=== PATIENT | female | born 1955 | race Caucasian/White ===

== ENCOUNTER → 2018-01-14 07:07 | Outpatient (CLI) | payer OTHER, SELFPAY ==
--- NOTE | 2018-01-14 07:10 | BI_ITS ---
MAMMOGRAPHY - BILATERAL SCREENING 3-D LUCILLE SYNTHESIS REASON FOR EXAM: Female, 62 years old. Bilateral Screening 3-D tomosynthesis PERTINENT HISTORY: Aunt with breast cancer.. TECHNIQUE: 2-D mammograms and 3-D Lucille synthesis of the breast (s) were performed. CAD was performed. COMPARISON: 01/11/2017 FINDINGS: The breast composition is heterogeneously dense that can obscure small breast masses. Scattered benign calcifications are seen. No dense spiculated masses or suspicious microcalcifications are identified. No architectural distortion is identified. There is no skin thickening or retraction. There has been no significant change since the prior study. BI/SCREENING MAMM (CAD), BILAT IMPRESSION: No mammographic signs of malignancy. Routine yearly mammograms recommended. ASSESSMENT CATEGORY: BIRADS Category 2: Benign. A letter regarding these results will be sent to the patient by the facility within 30 days. FOLLOW UP RECOMMENDATION: Yearly follow up mammogram recommended. (A) Approximately 10% of breast cancers are not detected by mammography. A normal mammogram should not delay biopsy of a clinically suspicious abnormality. Electronically Signed: Boyd Portillo MD at 8:42 EDT , Service support ,
== END ==
PROVIDERS: Family Provider Internal Medicine; PCP Internal Medicine; Visit Provider Internal Medicine
DX: Z12.31 Encounter for screening mammogram for malignant neoplasm of breast (principal)
CPT/HCPCS: 77063; 77067

== ENCOUNTER → 2018-07-27 14:21 | Outpatient (CLI) | payer SELFPAY ==
--- NOTE | 2018-07-27 14:25 | CT_ITS ---
HISTORY: Hyperlipidemia. CT chest over-read only for calcium scoring. Exam: Limited CT chest without contrast for coronary artery calcium scoring. TECHNIQUE: Helically acquired images were obtained of the chest and processed for coronary artery calcium scoring. IV Contrast dosage and agent: None. Oral contrast: None. COMPARISON: Chest x-ray 07/26/2014 Findings: Coronary artery calcium scores as follows: Left main: 0 Left anterior descendin Left circumflex: 0 Right coronary artery: 0 Total calcium score: 0 Limited visualization of the lung parenchyma. On image #24, right middle lobe 5 x 3 mm circumscribed nodule which is probably benign and appears noncalcified. Normal heart size. No pericardial effusion. Numerous small calcifications within both breasts in keeping with adenosis. CT/Limited Chest CT w/CCTA IMPRESSION: 1. CT calcium score of 0. 2. Right middle lobe 5 mm nodule which is probably benign and too small to further characterize by PET scan. 3. Recommend reevaluation with follow-up CT chest without contrast in 6 months to assure stability. Individualized dose optimization techniques were used for this CT. at [id number] Reported and signed by: John Duggan MD Electronically Signed: John Duggan, at 5:46 EST Tel , Service support ,
[2018-07-27 14:52] VITALS: BP 104/59; PULSE 50; RESP 14; O2SAT 99; BMI 23.7
--- NOTE | 2018-07-27 17:39 | CCTA_ITS ---
Calcium Scoring Date of Study:: 07/27/18 Coronary Calcium Scoring: High-resolution computed tomographic imaging of the chest was performed on 07/27/2018 with particular attention paid to the coronary arteries. Images from the examination were analyzed for the presence and extent of coronary artery calcification using the coronary calcification software. The patient tolerated the procedure well there were no complications. The results of the coronary calcification analysis are provided below. Coronary artery score. Left main 0 Left anterior descending artery 0 Left circumflex artery 0 Right coronary artery 0 Total Agagston score 0 Based on the above findings the patient has minimal to no evidence of atherosc lerotic plaquing.
== END ==
PROVIDERS: Family Provider Internal Medicine; PCP Internal Medicine; Referring Provider Internal Medicine; Visit Provider Internal Medicine
DX: E78.5 Hyperlipidemia, unspecified (principal)
CPT/HCPCS: 75571; 76380

== ENCOUNTER → 2018-07-28 08:29 | Outpatient (CLI) | payer OTHER, SELFPAY ==
[2018-07-27 14:52] VITALS: BMI 23.7
--- NOTE | 2018-07-28 08:48 | BD_ITS ---
STUDY: DUAL ENERGY X-RAY ABSORPTIOMETRY / DXA REASON FOR EXAM: Female, 62 years old. The patient is postmenopausal. No loss of height. TECHNIQUE: Bone Mineral Density (BMD) measurements of lumbar spine and bilateral hips were obtained. COMPARISON: Comparison is made with prior study dated January 31, 2014. FINDINGS: Lumbar Spine (L1-L4): g/cm2 (1.081) / T-score (-0.8) / Z-score (0.7) Findings are suggestive of normal bone density with a low fracture risk. Left Femur Total: g/cm2 (0.925) / T-score (-0.7) / Z-score (0.5) Left Femoral Neck: g/cm2 (0.794) / T-score (-1.8) / Z-score (-0.3) Right Femur Total: g/cm2 (0.924) / T-score (-0.7) / Z-score (0.5) Right Femoral Neck: g/cm2 (0.868) / T-score (-1.2) / Z-score (0.2) The T-Scores on the most recent prior examination were: Lumbar Spine (L1-L4): There has been worsening of bone density since the previous examination. Left Femur Total: which represents a worsening of 2.3%. Right Femur Total: which represents a worsening of 2.0%. BD/Dexa Bone Density Study IMPRESSION: The patient is considered osteopenic as outlined below according to World Cresencio Organization (WHO) criteria with a moderate fracture risk. There has been worsening of bone density since the previous examination. Reference Information: The T-score is the number of standard deviations above or below the standard which is normal for young adults at their peak bone mineral density. The World Health Organization (WHO) interprets the T-scores as follows: Above -1 Normal bone density Between -1 and -2.5 Osteopenia Equal to / or below -2.5 Osteoporosis As a practical clinical guideline, osteopenia may be graded as follows: Mild -1 through -1.5 Moderate -1.6 through -2.0 Severe -2.1 through -2.4 The Z-score is the number of standard deviations above or below age-matched controls. A Z-score of less than -1.5 would be considered abnormal. References: 1. NIH Osteoporosis and Related Bone Diseases http://www.osteo.org 2. International Society for Clinical Densitometry http://www.iscd.org 3. National Osteoporosis Foundation http://www.nof.org Electronically Signed: Raman Cox MD at 15:53 EST , Service support ,
== END ==
PROVIDERS: Family Provider Internal Medicine; PCP Internal Medicine; Referring Provider Internal Medicine; Visit Provider Internal Medicine
DX: N95.1 Menopausal and female climacteric states (principal)
CPT/HCPCS: 77080

== ENCOUNTER → 2018-12-20 07:49 | Outpatient (CLI) | payer MEDICARE, OTHER, SELFPAY ==
[2018-07-27 14:52] VITALS: BMI 23.7
--- NOTE | 2018-12-20 07:52 | CT_ITS ---
STUDY: CT CHEST WITHOUT CONTRAST REASON FOR EXAM: Female, 63 years old. Follow-up nodule RADIATION DOSAGE (If Supplied By Facility): CTDIvol = ( 8.91 ) mGy, DLP = ( 320.74 ) mGycm TECHNIQUE: Transaxial imaging was performed without the administration of intravenous contrast material. Individualized dose optimization techniques were used for this CT. COMPARISON: Previous study of July 27, 2018 FINDINGS: There is a stable 4 mm nodule of the right middle lobe image 68 series 4. No new or additional nodules are evident. There is no demonstrated pleural abnormality. Normal heart and pericardium. Normal mediastinum. Normal hilar regions. Normal unenhanced pulmonary arteries. Normal aorta arch and descending thoracic aorta. There is mild diffuse endplate spondylosis of the thoracic vertebrae. There is no demonstrated abnormality of the visualized upper abdomen. CT/Chest without Contrast IMPRESSION: Stable 4 mm nodule of the right middle lobe. Appropriate follow-up using Fleischner Society criteria is recommended. Mild diffuse endplate spondylosis of the thoracic spine. Electronically Signed: Brandt Barbour MD at 20:16 EDT , Service support ,
== END ==
PROVIDERS: Family Provider Internal Medicine; PCP Internal Medicine; Referring Provider Internal Medicine; Visit Provider Internal Medicine
DX: R91.8 Other nonspecific abnormal finding of lung field (principal)
CPT/HCPCS: 71250

== ENCOUNTER → 2019-01-16 07:10 | Outpatient (CLI) | payer MEDICARE, OTHER, SELFPAY ==
[2018-07-27 14:52] VITALS: BMI 23.7
--- NOTE | 2019-01-16 07:12 | BI_ITS ---
MAMMOGRAPHY - BILATERAL SCREENING REASON FOR EXAM: Female, 63 years old. Routine annual screening examination. PERTINENT HISTORY: Aunts with breast cancer. TECHNIQUE: Digital bilateral breast lucille (3D mammographic acquisition) in the CC and MLO projections. 2-D mediolateral oblique (MLO) and craniocaudad (CC) views of both breasts were obtained. CAD: Full Field Digital Mammography with Computer Added Detection was performed. COMPARISON: Comparison is made with prior study dated January 14, 2018 and January 11, 2017. FINDINGS: Breast Composition: The breasts are heterogeneously dense, which may obscure small masses. There are no dominant masses or suspicious calcifications. Stable scattered macrocalcifications. No other significant abnormalities are identified. There has been no significant change since the prior study. BI/SCREEN MAMM (CAD) W/LUCILLE BILAT IMPRESSION: Stable bilateral screening mammogram. Yearly follow-up mammogram recommended. (A) ASSESSMENT CATEGORY: BIRADS Category 2: Benign. A letter regarding these results will be sent to the patient by the facility within 30 days. Approximately 10% of breast cancers are not detected by mammography. A normal mammogram should not delay biopsy of a clinically suspicious abnormality. [id number] Electronically Signed: Raman Cox, at 9:12 EDT , Service support ,
== END ==
PROVIDERS: Family Provider Internal Medicine; PCP Internal Medicine; Referring Provider Internal Medicine; Visit Provider Internal Medicine
DX: Z12.31 Encounter for screening mammogram for malignant neoplasm of breast (principal); Z80.3 Family history of malignant neoplasm of breast
CPT/HCPCS: 77063; 77067

== ENCOUNTER → 2020-01-22 13:59 | Outpatient (CLI) | payer MEDICARE, OTHER, SELFPAY ==
[2018-07-27 14:52] VITALS: BMI 23.7
--- NOTE | 2020-01-22 14:02 | BI_ITS ---
MAMMOGRAPHY - BILATERAL SCREENING REASON FOR EXAM: Female, 64 years old. Routine annual screening examination. PERTINENT HISTORY: Aunts with breast cancer. TECHNIQUE: Digital bilateral breast lucille (3D mammographic acquisition) in the CC and MLO projections. 2-D mediolateral oblique (MLO) and craniocaudad (CC) views of both breasts were obtained. CAD: Full Field Digital Mammography with Computer Added Detection was performed. COMPARISON: Comparison is made with prior study dated 01/16/2019 and 01/14/2018. FINDINGS: Breast Composition: The breasts are heterogeneously dense, which may obscure small masses. There are no dominant masses or suspicious calcifications. Stable scattered macrocalcifications. No other significant abnormalities are identified. There has been no significant change since the prior study. BI/SCREEN MAMM (CAD) W/LUCILLE BILAT IMPRESSION: Stable bilateral screening mammogram. Yearly follow-up mammogram recommended. (A) ASSESSMENT CATEGORY: BIRADS Category 2: Benign. A letter regarding these results will be sent to the patient by the facility within 30 days. Approximately 10% of breast cancers are not detected by mammography. A normal mammogram should not delay biopsy of a clinically suspicious abnormality. [id number] Electronically Signed: Raman Cox, at 15:05 EDT , Service support ,
--- NOTE | 2020-01-22 14:50 | CT_ITS ---
STUDY: CT CHEST WITHOUT CONTRAST REASON FOR EXAM: Female, 64 years old. LUNG NODULE FOLLOW UP RADIATION DOSAGE (If Supplied By Facility): CTDIvol = ( 8.25 ) mGy, DLP = ( 299.47 ) mGycm TECHNIQUE: Transaxial imaging was performed without the administration of intravenous contrast material. Multiplanar coronal and sagittal images were reformatted. Individualized dose optimization techniques were used for this CT. COMPARISON: Comparison is made with prior study dated 12/20/2018. FINDINGS: Small benign-appearing bilateral axillary lymph nodes. Stable minimal scarring at the lung apices. Stable 4 mm noncalcified nodule in the anterior aspect of right middle lobe as seen on axial image #154. There is no demonstrated pleural abnormality. Normal heart and pericardium. Normal mediastinum. Normal hilar regions. Normal unenhanced pulmonary arteries. There is mild atherosclerotic calcification of the aortic arch . There are multi-level degenerative changes of the thoracic spine. There is no demonstrated abnormality of the visualized upper abdomen. CT/Chest without Contrast IMPRESSION: Stable 4 mm nodule in the anterior aspect of the right middle lobe. No other abnormality is seen. Electronically Signed: Raman Cox, at 8:26 EDT , Service support ,
== END ==
PROVIDERS: PCP Internal Medicine; Referring Provider Internal Medicine; Visit Provider Internal Medicine
DX: Z12.31 Encounter for screening mammogram for malignant neoplasm of breast (principal); R91.8 Other nonspecific abnormal finding of lung field
CPT/HCPCS: 71250; 77063; 77067

== ENCOUNTER 2021-02-25 09:30 | Outpatient (RCR) | payer MEDICARE, OTHER, SELFPAY ==
[2018-07-27 14:52] VITALS: BMI 23.7
--- NOTE | 2021-01-30 14:04 | HP.PTEVAL_ITS ---
Patient's Visit Information SHIRA OROZCO is a 65 year old F referred to Physical Therapy by Dr. Merly Wesley MD with a diagnosis of R SCIATICA. Date of Evaluation: 01/30/21 Physical Therapist: Claudine Hernandez PT, Cert MDT - Visit Plan Frequency: 2-3x /Week Duration: 4-6 Weeks Plan: [facility]QUAT[facility] PT FOR PAIN RELIEF, POSTURE CORRECTION/STRENGTHENING, INSTRUCTION IN APPROPRIATE BODY MECHANICS AND ACTIVITY MODIFICATIONS. DLS STARTING WITH A NEUTRAL SPINE PROGRESSING ROM TOLERATED. YOSEPH LE ROM, STRETCHING AND STRENGTHENING. HEP INSTRUCTION. - Subjective Work/Leisure: RETIRED. LIKES TO PLAY [employer] BALL AND DOES SOME HOME EX'S. Present symptoms: RIGHT LOW BACK PAIN, RIGHT THIGH, RIGHT LEG AND RIGHT FOOT PAIN. FEELS LIKE ELECTRICITY GOING THROUGH MY LEG. ALSO GETS NUMBNESS AND TINGLING ALL THE WAY DOWN THE LEG. Present since: ABOUT 8 WEEKS AGO. Pain Scale: WORST 9/10, LEAST 0/10. Currently: /10. Commenced as a result of: NO APPARENT REASON. Symptoms at onset: RIGHT LE. Worse: STANDING, TRYING TO GET COMFORTABLE IN BED, ROLLING OVER IN BED, GETTING OUT OF BED, INITIATING GAIT IN THE MORNING. WORKING IN THE KITCHEN. Better: FLEXION IN STANDING, SITTING ON A CHAIR, RIGHT LE EVELINA POSITION IN SITTING. Disturbed sleep: YES. Previous history/Previous treatment: STATES SHE HAD ABOUT 10 WEEKS OF PHYSICAL THERAPY AT [facility] AUGUST -OCTOBER 2020 FOR PLANTAR FASCITIS LEFT FOOT. STATES SHE HAD NECK, BACK AND HIP ADJUSTMENTS WHILE AT [facility]. THEY ALSO GAVE HER A LIFT IN LEFT SHOE STARTING IN AUGUST. L FOOT SX'S ARE GONE. STILL WEARING THE HEEL LIFT. TRIP TO [facility] ABOUT 2 WEEKS AGO GETTING BACK THIS PAST WEDNESDAY. PATIENT REPORTS SHE ENDED UP WITH A NECK BRACE, A BACK BRACE AND A HEEL LIFT FROM THE [facility]. NOT CURRENTLY USING NECK OR BACK BRACE ANYMORE. Treatment this episode: STEROID BEFORE [facility] - PATIENT DOES NOT THINK IT HELPED. PATIENT DENIES ANY OTHER TREATMENTS SINCE ONSET OF R SCIATICA ABOUT 8 WKS AGO. SCIATICA STARTED WITHIN ABOUT A MONTH AFTER LAST [facility]. Coughing/sneezing/straining: NEGATIVE. Gait: IF IT HURTS IT CAUSES LIMP ON RIGHT LE AND PATIENT WALKS FAST SO SHE CAN GET OFF HER FEET SOON POSSIBLE. WALKING THROUGH AIRPORT WAS AWFUL. Difficulty initiating urinatin: NO. Accidents: NO. Unexplained weight loss: NO. Imaging: JUST LUMBAR X-RAY AT [facility] WHEN THERE FOR PLANTAR FASCITIS. PMH/Recent major surgery: HYPOTHYROIDISM. HIGH CHOLESTEROL. - Objective Sitting/Standing Posture: FAIR. Lordosis: REDUCED. Lateral shift: NO. Relev ant shift: N/A. Active Correction of posture: NE. Other Observations: INDEP GAIT AND TRANSFERS. Motor deficit: YOSEPH LE'S 5/5 WITH MMT'ING EXCEPT R HIP 4-/5 AND L 4/5. Sensory deficit: YOSEPH LE LIGHT TOUCH SENSATION INTACT AND SYMMETRICAL. ROM deficit: YOSEPH LE'S WFL. Reflexes: 2/3 YOSEPH LE'S. DURAL SIGNS: NEGATIVE YOSEPH. Lumbar mvmt loss: flex - NIL. ext - NIL. R SG - MOD. L SG - MOD. Core strength: FAIR. Palpation: NO ACUTE LUMBAR OR SACRAL TENDERNESS. TREATMENT: NEUROMUSCULAR REEDUCATION - RETRAINING OF MVMT AND POSTURE FOR SITTING, LYING AND STANDING ACTIVITIES. - Balance/Special Test Scores Oswestry Low Back Score: 12 - Goals Goal 1:: DECREASE C/O LOW BACK AND RIGHT LE SX'S. Goal Time Frame: 4-6 Weeks Goal 2:: IMPROVE LIFTING, STANDING, SLEEP, TRAVEL AND HOMEMAKING FUNCTION Goal Time Frame: 4-6 Weeks Goal 3:: INSTRUCT IN PROPHYLAXIS Goal Time Frame: 4-6 Weeks - Anticipated Interventions Patient/Client Instruction: Educate patient on: Condition, Plan of Care, Risk Factors For the Purpose of:: To improve self management Therapeutic Exercise to Include: Strength training, Body mechanics, Postural training, Neuromotor development, In an aquatic setting, Dynamic Lumbar Stabilization For the Purpose of:: To decrease pain, To improve muscle performance and motor function, To increase tolerance to activity/condition/position, To improve ability of physical actions for home/community/work/leisure TENS: Yes IF ES: Yes Cryotherapy (ice pack, ice massage): Yes Thermo therapy (hot pack): Yes Ultrasound (thermal/non thermal): Yes For the Purpose of:: To decrease pain, To improve nutrient delivery to tissue Thank you for the opportunity to evaluate your patient. For Medicare and Medicare HMO plans, please review the plan of care and approve it. It will need to be FAXED BACK to us at [phone] for Medicare purposes. For Medicare only, by signing this I certify the plan of care. Please let me know if there are questions or concerns regarding this plan of care. Physician Signature: Date:
--- NOTE | 2021-02-25 10:46 | HP.PTDCSUM ---
It has been my pleasure to treat SHIRA OROZCO referred by Dr. Merly Wesley MD, with the diagnosis of R SCIATICA for a total of 10 visit(s). Discharge Date: Please see the following information for a summary of their discharge status. Subjective: PATIENT REPORTS SHE WAS PAINFREE ALL DAY YESTERDAY. STATES THAT YESTERDAY SHE COOKED DINNER FOR COMPANY, DID EX'S, CLEANED, GROCERY SHOPPED AND STAYED BUSY. STATES SHE HAD A LITTLE PAIN THIS MORNING DOWN HER RIGHT LEG BUT SHE THINKS SHE GOT OUT OF BED TOO EARLY AND TOO QUICKLY. THE PAIN ONLY LASTED A FEW MINUTES. PATIENT REPORTS FEELING BETTER AFTER THE US TREATMENTS AND QUESTIONING IF SHE CAN HAVE THEM PERIODICALLY NEEDED. Lumbar Spine Pain Intensity (Out of 10): 0 % Improvement: 97 Objective/Function: PATIENT WAS SEEN TODAY FOR RE-ASSESSMENT OF PROGRESS TOWARD THE SET PT GOALS AND THE NEED FOR FURTHER PHYSICAL THERAPY VS READINESS FOR DISCHARGE. PATIENT HAS MADE GOOD PROGRESS TOWARD ALL PT GOALS AND SHE IS INDEP WITH A HEP. I AM HOPEFUL THAT SHE WILL CONTINUE TO IMPROVE WITH WHAT WE HAVE TAUGHT HER AND BE ABLE TO GET BACK TO HER PRIOR LEVEL OF FUNCTION BUT AT THIS POINT SHE IS STILL LIMITING HER ACTIVITES. UPON EXAM TODAY: Motor deficit: YOSEPH LE'S 5/5. ROM deficit: YOSEPH LE'S WFL. DURAL SIGNS: NEGATIVE YOSEPH LE'S. Lumbar mvmt loss: flex - NIL. ext - NIL. R SG - MOD. L SG - MOD. PATIENT DENIES PAIN WITH LUMBAR ROM TESTING ALL PLANES. FURTHER HEP INSTRUCTION GIVEN TODAY FOR THE ADDITION OF GTB LAE'S AND MULTIFIDUS PUSH OUTS. INCREASED MR'S TO BTB. PATIENT TOLERATED ALL INTERVENTIONS WELL TODAY. Goal 1:: DECREASE C/O LOW BACK AND RIGHT LE SX'S. Goal Progress: Goal Met Goal 2:: IMPROVE LIFTING, STANDING, SLEEP, TRAVEL AND HOMEMAKING FUNCTION Goal Progress: Goal Met Goal 3:: INSTRUCT IN PROPHYLAXIS Goal Progress: Goal Met Plan: D/C TO HEP AND FOLLOW UP WITH PCP. PATIENT AGREEABLE. If there are questions or concerns regarding this patient's physical therapy, please feel free to call me at [phone]. Thank you for the referral of this patient. Sincerely, Claudine Hernandez, PT, Cert MDT Balance/Gait/Functional tests - Balance/Special Test Scores Oswestry Low Back Score: 10
== END 2021-02-25 15:50 | disposition home or self-care (01) ==
LOC: PT 09:30
PROVIDERS: PCP Internal Medicine; Referring Provider Internal Medicine; Visit Provider Internal Medicine
DX: M54.31 Sciatica, right side (principal)
CPT/HCPCS: 97035; 97110; 97112; 97113; 97162; 97164; 97530

== ENCOUNTER → 2021-03-12 07:09 | Outpatient (CLI) | payer MEDICARE, OTHER, SELFPAY ==
[2018-07-27 14:52] VITALS: BMI 23.7
--- NOTE | 2021-03-12 07:15 | MRI_ITS ---
HISTORY: Right sciatica. TECHNIQUE: Multiplanar and multisequence MR images of the lumbar spine. IV Contrast dosage and agent: None. # of images incl. paperwork: 120. COMPARISON: None. FINDINGS: VERTEBRAE: Vertebral body heights maintained. Mild bilateral pedicle bone marrow edema at L4-5 extending to the facets. ALIGNMENT: No significant anterior or posterior subluxation. CONUS: Normal morphology and position at L1-2. SOFT TISSUES: No paraspinal fluid collection. INTERVERTEBRAL DISCS: T12-L1, L1-2: No significant posterior disc herniation, central canal stenosis, or foraminal narrowing. Small perineural cysts incidentally noted. L2-3, L3-4:Minimal disc bulges and facet arthropathy without significant central canal stenosis or foraminal narrowing. L4-5: Mild posterior disc bulge osteophyte complex with facet arthropathy resulting in moderate central canal stenosis, mild left, and very mild right foraminal narrowing. L5-S1: Mild posterior disc bulge osteophyte complex with facet arthropathy resulting in minimal narrowing of the thecal sac and bilateral foramina. MRI/Spine Lumbar (Routine) IMPRESSION: Multilevel degenerative disc disease with spinal canal stenosis at L4-5 as described above. Mild bone marrow edema in the posterior elements of L4 and L5, from arthritis or stress reaction. at 1003 Reported and signed by: Charity Blanchard MD Electronically Signed: Charity Blanchard MD at 10:02 EDT Tel , Service support ,
--- NOTE | 2021-03-12 08:22 | BI_ITS ---
MAMMOGRAPHY - BILATERAL SCREENING REASON FOR EXAM: Female, 65 years old. Routine annual screening examination. PERTINENT HISTORY: Aunts with breast cancer. TECHNIQUE: Digital bilateral breast lucille (3D mammographic acquisition) in the CC and MLO projections. 2-D mediolateral oblique (MLO) and craniocaudad (CC) views of both breasts were obtained. CAD: Full Field Digital Mammography with Computer Added Detection was performed. COMPARISON: Comparison is made with prior study dated 01/22/2020 and 01/16/2019. FINDINGS: Breast Composition: The breasts are heterogeneously dense, which may obscure small masses. There are no dominant masses or suspicious calcifications. Stable scattered bilateral macrocalcifications. No other significant abnormalities are identified. There has been no significant change since the prior study. BI/SCRN MAMM (CAD)W/LUCILLE BILAT IMPRESSION: Stable bilateral screening mammogram. Yearly follow-up mammogram recommended. (A) ASSESSMENT CATEGORY: BIRADS Category 2: Benign. A letter regarding these results will be sent to the patient by the facility within 30 days. Approximately 10% of breast cancers are not detected by mammography. A normal mammogram should not delay biopsy of a clinically suspicious abnormality. [id number] Electronically Signed: Raman Cox MD at 9:41 EDT , Service support ,
== END ==
PROVIDERS: PCP Internal Medicine; Referring Provider Internal Medicine; Visit Provider Internal Medicine
DX: Z12.31 Encounter for screening mammogram for malignant neoplasm of breast (principal); M54.31 Sciatica, right side; M51.36 Other intervertebral disc degeneration, lumbar region; M48.061 Spinal stenosis, lumbar region without neurogenic claudication
CPT/HCPCS: 72148; 77063; 77067

== ENCOUNTER 2021-05-16 11:00 | Emergency (ER) | payer MEDICARE, OTHER, SELFPAY ==
[2021-05-16 11:01] VITALS: BP 130/79; PULSE 67; RESP 18; TEMP 36.6; O2SAT 100; BMI 24.1
--- NOTE | 2021-05-16 11:26 | RAD_ITS ---
No fracture or dislocation in the left ankle. Mild soft tissue swelling. STUDY: X-RAY - LEFT ANKLE REASON FOR EXAM: Female, 65 years old. Injury TECHNIQUE: 3 view(s) of the ankle. COMPARISON: None. FINDINGS: There is no evidence of fracture or dislocation. There are no significant degenerative changes. There are no radiodense foreign bodies. There is mild soft tissue swelling. RAD/Ankle min 3 Views IMPRESSION: No fracture or dislocation. Electronically Signed: Kevon Jo MD at 12:04 EST Tel , Service support ,
--- NOTE | 2021-05-16 12:48 | ED.VIS.LOWEX ---
HPI History of Present Illness Chief Complaint: Lower Extremity Injury Informant: patient Narrative Narrative: 65-year-old female arrives to the emergency department with left ankle injury. Patient states that she was playing pickle ball when she sustained a inversion injury to the left ankle. She denies any other injuries. [facility] Medical History Hypothyroidism Home Medications levothyroxine 88 mcg tablet 88 mcg PO DAILY 30 Days #30 tab 03/28/21 [History Last Taken Unknown] [id number]-Ca carb-vit K 18 mg iron-400 mcg-500 mg tablet 1 tab PO DAILY 03/28/21 [History Last Taken Unknown] rosuvastatin 5 mg tablet 5 mg PO DAILY 28 Days #28 tab 03/28/21 [History Last Taken Unknown] Allergy/AdvReac Type Severity Reaction Status Date / Time No Known Allergies Allergy Verified 05/16/21 11:03 Family History Father CVA (cerebral vascular accident), Onset Age: 82 Surgical History H/O tubal ligation History of foot surgery Social History Smoking Status: Never smoker alcohol intake: current Alcohol type: wine ROS ROS ED Constitutional Constitutional ED: Denies chills, fever(s) or weight loss Eyes Eyes: Denies change in vision or diplopia ENT ENT ED: Denies ear pain, rhinorrhea or sore throat Cardiovascular Cardiovascular: Denies chest pain, orthopnea, palpitations or racing heartbeat Respiratory/Chest Respiratory/Chest: Denies cough, dyspnea or orthopnea Gastrointestinal Gastrointestinal: Denies abdominal pain, diarrhea, nausea or vomiting Genitourinary Genitourinary ED: Denies dysuria, hematuria or urinary frequency Musculoskeletal Musculoskeletal: Reports other Details: See history of present illness ; Denies arthralgias or myalgias Integumentary Denies abscess or rash Neurologic Neurologic: Denies headache(s) or weakness Psychiatric Psychiatric: Denies anxiety, depression, suicidal ideation or suicidal thoughts Endocrine Endocrinology: Denies polydipsia, polyphagia or polyuria Allergic/Immunologic Allergic/Immunologic ED: Denies mouth swelling, tongue swelling or urticaria EXAM Physical Exam Const Vital Signs: 05/16/21 11:01 Temperature 97.9 F Temperature Source Temporal Pulse Rate 67 Respiratory Rate 18 Blood Pressure 130/79 H Blood Pressure Mean 96 Pulse Ox 100 Oxygen Delivery Method Room Air Positive well nourished and well developed General Appearance ED: well developed HEENT Reports normocephalic, head/scalp atraumatic and moist mucous membranes normocephalic and atraumatic Eyes PERRL and EOMs intact bilaterally Neck full ROM, no lymphadenopathy, supple and no JVD Resp normal respiratory effort and clear to auscultation bilaterally Cardio regular rate, regular rhythm and no murmurs GI normal to inspection, nondistended, normoactive bowel sounds and non-tender Palpation: soft Back/Spine no CVA tenderness and normal ROM Extremity Extremity Narrative: Left ankle demonstrates swelling and tenderness over the lateral malleolus. There is no fifth metatarsal pain or fibular head pain. No medial or posterior malleoli or pain. Achilles tendon appears intact. General Extremety ED: Yes edema General Extremity: edema Neuro oriented x3 and CN's II-XII intact bilaterally Sensorium / Orientation: alert Motor Exam: strength 5/5 throughout Psych mental status grossly normal Mood & Affect: Negative for depressed or tearful Skin no rashes or lesions noted and no wounds MDM MDM MDM Narrative Medical decision making narrative: My interpretation of the ankle films is no acute fracture. Patient will be treated conservatively and will use an air cast Radiography Diagnostic Testing: Clinical Impression(s) from Imaging Studies Ankle X-Ray 05/16/21 11:26 IMPRESSION: No fracture or dislocation. Electronically Signed: Kevon Jo MD at 12:04 EST Tel , Service support , Discharge Plan Triage Chief Complaint: Lower Extremity Injury ED Provider: Teo Castellanos Dx/Rx/DC Orders Clinical Impression: Left ankle sprain Instructions: ED Ankle Sprain (Adult) Prescriptions: No Action levothyroxine 88 mcg tablet 88 mcg PO DAILY 30 Days Qty: 30 RF: 0 rosuvastatin 5 mg tablet 5 mg PO DAILY 28 Days Qty: 28 RF: 0 Women's Daily Formula 18 mg iron-400 mcg-500 mg tablet 1 tab PO DAILY RF: 0 Primary Care Provider: Merly Wesley Referrals: Merly Wesley MD [Primary Care Provider] - As Needed Disposition Disposition: Home, Self Care
[2021-05-16 13:06] VITALS: BP 115/70; PULSE 73; RESP 18; O2SAT 98
== END 2021-05-16 13:07 | disposition home or self-care (01) ==
PROVIDERS: Emergency Provider Emergency Medicine; PCP Internal Medicine
DX: S93.402A Sprain of unspecified ligament of left ankle, initial encounter (principal); X50.1XXA Overexertion from prolonged static or awkward postures, initial encounter; Y93.89 Activity, other specified; Y92.9 Unspecified place or not applicable; Y99.8 Other external cause status; E03.9 Hypothyroidism, unspecified; Z79.899 Other long term (current) drug therapy
CPT/HCPCS: 73610; 99283

== ENCOUNTER 2021-09-15 13:53 | Outpatient (CLI) | payer MEDICARE, OTHER, SELFPAY ==
--- NOTE | 2021-09-15 13:55 | CT_ITS ---
STUDY: CT Chest W/O Contrast Injection 09/15/2021 5:43 PM REASON FOR EXAM: Female, 65 years old. LUNG NODULE Individualized dose optimization techniques were used for this CT. TECHNIQUE: Transaxial imaging was performed withoutIV contrast material. COMPARISON: 8.3.20 FINDINGS: There is no pneumothorax. There is no demonstrated pleural abnormality. 3.1 mm nodule in the right middle lobe. SE 4 IM: 75. ACR Lung CT Screening Reporting T Data System (Lung-RADS) score: 2 - Benign Appearance or Behavior. Recommend continued annual screening with low-dose CT (LDCT) in 12 months. Normal heart and pericardium with no evidence for calcifications of the coronary arteries. Normal mediastinum. Normal hilar regions. Normal pulmonary arteries. There is atherosclerotic calcification of the aortic arch with tortuosity and elongation of the aortic arch and descending thoracic aorta. There are multi-level degenerative changes of the thoracic spine. There are no acute findings of the upper abdomen. CT/Chest without Contrast IMPRESSION: 3.1 mm nodule in the right middle lobe. SE 4 IM: 75. This is decreased in size. ACR Lung CT Screening Reporting T Data System (Lung-RADS) score: 2 - Benign Appearance or Behavior. Recommend continued annual screening with low-dose CT (LDCT) in 12 months. Electronically Signed: Eron Osorio MD at 17:46 EDT ,
== END 2021-09-15 23:59 | disposition home or self-care (01) ==
LOC: CT 13:54
PROVIDERS: PCP Internal Medicine; Referring Provider Internal Medicine; Visit Provider Internal Medicine
DX: R91.8 Other nonspecific abnormal finding of lung field (principal)
CPT/HCPCS: 71250

== ENCOUNTER → 2022-03-17 | Outpatient (CLI) | payer MEDICARE, OTHER, SELFPAY ==
--- NOTE | 2022-03-17 13:46 | BI_ITS ---
MAMMOGRAPHY - BILATERAL SCREENING REASON FOR EXAM: Female, 66 years old. Routine annual screening examination. PERTINENT HISTORY: Aunts with breast cancer. TECHNIQUE: Digital bilateral breast lucille (3D mammographic acquisition) in the CC and MLO projections. 2-D mediolateral oblique (MLO) and craniocaudad (CC) views of both breasts were obtained. CAD: Full Field Digital Mammography with Computer Added Detection was performed. COMPARISON: Comparison is made with prior study dated 03/12/2021 and 01/22/2020. FINDINGS: Breast Composition: The breasts are heterogeneously dense, which may obscure small masses. There are no dominant masses or suspicious calcifications. Stable scattered bilateral macrocalcifications. No other significant abnormalities are identified. There has been no significant change since the prior study. BI/SCRN MAMM (CAD)W/LUCILLE BILAT IMPRESSION: Stable bilateral screening mammogram. Yearly follow-up mammogram recommended. (A) ASSESSMENT CATEGORY: BIRADS Category 2: Benign. A letter regarding these results will be sent to the patient by the facility within 30 days. Approximately 10% of breast cancers are not detected by mammography. A normal mammogram should not delay biopsy of a clinically suspicious abnormality. [id number] Electronically Signed: Raman Cox MD at 14:33 EDT ,
--- NOTE | 2022-03-17 13:53 | BD_ITS ---
STUDY: DUAL ENERGY X-RAY ABSORPTIOMETRY / DXA REASON FOR EXAM: Female, 66 years old. [id number]. The patient is postmenopausal. TECHNIQUE: Bone Mineral Density (BMD) measurements of lumbar spine and bilateral hips were obtained. COMPARISON: Comparison is made with prior study 07/28/2018. FINDINGS: Lumbar Spine (L1-L4): g/cm2 (0.831) / T-score (-1.7) / Z-score (0.3) Findings are suggestive of osteopenia with a moderate fracture risk. Left Femur Total: g/cm2 (0.872) / T-score (-0.6) / Z-score (0.8) Left Femoral Neck: g/cm2 (0.706) / T-score (-1.3) / Z-score (0.4) Right Femur Total: g/cm2 (0.879) / T-score (-0.5) / Z-score (0.9) Right Femoral Neck: g/cm2 (0.749) / T-score (-0.9) / Z-score (0.8) The T-Scores on the most recent prior examination were: Lumbar Spine (L1-L4): There has been worsening of bone density since the previous examination. Left Femur Total: which represents an improvement of 2.1%. Right Femur Total: which represents an improvement of 2.3%. BD/Dexa Bone Density Study IMPRESSION: The patient is considered osteopenic as outlined below according to World Cresencio Organization (WHO) criteria with a moderate fracture risk. There has been improvement of bone density since the previous examination. Reference Information: The T-score is the number of standard deviations above or below the standard which is normal for young adults at their peak bone mineral density. The World Health Organization (WHO) interprets the T-scores as follows: Above -1 Normal bone density Between -1 and -2.5 Osteopenia Equal to / or below -2.5 Osteoporosis As a practical clinical guideline, osteopenia may be graded as follows: Mild -1 through -1.5 Moderate -1.6 through -2.0 Severe -2.1 through -2.4 The Z-score is the number of standard deviations above or below age-matched controls. A Z-score of less than -1.5 would be considered abnormal. References: 1. NIH Osteoporosis and Related Bone Diseases www osteo.org 2. International Society for Clinical Densitometry www iscd.org 3. National Osteoporosis Foundation www nof.org Electronically Signed: Raman Cox MD at 13:37 EDT ,
== END | disposition home or self-care (01) ==
LOC: OPBI 13:43
PROVIDERS: PCP Internal Medicine; Visit Provider Internal Medicine
DX: Z12.31 Encounter for screening mammogram for malignant neoplasm of breast (principal); Z80.3 Family history of malignant neoplasm of breast; Z78.0 Asymptomatic menopausal state
CPT/HCPCS: 77063; 77067; 77080

== ENCOUNTER → 2022-10-07 | Outpatient (CLI) | payer MEDICARE, OTHER, SELFPAY ==
--- NOTE | 2022-10-07 12:01 | EKG12_ITS ---
Test Reason : PRE-OP Blood Pressure : / mmHG Vent. Rate : 062 BPM Atrial Rate : 062 BPM P-R Int : 176 ms QRS Dur : 112 ms QT Int : 408 ms P-R-T Axes : 057 -53 040 degrees QTc Int : 414 ms Normal sinus rhythm Left anterior fascicular block Abnormal ECG Confirmed by CARTER WELLINGTON, EMERY ([id number]), technical editor MICHEAL BOWMAN ([id number]) on 10/08/2022 7:44:12 AM Referred By: Kevon Avery Confirmed By:EMERY MACHADO MD
[2022-10-07 12:53] LABS: Absolute Lymphocyte Count 2.63 X10^3/uL (0.83-4.51); Absolute Neutrophil Count 4.3 X10^3/uL (2.0-7.7); Basophil# 0.06 X10^3/uL; Basophil% 0.8 % (0-1); Eosinophil# 0.23 X10^3/uL; Hematocrit 42.3 % (37-47); Lymphocyte # 2.63 X10^3/ul (0.83-4.51); Lymphocyte % 34.3 % (19-41); Mean Corp Hgb Conc 33.1 g/dL (32-36); Mean Corpuscular Volume 93.6 fL (81-99); Mean Platelet Vol. 8.7 fl (6.2-12.0); Monocyte# 0.46 X10^3/uL; NRBC Flagged by Analyzer 0 % (0-5); Neutrophil # 4.25 X10^3/uL (2.7-7.7); Neutrophil % 55.4 % (47-70); Platelet Count 268 K/mm3 (150-450); RBC Distribution Width SD 45.1 fl (35.1-43.9); Red Blood Count 4.52 M/mm3 (4.2-5.4); White Blood Count 7.7 K/mm3 (4.4-11.0)
[2022-10-07 13:23] LABS: Anion Gap 2 (5-15); BUN 26 mg/dL (7-18); BUN/Creat Ratio 24.5 RATIO (10-20); Chloride 106 mmol/L (98-107); Creatinine, Serum 1.06 mg/dL (0.55-1.02); EST Glomerular Filtration Rate 55 mL/min (>60); Est Glom Filt Rate - Afr Amer 66 mL/min (>60); Glucose 83 mg/dL (74-106); Potassium 4.4 mmol/L (3.5-5.1); Sodium Level 137 mmol/L (136-145)
== END | disposition home or self-care (01) ==
PROVIDERS: PCP Internal Medicine; Referring Provider Specialist; Visit Provider Physician Assistant Surgical
DX: Z01.818 Encounter for other preprocedural examination (principal)
CPT/HCPCS: 36415; 80048; 85025; 93005

== ENCOUNTER → 2023-01-05 | Outpatient (CLI) | payer MEDICARE, OTHER, SELFPAY ==
--- NOTE | 2023-01-05 15:13 | US_ITS ---
INDICATION: Hematuria EXAMINATION: Ultrasound US Kidney(s) complete (eg, kidneys and bladder) TECHNIQUE: Martinez scale and color doppler images were obtained of the kidneys. Imaging is degraded by bowel gas, particularly for the left kidney. COMPARISON: Right upper quadrant ultrasound February 19, 2017; bilateral renal ultrasound June 23, 2016. FINDINGS: RIGHT KIDNEY: 10.57 x 3.40 x 4.39 cm. Cortical thickness is 1.24 cm.. There is no hydronephrosis. No shadowing calculus, focal lesion or perinephric collection is demonstrated. LEFT KIDNEY: 9.71 x 4.79 x 4.63 cm. Cortical thickness is 1.41 cm.. There is no hydronephrosis. No shadowing calculus, focal lesion or perinephric collection is demonstrated. URINARY BLADDER: No acute abnormality. At the time of scanning, the bladder was 7.68 x 7.80 x 9.37 cm, corresponding to a volume of 294 mL. Anterior bladder wall thickness was 5.9 mm US/Kidney and Bladder IMPRESSION: Negative renal ultrasound. Electronically Signed: Boyd Segundo MD at 16:42 EDT Reading Location ID and State: [id number] / Unknown , Service support ,
== END | disposition home or self-care (01) ==
LOC: US 15:12
PROVIDERS: PCP Internal Medicine; Referring Provider Internal Medicine; Visit Provider Internal Medicine
DX: R31.9 Hematuria, unspecified (principal)
CPT/HCPCS: 76770

== ENCOUNTER → 2023-01-07 | Outpatient (CLI) | payer MEDICARE, OTHER, SELFPAY ==
--- NOTE | 2023-01-07 07:56 | CT_ITS ---
INDICATION: Lung nodule EXAMINATION: CT CHEST WITHOUT CONTRAST - CT Chest W/O Contrast Injection TECHNIQUE: Helically acquired images were obtained of the chest. A radiation dose optimization technique was used for this scan. IV Contrast dosage and agent: None. RADIATION DOSAGE (If Supplied By Facility): CTDIvol = ( 7.48 ) mGy, DLP = ( 280.49 ) mGycm COMPARISON: September 15, 2021 FINDINGS: LUNGS, PLEURA AND LARGE AIRWAYS: There is a stable 3 mm nodule in the right middle lobe axial image 73. There is stable reticular nodular scarring in the lung apices. No pleural effusion or thickening. No pneumothorax. THYROID: No thyroid lesions. HEART AND PERICARDIUM: Heart size is normal. No pericardial effusion. CORONARY ARTERIES: Coronary artery calcification VESSELS: Thoracic aorta is not dilated. MEDIASTINUM AND LINDA: No mediastinal or hilar adenopathy. Esophagus is unremarkable. No hiatal hernia. UPPER ABDOMEN: No acute pathology. BONES: No suspicious lytic or blastic abnormality. Bilateral breast calculations are identified. CT/Chest without Contrast IMPRESSION: Stable right middle lobe lung nodule. Continued follow-up recommended. Bilateral breast calcifications. Mammographic follow-up can be obtained for further evaluation. Electronically Signed: Teo Modi, at 9:05 EDT Reading Location ID and State: [facility] / [place] Tel , Service support ,
== END | disposition home or self-care (01) ==
LOC: CT 07:54
PROVIDERS: PCP Internal Medicine; Referring Provider Internal Medicine; Visit Provider Internal Medicine
DX: R91.1 Solitary pulmonary nodule (principal)
CPT/HCPCS: 71250

== ENCOUNTER → 2023-02-12 | Outpatient (CLI) | payer MEDICARE, OTHER, SELFPAY ==
--- NOTE | 2023-02-12 12:21 | CT_ITS ---
INDICATION: Limited chest overread onlyCALCIUM SCORING EXAMINATION: CT CHEST WITHOUT CONTRAST - CT Chest W/O Contrast Injection TECHNIQUE: Helically acquired images were obtained of the chest. A radiation dose optimization technique was used for this scan. IV Contrast dosage and agent: None. COMPARISON: 01/07/2023 FINDINGS: LUNGS, PLEURA AND LARGE AIRWAYS: There is no change in the form of minor noncalcified nodule in the right middle lobe lung zone image 39 consistent with a noncalcified granuloma or scar. No new noncalcified nodule or mass. No pleural effusion or thickening. No pneumothorax. THYROID: No thyroid lesions. HEART AND PERICARDIUM: Heart size is normal. No pericardial effusion. CORONARY ARTERIES: Coronary artery calcification is not seen. VESSELS: Thoracic aorta is not dilated. MEDIASTINUM AND LINDA: No mediastinal or hilar adenopathy. Esophagus is unremarkable. No hiatal hernia. UPPER ABDOMEN: No acute pathology. BONES: No suspicious lytic or blastic abnormality. CT/Limited Chest CT Cardiac Only IMPRESSION: No active disease on this limited CT the chest done for coronary artery calcium scoring. The patient has had a recent complete CT of the chest. Electronically Signed: Med Stanford MD at 9:53 EDT ,
--- NOTE | 2023-02-23 12:20 | CA.SCORE ---
Calcium Scoring Date of Study:: 02/12/23 Indications Indications: Hypercholesterolemia Coronary Calcium Scoring: High-resolution Computed Tomographic imaging of the chest was performed on [02/12/2023], with particular attention paid to the coronary arteries. Images from the examination were analyzed for the presence and extent of coronary artery calcification , using coronary calcium quantification software. The patient tolerated the procedure well and there were no complications. The results of the coronary calcification analysis are provided below. Findings Coronary Artery Left Main (LM): 0 Left Anterior Descending (LAD): 0 Left Circumflex (LCX): 0 Right Coronary Artery (RCA): 0 Total Agatston Score: 0 Percentile Rankin percentile Calcium Scoring Interpretation: Different methods to categorize the overall amount of coronary plaque. Overall amount CAC SIS Visual of coronary plaque P1 Mild -100 <2 1-2 vessels with mild amount of plaque P2 Moderate 101-300 3-4 1-2 vessels with moderate amount, 3 vessels with mild amount of plaque P3 Severe 301-999 5-7 3 vessels with moderate amount, 1 vessel with severe amount of plaque P4 Extensive >1000 >8 2-3 vessels with severe amount of plaque Conclusion: No significant atherosclerotic plaquing noted.
== END | disposition home or self-care (01) ==
PROVIDERS: PCP Internal Medicine; Referring Provider Internal Medicine; Visit Provider Internal Medicine
DX: E78.00 Pure hypercholesterolemia, unspecified (principal)
CPT/HCPCS: 75571; 76380

== ENCOUNTER → 2023-03-22 | Outpatient (CLI) | payer MEDICARE, OTHER, SELFPAY ==
--- NOTE | 2023-03-22 07:53 | BI_ITS ---
MAMMOGRAPHY - BILATERAL SCREENING REASON FOR EXAM: Female, 67 years old. Routine annual screening examination. PERTINENT HISTORY: Aunts with breast cancer. TECHNIQUE: Digital bilateral breast lucille (3D mammographic acquisition) in the CC and MLO projections. 2-D mediolateral oblique (MLO) and craniocaudad (CC) views of both breasts were obtained. CAD: Full Field Digital Mammography with Computer Added Detection was performed. COMPARISON: Comparison is made with prior examination of March 17, 2022 and March 12, 2021. FINDINGS: Breast Composition: The breasts are heterogeneously dense, which may obscure small masses. There are no dominant masses or suspicious calcifications. Stable bilateral macrocalcifications. No other significant abnormalities are identified. There has been no significant change since the prior study. BI/SCRN MAMM (CAD)W/LUCILLE BILAT IMPRESSION: Stable bilateral screening mammogram. Yearly follow-up mammogram recommended. (A) ASSESSMENT CATEGORY: BIRADS Category 2: Benign. A letter regarding these results will be sent to the patient by the facility within 30 days. Approximately 10% of breast cancers are not detected by mammography. A normal mammogram should not delay biopsy of a clinically suspicious abnormality. [id number] Electronically Signed: Raman Cox MD at 8:40 EDT ,
== END | disposition home or self-care (01) ==
LOC: OPBI 07:52
PROVIDERS: PCP Internal Medicine; Referring Provider Internal Medicine; Visit Provider Internal Medicine
DX: Z12.31 Encounter for screening mammogram for malignant neoplasm of breast (principal)
CPT/HCPCS: 77063; 77067

== ENCOUNTER → 2024-03-27 | Outpatient (CLI) | payer MEDICARE, OTHER, SELFPAY ==
--- NOTE | 2024-03-27 10:02 | BI_ITS ---
MAMMOGRAPHY - BILATERAL SCREENING REASON FOR EXAM: Female, 68 years old. Routine annual screening examination. PERTINENT HISTORY: Aunts with breast cancer. TECHNIQUE: Digital bilateral breast lucille (3D mammographic acquisition) in the CC and MLO projections. 2-D mediolateral oblique (MLO) and craniocaudad (CC) views of both breasts were obtained. CAD: Full Field Digital Mammography with Computer Added Detection was performed. COMPARISON: Comparison is made with prior study March 22, 2023 and March 17, 2022. FINDINGS: Breast Composition: The breasts are heterogeneously dense, which may obscure small masses. There are no dominant masses or suspicious calcifications. Stable scattered bilateral macrocalcifications. No other significant abnormalities are identified. There has been no significant change since the prior study. BI/SCRN MAMM (CAD)W/LUCILLE BILAT IMPRESSION: Stable bilateral screening mammogram. Yearly follow-up mammogram recommended. (A) ASSESSMENT CATEGORY: BIRADS Category 2: Benign. A letter regarding these results will be sent to the patient by the facility within 30 days. Approximately 10% of breast cancers are not detected by mammography. A normal mammogram should not delay biopsy of a clinically suspicious abnormality. [id number] Electronically Signed: Raman Cox MD at 11:06 EDT ,
== END | disposition home or self-care (01) ==
LOC: OPBI 10:02
PROVIDERS: PCP Internal Medicine; Referring Provider Internal Medicine; Visit Provider Internal Medicine
DX: Z12.31 Encounter for screening mammogram for malignant neoplasm of breast (principal)
CPT/HCPCS: 77063; 77067

== ENCOUNTER 2025-02-25 00:57 | Emergency (ER) | payer MEDICARE, OTHER, SELFPAY ==
[2025-02-25] VITALS (7 sets, daily range): BP systolic 103–124; BP diastolic 66–84; PULSE 56–74; RESP 16–23; TEMP 36.6–36.8; O2SAT 96–99; BMI 24.5
--- NOTE | 2025-02-25 01:00 | EKG12_ITS ---
Test Reason : CP Blood Pressure : */* mmHG Vent. Rate : 53 BPM Atrial Rate : 53 BPM P-R Int : 236 ms QRS Dur : 122 ms QT Int : 456 ms P-R-T Axes : 52 -50 58 degrees QTcB Int : 427 ms Sinus bradycardia with 1st degree A-V block Right bundle branch block Left anterior fascicular block Bifascicular block Abnormal ECG Confirmed by Loki Farley ([id number]), editorial clerk MICHEAL BOWMAN ([id number]) on 02/26/2025 9:48:11 AM Referred By: RUSS Confirmed By: Loki Farley
--- OUTSIDE RECORDS SUMMARY | 2025-02-25 01:16 | XMS RPT_ITS | CCD ---
Author Organization [facility] Care Team Providers Care External Relations Director Name Role Phone Jasper Chong Unavailable EULALIA Fuentes Unavailable Unavailable Unavailable Unavailable Jasper Chong Unavailable EULALIA Fuentes Unavailable Unavailable Unavailable Unavailable Manchak, Jazmin Unavailable Unavailable Genoveva Laxmi Unavailable Unavailable Alfredo EULALIA Unavailable Unavailable Andrés, Joana Unavailable Unavailable Slarb, Maria Elena Unavailable Unavailable Manjajak, Jazmin Unavailable Unavailable Genet Martínez Unavailable Unavailable MARTIN BROOKS Attending Unavailable MARTIN BROOKS Primary Care Unavailable MARITN BROOKS Admitting Unavailable MARTIN BROOKS Attending Unavailable MARTIN BROOKS Primary Care Unavailable MARTIN BROOKS Admitting Unavailable Jasper Chong MD Unavailable Manchak NURYS, Jazmin Unavailable Unavailable Alfredo ANTIQUE AUTOMOBILES REPAIRER, EULALIA Unavailable Unavailable Unavailable Unavailable Bacilio Cotto Unavailable Tristenanais NUNO, Chiquis Unavailable Unavailable Jasper Chong MD Unavailable Bacilio Cotto Unavailable Alfredo ANTIQUE AUTOMOBILES REPAIRER, EULALIA Unavailable Unavailable Tristen FIRE PREVENTION RESEARCH ENGINEER, Chiquis Unavailable Unavailable Manchak FIRE PREVENTION RESEARCH ENGINEER, Jazmin Unavailable Unavailable Unavailable Unavailable Jasper Chong MD Unavailable Slarb ANTIQUE AUTOMOBILES REPAIRER, Maria Elena Unavailable Unavailable Hannah Edmond CNP Unavailable JorgeAntonella Unavailable Andrés ANTIQUE AUTOMOBILES REPAIRER, Joana Unavailable Unavailable Dr. Jasper Chong Primary Care Provider Dr. Ned Guardado Attending Provider DOMINIQUE Nino Referring Provider [phone] Castillo WELLINGTON, Jasper Miller Attending Unavailable Castillo WELLINGTON, Jasper Miller Consulting Unavailable Amena , Dr. Grubbs Unavailable Jef DAVENPORT, Tnoya Unavailable Unavailable [place] ANTIQUE AUTOMOBILES REPAIRER, Norris Unavailable Unavailable Jasper Chong Referring Unavailable Jasper Chong Attending Unavailable Jasper Chong Primary Care Unavailable CASTILLO WELLINGTON, DR HUTCHINSON Primary Care Physician CASTILLO WELLINGTON, DR HUTCHINSON Primary Care Unavailable JORGE WELLINGTON, DR ANTONELLA Palacios Attending Unavailab kemal CHONG MD, DR HUTCHINSON Primary Care Unavailable JORGE WELLINGTON, DR ANTONELLA Palacios Attending Unavailab kemal PATEL MD, DR ANTONELLA Palacios Attending Maryab kemal CHONG MD, DR HUTCHINSON Primary Care Unavailable Allergies Allergy Classification Reported Allergen(s) Allergy Type Date of Onset Reaction(s) Facility NEGATED: Highlighted row has been ruled out! (1 source) Allergy to substance (finding) [facility]; [facility] Work Phone: NEGATED: Highlighted row has been ruled out! (1 source) Allergy to drug (finding) [facility]; [facility] Work Phone: NEGATED: Highlighted row has been ruled out! (1 source) Allergy to substance (finding) 3 [facility]; [facility] Work Phone: NEGATED: Highlighted row has been ruled out! (1 source) Allergy to drug (finding) [facility]; [facility] Work Phone: NEGATED: Highlighted row has been ruled out! (1 source) Allergy to substance (finding) 3 [facility]; [facility] Work Phone: NEGATED: Highlighted row has been ruled out! (1 source) Allergy to drug (finding) [facility]; [facility] Work Phone: NEGATED: Highlighted row has been ruled out! (1 source) Allergy to substance (finding) 3 [facility]; [facility] Work Phone: NEGATED: Highlighted row has been ruled out! (1 source) Allergy to drug (finding) [facility]; [facility] Work Phone: NEGATED: Highlighted row has been ruled out! (1 source) Allergy to substance (finding) 3 [facility]; [facility] Work Phone: NEGATED: Highlighted row has been ruled out! (1 source) Allergy to drug (finding) [facility]; [facility] Work Phone: NEGATED: Highlighted row has been ruled out! (1 source) Allergy to substance (finding) [facility]; [facility] Work Phone: NEGATED: Highlighted row has been ruled out! (1 source) Allergy to drug (finding) [facility]; [facility] Work Phone: NEGATED: Highlighted row has been ruled out! (1 source) Allergy to substance (finding) 3 [facility]; [facility] Work Phone: NEGATED: Highlighted row has been ruled out! (1 source) Allergy to drug (finding) [facility]; [facility] Work Phone: NEGATED: Highlighted row has been ruled out! (1 source) Allergy to substance (finding) 3 [facility]; [facility] Work Phone: NEGATED: Highlighted row has been ruled out! (1 source) Allergy to drug (finding) [facility]; [facility] Work Phone: NEGATED: Highlighted row has been ruled out! (1 source) Allergy to substance (finding) 3 [facility]; [facility] Work Phone: NEGATED: Highlighted row has been ruled out! (1 source) Allergy to drug (finding) [facility]; [facility] Work Phone: NEGATED: Highlighted row has been ruled out! (1 source) Allergy to substance (finding) 3 [facility]; [facility] Work Phone: NEGATED: Highlighted row has been ruled out! (1 source) Allergy to drug (finding) [facility]; [facility] Work Phone: NEGATED: Highlighted row has been ruled out! (1 source) Allergy to substance (finding) [facility]; [facility] Work Phone: NEGATED: Highlighted row has been ruled out! (1 source) Allergy to drug (finding) [facility]; [facility] Work Phone: NEGATED: Highlighted row has been ruled out! (1 source) Allergy to substance (finding) [facility]; [facility] Work Phone: NEGATED: Highlighted row has been ruled out! (1 source) Allergy to drug (finding) [facility]; [facility] Work Phone: NEGATED: Highlighted row has been ruled out! (1 source) Allergy to substance (finding) [facility]; [facility] Work Phone: NEGATED: Highlighted row has been ruled out! (1 source) Allergy to drug (finding) [facility]; [facility] Work Phone: NEGATED: Highlighted row has been ruled out! (1 source) Allergy to substance (finding) 3 [facility]; [facility] Work Phone: NEGATED: Highlighted row has been ruled out! (1 source) Allergy to drug (finding) [facility]; [facility] Work Phone: NEGATED: Highlighted row has been ruled out! (1 source) Allergy to substance (finding) 3 [facility]; [facility] Work Phone: NEGATED: Highlighted row has been ruled out! (1 source) Allergy to drug (finding) [facility]; [facility] Work Phone: NEGATED: Highlighted row has been ruled out! (1 source) Allergy to substance (finding) 3 [facility]; [facility] Work Phone: NEGATED: Highlighted row has been ruled out! (1 source) Allergy to drug (finding) [facility]; [facility] Work Phone: NEGATED: Highlighted row has been ruled out! (1 source) Allergy to substance (finding) [facility]; [facility] Work Phone: NEGATED: Highlighted row has been ruled out! (1 source) Allergy to drug (finding) [facility]; [facility] Work Phone: NEGATED: Highlighted row has been ruled out! (1 source) Allergy to substance (finding) 3 [facility]; [facility] Work Phone: NEGATED: Highlighted row has been ruled out! (1 source) Allergy to drug (finding) [facility]; [facility] Work Phone: NEGATED: Highlighted row has been ruled out! (1 source) Allergy to substance (finding) 3 [facility]; [facility] Work Phone: NEGATED: Highlighted row has been ruled out! (1 source) Allergy to drug (finding) [facility]; [facility] Work Phone: NEGATED: Highlighted row has been ruled out! (1 source) Allergy to substance (finding) 3 [facility]; [facility] Work Phone: NEGATED: Highlighted row has been ruled out! (1 source) Allergy to drug (finding) [facility]; [facility] Work Phone: NEGATED: Highlighted row has been ruled out! (1 source) Allergy to substance (finding) 3 [facility]; [facility] Work Phone: NEGATED: Highlighted row has been ruled out! (1 source) Allergy to drug (finding) [facility]; [facility] Work Phone: NEGATED: Highlighted row has been ruled out! (1 source) Allergy to substance (finding) 3 [facility]; [facility] Work Phone: NEGATED: Highlighted row has been ruled out! (1 source) Allergy to drug (finding) [facility]; [facility] Work Phone: NEGATED: Highlighted row has been ruled out! (1 source) Allergy to substance (finding) [facility]; [facility] Work Phone: NEGATED: Highlighted row has been ruled out! (1 source) Allergy to drug (finding) [facility]; [facility] Work Phone: NEGATED: Highlighted row has been ruled out! (1 source) Allergy to substance (finding) [facility]; [facility] Work Phone: NEGATED: Highlighted row has been ruled out! (1 source) Allergy to drug (finding) [facility]; [facility] Work Phone: NEGATED: Highlighted row has been ruled out! (1 source) Allergy to substance (finding) [facility]; [facility] Work Phone: NEGATED: Highlighted row has been ruled out! (1 source) Allergy to drug (finding) [facility]; [facility] Work Phone: NEGATED: Highlighted row has been ruled out! (1 source) Allergy to substance (finding) [facility]; [facility] Work Phone: NEGATED: Highlighted row has been ruled out! (1 source) Allergy to drug (finding) [facility]; [facility] Work Phone: NEGATED: Highlighted row has been ruled out! (1 source) Allergy to substance (finding) [facility]; [facility] Work Phone: NEGATED: Highlighted row has been ruled out! (1 source) Allergy to drug (finding) [facility]; [facility] Work Phone: NEGATED: Highlighted row has been ruled out! (1 source) Allergy to substance (finding) 3 [facility]; [facility] Work Phone: NEGATED: Highlighted row has been ruled out! (1 source) Allergy to drug (finding) [facility]; [facility] Work Phone: Medications Current Medications Medication Drug Class(es) Dates Sig (Normalized) Sig (Original) ezetimibe 10 mg oral tablet (2 sources) Dietary Cholesterol Absorption Inhibitor Start: 05-08-2024 ezetimibe 10 mg oral tablet Dose : 10 mg = 1 tab(s), Oral, Daily, 0 Refill(s) Start Date: 05/08/24 Status: Ordered levothyroxine sodium 0.088 mg oral tablet (20 sources) l-Thyroxine Start: 05-08-2024 levothyroxine 88 mcg (0.088 mg) oral tablet Dose : 88 mcg = 1 tab(s), Oral, qDayAC, 0 Refill(s) Start Date: 05/08/24 Status: Ordered Start: 06-29-2022 Start: 07-30-2021 Start: 12-30-2020 Start: 08-26-2020 Levo-T 88 MCG Oral Tablet 1 (one) Tablet qd except Wednesday take 1.5 tabs for 0 days Quantity: 108 {Tablet} Refills: 3 Ordered: 26-Aug-2020 Castillo WELLINGTON, Jasper Hurst MD Start : 26-Aug-2020 Active Start: 07-02-2020 take 1 tablet by artur th once daily, then take 1.5 tablets by mouth Levo-T 88 MCG Oral Tablet 1 (one) Tablet qd except Wednesday take 1.5 tabs for 0 days Quantity: 36 {Tablet} Refills: 6 Ordered: 02-Jul-2020 Castillo WELLINGTON, Jasper Hurst MD Start : 02-Jul-2020 Active Start: 01-02-2020 take 1 tablet by artur th once daily, then take 1.5 tablets by mouth Levo-T 88 MCG Oral Tablet 1 (one) Tablet qd except Wednesday take 1.5 tabs for 0 days Quantity: 36 {Tablet} Refills: 6 Ordered: 02-Jan-2020 Jasper Chong MD, MD, Dana M Start : 02-Jan-2020 Active Start: 07-10-2019 take 1 tablet by artur th once daily, then take 1.5 tablets by mouth Levo-T 88 MCG Oral Tablet 1 (one) Tablet qd except Wednesday take 1.5 tabs for 0 days Quantity: 36 {Tablet} Refills: 6 Ordered: 10-Jul-2019 Jasper Chong MD, MD, Dana M Start : 10-Jul-2019 Active Start: 02-21-2019 take 1 tablet by artur th once daily, then take 1.5 tablets by mouth Levo-T 88 MCG Oral Tablet 1 (one) Tablet qd except Wednesday take 1.5 tabs for 0 days Quantity: 36 {Tablet} Refills: 6 Ordered: 21-Feb-2019 Castillo WELLINGTON, Jasper Hurst MD Start : 21-Feb-2019 Active Start: 07-14-2018 take 1 tablet by artur th once daily, then take 1.5 tablets by mouth Levo-T 88 MCG Oral Tablet 1 (one) Tablet qd except Wednesday take 1.5 tabs for 0 days Quantity: 36 {Tablet} Refills: 6 Ordered: 14-Jul-2018 Castillo WELLINGTON, Jasper Hurst MD Start : 14-Jul-2018 Active Start: 06-27-2018 take 1 tablet by artur th once daily, then take 1.5 tablets by mouth Levo-T 88 MCG Oral Tablet 1 (one) Tablet qd except Wednesday take 1.5 tabs for 30 days Quantity: 36 {Tablet} Refills: 6 Ordered: 27-Jun-2018 Castillo WELLINGTON, Jasper Hurst MD Start : 27-Jun-2018 Active Start: 04-29-2018 End: 03-28-2021 Levothyroxine Active 88 MCG PO DAILY March 28, 2021 11:23am Take 1/2 on Sundays Start: 12-09-2017 End: 03-28-2021 Levothyroxine Discontinued P O 36 April 29, 2018 1:00am March 28, 2021 11:24am Multivitamin preparation (2 sources) Start: 05-08-2024 take 1 tablet by mouth once daily Multivitamin Dose = 1 tab(s), Oral, Daily, 0 Refill(s) Start Date: 05/08/24 Status: Ordered Ng-St-Bgua-Fa-Ca Carb-Vit K (Women's Daily Formula) 18 mg iron-400 mcg-500 mg tablet (5 sources) Start: 03-28-2021 take 1 tablet by mouth once daily Pu-Nz-Dpln-Fa-Ca Carb-Vit K (Women's Daily Formula) 18 mg iron-400 mcg-500 mg tablet Active 1 TABLET PO DAILY March 27, 2021 11:00pm Start: 03-28-2021 take 1 tablet by artur th once daily Rs-Qc-Ifzc-Fa-Ca Carb-Vit K (Women's Daily Formula) 18 mg iron-400 mcg-500 mg tablet Active 1 TABLET PO DAILY March 28, 2021 12:00am Probiotic (2 sources) Start: 05-08-2024 Probiotic 0 Re fill(s) Start Date: 05/08/24 Status: Ordered Vitamin D3 (2 sources) Start: 05-08-2024 Vitamin D3 Dos e : 25 mcg = 1 tab(s), Oral, Daily, # 30 tab(s), 0 Refill(s) Start Date: 05/08/24 Status: Ordered Completed/Discontinued Medications Medication Drug Class(es) Dates Sig (Normalized) Sig (Original) acyclovir 800 mg oral tablet (20 sources) Herpesvirus Nucleoside Analog DNA Polymerase Inhibitor, Herpes Simplex Virus Nucleoside Analog DNA Polymerase Inhibitor, Herpes Zoster Virus Nucleoside Analog DNA Polymerase Inhibitor Start: 07-10-2019 Start: 01-24-2018 take 1 tablet by artur th twice daily as needed Acyclovir 800 MG Oral Tablet 1 (one) Tablet bid prn as directed flare up cold sore for 0 days Quantity: 10 {Tablet} Refills: 4 Ordered: 24-Jan-2018 Castillo WELLINGTON, Jasper Chong MD, Jasper Miller Start : 24-Jan-2018 Active amoxicillin 875 mg / clavulanate 125 mg oral tablet (20 sources) Penicillin-class Antibacterial Start: 12-07-2022 End: 12-17-2022 take 1 tablet by mouth every twelve hours Start: 04-29-2018 End: 05-09-2018 take 1 tablet by mouth every twelve hours Amoxicillin-Pot Clavulanate (Augmentin) 875-125 mg tablet Discontinued 1 TABLET PO Q12H 09 04April 29, 2018 1:00am May 09, 2018 1:11am Start: 03-19-2014 End: 07-09-2014 Start: 03-19-2014 End: 07-09-2014 take 1 tablet by mouth twice daily AUGMENTIN, 875-125MG (Oral Tablet) 1 Tablet bid for 0 days Quantity: 20 {Tablet} Refills: 0 Ordered: 09-Jul-2014 EULALIA Fuentes LPN Start : 19-Mar-2014 End : 09-Jul-2014 Inactive calcium ascorbate 500 mg oral tablet (5 sources) Start: 04-29-2018 End: 03-28-2021 take 1 tablet by mouth once daily ascorbate calcium 500 mg tablet Discontinued 500 MG PO DAILY April 29, 2018 1:00am March 28, 2021 11:24am cholecalciferol 0.025 mg oral capsule (20 sources) Vitamin D Start: 04-29-2018 End: 03-28-2021 take 1000 [IU] by mouth once daily Cholecalciferol (Vitamin D3) Discontinued 1000 UNIT PO DAILY April 29, 2018 1:00am March 28, 2021 11:23am Start: 06-18-2017 Start: 06-18-2017 take 1 tablet by mouth once da jing Vitamin D3 Super Strength 2000 UNIT Oral Tablet 1 (one) Tablet Tablet daily for 0 days Quantity: 30 {Tablet} Refills: 3 Ordered: 18-Jun-2017 Jasper Chong MD, MD, Dana M Start : 18-Jun-2017 Active ciprofloxacin 500 mg oral ta blet (20 sources) Quinolone Antimicrobial Start: 03-31-2010 End: 10-30-2010 Start: 03-31-2010 End: 10-30-2010 CIPRO, 500MG (Oral Tablet) 1 Tablet / once for traveler's diarrhea or bid for 3 days UTI for 0 days Quantity: 6 {Tablet} Refills: 0 Ordered: 30-Oct-2010 EULALIA Fuentes LPN Start : 31-Mar-2010 End : 30-Oct-2010 Inactive clotrimazole 10 mg oral loze nge (20 sources) Azole Antifungal Start: 02-21-2020 End: 07-02-2020 ubidecarenone 60 mg oral cap magdaleno (20 sources) Start: 06-18-2017 Start: 06-18-2017 take 1 capsule by [facility] once daily Co Q 10 60 MG Oral Capsule 1 (one) Capsule Capsule qd for 0 days Quantity: 30 {Capsule} Refills: 0 Ordered: 18-Jun-2017 Jasper Chong MD, MD, Dana M Start : 18-Jun-2017 Active desoximetasone 2.5 mg/ml top ical cream (20 sources) Corticosteroid Start: 01-22-2010 End: 03-31-2010 Start: 01-22-2010 End: 03-31-2010 TOPICORT, 0.25% (External Cr eam) 1 Cream bid for 0 days Quantity: 1 {Cream} Refills: 0 Ordered: 31-Mar-2010 EULALIA Fuentes LPN Start : 22-Jan-2010 End : 31-Mar-2010 Inactive docosahexaenoic acid 120 mg / eicosapentaenoic acid 180 mg oral capsule (16 sources) take 2 capsules by mouth in the morning Fish Oil 1000 MG Oral Capsule 2 in am (1000 MG) Active Fish Oils (20 sources) gabapentin 300 mg oral capsule (20 sources) Anti-epileptic Agent Start: 01-27-2021 End: 09-04-2021 Comment on above: thirty ehglsnrj-vjbg-wopfdl-hyalur ac (20 sources) Glucosamine Chondroit-Collagen (7 sources) Glucosamine Chondroit-Collagen Oral Capsule (9 sources) Glucosamine Chondroit-Collagen Oral Capsule in am Active hydroCHLOROthiazide 12.5 mg oral tablet (20 sources) Thiazide Diuretic Start: 01-29-2009 ibuprofen 200 mg oral capsul e (20 sources) Nonsteroidal Anti-inflammatory Drug Start: 05-22-2022 levoFLOXacin 500 mg oral tablet (20 sources) Quinolone Antimicrobial Start: 12-30-2020 End: 01-27-2021 Start: 07-10-2019 End: 01-02-2020 take 1 tablet by mouth once daily Levaquin 500 MG Oral Tablet 1 (one) Tablet daily for 0 days Quantity: 7 {Tablet} Refills: 0 Ordered: 02-Jan-2020 EULALIA Fuentes LPN Start : 10-Jul-2019 End : 02-Jan-2020 Inactive Start: 10-11-2017 End: 06-20-2018 take 1 tablet by mouth once daily Levaquin 500 MG Oral Tablet 1 (one) Tablet daily for 0 days Quantity: 7 {Tablet} Refills: 0 Ordered: 20-Jun-2018 EULALIA Fuentes Start : 11-Oct-2017 End : 20-Jun-2018 Inactive Comment on above: use for travel medroxyPROGESTERone acetate 10 mg oral tablet (20 sources) Progestin Start: 05-31-2006 End: 12-17-2006 methylPREDNISolone 4 mg oral tablet (20 sources) Corticosteroid Start: 12-30-2020 End: 01-27-2021 Start: 12-30-2020 End: 01-27-2021 take 9 tablets by mouth once Medrol 4 MG Oral Tablet T herapy Pack use as directed per instructions in pack for 0 days Quantity: 1 {Package} Refills: 0 Ordered: 27-Jan-2021 EULALIA Fuentes LPN Start : 30-Dec-2020 End : 27-Jan-2021 Inactive Start: 12-30-2020 Medrol 4 MG Or al Tablet Therapy Pack use as directed per instructions in pack for 0 days Quantity: 1 {Package} Refills: 0 Ordered: 30-Dec-2020 Jasper Chong MD, MD, Dana M Start : 30-Dec-2020 Active metoprolol tartrate 50 mg or al tablet (11 sources) beta-Adrenergic Noy Start: 12-17-2022 ofloxacin 3 mg/ml ophthalmic solution (13 sources) Quinolone Antimicrobial Start: 12-07-2022 End: 12-13-2022 oseltamivir 75 mg oral capsu le (20 sources) Neuraminidase Inhibitor Start: 07-23-2017 End: 09-03-2017 predniSONE 10 mg oral tablet (20 sources) Start: 01-22-2010 End: 02-01-2010 Start: 01-22-2010 End: 02-01-2010 take 3 tablets by mouth once daily PREDNISONE, 10MG (Oral Tablet) 3 (three) Tablet daily for 10 days Quantity: 30 {Tablet} Refills: 0 Ordered: 04-Feb-2010 Catarina Treviño CNP Start : 22-Jan-2010 End : 01-Feb-2010 Inactive rosuvastatin calcium 5 mg or al tablet (20 sources) HMG-CoA Reductase Inhibitor Start: 02-19-2023 Start: 12-30-2020 take 5 mg by mouth once daily Rosuvastatin Active 5 MG PO DAILY March 28, 2021 11:23am Start: 10-30-2020 take 1 tablet by artur th once daily Rosuvastatin Calcium 5 MG Oral Tablet 1 (one) Tablet daily for 0 days Quantity: 90 {Tablet} Refills: 3 Ordered: 30-Oct-2020 Jasper Chong MD, MD, Dana M Start : 30-Oct-2020 Active Start: 07-02-2020 take 1 tablet by artur th once daily Crestor 5 MG Oral Tablet 1 (one) Tablet daily for 0 days Quantity: 30 {Tablet} Refills: 6 Ordered: 02-Jul-2020 Jasper Chong MD, MD, Dana M Start : 02-Jul-2020 Active Start: 01-02-2020 take 1 tablet by artur th once daily Crestor 5 MG Oral Tablet 1 (one) Tablet daily for 0 days Quantity: 30 {Tablet} Refills: 6 Ordered: 02-Jan-2020 Jasper Chong MD, MD, Dana M Start : 02-Jan-2020 Active Start: 07-10-2019 take 1 tablet by artur th once daily Crestor 5 MG Oral Tablet 1 (one) Tablet daily for 0 days Quantity: 30 {Tablet} Refills: 6 Ordered: 10-Jul-2019 Jasper Chong MD, MD, Dana M Start : 10-Jul-2019 Active Start: 02-21-2019 take 1 tablet by artur th once daily Crestor 5 MG Oral Tablet 1 (one) Tablet daily for 0 days Quantity: 30 {Tablet} Refills: 6 Ordered: 21-Feb-2019 Jasper Chong MD, MD, Dana M Start : 21-Feb-2019 Active Start: 07-14-2018 take 1 tablet by artur th every week Crestor 5 MG Oral Tablet 1 (one) Tablet 3x weekly for 0 days Quantity: 30 {Tablet} Refills: 6 Ordered: 14-Jul-2018 Jasper Chong MD, MD, Dana M Start : 14-Jul-2018 Active Start: 04-29-2018 End: 03-28-2021 Rosuvastatin Discontinued PO 06 17April 29, 2018 1:00am March 28, 2021 11:24am Start: 04-11-2018 take 1 tablet by artur th every week Crestor 5 MG Oral Tablet 1 (one) Tablet 3x weekly for 0 days Quantity: 30 {Tablet} Refills: 4 Ordered: 11-Apr-2018 Jasper Chong MD, MD, Dana M Start : 11-Apr-2018 Active Start: 12-02-2015 End: 12-02-2015 Start: 12-02-2015 End: 12-02-2015 take 1 tablet by mouth every week CRESTOR, 5MG (Oral Tablet) uad Tablet 3x weekly for 0 days Quantity: 90 {Tablet} Refills: 3 Ordered: 02-Dec-2015 EULALIA Fuentes LPN Start : 02-Dec-2015 End : 02-Dec-2015 Inactive 72 hr scopolamine 0.0139 mg/ hr transdermal system (20 sources) Anticholinergic Start: 03-31-2010 End: 10-30-2010 Start: 03-31-2010 End: 10-30-2010 TRANSDERM-SCOP, 1.5MG (Trans dermal Patch 72 Hour) 1 Patch 72HR apply 24 hours before and change in 72 hours for 0 days Quantity: 2 {Patch_72HR} Refills: 0 Ordered: 30-Oct-2010 EULALIA Fuentes LPN Start : 31-Mar-2010 End : 30-Oct-2010 Inactive triamcinolone acetonide 0.05 5 mg/actuat metered dose nasal spray (20 sources) Corticosteroid Start: 10-30-2014 End: 04-30-2015 Start: 10-30-2014 End: 04-30-2015 NASACORT ALLERGY 24HR, 55MCG /ACT (Nasal Aerosol) 2 (two) Puff Puff daily for 0 days Quantity: 1 {Bottle} Refills: 0 Ordered: 30-Apr-2015 Maria Elena Suarez LPN Start : 30-Oct-2014 End : 30-Apr-2015 Discontinued Start: 10-30-2014 End: 04-30-2015 NASACORT ALLERGY 24HR, 55MCG /ACT (Nasal Aerosol) 2 (two) Puff Puff daily for 0 days Quantity: 1 {Bottle} Refills: 0 Ordered: 30-Apr-2015 Maria Elena Suarez LPN Start : 30-Oct-2014 End : 30-Apr-2015 Discontinued valACYclovir 1000 mg oral ta blet (20 sources) Herpesvirus Nucleoside Analog DNA Polymerase Inhibitor, Herpes Simplex Virus Nucleoside Analog DNA Polymerase Inhibitor, Herpes Zoster Virus Nucleoside Analog DNA Polymerase Inhibitor Start: 07-29-2015 End: 12-02-2015 Problems Active Problems Problem Classification Problem Date Documented Date Episodic/Chronic Administrative/socia l admission (20 sources) Medical examinations/reports status; Translations: [Well woman exam with routine gynecological exam] 06-18-2017 Episodic Comment on above: [facility] 06[facility]06 pap good . mammo colonscopy -. now that 58 had shingles vaccine BD . dental adn eye exam yearly. Hep c screen do next labs [facility] pap goo d . mammo colonoscopy -. now that 58 had shingles vaccine BD . dental and eye exam yearly. Hep c screen do next labs [facility] pap goo d 07-10 last one. mammo colonoscopy -. now that 58 had shingles vaccine BD . dental and eye exam yearly. Hep c screen do next labs [facility] - pap good 07-10 last one. mammo 01-07 colonoscopy -. now that 58 had shingles vaccine BD . dental and eye exam yearly. Hep c screen good - Allergic reactions (20 sources) Contact dermatitis due to plants, except food; Translations: [Disorders of skin induced by physical agents] Resolved: 03-31-2010 06-02-2012 Episodic Disorders of lipid metabolism (20 sources) Hypercholesterolemia; Translations: [Hypercholesterolemia] 06-09-2018 Chronic Comment on above: reveiwed with patien t recent tests reveiwed with patien t recent tests at goal still do not know if has atherosclerosis. will do CCTA if does even mild ...increase statin and add asa reveiwed with patien t recent tests at goal still do not know if has atherosclerosis. will do CCTA if does even mild ...increase statin and add asaCCTA 0 1-19 reveiwed with patien t recent tests LDL going up some. will just try to take crestor everydayCCTA 0 1-19 cholesterol is good. will add back coenzyme q10. TMAO elevated so assure less red meat taking yogurt daily.CCTA 0 1-19 tmao coming down radha t to nonfat yogurt. eating vegetables and watching red meat.CCTA 0 1-19 Fluid and electrolyte disorders (20 sources) Hypernatremia; Translations: [Hyperosmolality and hypernatremia] Resolved: 05-23-2020 07-14-2018 Episodic Genitourinary symptoms and ill-defined conditions (20 sources) Blood in urine; Translations: [Hematuria] 06-09-2018 Episodic Comment on above: worked up in past. 2 010 cytscopy. abe. [facility] 06-05 good Immunizations and screening for infectious disease (20 sources) Need for prophylactic vaccination and inoculation against influenza; Translations: [Encounter for immunization] Resolved: 07-02-2020 11-30-2018 Episodic Inflammation; infection of eye (except that caused by tuberculosis or sexually transmitteddisease) (20 sources) Acute conjunctivitis; Translations: [Conjunctivitis, acute] 12-07-2022 Episodic Joint disorders and dislocations; trauma-related (20 sources) Tear of lateral meniscus of knee; Translations: [Tear of meniscus, lateral] 06-05-2022 Episodic Malaise and fatigue (20 sources) Fatigue; Translations: [Fatigue] Resolved: 06-16-2019 06-09-2018 Episodic Comment on above: increase water intak e Menopausal disorders (20 sources) Menopausal syndrome; Translations: [Menopausal state] Resolved: 01-13-2019 07-14-2018 Chronic Menstrual disorders (20 sources) Irregular periods; Translations: [Irregular menstrual cycle] Resolved: 07-17-2013 05-14-2015 Chronic Mycoses (20 sources) Candidiasis of mouth; Translations: [Thrush] Resolved: 07-02-2020 02-21-2020 Episodic Nonmalignant breast conditions (20 sources) Mastodynia; Translations: [Breast lump] Resolved: 03-15-2023 05-14-2015 Episodic Comment on above: gone Nonspecific chest pain (20 sources) Tight chest; Translations: [Chest pressure] Resolved: 06-18-2017 06-18-2017 Episodic Comment on above: ?anxiety. stress. at ypical but new today will do sttress test talk about if neagtive will start back exercise for stress release and if worsen tasia and see how do Nutritional deficiencies (20 sources) Vitamin D deficiency; Translations: [Vitamin D deficiency] 06-18-2017 Chronic Comment on above: good ercently Other circulatory disease (20 sources) Low blood pressure; Translations: [Hypotension, unspecified] Resolved: 01-29-2009 05-10-2015 Episodic Other circulatory disease (20 sources) Hypotension, unspecified Episodic Other connective tissue disease (20 sources) Swelling of limb; Translations: [Swelling of limb] Resolved: 07-24-2009 06-02-2012 Episodic Comment on above: got last time on sofia ne, will give water pill and use eldon hose Other connective tissue disease (20 sources) Synovial cyst of right popliteal space; Translations: [Watts cyst, right] 08-18-2022 Episodic Other disorders of stomach and duodenum (20 sources) Indigestion; Translations: [Indigestion] Resolved: 01-13-2019 06-18-2017 Episodic Comment on above: wioll pay attetntion to foods eat before ? GB willwatch for pain. not eating gastric irritants. watch milk. Other ear and sense organ disorders (20 sources) Bilateral hearing loss; Translations: [Hearing loss, bilateral] 07-14-2018 Chronic Comment on above: mild high frequency. tested 2017 recheck in another [id number]. noise protection Other ear and sense organ disorders (20 sources) Excessive cerumen in ear canal ; Translations: [Ceruminosis, right] 01-09-2022 Episodic Other ear and sense organ disorders (20 sources) Otalgia, right ear; Translations: [Earache, right] Resolved: 03-15-2023 01-09-2022 Episodic Other endocrine disorders (20 sources) Hypoglycemia; Translations: [Hypoglycemia] Resolved: 07-02-2020 06-18-2017 Chronic Comment on above: doing better with sm all frequent meals and more protein less sugar. Other injuries and conditions due to external causes (20 sources) Motion sickness; Translations: [Motion sickness] Resolved: 01-02-2013 01-02-2013 Episodic Other liver diseases (20 sources) Elevated liver enzymes level; Translations: [Elevated liver enzymes] Resolved: 03-15-2023 12-17-2022 Episodic Other lower respiratory disease (20 sources) Cough; Translations: [Cough] Resolved: 07-02-2020 07-17-2013 Episodic Comment on above: think sinus cold eulalia lcheck for covid has swab otc meds self isolate fromhusband and quaratine for others. Other lower respiratory disease (20 sources) Multiple nodules of lung; Translations: [Lung nodule, multiple] 07-29-2018 Episodic Comment on above: 7- done and due no w 7-20 Other lower respiratory disease (20 sources) Nodule of lung; Translations: [Lung nodule] Resolved: 03-15-2023 12-17-2022 Episodic Other non-traumatic joint disorders (20 sources) Hip pain; Translations: [Hip pain] Resolved: 07-17-2013 07-17-2013 Episodic Other non-traumatic joint disorders (20 sources) Ankle pain; Translations: [Ankle pain, right] Resolved: 01-23-2020 01-13-2019 Episodic Comment on above: along peroneus tendo ns ? foot wear will wear good tennis shoe in house. and if not better back to [place] Other non-traumatic joint disorders (20 sources) Swollen ankle region; Translations: [Left ankle swelling] Resolved: 09-04-2021 06-23-2021 Episodic Other non-traumatic joint disorders (20 sources) Anterior knee pain; Translations: [Knee pain, right anterior] 05-22-2022 Episodic Other screening for suspected conditions (not mental disorders or infectious disease) (20 sources) Viral screening status; Translations: [Nonspecific abnormal results of function study of thyroid] Onset: 04-16-2024 Resolved: 07-02-2020 06-09-2018 Episodic Comment on above: Abnormal TSH Other skin disorders (20 sources) Inflamed seborrheic keratosis; Translations: [Inflamed seborrheic keratosis] Resolved: 09-04-2021 07-02-2020 Episodic Comment on above: on chest 5 mm Other upper respiratory disease (20 sources) Allergic rhinitis; Translations: [Allergic rhinitis] 06-18-2017 Chronic Other upper respiratory disease (20 sources) Pain in throat Episodic Other upper respiratory infections (20 sources) Acute sinusitis; Translations: [Sore throat symptom] Resolved: 07-09-2014 05-07-2015 Episodic Otitis media and related conditions (20 sources) Dysfunction of eustachian tube; Translations: [Eustachian tube dysfunction] 01-09-2022 Episodic Residual codes; unclassified (20 sources) Insomnia; Translations: [Insomnia] 06-18-2017 Episodic Comment on above: use otc benadryl. no t alot caffiene. handout given sleep hygiene get. getup once and able to get back to bed. use otc sleep aide use otc benadryl. no t alot caffiene. handout given sleep hygiene get. getup once and able to get back to bed. use otc sleep aide not to eat few hours before bed Residual codes; unclassified (20 sources) Postmenopausal state; Translations: [Postmenopausal (Renamed from Postmenopausal status)] Resolved: 06-18-2017 06-18-2017 Episodic Residual codes; unclassified (20 sources) Body mass index (BMI) 23.0-23.9, adult; Translations: [Body mass index 20-24 - normal] Resolved: 01-02-2020 06-18-2017 Episodic Residual codes; unclassified (20 sources) Influenza-like symptoms; Translations: [Flu-like symptoms] Resolved: 06-16-2019 07-23-2017 Episodic Residual codes; unclassified (20 sources) Needs influenza immunization; Translations: [Need for prophylactic vaccination and inoculation against influenza (Renamed from Need for immunization against influenza)] Resolved: 06-18-2017 06-18-2017 Episodic Residual codes; unclassified (20 sources) Body Mass Index between 19-24, adult; Translations: [Finding of body mass index] Resolved: 06-18-2017 06-18-2017 Episodic Residual codes; unclassified (20 sources) Requires varicella vaccination; Translations: [Need for zoster vaccination] Resolved: 06-16-2019 01-13-2019 Episodic Residual codes; unclassified (20 sources) Current non-smoker ; Translations: [Current nonsmoker (Renamed from Current non-smoker)] 07-02-2020 Episodic Residual codes; unclassified (20 sources) Influenza vaccination declined; Translations: [Influenza vaccination declined (Renamed from Refused influenza vaccine)] Resolved: 07-02-2020 07-02-2020 Episodic Residual codes; unclassified (20 sources) Memory impairment; Translations: [Memory change] 09-04-2021 Episodic Residual codes; unclassified (20 sources) Non-smoker; Translations: [Current nonsmoker (Renamed from Current non-smoker)] 12-07-2022 Episodic Spondylosis; intervertebral disc disorders; other back problems (20 sources) Low back pain; Translations: [Low back pain] Resolved: 09-04-2021 06-02-2012 Episodic Comment on above: lower back---exercis es Sprains and strains (20 sources) Strain of tendon of medial thigh muscle; Translations: [Groin strain] Resolved: 07-17-2013 07-17-2013 Episodic Syncope (20 sources) Syncope; Translations: [SYNCOPE (Renamed from Episode of syncope)] Resolved: 12-02-2015 12-02-2015 Episodic Comment on above: syncope work up in p rogressoccured at basketball game while sitting in bleachers felt intense abdominal pain then passed out, was told her pulse was low This occured after eating dinner and pizza Thyroid disorders (20 sources) Hypothyroidism; Translations: [Hypothyroidism] 06-18-2017 Chronic Comment on above: tsh good and feels g ood Unclassified (20 sources) Unclassified (20 sources) Irregular Menstraul Cycle (626.4) Unclassified (20 sources) Well Woman Exam (V72.31) (Pap,Mammo,Routine Female) Unclassified (20 sources) Influenza vaccination declined; Translations: [Influenza vaccination declined (Renamed from Refused influenza vaccine)] Resolved: 07-02-2020 06-18-2017 Unclassified (20 sources) Encounter for screening mammogram for breast cancer (Renamed from Encounter for screening mammogram for malignant neoplasm of breast) Unclassified (20 sources) BMI 23.0-23.9, adult; Translations: [Body mass index 20-24 - normal] Resolved: 01-02-2020 01-13-2019 Unclassified (20 sources) Current non-smoker ; Translations: [Current nonsmoker (Renamed from Current non-smoker)] 06-18-2017 Unclassified (20 sources) Breast cancer screening (V76.10) Unclassified (20 sources) Well woman exam with routine gynecological exam Unclassified (20 sources) BMI between 19-24,adult; Translations: [Finding of body mass index] Resolved: 06-18-2017 06-18-2017 Unclassified (20 sources) Oral herpes simplex infection Unclassified (20 sources) Postmenopausal (Renamed from Postmenopausal status) Unclassified (20 sources) Chest pressure Unclassified (20 sources) PHYSICAL EXAM, ROUTINE (V70.0) Unclassified (20 sources) Hearing loss, bilateral Unclassified (20 sources) Lung nodule, multiple Unclassified (20 sources) Ankle pain, right Unclassified (20 sources) BMI 24.0-24.9, adult; Translations: [Body mass index 20-24 - normal] 01-02-2020 Unclassified (20 sources) Encounter for screening for cervical cancer (Renamed from Encounter for screening for malignant neoplasm of cervix) Viral infection (20 sources) Herpesviral gingivostomatitis and pharyngotonsillitis; Translations: [Oral herpes simplex infection] Resolved: 06-16-2019 06-18-2017 Episodic Past or Other Problems Problem Classification Problem Date Documented Date Episodic/Chronic Influenza (16 sources) Influenza Residual codes; unclassified (2 sources) Vaccination required; Translations: [Need for zoster vaccination] Resolved: 06-16-2019 01-13-2019 Episodic Unclassified (20 sources) Unspecified Diagnosis Resolved: 07-14-2018 01-24-2018 Unclassified (20 sources) Contact dermatitis and other eczema due to plants (except food) (692.6) Unclassified (20 sources) Pre-operative examination, unspecified (V72.84) Unclassified (20 sources) Patient encounter status; Translations: [Physical exam, routine] Resolved: 07-02-2020 06-18-2017 Comment on above: mammo in few weeks. bd 8-14. pap 7-13 negative never abnormal pap will do next year. colonscopy 1-13needs tetanus shingles vaccine. she will do tdap a day then end of week get shingles because will not be around immunocomprised father. Unclassified (20 sources) Preprocedural examination done; Translations: [Pre-operative examination] Resolved: 01-02-2013 03-26-2015 Unclassified (20 sources) Screening for human papillomavirus (HPV) (V73.81) Unclassified (20 sources) Flu-like symptoms Unclassified (20 sources) Groin strain (843.9) Unclassified (20 sources) Encounter for hepatitis C virus screening test for high risk patient Unclassified (20 sources) Sinusitis,acute (461.9) Unclassified (20 sources) Menopausal state Unclassified (20 sources) Need for zoster vaccination Unclassified (20 sources) Need for shingles vaccine Unclassified (20 sources) Thrush Unclassified (20 sources) Exposure to SARS virus Unclassified (6 sources) Sciatica of right side Unclassified (1 source) Immunity status testing Unclassified (1 source) Left ankle swelling Viral infection (4 sources) Disease caused by 2019nCoV Results Test Name Value Interpretation Reference Range Facility .Auto Diffon 05-08-2024 Basophil, Absolute 0.1 10 3/mcL Normal 0.0-0.2 [facility] Comment on above: Performed By: #### A SHILA, GFR, ADIFF, ABOGEL, BMP, ALB, CBC, ABSGEL #### [address] [address] Basophils/100 WBC (Bld) 0.9 % Normal 0.0-2.5 [facility] Comment on above: Performed By: #### A SHILA, GFR, ADIFF, ABOGEL, BMP, ALB, CBC, ABSGEL #### [address] [address] Eosinophil, Absolute 0.2 10 3/mcL Normal 0.0-0.7 [facility] Comment on above: Performed By: #### A SHILA, GFR, ADIFF, ABOGEL, BMP, ALB, CBC, ABSGEL #### [address] [address] Eosinophils/100 WBC (Bld) 2.8 % Normal 0.0-7.0 [facility] Comment on above: Performed By: #### A SHILA, GFR, ADIFF, ABOGEL, BMP, ALB, CBC, ABSGEL #### [address] [address] Lymphocyte, Absolute 2.2 10 3/mcL Normal 0.9-4.3 [facility] Comment on above: Performed By: #### A SHILA, GFR, ADIFF, ABOGEL, BMP, ALB, CBC, ABSGEL #### [address] [address] Lymphocytes/100 WBC (Bld) 35.3 % Normal 20.0-40.0 [facility] Comment on above: Performed By: #### A SHILA, GFR, ADIFF, ABOGEL, BMP, ALB, CBC, ABSGEL #### [address] [address] Monocyte, Absolute 0.4 10 3/mcL Normal 0.1-1.4 [facility] Comment on above: Performed By: #### A SHILA, GFR, ADIFF, ABOGEL, BMP, ALB, CBC, ABSGEL #### [address] [address] Monocytes/100 WBC (Bld) 5.8 % Normal 2.0-13.0 [facility] Comment on above: Performed By: #### A SHILA, GFR, ADIFF, ABOGEL, BMP, ALB, CBC, ABSGEL #### [address] [place], [place] [address] Neutrophils/100 WBC (Bld) 55.2 % Normal 50.0-75.0 [facility] Comment on above: Performed By: #### A SHILA, GFR, ADIFF, ABOGEL, BMP, ALB, CBC, ABSGEL #### [address] [address] .GFRon 05-08-2024 GFR 78 ml/min/1.73sqm Normal [facility] Comment on above: Result Comment: GFR Population mean for , Non- Americans Ages 20-29 = 116 mL/min/1.73 sq.m. Ages 30-39 = 107 mL/min/1.73 sq.m. Ages 40-49 = 99 mL/min/1.73 sq.m. Ages 50-59 = 93 mL/min/1.73 sq.m. Ages 60-69 = 85 mL/min/1.73 sq.m. Ages 70+ = 75 mL/min/1.73 sq.m. Chronic Kidney Disease: Less than 60 mL/min/1.73 square meters End Stage Renal Disease: Less than 15 mL/min/1.73 square meters Performed By: #### A SHILA, GFR, ADIFF, ABOGEL, BMP, ALB, CBC, ABSGEL #### [address] [place], [place] [address] GFR Non- 64 ml/min/1.73sqm Normal [facility] Comment on above: Result Comment: GFR Population mean for , Non- Americans Ages 20-29 = 116 mL/min/1.73 sq.m. Ages 30-39 = 107 mL/min/1.73 sq.m. Ages 40-49 = 99 mL/min/1.73 sq.m. Ages 50-59 = 93 mL/min/1.73 sq.m. Ages 60-69 = 85 mL/min/1.73 sq.m. Ages 70+ = 75 mL/min/1.73 sq.m. Chronic Kidney Disease: Less than 60 mL/min/1.73 square meters End Stage Renal Disease: Less than 15 mL/min/1.73 square meters Performed By: #### A SHILA, GFR, ADIFF, ABOGEL, BMP, ALB, CBC, ABSGEL #### [address] [address] .NEUABSon 05-08-2024 Neutrophil, Absolute 3.4 10 3/mcL Normal 2.3-8.1 [facility] Comment on above: Performed By: #### A SHILA, GFR, ADIFF, ABOGEL, BMP, ALB, CBC, ABSGEL #### [address] [address] ABO/Rh (Gel)on 05-08-2024 ABO/Rh Interp Positive Invalid Interpretation Code [facility] Comment on above: Order Comment: SURG MK 06/06 -AC Performed By: #### A SHILA, GFR, ADIFF, ABOGEL, BMP, ALB, CBC, ABSGEL #### [address] [address] ABS (Gel)on 05-08-2024 ABSC Interp (Gel) Negative Normal [facility] Comment on above: Order Comment: SURG MK 06/06 -AC Performed By: #### A SHILA, GFR, ADIFF, ABOGEL, BMP, ALB, CBC, ABSGEL #### [address] [address] ALBon 05-08-2024 Albumin Level 3.6 G/dL Normal 3.4-4.8 [facility] Comment on above: Performed By: #### A SHILA, GFR, ADIFF, ABOGEL, BMP, ALB, CBC, ABSGEL #### [address] [address] BMPon 05-08-2024 BUN/Creatinine Ratio 28 ratio High 7-27 [facility] Comment on above: Performed By: #### A SHILA, GFR, ADIFF, ABOGEL, BMP, ALB, CBC, ABSGEL #### [address] [address] Calcium [Mass/Vol] 9.3 mg/dL Normal 8.4-10.2 [facility] Comment on above: Performed By: #### A SHILA, GFR, ADIFF, ABOGEL, BMP, ALB, CBC, ABSGEL #### [place] [address] Chloride [Moles/Vol] 106 mmol/L Normal 98-107 [facility] Comment on above: Performed By: #### A SHILA, GFR, ADIFF, ABOGEL, BMP, ALB, CBC, ABSGEL #### [place] [address] CO2 [Moles/Vol] 28 mmol/L Normal 23-31 [facility] Comment on above: Performed By: #### A SHILA, GFR, ADIFF, ABOGEL, BMP, ALB, CBC, ABSGEL #### [place] [address] Creatinine [Mass/Vol] 0.87 mg/dL Normal 0.55-1.02 [facility] Comment on above: Result Comment: Test ing performed on Siemens Dimension EXL analyzer using a modified kinetic Davon technique. Performed By: #### A SHILA, GFR, ADIFF, ABOGEL, BMP, ALB, CBC, ABSGEL #### [address] [address] Electrolyte Balance 9.0 mEq/L Normal 4.0-15.0 [facility] Comment on above: Performed By: #### A SHILA, GFR, ADIFF, ABOGEL, BMP, ALB, CBC, ABSGEL #### [place] [address] Glucose [Mass/Vol] 90 mg/dL Normal 83-110 [facility] Comment on above: Performed By: #### A SHILA, GFR, ADIFF, ABOGEL, BMP, ALB, CBC, ABSGEL #### [place] [address] Potassium [Moles/Vol] 4.1 mmol/L Normal 3.5-5.1 [facility] Comment on above: Performed By: #### A SHILA, GFR, ADIFF, ABOGEL, BMP, ALB, CBC, ABSGEL #### [address] [address] Sodium [Moles/Vol] 143 mmol/L Normal 136-145 [facility] Comment on above: Performed By: #### A SHILA, GFR, ADIFF, ABOGEL, BMP, ALB, CBC, ABSGEL #### [address] [address] Urea nitrogen [Mass/Vol] 24 mg/dL High - [facility] Comment on above: Performed By: #### A SHILA, GFR, ADIFF, ABOGEL, BMP, ALB, CBC, ABSGEL #### [address] [address] CBCon 05-08-2024 Erythrocyte distribution width (RBC) [Ratio] 13.1 % Normal 11.5-15.5 [facility] Comment on above: Order Comment: Pre-A dmission Testing Performed By: #### A SHILA, GFR, ADIFF, ABOGEL, BMP, ALB, CBC, ABSGEL #### [address] [address] Hematocrit (Bld) [Volume fraction] 38.3 % Normal 34.0-46.0 [facility] Comment on above: Order Comment: Pre-A dmission Testing Performed By: #### A SHILA, GFR, ADIFF, ABOGEL, BMP, ALB, CBC, ABSGEL #### [address] [address] Hgb 12.8 G/dL Normal 12.0-16.0 [facility] Comment on above: Order Comment: Pre-A dmission Testing Performed By: #### A SHILA, GFR, ADIFF, ABOGEL, BMP, ALB, CBC, ABSGEL #### [address] [address] MCH (RBC) [Entitic mass] 31.3 pg Normal 27.0-33.0 [facility] Comment on above: Order Comment: Pre-A dmission Testing Performed By: #### A SHILA, GFR, ADIFF, ABOGEL, BMP, ALB, CBC, ABSGEL #### [address] [address] MCHC 33.5 G/dL Normal 32.0-36.0 [facility] Comment on above: Order Comment: Pre-A dmission Testing Performed By: #### A SHILA, GFR, ADIFF, ABOGEL, BMP, ALB, CBC, ABSGEL #### [address] [address] MCV (RBC) [Entitic vol] 93.5 fL Normal 80.0-99.0 [facility] Comment on above: Order Comment: Pre-A dmission Testing Performed By: #### A SHILA, GFR, ADIFF, ABOGEL, BMP, ALB, CBC, ABSGEL #### [address] [address] Platelet 297 10 3/mcL Normal 150-450 [facility] Comment on above: Order Comment: Pre-A dmission Testing Performed By: #### A SHILA, GFR, ADIFF, ABOGEL, BMP, ALB, CBC, ABSGEL #### [address] [address] Platelet mean volume (Bld) [Entitic vol] 7.0 fL Normal 6.6-10.5 [facility] Comment on above: Order Comment: Pre-A dmission Testing Performed By: #### A SHILA, GFR, ADIFF, ABOGEL, BMP, ALB, CBC, ABSGEL #### [address] [address] RBC 4.10 10 6/mcL Normal 4.10-5.30 [facility] Comment on above: Order Comment: Pre-A dmission Testing Performed By: #### A SHILA, GFR, ADIFF, ABOGEL, BMP, ALB, CBC, ABSGEL #### [address] [address] WBC 6.1 10 3/mcL Normal 4.5-10.8 [facility] Comment on above: Order Comment: Pre-A dmission Testing Performed By: #### A SHILA, GFR, ADIFF, ABOGEL, BMP, ALB, CBC, ABSGEL #### [facility] [address] [place], [place] [address] CT KNEE W/O CONTRAST RIGHTon 05-08-2024 CT KNEE W/O CONTRAST RIGHT ORIGINAL EXAMINATION: CT OF THE RIGHT KNEE WITHOUT CONTRAST 05/08/2024 3:16 pm TECHNIQUE: CT of the right knee was performed without the administration of intravenous contrast. Multiplanar reformatted images are provided for review. Automated exposure control, iterative reconstruction, and/or weight based adjustment of the mA/kV was utilized to reduce the radiation dose to as low as reasonably achievable. MA KO protocol was performed with axial images through the right hip and right ankle. COMPARISON: None. HISTORY ORDERING SYSTEM PROVIDED HISTORY: Reason for Exam: Unilateral primary osteoarthritis, right knee FINDINGS: There is no acute fracture or dislocation. There is no suspicious lytic or blastic osseous lesion. There is no aggressive periosteal reaction. Limited evaluation of the partially visualized pelvis due to lack of contrast. Stool and air in the region of the rectal vault. Severe femoroacetabular joint degenerative changes most pronounced in the anterior joint space with subchondral cysts in the acetabulum. Multifocal pelvic enthesopathy. Pubic symphysis is aligned. Small knee joint effusion. Small popliteal Watts's cyst. Tricompartmental osteoarthritis severe in the medial compartment with [id number], subchondral sclerosis and marginal osteophytes. Irregular depression of the subchondral surface involving the posteromedial femoral condyle measuring 9 mm suspicious for subchondral fracturing. Quadriceps enthesopathy. There is no evidence of solid or cystic soft tissue mass. IMPRESSION: Tricompartmental osteoarthritis severe in the medial compartment in patient presenting for preop planning. There is irregular depression of the subchondral surface involving the posteromedial femoral condyle measuring 9 mm suspicious for subchondral fracturing. Small knee joint effusion. Small popliteal Watts's cyst. Additional incidental findings above. Interpreted by: Carina Smith Preliminary Report By: Carina Smith Electronically signed By Carina Smith Dictated Date: 05/08/2024 4:15:37 PM Prelim Date: 05/08/2024 4:34:02 PM Sign Date: 05/08/2024 4:34:02 PM Ordering Provider: ANTONELLA Jamison [facility] LABORATORYOrdered By: Josefina Lobo on 05-08-2024 ABO and Rh group Nom (Bld) Blood group A Rh(D) positive Invalid Interpretation Code AO BB Auto SS Blood group antibody screen Ql Negative ABSC (05/08/24 1:51 PM) Normal AO BB Auto SS LABORATORYOrdered By: SYSTEM SYSTEM on 05-08-2024 Albumin BCP dye [Mass/Vol] 3.6 G/dL Normal 3.4 - 4.8 G/dL AO ADM SS Basophils (Bld) [#/Vol] 0.1 103/mcL Normal 0.0 - 0.2 10^3/mcL AO Workflow SS Basophils/100 WBC (Bld) 0.9 % Normal 0.0 - 2.5 % AO Workflow SS Calcium [Mass/Vol] 9.3 mg/dL Normal 8.4 - 10. 2 mg/dL AO ADM SS Chloride [Moles/Vol] 106 mmol/L Normal 98 - 107 mmol/L AO ADM SS CO2 [Moles/Vol] 28 mmol/L Normal 23 - 31 mmol/L AO ADM SS Creatinine [Mass/Vol] 0.87 mg/dL Normal 0.55 - 1.02 mg/dL AO ADM SS Comment on above: Interpretive Data: T esting performed on Siemens Dimension EXL analyzer using a modified kinetic Davon technique. Electrolyte Balance 9.0 mEq/L Normal 4.0 - 15 .0 mEq/L AO ADM SS Eosinophil, Absolute 0.2 103/mcL Normal 0.0 - 0.7 10^3/mcL AO Workflow SS Eosinophils/100 WBC (Bld) 2.8 % Normal 0.0 - 7.0 % AO Workflow SS Erythrocyte distribution width (RBC) [Ratio] 13.1 % Normal 11.5 - 15.5 % AO Workflow SS GFR/1.73 sq M.predicted among blacks MDRD (S/P/Bld) [Vol rate/Area] 78 ml/min/1.73sqm Invalid Interpretation Code AO Chemistry S Comment on above: Interpretive Data: GFR Population mean for , Non- Americans Ages 20-29 = 116 mL/min/1.73 sq.m. Ages 30-39 = 107 mL/min/1.73 sq.m. Ages 40-49 = 99 mL/min/1.73 sq.m. Ages 50-59 = 93 mL/min/1.73 sq.m. Ages 60-69 = 85 mL/min/1.73 sq.m. Ages 70+ = 75 mL/min/1.73 sq.m. Chronic Kidney Disease: Less than 60 mL/min/1.73 square meters End Stage Renal Disease: Less than 15 mL/min/1.73 square meters GFR/1.73 sq M.predicted among non-blacks MDRD (S/P/Bld) [Vol rate/Area] 64 ml/min/1.73sqm Invalid Interpretation Code AO Chemistry S Comment on above: Interpretive Data: GFR Population mean for , Non- Americans Ages 20-29 = 116 mL/min/1.73 sq.m. Ages 30-39 = 107 mL/min/1.73 sq.m. Ages 40-49 = 99 mL/min/1.73 sq.m. Ages 50-59 = 93 mL/min/1.73 sq.m. Ages 60-69 = 85 mL/min/1.73 sq.m. Ages 70+ = 75 mL/min/1.73 sq.m. Chronic Kidney Disease: Less than 60 mL/min/1.73 square meters End Stage Renal Disease: Less than 15 mL/min/1.73 square meters Glucose [Mass/Vol] 90 mg/dL Normal 83 - 110 mg/dL AO ADM SS Hematocrit (Bld) [Volume fraction] 38.3 % Normal 34.0 - 46.0 % AO Workflow SS Hemoglobin (Bld) [Mass/Vol] 12.8 G/dL Normal 12.0 - 16.0 G/dL AO Workflow SS Lymphocytes (Bld) [#/Vol] 2.2 103/mcL Normal 0.9 - 4.3 10^3/mcL AO Workflow SS Lymphocytes/100 WBC (Bld) 35.3 % Normal 20.0 - 40.0 % AO Workflow SS MCH (RBC) [Entitic mass] 31.3 pg Normal 27.0 - 33.0 pg AO Workflow SS MCHC 33.5 G/dL Normal 32.0 - 36.0 G/dL AO Workflow SS MCV (RBC) [Entitic vol] 93.5 fL Normal 80.0 - 99.0 fL AO Workflow SS Monocytes (Bld) [#/Vol] 0.4 103/mcL Normal 0.1 - 1.4 10^3/mcL AO Workflow SS Monocytes/100 WBC (Bld) 5.8 % Normal 2.0 - 13.0 % AO Workflow SS Neutrophils (Bld) [#/Vol] 3.4 103/mcL Normal 2.3 - 8.1 10^3/mcL AO Workflow SS Neutrophils/100 WBC (Bld) 55.2 % Normal 50.0 - 75.0 % AO Workflow SS Platelet mean volume (Bld) [Entitic vol] 7.0 fL Normal 6.6 - 10.5 fL AO Workflow SS Platelets (Bld) [#/Vol] 297 103/mcL Normal 150 - 450 10^3/mcL AO Workflow SS Potassium [Moles/Vol] 4.1 mmol/L Normal 3.5 - 5.1 mmol/L AO ADM SS RBC (Bld) [#/Vol] 4.10 106/mcL Normal 4.10 - 5.30 10^6/mcL AO Workflow SS Sodium [Moles/Vol] 143 mmol/L Normal 136 - 145 mmol/L AO ADM SS Urea nitrogen [Mass/Vol] 24 mg/dL High 7 - 18 mg/dL AO ADM SS Urea nitrogen/Creatinine [Mass ratio] 28 ratio High 7 - 27 ratio AO ADM SS WBC (Bld) [#/Vol] 6.1 103/mcL Normal 4.5 - 10.8 10^3/mcL AO Workflow SS LABORATORYOrdered By: Loki Sahni on 05-08-2024 MRSA (PCR) Not Detected 1 (05/08/24 1:51 PM) Normal Not Detected Auto Viro/Sero SS Comment on above: Result Comment: Note s [id number] MRSA PCR Int MRSA DNA not detecte d by Real-Time Polymerase Chain Reaction (PCR). A negative result may be due to intermittent colonization. Colonization may vary depending on patient treatment, patient status, or exposure to high-risk environments.As with all PCR based in vitro diagnostic tests, extremely low levels of target below the limit of detection of the assay may be detected, but results may not be reproducible. Invalid Interpretation Code Auto Viro/Sero SS MRSAPCRon 05-08-2024 MRSA (PCR) Not detected Normal Not Detected [facility] Comment on above: Result Comment: [place] [id number] Performed By: #### M RSAPCR #### [facility] [address] [place] [id number] MRSA PCR Int Normal [facility] Comment on above: Result Comment: MRSA DNA not detected by Real-Time Polymerase Chain Reaction (PCR). A negative result may be due to intermittent colonization. Colonization may vary depending on patient treatment, patient status, or exposure to high-risk environments. As with all PCR based in vitro diagnostic tests, extremely low levels of target below the limit of detection of the assay may be detected, but results may not be reproducible. See Below Performed By: #### M RSAPCR #### [facility] [address] [place] [id number] SCRN MAMM (CAD)W/MALVIN BILATo n 03-27-2024 SCRN MAMM (CAD)W/MALVIN BILAT [facility] Imaging Services [address] [place] [id number] SCRN MAMM (CAD)W/MALVIN BILAT MR#: [id number] Acct: [id number] Name: SHIRA OROZCO Rep #: [id number] : 1955 F 68 From: Raman peck MD PCP: Dr. Jasper Chong MD Status: REG [facility] Study: SCRN MAMM (CAD)W/MALVIN BILAT Date of Exam: 01/11 Exam# [id number] Ordering Dr: Jasper Chong MD [id number] MAMMOGRAPHY - BILATERAL SCREENING REASON FOR EXAM: Female, 68 years old. Routine annual screening examination. PERTINENT HISTORY: Aunts with breast cancer. TECHNIQUE: Digital bilateral breast malvin (3D mammographic acquisition) in the CC and MLO projections. 2-D mediolateral oblique (MLO) and craniocaudad (CC) views of both breasts were obtained. CAD: Full Field Digital Mammography with Computer Added Detection was performed. COMPARISON: Comparison is made with prior study March 22, 2023 and March 17, 2022. FINDINGS: Breast Composition: The breasts are heterogeneously dense, which may obscure small masses. There are no dominant masses or suspicious calcifications. Stable scattered bilateral macrocalcifications. No other significant abnormalities are identified. There has been no significant change since the prior study. BI/SCRN MAMM (CAD)W/MALVIN BILAT IMPRESSION: Stable bilateral screening mammogram. Yearly follow-up mammogram recommended. (A) ASSESSMENT CATEGORY: BIRADS Category 2: Benign. A letter regarding these results will be sent to the patient by the facility within 30 days. Approximately 10% of breast cancers are not detected by mammography. A normal mammogram should not delay biopsy of a clinically suspicious abnormality. [id number] Electronically Signed: Raman Peraza MD at 11:06 EDT , CC: Dr. Jasper Chong MD [employer]: Signed Normal [facility] HEPATIC FUNCTION PANEL ([phone] [id number])Ordered By: Film Waxer on 03-08-2023 Albumin [Mass/Vol] 4.5 g/dL Normal 3.9-4.9 [facility]; [facility] Work Phone: ALP [Catalytic activity/Vol] 77 U/L Normal 44-121 [facility]; [facility] Work Phone: ALT [Catalytic activity/Vol] 18 U/L Normal 0-32 [facility]; [facility] Work Phone: AST [Catalytic activity/Vol] 24 U/L Normal 0-40 [facility]; [facility] Work Phone: Bilirubin [Mass/Vol] 0.4 mg/dL Normal 0.0-1.2 [facility]; [facility] Work Phone: Bilirubin.direct [Mass/Vol] 0.12 mg/dL Normal 0.00-0.40 [facility]; [facility] Work Phone: Protein [Mass/Vol] 6.5 g/dL Normal 6.0-8.5 [facility]; [facility] Work Phone: LIPID PANEL ([id number])Ordered B y: Film Waxer on 03-08-2023 Cholesterol [Mass/Vol] 200 mg/dL Abnormal 100-199 [facility]; [facility] Work Phone: Cholesterol in HDL [Mass/Vol] 77 mg/dL Normal [facility]; [facility] Work Phone: Triglyceride [Mass/Vol] 50 mg/dL Normal 0-149 [facility]; [facility] Work Phone: LIPID PANEL ([phone]) 9 mg/dL Normal 5-40 [facility]; [facility] Work Phone: LIPID PANEL ([phone]) 114 mg/dL Abnormal 0-99 [facility]; [facility] Work Phone: LIPID PANEL ([phone]) 1.5 {ratio} Normal 0.0-3.2 [facility]; [facility] Work Phone: Absolute lymphocyte countOrd ered By: Jose Guadalupe Rudd on 10-07-2022 Lymphocytes Auto (Unsp spec) [#/Vol] 2.63 10*3/uL 0.83-4.51 [facility] Basophil percentageOrdered B y: Jose Guadalupe Rudd on 10-07-2022 Basophils/100 WBC (Bld) 0.8 % 0-1 [facility] Chloride [Moles/Vol] 106 mmol/L 98-107 [facility] Eosinophils/100 WBC (Bld) 3.0 % 0-5 [facility] Glucose [Mass/Vol] 83 mg/dL 74-106 [facility] Neutrophils (Bld) [#/Vol] 4.3 10*3/uL 2.0-7.7 [facility] Neutrophils/100 WBC (Bld) 55.4 % 47-70 [facility] Potassium [Moles/Vol] 4.4 mmol/L 3.5-5.1 [facility] Sodium [Moles/Vol] 137 mmol/L 136-145 [facility] WBC (Bld) [#/Vol] 7.7 10*3/uL 4.4-11.0 [facility] Blood erythrocytes count (nu mber/volume)Ordered By: Jose Guadalupe Rudd on 10-07-2022 RBC (Bld) [#/Vol] 4.52 10*6/uL 4.2-5.4 [facility] Blood hemoglobin measurement (mass/volume)Ordered By: Jose Guadalupe Rudd on 10-07-2022 Hemoglobin (Bld) [Mass/Vol] 14.0 g/dL 12.0-15.0 [facility] Blood lymphocytes/100 leukoc ytesOrdered By: Jose Guadalupe Rudd on 10-07-2022 Lymphocytes/100 WBC (Bld) 34.3 % 19-41 [facility] Blood monocytes/100 leukocyt esOrdered By: Jose Guadalupe Rudd on 10-07-2022 Monocytes/100 WBC (Bld) 6.0 % 0-10 [facility] Blood platelet mean volumeOr dered By: Jose Guadalupe Rudd on 10-07-2022 Platelet mean volume (Bld) [Entitic vol] 8.7 fL 6.2-12.0 [facility] Determination of erythrocyte mean corpuscular volume (MCV)Ordered By: Jose Guadalupe Rudd on 10-07-2022 MCV (RBC) [Entitic vol] 93.6 fL 81-99 [facility] Hematocrit Auto (Bld) [Volum e fraction]Ordered By: Jose Guadalupe Rudd on 10-07-2022 Hematocrit (Bld) [Volume fraction] 42.3 % 37-47 [facility] Laboratory - Chemistry and C hemistry - challengeOrdered By: Jose Guadalupe Rudd on 10-07-2022 CO2 [Moles/Vol] 29.0 mmol/L 21.0-32.0 [facility] Urea nitrogen/Creatinine [Mass ratio] 24.5 mg/mg 10-20 [facility] Laboratory - Hematology and Cell countsOrdered By: Jose Guadalupe Rudd on 10-07-2022 Erythrocyte distribution width (RBC) [Entitic vol] 45.1 fL 35.1-43.9 [facility] Erythrocyte distribution width (RBC) [Ratio] 13.0 % 11.6-14.6 [facility] Immature granulocytes/100 WBC (Bld) 0.500 % 0.0-0.9 [facility] Comment on above: IG% - Immature Granu locytes (promyelocytes, myelocytes and metamyelocytes) > 1% indicates that a LEFT SHIFT is Present. MCH (RBC) [Entitic mass] 31.0 pg 27.0-32.0 [facility] Nucleated RBC/100 WBC (Bld) [Ratio] 0 % 0-5 [facility] MCHC Auto (RBC) [Mass/Vol]Or dered By: Jose Guadalupe Rudd on 10-07-2022 MCHC (RBC) [Mass/Vol] 33.1 g/dL 32-36 [facility] No Panel InformationOrdered By: Jose Guadalupe Rudd on 10-07-2022 Estimated GFR (MDRD) Amer 66 mL/min >60 [facility] Comment on above: GFR Calc Estimated GFR (MDRD) Non-Af Amer 55 mL/min >60 [facility] Comment on above: Non- GFR Calc Platelets bldOrdered By: Jose Guadalupe Rudd on 10-07-2022 Platelets (Bld) [#/Vol] 268 10*3/uL 150-450 [facility] Serum or plasma calcium brea urement (mass/volume)Ordered By: Jose Guadalupe Rudd on 10-07-2022 Calcium [Mass/Vol] 9.0 mg/dL 8.5-10.1 [facility] Serum or plasma creatinine m easurement (mass/volume)Ordered By: Jose Guadalupe Rudd on 10-07-2022 Creatinine [Mass/Vol] 1.06 mg/dL 0.55-1.02 [facility] Comment on above: The validity of the calculated GFR & GFRAA in patients over 70 years has not been determined. Clinical correlation is essential. Serum or plasma urea nitroge n measurement (mass/volume)Ordered By: Jose Guadalupe Rudd on 10-07-2022 Urea nitrogen [Mass/Vol] 26 mg/dL 7-18 [facility] Thin prep Papanicolaou smear with manual screeningOrdered By: Jose Guadalupe Rudd on 10-07-2022 Thin prep Papanicolaou smear with manual screening 2 5-15 [facility] Methymalonic Acid, Serum ([phone])Ordered By: Film Waxer on 09-04-2021 Methylmalonate [Moles/Vol] 193 nmol/L Normal 0-378 [facility]; [facility] Work Phone: VITAMIN B12 AND FOLATES ([phone])Ordered By: Film Waxer on 09-04-2021 Cobalamin (Vitamin B12) [Mass/Vol] 1020 pg/mL Normal 232-1245 [facility]; [facility] Work Phone: Folate [Mass/Vol] ng/mL Normal [facility]; [facility] Work Phone: CBC WITH MANUAL DIFF ([id number]) Ordered By: Film Waxer on 06-23-2021 Basophils (Bld) [#/Vol] 0.1 10*3/uL Normal 0.0-0.2 [facility]; [facility] Work Phone: Basophils/100 WBC (Bld) 1 % Normal [facility]; [facility] Work Phone: Eosinophils (Bld) [#/Vol] 0.1 10*3/uL Normal 0.0-0.4 [facility]; [facility] Work Phone: Eosinophils/100 WBC (Bld) 3 % Normal [facility]; [facility] Work Phone: Erythrocyte distribution width (RBC) [Ratio] 12.3 % Normal 11.7-15.4 [facility]; [facility] Work Phone: Hematocrit (Bld) [Volume fraction] 41.8 % Normal 34.0-46.6 [facility]; [facility] Work Phone: Hemoglobin (Bld) [Mass/Vol] 14.2 g/dL Normal 11.1-15.9 [facility]; [facility] Work Phone: Immature granulocytes (Bld) [#/Vol] 0.0 10*3/uL Normal 0.0-0.1 [facility]; [facility] Work Phone: Immature granulocytes/100 WBC (Bld) 0 % Normal [facility]; [facility] Work Phone: Lymphocytes (Bld) [#/Vol] 2.0 10*3/uL Normal 0.7-3.1 [facility]; [facility] Work Phone: Lymphocytes/100 WBC (Bld) 40 % Normal [facility]; [facility] Work Phone: MCH (RBC) [Entitic mass] 31.2 pg Normal 26.6-33.0 [facility]; [facility] Work Phone: MCHC (RBC) [Mass/Vol] 34.0 g/dL Normal 31.5-35.7 [facility]; [facility] Work Phone: MCV (RBC) [Entitic vol] 92 fL Normal 79-97 [facility]; [facility] Work Phone: Monocytes (Bld) [#/Vol] 0.4 10*3/uL Normal 0.1-0.9 [facility]; [facility] Work Phone: Monocytes/100 WBC (Bld) 7 % Normal [facility]; [facility] Work Phone: Neutrophils (Bld) [#/Vol] 2.5 10*3/uL Normal 1.4-7.0 [facility]; [facility] Work Phone: Neutrophils/100 WBC (Bld) 49 % Normal [facility]; [facility] Work Phone: Platelets (Bld) [#/Vol] 270 10*3/uL Normal 150-450 [facility]; [facility] Work Phone: RBC (Bld) [#/Vol] 4.55 10*6/uL Normal 3.77-5.28 [facility]pr [facility]; [facility] Work Phone: WBC (Bld) [#/Vol] 5.1 10*3/uL Normal 3.4-10.8 Compre [facility]; [facility] Work Phone: Metabolic Panel, [facility] [place] ([id number])Ordered By: Film Waxer on 06-23-2021 Albumin [Mass/Vol] 4.5 g/dL Normal 3.8-4.8 [facility]; [facility] Work Phone: Albumin/Globulin [Mass ratio] 2.0 {ratio} Normal 1.2-2.2 [facility]; [facility] Work Phone: ALP [Catalytic activity/Vol] 77 U/L Normal 44-121 [facility]; [facility] Work Phone: ALT [Catalytic activity/Vol] 17 U/L Normal 0-32 [facility]; [facility] Work Phone: AST [Catalytic activity/Vol] 22 U/L Normal 0-40 [facility]; [facility] Work Phone: Bilirubin [Mass/Vol] 0.6 mg/dL Normal 0.0-1.2 [facility]; [facility] Work Phone: Calcium [Mass/Vol] 9.4 mg/dL Normal 8.7-10.3 [facility]; [facility] Work Phone: Chloride [Moles/Vol] 105 mmol/L Normal 96-106 [facility]; [facility] Work Phone: CO2 [Moles/Vol] 25 mmol/L Normal 20-29 [facility]; [facility] Work Phone: Creatinine [Mass/Vol] 0.99 mg/dL Normal 0.57-1.00 [facility]; [facility] Work Phone: GFR/1.73 sq M.predicted among blacks CKD-EPI (S/P/Bld) [Vol rate/Area] 68 mL/min/1.73 Normal [facility]; [facility] Work Phone: GFR/1.73 sq M.predicted among non-blacks CKD-EPI (S/P/Bld) [Vol rate/Area] 59 mL/min/1.73 Abnormal [facility]; [facility] Work Phone: Globulin (S) [Mass/Vol] 2.2 g/dL Normal 1.5-4.5 [facility]; [facility] Work Phone: Glucose [Mass/Vol] 85 mg/dL Normal 65-99 [facility]; [facility] Work Phone: Potassium [Moles/Vol] 3.9 mmol/L Normal 3.5-5.2 [facility]; [facility] Work Phone: Protein [Mass/Vol] 6.7 g/dL Normal 6.0-8.5 [facility]; [facility] Work Phone: Sodium [Moles/Vol] 143 mmol/L Normal 134-144 [facility]; [facility] Work Phone: Urea nitrogen [Mass/Vol] 16 mg/dL Normal 8-27 [facility]; [facility] Work Phone: Urea nitrogen/Creatinine [Mass ratio] 16 mg/mg Normal 12-28 [facility]; [facility] Work Phone: NMR Profile ([id number])Ordered B y: Film Waxer on 06-23-2021 Lipoprotein.alpha [Moles/Vol] 43.5 umol/L Normal [facility]; [facility] Work Phone: Lipoprotein.beta.mccormick bparticle [Entitic length] 21.2 nm Normal [facility]; [facility] Work Phone: Lipoprotein.beta.mccormick bparticle [Moles/Vol] 984 nmol/L Normal [facility]; [facility] Work Phone: Lipoprotein.beta.mccormick bparticle.small [Moles/Vol] 163 nmol/L Normal [facility]; [facility] Work Phone: NMR Profile ([id number]) 108 mg/dL Abnormal 0-99 [facility]; [facility] Work Phone: NMR Profile ([id number]) 91 mg/dL Normal [facility]; [facility] Work Phone: NMR Profile ([id number]) 54 mg/dL Normal 0-149 [facility] ehensive Internal Medicine; [facility] Work Phone: NMR Profile ([id number]) 209 mg/dL Abnormal 100-199 [facility] Work Phone: SARS-CoV-2 Semi-Quantitative Total Antibody, Pj ([id number])Ordered By: Film Waxer on 06-23-2021 SARS-CoV-2 Semi-Quantitative Total Antibody, Pj ([id number]) >2500.0 Normal [facility]; [facility] Work Phone: SARS-CoV-2 Semi-Quantitative Total Antibody, Pj ([id number]) Positive Normal [facility]; [facility] Work Phone: URINALYSIS ([id number])Ordered By : Film Waxer on 06-23-2021 Appearance (U) Clear Normal [facility]; [facility] Work Phone: Bilirubin Ql (U) Negative Normal Comprehe nsive [facility]; [facility] Work Phone: Color (U) Yellow Normal [facility]; [facility] Work Phone: Glucose Ql (U) Negative Normal [facility]prehens [facility]; [facility] Work Phone: Hemoglobin Ql (U) 2+ Abnormal Com[facility]; [facility] Work Phone: Ketones Ql (U) Negative Normal [facility]; [facility] Work Phone: Leukocyte esterase Test strip Ql (U) Trace Abnormal [facility]; [facility] Work Phone: Microscopic observation LM Nom (Urine sed) See below: Normal [facility]; [facility] Work Phone: Nitrite Ql (U) Negative Normal Comprehens [facility]; [facility] [facility] Work Phone: pH (U) 6.5 [pH] Normal 5.0-7.5 [facility]; [facility] Work Phone: Protein Ql (U) Negative Normal Comprehens [facility]; [facility] Work Phone: Specific gravity (U) [Rel density] 1.008 1 Normal 1.005-1.03 0 [facility]; [facility] Work Phone: Urobilinogen (U) [Mass/Vol] 0.2 mg/dL Normal 0.2-1.0 [facility]; [facility] Work Phone: Homocysteine, Plasma (42591) Ordered By: Film Waxer on 12-30-2020 Homocysteine [Moles/Vol] 8.3 umol/L Normal 0.0-17.2 [facility]; [facility] Work Phone: Comment on above: PATIENT NOT FASTINGP ERFORMED BY: CB [facility] Xuvtae[address] SiTimeDublin [place] [id number] HEPATIC FUNCTION PANEL (8007 6)Ordered By: Film Waxer on 12-19-2020 Albumin [Mass/Vol] 4.5 g/dL Normal 3.8-4.8 [facility]; [facility] Work Phone: Comment on above: Eulalia needs to dr geri davis; PATIENT WAS FASTINGPERFORMED BY: CB [facility] Ihgevl2127 [address]le RoadDublin [place] [id number]; fu 7-12 db ALP [Catalytic activity/Vol] 86 U/L Normal 48-121 [facility]; [facility] Work Phone: Comment on above: Eulalia needs to dr geri davis; PATIENT WAS FASTINGPERFORMED BY: CB [facility] Pkrasb3250 [address]le RoadDublin [place] [id number]; fu 7-12 db ALT [Catalytic activity/Vol] 19 U/L Normal 0-32 [facility]; [facility] Work Phone: Comment on above: Eulalia needs to dr geri davis; PATIENT WAS FASTINGPERFORMED BY: CB [facility] Hggapt5654 [address]le RoadDuin [place] [id number]; fu 7-12 db AST [Catalytic activity/Vol] 19 U/L Normal 0-40 [facility]; [facility] Work Phone: Comment on above: Eulalia needs to dr geri davis; PATIENT WAS FASTINGPERFORMED BY: CB [facility] Itkfxb4495 [address] RoadDublin [place] [id number]; fu 7-12 db Bilirubin [Mass/Vol] 0.6 mg/dL Normal 0.0-1.2 [facility]; [facility] Work Phone: Comment on above: Eulalia needs to dr geri davis; PATIENT WAS FASTINGPERFORMED BY: CB [facility] Juseul9585 [address]le RoadDublin [place] [id number]; fu 7-12 db Bilirubin.direct [Mass/Vol] 0.17 mg/dL Normal 0.00-0.40 [facility]; [facility] Work Phone: Comment on above: Eulalia needs to dr geri davis; PATIENT WAS FASTINGPERFORMED BY: CB [facility] Mzmtqg0866 [address] RoadDublin [place] [id number]; fu 7-12 db Protein [Mass/Vol] 6.8 g/dL Normal 6.0-8.5 [facility]; [facility] Work Phone: Comment on above: Eulalia needs to dr geri davis; PATIENT WAS FASTINGPERFORMED BY: CB [facility] Ldjdeo5014 [address]le RoadDublin [place] [id number]; fu 7-12 db LIPID PANEL (41627)Ordered B y: Film Waxer on 12-19-2020 Cholesterol [Mass/Vol] 193 mg/dL Normal 100-199 [facility]; [facility] Work Phone: Comment on above: PATIENT WAS FASTINGP ERFORMED BY: CB [facility] Koxnqd1794 [address] RoadDublin [place] [id number] Cholesterol in HDL [Mass/Vol] 78 mg/dL Normal [facility]; [facility] Work Phone: Comment on above: PATIENT WAS FASTINGP ERFORMED BY: CB [facility] Hyxorz3344 [address] RoadDublin [place] [id number] Triglyceride [Mass/Vol] 72 mg/dL Normal 0-149 [facility]; [facility] Work Phone: Comment on above: PATIENT WAS FASTINGP ERFORMED BY: AMI DiannaJerry PopeHpxvse3613 [facility] [id number] LIPID PANEL (58706) 13 mg/dL Normal 5-40 [facility]; [facility] Work Phone: Comment on above: PATIENT WAS FASTINGP ERFORMED BY: AMI DiannaJerry PopeRutqwt6334 [facility] [id number] LIPID PANEL (97024) 102 mg/dL Abnormal 0-99 [facility]; [facility] Work Phone: Comment on above: PATIENT WAS FASTINGP ERFORMED BY: AMI DiannaJerry PopeRyyxxw8940 [facility] [id number] LIPID PANEL (62916) 1.3 {ratio} Normal 0.0-3.2 [facility]; [facility] Work Phone: Comment on above: LDL/HDL Ratio Men Wo men 1/2 Avg.Risk 1.0 1.5 Avg.Risk 3.6 3.2 2X Avg.Risk 6.2 5.0 3X Avg.Risk 8.0 6.1 PATIENT WAS FASTINGP ERFORMED BY: AMI Popelin6370 [facility] [id number] CBC WITH MANUAL DIFF (04556) Ordered By: Film Waxer on 06-17-2020 Basophils (Bld) [#/Vol] 0.0 {x10E3/uL} Normal 0.0-0.2 [facility]; [facility] Work Phone: Comment on above: PATIENT WAS FASTINGP ERFORMED BY: AMI Popelin6370 [facility] [id number] Information: NURSE DRAW Basophils (Bld) [#/Vol] 0.0 10*3/uL Normal 0.0-0.2 [facility]; [facility] Work Phone: Comment on above: PATIENT WAS FASTINGP ERFORMED BY: AMI Popelin6370 [facility] [id number] Information: NURSE DRAW Basophils/100 WBC (Bld) 1 % Normal [facility]; [facility] Work Phone: Comment on above: PATIENT WAS FASTINGP ERFORMED BY: [facility]St[facility] Wcabmq[address] [id number] Information: NURSE DRAW Eosinophils (Bld) [#/Vol] 0.1 {x10E3/uL} Normal 0.0-0.4 [facility]; [facility] Work Phone: Comment on above: PATIENT WAS FASTINGP ERFORMED BY: [address] [id number] Information: NURSE DRAW Eosinophils (Bld) [#/Vol] 0.1 10*3/uL Normal 0.0-0.4 [facility]; [facility] Work Phone: Comment on above: PATIENT WAS FASTINGP ERFORMED BY: [address] [id number] Information: NURSE DRAW Eosinophils/100 WBC (Bld) 3 % Normal [facility]; [facility] Work Phone: Comment on above: PATIENT WAS FASTINGP ERFORMED BY: [address] [id number] Information: NURSE DRAW Erythrocyte distribution width (RBC) [Ratio] 12.4 % Normal 11.7-15.4 [facility]; [facility] Work Phone: Comment on above: PATIENT WAS FASTINGP ERFORMED BY: [address] [id number] Information: NURSE DRAW Hematocrit (Bld) [Volume fraction] 37.6 % Normal 34.0-46.6 [facility]; [facility] Work Phone: Comment on above: PATIENT WAS FASTINGP ERFORMED BY: [address] [id number] Information: NURSE DRAW Hemoglobin (Bld) [Mass/Vol] 12.3 g/dL Normal 11.1-15.9 [facility]; [facility] Work Phone: Comment on above: PATIENT WAS FASTINGP ERFORMED BY: AMI Min Pope[address] [id number] Information: NURSE DRAW Immature granulocytes (Bld) [#/Vol] 0.0 {x10E3/uL} Normal 0.0-0.1 [facility]; [facility] Work Phone: Comment on above: PATIENT WAS FASTINGP ERFORMED BY: AMI Dianna[address] [id number] Information: NURSE DRAW Immature granulocytes (Bld) [#/Vol] 0.0 10*3/uL Normal 0.0-0.1 [facility]; [facility] Work Phone: Comment on above: PATIENT WAS FASTINGP ERFORMED BY: AMI [address] [id number] Information: NURSE DRAW Immature granulocytes/100 WBC (Bld) 0 % Normal [facility]; [facility] Work Phone: Comment on above: PATIENT WAS FASTINGP ERFORMED BY: AMI Fareed[address] [id number] Information: NURSE DRAW Lymphocytes (Bld) [#/Vol] 1.5 {x10E3/uL} Normal 0.7-3.1 [facility]; [facility] Work Phone: Comment on above: PATIENT WAS FASTINGP ERFORMED BY: AMI Dianna[address] [id number] Information: NURSE DRAW Lymphocytes (Bld) [#/Vol] 1.5 10*3/uL Normal 0.7-3.1 [facility]; [facility] Work Phone: Comment on above: PATIENT WAS FASTINGP ERFORMED BY: AMI [address] [id number] Information: NURSE DRAW Lymphocytes/100 WBC (Bld) 34 % Normal [facility]; [facility] Work Phone: Comment on above: PATIENT WAS FASTINGP ERFORMED BY: AMI [address] [id number] Information: NURSE DRAW MCH (RBC) [Entitic mass] 30.2 pg Normal 26.6-33.0 [facility]; [facility] Work Phone: Comment on above: PATIENT WAS FASTINGP ERFORMED BY: [address] [id number] Information: NURSE DRAW MCHC (RBC) [Mass/Vol] 32.7 g/dL Normal 31.5-35.7 [facility]; [facility] Work Phone: Comment on above: PATIENT WAS FASTINGP ERFORMED BY: AMI [address] [id number] Information: NURSE DRAW MCV (RBC) [Entitic vol] 92 fL Normal 79-97 [facility]; [facility] Work Phone: Comment on above: PATIENT WAS FASTINGP ERFORMED BY: AMI [address] [id number] Information: NURSE DRAW Monocytes (Bld) [#/Vol] 0.3 {x10E3/uL} Normal 0.1-0.9 [facility]; [facility] Work Phone: Comment on above: PATIENT WAS FASTINGP ERFORMED BY: AMI [address] [id number] Information: NURSE DRAW Monocytes (Bld) [#/Vol] 0.3 10*3/uL Normal 0.1-0.9 [facility]; [facility] Work Phone: Comment on above: PATIENT WAS FASTINGP ERFORMED BY: AMI Dianna[address] [id number] Information: NURSE DRAW Monocytes/100 WBC (Bld) 7 % Normal [facility]; [facility] Work Phone: Comment on above: PATIENT WAS FASTINGP ERFORMED BY: AMI Campos[address] [facility] [id number] Information: NURSE DRAW Neutrophils (Bld) [#/Vol] 2.5 {x10E3/uL} Normal 1.4-7.0 [facility]; [facility] Work Phone: Comment on above: PATIENT WAS FASTINGP ERFORMED BY: AMI Min Popelin[address] [facility] [id number] Information: NURSE DRAW Neutrophils (Bld) [#/Vol] 2.5 10*3/uL Normal 1.4-7.0 [facility]; [facility] Work Phone: Comment on above: PATIENT WAS FASTINGP ERFORMED BY: AMI Min Campos6370 [facility] [id number] Information: NURSE DRAW Neutrophils/100 WBC (Bld) 55 % Normal [facility]; [facility] Work Phone: Comment on above: PATIENT WAS FASTINGP ERFORMED BY: AMI Min Popelin6370 [facility] [id number] Information: NURSE DRAW Platelets (Bld) [#/Vol] 277 {x10E3/uL} Normal 150-450 [facility]; [facility] Work Phone: Comment on above: PATIENT WAS FASTINGP ERFORMED BY: AMI Min Popelin6370 [facility] [id number] Information: NURSE DRAW Platelets (Bld) [#/Vol] 277 10*3/uL Normal 150-450 [facility]; [facility] Work Phone: Comment on above: PATIENT WAS FASTINGP ERFORMED BY: AMI LabLulu Ibqsul[address] [facility] [id number] Information: NURSE DRAW RBC (Bld) [#/Vol] 4.07 {x10E6/uL} Normal 3.77-5.28 [facility]; [facility] Work Phone: Comment on above: PATIENT WAS FASTINGP ERFORMED BY: AMI LabCo Owbnsg9392 [facility] [id number] Information: NURSE DRAW RBC (Bld) [#/Vol] 4.07 10*6/uL Normal 3.77-5.28 [facility]; [facility] Work Phone: Comment on above: PATIENT WAS FASTINGP ERFORMED BY: AMI Guerrier Ryrivv8696 [facility] [id number] Information: NURSE DRAW WBC (Bld) [#/Vol] 4.5 {x10E3/uL} Normal 3.4-10.8 [facility] Internal [facility]; [facility] Work Phone: Comment on above: PATIENT WAS FASTINGP ERFORMED BY: AMI Fareed Hsvxbp3086 [facility] [id number] Information: NURSE DRAW WBC (Bld) [#/Vol] 4.5 10*3/uL Normal 3.4-10.8 [facility]; [facility] Work Phone: Comment on above: PATIENT WAS FASTINGP ERFORMED BY: [facility]naSt. [facility] Eoijto2225 [facility] [id number] Information: NURSE DRAW Metabolic Panel, Clarita kilgore ([id number])Ordered By: Film Waxer on 06-17-2020 Albumin [Mass/Vol] 4.0 g/dL Normal 3.8-4.8 [facility]; [facility] Work Phone: Comment on above: PATIENT WAS FASTINGP ERFORMED BY: AMI Fareed Bgezbb7961 [facility] [id number] Albumin/Globulin [Mass ratio] 1.9 {ratio} Normal 1.2-2.2 [facility] Internal Medicine; [facility] Work Phone: Comment on above: PATIENT WAS FASTINGP ERFORMED BY: AMI Guerrier Cxivog5267 [facility] [id number] ALP [Catalytic activity/Vol] 82 [iU]/L Normal 39-117 [facility]; [facility] Work Phone: Comment on above: PATIENT WAS FASTINGP ERFORMED BY: AMI LabCoadalberto Buqdzm5529 [address] RoadDublin [place] [id number] ALP [Catalytic activity/Vol] 82 U/L Normal 39-117 [facility]; [facility] Work Phone: Comment on above: PATIENT WAS FASTINGP ERFORMED BY: AMI LabJerry PopeLfycwc4446 [address]le RoadDublin [place] [id number] ALT [Catalytic activity/Vol] 20 [iU]/L Normal 0-32 [facility]; [facility] Work Phone: Comment on above: PATIENT WAS FASTINGP ERFORMED BY: AMI [facility] Vxrbfh5091 [address] RoadDublin [place] [id number] ALT [Catalytic activity/Vol] 20 U/L Normal 0-32 [facility]; [facility] Work Phone: Comment on above: PATIENT WAS FASTINGP ERFORMED BY: AMI Popelin6370 [address] RoadDublin [place] [id number] AST [Catalytic activity/Vol] 25 [iU]/L Normal 0-40 [facility]; [facility] Work Phone: Comment on above: PATIENT WAS FASTINGP ERFORMED BY: AMI LabJerry PopeNrpznb6128 [address] RoadDublin [place] [id number] AST [Catalytic activity/Vol] 25 U/L Normal 0-40 [facility]; [facility] Work Phone: Comment on above: PATIENT WAS FASTINGP ERFORMED BY: AMI LabJerry PopeRjbjfl9782 [address] RoadDublin [place] [id number] Bilirubin [Mass/Vol] 0.6 mg/dL Normal 0.0-1.2 [facility]; [facility] Work Phone: Comment on above: PATIENT WAS FASTINGP ERFORMED BY: AMI LabCoadalberto PopeNnpnsp4975 [address] RoadDublin [place] [id number] Calcium [Mass/Vol] 9.2 mg/dL Normal 8.7-10.3 [facility]; [facility] Work Phone: Comment on above: PATIENT WAS FASTINGP ERFORMED BY: AMI LabJerry PopeRmgetk6797 [address] RoadDublin [place] [id number] Chloride [Moles/Vol] 105 mmol/L Normal 96-106 [facility]; [facility] Work Phone: Comment on above: PATIENT WAS FASTINGP ERFORMED BY: CB [facility] Iitljb9625 [address] RoadDublin [place] [id number] CO2 [Moles/Vol] 23 mmol/L Normal 20-29 [facility] Internal Medicine; [facility] Work Phone: Comment on above: PATIENT WAS FASTINGP ERFORMED BY: CB [facility] Subylh9126 [address] RoadDublin [place] [id number] Creatinine [Mass/Vol] 0.97 mg/dL Normal 0.57-1.00 [facility]; [facility] Work Phone: Comment on above: PATIENT WAS FASTINGP ERFORMED BY: [facility] Cywlnc8131 [address] RoadDublin [place] [id number] GFR/1.73 sq M predicted among blacks CKD-EPI (S/P/Bld) [Vol rate/Area] 70 mL/min/1.73 Normal [facility]; [facility] Work Phone: Comment on above: PATIENT WAS FASTINGP ERFORMED BY: CB [facility] Shygtw7046 [address] RoadDublin [place] [id number] GFR/1.73 sq M predicted among non-blacks CKD-EPI (S/P/Bld) [Vol rate/Area] 61 mL/min/1.73 Normal [facility]; [facility] Work Phone: Comment on above: PATIENT WAS FASTINGP ERFORMED BY: CB [facility] Yarhaz5576 [address] RoadDublin [place] [id number] Globulin (S) [Mass/Vol] 2.1 g/dL Normal 1.5-4.5 [facility]; [facility] Work Phone: Comment on above: PATIENT WAS FASTINGP ERFORMED BY: CB [facility] Pzxaav1909 [address] RoadDublin [place] [id number] Glucose [Mass/Vol] 85 mg/dL Normal 65-99 [facility]; [facility] Work Phone: Comment on above: PATIENT WAS FASTINGP ERFORMED BY: AMI [facility] Zpmmsg0882 [address] RoadDublin [place] [id number] Potassium [Moles/Vol] 3.9 mmol/L Normal 3.5-5.2 [facility]; [facility] Work Phone: Comment on above: PATIENT WAS FASTINGP ERFORMED BY: CB [facility] Sggrye3406 [address] RoadDublin [place] [id number] Protein [Mass/Vol] 6.1 g/dL Normal 6.0-8.5 [facility]; [facility] Work Phone: Comment on above: PATIENT WAS FASTINGP ERFORMED BY: AMI [facility] Xfgaoq2252 [address] RoadDublin [place] [id number] Sodium [Moles/Vol] 141 mmol/L Normal 134-144 [facility]; [facility] Work Phone: Comment on above: PATIENT WAS FASTINGP ERFORMED BY: AMI [facility] Zikpyl6166 [address] RoadDublin [place] [id number] Urea nitrogen [Mass/Vol] 16 mg/dL Normal 8-27 [facility]; [facility] Work Phone: Comment on above: PATIENT WAS FASTINGP ERFORMED BY: AMI [facility] Axpyhf6169 [address] RoadDublin [place] [id number] Urea nitrogen/Creatinine [Mass ratio] 16 mg/mg Normal - [facility]; [facility] Work Phone: Comment on above: PATIENT WAS FASTINGP ERFORMED BY: CB [facility] Dvekrx0316 [address] RoadDublin [place] [id number] URINALYSIS ([id number])Ordered By : Film Waxer on 06-17-2020 Appearance (U) Clear Normal Comprehens [facility]; [facility] Work Phone: Comment on above: PATIENT WAS FASTINGP ERFORMED BY: CB [facility] Ayggof5509 [address] RoadDublin [place] [id number]; hx hematuria and no current sx. Bilirubin Ql (U) Negative Normal Comprehe nsive Internal Medicine; [facility] Work Phone: Comment on above: PATIENT WAS FASTINGP ERFORMED BY: CB [facility] Wlhutl0819 [address] RoadDublin [place] [id number]; hx hematuria and no current sx. Bilirubin Ql (U) Negative Normal Comprehe nsive Internal Medicine; [facility] Work Phone: Comment on above: PATIENT WAS FASTINGP ERFORMED BY: CB [facility] Mokkms8436 [address] RoadDublin [place] [id number]; hx hematuria and no current sx. Color (U) Yellow Normal [facility]; [facility] Work Phone: Comment on above: PATIENT WAS FASTINGP ERFORMED BY: CB [facility] Zrxcar6792 [address] RoadDublin [place] [id number]; hx hematuria and no current sx. Glucose Ql (U) Negative Normal Comprehens [facility]; [facility] Work Phone: Comment on above: PATIENT WAS FASTINGP ERFORMED BY: CB [facility] Pftxwl3769 [address] RoadDublin [place] [id number]; hx hematuria and no current sx. Glucose Ql (U) Negative Normal Comprehens [facility]; [facility] Work Phone: Comment on above: PATIENT WAS FASTINGP ERFORMED BY: CB [facility] Gheuvm9911 [address] RoadDublin [place] [id number]; hx hematuria and no current sx. Hemoglobin Ql (U) 1+ Abnormal Compreh ensive Internal Medicine; [facility] Work Phone: Comment on above: PATIENT WAS FASTINGP ERFORMED BY: CB [facility] Tgemgw8979 [address] RoadDublin [place] [id number]; hx hematuria and no current sx. Ketones Ql (U) Negative Normal Comprehens [facility]; [facility] Work Phone: Comment on above: PATIENT WAS FASTINGP ERFORMED BY: CB [facility] Ehidua9096 [address] RoadDublin [place] [id number]; hx hematuria and no current sx. Ketones Ql (U) Negative Normal Comprehens k[facility]; [facility] Work Phone: Comment on above: PATIENT WAS FASTINGP ERFORMED BY: AMI Campos6370 [address] Roadblin [place] [id number]; hx hematuria and no current sx. Leukocyte esterase Test strip Ql (U) Trace Abnormal [facility]; [facility] Work Phone: Comment on above: PATIENT WAS FASTINGP ERFORMED BY: AMI LabLulu Xmwcpp5751 [address] Roadblin [place] [id number]; hx hematuria and no current sx. Microscopic observation LM Nom (Urine sed) See below: Normal [facility]; [facility] Work Phone: Comment on above: Microscopic was irais cated and was performed. PATIENT WAS FASTINGP ERFORMED BY: AMI Guerrier Idxjoq8777 [address] RoadOnley [place] [id number]; hx hematuria and no current sx. Nitrite Ql (U) Negative Normal Comprehens kaleb [facility]; [facility] Work Phone: Comment on above: PATIENT WAS FASTINGP ERFORMED BY: AMI Copeland Zrqdbv8[address] [facility] [place] [id number]; hx hematuria and no current sx. Nitrite Ql (U) Negative Normal Comprehens kaleb [facility]; [facility] Work Phone: Comment on above: PATIENT WAS FASTINGP ERFORMED BY: AMI Guerrier Tvxmug[address] [facility] [id number]; hx hematuria and no current sx. pH (U) 6.5 [pH] Normal 5.0-7.5 [facility]; [facility] Work Phone: Comment on above: PATIENT WAS FASTINGP ERFORMED BY: AMI LabLulu Eanqsp35[address] [facility] [place] [id number]; hx hematuria and no current sx. Protein Ql (U) Negative Normal Comprehens kaleb [facility]; [facility] Work Phone: Comment on above: PATIENT WAS FASTINGP ERFORMED BY: [facility] Uvhzsp0198 [address] Roadblin [place] [id number]; hx hematuria and no current sx. Protein Ql (U) Negative Normal Comprehens [facility] Internal Medicine; [facility] Work Phone: Comment on above: PATIENT WAS FASTINGP ERFORMED BY: [facility] Fzscqr4686 [facility] [id number]; hx hematuria and no current sx. Specific gravity (U) [Rel density] 1.011 1 Normal 1.005-1.03 0 [facility]; [facility] Work Phone: Comment on above: PATIENT WAS FASTINGP ERFORMED BY: [facility] Utkapi[address] [facility] [place] [id number]; hx hematuria and no current sx. Urobilinogen (U) [Mass/Vol] 0.2 mg/dL Normal 0.2-1.0 [facility]; [facility] Work Phone: Comment on above: PATIENT WAS FASTINGP ERFORMED BY: [facility] Wwghkt8300 [address] RoadDublin [place] [id number]; hx hematuria and no current sx. Urobilinogen Test strip (U) [Mass/Vol] 0.2 mg/dL Normal 0.2-1.0 [facility]; [facility] Work Phone: Comment on above: PATIENT WAS FASTINGP ERFORMED BY: [facility] [facility] [place] [id number]; hx hematuria and no current sx. 2019 Novel Coronavirus (COVI D-19), MARIANA ([id number])Ordered By: Film Waxer on 04-25-2020 2019 Novel Coronavirus (COVID-19), MARIANA ([id number]) Detected Abnormal [facility] Work Phone: Comment on above: Client Requested Fla gThis nucleic acid amplification test was developed and its performancecharacteristics determined by [employer]. Nucleic acidamplification tests include PCR and TMA. This test has not been FDAcleared or approved. This test has been authorized by FDA under anEmergency Use Authorization (EUA). This test is only authorized forthe duration of time the declaration that circumstances existjustifying the authorization of the emergency use of in vitrodiagnostic tests for detection of SARS-CoV-2 virus and/or diagnosisof COVID-19 infection under section 564(b)(1) of the Act, 21 U.S.C.360bbb-3(b) (1), unless the authorization is terminated or revokedsooner.When diagnostic testing is negative, the possibility of a falsenegative result should be considered in the context of a patient'srecent exposures and the presence of clinical signs and symptomsconsistent with COVID-19. An individual without symptoms of COVID-19and who is not shedding SARS-CoV-2 virus would expect to have anegative (not detected) result in this assay. PATIENT NOT FASTINGP ERFORMED BY: PEGGY [employer] [id number] TW Gabe [facility] [place] [id number] 2018 Novel Coronavirus (COVID-19), MARIANA ([id number]) Detected Abnormal [facility]; [facility] Work Phone: Comment on above: Client Requested Fla gThis nucleic acid amplification test was developed and its performancecharacteristics determined by [employer]. Nucleic acidamplification tests include PCR and TMA. This test has not been FDAcleared or approved. This test has been authorized by FDA under anEmergency Use Authorization (EUA). This test is only authorized forthe duration of time the declaration that circumstances existjustifying the authorization of the emergency use of in vitrodiagnostic tests for detection of SARS-CoV-2 virus and/or diagnosisof COVID-19 infection under section 564(b)(1) of the Act, 21 U.S.C.360bbb-3(b) (1), unless the authorization is terminated or revokedsooner.When diagnostic testing is negative, the possibility of a falsenegative result should be considered in the context of a patient'srecent exposures and the presence of clinical signs and symptomsconsistent with COVID-19. An individual without symptoms of COVID-19and who is not shedding SARS-CoV-2 virus would expect to have anegative (not detected) result in this assay. PATIENT NOT FASTINGP ERFORMED BY: TG [facility] [id number] DriveRTP [place] [id number] LIPID PANEL ([id number])Ordered B y: Film Waxer on 12-27-2019 Cholesterol [Mass/Vol] 187 mg/dL Normal 100-199 [facility] Work Phone: Comment on above: PATIENT WAS FASTINGP ERFORMED BY: AMI [facility] Nhnoww[address] SiTimeDublin [place] [id number] Cholesterol in HDL [Mass/Vol] 78 mg/dL Normal [facility] Work Phone: Comment on above: PATIENT WAS FASTINGP ERFORMED BY: CB [facility] Aasmhk[address] Adesto Technologiesblin [place] [id number] Cholesterol in LDL [Mass/Vol] 97 mg/dL Normal 0-99 [facility] Work Phone: Comment on above: PATIENT WAS FASTINGP ERFORMED BY: CB [facility] Nhkngb[address] Adesto Technologiesblin [place] [id number] Cholesterol in LDL/Cholesterol in HDL [Mass ratio] 1.2 {ratio} Normal 0.0-3.2 [facility] Work Phone: Comment on above: LDL/HDL Ratio Men Wo men 1/2 Avg.Risk 1.0 1.5 Avg.Risk 3.6 3.2 2X Avg.Risk 6.2 5.0 3X Avg.Risk 8.0 6.1 PATIENT WAS FASTINGP ERFORMED BY: AMI [facility] Kdvyuc[address] Adesto Technologiesin [place] [id number] Cholesterol in VLDL [Mass/Vol] 12 mg/dL Normal 5-40 [facility] Work Phone: Comment on above: PATIENT WAS FASTINGP ERFORMED BY: CB [facility] Lzwaah[address] SiTimeDublin [place] [id number] Triglyceride [Mass/Vol] 60 mg/dL Normal 0-149 [facility] Work Phone: Comment on above: PATIENT WAS FASTINGP ERFORMED BY: CB [facility] Goniaz[address] SiTimeDublin [place] [id number] METABOLIC PANEL, COMPREHENSI VE ([id number])Ordered By: Film Waxer on 12-27-2019 Albumin [Mass/Vol] 4.2 g/dL Normal 3.8-4.8 [facility] Work Phone: Comment on above: PATIENT WAS FASTINGP ERFORMED BY: CB [facility] Olrsbn4533 [address]le RoadDublin [place] [id number] Albumin/Globulin [Mass ratio] 2.0 {ratio} Normal 1.2-2.2 [facility] Work Phone: Comment on above: PATIENT WAS FASTINGP ERFORMED BY: CB [facility] Ugmcda6153 [address]le RoadDublin [place] [id number] ALP [Catalytic activity/Vol] 71 [iU]/L Normal 39-117 [facility] Work Phone: Comment on above: PATIENT WAS FASTINGP ERFORMED BY: CB [facility] Phdphp0229 [address] RoadDublin [place] [id number] ALP [Catalytic activity/Vol] 71 U/L Normal 39-117 [facility]; [facility] Work Phone: Comment on above: PATIENT WAS FASTINGP ERFORMED BY: CB [facility] Nbbfza9656 [address]le RoadDublin [place] [id number] ALT [Catalytic activity/Vol] 23 [iU]/L Normal 0-32 [facility] Work Phone: Comment on above: PATIENT WAS FASTINGP ERFORMED BY: CB [facility] Npfsoh1679 [address] RoadDublin [place] [id number] ALT [Catalytic activity/Vol] 23 U/L Normal 0-32 [facility]; [facility] Work Phone: Comment on above: PATIENT WAS FASTINGP ERFORMED BY: CB [facility] Grnuwj0841 [address] RoadDublin [place] [id number] AST [Catalytic activity/Vol] 24 [iU]/L Normal 0-40 [facility] Work Phone: Comment on above: PATIENT WAS FASTINGP ERFORMED BY: CB [facility] Fbffot6423 [address] RoadDublin [place] [id number] AST [Catalytic activity/Vol] 24 U/L Normal 0-40 [facility]; [facility] Work Phone: Comment on above: PATIENT WAS FASTINGP ERFORMED BY: CB [facility] Idbuxj5472 [address] RoadDublin [place] [id number] Bilirubin [Mass/Vol] 0.5 mg/dL Normal 0.0-1.2 [facility] Internal Medicine Work Phone: Comment on above: PATIENT WAS FASTINGP ERFORMED BY: CB [facility] Zootci3910 [address] RoadDublin [place] [id number] Calcium [Mass/Vol] 9.3 mg/dL Normal 8.7-10.3 [facility] Work Phone: Comment on above: PATIENT WAS FASTINGP ERFORMED BY: [facility] Mbgsgk3708 [address] RoadDublin [place] [id number] Chloride [Moles/Vol] 103 mmol/L Normal 96-106 [facility] Internal Medicine Work Phone: Comment on above: PATIENT WAS FASTINGP ERFORMED BY: [facility] Adswuc2242 [address] RoadDublin [place] [id number] CO2 [Moles/Vol] 25 mmol/L Normal 20-29 [facility] Work Phone: Comment on above: PATIENT WAS FASTINGP ERFORMED BY: [facility] Jjnsnq0448 [address] RoadDublin [place] [id number] Creatinine [Mass/Vol] 0.96 mg/dL Normal 0.57-1.00 [facility] Internal [facility] Work Phone: Comment on above: PATIENT WAS FASTINGP ERFORMED BY: [facility] Lojkjh6715 [address] RoadDublin [place] [id number] GFR/1.73 sq M predicted among blacks CKD-EPI (S/P/Bld) [Vol rate/Area] 71 mL/min/1.73 Normal [facility] Work Phone: Comment on above: PATIENT WAS FASTINGP ERFORMED BY: CB [facility] Ncnuic4077 [address] RoadDublin [place] [id number] GFR/1.73 sq M predicted among non-blacks CKD-EPI (S/P/Bld) [Vol rate/Area] 62 mL/min/1.73 Normal [facility] Work Phone: Comment on above: PATIENT WAS FASTINGP ERFORMED BY: CB [facility] Qvbjsq2337 [address] RoadDublin [place] [id number] Globulin (S) [Mass/Vol] 2.1 g/dL Normal 1.5-4.5 [facility] Work Phone: Comment on above: PATIENT WAS FASTINGP ERFORMED BY: CB [facility] Oxsoro8740 [address] RoadDublin [place] [id number] Glucose [Mass/Vol] 93 mg/dL Normal 65-99 [facility] Work Phone: Comment on above: PATIENT WAS FASTINGP ERFORMED BY: [facility] Mgwdzy5108 [address] RoadDublin [place] [id number] Potassium [Moles/Vol] 4.1 mmol/L Normal 3.5-5.2 [facility] Work Phone: Comment on above: PATIENT WAS FASTINGP ERFORMED BY: [facility] Ktngpn3749 [address] RoadDublin [place] [id number] Protein [Mass/Vol] 6.3 g/dL Normal 6.0-8.5 [facility] Work Phone: Comment on above: PATIENT WAS FASTINGP ERFORMED BY: [facility] Apssjt1876 [address] RoadDublin [place] [id number] Sodium [Moles/Vol] 143 mmol/L Normal 134-144 [facility] Work Phone: Comment on above: PATIENT WAS FASTINGP ERFORMED BY: [facility] Akpcxn8418 [address]le RoadDublin [place] [id number] Urea nitrogen [Mass/Vol] 17 mg/dL Normal 8-27 [facility] Work Phone: Comment on above: PATIENT WAS FASTINGP ERFORMED BY: CB [facility] Ecylwa0210 [address] RoadDublin [place] [id number] Urea nitrogen/Creatinine [Mass ratio] 18 mg/mg Normal 12-28 [facility] Work Phone: Comment on above: PATIENT WAS FASTINGP ERFORMED BY: [employer] Yrzabf1310 [facility] [id number] TSH ([id number])Ordered By: Sahil m Pump Assembler on 12-27-2019 TSH Qn 2.040 {uIU/mL} Normal 0.450-4.50 0 [facility] Work Phone: Comment on above: PATIENT WAS FASTINGP ERFORMED BY: [facility] Mnvsnv1096 [facility] [id number] Thin Prep Pap ([id number])Ordered By: Film Waxer on 07-10-2019 Microscopic observation Other stain Nom (Unsp spec) . Normal [facility] Work Phone: Comment on above: Source.............C ervix;EndocervixNo. of containers..01 ThinPrep VialPERFORMED BY: Minka[address] [place] [address] [id number] Information: [id number] Pathology report final diagnosis Narrative SPRCS Normal [facility] Work Phone: Comment on above: NEGATIVE FOR INTRAEP ITHELIAL LESION OR MALIGNANCY.CELLULAR CHANGES ASSOCIATED WITH ATROPHY ARE PRESENT.Satisfactory for evaluation. Endocervical and/or squamous metaplasticcells (endocervical component) are present.Z12.4Ematt Aponte Senior Adults Director (ASCP) Source.............C ervix;EndocervixNo. of containers..01 ThinPrep VialPERFORMED BY: [id number] [id number] Information: [id number] Thin Prep Pap ([id number]) PAPSMR Normal [facility] Work Phone: Comment on above: The Pap smear is a s creening test designed to aid in the detection ofpremalignant and malignant conditions of the uterine cervix. It is not adiagnostic procedure and should not be used as the sole means of detectingcervical cancer. Both false-positive and false-negative reports do occur. .This liquid based ThinPrep(R) pap test was screened with theuse of an image guided system.The HPV DNA reflex criteria were not met with this specimen resulttherefore, no HPV testing was performed. . Source.............C ervix;EndocervixNo. of containers..01 ThinPrep VialPERFORMED BY: [address] [id number] Information: [id number] CBC WITH MANUAL DIFF ([id number]) Ordered By: Film Waxer on 06-27-2019 Basophils (Bld) [#/Vol] 0.0 {x10E3/uL} Normal 0.0-0.2 [facility] Work Phone: Comment on above: PATIENT WAS FASTINGP ERFORMED BY: [address] [id number] Information: NURSE DRAW Basophils (Bld) [#/Vol] 0.0 10*3/uL Normal 0.0-0.2 [facility]; [facility] Work Phone: Comment on above: PATIENT WAS FASTINGP ERFORMED BY: [address] [id number] Information: NURSE DRAW Basophils/100 WBC (Bld) 1 % Normal [facility] Work Phone: Comment on above: PATIENT WAS FASTINGP ERFORMED BY: [address] [id number] Information: NURSE DRAW Eosinophils (Bld) [#/Vol] 0.1 {x10E3/uL} Normal 0.0-0.4 [facility] Work Phone: Comment on above: PATIENT WAS FASTINGP ERFORMED BY: [address] [id number] Information: NURSE DRAW Eosinophils (Bld) [#/Vol] 0.1 10*3/uL Normal 0.0-0.4 [facility]; [facility] Work Phone: Comment on above: PATIENT WAS FASTINGP ERFORMED BY: AMI [place] [id number] [facility] [id number] Information: NURSE DRAW Eosinophils/100 WBC (Bld) 3 % Normal [facility] Work Phone: Comment on above: PATIENT WAS FASTINGP ERFORMED BY: [address] [id number] Information: NURSE DRAW Erythrocyte distribution width (RBC) [Ratio] 13.6 % Normal 11.7-15.4 [facility] Work Phone: Comment on above: Please note refere nce interval change PATIENT WAS FASTINGP ERFORMED BY: AMI [address] [id number] Information: NURSE DRAW Hematocrit (Bld) [Volume fraction] 41.3 % Normal 34.0-46.6 [facility] Work Phone: Comment on above: PATIENT WAS FASTINGP ERFORMED BY: [address] [id number] Information: NURSE DRAW Hemoglobin (Bld) [Mass/Vol] 13.8 g/dL Normal 11.1-15.9 [facility] Work Phone: Comment on above: PATIENT WAS FASTINGP ERFORMED BY: [address] [id number] Information: NURSE DRAW Immature granulocytes (Bld) [#/Vol] 0.0 {x10E3/uL} Normal 0.0-0.1 [facility] Work Phone: Comment on above: PATIENT WAS FASTINGP ERFORMED BY: [address] [id number] Information: NURSE DRAW Immature granulocytes (Bld) [#/Vol] 0.0 10*3/uL Normal 0.0-0.1 [facility]; [facility] Work Phone: Comment on above: PATIENT WAS FASTINGP ERFORMED BY: [place] [id number] [facility] [id number] Information: NURSE DRAW Immature granulocytes/100 WBC (Bld) 0 % Normal [facility] Work Phone: Comment on above: PATIENT WAS FASTINGP ERFORMED BY: [address] [id number] Information: NURSE DRAW Lymphocytes (Bld) [#/Vol] 1.8 {x10E3/uL} Normal 0.7-3.1 [facility] Work Phone: Comment on above: PATIENT WAS FASTINGP ERFORMED BY: [address] [id number] Information: NURSE DRAW Lymphocytes (Bld) [#/Vol] 1.8 10*3/uL Normal 0.7-3.1 [facility]; [facility] Work Phone: Comment on above: PATIENT WAS FASTINGP ERFORMED BY: [address] [id number] Information: NURSE DRAW Lymphocytes/100 WBC (Bld) 38 % Normal [facility] Work Phone: Comment on above: PATIENT WAS FASTINGP ERFORMED BY: [address] [id number] Information: NURSE DRAW MCH (RBC) [Entitic mass] 30.6 pg Normal 26.6-33.0 [facility] Work Phone: Comment on above: PATIENT WAS FASTINGP ERFORMED BY: [address] [id number] Information: NURSE DRAW MCHC (RBC) [Mass/Vol] 33.4 g/dL Normal 31.5-35.7 [facility] Work Phone: Comment on above: PATIENT WAS FASTINGP ERFORMED BY: [address] [id number] Information: NURSE DRAW MCV (RBC) [Entitic vol] 92 fL Normal 79-97 [facility] Work Phone: Comment on above: PATIENT WAS FASTINGP ERFORMED BY: AMI [facility] Kprvee0562 [facility] [id number] Information: NURSE DRAW Monocytes (Bld) [#/Vol] 0.4 {x10E3/uL} Normal 0.1-0.9 [facility] Work Phone: Comment on above: PATIENT WAS FASTINGP ERFORMED BY: AMI [facility] Tzipjw[address] [id number] Information: NURSE DRAW Monocytes (Bld) [#/Vol] 0.4 10*3/uL Normal 0.1-0.9 [facility]; [facility] Work Phone: Comment on above: PATIENT WAS FASTINGP ERFORMED BY: AMI [facility] HospitalJerry PopeWgqtib[address] [id number] Information: NURSE DRAW Monocytes/100 WBC (Bld) 9 % Normal [facility] Work Phone: Comment on above: PATIENT WAS FASTINGP ERFORMED BY: AMI Guerrier Njscto7692 [facility] [id number] Information: NURSE DRAW Neutrophils (Bld) [#/Vol] 2.4 {x10E3/uL} Normal 1.4-7.0 [facility] Work Phone: Comment on above: PATIENT WAS FASTINGP ERFORMED BY: AMI Guerrier Zxwzbr6299 [facility] [id number] Information: NURSE DRAW Neutrophils (Bld) [#/Vol] 2.4 10*3/uL Normal 1.4-7.0 [facility]; [facility] Work Phone: Comment on above: PATIENT WAS FASTINGP ERFORMED BY: AMI LabSt[facility] Ewozcl2158 [facility] [id number] Information: NURSE DRAW Neutrophils/100 WBC (Bld) 49 % Normal [facility] Work Phone: Comment on above: PATIENT WAS FASTINGP ERFORMED BY: AMI LabJerry PopeMzdyuk3408 [facility] [id number] Information: NURSE DRAW Platelets (Bld) [#/Vol] 263 {x10E3/uL} Normal 150-450 [facility] Work Phone: Comment on above: PATIENT WAS FASTINGP ERFORMED BY: AMI DiannaJerry PopeFzuzqu3344 [facility] [id number] Information: NURSE DRAW Platelets (Bld) [#/Vol] 263 10*3/uL Normal 150-450 [facility]; [facility] Work Phone: Comment on above: PATIENT WAS FASTINGP ERFORMED BY: AMI DiannaJerry PopeRirfgt5964 [facility] [id number] Information: NURSE DRAW RBC (Bld) [#/Vol] 4.51 {x10E6/uL} Normal 3.77-5.28 [facility] Internal Medicine Work Phone: Comment on above: PATIENT WAS FASTINGP ERFORMED BY: AMI Popelin6370 [facility] [id number] Information: NURSE DRAW RBC (Bld) [#/Vol] 4.51 10*6/uL Normal 3.77-5.28 [facility] Internal [facility]; [facility] Work Phone: Comment on above: PATIENT WAS FASTINGP ERFORMED BY: AMI Popelin6370 [facility] [id number] Information: NURSE DRAW WBC (Bld) [#/Vol] 4.8 {x10E3/uL} Normal 3.4-10.8 [facility] Internal Medicine Work Phone: Comment on above: PATIENT WAS FASTINGP ERFORMED BY: AMI DiannaJerry PopeLalxjx9693 [facility] [id number] Information: NURSE DRAW WBC (Bld) [#/Vol] 4.8 10*3/uL Normal 3.4-10.8 [facility]; [facility] Work Phone: Comment on above: PATIENT WAS FASTINGP ERFORMED BY: AMI Popelin6370 [facility] [id number] Information: NURSE DRAW Metabolic Panel, Clarita kilgore ([id number])Ordered By: Film Waxer on 06-27-2019 Albumin [Mass/Vol] 4.5 g/dL Normal 3.6-4.8 [facility] Internal Medicine Work Phone: Comment on above: Effective July 10, 2019 Albumin reference interval will be changing to: Age Male Female 0 - 7 days 3.6 - 4.9 3.6 - 4.9 8 - 30 days 3.4 - 4.7 3.4 - 4.7 1 - 6 month 3.7 - 4.8 3.7 - 4.8 7 months - 2 years 3.9 - 5.0 3.9 - 5.0 3 - 5 years 4.0 - 5.0 4.0 - 5.0 6 - 12 years 4.1 - 5.0 4.0 - 5.0 13 - 30 years 4.1 - 5.2 3.9 - 5.0 31 - 50 years 4.0 - 5.0 3.8 - 4.8 51 - 60 years 3.8 - 4.9 3.8 - 4.9 61 - 70 years 3.8 - 4.8 3.8 - 4.8 71 - 80 years 3.7 - 4.7 3.7 - 4.7 81 - 89 years 3.6 - 4.6 3.6 - 4.6 >89 years 3.5 - 4.6 3.5 - 4.6 PATIENT WAS FASTINGP ERFORMED BY: AMI SocialinusJerry Jnqhfy7316 [facility] [id number] Albumin/Globulin [Mass ratio] 2.3 {ratio} Abnormal 1.2-2.2 [facility] Work Phone: Comment on above: PATIENT WAS FASTINGP ERFORMED BY: AMI SocialinusJerry PopeZzrate9195 [facility] [id number] ALP [Catalytic activity/Vol] 67 [iU]/L Normal 39-117 [facility] Work Phone: Comment on above: PATIENT WAS FASTINGP ERFORMED BY: AMI SocialinusJerry Hwkusn5522 [facility] [id number] ALP [Catalytic activity/Vol] 67 U/L Normal 39-117 [facility]; [facility] Work Phone: Comment on above: PATIENT WAS FASTINGP ERFORMED BY: [facility] Gviyjv7191 [address] RoadDublin [place] [id number] ALT [Catalytic activity/Vol] 23 [iU]/L Normal 0-32 [facility] Work Phone: Comment on above: PATIENT WAS FASTINGP ERFORMED BY: [facility] Ypcxvc9912 [address] RoadDublin [place] [id number] ALT [Catalytic activity/Vol] 23 U/L Normal 0-32 [facility]; [facility] Work Phone: Comment on above: PATIENT WAS FASTINGP ERFORMED BY: LabSaint Luke'S HospitalCybqnb9527 Del [address] RoadDublin [place] [id number] AST [Catalytic activity/Vol] 23 [iU]/L Normal 0-40 [facility] Work Phone: Comment on above: PATIENT WAS FASTINGP ERFORMED BY: Lab[facility] Zgtsvs0906 [address] RoadDublin [place] [id number] AST [Catalytic activity/Vol] 23 U/L Normal 0-40 [facility]; [facility] Work Phone: Comment on above: PATIENT WAS FASTINGP ERFORMED BY: LabSaint Luke'S HospitalRsujjg9641 [address] RoadDublin [place] [id number] Bilirubin [Mass/Vol] 0.6 mg/dL Normal 0.0-1.2 [facility] Work Phone: Comment on above: PATIENT WAS FASTINGP ERFORMED BY: [facility] Pxwwar4167 [address] RoadDublin [place] [id number] Calcium [Mass/Vol] 9.5 mg/dL Normal 8.7-10.3 [facility] Internal Medicine Work Phone: Comment on above: PATIENT WAS FASTINGP ERFORMED BY: [facility] Tzzhoa2130 [address] RoadDublin [place] [id number] Chloride [Moles/Vol] 106 mmol/L Normal 96-106 [facility] Work Phone: Comment on above: PATIENT WAS FASTINGP ERFORMED BY: CB [facility] Htvhim7709 [address] RoadDublin [place] [id number] CO2 [Moles/Vol] 25 mmol/L Normal 20-29 [facility] Internal Medicine Work Phone: Comment on above: PATIENT WAS FASTINGP ERFORMED BY: CB [facility] Okpfnl6699 [address] RoadDublin [place] [id number] Creatinine [Mass/Vol] 1.04 mg/dL Abnormal 0.57-1.00 [facility] Internal Medicine Work Phone: Comment on above: PATIENT WAS FASTINGP ERFORMED BY: CB [facility] Mdvwmg9513 [address] RoadDublin [place] [id number] GFR/1.73 sq M predicted among blacks CKD-EPI (S/P/Bld) [Vol rate/Area] 65 mL/min/1.73 Normal [facility] Work Phone: Comment on above: PATIENT WAS FASTINGP ERFORMED BY: CB [facility] Tmcdec9687 [address] RoadDublin [place] [id number] GFR/1.73 sq M predicted among non-blacks CKD-EPI (S/P/Bld) [Vol rate/Area] 57 mL/min/1.73 Abnormal [facility] Work Phone: Comment on above: PATIENT WAS FASTINGP ERFORMED BY: CB [facility] Viwzqs5815 [address] RoadDublin [place] [id number] Globulin (S) [Mass/Vol] 2.0 g/dL Normal 1.5-4.5 [facility] Internal Medicine Work Phone: Comment on above: PATIENT WAS FASTINGP ERFORMED BY: CB [facility] Chdkxw9343 [address] RoadDublin [place] [id number] Glucose [Mass/Vol] 79 mg/dL Normal 65-99 [facility] Internal Medicine Work Phone: Comment on above: PATIENT WAS FASTINGP ERFORMED BY: CB [facility] Fvtvai6441 [address] RoadDublin [place] [id number] Potassium [Moles/Vol] 4.1 mmol/L Normal 3.5-5.2 [facility] Work Phone: Comment on above: PATIENT WAS FASTINGP ERFORMED BY: AMI [facility] Lwjlij7017 [address] RoadDublin [place] [id number] Protein [Mass/Vol] 6.5 g/dL Normal 6.0-8.5 [facility] Internal Medicine Work Phone: Comment on above: PATIENT WAS FASTINGP ERFORMED BY: CB [facility] Yjxhdq5730 Del [address] RoadDublin [place] [id number] Sodium [Moles/Vol] 145 mmol/L Abnormal 134-144 [facility] Internal [facility] Work Phone: Comment on above: PATIENT WAS FASTINGP ERFORMED BY: AMI [facility] Awvsfj4825 [address] Valle RoadDublin [place] [id number] Urea nitrogen [Mass/Vol] 25 mg/dL Normal 8-27 [facility] Work Phone: Comment on above: PATIENT WAS FASTINGP ERFORMED BY: AMI [facility] Cnhdwf5754 [address] Valle RoadDublin [place] [id number] Urea nitrogen/Creatinine [Mass ratio] 24 mg/mg Normal 12-28 [facility] Work Phone: Comment on above: PATIENT WAS FASTINGP ERFORMED BY: AMI [facility] Tjuykq8736 [address] Valle RoadDublin [place] [id number] URINALYSIS ([id number])Ordered By : Film Waxer on 06-27-2019 Appearance (U) Clear Normal Comprehens k[facility] Internal Medicine Work Phone: Comment on above: PATIENT WAS FASTINGP ERFORMED BY: [facility] Pglhfy8416 [address] Valle RoadDublin [place] [id number] Bilirubin Ql (U) Negative Normal Comprehe nsive Internal Medicine Work Phone: Comment on above: PATIENT WAS FASTINGP ERFORMED BY: AMI [facility] Uecotl5075 [address]le RoadDublin [place] [id number] Bilirubin Ql (U) Negative Normal Comprehe nsive Internal Medicine; [facility] Work Phone: Comment on above: PATIENT WAS FASTINGP ERFORMED BY: AMI Popelin6370 [address] RoadDublin [place] [id number] Color (U) Yellow Normal [facility] Work Phone: Comment on above: PATIENT WAS FASTINGP ERFORMED BY: AMI Campos6370 [address] RoadDublin [place] [id number] Glucose Ql (U) Negative Normal Comprehens [facility] Work Phone: Comment on above: PATIENT WAS FASTINGP ERFORMED BY: AMI Popelin6370 [address] RoadDublin [place] [id number] Glucose Ql (U) Negative Normal Comprehens [facility]; [facility] Work Phone: Comment on above: PATIENT WAS FASTINGP ERFORMED BY: AMI Campos6370 [address] RoadDublin [place] [id number] Hemoglobin Ql (U) 2+ Abnormal Compreh ensive Internal Medicine Work Phone: Comment on above: PATIENT WAS FASTINGP ERFORMED BY: AMI Campos6370 [address] RoadDublin [place] [id number] Ketones Ql (U) Negative Normal Comprehens [facility] Work Phone: Comment on above: PATIENT WAS FASTINGP ERFORMED BY: AMI Campos6370 [address] RoadDublin [place] [id number] Ketones Ql (U) Negative Normal Comprehens [facility]; [facility] Work Phone: Comment on above: PATIENT WAS FASTINGP ERFORMED BY: AMI Popelin6370 [address] RoadDublin [place] [id number] Leukocyte esterase Test strip Ql (U) Negative Normal [facility] Work Phone: Comment on above: PATIENT WAS FASTINGP ERFORMED BY: AMI Popelin6370 [address] RoadDublin [place] [id number] Leukocyte esterase Test strip Ql (U) Negative Normal [facility]; [facility] Work Phone: Comment on above: PATIENT WAS FASTINGP ERFORMED BY: CB [facility] Eakhsn2365 [address] Valle RoadDublin [place] [id number] Microscopic observation LM Nom (Urine sed) See below: Normal [facility] Work Phone: Comment on above: Microscopic was irais cated and was performed. PATIENT WAS FASTINGP ERFORMED BY: AMI [facility] Uzrqtd9591 [address] RoadDublin [place] [id number] Nitrite Ql (U) Negative Normal Comprehens [facility] Work Phone: Comment on above: PATIENT WAS FASTINGP ERFORMED BY: AMI [facility] Cikfdc1455 [address] RoadDublin [place] [id number] Nitrite Ql (U) Negative Normal Comprehens [facility]; [facility] Work Phone: Comment on above: PATIENT WAS FASTINGP ERFORMED BY: [facility] Lzbrqe5500 [address] RoadDublin [place] [id number] pH (U) 6.0 [pH] Normal 5.0-7.5 [facility] Work Phone: Comment on above: PATIENT WAS FASTINGP ERFORMED BY: [facility] Rxjlwn3067 [address] RoadDublin [place] [id number] Protein Ql (U) Negative Normal Comprehens k[facility] Medicine Work Phone: Comment on above: PATIENT WAS FASTINGP ERFORMED BY: [facility] Jitaox9779 [address] RoadDublin [place] [id number] Protein Ql (U) Negative Normal Comprehens k[facility]; [facility] Work Phone: Comment on above: PATIENT WAS FASTINGP ERFORMED BY: [facility] Zfpxll7564 [address] RoadDublin [place] [id number] Specific gravity (U) [Rel density] 1.019 1 Normal 1.005-1.03 0 [facility] Work Phone: Comment on above: PATIENT WAS FASTINGP ERFORMED BY: [facility] Rumrws0261 [address] RoadDublin [place] [id number] Urobilinogen (U) [Mass/Vol] 0.2 mg/dL Normal 0.2-1.0 [facility]; [facility] Work Phone: Comment on above: PATIENT WAS FASTINGP ERFORMED BY: AMI [facility] Ckkuzi7479 [address] RoadDublin [place] [id number] Urobilinogen Test strip (U) [Mass/Vol] 0.2 mg/dL Normal 0.2-1.0 [facility] Work Phone: Comment on above: PATIENT WAS FASTINGP ERFORMED BY: CB [facility] Nxjwbc6096 [address] RoadDublin [place] [id number] LIPID PANEL ([id number])Ordered B y: Film Waxer on 01-04-2019 Cholesterol [Mass/Vol] 218 mg/dL Abnormal 100-199 [facility] Work Phone: Comment on above: PATIENT WAS FASTINGP ERFORMED BY: CB [facility] Tgwhqi2137 [address] RoadDublin [place] [id number]; fu 01-13-19 db Cholesterol in HDL [Mass/Vol] 79 mg/dL Normal [facility] Work Phone: Comment on above: PATIENT WAS FASTINGP ERFORMED BY: CB [facility] Lhytoh0935 [address] RoadDublin [place] [id number]; fu 01-13-19 db Cholesterol in LDL [Mass/Vol] 126 mg/dL Abnormal 0-99 [facility] Work Phone: Comment on above: PATIENT WAS FASTINGP ERFORMED BY: CB [facility] Jffdaj7133 [address] RoadDublin [place] [id number]; fu 01-13-19 db Cholesterol in LDL/Cholesterol in HDL [Mass ratio] 1.6 {ratio} Normal 0.0-3.2 [facility] Work Phone: Comment on above: LDL/HDL Ratio Men Wo men 1/2 Avg.Risk 1.0 1.5 Avg.Risk 3.6 3.2 2X Avg.Risk 6.2 5.0 3X Avg.Risk 8.0 6.1 PATIENT WAS FASTINGP ERFORMED BY: CB [facility] Zdtvwc0613 [address] RoadDublin [place] [id number]; fu 01-13-19 db Cholesterol in VLDL [Mass/Vol] 13 mg/dL Normal 5-40 [facility] Work Phone: Comment on above: PATIENT WAS FASTINGP ERFORMED BY: CB [facility] Wnqoph8605 [address] RoadDublin [place] [id number]; fu 01-13-19 db Triglyceride [Mass/Vol] 65 mg/dL Normal 0-149 [facility] Work Phone: Comment on above: PATIENT WAS FASTINGP ERFORMED BY: CB [facility] Axwcrh5145 [address] RoadDublin [place] [id number]; fu 01-13-19 db METABOLIC PANEL, COMPREHENSI VE ([id number])Ordered By: Film Waxer on 01-04-2019 Albumin [Mass/Vol] 4.4 g/dL Normal 3.6-4.8 [facility] Work Phone: Comment on above: PATIENT WAS FASTINGP ERFORMED BY: AMI [facility] Gpkjrz3037 [address] RoadDublin [place] [id number] Albumin/Globulin [Mass ratio] 2.2 {ratio} Normal 1.2-2.2 [facility] Work Phone: Comment on above: PATIENT WAS FASTINGP ERFORMED BY: AMI [facility] Objgqw2299 [address] RoadDublin [place] [id number] ALP [Catalytic activity/Vol] 67 [iU]/L Normal 39-117 [facility] Work Phone: Comment on above: PATIENT WAS FASTINGP ERFORMED BY: AMI [facility] Tumhts2131 [address] RoadD[place] [id number] ALP [Catalytic activity/Vol] 67 U/L Normal 39-117 [facility]; [facility] Work Phone: Comment on above: PATIENT WAS FASTINGP ERFORMED BY: CB [facility] Khjvjf9741 [address] RoadDublin [place] [id number] ALT [Catalytic activity/Vol] 23 [iU]/L Normal 0-32 [facility] Work Phone: Comment on above: PATIENT WAS FASTINGP ERFORMED BY: CB [facility] Nbnlsq0339 [address] RoadDublin [place] [id number] ALT [Catalytic activity/Vol] 23 U/L Normal 0-32 [facility]; [facility] Work Phone: Comment on above: PATIENT WAS FASTINGP ERFORMED BY: CB [facility] Aqvziy6922 [address] RoadDublin [place] [id number] AST [Catalytic activity/Vol] 24 [iU]/L Normal 0-40 [facility] Work Phone: Comment on above: PATIENT WAS FASTINGP ERFORMED BY: CB [facility] Wwhhkc5529 [address] RoadD[place] [id number] AST [Catalytic activity/Vol] 24 U/L Normal 0-40 [facility]; [facility] Work Phone: Comment on above: PATIENT WAS FASTINGP ERFORMED BY: CB [facility] Myqlty2396 [address] RoadD[place] [id number] Bilirubin [Mass/Vol] 0.5 mg/dL Normal 0.0-1.2 [facility] Internal Medicine Work Phone: Comment on above: PATIENT WAS FASTINGP ERFORMED BY: [facility] Wrhffa7451 [address] RoadDublin [place] [id number] Calcium [Mass/Vol] 9.4 mg/dL Normal 8.7-10.3 [facility] Internal Medicine Work Phone: Comment on above: PATIENT WAS FASTINGP ERFORMED BY: [facility] Sjroxt7483 [address] RoadDublin [place] [id number] Chloride [Moles/Vol] 104 mmol/L Normal 96-106 [facility] Internal Medicine Work Phone: Comment on above: PATIENT WAS FASTINGP ERFORMED BY: CB [facility] Doprwh1932 [address] RoadD[place] [id number] CO2 [Moles/Vol] 25 mmol/L Normal 20-29 [facility] Internal Medicine Work Phone: Comment on above: PATIENT WAS FASTINGP ERFORMED BY: CB [facility] Eyhkdi9582 [address] RoadD[place] [id number] Creatinine [Mass/Vol] 0.94 mg/dL Normal 0.57-1.00 [facility] Internal Medicine Work Phone: Comment on above: PATIENT WAS FASTINGP ERFORMED BY: CB [facility] Yuiwnf5183 [address] RoadD[place] [id number] GFR/1.73 sq M predicted among blacks CKD-EPI (S/P/Bld) [Vol rate/Area] 74 mL/min/1.73 Normal [facility] Work Phone: Comment on above: PATIENT WAS FASTINGP ERFORMED BY: CB [facility] Tluzay4141 [address] RoadD[place] [id number] GFR/1.73 sq M predicted among non-blacks CKD-EPI (S/P/Bld) [Vol rate/Area] 64 mL/min/1.73 Normal [facility] Work Phone: Comment on above: PATIENT WAS FASTINGP ERFORMED BY: [facility] Wmtyse3563 [address] RoadD[place] [id number] Globulin (S) [Mass/Vol] 2.0 g/dL Normal 1.5-4.5 [facility] Work Phone: Comment on above: PATIENT WAS FASTINGP ERFORMED BY: [facility] Zlaznm9170 [address] RoadDublin [place] [id number] Glucose [Mass/Vol] 84 mg/dL Normal 65-99 [facility] Internal Medicine Work Phone: Comment on above: PATIENT WAS FASTINGP ERFORMED BY: [facility] Ngshtn3021 [address] RoadDublin [place] [id number] Potassium [Moles/Vol] 4.2 mmol/L Normal 3.5-5.2 [facility] Work Phone: Comment on above: PATIENT WAS FASTINGP ERFORMED BY: CB [facility] Bwtywn2028 [address] RoadD[place] [id number] Protein [Mass/Vol] 6.4 g/dL Normal 6.0-8.5 [facility] Internal Medicine Work Phone: Comment on above: PATIENT WAS FASTINGP ERFORMED BY: CB [facility] Vlovnc2002 [address] RoadD[place] [id number] Sodium [Moles/Vol] 144 mmol/L Normal 134-144 [facility] Work Phone: Comment on above: PATIENT WAS FASTINGP ERFORMED BY: AMI [employer] Qvkrvy4629 [facility] [id number] Urea nitrogen [Mass/Vol] 19 mg/dL Normal 8-27 [facility] Work Phone: Comment on above: PATIENT WAS FASTINGP ERFORMED BY: Row[employer] SystemsLourdes Specialty HospitalFlsqxm6532 [facility] [id number] Urea nitrogen/Creatinine [Mass ratio] 20 mg/mg Normal 12-28 [facility] Work Phone: Comment on above: PATIENT WAS FASTINGP ERFORMED BY: AMI [employer] Nretmj1279 [facility] [id number] HEPATITIS C ANTIBODY ([id number]) Ordered By: Film Waxer on 08-22-2018 HCV Ab Signal/Cutoff IA [Rel units/Vol] {ratio} Normal 0.0-0.9 [facility] Internal Medicine; [facility] Internal Medicine Work Phone: Comment on above: Negative: < 0.8 Inde terminate: 0.8 - 0.9 Positive: > 0.9 . The CDC recommends that a positive HCV antibody result be followed up with a HCV Nucleic Acid Amplification test (012497). in 6 weeks; PATIENT NOT FASTINGPERFORMED BY: [employer] Gsxxfc8919 [facility] [id number] HCV Ab Signal/Cutoff IA RelACnc {ratio} Normal 0.0-0.9 [facility] Internal Medicine Work Phone: Comment on above: Negative: < 0.8 Inde terminate: 0.8 - 0.9 Positive: > 0.9 . The CDC recommends that a positive HCV antibody result be followed up with a HCV Nucleic Acid Amplification test (662431). in 6 weeks; PATIENT NOT FASTINGPERFORMED BY: AMI Rowbot SystemsLourdes Specialty HospitalMfttlc5767 [facility] [id number] Metabolic Panel, Basic (5864 8)Ordered By: Film Waxer on 08-22-2018 Calcium mass conc 9.5 mg/dL Normal 8.7-10.3 Compreh ensive Internal Medicine Work Phone: Comment on above: in 6 weeks; PATIENT NOT FASTINGPERFORMED BY: CB [facility] Vdunvj9468 [address] RoadDublin [place] [id number] Chloride molar conc 105 mmol/L Normal 96-106 [facility] Work Phone: Comment on above: in 6 weeks; PATIENT NOT FASTINGPERFORMED BY: CB [facility] Fvcfzu9099 [address] RoadDublin [place] [id number] CO2 molar conc 26 mmol/L Normal 20-29 Comprehens kaleb Internal Medicine Work Phone: Comment on above: in 6 weeks; PATIENT NOT FASTINGPERFORMED BY: CB [facility] Tifnjr4888 [address] RoadDublin [place] [id number] Creatinine mass conc 0.96 mg/dL Normal 0.57-1.00 [facility] Work Phone: Comment on above: in 6 weeks; PATIENT NOT FASTINGPERFORMED BY: CB [facility] Udrght8442 [address] RoadDublin [place] [id number] GFR/1.73 sq M predicted among blacks CKD-EPI vol rate/area (S/P/Bld) 72 mL/min/1.73 Normal Comprehensiv e Internal Medicine Work Phone: Comment on above: in 6 weeks; PATIENT NOT FASTINGPERFORMED BY: CB [facility] Khcayl1902 [address] RoadDublin [place] [id number] GFR/1.73 sq M predicted among non-blacks CKD-EPI vol rate/area (S/P/Bld) 63 mL/min/1.73 Normal [facility] Work Phone: Comment on above: in 6 weeks; PATIENT NOT FASTINGPERFORMED BY: CB [facility] Jpwjqx8377 [address] RoadDublin [place] [id number] Glucose mass conc 77 mg/dL Normal 65-99 Compreh ensive Internal Medicine Work Phone: Comment on above: in 6 weeks; PATIENT NOT FASTINGPERFORMED BY: CB [facility] Ryibol3623 [address] RoadDublin [place] [id number] Potassium molar conc 4.1 mmol/L Normal 3.5-5.2 [facility] Work Phone: Comment on above: in 6 weeks; PATIENT NOT FASTINGPERFORMED BY: AMI [facility] Bpibli8998 [address] SiTimeUNC Health Johnston [facility] [id number] Sodium molar conc 144 mmol/L Normal 134-144 Compreh ensive Internal Medicine Work Phone: Comment on above: in 6 weeks; PATIENT NOT FASTINGPERFORMED BY: [facility] Snikog6703 [address] SiTimeUNC Health Johnston [facility] [id number] Urea nitrogen mass conc 17 mg/dL Normal 8- [facility] Work Phone: Comment on above: in 6 weeks; PATIENT NOT FASTINGPERFORMED BY: AMI [facility] Iehskw3605 [address] SiTimeUNC Health Johnston [facility] [id number] Urea nitrogen/Creatinine mass ratio 18 mg/mg Normal 12- [facility] Work Phone: Comment on above: in 6 weeks; PATIENT NOT FASTINGPERFORMED BY: [facility] Jamyjk8962 [facility] [id number] CBC WITH MANUAL DIFF ([id number]) Ordered By: Film Waxer on 06-16-2018 Basophils #/vol (Bld) 0.0 {x10E3/uL} Normal 0.0-0.2 [facility] Work Phone: Comment on above: PERFORMED BY: [employer] [address] [id number] BY: Pressy Ehpqsd1303 [address] SiTimeUNC Health [facility] [id number] Basophils (Bld) [#/Vol] 0.0 10*3/uL Normal 0.0-0.2 [facility]; [facility] Work Phone: Comment on above: PERFORMED BY: [facility] [address] [id number] BY: Pressy Erskot1763 [facility] [id number] Basophils Auto #/vol (Bld) 0.0 {x10E3/uL} Normal 0.0-0.2 [facility] Work Phone: Basophils/100 WBC (Bld) 1 % Normal [facility] Work Phone: Comment on above: PERFORMED BY: [facility] [address] [id number] BY: [employer]6370 [address] RoadDuin [place] [id number] Basophils/100 WBC Auto (Bld) 1 % Normal [facility] Work Phone: Eosinophils #/vol (Bld) 0.2 {x10E3/uL} Normal 0.0-0.4 [facility] Work Phone: Comment on above: PERFORMED BY: [facility] [address] [id number] BY: [employer]6[address] SiTimeUNC Health Johnston [facility] [id number] Eosinophils (Bld) [#/Vol] 0.2 10*3/uL Normal 0.0-0.4 [facility]; [facility] Work Phone: Comment on above: PERFORMED BY: [facility] [address] [id number] BY: [employer]70 [address] ValleThe Logo CompanyUNC Health [facility] [id number] Eosinophils Auto #/vol (Bld) 0.2 {x10E3/uL} Normal 0.0-0.4 [facility] Work Phone: Eosinophils/100 WBC (Bld) 3 % Normal [facility] Work Phone: Comment on above: PERFORMED BY: [facility] [address] [id number] BY: [employer]70 [address] SiTimeAtrium Health Steele [place] [id number] Eosinophils/100 WBC Auto (Bld) 3 % Normal [facility] Work Phone: Erythrocyte distribution width Auto Ratio (RBC) 13.5 % Normal 12.3-15.4 [facility] Work Phone: Erythrocyte distribution width Ratio (RBC) 13.5 % Normal 12.3-15.4 [facility] Work Phone: Comment on above: PERFORMED BY: [facility] [address] [id number] BY: AMI [employer]6370 [facility] [id number] Hematocrit Auto Volume Fraction (Bld) 40.7 % Normal 34.0-46.6 [facility] Work Phone: Hematocrit Volume Fraction (Bld) 40.7 % Normal 34.0-46.6 [facility] Work Phone: Comment on above: PERFORMED BY: [facility] [address] [id number] BY: [employer] Hfahpy4175 [facility] [id number] Hemoglobin mass conc (Bld) 13.3 g/dL Normal 11.1-15.9 [facility] Work Phone: Comment on above: PERFORMED BY: [facility] [address] [id number] BY: AMI [employer] Alert6370 [facility] [id number] Immature granulocytes #/vol (Bld) 0.0 {x10E3/uL} Normal 0.0-0.1 [facility] Work Phone: Comment on above: PERFORMED BY: [facility] [address] [id number] BY: [employer]6370 [facility] [id number] Immature granulocytes (Bld) [#/Vol] 0.0 10*3/uL Normal 0.0-0.1 [facility]; [facility] Work Phone: Comment on above: PERFORMED BY: [facility] [address] [id number] BY: Local Labslin6370 [facility] [id number] Immature granulocytes/100 WBC (Bld) 0 % Normal [facility] Work Phone: Comment on above: PERFORMED BY: [facility] [address] [id number] BY: AMI Rowbot Systemsadalberto PopeFkaziq0393 [facility] [id number] Lymphocytes #/vol (Bld) 2.0 {x10E3/uL} Normal 0.7-3.1 [facility] Work Phone: Comment on above: PERFORMED BY: [facility] [address] [id number] BY: AMI [employer] Nkxzhv0501 [facility] [id number] Lymphocytes (Bld) [#/Vol] 2.0 10*3/uL Normal 0.7-3.1 [facility]; [facility] Work Phone: Comment on above: PERFORMED BY: [facility] [address] [id number] BY: AMI Row[employer] Systemsadalberto PopeYwpfiu1158 [facility] [id number] Lymphocytes Auto #/vol (Bld) 2.0 {x10E3/uL} Normal 0.7-3.1 [facility] Work Phone: Lymphocytes/100 WBC (Bld) 42 % Normal [facility] Work Phone: Comment on above: PERFORMED BY: [facility] [address] [id number] BY: AMI [employer] Ugxtzc6893 [facility] [id number] Lymphocytes/100 WBC Auto (Bld) 42 % Normal [facility] Work Phone: MCH Auto Entitic mass (RBC) 30.0 pg Normal 26.6-33.0 [facility] Work Phone: MCH Entitic mass (RBC) 30.0 pg Normal 26.6-33.0 [facility] Work Phone: Comment on above: PERFORMED BY: [facility] [address] [id number] BY: [employer]6370 [facility] [id number] MCHC Auto mass conc (RBC) 32.7 g/dL Normal 31.5-35.7 [facility] Work Phone: MCHC mass conc (RBC) 32.7 g/dL Normal 31.5-35.7 [facility] Work Phone: Comment on above: PERFORMED BY: [facility] [address] [id number] BY: [employer] Ggypau2517 [facility] [id number] MCV Auto Entitic volume (RBC) 92 fL Normal 79-97 [facility] Work Phone: MCV Entitic volume (RBC) 92 fL Normal 79-97 [facility] Work Phone: Comment on above: PERFORMED BY: [facility] [address] [id number] BY: [employer] Crhfkx2174 [facility] [id number] Monocytes #/vol (Bld) 0.4 {x10E3/uL} Normal 0.1-0.9 [facility] Work Phone: Comment on above: PERFORMED BY: [facility] [address] [id number] BY: [employer] Alert6370 [facility] [id number] Monocytes (Bld) [#/Vol] 0.4 10*3/uL Normal 0.1-0.9 [facility]; [facility] Work Phone: Comment on above: PERFORMED BY: [facility] [address] [id number] BY: [employer] Dzydjw3581 [facility] [id number] Monocytes Auto #/vol (Bld) 0.4 {x10E3/uL} Normal 0.1-0.9 [facility] Work Phone: Monocytes/100 WBC (Bld) 8 % Normal [facility] Work Phone: Comment on above: PERFORMED BY: [facility] [address] [id number] BY: AMI Rowbot Systemsrp Wpubcl6975 [address] [facility] [id number] Monocytes/100 WBC Auto (Bld) 8 % Normal [facility] Work Phone: Neutrophils #/vol (Bld) 2.3 {x10E3/uL} Normal 1.4-7.0 [facility] Work Phone: Comment on above: PERFORMED BY: [facility] [address] [id number] BY: AMI [employer] Fdtzoj2059 [facility]leMer[facility] [id number] Neutrophils (Bld) [#/Vol] 2.3 10*3/uL Normal 1.4-7.0 [facility]; [facility] Work Phone: Comment on above: PERFORMED BY: [facility] [address] [id number] BY: AMI Row[employer] Systemsadalberto CamposBwxmum0448 [facility] [id number] Neutrophils Auto #/vol (Bld) 2.3 {x10E3/uL} Normal 1.4-7.0 [facility] Work Phone: Neutrophils/100 WBC (Bld) 46 % Normal [facility] Work Phone: Comment on above: PERFORMED BY: [facility] [address] [id number] BY: [employer] Ntinpt1842 [facility] [id number] Neutrophils/100 WBC Auto (Bld) 46 % Normal [facility] Work Phone: Platelets #/vol (Bld) 252 {x10E3/uL} Normal 150-379 [facility] Work Phone: Comment on above: PERFORMED BY: [facility] [address] [id number] BY: AMI [facility] Xhfrly5617 [address] RoadDublin [place] [id number] Platelets (Bld) [#/Vol] 252 10*3/uL Normal 150-379 [facility]; [facility] Work Phone: Comment on above: PERFORMED BY: [facility] [address] [id number] BY: AMI [facility] Cuhvlc8983 [address]le RoadDublin [place] [id number] Platelets Auto #/vol (Bld) 252 {x10E3/uL} Normal 150-379 [facility] Work Phone: RBC #/vol (Bld) 4.44 {x10E6/uL} Normal 3.77-5.28 [facility] Work Phone: Comment on above: PERFORMED BY: [facility] [address] [id number] BY: AMI [facility] Mlquht6587 [address] [facility] [id number] RBC (Bld) [#/Vol] 4.44 10*6/uL Normal 3.77-5.28 Compr ehensive Internal Medicine; [facility] Work Phone: Comment on above: PERFORMED BY: [facility] [address] [id number] BY: AMI [facility] Bdtydr2940 [address]le RoadAtrium Health [facility] [place] [id number] RBC Auto #/vol (Bld) 4.44 {x10E6/uL} Normal 3.77-5.28 [facility] Work Phone: WBC #/vol (Bld) 4.8 {x10E3/uL} Normal 3.4-10.8 Compr ensive Internal Medicine Work Phone: Comment on above: PERFORMED BY: [facility] [address] [id number] BY: [facility]I [facility] Vtcrbs3767 [address]le RoadDublin [place] [id number] WBC (Bld) [#/Vol] 4.8 10*3/uL Normal 3.4-10.8 [facility]; [facility] Work Phone: Comment on above: PERFORMED BY: [facility] [address] [id number] BY: [employer]70 [address] [facility] [id number] WBC Auto #/vol (Bld) 4.8 {x10E3/uL} Normal 3.4-10.8 [facility] Work Phone: LIPOPROTEIN, BLD, BY NMR (12 382)Ordered By: Film Waxer on 06-16-2018 Cholesterol in HDL mass conc 68 mg/dL Normal [facility] Work Phone: Comment on above: PERFORMED BY: [facility] [address] [id number] BY: [employer]70 [facility] [id number] Cholesterol in LDL mass conc 103 mg/dL Abnormal 0-99 [facility] Work Phone: Comment on above: . Optimal < 100 Abov e optimal 100 - 129 Borderline 130 - 159 High 160 - 189 Very high > 189 .LDL-C is inaccurate if patient is non-fasting. PERFORMED BY: [facility] [address] [id number] BY: [employer]6370 [facility] [id number] Cholesterol mass conc 181 mg/dL Normal 100-199 [facility] Work Phone: Comment on above: PERFORMED BY: [facility] [address] [id number] BY: [employer]70 [address] ValleThe Logo CompanyUNC Health Johnston [facility] [id number] Lipoprotein.alpha molar conc 42.5 umol/L Normal [facility] Work Phone: Comment on above: PERFORMED BY: [facility] [address] [id number] BY: [employer]70 [facility] [id number] Lipoprotein.beta.mccormick bparticle Entitic length 21.4 nm Normal [facility] Work Phone: Comment on above: INTERPRETATIVE INFORMATION PARTICLE CONCENTRATION AND SIZE <--Lower CVD Risk Higher CVD Risk--> LDL AND HDL PARTICLES Percentile in Reference Population HDL-P (total) High 75th 50th 25th Low >34.9 34.9 30.5 26.7 <26.7 . Small LDL-P Low 25th 50th 75th High <117 117 527 839 >839 . LDL Size <-Large (Pattern A)-> <-Small (Pattern B)-> 23.0 20.6 20.5 19.0 Small LDL-P and LDL Size are associated with CVD risk, but not afterLDL-P is taken into account. .These assays were developed and their performance characteristicsdetermined by [employer]. These assays have not been cleared by [employer] Food and Drug Administration. The clinical utility of theselaboratory values have not been fully established. PERFORMED BY: Waynaut[address] [id number] BY: [employer]70 [facility] [id number] Lipoprotein.beta.mccormick bparticle molar conc 1156 nmol/L Abnormal [facility] Work Phone: Comment on above: Low < 1000 Moderate 1000 - 1299 Borderline-High 1300 - 1599 High 1600 - 2000 Very High > 2000 PERFORMED BY: [facility] [address] [id number] BY: [employer] [address] Roadblin [place] [id number] Lipoprotein.beta.mccormick bparticle.small molar conc 338 nmol/L Normal [facility] Work Phone: Comment on above: PERFORMED BY: [facility] [address] [id number] BY: AMI [facility] Xaxugi6617 [address] [facility] [place] [id number] Triglyceride mass conc 52 mg/dL Normal 0-149 [facility] Work Phone: Comment on above: PERFORMED BY: [facility] [address] [id number] BY: AMI Rowbot Systemsadalberto PopeWpbgem3000 [facility] [id number] Metabolic Panel, Comprehensi ve ([id number])Ordered By: Film Waxer on 06-16-2018 Albumin mass conc 4.1 g/dL Normal 3.6-4.8 Compreh ensive Internal Medicine Work Phone: Comment on above: PERFORMED BY: [facility] [address] [id number] BY: AMI Row[employer] Systemsadalberto PopeExexhv1389 [facility] [id number] Albumin/Globulin mass ratio 2.1 {ratio} Normal 1.2-2.2 [facility] Work Phone: Comment on above: PERFORMED BY: [facility] [address] [id number] BY: AMI LabInfluxDB Xeecjh1738 [address] [facility] [id number] ALP [Catalytic activity/Vol] 64 U/L Normal 39-117 [facility]; [facility] Work Phone: Comment on above: PERFORMED BY: [facility] [address] [id number] BY: AMI [facility] Vnxogh7222 [address] [facility] [id number] ALP enzyme act/vol 64 [iU]/L Normal 39-117 Compre hensive Internal Medicine Work Phone: Comment on above: PERFORMED BY: [facility] [address] [id number] BY: AMI [facility] Buipsp2776 [address]le RoadDublin [place] [id number] ALT [Catalytic activity/Vol] 24 U/L Normal 0-32 [facility] Internal Medicine; [facility] Internal Medicine Work Phone: Comment on above: PERFORMED BY: [facility] [address] [id number] BY: AMI [facility] Jgohvl4072 [address]le RoadDublin [place] [id number] ALT enzyme act/vol 24 [iU]/L Normal 0-32 [facility] Internal Medicine Work Phone: Comment on above: PERFORMED BY: [facility] [address] [id number] BY: AMI [facility] Mlkgzu6407 [address]le RoadDublin [place] [id number] AST [Catalytic activity/Vol] 25 U/L Normal 0-40 [facility] Internal Medicine; [facility] Internal Medicine Work Phone: Comment on above: PERFORMED BY: [facility] [address] [id number] BY: AMI [facility] Ttdwjn2214 [address]le RoadDublin [place] [id number] AST enzyme act/vol 25 [iU]/L Normal 0-40 [facility] Internal Medicine Work Phone: Comment on above: PERFORMED BY: [facility] [address] [id number] BY: [facility]I [facility] Lwfqkb1877 [address]le RoadDublin [place] [id number] Bilirubin mass conc 0.5 mg/dL Normal 0.0-1.2 [facility] Internal Medicine Work Phone: Comment on above: PERFORMED BY: [facility] [address] [id number] BY: AMI [facility] Mhwjfl9482 [address]le RoadDublin [place] [id number] Calcium mass conc 9.3 mg/dL Normal 8.7-10.3 Compreh ensive Internal Medicine Work Phone: Comment on above: PERFORMED BY: [facility] [address] [id number] BY: AMI [facility] Fiipti2542 [address] RoadDublin [place] [id number] Chloride molar conc 107 mmol/L Abnormal 96-106 Compr ehensive Internal Medicine Work Phone: Comment on above: PERFORMED BY: [facility] [address] [id number] BY: AMI [facility] Oqinjv5536 [address]le RoadDublin [place] [id number] CO2 molar conc 22 mmol/L Normal 20-29 Comprehens kaleb Internal Medicine Work Phone: Comment on above: PERFORMED BY: [facility] [address] [id number] BY: AMI LabInfluxDBrp Poxlfn4163 [address] RoadDublin [place] [id number] Creatinine mass conc 0.82 mg/dL Normal 0.57-1.00 [facility] Work Phone: Comment on above: PERFORMED BY: [facility] [address] [id number] BY: AMI LabInfluxDBrp Ifigeu1266 [address]le RoadDublin [place] [id number] GFR/1.73 sq M predicted among blacks CKD-EPI vol rate/area (S/P/Bld) 87 mL/min/1.73 Normal Comprehensiv e Internal Medicine Work Phone: Comment on above: PERFORMED BY: [facility] [address] [id number] BY: AMI [employer] Yrqdaw4894 [address] RoadAtrium Health [place] [id number] GFR/1.73 sq M predicted among non-blacks CKD-EPI vol rate/area (S/P/Bld) 76 mL/min/1.73 Normal [facility] Work Phone: Comment on above: PERFORMED BY: [facility] [address] [id number] BY: AMI [facility] Ajcduv6298 [address] RoadAtrium Health [place] [id number] Globulin Calculated mass conc (S) 2.0 g/dL Normal 1.5-4.5 [facility] Work Phone: Globulin mass conc (S) 2.0 g/dL Normal 1.5-4.5 [facility] Work Phone: Comment on above: PERFORMED BY: [facility] [address] [id number] BY: AMI [facility] Ihcaey[address] [facility]in [place] [id number] Glucose mass conc 87 mg/dL Normal 65-99 Compreh ensive Internal Medicine Work Phone: Comment on above: PERFORMED BY: [facility] [address] [id number] BY: [facility] Yxdocv6479 [address] [facility] [id number] Potassium molar conc 4.0 mmol/L Normal 3.5-5.2 [facility] Work Phone: Comment on above: PERFORMED BY: [facility] [address] [id number] BY: [facility] Ddbyyb3635 [facility] [id number] Protein mass conc 6.1 g/dL Normal 6.0-8.5 Compreh ensive Internal Medicine Work Phone: Comment on above: PERFORMED BY: [facility] [address] [id number] BY: AMI [facility] Xyhdbl[address] [facility]in [place] [id number] Sodium molar conc 147 mmol/L Abnormal 134-144 Compreh ensive Internal Medicine Work Phone: Comment on above: PERFORMED BY: [facility] [address] [id number] BY: AMI [facility] Yataiv8851 [facility] [id number] Urea nitrogen mass conc 21 mg/dL Normal 8-27 [facility] Work Phone: Comment on above: PERFORMED BY: [facility] [address] [id number] BY: Rowbot Systemsrp Gpedoc3828 [address] [facility] [id number] Urea nitrogen/Creatinine mass ratio 26 mg/mg Normal 12- [facility] Work Phone: Comment on above: PERFORMED BY: [facility] [address] [id number] BY: AMI Rowbot Systemsrp Mkulcn3624 [facility] [id number] Microscopic ExaminationOrder ed By: Film Waxer on 06-16-2018 Bacteria LM.HPF #/area (Urine sed) Few Normal [facility] Work Phone: Comment on above: PERFORMED BY: [facility] [address] [id number] BY: [employer] Hckxre8299 [facility] [id number] Epithelial cells LM.HPF #/area (Urine sed) 0-10 Normal 0 - 10 [facility] Work Phone: Comment on above: PERFORMED BY: [facility] [address] [id number] BY: AMI Rowbot Systemsrp Wbamqc1614 [address] [facility] [id number] Mucus LM Ql (Urine sed) Present Normal [facility] Work Phone: Mucus Ql (Urine sed) Present Normal [facility] Work Phone: Comment on above: PERFORMED BY: [facility] [address] [id number] BY: [employer] Uadllz5502 [facility] [id number] RBC LM.HPF #/area (Urine sed) 11-30 Abnormal 0 - 2 [facility] Work Phone: Comment on above: PERFORMED BY: [facility] [address] [id number] BY: AMI [facility] Thgohk3102 [address] RoadDublin [place] [id number] WBC LM.HPF #/area (Urine sed) 0-5 Normal 0 - 5 [facility] Work Phone: Comment on above: PERFORMED BY: [facility] [address] [id number] BY: AMI [facility] Floexg2468 [address] RoadDublin [place] [id number] URINALYSIS ([id number])Ordered By : Film Waxer on 06-16-2018 Appearance Nom (U) Clear Normal Compre hensive Internal Medicine Work Phone: Comment on above: PERFORMED BY: [facility] [address] [id number] BY: AMI [facility] Ejjmga4988 [address] RoadDublin [place] [id number]; fu 07-14 has hx. of hematuria Bilirubin Ql (U) Negative Normal Comprehe nsive Internal Medicine Work Phone: Comment on above: PERFORMED BY: [facility] [address] [id number] BY: AMI [facility] Cviiob5127 [address] RoadDublin [place] [id number]; fu 07-14 has hx. of hematuria Bilirubin Ql (U) Negative Normal Comprehe nsive Internal Medicine; [facility] Work Phone: Comment on above: PERFORMED BY: [facility] [address] [id number] BY: AMI [facility] Pdmool5994 [address] RoadDublin [place] [id number]; fu 124 has hx. of hematuria Color Nom (U) Yellow Normal Comprehensi ve Internal Medicine Work Phone: Comment on above: PERFORMED BY: [facility] [address] [id number] BY: AMI [facility] Sbijpi6515 [address] RoadDublin [place] [id number]; fu 1-24 has hx. of hematuria Glucose Ql (U) Negative Normal Comprehens kaleb Internal Medicine Work Phone: Comment on above: PERFORMED BY: [facility] [address] [id number] BY: AMI [facility] Ukxykl3364 [address] RoadDublin [place] [id number]; fu 124 has hx. of hematuria Glucose Ql (U) Negative Normal Comprehens kaleb Internal Medicine; [facility] Work Phone: Comment on above: PERFORMED BY: [facility] [address] [id number] BY: [facility] Denapc6098 [address] RoadDublin [place] [id number]; fu 07-14 has hx. of hematuria Hemoglobin Ql (U) 2+ Abnormal Compreh ensive Internal Medicine Work Phone: Comment on above: PERFORMED BY: [facility] [address] [id number] BY: [facility]I [facility] Qjnttu9925 [address] RoadDublin [place] [id number]; fu 07-14 has hx. of hematuria Hemoglobin Test strip Ql (U) 2+ Abnormal [facility] Work Phone: Ketones Ql (U) Negative Normal Comprehens kaleb Internal Medicine Work Phone: Comment on above: PERFORMED BY: [facility] [address] [id number] BY: [facility]I [facility] Aadrce0970 [address] RoadDublin [place] [id number]; fu 1 has hx. of hematuria Ketones Ql (U) Negative Normal Comprehens kaleb Internal Medicine; [facility] Work Phone: Comment on above: PERFORMED BY: [facility] [address] [id number] BY: [facility]I [facility] Ysxvux4563 [address] RoadDublin [place] [id number]; fu 124 has hx. of hematuria Leukocyte esterase Test strip Ql (U) Negative Normal [facility] Work Phone: Comment on above: PERFORMED BY: [facility] [address] [id number] BY: LabInfluxDBrp Hyavww5062 [address] RoadAtrium Health [place] [id number]; fu -24 has hx. of hematuria Leukocyte esterase Test strip Ql (U) Negative Normal [facility]; [facility] Work Phone: Comment on above: PERFORMED BY: [facility] [address] [id number] BY: AMI LabNovalux Zhxbqh2560 [address] RoadAtrium Health [facility] [place] [id number]; fu 07-14 has hx. of hematuria Microscopic observation LM Nom (Urine sed) See below: Normal [facility] Work Phone: Comment on above: Microscopic was irais cated and was performed. PERFORMED BY: [facility] [address] [id number] BY: AMI [employer] Alert6370 [address] RoadAtrium Health [facility] [place] [id number]; fu 07-14 has hx. of hematuria Nitrite Ql (U) Negative Normal Comprehens kaleb Internal Medicine Work Phone: Comment on above: PERFORMED BY: [facility] [address] [id number] BY: AMI LabInfluxDBrp Vowbrs7812 [address] RoadAtrium Health [place] [id number]; fu 07-14 has hx. of hematuria Nitrite Ql (U) Negative Normal Comprehens kaleb Internal Medicine; [facility] Work Phone: Comment on above: PERFORMED BY: [facility] [address] [id number] BY: [employer] Idfmeb[address] [facility] [place] [id number]; fu 1-24 has hx. of hematuria Nitrite Test strip Ql (U) Negative Normal [facility] Work Phone: pH (U) 6.5 [pH] Normal 5.0-7.5 [facility] Work Phone: Comment on above: PERFORMED BY: [facility] [address] [id number] BY: AMI [employer] Alert6370 [address] RoadDublin [place] [id number]; fu 07-14 has hx. of hematuria pH Test strip (U) 6.5 [pH] Normal 5.0-7.5 Compreh ensive Internal Medicine Work Phone: Protein Ql (U) Negative Normal Comprehens kaleb Internal Medicine Work Phone: Comment on above: PERFORMED BY: [facility] [address] [id number] BY: [employer]70 [address] RoadDublin [place] [id number]; fu 07-14 has hx. of hematuria Protein Ql (U) Negative Normal Comprehens kaleb Internal Medicine; [facility] Work Phone: Comment on above: PERFORMED BY: [facility] [address] [id number] BY: AMI [employer] Eflxlr9594 [address] SiTimeAtrium Health [place] [id number]; fu 07-14 has hx. of hematuria Protein Test strip Ql (U) Negative Normal [facility] Work Phone: Specific gravity Relative Density (U) 1.018 1 Normal 1.005-1.03 0 [facility] Work Phone: Comment on above: PERFORMED BY: [facility] [address] [id number] BY: AMI [employer] Sfrvok6588 [address] RoadAtrium Health [place] [id number]; fu 07-14 has hx. of hematuria Urobilinogen (U) [Mass/Vol] 0.2 mg/dL Normal 0.2-1.0 [facility]; [facility] Work Phone: Comment on above: PERFORMED BY: [facility] [address] [id number] BY: [employer]70 [facility] [id number]; fu 07-14 has hx. of hematuria Urobilinogen Test strip mass conc (U) 0.2 mg/dL Normal 0.2-1.0 Comprehensiv e Internal Medicine Work Phone: Comment on above: PERFORMED BY: [facility] [address] [id number] BY: AMI [facility] Holsdo0506 [facility] [id number]; fu 07-14 has hx. of hematuria CBC with auto diff ([id number])Or dered By: Film Waxer on 06-04-2017 Basophils #/vol (Bld) 0.0 {x10E3/uL} Normal 0.0-0.2 [facility] Work Phone: Comment on above: PATIENT NOT FASTINGP ERFORMED BY: AMI [facility]Co Qdptxr8783 [facility] [id number] Information: NURSE DRAW Basophils (Bld) [#/Vol] 0.0 10*3/uL Normal 0.0-0.2 [facility]; [facility] Work Phone: Comment on above: PATIENT NOT FASTINGP ERFORMED BY: [facility]I [facility] Fqmuis7795 [facility] [id number] Information: NURSE DRAW Basophils Auto #/vol (Bld) 0.0 {x10E3/uL} Normal 0.0-0.2 [facility] Work Phone: Basophils/100 WBC (Bld) 1 % Normal [facility] Work Phone: Comment on above: PATIENT NOT FASTINGP ERFORMED BY: AMI LabCoLourdes Specialty HospitalUylxdp3913 [facility] [id number] Information: NURSE DRAW Basophils/100 WBC Auto (Bld) 1 % Normal [facility] Work Phone: Eosinophils #/vol (Bld) 0.1 {x10E3/uL} Normal 0.0-0.4 [facility] Work Phone: Comment on above: PATIENT NOT FASTINGP ERFORMED BY: [place] 1412170 [facility] [id number] Information: NURSE DRAW Eosinophils (Bld) [#/Vol] 0.1 10*3/uL Normal 0.0-0.4 [facility]; [facility] Work Phone: Comment on above: PATIENT NOT FASTINGP ERFORMED BY: [place] 1412170 [facility] [id number] Information: NURSE DRAW Eosinophils Auto #/vol (Bld) 0.1 {x10E3/uL} Normal 0.0-0.4 [facility] Work Phone: Eosinophils/100 WBC (Bld) 3 % Normal [facility] Work Phone: Comment on above: PATIENT NOT FASTINGP ERFORMED BY: AMI [place] 3660370 [facility] [id number] Information: NURSE DRAW Eosinophils/100 WBC Auto (Bld) 3 % Normal [facility] Work Phone: Erythrocyte distribution width Auto Ratio (RBC) 13.7 % Normal 12.3-15.4 [facility] Work Phone: Erythrocyte distribution width Ratio (RBC) 13.7 % Normal 12.3-15.4 [facility] Work Phone: Comment on above: PATIENT NOT FASTINGP ERFORMED BY: [place] 1412170 [facility] [id number] Information: NURSE DRAW Hematocrit Auto Volume Fraction (Bld) 39.6 % Normal 34.0-46.6 [facility] Work Phone: Hematocrit Volume Fraction (Bld) 39.6 % Normal 34.0-46.6 [facility] Work Phone: Comment on above: PATIENT NOT FASTINGP ERFORMED BY: [address] [id number] Information: NURSE DRAW Hemoglobin mass conc (Bld) 13.5 g/dL Normal 11.1-15.9 [facility] Work Phone: Comment on above: PATIENT NOT FASTINGP ERFORMED BY: AMI GuerrierJesus [place] 1892170 [facility] [id number] Information: NURSE DRAW Immature granulocytes #/vol (Bld) 0.0 {x10E3/uL} Normal 0.0-0.1 [facility] Work Phone: Comment on above: PATIENT NOT FASTINGP ERFORMED BY: [address] [id number] Information: NURSE DRAW Immature granulocytes (Bld) [#/Vol] 0.0 10*3/uL Normal 0.0-0.1 [facility]; [facility] Work Phone: Comment on above: PATIENT NOT FASTINGP ERFORMED BY: AMI Guerrier[address] [id number] Information: NURSE DRAW Immature granulocytes/100 WBC (Bld) 0 % Normal [facility] Work Phone: Comment on above: PATIENT NOT FASTINGP ERFORMED BY: [address] [id number] Information: NURSE DRAW Lymphocytes #/vol (Bld) 1.8 {x10E3/uL} Normal 0.7-3.1 [facility] Work Phone: Comment on above: PATIENT NOT FASTINGP ERFORMED BY: [address] [id number] Information: NURSE DRAW Lymphocytes (Bld) [#/Vol] 1.8 10*3/uL Normal 0.7-3.1 [facility]; [facility] Work Phone: Comment on above: PATIENT NOT FASTINGP ERFORMED BY: [address] [id number] Information: NURSE DRAW Lymphocytes Auto #/vol (Bld) 1.8 {x10E3/uL} Normal 0.7-3.1 [facility] Work Phone: Lymphocytes/100 WBC (Bld) 38 % Normal [facility] Work Phone: Comment on above: PATIENT NOT FASTINGP ERFORMED BY: AMI [place] [id number] [facility] [id number] Information: NURSE DRAW Lymphocytes/100 WBC Auto (Bld) 38 % Normal [facility] Work Phone: MCH Auto Entitic mass (RBC) 30.3 pg Normal 26.6-33.0 [facility] Work Phone: MCH Entitic mass (RBC) 30.3 pg Normal 26.6-33.0 [facility] Work Phone: Comment on above: PATIENT NOT FASTINGP ERFORMED BY: AMI [address] [id number] Information: NURSE DRAW MCHC Auto mass conc (RBC) 34.1 g/dL Normal 31.5-35.7 [facility] Work Phone: MCHC mass conc (RBC) 34.1 g/dL Normal 31.5-35.7 [facility] Work Phone: Comment on above: PATIENT NOT FASTINGP ERFORMED BY: [place] [id number] [facility] [id number] Information: NURSE DRAW MCV Auto Entitic volume (RBC) 89 fL Normal 79-97 [facility] Work Phone: MCV Entitic volume (RBC) 89 fL Normal 79-97 [facility] Work Phone: Comment on above: PATIENT NOT FASTINGP ERFORMED BY: AMI [place] [id number] [facility] [id number] Information: NURSE DRAW Monocytes #/vol (Bld) 0.4 {x10E3/uL} Normal 0.1-0.9 [facility] Work Phone: Comment on above: PATIENT NOT FASTINGP ERFORMED BY: [address] [id number] Information: NURSE DRAW Monocytes (Bld) [#/Vol] 0.4 10*3/uL Normal 0.1-0.9 [facility]; [facility] Work Phone: Comment on above: PATIENT NOT FASTINGP ERFORMED BY: AMI Min Popelin6370 [facility] [id number] Information: NURSE DRAW Monocytes Auto #/vol (Bld) 0.4 {x10E3/uL} Normal 0.1-0.9 [facility] Work Phone: Monocytes/100 WBC (Bld) 7 % Normal [facility] Work Phone: Comment on above: PATIENT NOT FASTINGP ERFORMED BY: [facility] Ihocsb0587 [facility] [id number] Information: NURSE DRAW Monocytes/100 WBC Auto (Bld) 7 % Normal [facility] Work Phone: Neutrophils #/vol (Bld) 2.4 {x10E3/uL} Normal 1.4-7.0 [facility] Work Phone: Comment on above: PATIENT NOT FASTINGP ERFORMED BY: AMI DiannaLulu Shsahp5963 [facility] [id number] Information: NURSE DRAW Neutrophils (Bld) [#/Vol] 2.4 10*3/uL Normal 1.4-7.0 [facility]; [facility] Work Phone: Comment on above: PATIENT NOT FASTINGP ERFORMED BY: AMI DiannaJohn Ville [id number] [facility] [id number] Information: NURSE DRAW Neutrophils Auto #/vol (Bld) 2.4 {x10E3/uL} Normal 1.4-7.0 [facility] Work Phone: Neutrophils/100 WBC (Bld) 51 % Normal [facility] Work Phone: Comment on above: PATIENT NOT FASTINGP ERFORMED BY: AMI DiannaJohn Ville [id number] [facility] [id number] Information: NURSE DRAW Neutrophils/100 WBC Auto (Bld) 51 % Normal [facility] Work Phone: Platelets #/vol (Bld) 259 {x10E3/uL} Normal 150-379 [facility] Work Phone: Comment on above: PATIENT NOT FASTINGP ERFORMED BY: AMI Escobar [facility] [id number] Information: NURSE DRAW Platelets (Bld) [#/Vol] 259 10*3/uL Normal 150-379 [facility]; [facility] Work Phone: Comment on above: PATIENT NOT FASTINGP ERFORMED BY: AMI Min Escobar [facility] [id number] Information: NURSE DRAW Platelets Auto #/vol (Bld) 259 {x10E3/uL} Normal 150-379 [facility] Internal Medicine Work Phone: RBC #/vol (Bld) 4.46 {x10E6/uL} Normal 3.77-5.28 [facility] Internal Medicine Work Phone: Comment on above: PATIENT NOT FASTINGP ERFORMED BY: AMI Min Popelin6370 [facility] [id number] Information: NURSE DRAW RBC (Bld) [#/Vol] 4.46 10*6/uL Normal 3.77-5.28 [facility] Internal Medicine; [facility] Internal Medicine Work Phone: Comment on above: PATIENT NOT FASTINGP ERFORMED BY: AMI Popelin6370 [facility] [id number] Information: NURSE DRAW RBC Auto #/vol (Bld) 4.46 {x10E6/uL} Normal 3.77-5.28 [facility] Internal Medicine Work Phone: WBC #/vol (Bld) 4.8 {x10E3/uL} Normal 3.4-10.8 [facility] Internal Medicine Work Phone: Comment on above: PATIENT NOT FASTINGP ERFORMED BY: AMI [address] [id number] Information: NURSE DRAW WBC (Bld) [#/Vol] 4.8 10*3/uL Normal 3.4-10.8 [facility]; [facility] Work Phone: Comment on above: PATIENT NOT FASTINGP ERFORMED BY: AMI Campos[address] [facility] [place] [id number] Information: NURSE DRAW WBC Auto #/vol (Bld) 4.8 {x10E3/uL} Normal 3.4-10.8 [facility] Work Phone: METABOLIC PANEL, COMPREHENSI VE ([id number])Ordered By: Film Waxer on 06-04-2017 Albumin mass conc 4.1 g/dL Normal 3.6-4.8 Compreh [facility] Internal Medicine Work Phone: Comment on above: PATIENT NOT FASTINGP ERFORMED BY: AMI Capmos6370 [address] [facility] [id number] Albumin/Globulin mass ratio 2.0 {ratio} Normal 1.2-2.2 [facility] Work Phone: Comment on above: PATIENT NOT FASTINGP ERFORMED BY: AMI Popelin6370 [address] [facility] [id number] ALP [Catalytic activity/Vol] 69 U/L Normal 39-117 [facility]; [facility] Work Phone: Comment on above: PATIENT NOT FASTINGP ERFORMED BY: AMI Popelin6370 [address] [facility] [id number] ALP enzyme act/vol 69 [iU]/L Normal 39-117 [facility] Internal Medicine Work Phone: Comment on above: PATIENT NOT FASTINGP ERFORMED BY: AMI [facility] Vvjfxz1216 [address] [facility] [id number] ALT [Catalytic activity/Vol] 23 U/L Normal 0-32 [facility]; [facility] Work Phone: Comment on above: PATIENT NOT FASTINGP ERFORMED BY: AMI LabCoadalberto PopeHzdlkf9588 [address] [facility] [id number] ALT enzyme act/vol 23 [iU]/L Normal 0-32 [facility] Internal Medicine Work Phone: Comment on above: PATIENT NOT FASTINGP ERFORMED BY: AMI [facility] Wtzbvn3595 [address]Dublin [place] [id number] AST [Catalytic activity/Vol] 26 U/L Normal 0-40 [facility]; [facility] Work Phone: Comment on above: PATIENT NOT FASTINGP ERFORMED BY: CB [facility] Dynyrm6681 [address] RoadDublin [place] [id number] AST enzyme act/vol 26 [iU]/L Normal 0-40 Compre [facility] Internal Medicine Work Phone: Comment on above: PATIENT NOT FASTINGP ERFORMED BY: CB [facility] Eftudt2266 [address] RoadDublin [place] [id number] Bilirubin mass conc 0.4 mg/dL Normal 0.0-1.2 Compr ensive Internal Medicine Work Phone: Comment on above: PATIENT NOT FASTINGP ERFORMED BY: AMI [facility] Livsod4385 [address] RoadDublin [place] [id number] Calcium mass conc 9.5 mg/dL Normal 8.7-10.3 Compreh [facility] Work Phone: Comment on above: PATIENT NOT FASTINGP ERFORMED BY: AMI [facility] Mxdowv7635 [address] RoadDublin [place] [id number] Chloride molar conc 103 mmol/L Normal 96-106 Compr [facility] Internal Medicine Work Phone: Comment on above: PATIENT NOT FASTINGP ERFORMED BY: AMI [facility] Sqgvoi8105 [address] RoadDublin [place] [id number] CO2 molar conc 25 mmol/L Normal 18-29 Comprehens kaleb Internal Medicine Work Phone: Comment on above: PATIENT NOT FASTINGP ERFORMED BY: CB [facility] Fcaybg2988 [address] RoadDublin [place] [id number] Creatinine mass conc 0.95 mg/dL Normal 0.57-1.00 [facility] Internal Medicine Work Phone: Comment on above: PATIENT NOT FASTINGP ERFORMED BY: AMI [facility] Wvgcav9395 [address] RoadDublin [place] [id number] GFR/1.73 sq M predicted among blacks CKD-EPI vol rate/area (S/P/Bld) 74 mL/min/1.73 Normal Comprehensiv e Internal Medicine Work Phone: Comment on above: PATIENT NOT FASTINGP ERFORMED BY: AMI Popelin[address] [facility] [place] [id number] GFR/1.73 sq M predicted among non-blacks CKD-EPI vol rate/area (S/P/Bld) 64 mL/min/1.73 Normal [facility] Work Phone: Comment on above: PATIENT NOT FASTINGP ERFORMED BY: AMI [facility] Tqsedd9663 [address] [facility] [id number] Globulin Calculated mass conc (S) 2.1 g/dL Normal 1.5-4.5 [facility] Work Phone: Globulin mass conc (S) 2.1 g/dL Normal 1.5-4.5 [facility] Work Phone: Comment on above: PATIENT NOT FASTINGP ERFORMED BY: LabLulu Pphucm0635 [facility] [id number] Glucose mass conc 83 mg/dL Normal 65-99 Compreh ensive Internal Medicine Work Phone: Comment on above: PATIENT NOT FASTINGP ERFORMED BY: AMI Fareed Wrgalm6034 [facility] [id number] Potassium molar conc 4.0 mmol/L Normal 3.5-5.2 [facility] Work Phone: Comment on above: PATIENT NOT FASTINGP ERFORMED BY: [facility] Emaarh1780 [facility] [id number] Protein mass conc 6.2 g/dL Normal 6.0-8.5 Compreh ensive Internal Medicine Work Phone: Comment on above: PATIENT NOT FASTINGP ERFORMED BY: AMI [facility] Vjxlhk5649 [address] [facility] [id number] Sodium molar conc 143 mmol/L Normal 134-144 Compreh ensive Internal Medicine Work Phone: Comment on above: PATIENT NOT FASTINGP ERFORMED BY: AMI [facility] Updxsq6874 [address]Dublin [place] [id number] Urea nitrogen mass conc 21 mg/dL Normal 8- [facility] Work Phone: Comment on above: PATIENT NOT FASTINGP ERFORMED BY: CB [facility] Budtme5015 [address]Dublin [place] [id number] Urea nitrogen/Creatinine mass ratio 22 mg/mg Normal 12- [facility] Work Phone: Comment on above: PATIENT NOT FASTINGP ERFORMED BY: CB [facility] Irpzyg6413 [address] RoadDublin [place] [id number] Microscopic ExaminationOrder ed By: Film Waxer on 06-04-2017 Bacteria LM.HPF #/area (Urine sed) Few Normal [facility] Work Phone: Comment on above: PATIENT NOT FASTINGP ERFORMED BY: [facility] Xxhjnj5741 [address] RoadDublin [place] [id number] Casts LM Nom (Urine sed) Hyaline casts Normal [facility] Work Phone: Comment on above: PATIENT NOT FASTINGP ERFORMED BY: [facility] Rypsri0228 [address] RoadDublin [place] [id number] Casts LM Ql (Urine sed) Present Abnormal [facility] Work Phone: Comment on above: PATIENT NOT FASTINGP ERFORMED BY: [facility] Illvtu7474 [address] RoadDublin [place] [id number] Epithelial cells LM.HPF #/area (Urine sed) 0-10 Normal 0 - 10 [facility] Work Phone: Comment on above: PATIENT NOT FASTINGP ERFORMED BY: CB [facility] Cvtkug6507 [address]Dublin [place] [id number] Mucus LM Ql (Urine sed) Present Normal [facility] Work Phone: Mucus Ql (Urine sed) Present Normal [facility] Work Phone: Comment on above: PATIENT NOT FASTINGP ERFORMED BY: CB [facility] Ssejpg5741 [address]Dublin [place] [id number] RBC LM.HPF #/area (Urine sed) 3-10 Abnormal 0 - 2 [facility] Work Phone: Comment on above: PATIENT NOT FASTINGP ERFORMED BY: AMI [facility] Rnyxqn5107 [address] RoadDublin [place] [id number] WBC LM.HPF #/area (Urine sed) 0-5 Normal 0 - 5 [facility] Work Phone: Comment on above: PATIENT NOT FASTINGP ERFORMED BY: AMI [facility] Fwfhbq4841 [address]Dublin [place] [id number] URINALYSIS, W/ MICRO ([id number]) Ordered By: Film Waxer on 06-04-2017 Appearance Nom (U) Clear Normal Compre hensive Internal Medicine Work Phone: Comment on above: PATIENT NOT FASTINGP ERFORMED BY: AMI [facility] Afxdwf5221 [address]Dublin [place] [id number] Bilirubin Ql (U) Negative Normal Comprehe nsive Internal Medicine Work Phone: Comment on above: PATIENT NOT FASTINGP ERFORMED BY: AMI [facility] Nycbty0316 [address]Dublin [place] [id number] Bilirubin Ql (U) Negative Normal Comprehe nsive Internal Medicine; [facility] Work Phone: Comment on above: PATIENT NOT FASTINGP ERFORMED BY: AMI [facility] Baxydt4889 [address]Dublin [place] [id number] Color Nom (U) Yellow Normal Comprehensi ve Internal Medicine Work Phone: Comment on above: PATIENT NOT FASTINGP ERFORMED BY: AMI [facility] Yffcpv0110 [address]Dublin [place] [id number] Glucose Ql (U) Negative Normal Comprehens kaleb Internal Medicine Work Phone: Comment on above: PATIENT NOT FASTINGP ERFORMED BY: AMI [facility] Zysthd9199 [address]Dublin [place] [id number] Glucose Ql (U) Negative Normal Comprehens kaleb [facility]; [facility] Work Phone: Comment on above: PATIENT NOT FASTINGP ERFORMED BY: AMI [facility] Woinnx2494 [address]Dublin [place] [id number] Hemoglobin Ql (U) 2+ Abnormal Compreh ensive Internal Medicine Work Phone: Comment on above: PATIENT NOT FASTINGP ERFORMED BY: AMI [facility] Hppqhs8498 [address]Dublin [place] [id number] Hemoglobin Test strip Ql (U) 2+ Abnormal [facility] Work Phone: Ketones Ql (U) Negative Normal Comprehens kaleb Internal Medicine Work Phone: Comment on above: PATIENT NOT FASTINGP ERFORMED BY: AMI [facility] Eouqyq9601 [address]Dublin [place] [id number] Ketones Ql (U) Negative Normal Comprehens kaleb [facility]; [facility] Work Phone: Comment on above: PATIENT NOT FASTINGP ERFORMED BY: AMI [facility] Rhlkjl2402 [address]Dublin [place] [id number] Leukocyte esterase Test strip Ql (U) Trace Abnormal [facility] Work Phone: Comment on above: PATIENT NOT FASTINGP ERFORMED BY: AMI [facility] Beqotx5972 [address]Dublin [place] [id number] Microscopic observation LM Nom (Urine sed) See below: Normal [facility] Work Phone: Comment on above: Microscopic was irais cated and was performed. PATIENT NOT FASTINGP ERFORMED BY: AMI [facility] Kqeati0685 [address] RoadDublin [place] [id number] Nitrite Ql (U) Negative Normal Comprehens kaleb [facility] Medicine Work Phone: Comment on above: PATIENT NOT FASTINGP ERFORMED BY: AMI [facility] Isglyh4647 [address]Dublin [place] [id number] Nitrite Ql (U) Negative Normal Comprehens kaleb [facility]; [facility] Work Phone: Comment on above: PATIENT NOT FASTINGP ERFORMED BY: AMI [facility] Yzbjys3516 [address]Dublin [place] [id number] Nitrite Test strip Ql (U) Negative Normal [facility] Work Phone: pH (U) 7.5 [pH] Normal 5.0-7.5 [facility] Work Phone: Comment on above: PATIENT NOT FASTINGP ERFORMED BY: AMI LabJerry Campos6370 [address]Dublin [place] [id number] pH Test strip (U) 7.5 [pH] Normal 5.0-7.5 Compreh ensive Internal Medicine Work Phone: Protein Ql (U) Negative Normal Comprehens kaleb Internal Medicine Work Phone: Comment on above: PATIENT NOT FASTINGP ERFORMED BY: AMI [facility] Gktmbx2386 [address]Dublin [place] [id number] Protein Ql (U) Negative Normal Comprehens kaleb [facility]; [facility] Work Phone: Comment on above: PATIENT NOT FASTINGP ERFORMED BY: AMI LabJerry PopeHfkfhs4437 [address] RoadDublin [place] [id number] Protein Test strip Ql (U) Negative Normal [facility] Work Phone: Specific gravity Relative Density (U) 1.018 1 Normal 1.005-1.03 0 [facility] Work Phone: Comment on above: PATIENT NOT FASTINGP ERFORMED BY: AMI [facility] Kaoplf3893 [address]Dublin [place] [id number] Urobilinogen (U) [Mass/Vol] 0.2 mg/dL Normal 0.2-1.0 [facility]; [facility] Work Phone: Comment on above: PATIENT NOT FASTINGP ERFORMED BY: CB [facility] Tgrrun7334 [address]Dublin [place] [id number] Urobilinogen Test strip mass conc (U) 0.2 mg/dL Normal 0.2-1.0 Comprehensiv e Internal Medicine Work Phone: Comment on above: PATIENT NOT FASTINGP ERFORMED BY: AMI [facility] Faafve3152 [address]Dublin [place] [id number] AMYLASE ([id number])Ordered By: Marcelle fabianm Pump Assembler on 02-17-2017 Amylase enzyme act/vol 118 U/L Normal 31-124 [facility] Work Phone: Comment on above: PATIENT NOT FASTINGP ERFORMED BY: AMI LabCoadalberto CamposMfncvl7646 [facility] [id number] CBC WITH MANUAL DIFF ([id number]) Ordered By: Film Waxer on 02-17-2017 Basophils #/vol (Bld) 0.0 {x10E3/uL} Normal 0.0-0.2 [facility] Work Phone: Comment on above: PATIENT NOT FASTINGP ERFORMED BY: CB [facility] Pgnsrm4338 [facility] [id number] Basophils (Bld) [#/Vol] 0.0 10*3/uL Normal 0.0-0.2 [facility]; [facility] Work Phone: Comment on above: PATIENT NOT FASTINGP ERFORMED BY: AMI Popelin6370 [facility] [id number] Basophils Auto #/vol (Bld) 0.0 {x10E3/uL} Normal 0.0-0.2 [facility] Work Phone: Basophils/100 WBC (Bld) 1 % Normal [facility] Work Phone: Comment on above: PATIENT NOT FASTINGP ERFORMED BY: AMI Popelin6370 [facility] [id number] Basophils/100 WBC Auto (Bld) 1 % Normal [facility] Work Phone: Eosinophils #/vol (Bld) 0.1 {x10E3/uL} Normal 0.0-0.4 [facility] Work Phone: Comment on above: PATIENT NOT FASTINGP ERFORMED BY: AMI [facility] Cnhbfa2294 [facility] [id number] Eosinophils (Bld) [#/Vol] 0.1 10*3/uL Normal 0.0-0.4 [facility]; [facility] Work Phone: Comment on above: PATIENT NOT FASTINGP ERFORMED BY: CB [facility] Vfiiwc6558 [facility] [id number] Eosinophils Auto #/vol (Bld) 0.1 {x10E3/uL} Normal 0.0-0.4 [facility] Work Phone: Eosinophils/100 WBC (Bld) 2 % Normal [facility] Work Phone: Comment on above: PATIENT NOT FASTINGP ERFORMED BY: CB [facility] Ghqokn9887 [address] RoadAtrium [facility] [place] [id number] Eosinophils/100 WBC Auto (Bld) 2 % Normal [facility] Work Phone: Erythrocyte distribution width Auto Ratio (RBC) 13.8 % Normal 12.3-15.4 [facility] Work Phone: Erythrocyte distribution width Ratio (RBC) 13.8 % Normal 12.3-15.4 [facility] Work Phone: Comment on above: PATIENT NOT FASTINGP ERFORMED BY: CB [facility] Njrocv9207 [address] SiTimeUNC Health Johnston [facility] [id number] Hematocrit Auto Volume Fraction (Bld) 39.6 % Normal 34.0-46.6 [facility] Work Phone: Hematocrit Volume Fraction (Bld) 39.6 % Normal 34.0-46.6 [facility] Work Phone: Comment on above: PATIENT NOT FASTINGP ERFORMED BY: CB [facility] Lywuwf7795 [address] Adesto TechnologiesNovant Health [facility] [id number] Hemoglobin mass conc (Bld) 13.4 g/dL Normal 11.1-15.9 [facility] Work Phone: Comment on above: PATIENT NOT FASTINGP ERFORMED BY: CB [facility] Zitjaa5072 [address] SiTimeAtrium Health [place] [id number] Immature granulocytes #/vol (Bld) 0.0 {x10E3/uL} Normal 0.0-0.1 [facility] Work Phone: Comment on above: PATIENT NOT FASTINGP ERFORMED BY: CB [facility] Ncqjgo6[address] [facility]in [place] [id number] Immature granulocytes (Bld) [#/Vol] 0.0 10*3/uL Normal 0.0-0.1 [facility]; [facility] Work Phone: Comment on above: PATIENT NOT FASTINGP ERFORMED BY: AMI Min Mandujano70 [facility] [id number] Immature granulocytes/100 WBC (Bld) 0 % Normal [facility] Work Phone: Comment on above: PATIENT NOT FASTINGP ERFORMED BY: AMI Min Bcqyup5768 [address] [facility] [id number] Lymphocytes #/vol (Bld) 1.9 {x10E3/uL} Normal 0.7-3.1 [facility] Work Phone: Comment on above: PATIENT NOT FASTINGP ERFORMED BY: AMI Fareedadalberto PopeFcfgwz9795 [facility] [id number] Lymphocytes (Bld) [#/Vol] 1.9 10*3/uL Normal 0.7-3.1 [facility]; [facility] Work Phone: Comment on above: PATIENT NOT FASTINGP ERFORMED BY: AMI Fareedadalberto PopeWneftg5445 [facility] [id number] Lymphocytes Auto #/vol (Bld) 1.9 {x10E3/uL} Normal 0.7-3.1 [facility] Work Phone: Lymphocytes/100 WBC (Bld) 37 % Normal [facility] Work Phone: Comment on above: PATIENT NOT FASTINGP ERFORMED BY: AMI Fareed Ugfxxn5109 [facility] [id number] Lymphocytes/100 WBC Auto (Bld) 37 % Normal [facility] Work Phone: MCH Auto Entitic mass (RBC) 30.2 pg Normal 26.6-33.0 [facility] Work Phone: MCH Entitic mass (RBC) 30.2 pg Normal 26.6-33.0 [facility] Work Phone: Comment on above: PATIENT NOT FASTINGP ERFORMED BY: AMI LabLulu Waeiin7819 [facility] [id number] MCHC Auto mass conc (RBC) 33.8 g/dL Normal 31.5-35.7 [facility] Work Phone: MCHC mass conc (RBC) 33.8 g/dL Normal 31.5-35.7 [facility] Work Phone: Comment on above: PATIENT NOT FASTINGP ERFORMED BY: LabJohn Ville [id number] [facility] [id number] MCV Auto Entitic volume (RBC) 89 fL Normal 79-97 [facility] Work Phone: MCV Entitic volume (RBC) 89 fL Normal 79-97 [facility] Work Phone: Comment on above: PATIENT NOT FASTINGP ERFORMED BY: LabCoJesus Ville 1892170 [facility] [id number] Monocytes #/vol (Bld) 0.4 {x10E3/uL} Normal 0.1-0.9 [facility] Work Phone: Comment on above: PATIENT NOT FASTINGP ERFORMED BY: LabJohn Ville 1691870 [facility] [id number] Monocytes (Bld) [#/Vol] 0.4 10*3/uL Normal 0.1-0.9 [facility]; [facility] Work Phone: Comment on above: PATIENT NOT FASTINGP ERFORMED BY: Lab[address] [id number] Monocytes Auto #/vol (Bld) 0.4 {x10E3/uL} Normal 0.1-0.9 [facility] Work Phone: Monocytes/100 WBC (Bld) 7 % Normal [facility] Work Phone: Comment on above: PATIENT NOT FASTINGP ERFORMED BY: LabCoLourdes Specialty HospitalAefxsh9731 [facility] [id number] Monocytes/100 WBC Auto (Bld) 7 % Normal [facility] Work Phone: Neutrophils #/vol (Bld) 2.8 {x10E3/uL} Normal 1.4-7.0 [facility] Work Phone: Comment on above: PATIENT NOT FASTINGP ERFORMED BY: AMI LabCoadalberto CamposJllonq2297 [address] [facility] [place] [id number] Neutrophils (Bld) [#/Vol] 2.8 10*3/uL Normal 1.4-7.0 [facility]; [facility] Work Phone: Comment on above: PATIENT NOT FASTINGP ERFORMED BY: CB [facility] Easgzr9854 [address] RoadDuin [place] [id number] Neutrophils Auto #/vol (Bld) 2.8 {x10E3/uL} Normal 1.4-7.0 [facility] Work Phone: Neutrophils/100 WBC (Bld) 53 % Normal [facility] Work Phone: Comment on above: PATIENT NOT FASTINGP ERFORMED BY: AMI LabCoadalberto PopeCfmwxr4433 [address] [facility] [id number] Neutrophils/100 WBC Auto (Bld) 53 % Normal [facility] Work Phone: Platelets #/vol (Bld) 289 {x10E3/uL} Normal 150-379 [facility] Work Phone: Comment on above: PATIENT NOT FASTINGP ERFORMED BY: AMI Campos6370 [address] [facility] [id number] Platelets (Bld) [#/Vol] 289 10*3/uL Normal 150-379 [facility]; [facility] Work Phone: Comment on above: PATIENT NOT FASTINGP ERFORMED BY: CB [facility] Iwgulg1558 [address] RoadDublin [place] [id number] Platelets Auto #/vol (Bld) 289 {x10E3/uL} Normal 150-379 [facility] Work Phone: RBC #/vol (Bld) 4.43 {x10E6/uL} Normal 3.77-5.28 Comp rehensive Internal Medicine Work Phone: Comment on above: PATIENT NOT FASTINGP ERFORMED BY: CB [facility] Neggup2327 [address] RoadAtrium Health [facility] [place] [id number] RBC (Bld) [#/Vol] 4.43 10*6/uL Normal 3.77-5.28 [facility]; [facility] Work Phone: Comment on above: PATIENT NOT FASTINGP ERFORMED BY: AMI [facility] Jhsahi2582 [facility] [id number] RBC Auto #/vol (Bld) 4.43 {x10E6/uL} Normal 3.77-5.28 [facility] Work Phone: WBC #/vol (Bld) 5.2 {x10E3/uL} Normal 3.4-10.8 [facility] Internal Medicine Work Phone: Comment on above: PATIENT NOT FASTINGP ERFORMED BY: AMI LabCoadalberto PopePobspc1893 [facility] [id number] WBC (Bld) [#/Vol] 5.2 10*3/uL Normal 3.4-10.8 [facility]; [facility] Work Phone: Comment on above: PATIENT NOT FASTINGP ERFORMED BY: AMI LabLuluadalberto Wpbhty8741 [facility] [id number] WBC Auto #/vol (Bld) 5.2 {x10E3/uL} Normal 3.4-10.8 [facility] Work Phone: Metabolic Panel, Comprehensi ve ([id number])Ordered By: Film Waxer on 02-17-2017 Albumin mass conc 4.6 g/dL Normal 3.6-4.8 Compreh [facility] Internal Medicine Work Phone: Comment on above: PATIENT NOT FASTINGP ERFORMED BY: AMI [facility] Bxjnyy0923 [facility] [id number] Albumin/Globulin mass ratio 2.4 {ratio} Abnormal 1.2-2.2 [facility] Work Phone: Comment on above: PATIENT NOT FASTINGP ERFORMED BY: AMI [facility] Gwyofr8709 [facility] [id number] ALP [Catalytic activity/Vol] 71 U/L Normal 39-117 [facility]; [facility] Work Phone: Comment on above: PATIENT NOT FASTINGP ERFORMED BY: CB [facility] Kslcto6515 [address]le RoadDublin [place] [id number] ALP enzyme act/vol 71 [iU]/L Normal 39-117 [facility] Internal Medicine Work Phone: Comment on above: PATIENT NOT FASTINGP ERFORMED BY: CB [facility] Qhsfgj3040 [address] Valle RoadDublin [place] [id number] ALT [Catalytic activity/Vol] 22 U/L Normal 0-32 [facility]; [facility] Internal Medicine Work Phone: Comment on above: PATIENT NOT FASTINGP ERFORMED BY: CB [facility] Sbwwhv3670 [address] RoadDublin [place] [id number] ALT enzyme act/vol 22 [iU]/L Normal 0-32 [facility] Internal Medicine Work Phone: Comment on above: PATIENT NOT FASTINGP ERFORMED BY: CB [facility] Byqbmt3852 [address]le RoadDublin [place] [id number] AST [Catalytic activity/Vol] 24 U/L Normal 0-40 [facility] Internal Medicine; [facility] Internal Medicine Work Phone: Comment on above: PATIENT NOT FASTINGP ERFORMED BY: CB [facility] Xcynfj2413 [address] RoadDublin [place] [id number] AST enzyme act/vol 24 [iU]/L Normal 0-40 [facility] Internal Medicine Work Phone: Comment on above: PATIENT NOT FASTINGP ERFORMED BY: CB [facility] Thjles4223 [address] RoadDublin [place] [id number] Bilirubin mass conc 0.5 mg/dL Normal 0.0-1.2 [facility] Internal Medicine Work Phone: Comment on above: PATIENT NOT FASTINGP ERFORMED BY: CB [facility] Wugyqy8697 [address] RoadDublin [place] [id number] Calcium mass conc 9.8 mg/dL Normal 8.7-10.3 [facility] Internal Medicine Work Phone: Comment on above: PATIENT NOT FASTINGP ERFORMED BY: CB [facility] Eegcxk7013 [address] RoadDublin [place] [id number] Chloride molar conc 103 mmol/L Normal 96-106 [facility] Work Phone: Comment on above: PATIENT NOT FASTINGP ERFORMED BY: CB [facility] Ajyxsy2400 [address] RoadDublin [place] [id number] CO2 molar conc 25 mmol/L Normal 18-29 Comprehens kaleb Internal Medicine Work Phone: Comment on above: PATIENT NOT FASTINGP ERFORMED BY: CB [facility] Htjvag1394 [address] RoadDublin [place] [id number] Creatinine mass conc 0.90 mg/dL Normal 0.57-1.00 [facility] Work Phone: Comment on above: PATIENT NOT FASTINGP ERFORMED BY: CB [facility] Boyool0655 [address] RoadDublin [place] [id number] GFR/1.73 sq M predicted among blacks CKD-EPI vol rate/area (S/P/Bld) 79 mL/min/1.73 Normal Comprehensiv e Internal Medicine Work Phone: Comment on above: PATIENT NOT FASTINGP ERFORMED BY: CB [facility] Boyrtv3261 [address] RoadDublin [place] [id number] GFR/1.73 sq M predicted among non-blacks CKD-EPI vol rate/area (S/P/Bld) 68 mL/min/1.73 Normal [facility] Work Phone: Comment on above: PATIENT NOT FASTINGP ERFORMED BY: CB [facility] Gxapwn5274 [address] RoadDublin [place] [id number] Globulin Calculated mass conc (S) 1.9 g/dL Normal 1.5-4.5 [facility] Work Phone: Globulin mass conc (S) 1.9 g/dL Normal 1.5-4.5 [facility] Work Phone: Comment on above: PATIENT NOT FASTINGP ERFORMED BY: CB [facility] Kxarrb9076 [address] RoadDublin [place] [id number] Glucose mass conc 85 mg/dL Normal 65-99 Compreh ensive Internal Medicine Work Phone: Comment on above: PATIENT NOT FASTINGP ERFORMED BY: AMI Campos[address] [facility] [place] [id number] Potassium molar conc 4.3 mmol/L Normal 3.5-5.2 [facility] Work Phone: Comment on above: PATIENT NOT FASTINGP ERFORMED BY: AMI BustamanteCoadalberto CamposRgseap[address] [facility] [id number] Protein mass conc 6.5 g/dL Normal 6.0-8.5 Compreh ensive Internal Medicine Work Phone: Comment on above: PATIENT NOT FASTINGP ERFORMED BY: AMI BustamanteCoadalberto CamposZqgteq7[address] [facility] [id number] Sodium molar conc 145 mmol/L Abnormal 134-144 Compreh ensive Internal Medicine Work Phone: Comment on above: PATIENT NOT FASTINGP ERFORMED BY: AMI BustamanteCorp Wxvguc[address] [facility] [id number] Urea nitrogen mass conc 20 mg/dL Normal 8-27 [facility] Work Phone: Comment on above: PATIENT NOT FASTINGP ERFORMED BY: AMI Campos6370 [facility] [id number] Urea nitrogen/Creatinine mass ratio 22 mg/mg Normal 12-28 [facility] Work Phone: Comment on above: PATIENT NOT FASTINGP ERFORMED BY: AMI [facility] Vizylz0138 [facility] [id number] CALCIFIDIOL (28299) VIT D 25 Ordered By: Film Waxer on 12-07-2016 25-Hydroxyvitamin D2+25-Hydroxyvitami n D3 mass conc 51.6 ng/mL Normal 30.0-100.0 [facility] Work Phone: Comment on above: Vitamin D deficiency has been defined by the Loving ofMedicine and an Endocrine Society practice guideline as alevel of serum 25-OH vitamin D less than 20 ng/mL (1,2).The Endocrine Society went on to further define vitamin Dinsufficiency as a level between 21 and 29 ng/mL (2).1. IOM (Loving of Medicine). 2010. Dietary reference intakes for calcium and D. [place]: The National Academies Press.2. Norma MF, Harper ONTIVEROS, Sunshine WHEELER, et al. Evaluation, treatment, and prevention of vitamin D deficiency: an Endocrine Society clinical practice guideline. JCEM. 2010; 96(7):1911-30. PATIENT WAS FASTINGP ERFORMED BY: [employer] [facility] [id number] BY: [employer] Arts70 NTRglobalUNC Health Johnston [facility] [id number] LIPOPROTEIN, BLD, BY NMR (65 714)Ordered By: Film Waxer on 12-07-2016 Cholesterol in HDL mass conc 86 mg/dL Normal [facility] Work Phone: Comment on above: PATIENT WAS FASTINGP ERFORMED BY: fos4Xton1447 [facility] [id number] BY: [employer]70 NTRglobalUNC Health [facility] [id number] Cholesterol in LDL mass conc 86 mg/dL Normal 0-99 [facility] Work Phone: Comment on above: . Optimal < 100 Abov e optimal 100 - 129 Borderline 130 - 159 High 160 - 189 Very high > 189 .LDL-C is inaccurate if patient is non-fasting. PATIENT WAS FASTINGP ERFORMED BY: [employer] [facility] [id number] BY: [employer]70 [place] [id number] Cholesterol mass conc 187 mg/dL Normal 100-199 [facility] Work Phone: Comment on above: PATIENT WAS FASTINGP ERFORMED BY: fos4Xton1447 [facility] [id number] BY: Local Labslin[address] SiTimeAtrium Health [place] [id number] Lipoprotein.alpha molar conc 41.3 umol/L Normal [facility] Work Phone: Comment on above: PATIENT WAS FASTINGP ERFORMED BY: fos4X[address] [id number] BY: QRuso70 [facility] [id number] Lipoprotein.beta.mccormick bparticle Entitic length 21.2 nm Normal [facility] Work Phone: Comment on above: INTERPRETATIVE INFORMATION PARTICLE CONCENTRATION AND SIZE <--Lower CVD Risk Higher CVD Risk--> LDL AND HDL PARTICLES Percentile in Reference Population HDL-P (total) High 75th 50th 25th Low >34.9 34.9 30.5 26.7 <26.7 . Small LDL-P Low 25th 50th 75th High <117 117 527 839 >839 . LDL Size <-Large (Pattern A)-> <-Small (Pattern B)-> 23.0 20.6 20.5 19.0 Small LDL-P and LDL Size are associated with CVD risk, but not afterLDL-P is taken into account. .These assays were developed and their performance characteristicsdetermined by [employer]. These assays have not been cleared by [employer] Food and Drug Administration. The clinical utility of theselaboratory values have not been fully established. PATIENT WAS FASTINGP ERFORMED BY: fos4X[address] [id number] BY: [employer] Alert6370 [facility] [id number] Lipoprotein.beta.mccormick bparticle molar conc 784 nmol/L Normal [facility] Work Phone: Comment on above: Low < 1000 Moderate 1000 - 1299 Borderline-High 1300 - 1599 High 1600 - 2000 Very High > 2000 PATIENT WAS FASTINGP ERFORMED BY: [employer] [id number] BY: Rowbot SystemsLourdes Specialty HospitalWpxlhr4968 [facility] [id number] Lipoprotein.beta.mccormick bparticle.small molar conc 202 nmol/L Normal [facility] Work Phone: Comment on above: PATIENT WAS FASTINGP ERFORMED BY: [employer] [id number] BY: Rowbot SystemsJesus [place] 1892170 [facility] [id number] Triglyceride mass conc 76 mg/dL Normal 0-149 [facility] Work Phone: Comment on above: PATIENT WAS FASTINGP ERFORMED BY: [employer] [id number] BY: Rowbot SystemsJesus V[place] 1892170 [facility] [id number] TSH ([id number])Ordered By: The Poshpacker Pump Assembler on 12-07-2016 Thyrotropin Qn 1.700 {uIU/mL} Normal 0.450-4.50 0 [facility] Work Phone: Comment on above: PATIENT WAS FASTINGP ERFORMED BY: [employer] [id number] BY: Rowbot SystemsJesus [place] 1892170 [facility] [id number]; has appt on 12/17, can review at that time IGP, Aptima HPV, rfx 16/18,4 5Ordered By: Film Waxer on 06-18-2016 HPV 16+18+31+33+35+39+4 5+51+52+56+58+59+66 +68 DNA Probe+sig amp Ql (Cvx) Negative Normal [facility] Work Phone: Comment on above: This test detects fo urteen high-risk HPV types (16/18/31/33/35/39/45/51/52/56/58/59/66/68) without differentiation. Source.............C ervix;EndocervixNo. of containers..01 CYTYC Thin Prep VialPATIENT NOT FASTINGPERFORMED BY: =G [facility] Jgbdqcbsfh765 [address] [place] [id number] BY: WB LabCoDataCore SoftwareNxdetgeacy209 [address] PlazaDizko [place] [id number] Microscopic observation Other stain Nom (Unsp spec) . Normal [facility] Work Phone: Comment on above: Source.............C ervix;EndocervixNo. of containers..01 CYTYC Thin Prep VialPATIENT NOT FASTINGPERFORMED BY: =G [facility] Dvwvvhgemj524 [address] PlajesusDiz[address] [place] [id number] BY: LabTrading Block120 NimblezaDizko [place] [id number] Pathology report final diagnosis Narrative SPRCS Normal [facility] Work Phone: Comment on above: NEGATIVE FOR INTRAEP ITHELIAL LESION AND MALIGNANCY.CELLULAR CHANGES ASSOCIATED WITH ATROPHY ARE PRESENT.Satisfactory for evaluation. Endocervical and/or squamous metaplasticcells (endocervical component) are present.Z01.419Xiaokhadijah Christine, Senior Adults Director ([facility]) Source.............C ervix;EndocervixNo. of containers..01 CYTYC Thin Prep VialPATIENT NOT FASTINGPERFORMED BY: =G [facility] Bxxirbouka257 [address] PlazaCharl[place] [id number] BY: LabTrading Block120 [address] PlazaCharl[place] [id number] IGP, Aptima HPV, rfx 16/18,45 PAPSMR Normal [facility] Work Phone: Comment on above: The Pap smear is a s creening test designed to aid in the detection ofpremalignant and malignant conditions of the uterine cervix. It is not adiagnostic procedure and should not be used as the sole means of detectingcervical cancer. Both false-positive and false-negative reports do occur. .This liquid based ThinPrep(R) pap test was screened with theuse of an image guided system. Source.............C ervix;EndocervixNo. of containers..01 CYTYC Thin Prep VialPATIENT NOT FASTINGPERFORMED BY: =G [facility] Pvrbvpptcf754 [facility] HospitaljesusDizko [facility]airlesj[facility] [place] [id number] BY: WB [facility] Qieeofjqvw021 [address] PlazaDizko [facility]airlesjfk [facility] [place] [id number] Thin Prep Pap (74720)Ordered By: Film Waxer on 06-18-2016 Thin Prep Pap (18439) 30-65 Normal [facility] Work Phone: Comment on above: Source.............C ervix;EndocervixNo. of containers..01 CYTYC Thin Prep VialPATIENT NOT FASTINGPERFORMED BY: =G [facility] Qwvtvxfiey591 [facility] HospitaljesusDizko [facility]airlesjfk [facility] W [id number] BY: WB [facility] Bqxfnocmay028 [facility] [place] [id number] Information: [id number] CALCIFIDIOL (72685) VIT D 25 Ordered By: Film Waxer on 11-26-2015 25-Hydroxyvitamin D2+25-Hydroxyvitami n D3 mass conc 47.9 ng/mL Normal 30.0-100.0 [facility] Work Phone: Comment on above: Vitamin D deficiency has been defined by the Loving ofMedicine and an Endocrine Society practice guideline as alevel of serum 25-OH vitamin D less than 20 ng/mL (1,2).The Endocrine Society went on to further define vitamin Dinsufficiency as a level between 21 and 29 ng/mL (2).1. IOM (Loving of Medicine). 2010. Dietary reference intakes for calcium and D. [place]: The National Academies Press.2. Norma BLANKENSHIP, Harper ONTIVEROS, Sunshine WHEELER, et al. Evaluation, treatment, and prevention of vitamin D deficiency: an Endocrine Society clinical practice guideline. JCEM. 2010; 96(7):1911-30. PATIENT WAS FASTINGP ERFORMED BY: [facility]6370 [facility] [id number] CBC WITH MANUAL DIFF (90462) Ordered By: Film Waxer on 11-26-2015 Basophils #/vol (Bld) 0.0 {x10E3/uL} Normal 0.0-0.2 [facility] Work Phone: Comment on above: PATIENT WAS FASTINGP ERFORMED BY: [address] [id number] Information: [id number] Basophils (Bld) [#/Vol] 0.0 10*3/uL Normal 0.0-0.2 [facility]; [facility] Work Phone: Comment on above: PATIENT WAS FASTINGP ERFORMED BY: [place] 1412170 [facility] [id number] Information: [id number] Basophils Auto #/vol (Bld) 0.0 {x10E3/uL} Normal 0.0-0.2 [facility] Work Phone: Basophils/100 WBC (Bld) 1 % Normal [facility] Work Phone: Comment on above: PATIENT WAS FASTINGP ERFORMED BY: [facility]6370 [facility] [id number] Information: [id number] Basophils/100 WBC Auto (Bld) 1 % Normal [facility] Work Phone: Eosinophils #/vol (Bld) 0.1 {x10E3/uL} Normal 0.0-0.4 [facility] Work Phone: Comment on above: PATIENT WAS FASTINGP ERFORMED BY: [address] [id number] Information: [id number] Eosinophils (Bld) [#/Vol] 0.1 10*3/uL Normal 0.0-0.4 [facility]; [facility] Work Phone: Comment on above: PATIENT WAS FASTINGP ERFORMED BY: [facility]6370 [facility] [id number] Information: [id number] Eosinophils Auto #/vol (Bld) 0.1 {x10E3/uL} Normal 0.0-0.4 [facility] Work Phone: Eosinophils/100 WBC (Bld) 3 % Normal [facility] Work Phone: Comment on above: PATIENT WAS FASTINGP ERFORMED BY: [place] 1412170 [facility] [id number] Information: [id number] Eosinophils/100 WBC Auto (Bld) 3 % Normal [facility] Work Phone: Erythrocyte distribution width Auto Ratio (RBC) 13.4 % Normal 12.3-15.4 [facility] Work Phone: Erythrocyte distribution width Ratio (RBC) 13.4 % Normal 12.3-15.4 [facility] Work Phone: Comment on above: PATIENT WAS FASTINGP ERFORMED BY: [address] [id number] Information: [id number] Hematocrit Auto Volume Fraction (Bld) 39.8 % Normal 34.0-46.6 [facility] Work Phone: Hematocrit Volume Fraction (Bld) 39.8 % Normal 34.0-46.6 [facility] Work Phone: Comment on above: PATIENT WAS FASTINGP ERFORMED BY: [place] 1412170 [facility] [id number] Information: [id number] Hemoglobin mass conc (Bld) 12.9 g/dL Normal 11.1-15.9 [facility] Work Phone: Comment on above: PATIENT WAS FASTINGP ERFORMED BY: [place] 1412170 [facility] [id number] Information: [id number] Immature granulocytes #/vol (Bld) 0.0 {x10E3/uL} Normal 0.0-0.1 [facility] Work Phone: Comment on above: PATIENT WAS FASTINGP ERFORMED BY: AMI [facility]naSt[facility] Tbaaea0318 [facility] [id number] Information: [id number] Immature granulocytes (Bld) [#/Vol] 0.0 10*3/uL Normal 0.0-0.1 [facility]; [facility] Work Phone: Comment on above: PATIENT WAS FASTINGP ERFORMED BY: AMI [address] [id number] Information: [id number] Immature granulocytes/100 WBC (Bld) 0 % Normal [facility] Work Phone: Comment on above: PATIENT WAS FASTINGP ERFORMED BY: AMI [address] [id number] Information: [id number] Lymphocytes #/vol (Bld) 2.4 {x10E3/uL} Normal 0.7-3.1 [facility] Work Phone: Comment on above: PATIENT WAS FASTINGP ERFORMED BY: AMI [facility]ust[facility]Asc[facility]6370 [facility] [id number] Information: [id number] Lymphocytes (Bld) [#/Vol] 2.4 10*3/uL Normal 0.7-3.1 [facility]; [facility] Work Phone: Comment on above: PATIENT WAS FASTINGP ERFORMED BY: [place] 1412170 [facility] [id number] Information: [id number] Lymphocytes Auto #/vol (Bld) 2.4 {x10E3/uL} Normal 0.7-3.1 [facility] Work Phone: Lymphocytes/100 WBC (Bld) 45 % Normal [facility] Work Phone: Comment on above: PATIENT WAS FASTINGP ERFORMED BY: [place] 1412170 [facility] [id number] Information: [id number] Lymphocytes/100 WBC Auto (Bld) 45 % Normal [facility] Work Phone: MCH Auto Entitic mass (RBC) 29.9 pg Normal 26.6-33.0 [facility] Work Phone: MCH Entitic mass (RBC) 29.9 pg Normal 26.6-33.0 [facility] Work Phone: Comment on above: PATIENT WAS FASTINGP ERFORMED BY: [address] [id number] Information: [id number] MCHC Auto mass conc (RBC) 32.4 g/dL Normal 31.5-35.7 [facility] Work Phone: MCHC mass conc (RBC) 32.4 g/dL Normal 31.5-35.7 [facility] Work Phone: Comment on above: PATIENT WAS FASTINGP ERFORMED BY: [address] [id number] Information: [id number] MCV Auto Entitic volume (RBC) 92 fL Normal 79-97 [facility] Work Phone: MCV Entitic volume (RBC) 92 fL Normal 79-97 [facility] Work Phone: Comment on above: PATIENT WAS FASTINGP ERFORMED BY: [place] 1412170 [facility] [id number] Information: [id number] Monocytes #/vol (Bld) 0.3 {x10E3/uL} Normal 0.1-0.9 [facility] Work Phone: Comment on above: PATIENT WAS FASTINGP ERFORMED BY: [place] 1412170 [facility] [id number] Information: [id number] Monocytes (Bld) [#/Vol] 0.3 10*3/uL Normal 0.1-0.9 [facility]; [facility] Work Phone: Comment on above: PATIENT WAS FASTINGP ERFORMED BY: AMI [place] 3660370 [facility] [id number] Information: [id number] Monocytes Auto #/vol (Bld) 0.3 {x10E3/uL} Normal 0.1-0.9 [facility] Work Phone: Monocytes/100 WBC (Bld) 6 % Normal [facility] Work Phone: Comment on above: PATIENT WAS FASTINGP ERFORMED BY: AMI [facility] Aoefkk5073 [facility] [id number] Information: [id number] Monocytes/100 WBC Auto (Bld) 6 % Normal [facility] Work Phone: Neutrophils #/vol (Bld) 2.4 {x10E3/uL} Normal 1.4-7.0 [facility] Work Phone: Comment on above: PATIENT WAS FASTINGP ERFORMED BY: AMI [place] 3660370 [facility] [id number] Information: [id number] Neutrophils (Bld) [#/Vol] 2.4 10*3/uL Normal 1.4-7.0 [facility]; [facility] Work Phone: Comment on above: PATIENT WAS FASTINGP ERFORMED BY: AMI [facility]6370 [facility] [id number] Information: [id number] Neutrophils Auto #/vol (Bld) 2.4 {x10E3/uL} Normal 1.4-7.0 [facility] Work Phone: Neutrophils/100 WBC (Bld) 45 % Normal [facility] Work Phone: Comment on above: PATIENT WAS FASTINGP ERFORMED BY: AMI [place] 3660370 [facility] [id number] Information: [id number] Neutrophils/100 WBC Auto (Bld) 45 % Normal [facility] Work Phone: Platelets #/vol (Bld) 277 {x10E3/uL} Normal 150-379 [facility] Work Phone: Comment on above: PATIENT WAS FASTINGP ERFORMED BY: [place] 1412170 [facility] [id number] Information: [id number] Platelets (Bld) [#/Vol] 277 10*3/uL Normal 150-379 [facility]; [facility] Work Phone: Comment on above: PATIENT WAS FASTINGP ERFORMED BY: AMI [address] [id number] Information: [id number] Platelets Auto #/vol (Bld) 277 {x10E3/uL} Normal 150-379 [facility] Work Phone: RBC #/vol (Bld) 4.32 {x10E6/uL} Normal 3.77-5.28 [facility] Internal Medicine Work Phone: Comment on above: PATIENT WAS FASTINGP ERFORMED BY: [place] 1412170 [facility] [id number] Information: [id number] RBC (Bld) [#/Vol] 4.32 10*6/uL Normal 3.77-5.28 [facility]; [facility] Work Phone: Comment on above: PATIENT WAS FASTINGP ERFORMED BY: [facility]6370 [facility] [id number] Information: [id number] RBC Auto #/vol (Bld) 4.32 {x10E6/uL} Normal 3.77-5.28 [facility] Work Phone: WBC #/vol (Bld) 5.2 {x10E3/uL} Normal 3.4-10.8 Compr ensive Internal Medicine Work Phone: Comment on above: PATIENT WAS FASTINGP ERFORMED BY: AMI Campos6370 [facility] [id number] Information: [id number] WBC (Bld) [#/Vol] 5.2 10*3/uL Normal 3.4-10.8 [facility]; [facility] Work Phone: Comment on above: PATIENT WAS FASTINGP ERFORMED BY: AMI [facility]anteSt. [facility] Rvgktg1440 [facility] [id number] Information: [id number] WBC Auto #/vol (Bld) 5.2 {x10E3/uL} Normal 3.4-10.8 [facility] Work Phone: Lipid Panel ([id number])Ordered B y: Film Waxer on 11-26-2015 Cholesterol in HDL mass conc 79 mg/dL Normal [facility] Work Phone: Comment on above: According to ATP-III Guidelines, HDL-C >59 mg/dL is considered anegative risk factor for CHD. PATIENT WAS FASTINGP ERFORMED BY: [facility] Yljqri9721 [facility] [id number] Cholesterol in LDL mass conc 88 mg/dL Normal 0-99 [facility] Work Phone: Comment on above: PATIENT WAS FASTINGP ERFORMED BY: [facility]6370 [facility] [id number] Cholesterol in LDL/Cholesterol in HDL mass ratio 1.1 {ratio_units} Normal 0.0-3.2 [facility] Work Phone: Comment on above: LDL/HDL Ratio Men Wo men 1/2 Avg.Risk 1.0 1.5 Avg.Risk 3.6 3.2 2X Avg.Risk 6.2 5.0 3X Avg.Risk 8.0 6.1 PATIENT WAS FASTINGP ERFORMED BY: [facility]6370 [facility] [id number] Cholesterol in VLDL mass conc 9 mg/dL Normal 5-40 [facility] Work Phone: Comment on above: PATIENT WAS FASTINGP ERFORMED BY: AMI [facility] Crycjs12[address] RoadDublin [place] [id number] Cholesterol mass conc 176 mg/dL Normal 100-199 [facility] Work Phone: Comment on above: PATIENT WAS FASTINGP ERFORMED BY: AMI [facility] Eqjhzy1165 [address] RoadDublin [place] [id number] Triglyceride mass conc 44 mg/dL Normal 0-149 [facility] Work Phone: Comment on above: PATIENT WAS FASTINGP ERFORMED BY: [facility] Kzwhca1152 [address] Roadblin [place] [id number] Metabolic Panel, Comprehensi ve ([id number])Ordered By: Film Waxer on 11-26-2015 Albumin mass conc 4.2 g/dL Normal 3.6-4.8 Compreh ensive Internal Medicine Work Phone: Comment on above: PATIENT WAS FASTINGP ERFORMED BY: [facility] Uynqam[address]blin [place] [id number]; apt. 6-13 Albumin/Globulin mass ratio 2.5 {ratio} Normal 1.1-2.5 [facility] Work Phone: Comment on above: PATIENT WAS FASTINGP ERFORMED BY: [facility] Rpyouu3464 [address] Roadblin [place] [id number]; apt. 6-13 ALP [Catalytic activity/Vol] 70 U/L Normal 39-117 [facility]; [facility] Work Phone: Comment on above: PATIENT WAS FASTINGP ERFORMED BY: [facility] Vhpyvd2856 [address] RoadDublin [place] [id number]; apt. 6-13 ALP enzyme act/vol 70 [iU]/L Normal 39-117 [facility]pre [facility] Work Phone: Comment on above: PATIENT WAS FASTINGP ERFORMED BY: [facility] Krzbpv9485 [address] RoadDublin [place] [id number]; apt. 6-13 ALT [Catalytic activity/Vol] 24 U/L Normal 0-32 [facility]; [facility] Work Phone: Comment on above: PATIENT WAS FASTINGP ERFORMED BY: CB [facility] Rhgnlv8369 [address] RoadDublin [place] [id number]; apt. 6-13 ALT enzyme act/vol 24 [iU]/L Normal 0-32 [facility] Internal [facility] Work Phone: Comment on above: PATIENT WAS FASTINGP ERFORMED BY: CB [facility] Chqpyn2823 [address] RoadDublin [place] [id number]; apt. 6-13 AST [Catalytic activity/Vol] 24 U/L Normal 0-40 [facility]; [facility] Work Phone: Comment on above: PATIENT WAS FASTINGP ERFORMED BY: CB [facility] Gfiehh5538 [address] RoadDublin [place] [id number]; apt. 6-13 AST enzyme act/vol 24 [iU]/L Normal 0-40 [facility] Internal [facility] Work Phone: Comment on above: PATIENT WAS FASTINGP ERFORMED BY: CB [facility] Txdlqv5306 [address] RoadDublin [place] [id number]; apt. 6-13 Bilirubin mass conc 0.4 mg/dL Normal 0.0-1.2 [facility] Internal Medicine Work Phone: Comment on above: PATIENT WAS FASTINGP ERFORMED BY: CB [facility] Ctldbu6120 [address]Dublin [place] [id number]; apt. 6-13 Calcium mass conc 9.1 mg/dL Normal 8.7-10.3 Compreh [facility] Work Phone: Comment on above: PATIENT WAS FASTINGP ERFORMED BY: CB [facility] Vrupko0956 [address] RoadDublin [place] [id number]; apt. 6-13 Chloride molar conc 105 mmol/L Normal 97-108 [facility] Internal Medicine Work Phone: Comment on above: PATIENT WAS FASTINGP ERFORMED BY: CB [facility] Wdvmtm0753 [address] RoadDublin [place] [id number]; apt. 6-13 CO2 molar conc 23 mmol/L Normal 18-29 Comprehens kaleb Internal Medicine Work Phone: Comment on above: PATIENT WAS FASTINGP ERFORMED BY: CB [facility] Qmsavt0985 [address] RoadDublin [place] [id number]; apt. 6-13 Creatinine mass conc 0.77 mg/dL Normal 0.57-1.00 [facility] Work Phone: Comment on above: PATIENT WAS FASTINGP ERFORMED BY: CB [facility] Gossia9107 [address] RoadDublin [place] [id number]; apt. 6-13 GFR/1.73 sq M predicted among blacks CKD-EPI vol rate/area (S/P/Bld) 96 mL/min/1.73 Normal Comprehensiv e Internal Medicine Work Phone: Comment on above: PATIENT WAS FASTINGP ERFORMED BY: CB [facility] Lmccss2497 [address] RoadDublin [place] [id number]; apt. 6-13 GFR/1.73 sq M predicted among non-blacks CKD-EPI vol rate/area (S/P/Bld) 83 mL/min/1.73 Normal [facility] Work Phone: Comment on above: PATIENT WAS FASTINGP ERFORMED BY: CB [facility] Honfar3546 [address]blin [place] [id number]; apt. 6-13 Globulin Calculated mass conc (S) 1.7 g/dL Normal 1.5-4.5 [facility] Work Phone: Globulin mass conc (S) 1.7 g/dL Normal 1.5-4.5 [facility] Work Phone: Comment on above: PATIENT WAS FASTINGP ERFORMED BY: CB [facility] Qisxvr5584 [address] RoadDublin [place] [id number]; apt. 6-13 Glucose mass conc 84 mg/dL Normal 65-99 Compreh ensive Internal Medicine Work Phone: Comment on above: PATIENT WAS FASTINGP ERFORMED BY: CB [facility] Eumocr0999 [address] RoadDublin [place] [id number]; apt. 6-13 Potassium molar conc 4.4 mmol/L Normal 3.5-5.2 [facility] Work Phone: Comment on above: PATIENT WAS FASTINGP ERFORMED BY: [facility] Mmfzcc1560 [address]blin [place] [id number]; apt. 6-13 Protein mass conc 5.9 g/dL Abnormal 6.0-8.5 Compreh ensive Internal Medicine Work Phone: Comment on above: PATIENT WAS FASTINGP ERFORMED BY: CB [facility] Ayvzpl[address] [facility] [facility] [place] [id number]; apt. 6-13 Sodium molar conc 144 mmol/L Normal 134-144 Compreh ensive Internal Medicine Work Phone: Comment on above: PATIENT WAS FASTINGP ERFORMED BY: [facility] Pxamjf0738 [address] RoadOnley [place] [id number]; apt. 6-13 Urea nitrogen mass conc 17 mg/dL Normal 8-27 [facility] Work Phone: Comment on above: PATIENT WAS FASTINGP ERFORMED BY: [facility] Harorb[address] [facility]in [place] [id number]; apt. 6-13 Urea nitrogen/Creatinine mass ratio 22 mg/mg Normal 11-26 [facility] Work Phone: Comment on above: PATIENT WAS FASTINGP ERFORMED BY: [facility] Tbeyxs[address] [facility] [place] [id number]; apt. 6-13 T3, FREE (TRIDOTHYRONINE) (1 6623)Ordered By: Film Waxer on 11-26-2015 T3 free mass conc 2.6 pg/mL Normal 2.0-4.4 Compreh ensive Internal Medicine Work Phone: Comment on above: PATIENT WAS FASTINGP ERFORMED BY: [facility] Gcnlis[address] [facility] [place] [id number] T4, FREE (THYROXINE) ([id number]) Ordered By: Film Waxer on 11-26-2015 T4 free mass conc 1.30 ng/dL Normal 0.82-1.77 Compreh ensive [facility] Medicine Work Phone: Comment on above: PATIENT WAS FASTINGP ERFORMED BY: AMI [facility] Ecgyox7272 [facility] [id number] TSH (84012)Ordered By: Sahil m Pump Assembler on 11-26-2015 Thyrotropin Qn 2.730 {uIU/mL} Normal 0.450-4.50 0 [facility] Work Phone: Comment on above: PATIENT WAS FASTINGP ERFORMED BY: AMI [facility] Jbqthw7657 [facility] [id number] Lipid Panel ([id number])Ordered B y: Film Waxer on 06-11-2015 Cholesterol in HDL mass conc 75 mg/dL Normal [facility] Work Phone: Comment on above: According to ATP-III Guidelines, HDL-C >59 mg/dL is considered anegative risk factor for CHD. PATIENT WAS FASTINGP ERFORMED BY: AMI DiannaCo Dppfyi3252 [facility] [id number] Information: [id number] Cholesterol in LDL mass conc 92 mg/dL Normal 0-99 [facility] Work Phone: Comment on above: PATIENT WAS FASTINGP ERFORMED BY: AMI [facility] Sfqiae5807 [facility] [id number] Information: [id number] Cholesterol in LDL/Cholesterol in HDL mass ratio 1.2 {ratio_units} Normal 0.0-3.2 [facility] Work Phone: Comment on above: LDL/HDL Ratio Men Wo men 1/2 Avg.Risk 1.0 1.5 Avg.Risk 3.6 3.2 2X Avg.Risk 6.2 5.0 3X Avg.Risk 8.0 6.1 PATIENT WAS FASTINGP ERFORMED BY: [facility] Pwtzbz3320 [facility] [id number] Information: [id number] Cholesterol in VLDL mass conc 9 mg/dL Normal 5-40 [facility] Work Phone: Comment on above: PATIENT WAS FASTINGP ERFORMED BY: [facility] Dwlwrv2450 [facility] [id number] Information: [id number] Cholesterol mass conc 176 mg/dL Normal 100-199 [facility] Work Phone: Comment on above: PATIENT WAS FASTINGP ERFORMED BY: AMI [facility] Qfgrnx9183 [facility] [id number] Information: [id number] Triglyceride mass conc 44 mg/dL Normal 0-149 [facility] Work Phone: Comment on above: PATIENT WAS FASTINGP ERFORMED BY: LabCoLourdes Specialty HospitalIuiwsp4244 [facility] [id number] Information: [id number] TSH (THYROID STIMULATING HOR CALEB) (97090)Ordered By: Film Waxer on 06-11-2015 Thyrotropin Qn 2.100 {uIU/mL} Normal 0.450-4.50 0 [facility] Work Phone: Comment on above: PATIENT WAS FASTINGP ERFORMED BY: [facility]6370 [facility] [id number] Blood Glucose , Office (8296 2)Ordered By: Maria Elena Suarez on 04-30-2015 Glucose Glucometer molar conc (BldC) 113 1 Normal [facility] Work Phone: CALCIFEDIOL (11789)Ordered B y: Film Waxer on 04-19-2015 25-Hydroxyvitamin D2+25-Hydroxyvitami n D3 mass conc 44.7 ng/mL Normal 30.0-100.0 [facility] Work Phone: Comment on above: Vitamin D deficiency has been defined by the Loving ofMedicine and an Endocrine Society practice guideline as alevel of serum 25-OH vitamin D less than 20 ng/mL (1,2).The Endocrine Society went on to further define vitamin Dinsufficiency as a level between 21 and 29 ng/mL (2).1. IOM (Loving of Medicine). 2010. Dietary reference intakes for calcium and D. [place]: The National Academies Press.2. Norma MF, Harper [place], Sunshine WHEELER, et al. Evaluation, treatment, and prevention of vitamin D deficiency: an Endocrine Society clinical practice guideline. JCEM. 2011 Dec; 96(7):1911-30. For Nov; PATIENT WAS FASTINGPERFORMED BY: LabAsc[facility] St. [facility]6370 [facility] [id number] CBC, PLATELETS & AUT DIFF (3 2746)Ordered By: Film Waxer on 04-19-2015 Basophils #/vol (Bld) 0.0 {x10E3/uL} Normal 0.0-0.2 [facility] Work Phone: Comment on above: Nov; PATIENT WAS FAS TINGPERFORMED BY: [facility]6370 [facility] [id number] Information: [id number] Basophils (Bld) [#/Vol] 0.0 10*3/uL Normal 0.0-0.2 [facility]; [facility] Work Phone: Comment on above: Nov; PATIENT WAS FAS TINGPERFORMED BY: [facility]6370 [facility] [id number] Information: [id number] Basophils Auto #/vol (Bld) 0.0 {x10E3/uL} Normal 0.0-0.2 [facility] Work Phone: Basophils/100 WBC (Bld) 1 % Normal [facility] Work Phone: Comment on above: Nov; PATIENT WAS FAS TINGPERFORMED BY: [facility]6370 [facility] [id number] Information: 537603,[id number] Basophils/100 WBC Auto (Bld) 1 % Normal [facility] Work Phone: Eosinophils #/vol (Bld) 0.2 {x10E3/uL} Normal 0.0-0.4 [facility] Work Phone: Comment on above: Nov; PATIENT WAS FAS TINGPERFORMED BY: [facility]6370 [facility] [id number] Information: [id number] Eosinophils (Bld) [#/Vol] 0.2 10*3/uL Normal 0.0-0.4 [facility]; [facility] Work Phone: Comment on above: Nov; PATIENT WAS FAS TINGPERFORMED BY: AMI SocialinusSt. [facility] Dfsmsv9479 [facility] [id number] Information: [id number] Eosinophils Auto #/vol (Bld) 0.2 {x10E3/uL} Normal 0.0-0.4 [facility] Work Phone: Eosinophils/100 WBC (Bld) 3 % Normal [facility] Work Phone: Comment on above: Nov; PATIENT WAS FAS TINGPERFORMED BY: AMI SocialinusJerry PopeVympla4685 [facility] [id number] Information: [id number] Eosinophils/100 WBC Auto (Bld) 3 % Normal [facility] Work Phone: Erythrocyte distribution width Auto Ratio (RBC) 13.8 % Normal 12.3-15.4 [facility] Work Phone: Erythrocyte distribution width Ratio (RBC) 13.8 % Normal 12.3-15.4 [facility] Work Phone: Comment on above: Apr; PATIENT WAS FAS TINGPERFORMED BY: AMI Rowbot SystemsLourdes Specialty HospitalAbxspn1249 [facility] [id number] Information: 517196,[id number] Hematocrit Auto Volume Fraction (Bld) 41.3 % Normal 34.0-46.6 [facility] Work Phone: Hematocrit Volume Fraction (Bld) 41.3 % Normal 34.0-46.6 [facility] Work Phone: Comment on above: Apr; PATIENT WAS FAS TINGPERFORMED BY: AMI SocialinusAscension St. [facility] Hospital6370 [facility] [id number] Information: [id number] Hemoglobin mass conc (Bld) 13.4 g/dL Normal 11.1-15.9 [facility] Work Phone: Comment on above: Nov; PATIENT WAS FAS TINGPERFORMED BY: AMI [facility] Dzsknq[address] [facility] [id number] Information: [id number] Immature granulocytes #/vol (Bld) 0.0 {x10E3/uL} Normal 0.0-0.1 [facility] Work Phone: Comment on above: Nov; PATIENT WAS FAS TINGPERFORMED BY: [facility] Lpypbq3721 [facility] [id number] Information: [id number] Immature granulocytes (Bld) [#/Vol] 0.0 10*3/uL Normal 0.0-0.1 [facility]; [facility] Work Phone: Comment on above: Nov; PATIENT WAS FAS TINGPERFORMED BY: AMI [facility] Odkria6607 [facility] [id number] Information: [id number] Immature granulocytes/100 WBC (Bld) 0 % Normal [facility] Work Phone: Comment on above: Nov; PATIENT WAS FAS TINGPERFORMED BY: [facility] Hgzyzk9068 [facility] [id number] Information: [id number] Lymphocytes #/vol (Bld) 2.4 {x10E3/uL} Normal 0.7-3.1 [facility] Work Phone: Comment on above: Nov; PATIENT WAS FAS TINGPERFORMED BY: [facility] Vllywx0412 [facility] [id number] Information: [id number] Lymphocytes (Bld) [#/Vol] 2.4 10*3/uL Normal 0.7-3.1 [facility]; [facility] Work Phone: Comment on above: Nov; PATIENT WAS FAS TINGPERFORMED BY: AMI [facility] Azdwnd0128 [facility] [id number] Information: [id number],[id number] Lymphocytes Auto #/vol (Bld) 2.4 {x10E3/uL} Normal 0.7-3.1 [facility] Work Phone: Lymphocytes/100 WBC (Bld) 44 % Normal [facility] Work Phone: Comment on above: Nov; PATIENT WAS FAS TINGPERFORMED BY: Rowbot SystemsLourdes Specialty HospitalQyvinv0261 [facility] [id number] Information: [id number] Lymphocytes/100 WBC Auto (Bld) 44 % Normal [facility] Work Phone: MCH Auto Entitic mass (RBC) 29.8 pg Normal 26.6-33.0 [facility] Work Phone: MCH Entitic mass (RBC) 29.8 pg Normal 26.6-33.0 [facility] Work Phone: Comment on above: Nov; PATIENT WAS FAS TINGPERFORMED BY: [employer] Fvpuem0019 [facility] [id number] Information: 519301,[id number] MCHC Auto mass conc (RBC) 32.4 g/dL Normal 31.5-35.7 [facility] Work Phone: MCHC mass conc (RBC) 32.4 g/dL Normal 31.5-35.7 [facility] Work Phone: Comment on above: Nov; PATIENT WAS FAS TINGPERFORMED BY: Rowbot SystemsLourdes Specialty HospitalBavbja6456 [facility] [id number] Information: [id number] MCV Auto Entitic volume (RBC) 92 fL Normal 79-97 [facility] Work Phone: MCV Entitic volume (RBC) 92 fL Normal 79-97 [facility] Work Phone: Comment on above: Nov; PATIENT WAS FAS TINGPERFORMED BY: [facility] SpringfieldInfluxDBJesus [place]ille 1892170 [facility] [id number] Information: [id number] Monocytes #/vol (Bld) 0.3 {x10E3/uL} Normal 0.1-0.9 [facility] Work Phone: Comment on above: Nov; PATIENT WAS FAS TINGPERFORMED BY: AMI [facility] Mufpnn1218 [facility] [id number] Information: [id number] Monocytes (Bld) [#/Vol] 0.3 10*3/uL Normal 0.1-0.9 [facility]; [facility] Work Phone: Comment on above: Nov; PATIENT WAS FAS TINGPERFORMED BY: AMI [facility]6370 [facility] [id number] Information: [id number] Monocytes Auto #/vol (Bld) 0.3 {x10E3/uL} Normal 0.1-0.9 [facility] Work Phone: Monocytes/100 WBC (Bld) 6 % Normal [facility] Work Phone: Comment on above: Nov; PATIENT WAS FAS TINGPERFORMED BY: AMI [place] 3660370 [facility] [id number] Information: [id number],[id number] Monocytes/100 WBC Auto (Bld) 6 % Normal [facility] Work Phone: Neutrophils #/vol (Bld) 2.6 {x10E3/uL} Normal 1.4-7.0 [facility] Work Phone: Comment on above: Nov; PATIENT WAS FAS TINGPERFORMED BY: AMI [place] 3660370 [facility] [id number] Information: [id number] Neutrophils (Bld) [#/Vol] 2.6 10*3/uL Normal 1.4-7.0 [facility]; [facility] Work Phone: Comment on above: Nov; PATIENT WAS FAS TINGPERFORMED BY: AMI [facility]6370 [facility] [id number] Information: [id number] Neutrophils Auto #/vol (Bld) 2.6 {x10E3/uL} Normal 1.4-7.0 [facility] Work Phone: Neutrophils/100 WBC (Bld) 46 % Normal [facility] Work Phone: Comment on above: Nov; PATIENT WAS FAS TINGPERFORMED BY: AMI [facility] Ppywmw1894 [address] RoadAtrium Health [place] [id number] Information: [id number] Neutrophils/100 WBC Auto (Bld) 46 % Normal [facility] Work Phone: Platelets #/vol (Bld) 268 {x10E3/uL} Normal 150-379 [facility] Work Phone: Comment on above: Apr; PATIENT WAS FAS TINGPERFORMED BY: AMI LabCoadalberto PopeVeitrp35[address] [facility] [id number] Information: [id number] Platelets (Bld) [#/Vol] 268 10*3/uL Normal 150-379 [facility]; [facility] Work Phone: Comment on above: Nov; PATIENT WAS FAS TINGPERFORMED BY: AMI LabCoadalberto PopeRlcmzr[address] [facility] [id number] Information: [id number] Platelets Auto #/vol (Bld) 268 {x10E3/uL} Normal 150-379 [facility] Work Phone: RBC #/vol (Bld) 4.50 {x10E6/uL} Normal 3.77-5.28 [facility] Internal Medicine Work Phone: Comment on above: Nov; PATIENT WAS FAS TINGPERFORMED BY: AMI [facility] Zzitys[address] [facility] [id number] Information: [id number] RBC (Bld) [#/Vol] 4.50 10*6/uL Normal 3.77-5.28 [facility]; [facility] Work Phone: Comment on above: Nov; PATIENT WAS FAS TINGPERFORMED BY: AMI [facility] Jpqzff[address] [facility] [id number] Information: [id number] RBC Auto #/vol (Bld) 4.50 {x10E6/uL} Normal 3.77-5.28 [facility] Work Phone: WBC #/vol (Bld) 5.5 {x10E3/uL} Normal 3.4-10.8 Compr [facility] Internal Medicine Work Phone: Comment on above: Nov; PATIENT WAS FAS TINGPERFORMED BY: CB [facility] Ixgjvo6885 [facility] [id number] Information: [id number] WBC (Bld) [#/Vol] 5.5 10*3/uL Normal 3.4-10.8 Compre [facility] Internal Medicine; [facility] Work Phone: Comment on above: Nov; PATIENT WAS FAS TINGPERFORMED BY: [facility] Nuobwf5697 [facility] [id number] Information: [id number] WBC Auto #/vol (Bld) 5.5 {x10E3/uL} Normal 3.4-10.8 [facility] Work Phone: LIPID PANEL ([id number])Ordered B y: Film Waxer on 04-19-2015 Cholesterol in HDL mass conc 81 mg/dL Normal [facility] Work Phone: Comment on above: According to ATP-III Guidelines, HDL-C >59 mg/dL is considered anegative risk factor for CHD. Nov; PATIENT WAS FAS TINGPERFORMED BY: CB [facility] Jtxbkp5300 [facility] [id number] Cholesterol in LDL mass conc 152 mg/dL Abnormal 0-99 [facility] Work Phone: Comment on above: Please note refere nce interval change Nov; PATIENT WAS FAS TINGPERFORMED BY: CB [facility] Kkegrr7082 [facility] [id number] Cholesterol in LDL/Cholesterol in HDL mass ratio 1.9 {ratio_units} Normal 0.0-3.2 [facility] Work Phone: Comment on above: LDL/HDL Ratio Men Wo men 1/2 Avg.Risk 1.0 1.5 Avg.Risk 3.6 3.2 2X Avg.Risk 6.2 5.0 3X Avg.Risk 8.0 6.1 Nov; PATIENT WAS FAS TINGPERFORMED BY: CB [facility] Pdtimh2227 [address] RoadDublin [place] [id number] Cholesterol in VLDL mass conc 14 mg/dL Normal 5-40 [facility] Work Phone: Comment on above: Nov; PATIENT WAS FAS TINGPERFORMED BY: CB [facility] Vblykp5602 [address] RoadDublin [place] [id number] Cholesterol mass conc 247 mg/dL Abnormal 100-199 [facility] Work Phone: Comment on above: Please note refere nce interval change Nov; PATIENT WAS FAS TINGPERFORMED BY: CB [facility] Rjvlbm3450 [address] RoadDublin [place] [id number] Triglyceride mass conc 69 mg/dL Normal 0-149 [facility] Work Phone: Comment on above: Please note refere nce interval change Nov; PATIENT WAS FAS TINGPERFORMED BY: CB [facility] Uhzcay3805 [address] RoadDublin [place] [id number] TSH (THYROID STIMULATING HOR CALEB) (46349)Ordered By: Film Waxer on 04-19-2015 Thyrotropin Qn 4.830 {uIU/mL} Abnormal 0.450-4.50 0 [facility] Work Phone: Comment on above: in Apr; PATIENT WAS FASTINGPERFORMED BY: CB [facility] Ediamx7071 [address] RoadDublin [place] [id number] Blood Glucose , Office (8296 2)Ordered By: Maria Elena Suarez on 10-30-2014 Glucose Glucometer molar conc (BldC) 107 1 Normal [facility] Work Phone: Comment on above: 107 LIPID PANEL ([id number])Ordered B y: Film Waxer on 10-23-2014 Cholesterol in HDL mass conc 81 mg/dL Normal [facility] Work Phone: Comment on above: According to ATP-III Guidelines, HDL-C >59 mg/dL is considered anegative risk factor for CHD. PATIENT WAS FASTINGP ERFORMED BY: AMI aCmpos6370 [facility] [id number] Cholesterol in LDL mass conc 132 mg/dL Abnormal 0-99 [facility] Work Phone: Comment on above: PATIENT WAS FASTINGP ERFORMED BY: AMI Campos6370 [facility] [id number] Cholesterol in LDL/Cholesterol in HDL mass ratio 1.6 {ratio_units} Normal 0.0-3.2 [facility] Work Phone: Comment on above: LDL/HDL Ratio Men Wo men 1/2 Avg.Risk 1.0 1.5 Avg.Risk 3.6 3.2 2X Avg.Risk 6.2 5.0 3X Avg.Risk 8.0 6.1 PATIENT WAS FASTINGP ERFORMED BY: AMI Popelin6370 [facility] [id number] Cholesterol in VLDL mass conc 9 mg/dL Normal 5-40 [facility] Work Phone: Comment on above: PATIENT WAS FASTINGP ERFORMED BY: AMI Popelin6370 [facility] [id number] Cholesterol mass conc 222 mg/dL Abnormal 100-199 [facility] Work Phone: Comment on above: PATIENT WAS FASTINGP ERFORMED BY: AMI Campos6370 [facility] [id number] Triglyceride mass conc 44 mg/dL Normal 0-149 [facility] Work Phone: Comment on above: PATIENT WAS FASTINGP ERFORMED BY: AMI Popelin6370 [facility] [id number] METABOLIC PANEL, COMPREHENSI VE (03801)Ordered By: Film Waxer on 10-23-2014 Albumin mass conc 4.2 g/dL Normal 3.6-4.8 Compreh ensive Internal Medicine Work Phone: Comment on above: PATIENT WAS FASTINGP ERFORMED BY: [facility] Xbaogy[address] [facility] [place] [id number] Information: [id number] Albumin/Globulin mass ratio 2.3 {ratio} Normal 1.1-2.5 [facility] Work Phone: Comment on above: PATIENT WAS FASTINGP ERFORMED BY: [facility] Xuymwq3024 [facility] [id number] Information: [id number],[id number] ALP [Catalytic activity/Vol] 63 U/L Normal 39-117 [facility]; [facility] Work Phone: Comment on above: PATIENT WAS FASTINGP ERFORMED BY: [facility] Armphf4972 [facility] [id number] Information: [id number] ALP enzyme act/vol 63 [iU]/L Normal 39-117 [facility] Internal [facility] Work Phone: Comment on above: PATIENT WAS FASTINGP ERFORMED BY: [facility] Kjqlwv9425 [facility] [id number] Information: [id number],[id number] ALT [Catalytic activity/Vol] 20 U/L Normal 0-32 [facility]; [facility] Internal Medicine Work Phone: Comment on above: PATIENT WAS FASTINGP ERFORMED BY: [facility] Buyugg5712 [facility] [id number] Information: [id number],[id number] ALT enzyme act/vol 20 [iU]/L Normal 0-32 [facility] Internal Medicine Work Phone: Comment on above: PATIENT WAS FASTINGP ERFORMED BY: [facility] Solwlo6458 [facility] [place] [id number] Information: [id number],[id number] AST [Catalytic activity/Vol] 23 U/L Normal 0-40 [facility]; [facility] Internal Medicine Work Phone: Comment on above: PATIENT WAS FASTINGP ERFORMED BY: [facility] Gkacev1000 [facility] [id number] Information: [id number],[id number] AST enzyme act/vol 23 [iU]/L Normal 0-40 Compre [facility] Internal Medicine Work Phone: Comment on above: PATIENT WAS FASTINGP ERFORMED BY: [facility]6370 [facility] [id number] Information: 085655,P57543 Bilirubin mass conc 0.4 mg/dL Normal 0.0-1.2 Compr [facility] Internal Medicine Work Phone: Comment on above: PATIENT WAS FASTINGP ERFORMED BY: LabJohn Ville 1691870 [facility] [id number] Information: [id number],[id number] Calcium mass conc 9.1 mg/dL Normal 8.7-10.3 Compreh [facility] Internal Medicine Work Phone: Comment on above: PATIENT WAS FASTINGP ERFORMED BY: [place] 1412170 [facility] [id number] Information: 203278,[id number] Chloride molar conc 105 mmol/L Normal 97-108 Compr [facility] Internal Medicine Work Phone: Comment on above: PATIENT WAS FASTINGP ERFORMED BY: [facility]Asc[facility]6370 [facility] [id number] Information: 536252,T55995 CO2 molar conc 23 mmol/L Normal 18-29 [facility] Internal Medicine Work Phone: Comment on above: PATIENT WAS FASTINGP ERFORMED BY: [facility]6370 [facility] [id number] Information: 907788,[id number] Creatinine mass conc 0.94 mg/dL Normal 0.57-1.00 [facility] Internal Medicine Work Phone: Comment on above: PATIENT WAS FASTINGP ERFORMED BY: [facility]Asc[facility]6370 [facility] [id number] Information: 157309,X35533 GFR/1.73 sq M predicted among blacks CKD-EPI vol rate/area (S/P/Bld) 76 mL/min/1.73 Normal Comprehensiv e Internal Medicine Work Phone: Comment on above: PATIENT WAS FASTINGP ERFORMED BY: AMI Campos6370 [facility] [id number] Information: 013645,Y05410 GFR/1.73 sq M predicted among non-blacks CKD-EPI vol rate/area (S/P/Bld) 66 mL/min/1.73 Normal [facility] Work Phone: Comment on above: PATIENT WAS FASTINGP ERFORMED BY: AMI [facility] Gewvmk2975 [facility] [id number] Information: 248007,R56443 Globulin Calculated mass conc (S) 1.8 g/dL Normal 1.5-4.5 [facility] Work Phone: Globulin mass conc (S) 1.8 g/dL Normal 1.5-4.5 [facility] Work Phone: Comment on above: PATIENT WAS FASTINGP ERFORMED BY: [facility] Muwjpc3153 [facility] [id number] Information: 007387,R12051 Glucose mass conc 90 mg/dL Normal 65-99 Compreh ensive Internal Medicine Work Phone: Comment on above: PATIENT WAS FASTINGP ERFORMED BY: [facility]I [facility]anteSt[facility] Cmfpgt4108 [facility] [id number] Information: 020872,[id number] Potassium molar conc 4.1 mmol/L Normal 3.5-5.2 [facility] Work Phone: Comment on above: PATIENT WAS FASTINGP ERFORMED BY: AMI [facility] Imhgvl7059 [facility] [id number] Information: 948800,J19594 Protein mass conc 6.0 g/dL Normal 6.0-8.5 Compreh ensive Internal Medicine Work Phone: Comment on above: PATIENT WAS FASTINGP ERFORMED BY: AMI LabCoLourdes Specialty HospitalDxnzhy4446 [facility] [id number] Information: 116845,[id number] Sodium molar conc 143 mmol/L Normal 134-144 Compreh ensive Internal Medicine Work Phone: Comment on above: PATIENT WAS FASTINGP ERFORMED BY: AMI [facility] Pbndra9821 [facility] [id number] Information: [id number] Urea nitrogen mass conc 24 mg/dL Normal 8-27 [facility] Work Phone: Comment on above: PATIENT WAS FASTINGP ERFORMED BY: AMI LabCoLourdes Specialty HospitalHejgys7401 [facility] [id number] Information: 152290,[id number] Urea nitrogen/Creatinine mass ratio 26 mg/mg Normal 11-26 [facility] Work Phone: Comment on above: PATIENT WAS FASTINGP ERFORMED BY: AMI LabSt[facility] Apfxhn0053 [facility] [id number] Information: [id number],[id number] TSH (26069)Ordered By: Sahil m Pump Assembler on 10-23-2014 Thyrotropin Qn 3.160 {uIU/mL} Normal 0.450-4.50 0 [facility] Work Phone: Comment on above: PATIENT WAS FASTINGP ERFORMED BY: AMI LabCoLourdes Specialty HospitalCrkxci5393 [facility] [id number] Blood Glucose , Office (8296 2)Ordered By: Genet Martínez on 07-26-2014 Glucose Glucometer molar conc (BldC) 204 1 Normal [facility] Work Phone: Glucose Tolerance (6 Sp Bloo d)Ordered By: Film Waxer on 07-26-2014 Glucose 1H p 75 g glucose PO mass conc 154 mg/dL Normal 65-199 [facility] Work Phone: Comment on above: Test(s) Glucose, 3 h our called to dilcia miller on 07/27/2014 at 12:53 ESTPATIENT WAS FASTINGPERFORMED BY: AMI [facility]St[facility] Fjkkfe0402 [facility] [id number] Information: 75G GLUCOLA GIVEN Glucose 2 hours p 75 g glucose PO mass conc 66 mg/dL Normal 65-139 [facility] Work Phone: Comment on above: Test(s) Glucose, 3 h our called to dilcia on 07/27/2014 at 12:53 ESTPATIENT WAS FASTINGPERFORMED BY: AMI Campos6370 [facility] [id number] Information: 75G GLUCOLA GIVEN Glucose 3 hours p 75 g glucose PO mass conc 32 mg/dL Abnormal 65-109 [facility] Work Phone: Comment on above: Verified by repeat analysis Test(s) Glucose, 3 h our called to dilcia on 07/27/2014 at 12:53 ESTPATIENT WAS FASTINGPERFORMED BY: AMI Campos6370 [facility] [id number] Information: 75G GLUCOLA GIVEN Glucose 4 hours p 75 g glucose PO mass conc 56 mg/dL Abnormal 65-109 [facility] Work Phone: Comment on above: Test(s) Glucose, 3 h our called to dilcia on 07/27/2014 at 12:53 ESTPATIENT WAS FASTINGPERFORMED BY: AMI Campos6370 [facility] [id number] Information: 75G GLUCOLA GIVEN Glucose 5 hours p 75 g glucose PO mass conc 67 mg/dL Normal 65-109 [facility] Work Phone: Comment on above: Test(s) Glucose, 3 h our called to dilcia on 07/27/2014 at 12:53 ESTPATIENT WAS FASTINGPERFORMED BY: AMI Campos6370 [facility] [id number] Information: 75G GLUCOLA GIVEN Glucose fasting mass conc 78 mg/dL Normal 65-99 [facility] Work Phone: Comment on above: Test(s) Glucose, 3 h our called to dilcia on 07/27/2014 at 12:53 ESTPATIENT WAS FASTINGPERFORMED BY: AMI Campos6370 [facility] [id number] Information: 75G GLUCOLA GIVEN CALCIFEDIOL (02830)Ordered B y: Film Waxer on 07-23-2014 25-Hydroxyvitamin D2+25-Hydroxyvitami n D3 mass conc 27.1 ng/mL Abnormal 30.0-100.0 [facility] Work Phone: Comment on above: Vitamin D deficiency has been defined by the [facility] Cent[facility] and an Endocrine Society practice guideline as alevel of serum 25-OH vitamin D less than 20 ng/mL (1,2).The Endocrine Society went on to further define vitamin Dinsufficiency as a level between 21 and 29 ng/mL (2).1. IOM (Loving of Medicine). 2010. Dietary reference intakes for calcium and D. [place]: The National Academies Press.2. Norma MF, Harper ONTIVEROS, Sunshine WHEELER, et al. Evaluation, treatment, and prevention of vitamin D deficiency: an Endocrine Society clinical practice guideline. JCEM. 2010; 96(7):1911-30. PATIENT NOT FASTINGP ERFORMED BY: [employer]6370 [facility]globalUNC [facility] [id number] CBC, Platelets & Auto Diff ( 92343)Ordered By: Film Waxer on 07-23-2014 Basophils #/vol (Bld) 0.0 {x10E3/uL} Normal 0.0-0.2 [facility] Work Phone: Comment on above: PATIENT NOT FASTINGP ERFORMED BY: [employer] [facility] [id number] Information: 894141,[id number] Basophils (Bld) [#/Vol] 0.0 10*3/uL Normal 0.0-0.2 [facility]; [facility] Work Phone: Comment on above: PATIENT NOT FASTINGP ERFORMED BY: [employer]70 TaggsNovant Health [facility] [id number] Information: 983030,[id number] Basophils Auto #/vol (Bld) 0.0 {x10E3/uL} Normal 0.0-0.2 [facility] Work Phone: Basophils/100 WBC (Bld) 1 % Normal [facility] Work Phone: Comment on above: PATIENT NOT FASTINGP ERFORMED BY: AMI Min Popelin6370 [facility] [id number] Information: 275323,[id number] Basophils/100 WBC Auto (Bld) 1 % Normal [facility] Work Phone: Eosinophils #/vol (Bld) 0.1 {x10E3/uL} Normal 0.0-0.4 [facility] Work Phone: Comment on above: PATIENT NOT FASTINGP ERFORMED BY: AMI [address] [id number] Information: 567188,[id number] Eosinophils (Bld) [#/Vol] 0.1 10*3/uL Normal 0.0-0.4 [facility]; [facility] Work Phone: Comment on above: PATIENT NOT FASTINGP ERFORMED BY: AMI iDannaSt. Joseph Medical Center Hnilyf2667 [facility] [id number] Information: 588977,N21750 Eosinophils Auto #/vol (Bld) 0.1 {x10E3/uL} Normal 0.0-0.4 [facility] Work Phone: Eosinophils/100 WBC (Bld) 2 % Normal [facility] Work Phone: Comment on above: PATIENT NOT FASTINGP ERFORMED BY: AMI [address] [id number] Information: 489271,L65126 Eosinophils/100 WBC Auto (Bld) 2 % Normal [facility] Work Phone: Erythrocyte distribution width Auto Ratio (RBC) 13.8 % Normal 12.3-15.4 [facility] Work Phone: Erythrocyte distribution width Ratio (RBC) 13.8 % Normal 12.3-15.4 [facility] Work Phone: Comment on above: PATIENT NOT FASTINGP ERFORMED BY: [address] [id number] Information: 215583,[id number] Hematocrit Auto Volume Fraction (Bld) 39.0 % Normal 34.0-46.6 [facility] Work Phone: Hematocrit Volume Fraction (Bld) 39.0 % Normal 34.0-46.6 [facility] Work Phone: Comment on above: PATIENT NOT FASTINGP ERFORMED BY: AMI [address] [id number] Information: 341024,M03553 Hemoglobin mass conc (Bld) 13.2 g/dL Normal 11.1-15.9 [facility] Work Phone: Comment on above: PATIENT NOT FASTINGP ERFORMED BY: [address] [id number] Information: 258547,[id number] Immature granulocytes #/vol (Bld) 0.0 {x10E3/uL} Normal 0.0-0.1 [facility] Work Phone: Comment on above: PATIENT NOT FASTINGP ERFORMED BY: [address] [id number] Information: 755329,[id number] Immature granulocytes (Bld) [#/Vol] 0.0 10*3/uL Normal 0.0-0.1 [facility]; [facility] Work Phone: Comment on above: PATIENT NOT FASTINGP ERFORMED BY: [address] [id number] Information: 859841,[id number] Immature granulocytes/100 WBC (Bld) 0 % Normal [facility] Work Phone: Comment on above: PATIENT NOT FASTINGP ERFORMED BY: [address] [id number] Information: 623814,R15029 Lymphocytes #/vol (Bld) 2.5 {x10E3/uL} Normal 0.7-3.1 [facility] Work Phone: Comment on above: PATIENT NOT FASTINGP ERFORMED BY: AMI [facility]6370 [facility] [id number] Information: 672321,[id number] Lymphocytes (Bld) [#/Vol] 2.5 10*3/uL Normal 0.7-3.1 [facility]; [facility] Work Phone: Comment on above: PATIENT NOT FASTINGP ERFORMED BY: [place] 1412170 [facility] [id number] Information: 779180,Z13332 Lymphocytes Auto #/vol (Bld) 2.5 {x10E3/uL} Normal 0.7-3.1 [facility] Work Phone: Lymphocytes/100 WBC (Bld) 38 % Normal [facility] Work Phone: Comment on above: PATIENT NOT FASTINGP ERFORMED BY: [place] 1412170 [facility] [id number] Information: 680826,[id number] Lymphocytes/100 WBC Auto (Bld) 38 % Normal [facility] Work Phone: MCH Auto Entitic mass (RBC) 29.7 pg Normal 26.6-33.0 [facility] Work Phone: MCH Entitic mass (RBC) 29.7 pg Normal 26.6-33.0 [facility] Work Phone: Comment on above: PATIENT NOT FASTINGP ERFORMED BY: [facility]6370 [facility] [id number] Information: 121774,V00995 MCHC Auto mass conc (RBC) 33.8 g/dL Normal 31.5-35.7 [facility] Work Phone: MCHC mass conc (RBC) 33.8 g/dL Normal 31.5-35.7 [facility] Work Phone: Comment on above: PATIENT NOT FASTINGP ERFORMED BY: [place] 1412170 [facility] [id number] Information: 921883,Z30045 MCV Auto Entitic volume (RBC) 88 fL Normal 79-97 [facility] Work Phone: MCV Entitic volume (RBC) 88 fL Normal 79-97 [facility] Work Phone: Comment on above: PATIENT NOT FASTINGP ERFORMED BY: AMI [facility] HospitalCoJesus Ville 1892170 [facility] [id number] Information: 284044,[id number] Monocytes #/vol (Bld) 0.4 {x10E3/uL} Normal 0.1-0.9 [facility] Work Phone: Comment on above: PATIENT NOT FASTINGP ERFORMED BY: AMI LabCoadalberto [address] [id number] Information: 752377,M44632 Monocytes (Bld) [#/Vol] 0.4 10*3/uL Normal 0.1-0.9 [facility]; [facility] Work Phone: Comment on above: PATIENT NOT FASTINGP ERFORMED BY: [place] 1412170 [facility] [id number] Information: 082833,[id number] Monocytes Auto #/vol (Bld) 0.4 {x10E3/uL} Normal 0.1-0.9 [facility] Work Phone: Monocytes/100 WBC (Bld) 5 % Normal [facility] Work Phone: Comment on above: PATIENT NOT FASTINGP ERFORMED BY: LabCoJesus Ville 1892170 [facility] [id number] Information: 284093,F85855 Monocytes/100 WBC Auto (Bld) 5 % Normal [facility] Work Phone: Neutrophils #/vol (Bld) 3.5 {x10E3/uL} Normal 1.4-7.0 [facility] Work Phone: Comment on above: PATIENT NOT FASTINGP ERFORMED BY: LabCo67 Ford Streetblin [place] [id number] Information: 343752,K24508 Neutrophils (Bld) [#/Vol] 3.5 10*3/uL Normal 1.4-7.0 [facility]; [facility] Work Phone: Comment on above: PATIENT NOT FASTINGP ERFORMED BY: LabSt. [facility] Blwabo6354 [facility] [id number] Information: 597371,[id number] Neutrophils Auto #/vol (Bld) 3.5 {x10E3/uL} Normal 1.4-7.0 [facility] Work Phone: Neutrophils/100 WBC (Bld) 54 % Normal [facility] Work Phone: Comment on above: PATIENT NOT FASTINGP ERFORMED BY: DiannaCo Mfvlhz3118 [facility] [id number] Information: 946638,B44747 Neutrophils/100 WBC Auto (Bld) 54 % Normal [facility] Work Phone: Platelets #/vol (Bld) 245 {x10E3/uL} Normal 150-379 [facility] Work Phone: Comment on above: PATIENT NOT FASTINGP ERFORMED BY: AMI BustamanteCo Lbmldx7338 [facility] [id number] Information: 357122,[id number] Platelets (Bld) [#/Vol] 245 10*3/uL Normal 150-379 [facility]; [facility] Work Phone: Comment on above: PATIENT NOT FASTINGP ERFORMED BY: LabCoLourdes Specialty HospitalRlfhcf1216 [facility] [id number] Information: [id number] Platelets Auto #/vol (Bld) 245 {x10E3/uL} Normal 150-379 [facility] Work Phone: RBC #/vol (Bld) 4.44 {x10E6/uL} Normal 3.77-5.28 Comp rehensive Internal Medicine Work Phone: Comment on above: PATIENT NOT FASTINGP ERFORMED BY: AMI Guerrier Jzenaa2147 [facility] [id number] Information: 375257,[id number] RBC (Bld) [#/Vol] 4.44 10*6/uL Normal 3.77-5.28 [facility] Internal Medicine; [facility] Internal Medicine Work Phone: Comment on above: PATIENT NOT FASTINGP ERFORMED BY: AMI Guerrier Vhlaan2101 [facility] [id number] Information: 389385,P40721 RBC Auto #/vol (Bld) 4.44 {x10E6/uL} Normal 3.77-5.28 [facility] Work Phone: WBC #/vol (Bld) 6.5 {x10E3/uL} Normal 3.4-10.8 [facility] Internal Medicine Work Phone: Comment on above: PATIENT NOT FASTINGP ERFORMED BY: AMI Guerrier Pmnpqg9102 [facility] [id number] Information: 548289,[id number] WBC (Bld) [#/Vol] 6.5 10*3/uL Normal 3.4-10.8 [facility]gib[facility]; [facility] Internal Medicine Work Phone: Comment on above: PATIENT NOT FASTINGP ERFORMED BY: AMI BustamanteSt. [facility] Medical Center Bwwjfn5023 [facility] [id number] Information: 325241,[id number] WBC Auto #/vol (Bld) 6.5 {x10E3/uL} Normal 3.4-10.8 [facility] Internal Medicine Work Phone: Lipid Panel (36181)Ordered B y: Film Waxer on 06-27-2014 Cholesterol in HDL mass conc 79 mg/dL Normal [facility] Work Phone: Comment on above: According to ATP-III Guidelines, HDL-C >59 mg/dL is considered anegative risk factor for CHD. PATIENT NOT FASTINGP ERFORMED BY: LabJohn Ville 1691870 [facility] [id number] Cholesterol in LDL mass conc 150 mg/dL Abnormal 0-99 [facility] Work Phone: Comment on above: PATIENT NOT FASTINGP ERFORMED BY: AMI DiannaJerry PopeKoofqo1520 [facility] [id number] Cholesterol in LDL/Cholesterol in HDL mass ratio 1.9 {ratio_units} Normal 0.0-3.2 [facility] Work Phone: Comment on above: LDL/HDL Ratio Men Wo men 1/2 Avg.Risk 1.0 1.5 Avg.Risk 3.6 3.2 2X Avg.Risk 6.2 5.0 3X Avg.Risk 8.0 6.1 PATIENT NOT FASTINGP ERFORMED BY: AMI DiannaJerry PopeWipmix3472 [facility] [id number] Cholesterol in VLDL mass conc 15 mg/dL Normal 5-40 [facility] Work Phone: Comment on above: PATIENT NOT FASTINGP ERFORMED BY: AMI Popelin6370 [facility] [id number] Cholesterol mass conc 244 mg/dL Abnormal 100-199 [facility] Work Phone: Comment on above: PATIENT NOT FASTINGP ERFORMED BY: AMI Popelin6370 [facility] [id number] Triglyceride mass conc 77 mg/dL Normal 0-149 [facility] Work Phone: Comment on above: PATIENT NOT FASTINGP ERFORMED BY: AMI Popelin6370 [facility] [id number] Metabolic Panel, Comprehensi ve (67635)Ordered By: Film Waxer on 06-27-2014 Albumin mass conc 4.4 g/dL Normal 3.6-4.8 Compreh ensive Internal Medicine Work Phone: Comment on above: PATIENT NOT FASTINGP ERFORMED BY: AMI DiannaJerry PopeVagapk9358 [facility] [id number] Information: [id number], 129953 Albumin/Globulin mass ratio 2.1 {ratio} Normal 1.1-2.5 [facility] Work Phone: Comment on above: PATIENT NOT FASTINGP ERFORMED BY: AMI Campos6370 [facility] [id number] Information: [id number], 916414 ALP [Catalytic activity/Vol] 66 U/L Normal 39-117 [facility]; [facility] Internal Medicine Work Phone: Comment on above: PATIENT NOT FASTINGP ERFORMED BY: AMI Guerrier Wfpiwh6204 [facility] [id number] Information: [id number], [id number] ALP enzyme act/vol 66 [iU]/L Normal 39-117 [facility] Internal [facility] Work Phone: Comment on above: PATIENT NOT FASTINGP ERFORMED BY: AMI Campos6370 [facility] [id number] Information: [id number], [id number] ALT [Catalytic activity/Vol] 20 U/L Normal 0-32 [facility]; [facility] Internal Medicine Work Phone: Comment on above: PATIENT NOT FASTINGP ERFORMED BY: AMI Guerrier Vqcuiy8660 [facility] [id number] Information: Z34179, 668956 ALT enzyme act/vol 20 [iU]/L Normal 0-32 [facility] Internal [facility] Work Phone: Comment on above: PATIENT NOT FASTINGP ERFORMED BY: Fareed Fxnvkx4436 [facility] [id number] Information: [id number], [id number] AST [Catalytic activity/Vol] 22 U/L Normal 0-40 [facility] Internal Medicine; [facility] Internal Medicine Work Phone: Comment on above: PATIENT NOT FASTINGP ERFORMED BY: AMI LabCo Sndvkd4397 [facility] [id number] Information: [id number], [id number] AST enzyme act/vol 22 [iU]/L Normal 0-40 [facility] [place] Internal Medicine Work Phone: Comment on above: PATIENT NOT FASTINGP ERFORMED BY: CB LabCoLourdes Specialty HospitalXyarpo6368 [facility] [id number] Information: [id number], [id number] Bilirubin mass conc 0.4 mg/dL Normal 0.0-1.2 Compr ensive Internal Medicine Work Phone: Comment on above: PATIENT NOT FASTINGP ERFORMED BY: [facility]6370 [facility] [id number] Information: [id number], 671633 Calcium mass conc 9.4 mg/dL Normal 8.6-10.2 Compreh ensive Internal Medicine Work Phone: Comment on above: Effective July 09, 2014 the reference interval for Calcium, Serum will be changing to: Age Male Female 0 - 10 days 8.6 - 10.4 8.6 - 10.4 11 days - 1 year 9.2 - 11.0 9.2 - 11.0 2 - 11 years 9.1 - 10.5 9.1 - 10.5 12 - 17 years 8.9 - 10.4 8.9 - 10.4 18 - 59 years 8.7 - 10.2 8.7 - 10.2 >59 years 8.6 - 10.2 8.7 - 10.3 PATIENT NOT FASTINGP ERFORMED BY: LabCoLourdes Specialty HospitalIvdhoe1092 [facility] [id number] Information: H54819, 340953 Chloride molar conc 103 mmol/L Normal 97-108 Compr ensive Internal Medicine Work Phone: Comment on above: PATIENT NOT FASTINGP ERFORMED BY: LabCoLourdes Specialty HospitalHqohcw7335 [facility] [id number] Information: R79266, 271043 CO2 molar conc 24 mmol/L Normal 18-29 Comprehens kaleb Internal Medicine Work Phone: Comment on above: PATIENT NOT FASTINGP ERFORMED BY: [facility]Asc[facility]6370 [facility] [id number] Information: B75546, 694919 Creatinine mass conc 0.88 mg/dL Normal 0.57-1.00 [facility] Work Phone: Comment on above: PATIENT NOT FASTINGP ERFORMED BY: AMI [facility] Nxiwso2684 [address] [facility] [id number] Information: G51032, 527419 GFR/1.73 sq M predicted among blacks CKD-EPI vol rate/area (S/P/Bld) 83 mL/min/1.73 Normal Comprehensiv e Internal Medicine Work Phone: Comment on above: PATIENT NOT FASTINGP ERFORMED BY: CB [facility] Xgjyzg4626 [facility] [id number] Information: O24106, 993951 GFR/1.73 sq M predicted among non-blacks CKD-EPI vol rate/area (S/P/Bld) 72 mL/min/1.73 Normal [facility] Work Phone: Comment on above: PATIENT NOT FASTINGP ERFORMED BY: AMI [facility] Ldkbbv3442 [facility] [id number] Information: E60752, 354364 Globulin Calculated mass conc (S) 2.1 g/dL Normal 1.5-4.5 [facility] Work Phone: Globulin mass conc (S) 2.1 g/dL Normal 1.5-4.5 [facility] Work Phone: Comment on above: PATIENT NOT FASTINGP ERFORMED BY: AMI [facility] Uqwfyn9918 [facility] [id number] Information: E32322, 327440 Glucose mass conc 79 mg/dL Normal 65-99 Compreh ensive Internal Medicine Work Phone: Comment on above: PATIENT NOT FASTINGP ERFORMED BY: CB [facility] Ywtkew3532 [facility] [id number] Information: S61254, 248604 Potassium molar conc 4.1 mmol/L Normal 3.5-5.2 [facility] Work Phone: Comment on above: PATIENT NOT FASTINGP ERFORMED BY: [facility] Jkltmw7083 [facility] [id number] Information: S59920, 051639 Protein mass conc 6.5 g/dL Normal 6.0-8.5 Compreh ensive Internal Medicine Work Phone: Comment on above: PATIENT NOT FASTINGP ERFORMED BY: AMI BustamanteCoadalberto CamposZgfuxq0660 [address]le RoadDublin [place] [id number] Information: Y11342, 673223 Sodium molar conc 143 mmol/L Normal 134-144 Compreh ensive Internal Medicine Work Phone: Comment on above: PATIENT NOT FASTINGP ERFORMED BY: AMI [facility] Tgphmm4958 [address] Roadblin [place] [id number] Information: C98985, 225809 Urea nitrogen mass conc 21 mg/dL Normal 8-27 [facility] Work Phone: Comment on above: PATIENT NOT FASTINGP ERFORMED BY: AMI [facility] Baokab4213 [address] RoadUNC Health Johnston Clayton [id number] Information: Q86696, 873256 Urea nitrogen/Creatinine mass ratio 24 mg/mg Normal 11-26 [facility] Work Phone: Comment on above: PATIENT NOT FASTINGP ERFORMED BY: AMI [facility] Fizcvw9079 [address] Roadblin [place] [id number] Information: X55960, 327143 T4, FREE (THYROXINE) (18601) Ordered By: Film Waxer on 06-27-2014 T4 free mass conc 1.15 ng/dL Normal 0.82-1.77 Compreh ensive Internal Medicine Work Phone: Comment on above: PATIENT NOT FASTINGP ERFORMED BY: AMI [facility] Tqawnd2049 [address] Roadblin [place] [id number] TSH ([id number])Ordered By: Syste m Pump Assembler on 06-27-2014 Thyrotropin Qn 2.810 {uIU/mL} Normal 0.450-4.50 0 [facility] Work Phone: Comment on above: PATIENT NOT FASTINGP ERFORMED BY: AMI [facility] Gyjlft2448 [address]le RoadblMarshall County Hospital [id number] Rapid Strep Test, Office (27 722)Ordered By: Angelina Castellanos on 03-19-2014 S. pyogenes Ag EIA Ql (Throat) Negative Normal [facility]; [facility] Work Phone: S. pyogenes Ag IA Ql (Unsp spec) Negative Normal [facility] Work Phone: Throat Culture ([id number])Ordere d By: Film Waxer on 03-19-2014 Bacteria identified Respiratory culture Nom (Unsp spec) Final report Normal [facility] Work Phone: Comment on above: PATIENT NOT FASTINGP ERFORMED BY: AMI [facility] Innhaw2794 [facility] [id number] Information: SRC:LILLIAN [id number] Bacteria identified Respiratory culture Nom (Unsp spec) RRF Normal [facility] Work Phone: Comment on above: Routine respiratory king PATIENT NOT FASTINGP ERFORMED BY: AMI [facility] Gdownt9139 [facility] [id number] Information: SRC:LILLIAN [id number] LIPID PANEL (00511)Ordered B y: Film Waxer on 01-04-2014 Cholesterol in HDL mass conc 92 mg/dL Normal [facility] Work Phone: Comment on above: According to ATP-III Guidelines, HDL-C >59 mg/dL is considered anegative risk factor for CHD. PATIENT WAS FASTINGP ERFORMED BY: AMI [facility] Tkrfzb2373 [address] SiTimeUNC Health Johnston [facility] [id number] Information: 182080,Y77729 Cholesterol in LDL mass conc 171 mg/dL Abnormal 0-99 [facility] Work Phone: Comment on above: PATIENT WAS FASTINGP ERFORMED BY: AMI [facility] Qglgcs9064 [facility] [id number] Information: 483658,B18242 Cholesterol in LDL/Cholesterol in HDL mass ratio 1.9 {ratio_units} Normal 0.0-3.2 [facility] Work Phone: Comment on above: PATIENT WAS FASTINGP ERFORMED BY: AMI [facility]Asc[facility]6370 [facility] [id number] Information: 935491,Z55818 Cholesterol in VLDL mass conc 11 mg/dL Normal 5-40 [facility] Work Phone: Comment on above: PATIENT WAS FASTINGP ERFORMED BY: AMI [facility] Ytsptc1527 [facility] [id number] Information: 906077,F01394 Cholesterol mass conc 274 mg/dL Abnormal 100-199 [facility] Work Phone: Comment on above: PATIENT WAS FASTINGP ERFORMED BY: [facility]Asc[facility]6370 [facility] [id number] Information: 856618,C65249 Triglyceride mass conc 56 mg/dL Normal 0-149 [facility] Work Phone: Comment on above: PATIENT WAS FASTINGP ERFORMED BY: AMI [place] [address]60370 [facility] [id number] Information: [id number],M41172 T4, FREE (THYROXINE) (85483) Ordered By: Film Waxer on 01-04-2014 T4 free mass conc 1.23 ng/dL Normal 0.82-1.77 Compreh ensive Internal Medicine Work Phone: Comment on above: PATIENT WAS FASTINGP ERFORMED BY: MAI [facility]6370 [facility] [id number] TSH ([id number])Ordered By: Sahil m Pump Assembler on 01-04-2014 Thyrotropin Qn 3.180 {uIU/mL} Normal 0.450-4.50 0 [facility] Work Phone: Comment on above: PATIENT WAS FASTINGP ERFORMED BY: LabAsc[facility]6370 [facility] [id number] CBC with manual diff ([id number]) Ordered By: Film Waxer on 07-10-2013 Basophils #/vol (Bld) 0.0 {x10E3/uL} Normal 0.0-0.2 [facility] Work Phone: Comment on above: PATIENT WAS FASTINGP ERFORMED BY: [address] [id number] Information: ADD V08357 AND DRAW FEE 99 6660 Basophils (Bld) [#/Vol] 0.0 10*3/uL Normal 0.0-0.2 [facility]; [facility] Work Phone: Comment on above: PATIENT WAS FASTINGP ERFORMED BY: [address] [id number] Information: ADD C23095 AND DRAW FEE 99 6660 Basophils Auto #/vol (Bld) 0.0 {x10E3/uL} Normal 0.0-0.2 [facility] Work Phone: Basophils/100 WBC (Bld) 1 % Normal 0-3 [facility] Work Phone: Comment on above: PATIENT WAS FASTINGP ERFORMED BY: [address] [id number] Information: ADD O90463 AND DRAW FEE 99 6660 Basophils/100 WBC Auto (Bld) 1 % Normal 0-3 [facility] Work Phone: Eosinophils #/vol (Bld) 0.1 {x10E3/uL} Normal 0.0-0.4 [facility] Work Phone: Comment on above: PATIENT WAS FASTINGP ERFORMED BY: [address] [id number] Information: ADD G61702 AND DRAW FEE 99 6660 Eosinophils (Bld) [#/Vol] 0.1 10*3/uL Normal 0.0-0.4 [facility]; [facility] Work Phone: Comment on above: PATIENT WAS FASTINGP ERFORMED BY: [address] [id number] Information: ADD Q99484 AND DRAW FEE 99 6660 Eosinophils Auto #/vol (Bld) 0.1 {x10E3/uL} Normal 0.0-0.4 [facility] Work Phone: Eosinophils/100 WBC (Bld) 3 % Normal 0-5 [facility] Work Phone: Comment on above: PATIENT WAS FASTINGP ERFORMED BY: AMI DiannaJerry PopeCboftb5018 [facility] [id number] Information: ADD G92597 AND DRAW FEE 99 6660 Eosinophils/100 WBC Auto (Bld) 3 % Normal 0-5 [facility] Work Phone: Erythrocyte distribution width Auto Ratio (RBC) 13.8 % Normal 12.3-15.4 [facility] Work Phone: Erythrocyte distribution width Ratio (RBC) 13.8 % Normal 12.3-15.4 [facility] Work Phone: Comment on above: PATIENT WAS FASTINGP ERFORMED BY: AMI Popelin6370 [facility] [id number] Information: ADD C26769 AND DRAW FEE 99 6660 Hematocrit Auto Volume Fraction (Bld) 39.3 % Normal 34.0-46.6 [facility] Work Phone: Hematocrit Volume Fraction (Bld) 39.3 % Normal 34.0-46.6 [facility] Work Phone: Comment on above: PATIENT WAS FASTINGP ERFORMED BY: AMI Popelin6370 [facility] [id number] Information: ADD C11117 AND DRAW FEE 99 6660 Hemoglobin mass conc (Bld) 13.0 g/dL Normal 11.1-15.9 [facility] Work Phone: Comment on above: PATIENT WAS FASTINGP ERFORMED BY: AMI [place] [address]60370 [facility] [id number] Information: ADD N59537 AND DRAW FEE 99 6660 Immature granulocytes #/vol (Bld) 0.0 {x10E3/uL} Normal 0.0-0.1 [facility] Work Phone: Comment on above: PATIENT WAS FASTINGP ERFORMED BY: AMI [place] [address]60370 [facility] [id number] Information: ADD K81306 AND DRAW FEE 99 6660 Immature granulocytes (Bld) [#/Vol] 0.0 10*3/uL Normal 0.0-0.1 [facility]; [facility] Work Phone: Comment on above: PATIENT WAS FASTINGP ERFORMED BY: [address] [id number] Information: ADD G69349 AND DRAW FEE 99 6660 Immature granulocytes/100 WBC (Bld) 0 % Normal 0-2 [facility] Work Phone: Comment on above: PATIENT WAS FASTINGP ERFORMED BY: [address] [id number] Information: ADD E75359 AND DRAW FEE 99 6660 Lymphocytes #/vol (Bld) 2.1 {x10E3/uL} Normal 0.7-3.1 [facility] Work Phone: Comment on above: PATIENT WAS FASTINGP ERFORMED BY: [address] [id number] Information: ADD R06824 AND DRAW FEE 99 6660 Lymphocytes (Bld) [#/Vol] 2.1 10*3/uL Normal 0.7-3.1 [facility]; [facility] Work Phone: Comment on above: PATIENT WAS FASTINGP ERFORMED BY: [address] [id number] Information: ADD L29699 AND DRAW FEE 99 6660 Lymphocytes Auto #/vol (Bld) 2.1 {x10E3/uL} Normal 0.7-3.1 [facility] Work Phone: Lymphocytes/100 WBC (Bld) 41 % Normal 14-46 [facility] Work Phone: Comment on above: PATIENT WAS FASTINGP ERFORMED BY: [address] [id number] Information: ADD E53315 AND DRAW FEE 99 6660 Lymphocytes/100 WBC Auto (Bld) 41 % Normal 14-46 [facility] Work Phone: MCH Auto Entitic mass (RBC) 29.6 pg Normal 26.6-33.0 [facility] Work Phone: MCH Entitic mass (RBC) 29.6 pg Normal 26.6-33.0 [facility] Work Phone: Comment on above: PATIENT WAS FASTINGP ERFORMED BY: AMI [employer] [id number] Information: ADD T61103 AND DRAW FEE 99 6660 MCHC Auto mass conc (RBC) 33.1 g/dL Normal 31.5-35.7 [facility] Work Phone: MCHC mass conc (RBC) 33.1 g/dL Normal 31.5-35.7 [facility] Work Phone: Comment on above: PATIENT WAS FASTINGP ERFORMED BY: AMI [employer] [id number] Information: ADD V48519 AND DRAW FEE 99 6660 MCV Auto Entitic volume (RBC) 90 fL Normal 79-97 [facility] Work Phone: MCV Entitic volume (RBC) 90 fL Normal 79-97 [facility] Work Phone: Comment on above: PATIENT WAS FASTINGP ERFORMED BY: AMI [place] [address]60370 [facility] [id number] Information: ADD U36460 AND DRAW FEE 99 6660 Monocytes #/vol (Bld) 0.3 {x10E3/uL} Normal 0.1-0.9 [facility] Work Phone: Comment on above: PATIENT WAS FASTINGP ERFORMED BY: AMI [place] [address]60370 [facility] [id number] Information: ADD M97398 AND DRAW FEE 99 6660 Monocytes (Bld) [#/Vol] 0.3 10*3/uL Normal 0.1-0.9 [facility]; [facility] Work Phone: Comment on above: PATIENT WAS FASTINGP ERFORMED BY: AMI [facility]6370 [facility] [id number] Information: ADD J71330 AND DRAW FEE 99 6660 Monocytes Auto #/vol (Bld) 0.3 {x10E3/uL} Normal 0.1-0.9 [facility] Work Phone: Monocytes/100 WBC (Bld) 6 % Normal 4-12 [facility] Work Phone: Comment on above: PATIENT WAS FASTINGP ERFORMED BY: AMI [place] [address]60370 [facility] [id number] Information: ADD C59727 AND DRAW FEE 99 6660 Monocytes/100 WBC Auto (Bld) 6 % Normal 4-12 [facility] Work Phone: Neutrophils #/vol (Bld) 2.6 {x10E3/uL} Normal 1.4-7.0 [facility] Work Phone: Comment on above: PATIENT WAS FASTINGP ERFORMED BY: AMI [facility]6370 [facility] [id number] Information: ADD L42890 AND DRAW FEE 99 6660 Neutrophils (Bld) [#/Vol] 2.6 10*3/uL Normal 1.4-7.0 [facility]; [facility] Work Phone: Comment on above: PATIENT WAS FASTINGP ERFORMED BY: [place] [address]12170 [facility] [id number] Information: ADD L29141 AND DRAW FEE 99 6660 Neutrophils Auto #/vol (Bld) 2.6 {x10E3/uL} Normal 1.4-7.0 [facility] Work Phone: Neutrophils/100 WBC (Bld) 49 % Normal 40-74 [facility] Work Phone: Comment on above: PATIENT WAS FASTINGP ERFORMED BY: [place] 1412170 [facility] [id number] Information: ADD T77130 AND DRAW FEE 99 6660 Neutrophils/100 WBC Auto (Bld) 49 % Normal 40-74 [facility] Work Phone: Platelets #/vol (Bld) 253 {x10E3/uL} Normal 155-379 [facility] Internal Medicine Work Phone: Comment on above: PATIENT WAS FASTINGP ERFORMED BY: [place] 1412170 [facility] [id number] Information: ADD T21192 AND DRAW FEE 99 6660 Platelets (Bld) [#/Vol] 253 10*3/uL Normal 155-379 [facility]; [facility] Work Phone: Comment on above: PATIENT WAS FASTINGP ERFORMED BY: AMI [facility] Yiufoq214[address] [id number] Information: ADD C69608 AND DRAW FEE 99 6660 Platelets Auto #/vol (Bld) 253 {x10E3/uL} Normal 155-379 [facility] Work Phone: RBC #/vol (Bld) 4.39 {x10E6/uL} Normal 3.77-5.28 [facility] Internal Medicine Work Phone: Comment on above: PATIENT WAS FASTINGP ERFORMED BY: AMI [address] [id number] Information: ADD W34344 AND DRAW FEE 99 6660 RBC (Bld) [#/Vol] 4.39 10*6/uL Normal 3.77-5.28 [facility]; [facility] Internal Medicine Work Phone: Comment on above: PATIENT WAS FASTINGP ERFORMED BY: [place] 1412170 [facility] [id number] Information: ADD G85476 AND DRAW FEE 99 6660 RBC Auto #/vol (Bld) 4.39 {x10E6/uL} Normal 3.77-5.28 [facility] Internal Medicine Work Phone: WBC #/vol (Bld) 5.3 {x10E3/uL} Normal 3.4-10.8 Compr ensive Internal Medicine Work Phone: Comment on above: PATIENT WAS FASTINGP ERFORMED BY: AMI DiannaJerry PopeEixium6776 [facility] [id number] Information: ADD V22917 AND DRAW FEE 99 6660 WBC (Bld) [#/Vol] 5.3 10*3/uL Normal 3.4-10.8 Compre [facility] Internal Medicine; [facility] Work Phone: Comment on above: PATIENT WAS FASTINGP ERFORMED BY: AMI DiannaJerry PopeZssajz2451 [facility] [id number] Information: ADD R67855 AND DRAW FEE 99 6660 WBC Auto #/vol (Bld) 5.3 {x10E3/uL} Normal 3.4-10.8 [facility] Work Phone: Lipid Panel (07959)Ordered B y: Film Waxer on 07-10-2013 Cholesterol in HDL mass conc 91 mg/dL Normal [facility] Work Phone: Comment on above: According to ATP-III Guidelines, HDL-C >59 mg/dL is considered anegative risk factor for CHD. PATIENT WAS FASTINGP ERFORMED BY: AMI Popelin6370 [facility] [id number] Cholesterol in LDL mass conc 149 mg/dL Abnormal 0-99 [facility] Work Phone: Comment on above: PATIENT WAS FASTINGP ERFORMED BY: AMI Popelin6370 [facility] [id number] Cholesterol in LDL/Cholesterol in HDL mass ratio 1.6 {ratio_units} Normal 0.0-3.2 [facility] Work Phone: Comment on above: PATIENT WAS FASTINGP ERFORMED BY: AMI Popelin6370 [facility] [id number] Cholesterol in VLDL mass conc 8 mg/dL Normal 5-40 [facility] Work Phone: Comment on above: PATIENT WAS FASTINGP ERFORMED BY: AMI Popelin6370 [facility] [id number] Cholesterol mass conc 248 mg/dL Abnormal 100-199 [facility] Work Phone: Comment on above: PATIENT WAS FASTINGP ERFORMED BY: AMI LabCoadalberto PopeLzhhal3306 [address] Roadblin [place] [id number] Triglyceride mass conc 41 mg/dL Normal 0-149 [facility] Work Phone: Comment on above: PATIENT WAS FASTINGP ERFORMED BY: [facility] Qifwzw[address] [facility] [place] [id number] Metabolic Panel, Comprehensi ve (54643)Ordered By: Film Waxer on 07-10-2013 Albumin mass conc 4.2 g/dL Normal 3.5-5.5 Compreh [facility] Internal Medicine Work Phone: Comment on above: PATIENT WAS FASTINGP ERFORMED BY: [facility] Sgmjsb3352 [address] [facility] [id number] Albumin/Globulin mass ratio 1.9 {ratio} Normal 1.1-2.5 [facility] Work Phone: Comment on above: PATIENT WAS FASTINGP ERFORMED BY: [facility] Cbpuss[address] [facility]in [place] [id number] ALP [Catalytic activity/Vol] 68 U/L Normal 39-117 [facility]; [facility] Work Phone: Comment on above: PATIENT WAS FASTINGP ERFORMED BY: [facility] Zhzcla[address] [facility]in [place] [id number] ALP enzyme act/vol 68 [iU]/L Normal 39-117 [facility] Internal Medicine Work Phone: Comment on above: PATIENT WAS FASTINGP ERFORMED BY: [facility] Yziify3936 [address] Roadblin [place] [id number] ALT [Catalytic activity/Vol] 18 U/L Normal 0-32 [facility]; [facility] Work Phone: Comment on above: PATIENT WAS FASTINGP ERFORMED BY: [facility] Ihaoin1617 [address] RoadDublin [place] [id number] ALT enzyme act/vol 18 [iU]/L Normal 0-32 [facility] [place] Internal Medicine Work Phone: Comment on above: PATIENT WAS FASTINGP ERFORMED BY: AMI LabCoadalberto PopeWeqjtu8159 [address]le RoadDublin [place] [id number] AST [Catalytic activity/Vol] 21 U/L Normal 0-40 [facility]; [facility] Work Phone: Comment on above: PATIENT WAS FASTINGP ERFORMED BY: AMI LabCoadalberto PopeVotzrv3291 [address] RoadDublin [place] [id number] AST enzyme act/vol 21 [iU]/L Normal 0-40 [facility] Internal Medicine Work Phone: Comment on above: PATIENT WAS FASTINGP ERFORMED BY: AMI LabJerry PopeEflydp2809 [address] RoadDublin [place] [id number] Bilirubin mass conc 0.4 mg/dL Normal 0.0-1.2 Compr ensive Internal Medicine Work Phone: Comment on above: PATIENT WAS FASTINGP ERFORMED BY: AMI Popelin6370 [address] [place] [id number] Calcium mass conc 9.5 mg/dL Normal 8.7-10.2 Compreh [facility] Work Phone: Comment on above: PATIENT WAS FASTINGP ERFORMED BY: AMI Popelin6[address] [facility] [place] [id number] Chloride molar conc 107 mmol/L Normal 97-108 Compr [facility] Internal Medicine Work Phone: Comment on above: PATIENT WAS FASTINGP ERFORMED BY: AMI LabCoadalberto PopeSmgrkr6812 [address] RoadDublin [place] [id number] CO2 molar conc 22 mmol/L Normal 19-28 Comprehens kaleb Internal Medicine Work Phone: Comment on above: PATIENT WAS FASTINGP ERFORMED BY: AMI LabCoadalberto Wjltyn5647 [address] RoadDublin [place] [id number] Creatinine mass conc 0.87 mg/dL Normal 0.57-1.00 [facility] Work Phone: Comment on above: PATIENT WAS FASTINGP ERFORMED BY: AMI [facility] Zazvzg8643 [address] RoadDublin [place] [id number] GFR/1.73 sq M predicted among blacks CKD-EPI vol rate/area (S/P/Bld) 84 mL/min/1.73 Normal Comprehensiv e Internal Medicine Work Phone: Comment on above: PATIENT WAS FASTINGP ERFORMED BY: [facility] Ynvvbl[address] [facility]in [place] [id number] GFR/1.73 sq M predicted among non-blacks CKD-EPI vol rate/area (S/P/Bld) 73 mL/min/1.73 Normal [facility] Work Phone: Comment on above: PATIENT WAS FASTINGP ERFORMED BY: [facility] Gddjqa4252 [facility] [id number] Globulin Calculated mass conc (S) 2.2 g/dL Normal 1.5-4.5 [facility] Work Phone: Globulin mass conc (S) 2.2 g/dL Normal 1.5-4.5 [facility] Work Phone: Comment on above: PATIENT WAS FASTINGP ERFORMED BY: [facility] Ksbpfr4677 [facility] [id number] Glucose mass conc 81 mg/dL Normal 65-99 Compreh ensive Internal Medicine Work Phone: Comment on above: PATIENT WAS FASTINGP ERFORMED BY: [facility] Yyzody5720 [facility] [id number] Potassium molar conc 4.3 mmol/L Normal 3.5-5.2 [facility] Work Phone: Comment on above: PATIENT WAS FASTINGP ERFORMED BY: [facility] Xnftlr0861 [facility] [place] [id number] Protein mass conc 6.4 g/dL Normal 6.0-8.5 [facility] Work Phone: Comment on above: PATIENT WAS FASTINGP ERFORMED BY: [facility] Rrnstz0683 [facility] [id number] Sodium molar conc 143 mmol/L Normal 134-144 [facility] Work Phone: Comment on above: PATIENT WAS FASTINGP ERFORMED BY: [facility] Snuamp7373 [facility] [id number] Urea nitrogen mass conc 24 mg/dL Normal 6-24 [facility] Work Phone: Comment on above: PATIENT WAS FASTINGP ERFORMED BY: [facility] Iimltl3224 [facility] [id number] Urea nitrogen/Creatinine mass ratio 28 mg/mg Abnormal 9- [facility] Work Phone: Comment on above: PATIENT WAS FASTINGP ERFORMED BY: Media Temple [facility] Ityzbn3652 [facility] [id number] TSH ([id number])Ordered By: Syste m Pump Assembler on 07-10-2013 Thyrotropin Qn 3.920 {uIU/mL} Normal 0.450-4.50 0 [facility] Work Phone: Comment on above: PATIENT WAS FASTINGP ERFORMED BY: Media Temple LabInfluxDBrp Gkdido0082 [facility] [id number] Thin prep Pap ([id number])Ordered By: Film Waxer on 01-02-2013 Microscopic observation Other stain Nom (Unsp spec) . Normal [facility] Work Phone: Comment on above: No. of containers..0 1 CYTYC Thin Prep VialPATIENT NOT FASTINGPERFORMED BY: [employer] [place] [address] [id number] Information: ADD [id number] Pathology report final diagnosis Narrative [facility] Normal [facility] Work Phone: Comment on above: NEGATIVE FOR INTRAEP ITHELIAL LESION AND MALIGNANCY.Satisfactory for evaluation. Endocervical and/or squamous metaplasticcells (endocervical component) are present.V72.31 ; Routine gynecological examinationErin Reji Senior Adults Director (ASCP) No. of containers..0 1 CYTYC Thin Prep VialPATIENT NOT FASTINGPERFORMED BY: [employer] [place] [address] [id number] Information: ADD [id number] Thin prep Pap ([id number]) PAPSMR Normal [facility] Work Phone: Comment on above: The Pap smear is a s creening test designed to aid in the detection ofpremalignant and malignant conditions of the uterine cervix. It is not adiagnostic procedure and should not be used as the sole means of detectingcervical cancer. Both false-positive and false-negative reports do occur. .This liquid based ThinPrep(R) pap test was screened with theuse of an image guided system.The HPV DNA reflex criteria were not met with this specimen resulttherefore, no HPV testing was performed. . No. of containers..0 1 CYTYC Thin Prep VialPATIENT NOT FASTINGPERFORMED BY: [facility] [id number] Information: ADD [id number] BILAT SCRN DIGITAL & CADOrde red By: Film Waxer on 12-28-2012 BILAT SCRN DIGITAL & CAD See Note Normal [facility] Work Phone: Comment on above: MAMMOGRAPHY - BILATE RAL SCREENING REASON FOR EXAM: Female, 57 years old. Routine annual screeningexamination. PERTINENT HISTORY: Non-contributory. TECHNIQUE: Digital examination. Mediolateral oblique (MLO) andcraniocaudad (CC) views of both breasts were obtained. CAD: CAD wasperformed on this study. COMPARISON: Comparison is made with prior study dated December 28, 2011 andNovember 03, 2010. FINDINGS:The breast composition is heterogeneously dense - ranging from 51% to 75%of the breast tissue. There are no dominant masses or suspicious calcifications.Macrocalcifications are once again seen bilaterally. No other significant abnormalities are identified. There has been nosignificant change since the prior study. IMPRESSION:Stable bilateral screening mammogram. Yearly follow-up recommended. (A) ASSESSMENT CATEGORY:BIRADS Category 2: Benign finding(s). A letter regarding these resultswill be sent to the patient by the facility within 30 days. Approximately 10% of breast cancers are not detected by mammography. Anormal mammogram should not delay biopsy of a clinically suspiciousabnormality. Signed:Raman Peraza M.D.December 28, 2012 at 8:58:39 AM [id number] Signed GP/GP If you are the referring physician and would like to consult with theradiologist who provided this interpretation, please contact Bebe Fox at [phone]. If this radiologist is unavailable, youwill be directed to another radiologist to assist. If you are a patient with a question regarding this report, pleasecontactyour referring physician directly. Professional Interpretation Provided By: [email or web address], Phone , These documents contain legally protected and confidential healthinformation intended only for the use of the individual or entity namedabove. If you are not the intended recipient, you are hereby notifiedthatany disclosure, copying, distribution, or other use of these documents isstrictly prohibited. If you have received this information in error,pleasenotify the sender immediately and arrange for the return or destructionofthese documents. Dictated on 12/28/12 0858 by Michoacano Peraza MDribed on 12/28/12 1521 by ITS IMPORTSign by Raman Peraza MD on 12/28/12 1522 Sign by: Raman Peraza MD TSH ([id number])Ordered By: Sahil Rainey on 06-27-2012 Thyrotropin Qn 3.160 {uIU/mL} Normal 0.450-4.50 0 [facility] Work Phone: Comment on above: PATIENT NOT FASTINGP ERFORMED BY: [facility] Bumzfa5086 [facility] [id number] Information: [id number] HIP, MIN 2 VIEWSOrdered By: Film Waxer on 06-02-2012 HIP, MIN 2 VIEWS See Note Normal Comprehe nsive [facility] Medicine Work Phone: Comment on above: PROCEDURE: X-RAY - R IGHT HIP REASON FOR EXAM: Female, 56 years old. Chronic hip pain. TECHNIQUE: Two views of the hip. COMPARISON: None. FINDINGS: Normal femoral head, neck, intertrochanteric region and visualizedproximalfemur. Normal acetabulum. Normal hip joint. Normal visualized superior and inferior pubic rami and ischialtuberosities. IMPRESSION:Normal x-ray examination of the hip. Signed:Raman Peraza M.D.June 02, 2012 at 3:46:08 PM [id number] Signed GP/GP If you are the referring physician and would like to consult with theradiologist who provided this interpretation, please contact Bebe Fox at [phone]. If this radiologist is unavailable, youwill be directed to another radiologist to assist. If you are a patient with a question regarding this report, pleasecontactyour referring physician directly. Professional Interpretation Provided By: [email or web address], Phone , These documents contain legally protected and confidential healthinformation intended only for the use of the individual or entity namedabove. If you are not the intended recipient, you are hereby notifiedthatany disclosure, copying, distribution, or other use of these documents isstrictly prohibited. If you have received this information in error,pleasenotify the sender immediately and arrange for the return or destructionofthese documents. Dictated on 06/02/12999 by Roberto Peraza MDscribed on 06/02/121843 by ITS IMPORTSign by Raman Peraza MD on 06/02/121844 Sign by: Pedicelli MD,Raman BILAT SCRN DIGITAL & CADOrde red By: Film Waxer on 12-28-2011 BILAT SCRN DIGITAL & CAD See Note Normal [facility] Work Phone: Comment on above: MAMMOGRAPHY - BILATE RAL SCREENING REASON FOR EXAM: Female, 56 years old. Routine annual screeningexamination. PERTINENT HISTORY: Non-contributory. TECHNIQUE: Digital examination. Mediolateral oblique (MLO) andcraniocaudad (CC) views of both breasts were obtained. CAD: CAD wasperformed on this study. COMPARISON: Comparison is made with prior studies dated November 03ndJuly 10, 2009. FINDINGS:The breast composition is heterogeneously dense. There are no dominant masses or suspicious calcifications. No other significant abnormalities are identified. There has been nosignificant change since the prior study. IMPRESSION:Stable bilateral screening mammogram. Yearly follow-up recommended. (A) ASSESSMENT CATEGORY:BIRADS Category 2: Benign finding(s). A letter regarding these resultswill be sent to the patient by the facility within 30 days. Approximately 10% of breast cancers are not detected by mammography. Anormal mammogram should not delay biopsy of a clinically suspiciousabnormality. Signed:Raman Peraza M.D.December 28, 2011 at 8:07:03 AM [phone] Signed GP/GP If you are the referring physician and would like to consult with theradiologist who provided this interpretation, please contact Bebe Fox at [phone]. If this radiologist is unavailable, youwill be directed to another radiologist to assist. If you are a patient with a question regarding this report, pleasecontactyour referring physician directly. Professional Interpretation Provided By: [email or web address], Phone , Dictated on 12/28/11737 by Michoacano Peraza MDribed on 12/28/11812 by ITS IMPORTSign by Raman Peraza MD on 12/28/11813 Sign by: Raman Peraza MD LIPIDOrdered By: Valery lopez on 09-07-2011 Cholesterol in HDL mass conc 78 mg/dL Normal [facility] Work Phone: Comment on above: Reference Range HDL <40 mg/dL Low HDL Cholesterol HDL >or= 60 mg/dL High HDL Cholesterol Cholesterol in LDL mass conc 131 mg/dL Abnormal 0-130 [facility] Work Phone: Cholesterol in VLDL mass conc 13 mg/dL Normal 5-40 [facility] Work Phone: Cholesterol mass conc 222 mg/dL Abnormal [facility] Work Phone: Comment on above: <200 mg/dL Desirable 200-240 mg/dL Borderline >240 mg/dL High Risk Triglyceride mass conc 64 mg/dL Normal [facility] Work Phone: Comment on above: Serum Triglycerides Reference Interval Normal <150 mg/dL Borderline high 150 - 199 mg/dL High 200 - 499 mg/dL Very High > or = 500 mg/dL TSHOrdered By: System Manage r on 09-07-2011 Thyrotropin Qn 2.12 {uIU/mL} Normal 0.358-3.74 Compre[facility] Work Phone: Lipid Panel ([id number])Ordered B y: Film Waxer on 04-24-2011 Cholesterol in HDL mass conc 89 mg/dL Normal [facility] Work Phone: Comment on above: According to ATP-III Guidelines, HDL-C >59 mg/dL is considered anegative risk factor for CHD. PATIENT WAS FASTINGP ERFORMED BY: AMI QRuso70 NTRglobalUNC [facility] [id number] Information: [id number] Cholesterol in LDL mass conc 166 mg/dL Abnormal 0-99 [facility] Work Phone: Comment on above: PATIENT WAS FASTINGP ERFORMED BY: AMI QRuso70 [facility]gsNov[facility] [id number] Information: [id number] Cholesterol in LDL/Cholesterol in HDL mass ratio 1.9 {ratio_units} Normal 0.0-3.2 [facility] Work Phone: Comment on above: PATIENT WAS FASTINGP ERFORMED BY: [facility]6370 [facility] [id number] Information: [id number] Cholesterol in VLDL mass conc 11 mg/dL Normal 5-40 [facility] Work Phone: Comment on above: PATIENT WAS FASTINGP ERFORMED BY: [facility]CoLourdes Specialty HospitalPftfne9930 [facility] [id number] Information: [id number] Cholesterol mass conc 266 mg/dL Abnormal 100-199 [facility] Work Phone: Comment on above: PATIENT WAS FASTINGP ERFORMED BY: [facility]6370 [facility] [id number] Information: [id number] Triglyceride mass conc 55 mg/dL Normal 0-149 [facility] Work Phone: Comment on above: PATIENT WAS FASTINGP ERFORMED BY: [place] 1412170 [facility] [id number] Information: [id number] TSH ([id number])Ordered By: Syste m Pump Assembler on 04-24-2011 Thyrotropin Qn 5.320 {uIU/mL} Abnormal 0.450-4.50 0 [facility] Work Phone: Comment on above: PATIENT WAS FASTINGP ERFORMED BY: [facility]6370 [facility] [id number] BILAT SCRN DIGITAL & CADOrde red By: Film Waxer on 11-03-2010 BILAT SCRN DIGITAL & CAD See Note Normal [facility] Work Phone: Comment on above: MAMMOGRAPHY - BILATE RAL SCREENING INDICATION:Female, 54 years old. Routine annual screening examination. PERTINENT HISTORY:Non-contributory. TECHNIQUE:Digital examination. Mediolateral oblique (MLO) and craniocaudad (CC)views of both breasts were obtained. CAD: CAD was performed on thisstudy. COMPARISON:Comparison is made with prior examination dated July 10, 2009. FINDINGS:The breast composition is heterogeneously dense. There are no masses or suspicious microcalcifications. No other significant abnormalities are identified. There has been nosignificant change since the prior study. IMPRESSION:Normal bilateral screening mammogram. One year follow-up recommended. (1) ASSESSMENT CATEGORY:BIRADS Category 2: Benign finding(s). A letter regarding these resultswill be sent to the patient by the facility within 30 days. Approximately 10% of breast cancers are not detected by mammography. Anormal mammogram should not delay biopsy of a clinically suspiciousabnormality. Dictated on 11/03/10 1140 by Brooke WELLINGTON,JetrieleTranscribed on 11/04/10 06 by ITS IMPORTSign by Raman Peraza MD on 11/04/10622 Sign by: Raman Peraza MD HPV ASROrdered By: System Marcel bustillos on 10-30-2010 HPV ASR Negative Normal [facility] Work Phone: Comment on above: This test detects fo urteen high-risk HPV types (16/18/31/33/35/39/45/51/52/56/58/59/66/68) without differentiation. .This test was developed and its performance characteristics determinedby [employer]. It has not been cleared or approved by the U.S. Food andDrug Administration. .The FDA has determined that such clearance or approval is notnecessary. This test is used for clinical purposes. It should not beregarded as investigational or for research. Source.............C ervical;EndocervicalNo. of containers..01 CYTYC Thin Prep VialPATIENT NOT FASTINGPERFORMED BY: WB [employer] [address] [id number] BY: =G [employer] [address] [id number] BY: BN [employer] [id number] HPV automatic ([id number])Ordered By: Film Waxer on 10-30-2010 Microscopic observation Other stain Nom (Unsp spec) . Normal [facility] Work Phone: Comment on above: Source.............C ervical;EndocervicalNo. of containers..01 CYTYC Thin Prep VialPATIENT NOT FASTINGPERFORMED BY: [facility] Pcetwflhjs236 Gallina RaulKane County Human Resource SSD [id number] BY: =G [facility] Mbmapppdmc44208 George StreetrashardLehigh Valley Hospital - Pocono [id number] BY: [facility] [id number] Information: [id number] Pathology report final diagnosis Narrative [facility] Normal [facility] Work Phone: Comment on above: NEGATIVE FOR INTRAEP ITHELIAL LESION AND MALIGNANCY.Satisfactory for evaluation. Endocervical and/or squamous metaplasticcells (endocervical component) are present.V73.81 ; Special screening examination, human papillomavirus [HPV]Odette Jacobo, Senior Adults Director (ASCP) Source.............C ervical;EndocervicalNo. of containers..01 CYTYC Thin Prep VialPATIENT NOT FASTINGPERFORMED BY: [facility] Eimlqcylyl711 [facility] HospitaljesusNew [facility] Rehabilitation Hospital At LowellrashardLehigh Valley Hospital [facility]ocono [id number] BY: =G [facility] Ecdilppffn314[address] StreetjesusNew England Rehabilitation Hospital At LowellrashardLehigh Valley Hospital [facility]o [id number] BY: [address] [id number] Information: [id number] HPV automatic ([id number]) PAPSMR Normal [facility] Work Phone: Comment on above: The Pap smear is a s creening test designed to aid in the detection ofpremalignant and malignant conditions of the uterine cervix. It is not adiagnostic procedure and should not be used as the sole means of detectingcervical cancer. Both false-positive and false-negative reports do occur. .This liquid based ThinPrep(R) pap test was screened with theuse of an image guided system. Source.............C ervical;EndocervicalNo. of containers..01 CYTYC Thin Prep VialPATIENT NOT FASTINGPERFORMED BY: WB [facility] Mlfvsuzdfj701 [facility] HospitaljesusNew [facility] Rehabilitation Hospital At Lowellemilyjfk medical center W [id number] BY: =G [facility] Gvhbjcpemi126 [facility] HospitaljesusNew [facility] Rehabilitation Hospital At Lowellrashardfriends hospital W [id number] BY: BN [facility] Nfnjvjfprv4014 [facility] [id number] Information: [id number] TSH ([id number])Ordered By: Sahil m Pump Assembler on 09-24-2010 Thyrotropin Qn 3.610 {uIU/mL} Normal 0.450-4.50 0 [facility] Work Phone: Comment on above: PATIENT NOT FASTINGP ERFORMED BY: AMI [facility] Pnpqsq3810 [facility] [id number] Information: [id number] KIDNEYOrdered By: Valery mcneillr on 05-12-2010 KIDNEY See Note Normal [facility] Work Phone: Comment on above: CLINICAL:This is a [age]-year-old female patient with history of hematuria. RENAL ULTRASOUND TECHNIQUE:The kidneys and bladder were evaluated at real-time sonographically withstatic martinez scale images obtained for image documentation. COMPARISON:None. FINDINGS:Normal location of the right kidney. Normal length of the right kidney.The right kidney measures 10.7 cm. There is no focal parenchymalthinningof the right kidney. There is no right renal mass or cyst. There arenoright renal calculi. There is no right hydronephrosis. There is no dilatation of the visualized distal right ureter. There isnodemonstrated right ureteral calculus. Normal location of the left kidney. Normal length of the left kidney.Theleft kidney measures 11.4 cm. There is no focal parenchymal thinningofthe left kidney. There is no left renal mass or cyst. There are noleftrenal calculi. There is no left hydronephrosis. There is no dilatation of the visualized distal left ureter. There isnodemonstrated left ureteral calculus. There is a minimally distended urinary bladder. The visualized aorta and IVC are unremarkable. IMPRESSION:Normal ultrasound examination of the bilateral kidneys. Dictated on 05/12/10 1354 by Adam Perazaranscribed on 05/12/10 1354 by MAURICIO STRICKLANDSONSign by Raman Peraza on 05/13/10 0859 Sign by: Raman Peraza CULTURE, URINEOrdered By: Chris stem Pump Assembler on 05-01-2010 Bacteria identified Cx Nom (U) See Note Normal [facility] Work Phone: Comment on above: COLONY COUNT 1000-10 ,000 ORGANISM 1: MIXED GRAM POSITIVE ORGANISMS Urinalysis, Office ([id number])Or dered By: Genet Martínez on 04-30-2010 Bilirubin Ql (U) Negative Normal Comprehe nsive [facility] Work Phone: Bilirubin Ql (U) Negative Normal Comprehe nsive [facility]; [facility] Work Phone: Glucose Test strip (U) [Mass/Vol] Negative Normal [facility]; [facility] Work Phone: Glucose Test strip mass conc (U) Negative Normal [facility] Work Phone: Hemoglobin Ql (U) Non Hemolyzed Moderate Normal [facility] Work Phone: Hemoglobin Test strip Ql (U) Non Hemolyzed Moderate Normal Comprehen sive Internal Medicine Work Phone: Ketones Ql (U) Negative Normal Comprehens kaleb [facility] Work Phone: Ketones Ql (U) Negative Normal Comprehens [facility]; [facility] Work Phone: Leukocyte esterase Test strip Ql (U) Trace Normal [facility] Work Phone: Nitrite Ql (U) Negative Normal Comprehens k[facility] Work Phone: Nitrite Ql (U) Negative Normal Comprehens [facility]; [facility] Work Phone: Nitrite Test strip Ql (U) Negative Normal [facility] Work Phone: pH (U) 7.0 [pH] Normal [facility] Work Phone: pH Test strip (U) 7.0 [pH] Normal Compreh ensive [facility] Work Phone: Protein Ql (U) Negative Normal Comprehens [facility] Work Phone: Protein Ql (U) Negative Normal Comprehens [facility]; [facility] Work Phone: Protein Test strip Ql (U) Negative Normal [facility] Work Phone: Specific gravity Relative Density (U) 1.015 1 Normal [facility] Work Phone: Urobilinogen mass/time (24H U) Normal Normal [facility] Work Phone: TSHOrdered By: System Manage r on 01-16-2010 Thyrotropin Qn 3.18 {uIU/mL} Normal 0.358-3.74 Compreh ensive [facility] Medicine Work Phone: ColoSure(TM)Ordered By: Syst em Pump Assembler on 09-10-2009 ColoSure(TM) PGPDNA Normal Comprehensiv e Internal Medicine Work Phone: Comment on above: DNA extraction is co mplete. Specimen has been forwarded to DiannaInfluxDBOTIS glover for PCR analysis.. PERFORMED BY: [employer] Jerry [address] [id number] BY: PEGGY [facility] UUK5122 [facility] [id number] BY: RADHA [facility] RQT1292 [facility] [id number] Information: PT. AWARE OUT OF NETWORK Vimentin MethylationOrdered By: Film Waxer on 09-10-2009 Vimentin Methylation COLNEG Normal [facility] Work Phone: Comment on above: NEGATIVE.Interpretat ion:.Methylation of exon-1 sequences in the nontranscribed region of thevimentin gene has recently been identified as a novel biomarkerassociated with colorectal cancer. Methylation of CpG-rich genesequences are epigenetic changes that are commonly associated withhuman cancers. Recent publications on studies in patients known to haveinvasive colorectal cancer show that ColoSure(TM) (a single marker,stool-based DNA test) provides a sensitivity range of 72% to 77% jamar specificity range of 83% to 94%. This test should not be used forsymptomatic patients who may require more invasive follow-up. Thedetection rates for general population screening have not beendetermined..Current guidelines emphasize routine screening beginning at age 50.In addition to the stool DNA assay (ColoSure(TM) is a stool DNAassay), guideline screening options include guaiac-based stool bloodtesting and immunochemical based stool blood testing as tests thatprimarily detect cancer; and invasive structural exam tests such ascolonoscopy (the gold standard), computed tomographic colonography,double-contrast barium enema and flexible sigmoidoscopy as tests thatdetect adenomatous polyps and cancer. Tests that are designed todetect adenomatous polyps and cancer (colonoscopy, etc.) should beencouraged to patients. ColoSure(TM) can be a useful alternative forasymptomatic patients who are at average risk for developingcolorectal cancer and who are unwilling or unable to undergo acolonoscopy. ColoSure(TM) may also be used to supplement othermethods, depending upon the specific needs of a patient, taking intoaccount that person's risk factors and adherence to screening.Ultimately, the patient's willingness to comply with a colorectalcancer screening program, the overall medical condition of thepatient, and the performance characteristics of ColoSure(TM) shouldall be considered in making a decision regarding the most appropriateoverall screening program for an individual.Human DNA is captured from stool homogenate and analyzed formethylation of exon-1 of the vimentin gene using bisulfite conversionand methylation specific PCR. Results are visualized by gelelectrophoresis. Molecular-based testing is highly accurate, but as inany laboratory test, rare diagnostic errors may occur.1. Yohana SH, Shelbie L, Eddie R. et al. Improved Fecal DNA Testfor Colorectal Cancer Screening. Clin Gastroenterol Hepatol. 2007Jan; 5(1):111-117.2. Rico Mcneil, Car SAHNI, Kalia Mcneil. et al. Screening andSurveillance for the Early Detection of Colorectal Cancer andAdenomatous Polyps, 2008: A Joint Guideline from the AmericanCancer Society, the [place] Multi-Society Task Force on ColorectalCancer, and the [place] [employer]. [place] Cancer J Clin.2008; May-Nov; 58(3):130-160.Haily Edmond, PhD, FACMGDirector, Molecular GeneticsLabSt. Joseph Medical Center [facility] MolecularBiology and PathologyMichaela Ville [phone]. PERFORMED BY: [employer] Jerry [address] [id number] BY: PEGGY [facility] [id number]RTP [place] [id number] BY: GARCIA [facility] [id number] [place] CRTP [place] [id number] LQDPAP [id number] By: Marcelle lenz Pump Assembler on 07-24-2009 LQDPAP [id number] . Normal [facility] Work Phone: Comment on above: CYTOLOGY INFORMATION :- CLINICAL INFORMATION:- DATE LMP/MENOPAUSE:- COLLECTION VIAL: Thin Prep Vial- FASHION PATTERNMAKER SOURCE:- COLLECTION TECHNIQUE: LQDPAP [id number] Comment Normal [facility] Work Phone: Comment on above: NEGATIVE FOR INTRAEP ITHELIAL LESION AND MALIGNANCY.CELLULAR CHANGES ASSOCIATED WITH INFLAMMATION ARE PRESENT.Satisfactory for evaluation. Endocervical and/or squamous metaplasticcells (endocervical component) are present.Doris Christiansen, Senior Adults Director ([facility])This liquid based ThinPrep(R) pap test was screened withthe use of an image guided system. The Pap smear is a s creening test designed to aid in thedetection of premalignant and malignant conditions of theuterine cervix. It is not a diagnostic procedure andshould not be used as the sole means of detecting cervicalcancer. Both false-positive and false-negative reports dooccur.. CYTOLOGY INFORMATION :- CLINICAL INFORMATION:- DATE LMP/MENOPAUSE:- COLLECTION VIAL: Thin Prep Vial- FASHION PATTERNMAKER SOURCE:- COLLECTION TECHNIQUE: LQDPAP [id number] SeeNote Normal [facility] Internal Medicine Work Phone: Comment on above: Result: NegativeThis high-risk HPV test detects thirteen high- risk types(16/18/31/33/35/39/45/51/52/56/58/59/68) withoutdifferentiation..Performed At: [address], [place] [id number] At: =[address] [facility], [place] [id number] CYTOLOGY INFORMATION :- CLINICAL INFORMATION:- DATE LMP/MENOPAUSE:- COLLECTION VIAL: Thin Prep Vial- FASHION PATTERNMAKER SOURCE:- COLLECTION TECHNIQUE: BILAT SCRN DIGITAL & CADOrde red By: Film Waxer on 07-10-2009 BILAT SCRN DIGITAL & CAD See Note Normal [facility] Work Phone: Comment on above: Exam Number: [id number] DIGITAL BILATERAL MAMMOGRAM Digital oblique and craniocaudal views were obtained. Comparison ismade with the prior examination dated June 29, 2008. Interpretationwas made with the benefit of the CAD system. HISTORYThis is a 53-year-old female patient with history of routine annualscreening. FINDINGSThere is a moderate amount of fibroglandular tissue. No dominant masslesion is seen. No cluster of microcalcification is present. Theoverlying skin is not thickened. There has been no change since priorexamination. IMPRESSION1. There has been no change since prior examination.2. Routine annual mammographic followup is suggested.3. BIRADS Category 1. Negative. A letter regarding the results has been sent to the patient. This interpretation was rendered by a radiologist certified under theMammography Quality Standards Act of 1992 (MQSA). The mammograms werealso examined with computer-aided detection software (ImageBasicGov Systemscker, [employer] Reported By: RAMAN PERAZA TSHOrdered By: System Manage r on 03-26-2009 Thyrotropin Qn 3.04 {uIU/mL} Normal 0.358-3.74 Compreh ensive Internal Medicine Work Phone: [id number] By: Film Waxer on 01-18-2009 [id number] 2303 12.0 U/mL Normal 0.0-35.0 [facility] Work Phone: Comment on above: Mustapha sorto gyPerformed At: [facility] [id number] [place], [place] [id number] LIPIDOrdered By: System Kymberly lopez on 01-18-2009 Cholesterol in HDL mass conc 75 mg/dL Normal [facility] Work Phone: Comment on above: Reference Range HDL <40 mg/dL Low HDL Cholesterol HDL >or= 60 mg/dL High HDL Cholesterol Cholesterol in LDL mass conc 143 mg/dL Abnormal 0-130 [facility] Work Phone: Cholesterol in VLDL mass conc 16 mg/dL Normal 5-40 [facility] Work Phone: Cholesterol mass conc 234 mg/dL Abnormal [facility] Work Phone: Comment on above: <200 mg/dL Desirable 200-240 mg/dL Borderline >240 mg/dL High Risk Triglyceride mass conc 80 mg/dL Normal [facility] Work Phone: Comment on above: Serum Triglycerides Reference Interval Normal <150 mg/dL Borderline high 150 - 199 mg/dL High 200 - 499 mg/dL Very High > or = 500 mg/dL TSHOrdered By: System Manage r on 01-18-2009 Thyrotropin Qn 5.03 {uIU/mL} Abnormal 0.358-3.74 Compreh ensive Internal Medicine Work Phone: LQD PAP [id number] By: Chris stem Pump Assembler on 07-12-2008 LQD PAP [id number] Comment Normal Comprehens [facility] Internal Medicine Work Phone: Comment on above: Vince Stanley totechnologist (ASCP) The Pap smear is a s creening test designed to aid in thedetection of premalignant and malignant conditions of theuterine cervix. It is not a diagnostic procedure andshould not be used as the sole means of detecting cervicalcancer. Both false-positive and false-negative reports dooccur. . Satisfactory for puja luation. Endocervical and/or squamous metaplasticcells (endocervical component) are present. NEGATIVE FOR INTRAEP ITHELIAL LESION AND MALIGNANCY. The HPV DNA reflex c gene were not met with this specimenresult therefore, no HPV testing was performed. .Performed At: [address] [id number] CYTOLOGY INFORMATION :- CLINICAL INFORMATION: - DATE LMP/MENOPAUSE: MENOPAUSE- COLLECTION VIAL: Thin Prep Vial- FASHION PATTERNMAKER SOURCE: CERVICAL/ENDOCERVICAL- COLLECTION TECHNIQUE: BRUSH/SPATULA LQD PAP [id number] . Normal Comprehens [facility] Work Phone: Comment on above: CYTOLOGY INFORMATION :- CLINICAL INFORMATION: - DATE LMP/MENOPAUSE: MENOPAUSE- COLLECTION VIAL: Thin Prep Vial- FASHION PATTERNMAKER SOURCE: CERVICAL/ENDOCERVICAL- COLLECTION TECHNIQUE: BRUSH/SPATULA Urinalysis, Office ([id number])Or dered By: Nadege Temple on 07-12-2008 Bilirubin Ql (U) Negative Normal Comprehe nsive Internal Medicine Work Phone: Bilirubin Ql (U) Negative Normal Comprehe nsive [facility]; [facility] Work Phone: Glucose Test strip (U) [Mass/Vol] Negative Normal [facility]; [facility] Work Phone: Glucose Test strip mass conc (U) Negative Normal [facility] Work Phone: Hemoglobin Ql (U) Hemolyzed Moderate Normal [facility] Work Phone: Hemoglobin Test strip Ql (U) Hemolyzed Moderate Normal [facility] Work Phone: Ketones Ql (U) Negative Normal Comprehens [facility] Work Phone: Ketones Ql (U) Negative Normal Comprehens [facility]; [facility] Work Phone: Leukocyte esterase Test strip Ql (U) Negative Normal [facility] Work Phone: Leukocyte esterase Test strip Ql (U) Negative Normal [facility]; [facility] Work Phone: Nitrite Ql (U) Negative Normal Comprehens [facility] Work Phone: Nitrite Ql (U) Negative Normal Comprehens [facility]; [facility] Work Phone: Nitrite Test strip Ql (U) Negative Normal [facility] Work Phone: pH (U) 7.0 [pH] Normal [facility] Work Phone: pH Test strip (U) 7.0 [pH] Normal Compreh ensive [facility] Medicine Work Phone: Protein Ql (U) Negative Normal Comprehens [facility] Work Phone: Protein Ql (U) Negative Normal Comprehens [facility]; [facility] Work Phone: Protein Test strip Ql (U) Negative Normal [facility] Work Phone: Specific gravity Relative Density (U) 1.010 1 Normal [facility] Work Phone: Urobilinogen mass/time (24H U) 2 mg/dL Normal [facility] Work Phone: BILAT SCRN DIGITAL & CADOrde red By: Film Waxer on 06-29-2008 BILAT SCRN DIGITAL & CAD See Note Normal [facility] Work Phone: Comment on above: Exam Number: [id number] MAMMOGRAM, BILATERAL SCREENING DIGITAL AND CAD HISTORYRoutine screening. Full field digital images were obtained in mediolateral oblique andcraniocaudal projections. CAD images were reviewed. The current study is compared to the examinations of May 2005 andDecember 2006. There is a moderate to severe extent fibroglandular parenchymapresent. There is no skin thickening or retraction, architecturaldistortion, or cluster of suspicious microcalcifications. There arescattered benign calcifications present bilaterally. There are areasof asymmetric density high on the left. These are unchanged. If thereis no suspicious palpable abnormality, followup mammogram in 1 year isrecommended. IMPRESSIONThere is no radiographic evidence of malignancy identified. FINAL ASSESSMENTBenign findings. BIRADS Category 2. A letter regarding these results has been sent to the patient. This interpretation was rendered by a radiologist certified under theMammography Quality Standards Act of 1992 (MQSA). The mammograms werealso examined with computer-aided detection software ([employer], [employer] Reported By: ADRIANNE QUINTERO M.D. LIPIDOrdered By: Valery lopez on 06-29-2008 Cholesterol in HDL mass conc 67 mg/dL Normal [facility] Work Phone: Comment on above: Reference Range HDL <40 mg/dL Low HDL Cholesterol HDL >or= 60 mg/dL High HDL Cholesterol Cholesterol in LDL mass conc 153 mg/dL Abnormal 0-130 [facility] Work Phone: Cholesterol in VLDL mass conc 7 mg/dL Normal 5-40 [facility] Work Phone: Cholesterol mass conc 227 mg/dL Abnormal [facility] Work Phone: Comment on above: <200 mg/dL Desirable 200-240 mg/dL Borderline >240 mg/dL High Risk Triglyceride mass conc 37 mg/dL Normal [facility] Work Phone: Comment on above: Serum Triglycerides Reference Interval Normal <150 mg/dL Borderline high 150 - 199 mg/dL High 200 - 499 mg/dL Very High > or = 500 mg/dL TSHOrdered By: System Manage r on 06-29-2008 Thyrotropin Qn 4.36 {uIU/mL} Normal 0.34-4.82 Compreh ensive Internal Medicine Work Phone: COMP METABOLICOrdered By: Sy stem Pump Assembler on 11-02-2007 Albumin mass conc 3.9 g/dL Normal 3.4-5.0 Compreh [facility] Internal Medicine Work Phone: Albumin/Globulin mass ratio 1.3 {RATIO} Normal 0.9-2.4 [facility] Work Phone: ALP enzyme act/vol 79 U/L Normal 50-136 Compre [facility] Internal Medicine Work Phone: ALT enzyme act/vol 40 U/L Normal 30-65 [facility] Internal Medicine Work Phone: Anion gap 3 molar conc 9 mmol/L Normal 5-15 [facility] Work Phone: Anion gap molar conc 9 mmol/L Normal 5-15 [facility] Work Phone: AST enzyme act/vol 23 U/L Normal 15-37 Compre [facility] Internal Medicine Work Phone: Bilirubin mass conc 0.37 mg/dL Normal 0.00-1.00 Compr [facility] Internal Medicine Work Phone: Calcium mass conc 9.3 mg/dL Normal 8.5-10.1 Compreh [facility] Internal Medicine Work Phone: Chloride molar conc 100 mmol/L Normal 98-107 Compr [facility] Internal Medicine Work Phone: CO2 molar conc 29.3 mmol/L Normal 21.0-32.0 Comprehen sive Internal Medicine Work Phone: Creatinine mass conc 0.9 mg/dL Normal 0.6-1.0 [facility] Work Phone: Globulin Calculated mass conc (S) 2.9 g/dL Normal 2.7-4.2 [facility] Work Phone: Globulin mass conc (S) 2.9 g/dL Normal 2.7-4.2 [facility] Work Phone: Glucose mass conc 71 mg/dL Normal 70-110 Compreh ensive [facility] Work Phone: Potassium molar conc 3.9 mmol/L Normal 3.5-5.1 [facility] Work Phone: Protein mass conc 6.8 g/dL Normal 6.4-8.2 Compreh [facility]ive [facility] Work Phone: Sodium molar conc 138 mmol/L Normal 136-145 Compreh [facility]ive [facility] Work Phone: Urea nitrogen mass conc 16 mg/dL Normal 7-18 [facility] Work Phone: Urea nitrogen/Creatinine mass ratio 17.8 {RATIO} Normal 10-20 [facility] Work Phone: LIPIDOrdered By: Valery lopez on 11-02-2007 Cholesterol in HDL mass conc 72 mg/dL Normal [facility] Work Phone: Comment on above: Reference Range HDL <40 mg/dL Low HDL Cholesterol HDL >or= 60 mg/dL High HDL Cholesterol Cholesterol in LDL mass conc 143 mg/dL Abnormal 0-130 [facility] Work Phone: Cholesterol in VLDL mass conc 7 mg/dL Normal 5-40 [facility] Work Phone: Cholesterol mass conc 222 mg/dL Abnormal [facility] Work Phone: Comment on above: <200 mg/dL Desirable 200-240 mg/dL Borderline >240 mg/dL High Risk Triglyceride mass conc 37 mg/dL Normal [facility] Work Phone: Comment on above: Serum Triglycerides Reference Interval Normal <150 mg/dL Borderline high 150 - 199 mg/dL High 200 - 499 mg/dL Very High > or = 500 mg/dL LIPIDOrdered By: System Kymberly jhon on 07-20-2007 Cholesterol in HDL mass conc 69 mg/dL Normal [facility] Work Phone: Comment on above: Reference Range HDL <40 mg/dL Low HDL Cholesterol HDL >or= 60 mg/dL High HDL Cholesterol Cholesterol in LDL mass conc 143 mg/dL Abnormal 0-130 [facility] Work Phone: Cholesterol in VLDL mass conc 8 mg/dL Normal 5-40 [facility] Work Phone: Cholesterol mass conc 220 mg/dL Abnormal [facility] Work Phone: Comment on above: <200 mg/dL Desirable 200-240 mg/dL Borderline >240 mg/dL High Risk Triglyceride mass conc 40 mg/dL Normal [facility] Work Phone: Comment on above: Serum Triglycerides Reference Interval Normal <150 mg/dL Borderline high 150 - 199 mg/dL High 200 - 499 mg/dL Very High > or = 500 mg/dL TSHOrdered By: System Manage r on 07-20-2007 Thyrotropin Qn 3.47 {uIU/mL} Normal 0.34-4.82 Compreh ensive [facility] Medicine Work Phone: BILAT SCRN DIGITAL & CADOrde red By: Film Waxer on 01-18-2007 BILAT SCRN DIGITAL & CAD See Note Normal [facility] Work Phone: Comment on above: Exam Number: [id number] BILATERAL DIGITAL SCREENING MAMMOGRAM WITH COMPUTER ASSISTED DETECTION COMPARISONFebruary 2003 and also from June 04, 2005. MLO and CC views were acquired bilaterally. The breasts are comprisedof highly dense tissue. Computed assisted detection was used. There are benign scattered calcifications bilaterally. No suspiciousclusters of microcalcifications, architectural distortion, or masses. There has been on appreciable change from previous studies. IMPRESSION1. No mammographic evidence of malignancy.2. BIRADS Category 2 - Benign. Screening study in 1 year. A letter regarding these results has been sent to the patient. This interpretation was rendered by a radiologist certified underthe Mammography Quality Standards Act of 1992 (MQSA). The mammogramswere also examined with computer-aided detection software([employer].). Reported By: TANIA HARRIS M.D. LIPIDOrdered By: its learning john on 12-21-2006 Cholesterol in HDL mass conc 78 mg/dL Normal [facility] Work Phone: Comment on above: Reference Range HDL <40 mg/dL Low HDL Cholesterol HDL >or= 60 mg/dL High HDL Cholesterol Cholesterol in LDL mass conc 164 mg/dL Abnormal 0-130 [facility] Work Phone: Cholesterol in VLDL mass conc 6 mg/dL Normal 5-40 [facility] Work Phone: Cholesterol mass conc 248 mg/dL Abnormal [facility] Work Phone: Comment on above: <200 mg/dL Desirable 200-240 mg/dL Borderline >240 mg/dL High Risk Triglyceride mass conc 29 mg/dL Normal [facility] Work Phone: Comment on above: Serum Triglycerides Reference Interval Normal <150 mg/dL Borderline high 150 - 199 mg/dL High 200 - 499 mg/dL Very High > or = 500 mg/dL TSHOrdered By: System [employer] r on 12-21-2006 Thyrotropin Qn 4.20 {uIU/mL} Normal 0.34-4.82 Compreh ensive [facility] Medicine Work Phone: Vital Signs Date Time Vital Sign Value Performing Clinician Facility 05-08-2024 13:30-[address] ANTONELLA PATEL MD [facility] 05-08-2024 13:30-[address] ANTONELLA PATEL MD [facility] 05-08-2024 13:30-0500 Body height 167.[address] ANTONELLA PATEL MD [facility] 05-08-2024 13:30-0500 Body weight [address] ANTONELLA PATEL MD [facility] 05-08-2024 13:30-0500 Body weight 22.43 kg/m2 DR ANTONELLA PATEL MD [facility] 05-08-2024 13:30-0500 Diastolic Blood Pressure Non-Invasive 67 mm[Hg] DR ANTONELLA PATEL MD [facility] 05-08-2024 13:30-0500 Heart rate 64 /min DR ANTONELLA PATEL MD [facility] 05-08-2024 13:30-0500 Respiratory rate 16 /min DR ANTONELLA PATEL MD [facility] 05-08-2024 13:30-0500 Systolic Blood Pressure Non-Invasive 102 mm[Hg] DR ANTONELLA PATEL MD [facility] 03-15-2023 09:49-0400 Body height 166.37 cm Jasper Chong MD Work Phone: [facility]; [facility] Work Phone: 03-15-2023 09:49-0400 Body mass index (BMI) [Ratio] 24.58 kg/m2 Jasper Chong MD Work Phone: [facility]; [facility] Work Phone: 03-15-2023 09:49-0400 Body surface area Derived from formula 1.76 m2 Jasper Chong MD Work Phone: [facility]; [facility] Work Phone: 03-15-2023 09:49-0400 Body temperature 97.9 [degF] Jasper Chong MD Work Phone: [facility]; [facility] Work Phone: 03-15-2023 09:49-0400 Body weight 68.04 kg Jasper Chong MD Work Phone: [facility]; [facility] Work Phone: 03-15-2023 09:49-0400 Diastolic blood pressure 80 mm[Hg] Jasper Chong MD Work Phone: [facility]; [facility] Work Phone: 03-15-2023 09:49-0400 Heart rate 67 /min Jasper Chong MD Work Phone: [facility]; [facility] Work Phone: 03-15-2023 09:49-0400 Respiratory rate 16 /min Jasper Chong MD Work Phone: [facility]; [facility] Work Phone: 03-15-2023 09:49-0400 SaO2% (BldA) [Mass fraction] 96 % Jasper Chong MD Work Phone: [facility]; [facility] Work Phone: 03-15-2023 09:49-0400 Systolic blood pressure 130 mm[Hg] Jasper Chong MD Work Phone: [facility]; [facility] Work Phone: 12-17-2022 13:11-0400 Body height 166.37 cm Joana Bowen LPN [facility]; [facility] Work Phone: 12-17-2022 13:11-0400 Body mass index (BMI) [Ratio] 23.93 kg/m2 Joana Bowen LPN [facility]; [facility] Work Phone: 12-17-2022 13:11-0400 Body surface area Derived from formula 1.74 m2 Joana Bowen LPN [facility]; [facility] Work Phone: 12-17-2022 13:11-0400 Body temperature 98.1 [degF] Joana Bowen LPN [facility]; [facility] Work Phone: 12-17-2022 13:11-0400 Body weight 66.23 kg Joana Bowen LPN [facility]; [facility] Work Phone: 12-17-2022 13:11-0400 Diastolic blood pressure 68 mm[Hg] Joana Andrés LPN [facility]; [facility] Work Phone: 12-17-2022 13:11-0400 Heart rate 89 /min Joana Andrés LPN [facility]; [facility] Work Phone: 12-17-2022 13:110400 Respiratory rate 16 /min Joana Andrés LPN [facility]; [facility] Work Phone: 12-17-2022 13:110400 SaO2% (BldA) [Mass fraction] 96 % Joana Bowen LPN [facility]; [facility] Work Phone: 12-17-2022 13:11-0400 Systolic blood pressure 100 mm[Hg] Joana Bowen LPN [facility]; [facility] Work Phone: 12-07-2022 09:23-0400 Body height 166.37 cm Maria Elena Suarez LPN [facility]; [facility] Work Phone: 12-07-2022 09:23-0400 Body mass index (BMI) [Ratio] 24.91 kg/m2 Maria Elena Suarez LPN [facility]; [facility] Work Phone: 12-07-2022 09:23-0400 Body surface area Derived from formula 1.77 m2 Maria Elena Suarez LPN [facility]; [facility] Work Phone: 12-07-2022 09:23-0400 Body temperature 98.4 [degF] Maria Elena Suarez LPN [facility]; [facility] Work Phone: 12-07-2022 09:23-0400 Body weight 68.95 kg Maria Elena Suarez LPN [facility]; [facility] Work Phone: 12-07-2022 09:23-0400 Diastolic blood pressure 66 mm[Hg] Maria Elena Suarez LPN [facility]; [facility] Work Phone: 12-07-2022 09:23-0400 Heart rate 80 /min Maria Elena Suarez LPN [facility]; [facility] Work Phone: 12-07-2022 09:23-0400 Respiratory rate 16 /min Maria Elena Suarez LPN [facility]; [facility] Work Phone: 12-07-2022 09:23-0400 SaO2% (BldA) [Mass fraction] 97 % Maria Elena Suarez LPN [facility]; [facility] Work Phone: 12-07-2022 09:23-0400 Systolic blood pressure 114 mm[Hg] Maria Elena Suarez LPN [facility]; [facility] Work Phone: 08-18-2022 12:46-0500 Body height 166.37 cm Joana Bowen LPN [facility]; [facility] Work Phone: 08-18-2022 12:46-0500 Body mass index (BMI) [Ratio] 24.91 kg/m2 Joana Bowen LPN [facility]; [facility] Work Phone: 08-18-2022 12:46-0500 Body surface area Derived from formula 1.77 m2 Joana Bowen LPN [facility]; [facility] Work Phone: 08-18-2022 12:46-0500 Body temperature 98.1 [degF] Joana Bowen LPN [facility]; [facility] Work Phone: 08-18-2022 12:46-0500 Body weight 68.95 kg Joana Bowen LPN [facility]; [facility] Work Phone: 08-18-2022 12:46-0500 Diastolic blood pressure 70 mm[Hg] Joana Bowen LPN [facility]; [facility] Work Phone: 08-18-2022 12:46-0500 Heart rate 78 /min Joana Bowen LPN [facility]; [facility] Work Phone: 08-18-2022 12:46-0500 Respiratory rate 16 /min Joana Bowen [facility]; [facility] Work Phone: 08-18-2022 12:46-0500 SaO2% (BldA) [Mass fraction] 97 % Joana Bowen [facility]; [facility] Work Phone: 08-18-2022 12:46-0500 Systolic blood pressure 108 mm[Hg] Joana Bowen [facility]; [facility] Work Phone: 06-05-2022 09:58-0500 Body height 166.37 cm [facility]; [facility] Work Phone: 06-05-2022 09:58-0500 Body mass index (BMI) [Ratio] 24.09 kg/m2 [facility]; [facility] Work Phone: 06-05-2022 09:58-0500 Body surface area Derived from formula 1.75 m2 [facility]; [facility] Work Phone: 06-05-2022 09:58-0500 Body temperature 97.7 [degF] [facility]; [facility] Work Phone: 06-05-2022 09:58-0500 Body weight 66.68 kg [facility]; [facility] Work Phone: 06-05-2022 09:58-0500 Diastolic blood pressure 62 mm[Hg] [facility]; [facility] Work Phone: 06-05-2022 09:58-0500 Heart rate 57 /min [facility]; [facility] Work Phone: 06-05-2022 09:58-0500 Respiratory rate 16 /min [facility]; [facility] Work Phone: 06-05-2022 09:58-0500 SaO2% (BldA) [Mass fraction] 98 % Jazmin Del Cid [facility]; [facility] Work Phone: 06-05-2022 09:58-0500 Systolic blood pressure 106 mm[Hg] Jazmin Del Cid [facility]; [facility] Work Phone: 05-22-2022 09:18-0500 Body height 166.37 cm Jazmin Del Cid [facility]; [facility] Work Phone: 05-22-2022 09:18-0500 Body mass index (BMI) [Ratio] 24.09 kg/m2 [facility] Work Phone: 05-22-2022 09:18-0500 Body surface area Derived from formula 1.75 m2 Jazmin Del Cid [facility]; [facility] Work Phone: 05-22-2022 09:18-0500 Body temperature 98.5 [degF] Jazmin Del Cid [facility]; [facility] Work Phone: 05-22-2022 09:18-0500 Body weight 66.68 kg [facility]; [facility] Work Phone: 05-22-2022 09:18-0500 Diastolic blood pressure 62 mm[Hg] Jazmin Del Cid [facility]; [facility] Work Phone: 05-22-2022 09:18-0500 Heart rate 62 /min Jazmin Del Cid [facility]; [facility] Work Phone: 05-22-2022 09:18-0500 Respiratory rate 16 /min [facility] Work Phone: 05-22-2022 09:18-0500 SaO2% (BldA) [Mass fraction] 98 % [facility]; [facility] Work Phone: 05-22-2022 09:18-0500 Systolic blood pressure 106 mm[Hg] Jazmin Del Cid NURYS [facility]; [facility] Work Phone: 03-17-2022 13:49-0400 Body height 165.1 cm [facility] Work Phone: 01-09-2022 13:29-0400 Body height 166.37 cm Maria Elena Slarb [employer] [facility]; [facility] Work Phone: 01-09-2022 13:29-0400 Body mass index (BMI) [Ratio] 24.09 kg/m2 Maria Elena Slarb [employer] [facility]; [facility] Work Phone: 01-09-2022 13:29-0400 Body surface area Derived from formula 1.75 m2 Maria Elena Slarb [employer] [facility]; [facility] Work Phone: 01-09-2022 13:29-0400 Body temperature 97.1 [degF] Maria Elena Slarb [employer] [facility]; [facility] Work Phone: 01-09-2022 13:29-0400 Body weight 66.68 kg Maria Elena Slarb [employer] [facility]; [facility] Work Phone: 01-09-2022 13:29-0400 Diastolic blood pressure 68 mm[Hg] Maria Elena Slarb [employer] [facility]; [facility] Work Phone: 01-09-2022 13:29-0400 Heart rate 78 /min Maria Elena Slarb [employer] [facility]; [facility] Work Phone: 01-09-2022 13:29-0400 Respiratory rate 16 /min Maria Elena Slarb [employer] [facility]; [facility] Work Phone: 01-09-2022 13:29-0400 SaO2% (BldA) [Mass fraction] 96 % Maria Elena Slarb [employer] [facility]; [facility] Work Phone: 01-09-2022 13:29-0400 Systolic blood pressure 112 mm[Hg] Maria Elena Slarb [employer] [facility]; [facility] Work Phone: 09-04-2021 07:18-0400 Body height 166.37 cm Susana Roy MA [facility]; [facility] Work Phone: 09-04-2021 07:18-0400 Body mass index (BMI) [Ratio] 24.09 kg/m2 Susana Roy MA [facility]; [facility] Work Phone: 09-04-2021 07:18-0400 Body surface area Derived from formula 1.75 m2 Susana Roy MA [facility]; [facility] Work Phone: 09-04-2021 07:18-0400 Body temperature 97.1 [degF] Susana Roy MA [facility]; [facility] Work Phone: 09-04-2021 07:18-0400 Body weight 66.68 kg Susana Roy MA [facility]; [facility] Work Phone: 09-04-2021 07:18-0400 Diastolic blood pressure 72 mm[Hg] Susana Roy MA [facility]; [facility] Work Phone: 09-04-2021 07:18-0400 Heart rate 74 /min Susana Roy MA [facility]; [facility] Work Phone: 09-04-2021 07:18-0400 Respiratory rate 16 /min Susana Roy MA [facility]; [facility] Work Phone: 09-04-2021 07:18-0400 SaO2% (BldA) [Mass fraction] 98 % Susana Roy MA [facility]; [facility] Work Phone: 09-04-2021 07:18-0400 Systolic blood pressure 116 mm[Hg] Susana Roy MA [facility]; [facility] Work Phone: 02-27-2021 14:17-0400 Body height 166.37 cm EULALIA Fuentes LPN [facility]; [facility] Work Phone: 02-27-2021 14:17-0400 Body mass index (BMI) [Ratio] 24.09 kg/m2 EULALIA Fuentes LPN [facility]; [facility] Work Phone: 02-27-2021 14:17-0400 Body surface area Derived from formula 1.75 m2 EULALIA Fuentes LPN [facility]; [facility] Work Phone: 02-27-2021 14:17-0400 Body temperature 97.9 [degF] EULALIA Fuentes LPN [facility]; [facility] Work Phone: Comment on above: Method: Temporal 02-27-2021 14:17-040 Body weight 66.68 kg EULALIA Fuentes LPN [facility]; [facility] Work Phone: 02-27-2021 14:17-040 Diastolic blood pressure 70 mm[Hg] EULALIA Fuentes LPN [facility]; [facility] Work Phone: Comment on above: Patient Position: Sitting; Cuff Location : Left Arm; Cuff Size: Standard 02-27-2021 14:17-0400 Heart rate 70 /min EULALIA Fuentes LPN [facility]; [facility] Work Phone: Comment on above: Pattern: Regular 02-27-2021 14:17-0400 Respiratory rate 20 /min EULALIA Fuentes LPN [facility]; [facility] Work Phone: Comment on above: Pattern: Unlabored 02-27-2021 14:17-0400 SaO2% (BldA) [Mass fraction] 98 % EULALIA Fuentes LPN [facility]; [facility] Work Phone: Comment on above: Room air 02-27-2021 14:17-0400 Systolic blood pressure 110 mm[Hg] EULALIA Fuentes LPN [facility]; [facility] Work Phone: Comment on above: Patient Position: Sitting; Cuff Location : Left Arm; Cuff Size: Standard 01-27-2021 12:47-0400 Body height 166.37 cm EULALIA Fuentes LPN [facility]; [facility] Work Phone: 01-27-2021 12:47-0400 Body mass index (BMI) [Ratio] 24.09 kg/m2 EULALIA Fuentes LPN [facility]; [facility] Work Phone: 01-27-2021 12:47-0400 Body surface area Derived from formula 1.75 m2 EULALIA Fuentes LPN [facility]; [facility] Work Phone: 01-27-2021 12:47-0400 Body temperature 98.2 [degF] EULALIA Fuentes LPN [facility]; [facility] Work Phone: Comment on above: Method: Temporal 01-27-2021 12:47-0400 Body weight 66.68 kg EULALIA Fuentes LPN [facility]; [facility] Work Phone: 01-27-2021 12:47-0400 Diastolic blood pressure 74 mm[Hg] EULALIA Fuentes LPN [facility]; [facility] Work Phone: Comment on above: Patient Position: Sitting; Cuff Location : Left Arm; Cuff Size: Standard 01-27-2021 12:47-0400 Heart rate 80 /min EULALIA Fuentes LPN [facility]; [facility] Work Phone: Comment on above: Pattern: Regular 01-27-2021 12:47-0400 Respiratory rate 20 /min EULALIA Fuentes LPN [facility]; [facility] Work Phone: Comment on above: Pattern: Unlabored 01-27-2021 12:47-0400 SaO2% (BldA) [Mass fraction] 97 % EULALIA Fuentes LPN [facility]; [facility] Work Phone: Comment on above: Room air 01-27-2021 12:47-0400 Systolic blood pressure 114 mm[Hg] EULALIA Fuentes LPN [facility]; [facility] Work Phone: Comment on above: Patient Position: Sitting; Cuff Location : Left Arm; Cuff Size: Standard 07-02-2020 08:04-0500 BMI (Body Mass Index) 24.09 kg/m2 Jazmin Del Cid CMA [facility]; [facility] Work Phone: 07-02-2020 08:04-0500 Body Temperature 96.9 [degF] Jazmin Del Cid [facility]; [facility] Work Phone: Comment on above: Method: Thermal Scan 07-02-2020 08:04-0500 Body weight 66.68 kg Jazmin Del Cid [facility]; [facility] Work Phone: 07-02-2020 08:04-0500 BP Diastolic 62 mm[Hg] Jazmin Del Cid [facility]; [facility] Work Phone: Comment on above: Patient Position: Sitting; Cuff Location : Left Arm; Cuff Size: Standard 07-02-2020 08:04-0500 BP Systolic 98 mm[Hg] Jazmin Del Cid [facility]; [facility] Work Phone: Comment on above: Patient Position: Sitting; Cuff Location : Left Arm; Cuff Size: Standard 07-02-2020 08:04-0500 BSA (Body Surface Area) 1.75 m2 Jazmin Del Cid [facility]; [facility] Work Phone: 07-02-2020 08:04-0500 Height 166.37 cm Jazmin Del Cid [facility]; [facility] Work Phone: 07-02-2020 08:04-0500 Pulse (Heart Rate) 64 /min Jazmin Del Cid [facility]; [facility] Work Phone: Comment on above: Pattern: Regular 07-02-2020 08:04-0500 Pulse Oximetry 98 % Jasper Chong [facility]; [facility] Work Phone: Comment on above: Room air 07-02-2020 08:04-0500 Respiratory Rate 16 /min Jazmin Del Cid [facility]; [facility] Work Phone: Comment on above: Pattern: Unlabored 07-02-2020 08:04-0500 SaO2% (BldA) [Mass fraction] 98 % Jazmin Del Cid [facility]; [facility] Work Phone: Comment on above: Room air 04-26-2020 08:14-0500 Body Temperature 99.7 [degF] Maria Elena Suarez [facility] Work Phone: Comment on above: pt reported temperature 01-02-2020 09:10-0400 BMI (Body Mass Index) 24.42 kg/m2 EULALIA Fuentes [facility] Work Phone: 01-02-2020 09:10-0400 Body Temperature 97.6 [degF] EULALIA Fuentes [facility] Work Phone: Comment on above: Method: Temporal 01-02-2020 09:10-0400 Body weight 67.59 kg EULALIA Fuentes [facility] Work Phone: 01-02-2020 09:10-0400 BP Diastolic 70 mm[Hg] UELALIA Fuentes [facility] Work Phone: Comment on above: Patient Position: Sitting; Cuff Location : Left Arm; Cuff Size: Standard 01-02-2020 09:10-0400 BP Systolic 112 mm[Hg] EULALIA Fuentes [facility] Work Phone: Comment on above: Patient Position: Sitting; Cuff Location : Left Arm; Cuff Size: Standard 01-02-2020 09:10-0400 BSA (Body Surface Area) 1.76 m2 EULALIA Fuentes [facility] Work Phone: 01-02-2020 09:10-0400 Height 166.37 cm EULALIA Fuentes [facility] Work Phone: 01-02-2020 09:10-0400 Pulse (Heart Rate) 74 /min EULALIA Fuentes [facility] Work Phone: Comment on above: Pattern: Regular 01-02-2020 09:10-0400 Pulse Oximetry 98 % Jasper Chong [facility] Work Phone: Comment on above: Room air 01-02-2020 09:10-0400 Respiratory Rate 20 /min EULALIA Fuentes [facility] Work Phone: Comment on above: Pattern: Unlabored 01-02-2020 09:10-0400 SaO2% (BldA) [Mass fraction] 98 % EULALIA Fuentes LPN [facility]; [facility] Work Phone: Comment on above: Room air 07-10-2019 08:00-0500 BMI (Body Mass Index) 24.91 kg/m2 Genet Martínez RN [facility] Internal Medicine Work Phone: 07-10-2019 08:00-0500 Body Temperature 97.8 [degF] Genet Martínez RN [facility] Work Phone: Comment on above: Method: Temporal 07-10-2019 08:00-0500 Body weight 68.95 kg Genet Martínez RN [facility] Work Phone: 07-10-2019 08:00-0500 BP Diastolic 74 mm[Hg] Genet Martínez RN [facility] Work Phone: Comment on above: Patient Position: Sitting; Cuff Location : Left Arm; Cuff Size: Standard 07-10-2019 08:00-0500 BP Systolic 122 mm[Hg] Genet Martínez RN [facility] Work Phone: Comment on above: Patient Position: Sitting; Cuff Location : Left Arm; Cuff Size: Standard 07-10-2019 08:00-0500 BSA (Body Surface Area) 1.77 m2 Genet Martínez RN [facility] Work Phone: 07-10-2019 08:00-0500 Height 166.37 cm Genet Martínez RN [facility] Work Phone: 07-10-2019 08:00-0500 Pulse (Heart Rate) 74 /min Genet Martínez RN [facility] Work Phone: Comment on above: Pattern: Regular 07-10-2019 08:00-0500 Pulse Oximetry 97 % Jasper Chong [facility] Work Phone: Comment on above: Room air 07-10-2019 08:00-0500 Respiratory Rate 16 /min Genet Martínez RN [facility] Work Phone: Comment on above: Pattern: Unlabored 07-10-2019 08:00-0500 SaO2% (BldA) [Mass fraction] 97 % Genet Martínez RN [facility]; [facility] Work Phone: Comment on above: Room air 01-13-2019 07:03-0400 BMI (Body Mass Index) 24.25 kg/m2 EULALIA Fuentes VOLODYMYR [facility] Work Phone: 01-13-2019 07:03-0400 Body Temperature 97.9 [degF] EULALIA Fuentes VOLODYMYR [facility] Work Phone: Comment on above: Method: Temporal 01-13-2019 07:03-0400 Body weight 67.13 kg EULALIA Alfredo HELM [facility] Work Phone: 01-13-2019 07:03-0400 BP Diastolic 70 mm[Hg] EULALIA Alfredo HELM [facility] Work Phone: Comment on above: Patient Position: Sitting; Cuff Location : Left Arm; Cuff Size: Standard 01-13-2019 07:03-0400 BP Systolic 110 mm[Hg] EULALIA Alfredo HELM [facility] Work Phone: Comment on above: Patient Position: Sitting; Cuff Location : Left Arm; Cuff Size: Standard 01-13-2019 07:03-0400 BSA (Body Surface Area) 1.75 m2 EULALIA Alfredo HELM [facility] Work Phone: 01-13-2019 07:03-0400 Height 166.37 cm EULALIAADIA Fuentes LPN [facility] Medicine Work Phone: 01-13-2019 07:03-0400 Pulse (Heart Rate) 74 /min EULALIA Alfredo HELM [facility] Work Phone: Comment on above: Pattern: Regular 01-13-2019 07:03-0400 Pulse Oximetry 98 % Jasper Chong [facility] Work Phone: Comment on above: Room air 01-13-2019 07:03-0400 Respiratory Rate 20 /min EULALIA Fuentes VOLODYMYR [facility] Work Phone: Comment on above: Pattern: Unlabored 01-13-2019 07:03-0400 SaO2% (BldA) [Mass fraction] 98 % EULALIA Fuentes LPN [facility]; [facility] Work Phone: Comment on above: Room air 07-14-2018 06:55-0500 BMI (Body Mass Index) 23.76 kg/m2 EULALIA Fuentes LPN [facility] Work Phone: 07-14-2018 06:55-0500 Body Temperature 97.4 [degF] EULALIA Fuentes LPN [facility] Work Phone: Comment on above: Method: Temporal 07-14-2018 06:55-0500 Body weight 65.77 kg EULALIA Fuentes LPN [facility] Work Phone: 07-14-2018 06:55-0500 BP Diastolic 70 mm[Hg] EULALIA Fuentes LPN [facility] Work Phone: Comment on above: Patient Position: Sitting; Cuff Location : Left Arm; Cuff Size: Standard 07-14-2018 06:55-0500 BP Systolic 104 mm[Hg] EULALIA Fuentes LPN [facility] Work Phone: Comment on above: Patient Position: Sitting; Cuff Location : Left Arm; Cuff Size: Standard 07-14-2018 06:55-0500 BSA (Body Surface Area) 1.74 m2 EULALIA uFentes LPN [facility] Work Phone: 07-14-2018 06:55-0500 Height 166.37 cm EULALIA Fuentes LPN [facility] Work Phone: 07-14-2018 06:55-0500 Pulse (Heart Rate) 70 /min EULALIA Fuentes LPN [facility] Work Phone: Comment on above: Pattern: Regular 07-14-2018 06:55-0500 Pulse Oximetry 95 % Jasper Chong [facility] Work Phone: Comment on above: Room air 07-14-2018 06:55-0500 Respiratory Rate 18 /min EULALIA Fuentes LPN [facility] Work Phone: Comment on above: Pattern: Unlabored 07-14-2018 06:55-0500 SaO2% (BldA) [Mass fraction] 95 % EULALIAADIA Fuentes LPN [facility]; [facility] Work Phone: Comment on above: Room air 07-14-2018 06:55-0500 Weight 65.77 kg Jasper Chong [facility] Work Phone: 06-18-2017 07:40-0500 BMI (Body Mass Index) 23.08 kg/m2 [facility] Work Phone: 06-18-2017 07:40-0500 Body Temperature 98.7 [degF] Angelina Castellanos [facility] Work Phone: Comment on above: Method: Tympanic 06-18-2017 07:40-0500 Body weight 63.5 kg Angelina Castellanos [facility] Work Phone: 06-18-2017 07:40-0500 BP Diastolic 66 mm[Hg] Angelina Castellanos [facility] Work Phone: Comment on above: Patient Position: Sitting; Cuff Location : Left Arm; Cuff Size: Standard 06-18-2017 07:40-0500 BP Systolic 116 mm[Hg] Angelina Castellanos [facility] Work Phone: Comment on above: Patient Position: Sitting; Cuff Location : Left Arm; Cuff Size: Standard 06-18-2017 07:40-0500 BSA (Body Surface Area) 1.71 m2 Angelina Castellanos [facility] Work Phone: 06-18-2017 07:40-0500 Height 165.86 cm Angelina Castellanos [facility] Work Phone: 06-18-2017 07:40-0500 Pulse (Heart Rate) 72 /min Angelina Castellanos [facility] Work Phone: Comment on above: Pattern: Regular 06-18-2017 07:40-0500 Pulse Oximetry 98 % Jasper Chong [facility] Medicine Work Phone: Comment on above: Room air 06-18-2017 07:40-0500 Respiratory Rate 18 /min Angelina Castellanos [facility] Work Phone: Comment on above: Pattern: Unlabored 06-18-2017 07:40-0500 SaO2% (BldA) [Mass fraction] 98 % Angelinamarina Castellanos [facility]; [facility] Work Phone: Comment on above: Room air 06-18-2017 07:40-0500 Weight 63.5 kg Jasper Chong [facility] Medicine Work Phone: 06-18-2017 06:42-0500 BMI (Body Mass Index) 23.08 kg/m2 EULALIA Fuentes VOLODYMYR [facility] Medicine Work Phone: 06-18-2017 06:42-0500 Body weight 63.5 kg EULALIA Fuentes [employer] [facility] Internal Medicine Work Phone: 06-18-2017 06:42-0500 BSA (Body Surface Area) 1.71 m2 EULALIA Fuentes VOLODYMYR [facility] Medicine Work Phone: 06-18-2017 06:42-0500 Height 165.86 cm EULALIA Fuentes VOLODYMYR [facility] Medicine Work Phone: 06-18-2017 06:42-0500 Weight 63.5 kg Jasper Chong [facility] Medicine Work Phone: 12-17-2016 08:48-0400 BMI (Body Mass Index) 23.08 kg/m2 Angelina Castellanos [facility] Internal Medicine Work Phone: 12-17-2016 08:48-0400 Body Temperature 98.1 [degF] Angelinamarina Castellanos [facility] Internal Medicine Work Phone: Comment on above: Method: Tympanic 12-17-2016 08:48-0400 Body weight 64.86 kg Angelinamarina Castellanos [facility] Medicine Work Phone: 12-17-2016 08:48-0400 BP Diastolic 62 mm[Hg] Angelinamarina Humphriesy [facility] Internal Medicine Work Phone: Comment on above: Patient Position: Sitting; Cuff Location : Left Arm; Cuff Size: Standard 12-17-2016 08:48-0400 BP Systolic 124 mm[Hg] Angelinamarina Humphriesy [facility] Internal Medicine Work Phone: Comment on above: Patient Position: Sitting; Cuff Location : Left Arm; Cuff Size: Standard 12-17-2016 08:48-0400 BSA (Body Surface Area) 1.73 m2 Angelina Castellanos [facility] Medicine Work Phone: 12-17-2016 08:48-0400 Height 167.64 cm Angelina Castellanos [facility] Medicine Work Phone: 12-17-2016 08:48-0400 Pulse (Heart Rate) 67 /min Angelina Castellanos [facility] Medicine Work Phone: Comment on above: Pattern: Regular 12-17-2016 08:48-0400 Pulse Oximetry 97 % Jasper Chong [facility] Internal Medicine Work Phone: Comment on above: Room air 12-17-2016 08:48-0400 Respiratory Rate 18 /min Angelina Castellanos [facility] Medicine Work Phone: Comment on above: Pattern: Unlabored 12-17-2016 08:48-0400 SaO2% (BldA) [Mass fraction] 97 % [facility] Work Phone: Comment on above: Room air 12-17-2016 08:48-0400 Weight 64.86 kg Jasper Chong [facility] Internal Medicine Work Phone: 06-18-2016 07:06-0500 BMI (Body Mass Index) 23.24 kg/m2 [facility] Work Phone: 06-18-2016 07:06-0500 Body Temperature 98 [degF] [facility] Medicine Work Phone: 06-18-2016 07:06-0500 Body weight 65.32 kg [facility] Work Phone: 06-18-2016 07:06-0500 BP Diastolic 64 mm[Hg] [facility] Internal Medicine Work Phone: Comment on above: Patient Position: Sitting; Cuff Location : Left Arm; Cuff Size: Standard 06-18-2016 07:06-0500 BP Systolic 110 mm[Hg] [facility] Internal Medicine Work Phone: Comment on above: Patient Position: Sitting; Cuff Location : Left Arm; Cuff Size: Standard 06-18-2016 07:06-0500 BSA (Body Surface Area) 1.74 m2 Jaems Lieberman [facility] Internal Medicine Work Phone: 06-18-2016 07:06-0500 Height 167.64 cm James Lieberman [facility] Internal Medicine Work Phone: 06-18-2016 07:06-0500 Pulse (Heart Rate) 66 /min James Lieberman [facility] Internal Medicine Work Phone: Comment on above: Pattern: Regular 06-18-2016 07:06-0500 Pulse Oximetry 96 % [facility] Work Phone: Comment on above: Room air 06-18-2016 07:06-0500 Respiratory Rate 16 /min James Lieberman [facility] Internal Medicine Work Phone: Comment on above: Pattern: Unlabored 06-18-2016 07:06-0500 SaO2% (BldA) [Mass fraction] 96 % James Lieberman [facility]; [facility] Work Phone: Comment on above: Room air 06-18-2016 07:06-0500 Weight 65.32 kg Jasper Chong [facility] Internal Medicine Work Phone: 12-02-2015 07:56-0400 BMI (Body Mass Index) 24.37 kg/m2 EULALIA Fuentes LPN [facility] Internal Medicine Work Phone: 12-02-2015 07:56-0400 Body Temperature 97.6 [degF] EULALIA Fuentes LPN [facility] Internal Medicine Work Phone: Comment on above: Method: Temporal 12-02-2015 07:56-0400 Body weight 68.49 kg EULALIA Fuentes VOLODYMYR [facility] Internal Medicine Work Phone: 12-02-2015 07:56-0400 BP Diastolic 74 mm[Hg] EULALIA Fuentes LPN [facility] Internal Medicine Work Phone: Comment on above: Patient Position: Sitting; Cuff Location : Left Arm; Cuff Size: Standard 12-02-2015 07:56-0400 BP Systolic 116 mm[Hg] EULALIA Fuentes VOLODYMYR [facility] Internal Medicine Work Phone: Comment on above: Patient Position: Sitting; Cuff Location : Left Arm; Cuff Size: Standard 12-02-2015 07:56-0400 BSA (Body Surface Area) 1.78 m2 EULALIAADIA Fuentes LPN [facility] Internal Medicine Work Phone: 12-02-2015 07:56-0400 Height 167.64 cm EULALIA Fuentes LPN [facility] Internal Medicine Work Phone: 12-02-2015 07:56-0400 Pulse (Heart Rate) 74 /min EULALIA Fuentes LPN [facility] Internal Medicine Work Phone: Comment on above: Pattern: Regular 12-02-2015 07:56-0400 Pulse Oximetry 98 % Jasper Chong [facility] Internal Medicine Work Phone: Comment on above: Room air 12-02-2015 07:56-0400 Respiratory Rate 20 /min EULALIA Alfredo [facility]MYR [facility] Work Phone: Comment on above: Pattern: Unlabored 12-02-2015 07:56-0400 SaO2% (BldA) [Mass fraction] 98 % EULALIAADIA Fuentes LPN [facility]; [facility] Work Phone: Comment on above: Room air 12-02-2015 07:56-0400 Weight 68.49 kg Jasper Chong [facility] Internal Medicine Work Phone: 07-29-2015 14:12-0500 BMI (Body Mass Index) 24.23 kg/m2 Maria Elena Suarez LPN [facility] Internal Medicine Work Phone: 07-29-2015 14:12-0500 Body Temperature 97.2 [degF] Maria Elena Suarez LPN [facility] Internal Medicine Work Phone: 07-29-2015 14:12-0500 Body weight 68.1 kg Maria Elena Suarez LPN [facility] Internal Medicine Work Phone: 07-29-2015 14:12-0500 BP Diastolic 84 mm[Hg] Maria Elena Slarb [employer] [facility] Work Phone: Comment on above: Patient Position: Sitting; Cuff Location : Left Arm; Cuff Size: Standard 07-29-2015 14:12-0500 BP Systolic 126 mm[Hg] Maria Elena Suarez [employer] [facility] Work Phone: Comment on above: Patient Position: Sitting; Cuff Location : Left Arm; Cuff Size: Standard 07-29-2015 14:12-0500 BSA (Body Surface Area) 1.77 m2 Maria Elena Suarez [employer] [facility] Work Phone: 07-29-2015 14:12-0500 Height 167.64 cm Maria Elena Callumrb [employer] [facility] Work Phone: 07-29-2015 14:12-0500 Pulse (Heart Rate) 82 /min Maria Elena Suarez LPN [facility] Work Phone: Comment on above: Pattern: Regular 07-29-2015 14:12-0500 Pulse Oximetry 97 % Jasper Hauserjenniechristie [facility] Work Phone: Comment on above: Room air 07-29-2015 14:12-0500 Respiratory Rate 16 /min Maria Elena Callumrb [employer] [facility] Work Phone: Comment on above: Pattern: Unlabored 07-29-2015 14:12-0500 SaO2% (BldA) [Mass fraction] 97 % Maria Elena Callumrb [employer] [facility]; [facility] Work Phone: Comment on above: Room air 07-29-2015 14:12-0500 Weight 68.1 kg Jasper Chong [facility] Work Phone: 06-18-2015 08:32-0500 BMI (Body Mass Index) 24.23 kg/m2 Maria Elena Callumrb [employer] [facility] Work Phone: 06-18-2015 08:32-0500 Body Temperature 96.5 [degF] Maria Elena Suarez [employer] [facility] Work Phone: 06-18-2015 08:32-0500 Body weight 68.1 kg Maria Elena Callumrb [employer] [facility] Work Phone: 06-18-2015 08:32-0500 BP Diastolic 62 mm[Hg] Maria Elena Slarb [employer] [facility] Work Phone: Comment on above: Patient Position: Sitting; Cuff Location : Left Arm; Cuff Size: Standard 06-18-2015 08:32-0500 BP Systolic 112 mm[Hg] Maria Elena Callumrb [employer] [facility] Work Phone: Comment on above: Patient Position: Sitting; Cuff Location : Left Arm; Cuff Size: Standard 06-18-2015 08:32-0500 BSA (Body Surface Area) 1.77 m2 Maria Elena Callumrb [employer] [facility] Work Phone: 06-18-2015 08:32-0500 Height 167.64 cm Maria Elena Callumrb [employer] [facility] Work Phone: 06-18-2015 08:32-0500 Pulse (Heart Rate) 72 /min Maria Elena Callumrb [employer] [facility] Work Phone: Comment on above: Pattern: Regular 06-18-2015 08:32-0500 Pulse Oximetry 98 % Jasper Castillo [facility] Work Phone: Comment on above: Room air 06-18-2015 08:32-0500 Respiratory Rate 18 /min Maria Elena Callumrb [employer] [facility] Work Phone: Comment on above: Pattern: Unlabored 06-18-2015 08:32-0500 SaO2% (BldA) [Mass fraction] 98 % Maria Elena Slarb [employer] [facility]; [facility] Work Phone: Comment on above: Room air 06-18-2015 08:32-0500 Weight 68.1 kg Jaspermeredith Hauserjenniechristie [facility] Work Phone: 04-30-2015 08:43-0500 BMI (Body Mass Index) 23.76 kg/m2 Maria Elena Slarb [employer] [facility] Work Phone: 04-30-2015 08:43-0500 Body Temperature 96.8 [degF] Maria Elena Slarb [employer] [facility] Work Phone: 04-30-2015 08:43-0500 Body weight 66.77 kg Maria Elena Suarez LPN [facility] Work Phone: 04-30-2015 08:43-0500 BP Diastolic 68 mm[Hg] Maria Elena Callumrb [employer] [facility] Work Phone: Comment on above: Patient Position: Sitting; Cuff Location : Left Arm; Cuff Size: Standard 04-30-2015 08:43-0500 BP Systolic 108 mm[Hg] Maria Elena Suarez LPN [facility] Work Phone: Comment on above: Patient Position: Sitting; Cuff Location : Left Arm; Cuff Size: Standard 04-30-2015 08:43-0500 BSA (Body Surface Area) 1.76 m2 Maria Elena Suarez LPN [facility] Work Phone: 04-30-2015 08:43-0500 Height 167.64 cm Maria Elena Suarez LPN [facility] Work Phone: 04-30-2015 08:43-0500 Pulse (Heart Rate) 59 /min Maria Elena Suarez LPN [facility] Work Phone: Comment on above: Pattern: Regular 04-30-2015 08:43-0500 Pulse Oximetry 97 % Jasper Chong [facility] Work Phone: Comment on above: Room air 04-30-2015 08:43-0500 Respiratory Rate 16 /min Maria Elena Suarez LPN [facility] Work Phone: Comment on above: Pattern: Unlabored 04-30-2015 08:43-0500 SaO2% (BldA) [Mass fraction] 97 % Maria Elena Callumrb [employer] [facility]; [facility] Work Phone: Comment on above: Room air 04-30-2015 08:43-0500 Weight 66.77 kg Jasper Chong [facility] Internal Medicine Work Phone: 12-24-2014 07:45-0400 BMI (Body Mass Index) 23.76 kg/m2 Genet Martínez RN [facility] Work Phone: 12-24-2014 07:45-0400 Body Temperature 98.2 [degF] Genet Martínez RN [facility] Work Phone: Comment on above: Method: Temporal 12-24-2014 07:45-0400 Body weight 66.77 kg Genet Martínez RN [facility] Work Phone: 12-24-2014 07:45-0400 BP Diastolic 74 mm[Hg] Genet Martínez RN [facility] Work Phone: Comment on above: Patient Position: Sitting; Cuff Location : Left Arm; Cuff Size: Standard 12-24-2014 07:45-0400 BP Systolic 132 mm[Hg] Genet Martínez RN [facility] Work Phone: Comment on above: Patient Position: Sitting; Cuff Location : Left Arm; Cuff Size: Standard 12-24-2014 07:45-0400 BSA (Body Surface Area) 1.76 m2 Genet Martínez RN [facility] Work Phone: 12-24-2014 07:45-0400 Height 167.64 cm Genet Martínez RN [facility] Work Phone: 12-24-2014 07:45-0400 Pulse (Heart Rate) 72 /min Genet Martínez RN [facility] Work Phone: Comment on above: Pattern: Regular 12-24-2014 07:45-0400 Pulse Oximetry 98 % Jasper Chong [facility] Work Phone: Comment on above: Room air 12-24-2014 07:45-0400 Respiratory Rate 16 /min Genet Martínez RN [facility] Work Phone: Comment on above: Pattern: Unlabored 12-24-2014 07:45-0400 SaO2% (BldA) [Mass fraction] 98 % Genet Martínez RN [facility]; [facility] Work Phone: Comment on above: Room air 12-24-2014 07:45-0400 Weight 66.77 kg Jasper Chong [facility] Work Phone: 10-30-2014 08:35-0400 BMI (Body Mass Index) 23.48 kg/m2 Maria Elena Slarb [employer] [facility] Work Phone: 10-30-2014 08:35-0400 Body Temperature 98.4 [degF] Maria Elena Slarb [employer] [facility] Work Phone: 10-30-2014 08:35-0400 Body weight 66 kg Maria Elena Slarb [employer] [facility] Work Phone: 10-30-2014 08:35-0400 BP Diastolic 64 mm[Hg] Maria Elena Slarb [employer] [facility] Work Phone: Comment on above: Patient Position: Sitting; Cuff Location : Left Arm; Cuff Size: Standard 10-30-2014 08:35-0400 BP Systolic 106 mm[Hg] Maria Elena Slarb [employer] [facility] Work Phone: Comment on above: Patient Position: Sitting; Cuff Location : Left Arm; Cuff Size: Standard 10-30-2014 08:35-0400 BSA (Body Surface Area) 1.75 m2 Maria Elena Slarb [employer] [facility] Work Phone: 10-30-2014 08:35-0400 Height 167.64 cm Maria Elena Slarb [employer]PA[employer] [facility] Work Phone: 10-30-2014 08:35-0400 Pulse (Heart Rate) 67 /min Maria Elena Callumrb [employer] [facility] Work Phone: Comment on above: Pattern: Regular 10-30-2014 08:35-0400 Pulse Oximetry 97 % Jasper Chong [facility] Work Phone: Comment on above: Room air 10-30-2014 08:35-0400 Respiratory Rate 16 /min Maria Elena Slarb [employer] [facility] Work Phone: Comment on above: Pattern: Unlabored 10-30-2014 08:35-0400 SaO2% (BldA) [Mass fraction] 97 % Maria Elena Slarb [employer] [facility]; [facility] Work Phone: Comment on above: Room air 10-30-2014 08:35-0400 Weight 66 kg Jasper Chong [facility] Internal Medicine Work Phone: 07-31-2014 09:03-0500 BMI (Body Mass Index) 23.24 kg/m2 Nadege Temple LPN [facility] Internal Medicine Work Phone: 07-31-2014 09:03-0500 Body Temperature 97.1 [degF] Nadege Temple VOLODYMYR [facility] Internal Medicine Work Phone: Comment on above: Method: Oral 07-31-2014 09:03-0500 Body weight 65.32 kg Naedge Temple LPN [facility] Internal Medicine Work Phone: 07-31-2014 09:03-0500 BP Diastolic 70 mm[Hg] Nadege Temple VOLODYMYR [facility] Medicine Work Phone: Comment on above: Patient Position: Sitting; Cuff Location : Left Arm; Cuff Size: Standard 07-31-2014 09:03-0500 BP Systolic 102 mm[Hg] Nadege Temple VOLODYMYR [facility] Medicine Work Phone: Comment on above: Patient Position: Sitting; Cuff Location : Left Arm; Cuff Size: Standard 07-31-2014 09:03-0500 BSA (Body Surface Area) 1.74 m2 Nadege Temple LPN [facility] Internal Medicine Work Phone: 07-31-2014 09:03-0500 Height 167.64 cm Nadege Temple VOLODYMYR [facility] Medicine Work Phone: 07-31-2014 09:03-0500 Pulse (Heart Rate) 66 /min Nadege Temple [employer] [facility] Work Phone: Comment on above: Pattern: Regular 07-31-2014 09:03-0500 Pulse Oximetry 98 % Jasper Chong [facility] Medicine Work Phone: Comment on above: Room air 07-31-2014 09:03-0500 Respiratory Rate 16 /min Nadege Temple VOLODYMYR [facility] Medicine Work Phone: 07-31-2014 09:03-0500 SaO2% (BldA) [Mass fraction] 98 % Nadege Temple LPN [facility]; [facility] Work Phone: Comment on above: Room air 07-31-2014 09:03-0500 Weight 65.32 kg Jasper Chong [facility] Internal Medicine Work Phone: 07-23-2014 11:15-0500 BMI (Body Mass Index) 23.24 kg/m2 Nadege Temple VOLODYMYR [facility] Work Phone: 07-23-2014 11:15-0500 Body Temperature 98.2 [degF] Nadege Temple VOLODYMYR [facility] Work Phone: Comment on above: Method: Oral 07-23-2014 11:15-0500 Body weight 65.32 kg Nadege Temple LPN [facility] Work Phone: 07-23-2014 11:15-0500 BP Diastolic 70 mm[Hg] Nadege Temple VOLODYMYR [facility] Work Phone: Comment on above: Patient Position: Sitting; Cuff Location : Left Arm; Cuff Size: Standard 07-23-2014 11:15-0500 BP Systolic 110 mm[Hg] Nadege Temple VOLODYMYR [facility] Work Phone: Comment on above: Patient Position: Sitting; Cuff Location : Left Arm; Cuff Size: Standard 07-23-2014 11:15-0500 BSA (Body Surface Area) 1.74 m2 Nadege Temple VOLODYMYR [facility] Work Phone: 07-23-2014 11:15-0500 Height 167.64 cm Nadege Temple VOLODYMYR [facility] Work Phone: 07-23-2014 11:15-0500 Pulse (Heart Rate) 62 /min Nadege Temple VOLODYMYR [facility] Work Phone: Comment on above: Pattern: Regular 07-23-2014 11:15-0500 Pulse Oximetry 98 % Jasper Chong [facility] Medicine Work Phone: Comment on above: Room air 07-23-2014 11:15-0500 Respiratory Rate 17 /min Nadege Temple VOLODYMYR [facility] Work Phone: 07-23-2014 11:15-0500 SaO2% (BldA) [Mass fraction] 98 % Nadege Temple [employer] [facility]; [facility] Work Phone: Comment on above: Room air 07-23-2014 11:15-0500 Weight 65.32 kg Jasper Chong [facility] Work Phone: 07-09-2014 11:44-0500 BMI (Body Mass Index) 23.24 kg/m2 EULALIA Fuentes [employer] [facility] Work Phone: 07-09-2014 11:44-0500 Body Temperature 97.6 [degF] EULALIA Fuentes [employer] [facility] Work Phone: Comment on above: Method: Temporal 07-09-2014 11:44-0500 Body weight 65.32 kg EULALIA Fuentes VOLODYMYR [facility] Medicine Work Phone: 07-09-2014 11:44-0500 BP Diastolic 70 mm[Hg] EULALIA Fuentes [employer] [facility] Work Phone: Comment on above: Patient Position: Sitting; Cuff Location : Left Arm; Cuff Size: Standard 07-09-2014 11:44-0500 BP Systolic 114 mm[Hg] EULALIA Fuentes [employer] [facility] Work Phone: Comment on above: Patient Position: Sitting; Cuff Location : Left Arm; Cuff Size: Standard 07-09-2014 11:44-0500 BSA (Body Surface Area) 1.74 m2 EULALIA Fuentes VOLODYMYR [facility] Work Phone: 07-09-2014 11:44-0500 Height 167.64 cm EULALIA Alfredo [employer] REPA[employer] [facility] Medicine Work Phone: 07-09-2014 11:44-0500 Pulse (Heart Rate) 74 /min EULALIA Fuentes [employer] REPA[employer] [facility] Medicine Work Phone: Comment on above: Pattern: Regular 07-09-2014 11:44-0500 Pulse Oximetry 98 % Jasper Hortonchristie [facility] Medicine Work Phone: Comment on above: Room air 07-09-2014 11:44-0500 Respiratory Rate 18 /min EULALIA Fuentes LPN [facility] Work Phone: Comment on above: Pattern: Unlabored 07-09-2014 11:44-0500 SaO2% (BldA) [Mass fraction] 98 % EULALIA Fuentes LPN [facility]; [facility] Work Phone: Comment on above: Room air 07-09-2014 11:44-0500 Weight 65.32 kg Jasper Chogn [facility] Work Phone: 03-19-2014 09:14-0400 BMI (Body Mass Index) 23.73 kg/m2 Angelina Castellanos [facility] Internal Medicine Work Phone: 03-19-2014 09:14-0400 Body Temperature 100.9 [degF] Angelina Castellanos [facility] Medicine Work Phone: Comment on above: Method: Oral 03-19-2014 09:14-0400 Body weight 66.68 kg Angelina Castellanos [facility] Work Phone: 03-19-2014 09:14-0400 BP Diastolic 64 mm[Hg] Angelina Castellanos [facility] Work Phone: Comment on above: Patient Position: Sitting; Cuff Location : Left Arm; Cuff Size: Standard 03-19-2014 09:14-0400 BP Systolic 102 mm[Hg] Angelina Castellanos [facility] Work Phone: Comment on above: Patient Position: Sitting; Cuff Location : Left Arm; Cuff Size: Standard 03-19-2014 09:14-0400 BSA (Body Surface Area) 1.75 m2 Angelina Castellanos [facility] Work Phone: 03-19-2014 09:14-0400 Height 167.64 cm Angelina Castellanos [facility] Work Phone: 03-19-2014 09:14-0400 Pulse (Heart Rate) 76 /min Angelina Castellanos [facility] Work Phone: Comment on above: Pattern: Regular 03-19-2014 09:14-0400 Pulse Oximetry 96 % Jasper Chong [facility] Medicine Work Phone: Comment on above: Room air 03-19-2014 09:14-0400 Respiratory Rate 18 /min Angelina Castellanos [facility] Work Phone: Comment on above: Pattern: Unlabored 03-19-2014 09:14-0400 SaO2% (BldA) [Mass fraction] 96 % Angelina Castellanos [facility]; [facility] Work Phone: Comment on above: Room air 03-19-2014 09:14-0400 Weight 66.68 kg Jasper Chong [facility] Work Phone: 01-15-2014 09:36-0400 BMI (Body Mass Index) 23.73 kg/m2 Jazmin Del Cid [facility] Work Phone: 01-15-2014 09:36-0400 Body weight 66.68 kg Jazmin Del Cid [facility] Medicine Work Phone: 01-15-2014 09:36-0400 BP Diastolic 60 mm[Hg] [facility] Work Phone: Comment on above: Patient Position: Sitting; Cuff Location : Left Arm; Cuff Size: Standard 01-15-2014 09:36-0400 BP Systolic 115 mm[Hg] Jazmin Del Cid [facility] Work Phone: Comment on above: Patient Position: Sitting; Cuff Location : Left Arm; Cuff Size: Standard 01-15-2014 09:36-0400 BSA (Body Surface Area) 1.75 m2 Jazmin Del Cid [facility] Work Phone: 01-15-2014 09:36-0400 Height 167.64 cm [facility]: 01-15-2014 09:36-0400 Pulse (Heart Rate) 66 /min Jazmin Del Cid [facility] Internal Medicine Work Phone: Comment on above: Pattern: Regular 01-15-2014 09:36-0400 Pulse Oximetry 97 % [facility] Work Phone: Comment on above: Room air 01-15-2014 09:36-0400 Respiratory Rate 16 /min Jazmin [place] [facility] Medicine Work Phone: Comment on above: Pattern: Unlabored 01-15-2014 09:36-0400 SaO2% (BldA) [Mass fraction] 97 % Jazmin [place] [facility]; [facility] Work Phone: Comment on above: Room air 01-15-2014 09:36-0400 Weight 66.68 kg [facility] Work Phone: 07-17-2013 13:01-0500 Body Temperature 97.6 [degF] [facility] Work [facility]: Comment on above: Method: Oral refuses weight 07-17-2013 13:01-0500 BP Diastolic 78 mm[Hg] EULALIA Fuentes [facility] Medicine Work Phone: Comment on above: Patient Position: Sitting; Cuff Location : Left Arm; Cuff Size: Standard refuses weight 07-17-2013 13:01-0500 BP Systolic 122 mm[Hg] [facility] Work Phone: Comment on above: Patient Position: Sitting; Cuff Location : Left Arm; Cuff Size: Standard refuses weight 07-17-2013 13:01-0500 Height 167.64 cm EULALIA Fuentes LPN [facility] Medicine Work Phone: Comment on above: refuses weight 07-17-2013 13:01-0500 Pulse (Heart Rate) 74 /min EULALIA Fuentes [employer] [facility] Medicine Work Phone: Comment on above: Pattern: Regular refuses weight 07-17-2013 13:01-0500 Respiratory Rate 18 /min EULALIA Fuentes LPN [facility] Medicine Work Phone: Comment on above: Pattern: Unlabored refuses weight 03-30-2013 09:12-0400 BMI (Body Mass Index) 24.37 kg/m2 Jazmin Maria Eugenia [facility] Internal Medicine Work Phone: 03-30-2013 09:12-0400 Body Temperature 98.5 [degF] Jazmin Del Cid [facility] Medicine Work Phone: Comment on above: Method: Oral 03-30-2013 09:12-0400 Body weight 68.49 kg Jazmin Del Cid [facility] Medicine Work Phone: 03-30-2013 09:12-0400 BP Diastolic 80 mm[Hg] Jazmin Del Cid [facility] Medicine Work Phone: Comment on above: Patient Position: Sitting; Cuff Location : Left Arm; Cuff Size: Standard 03-30-2013 09:12-0400 BP Systolic 126 mm[Hg] Jazmin Del Cid [facility] Medicine Work Phone: Comment on above: Patient Position: Sitting; Cuff Location : Left Arm; Cuff Size: Standard 03-30-2013 09:12-0400 BSA (Body Surface Area) 1.78 m2 Jazmin Del Cid [facility] Medicine Work Phone: 03-30-2013 09:12-0400 Height 167.64 cm Jazmin Del Cid [facility] Work Phone: 03-30-2013 09:12-0400 Pulse (Heart Rate) 68 /min Jazmin Del Cid [facility] [facility] Internal Medicine Work Phone: Comment on above: Pattern: Regular 03-30-2013 09:12-0400 Pulse Oximetry 98 % [facility] Work [facility]: Comment on above: Room air 03-30-2013 09:12-0400 Respiratory Rate 16 /min Jazmin Del Cid [facility] Internal Medicine Work Phone: Comment on above: Pattern: Unlabored 03-30-2013 09:12-0400 SaO2% (BldA) [Mass fraction] 98 % Jazmin Del Cid [facility] Internal Medicine; [facility] Work Phone: Comment on above: Room air 03-30-2013 09:12-0400 Weight 68.49 kg Jasper Chong [facility] Internal Medicine Work Phone: 01-02-2013 09:12-0400 BMI (Body Mass Index) 23.56 kg/m2 EULALIA Fuentes LPN [facility] Internal Medicine Work Phone: 01-02-2013 09:12-0400 Body Temperature 97.8 [degF] EULALIA Fuentes LPN [facility] Internal Medicine Work Phone: Comment on above: Method: Oral 01-02-2013 09:12-0400 Body weight 66.23 kg EULALIA Fuentes LPN [facility] Internal Medicine Work Phone: 01-02-2013 09:12-0400 BP Diastolic 74 mm[Hg] EULALIA Fuentes LPN [facility] Internal Medicine Work Phone: Comment on above: Patient Position: Sitting; Cuff Location : Left Arm; Cuff Size: Standard 01-02-2013 09:12-0400 BP Systolic 114 mm[Hg] EULALIA Fuentes LPN [facility] Internal Medicine Work Phone: Comment on above: Patient Position: Sitting; Cuff Location : Left Arm; Cuff Size: Standard 01-02-2013 09:12-0400 BSA (Body Surface Area) 1.75 m2 EULALIA Fuentes LPN [facility] Internal Medicine Work Phone: 01-02-2013 09:12-0400 Height 167.64 cm EULALIA Fuentes LPN [facility] Internal Medicine Work Phone: 01-02-2013 09:12-0400 Pulse (Heart Rate) 64 /min EULALIA Fuentes LPN [facility] Internal Medicine Work Phone: Comment on above: Pattern: Regular 01-02-2013 09:12-0400 Respiratory Rate 20 /min EULALIA Fuentes LPN [facility] Internal Medicine Work Phone: Comment on above: Pattern: Unlabored 01-02-2013 09:12-0400 Weight 66.23 kg Jasper Chong [facility] Internal Medicine Work Phone: 06-02-2012 08:57-0500 BMI (Body Mass Index) 23.24 kg/m2 EULALIA Fuentes LPN [facility] Internal Medicine Work Phone: 06-02-2012 08:57-0500 Body weight 65.32 kg EULALIA Fuentes LPN [facility] Internal Medicine Work Phone: 06-02-2012 08:57-0500 BP Diastolic 68 mm[Hg] EULALIA Fuentes LPN [facility] Internal Medicine Work Phone: Comment on above: Patient Position: Sitting; Cuff Location : Left Arm; Cuff Size: Standard 06-02-2012 08:57-0500 BP Systolic 108 mm[Hg] EULALIA Fuentes LPN [facility] Internal Medicine Work Phone: Comment on above: Patient Position: Sitting; Cuff Location : Left Arm; Cuff Size: Standard 06-02-2012 08:57-0500 BSA (Body Surface Area) 1.74 m2 EULALIA Fuentes LPN [facility] Internal Medicine Work Phone: 06-02-2012 08:57-0500 Height 167.64 cm EULALIA Fuentes LPN [facility] Internal Medicine Work Phone: 06-02-2012 08:57-0500 Pulse (Heart Rate) 70 /min EULALIA Fuentes LPN [facility] Internal Medicine Work Phone: Comment on above: Pattern: Regular 06-02-2012 08:57-0500 Respiratory Rate 18 /min EULALIA Fuentes LPN [facility] Internal Medicine Work Phone: Comment on above: Pattern: Unlabored 06-02-2012 08:57-0500 Weight 65.32 kg Jasper Chong [facility] Internal Medicine Work Phone: 01-01-2012 08:32-0400 BMI (Body Mass Index) 23.24 kg/m2 EULALIA Fuentes LPN [facility] Internal Medicine Work Phone: 01-01-2012 08:32-0400 Body Temperature 98 [degF] EULALIA Fuentes LPN [facility] Internal Medicine Work Phone: Comment on above: Method: Oral 01-01-2012 08:32-0400 Body weight 65.32 kg EULALIA Fuentes LPN [facility] Internal Medicine Work Phone: 01-01-2012 08:32-0400 BP Diastolic 70 mm[Hg] EULALIA Fuentes LPN [facility] Internal Medicine Work Phone: Comment on above: Patient Position: Sitting; Cuff Location : Left Arm; Cuff Size: Standard 01-01-2012 08:32-0400 BP Systolic 104 mm[Hg] EULALIA Fuentes LPN [facility] Internal Medicine Work Phone: Comment on above: Patient Position: Sitting; Cuff Location : Left Arm; Cuff Size: Standard 01-01-2012 08:32-0400 BSA (Body Surface Area) 1.74 m2 EULALIA Fuentes LPN [facility] Internal Medicine Work Phone: 01-01-2012 08:32-0400 Height 167.64 cm EULALIA Fuentes LPN [facility] Internal Medicine Work Phone: 01-01-2012 08:32-0400 Pulse (Heart Rate) 70 /min EULALIA Fuentes LPN [facility] Internal Medicine Work Phone: Comment on above: Pattern: Regular 01-01-2012 08:32-0400 Respiratory Rate 18 /min EULALIA Fuentes LPN [facility] Internal Medicine Work Phone: Comment on above: Pattern: Unlabored 01-01-2012 08:32-0400 Weight 65.32 kg Jasper Chong [facility] Internal Medicine Work Phone: 05-12-2011 13:49-0500 BMI (Body Mass Index) 23.73 kg/m2 EULALIA Fuentes LPN [facility] Internal Medicine Work Phone: 05-12-2011 13:49-0500 Body Temperature 97.6 [degF] EULALIA Fuentes [facility] Internal Medicine Work Phone: Comment on above: Method: Oral 05-12-2011 13:49-0500 Body weight 66.68 kg EULALIA Fuentes LPN [facility] Internal Medicine Work Phone: 05-12-2011 13:49-0500 BP Diastolic 70 mm[Hg] EULALIA Fuentes [employer] [facility] Internal Medicine Work Phone: Comment on above: Patient Position: Sitting; Cuff Location : Left Arm; Cuff Size: Standard 05-12-2011 13:49-0500 BP Systolic 104 mm[Hg] EULALIA Fuentes LPN [facility] Internal Medicine Work Phone: Comment on above: Patient Position: Sitting; Cuff Location : Left Arm; Cuff Size: Standard 05-12-2011 13:49-0500 BSA (Body Surface Area) 1.75 m2 EULALIA Fuentes LPN [facility] Internal Medicine Work Phone: 05-12-2011 13:49-0500 Height 167.64 cm EULALIA Fuentes LPN [facility] Internal Medicine Work Phone: 05-12-2011 13:49-0500 Pulse (Heart Rate) 68 /min EULALIA Fuentes LPN [facility] Internal Medicine Work Phone: Comment on above: Pattern: Regular 05-12-2011 13:49-0500 Respiratory Rate 18 /min EULALIA Fuentes LPN [facility] Internal Medicine Work Phone: Comment on above: Pattern: Unlabored 05-12-2011 13:49-0500 Weight 66.68 kg Jasper Chong [facility] Internal Medicine Work Phone: 10-30-2010 09:31-0400 BMI (Body Mass Index) 23.73 kg/m2 EULALIA Fuentes LPN [facility] Internal Medicine Work Phone: 10-30-2010 09:31-0400 Body Temperature 97.2 [degF] EULALIA Fuentes LPN [facility] Internal Medicine Work Phone: Comment on above: Method: Oral 10-30-2010 09:31-0400 Body weight 66.68 kg EULALIA Fuentes LPN [facility] Internal Medicine Work Phone: 10-30-2010 09:31-0400 BP Diastolic 74 mm[Hg] EULALIA Fuentes [employer] [facility] Internal Medicine Work Phone: Comment on above: Patient Position: Sitting; Cuff Location : Left Arm; Cuff Size: Standard 10-30-2010 09:31-0400 BP Systolic 118 mm[Hg] EULALIA Fuentes LPN [facility] Internal Medicine Work Phone: Comment on above: Patient Position: Sitting; Cuff Location : Left Arm; Cuff Size: Standard 10-30-2010 09:31-0400 BSA (Body Surface Area) 1.75 m2 EULALIA Fuentes LPN [facility] Internal Medicine Work Phone: 10-30-2010 09:31-0400 Height 167.64 cm EULALIA Fuentes LPN [facility] Internal Medicine Work Phone: 10-30-2010 09:31-0400 Pulse (Heart Rate) 70 /min EULALIA Alfredo HELM [facility] Internal Medicine Work Phone: Comment on above: Pattern: Regular 10-30-2010 09:31-0400 Respiratory Rate 18 /min EULALIA Alfredo HELM [facility] Internal Medicine Work Phone: Comment on above: Pattern: Unlabored 10-30-2010 09:31-0400 Weight 66.68 kg Jasper Chong [facility] Internal Medicine Work Phone: 04-30-2010 16:31-0500 BMI (Body Mass Index) 23.24 kg/m2 Genet Martínez RN [facility] Internal Medicine Work Phone: 04-30-2010 16:31-0500 Body Temperature 98.2 [degF] Genet Martínez RN [facility] Internal Medicine Work Phone: Comment on above: Method: Oral 04-30-2010 16:31-0500 Body weight 65.32 kg Genet Martínez RN [facility] Internal Medicine Work Phone: 04-30-2010 16:31-0500 BSA (Body Surface Area) 1.74 m2 Genet Martínez RN [facility] Internal Medicine Work Phone: 04-30-2010 16:31-0500 Height 167.64 cm Gente Martínez RN [facility] Internal Medicine Work Phone: 04-30-2010 16:31-0500 Weight 65.32 kg Jasper Chong [facility] Internal Medicine Work Phone: 03-31-2010 10:01-0400 BMI (Body Mass Index) 23.24 kg/m2 EULALIA Fuentes LPN [facility] Internal Medicine Work Phone: 03-31-2010 10:01-0400 Body Temperature 97.9 [degF] EULALIA Fuentes LPN [facility] Internal Medicine Work Phone: Comment on above: Method: Oral 03-31-2010 10:01-0400 Body weight 65.32 kg EULALIA Fuentes LPN [facility] Internal Medicine Work Phone: 03-31-2010 10:01-0400 BP Diastolic 74 mm[Hg] EULALIA Fuentes LPN [facility] Internal Medicine Work Phone: Comment on above: Patient Position: Sitting; Cuff Location : Left Arm; Cuff Size: Standard 03-31-2010 10:01-0400 BP Systolic 110 mm[Hg] EULALIA Fuentes LPN [facility] Internal Medicine Work Phone: Comment on above: Patient Position: Sitting; Cuff Location : Left Arm; Cuff Size: Standard 03-31-2010 10:01-0400 BSA (Body Surface Area) 1.74 m2 EULALIA Fuentes [facility] Internal Medicine Work Phone: 03-31-2010 10:01-0400 Height 167.64 cm EULALIA Fuentes [facility] Internal Medicine Work Phone: 03-31-2010 10:01-0400 Pulse (Heart Rate) 70 /min EULALIA Fuentes [facility] Internal Medicine Work Phone: Comment on above: Pattern: Regular 03-31-2010 10:01-0400 Respiratory Rate 18 /min EULALIA Fuentes [facility] Internal Medicine Work Phone: Comment on above: Pattern: Unlabored 03-31-2010 10:01-0400 Weight 65.32 kg Jasper Chong [facility] Internal Medicine Work Phone: 01-22-2010 08:59-0400 Body Temperature 97.7 [degF] Nadege Temple [facility] Internal Medicine Work Phone: Comment on above: Method: Oral 01-22-2010 08:59-0400 Body weight 65.01 kg Nadege Temple [facility] Internal Medicine Work Phone: 01-22-2010 08:59-0400 BP Diastolic 72 mm[Hg] Nadege Temple [facility] Internal Medicine Work Phone: Comment on above: Patient Position: Sitting; Cuff Location : Left Arm; Cuff Size: Standard 01-22-2010 08:59-0400 BP Systolic 130 mm[Hg] Nadege Temple [facility] Internal Medicine Work Phone: Comment on above: Patient Position: Sitting; Cuff Location : Left Arm; Cuff Size: Standard 01-22-2010 08:59-0400 Pulse (Heart Rate) 68 /min Nadege Temple [facility] Internal Medicine Work Phone: Comment on above: Pattern: Regular 01-22-2010 08:59-0400 Respiratory Rate 15 /min Nadege Temple [facility] Internal Medicine Work Phone: Comment on above: Pattern: Unlabored 01-22-2010 08:59-0400 [facility] 65.01 [facility] Work Phone: 07-24-2009 10:08-0500 Body weight 66.68 kg EULALIA Fuentes [facility] Internal Medicine Work Phone: 07-24-2009 10:08-0500 BP Diastolic 64 mm[Hg] EULALIA Fuentes [facility] Internal Medicine Work Phone: Comment on above: Patient Position: Sitting; Cuff Location : Left Arm; Cuff Size: Standard 07-24-2009 10:08-0500 BP Systolic 102 mm[Hg] EULALIA Fuentes [facility] Internal Medicine Work Phone: Comment on above: Patient Position: Sitting; Cuff Location : Left Arm; Cuff Size: Standard 07-24-2009 10:08-0500 Pulse (Heart Rate) 70 /min EULALIA Fuentes [facility] Internal Medicine Work Phone: Comment on above: Pattern: Regular 07-24-2009 10:08-0500 Respiratory Rate 18 /min EULALIA Fuentes [facility] Internal Medicine Work Phone: Comment on above: Pattern: Unlabored 07-24-2009 10:08-0500 Weight 66.68 kg [facility] Work Phone: 01-29-2009 08:13-0400 Body weight 67.13 kg EULALIA Fuentes [facility] Internal Medicine Work Phone: 01-29-2009 08:13-0400 BP Diastolic 60 mm[Hg] EULALIA Fuentes [facility] Internal Medicine Work Phone: Comment on above: Patient Position: Sitting; Cuff Location : Left Arm; Cuff Size: Standard 01-29-2009 08:13-0400 BP Systolic 100 mm[Hg] EULALIA Fuentes [facility] Work Phone: Comment on above: Patient Position: Sitting; Cuff Location : Left Arm; Cuff Size: Standard 01-29-2009 08:13-0400 Head Circumference 0 cm [facility] Internal Medicine Work Phone: 01-29-2009 08:13-0400 Head Occipital-frontal circumference 0 cm EULALIA Fuentes [facility] Internal Medicine; [facility] Work Phone: 01-29-2009 08:13-0400 Height 0 cm EULALIA Fuentes [facility] Internal Medicine Work Phone: 01-29-2009 08:13-0400 Pulse (Heart Rate) 64 /min EULALIA Fuentes [facility] Internal Medicine Work Phone: Comment on above: Pattern: Regular 01-29-2009 08:13-0400 Respiratory Rate 16 /min EULALIA Fuentes [facility] Internal Medicine Work Phone: Comment on above: Pattern: Unlabored 01-29-2009 08:13-0400 Weight 67.13 kg [facility] Internal Medicine Work Phone: 07-12-2008 07:47-0500 Body weight 68.04 kg EULALIA Fuentes [facility] Internal Medicine Work Phone: 07-12-2008 07:47-0500 BP Diastolic 74 mm[Hg] EULALIA Fuentes [facility] Internal Medicine Work Phone: Comment on above: Patient Position: Sitting; Cuff Location : Left Arm; Cuff Size: Standard 07-12-2008 07:47-0500 BP Systolic 106 mm[Hg] EULALIA Fuentes [facility] Internal Medicine Work Phone: Comment on above: Patient Position: Sitting; Cuff Location : Left Arm; Cuff Size: Standard 07-12-2008 07:47-0500 Head Circumference 0 cm [facility] Internal Medicine Work Phone: 07-12-2008 07:47-0500 Head Occipital-frontal circumference 0 cm EULALIA Alfredo [facility] Internal Medicine; [facility] Work Phone: 07-12-2008 07:47-0500 Height 0 cm EULALIA Fuentes LPN [facility] Work Phone: 07-12-2008 07:47-0500 Pulse (Heart Rate) 60 /min EULALIA Fuentes LPN [facility] Work Phone: Comment on above: Pattern: Regular 07-12-2008 07:47-0500 Respiratory Rate 16 /min EULALIA Fuentes LPN [facility] Work Phone: Comment on above: Pattern: Unlabored 07-12-2008 07:47-0500 Weight 68.04 kg Jasper Chong [facility] Internal Medicine Work Phone: 11-18-2007 11:34-0400 Body Temperature 97.6 [degF] EULALIA Fuentes LPN [facility] Work Phone: Comment on above: Method: Oral 11-18-2007 11:34-0400 Body weight 65.77 kg EULALIA Fuentes LPN [facility] Work Phone: 11-18-2007 11:34-0400 BP Diastolic 70 mm[Hg] EULALIA Fuentes LPN [facility] Work Phone: Comment on above: Patient Position: Sitting; Cuff Location : Left Arm; Cuff Size: Standard 11-18-2007 11:34-0400 BP Systolic 108 mm[Hg] EULALIA Fuentes LPN [facility] Work Phone: Comment on above: Patient Position: Sitting; Cuff Location : Left Arm; Cuff Size: Standard 11-18-2007 11:34-0400 Head Circumference 0 cm Jasper Chong [facility] Internal Medicine Work Phone: 11-18-2007 11:34-0400 Head Occipital-frontal circumference 0 cm EULALIA Fuentes LPN [facility]; [facility] Work Phone: 11-18-2007 11:34-0400 Height 0 cm EULALIA Fuentes LPN [facility] Work Phone: 11-18-2007 11:34-0400 Pulse (Heart Rate) 68 /min EULALIA Fuentes LPN [facility] Work Phone: Comment on above: Pattern: Regular 11-18-2007 11:34-0400 Respiratory Rate 18 /min EULALIA Fuentes LPN [facility] Internal Medicine Work Phone: Comment on above: Pattern: Unlabored 11-18-2007 11:34-0400 [facility] 65.77 [facility] Work Phone: 04-25-2007 14:44-0500 Body Temperature 98.4 [degF] EULALIA Fuentes [facility] Work Phone: Comment on above: Method: Oral 04-25-2007 14:44-0500 Body weight 0 kg EULALIA Fuentes [employer] [facility] Work Phone: 04-25-2007 14:44-0500 BP Diastolic 74 mm[Hg] EULALIA Fuentes [facility] Work Phone: Comment on above: Patient Position: Sitting; Cuff Location : Left Arm; Cuff Size: Standard 04-25-2007 14:44-0500 BP Systolic 104 mm[Hg] EULALIA Fuentes [facility] Work Phone: Comment on above: Patient Position: Sitting; Cuff Location : Left Arm; Cuff Size: Standard 04-25-2007 14:44-0500 Head Circumference 0 cm [facility] Internal Medicine Work Phone: 04-25-2007 14:44-0500 Head Occipital-frontal circumference 0 cm EULALIA Fuentes [facility] Internal Medicine; [facility] Work Phone: 04-25-2007 14:44-0500 Height 0 cm EULALIA Fuentes [facility] Work Phone: 04-25-2007 14:44-0500 Pulse (Heart Rate) 74 /min EULALIA Fuentes [facility] Internal Medicine Work Phone: Comment on above: Pattern: Regular 04-25-2007 14:44-0500 Respiratory Rate 18 /min EULALIA Fuentes LPN [facility] Internal Medicine Work Phone: Comment on above: Pattern: Unlabored 04-25-2007 14:44-0500 Weight 0 [facility] Work Phone: 12-17-2006 08:33-0400 Body Temperature 97.8 [degF] Lilia Wiggins [facility] Internal Medicine Work Phone: Comment on above: Method: Oral 12-17-2006 08:33-0400 Body weight 69.4 kg Lilia Wiggins [facility] Internal Medicine Work Phone: 12-17-2006 08:33-0400 BP Diastolic 62 mm[Hg] Lilia Wiggins [facility] Internal Medicine Work Phone: Comment on above: Patient Position: Sitting; Cuff Location : Left Arm; Cuff Size: Standard 12-17-2006 08:33-0400 BP Systolic 108 mm[Hg] Lilia Wiggins [facility] Internal Medicine Work Phone: Comment on above: Patient Position: Sitting; Cuff Location : Left Arm; Cuff Size: Standard 12-17-2006 08:33-0400 Head Circumference 0 cm Jasper Chong [facility] Internal Medicine Work Phone: 12-17-2006 08:33-0400 Head Occipital-frontal circumference 0 cm Lilia Wiggins [facility] Internal Medicine; [facility] Internal Medicine Work Phone: 12-17-2006 08:33-0400 Height 0 cm Lilia Wiggins [facility] Internal Medicine Work Phone: 12-17-2006 08:33-0400 Pulse (Heart Rate) 64 /min Lilia Wiggins [facility] Internal Medicine Work Phone: Comment on above: Pattern: Regular 12-17-2006 08:33-0400 Respiratory Rate 16 /min Lilia Wiggins [facility] Internal Medicine Work Phone: Comment on above: Pattern: Unlabored 12-17-2006 08:33-0400 Weight 69.4 kg Jasper Chong [facility] Internal Medicine Work Phone: 05-31-2006 10:42-0500 BMI (Body Mass Index) 23.94 kg/m2 Jasper Chong [facility] Internal Medicine Work Phone: 05-31-2006 10:42-0500 Body weight 67.27 kg Jasper Chong [facility] Internal Medicine Work Phone: 05-31-2006 10:42-0500 BP Diastolic 58 mm[Hg] Jasper Chong [facility] Work Phone: Comment on above: Patient Position: Sitting; Cuff Location : Right Arm; Cuff Size: Standard 05-31-2006 10:42-0500 BP Systolic 100 mm[Hg] Jasper Chong [facility] Work Phone: Comment on above: Patient Position: Sitting; Cuff Location : Right Arm; Cuff Size: Standard 05-31-2006 10:42-0500 BSA (Body Surface Area) 1.76 m2 Jasper Hauserluh [facility] Work Phone: 05-31-2006 10:42-0500 Head Circumference 0 cm Jasper Murtazaluh [facility] Work Phone: 05-31-2006 10:42-0500 Head Occipital-frontal circumference 0 cm Jasper Chong MD Work Phone: [facility]; [facility] Work Phone: 05-31-2006 10:42-0500 Height 167.64 cm Jasper Hortonchristie [facility] Work Phone: 05-31-2006 10:42-0500 Pulse (Heart Rate) 60 /min Jasper Hortonchristie [facility] Work Phone: Comment on above: Pattern: Regular 05-31-2006 10:42-0500 Respiratory Rate 16 /min Jaspermeredith Hauserluh [facility] Work Phone: Comment on above: Pattern: Unlabored 05-31-2006 10:42-0500 Weight 67.27 kg Jasper Hauserluh [facility] Work Phone: Encounters Encounter Date Encounter Type Care Provider Facility Start: 05-30-[address] JASPER CHONG MD Faci lity:[facility] Start: 05-08-2024 End: 05-08-[address] ANTONELLA PATEL MD Facility:[facility] Start: 05-08-2024 End: 05-08-[address] ANTONELLA PATEL MD [facility] Start: 05-08-2024 End: 05-08-[address] ANTONELLA PATEL MD [facility] Start: 05-08-2024 End: 05-08-[address] JASPER CHONG MD Facility:[facility] Start: 03-27-2024 End: 03-27-2024 ambulatory Jasper Chong Facility:[facility] Start: 03-15-2023 End: 03-15-2023 Office outpatient visit 25 minutes Jasper Chong MD Work Phone: [facility] Start: 03-15-2023 End: 03-15-2023 Patient encounter status Jasper Chong MD Work Phone: [facility]; [facility] Work Phone: Start: 02-12-2023 End: 02-12-2023 ambulatory [facility] Work Phone: Start: 02-12-2023 End: 02-12-2023 Patient encounter procedure [facility] Start: 01-14-2023 End: 01-14-2023 Jasper Chong MD Work Phone: [facility] Start: 01-12-2023 End: 01-12-2023 Jasper Chong MD Work Phone: [facility] Start: 01-07-2023 End: 01-07-2023 Jasper Chong MD Work Phone: [facility] Start: 01-07-2023 End: 01-07-[address] Jasper Chong Work Phone: [facility] Work Phone: Start: 01-05-2023 End: 01-05-[address] Jasper Chong Work Phone: [facility] Work Phone: Start: 01-05-2023 End: 01-05-[address] Jasper Chong Work Phone: [facility] Work Phone: Start: 01-04-2023 End: 01-04-2023 Jasper Chong MD Work Phone: [facility] Start: 12-17-2022 End: 12-17-2022 Patient encounter status Jasper Chong MD Work Phone: [facility]; [facility] Work Phone: Start: 12-17-2022 End: 12-17-2022 Jasper Chong MD Work Phone: [facility] Start: 12-07-2022 End: 12-07-2022 Office outpatient visit 15 minutes Jasper Cohng MD Work Phone: [facility] Start: 11-04-2022 ambulatory Jasper Chong MD [facility] Start: 10-07-2022 End: 10-07-2022 Non-patient / Non-visit Dr. Jasper Chong Work Phone: [facility] Start: 10-07-2022 End: 10-07-[address] Jasper Chong Work Phone: [facility] Work Phone: Start: 10-07-2022 End: 10-07-[address] Jasper Chong Work Phone: [facility] Start: 08-19-2022 Jasper Coronel Work Phone: [facility] Start: 08-18-2022 End: 08-20-2022 Office outpatient visit 10 minutes Jasper Chong MD Work Phone: [facility] Start: 06-05-2022 End: 06-05-2022 Office outpatient visit 15 minutes Jasper Chong MD Work Phone: [facility] Start: 06-01-2022 End: 06-01-2022 Jasper Chong MD Work Phone: [facility] Start: 05-22-2022 End: 05-22-2022 Office outpatient visit 15 minutes Jasper Chong MD Work Phone: [facility] Start: 03-17-2022 End: 03-17-2022 ambulatory [facility] Work Phone: Start: 03-17-2022 End: 03-17-2022 Patient encounter procedure [facility] Start: 01-09-2022 End: 01-09-2022 Office outpatient visit 10 minutes Jasper Chong MD Work Phone: [facility] Start: 09-04-2021 End: 09-08-2021 Office outpatient visit 25 minutes Jasper Chong MD Work Phone: [facility] Start: 09-04-2021 End: 09-08-2021 Patient encounter procedure Jasper Chong MD Work Phone: [facility]; [facility] Work Phone: Start: 09-04-2021 End: 09-08-2021 Patient encounter status Jasper Chong MD Work Phone: [facility]; [facility] Work Phone: Start: 06-23-2021 End: 06-23-2021 Office outpatient visit 15 minutes Jasper Chong MD Work Phone: [facility] Start: 06-23-2021 End: 06-23-2021 Patient encounter status EULALIA Fuentes LPN [facility]; [facility] Work Phone: Start: 03-17-2021 End: 03-17-2021 Phone Encounter Jasper Chong MD Work Phone: [facility] Start: 03-17-2021 End: 03-17-2021 Jasper Chong MD Work Phone: [facility] Start: 02-27-2021 End: 02-27-2021 Periodic preventive med est patient 18-39 yrs Jasper Chong MD Work Phone: [facility] Start: 01-27-2021 End: 01-27-2021 Office outpatient visit 40 minutes Jasper Chong MD Work Phone: [facility] Start: 01-20-2021 End: 01-20-2021 Annotation/Addendum Jasper Chong MD Work Phone: [facility] Start: 01-20-2021 End: 01-20-2021 Jasper Chong MD Work Phone: [facility] Start: 12-30-2020 End: 12-30-2020 Periodic preventive med est patient 18-39 yrs Jasper Chong MD Work Phone: [facility] Start: 09-09-2020 End: 09-09-2020 Patient encounter procedure [facility] Start: 08-15-2020 End: 08-15-2020 Patient encounter procedure [facility] Start: 07-02-2020 End: 07-05-2020 Office outpatient visit 15 minutes Jasper Chong [facility] Start: 07-02-2020 End: 07-05-2020 Patient encounter procedure Jasper Chong MD Work Phone: [facility]; [facility] Work Phone: Comment on above: [facility] 1-21 pap good 1-20 last one. mammo 7-20 colonoscopy 1- 13. now that 58 had shingles vaccine BD -2017. dental and eye exam yearly. Hep c screen good 3-19 Start: 07-02-2020 Review Jasper Chong [facility] Start: 05-23-2020 End: 05-23-2020 Lab Order Jasper Chong [facility] Start: 05-23-2020 End: 05-23-2020 Jasper Chong MD Work Phone: [facility] Start: 04-27-2020 Review Jasper Chong [facility] Start: 04-26-2020 End: 04-26-2020 Office outpatient visit 25 minutes Jasper Chong [facility] Start: 04-25-2020 End: 05-28-2020 Office outpatient visit 15 minutes Jasper Boneluh [facility] Start: 04-25-2020 Review Jasper Boneluh [facility] Start: 04-25-2020 End: 04-25-2020 Lab Order Jasper Bonejenniei [facility] Start: 04-25-2020 End: 04-25-2020 Jasper Chong MD Work Phone: [facility] Start: 04-03-2020 End: 04-04-2020 Office outpatient visit 40 minutes Jasper Chong [facility] Start: 02-21-2020 End: 02-21-2020 Office outpatient visit 10 minutes Jasper Chong [facility] Start: 01-02-2020 Review Jasper Chong [facility] Start: 01-02-2020 End: 01-02-2020 Office outpatient visit 5 minutes Jasper Chong [facility] Start: 07-21-2019 End: 07-25-2019 Annotation/Addendum Jasper Chong [facility] Start: 07-21-2019 End: 07-25-2019 Jasper Chong MD Work Phone: [facility] Start: 07-10-2019 End: 07-11-2019 Office outpatient visit 15 minutes Jasper Chong [facility] Start: 07-10-2019 End: 07-11-2019 Patient encounter procedure Jasper Chong MD Work Phone: [facility] Start: 06-16-2019 End: 06-16-2019 Lab Order Jasper Chong [facility] Start: 06-16-2019 End: 06-16-2019 Jasper Chong MD Work Phone: [facility] Start: 02-01-2019 End: 02-01-2019 Office outpatient visit 5 minutes Jasper Chong [facility] Start: 01-13-2019 End: 01-13-2019 Office outpatient visit 15 minutes Jasper Chong [facility] Start: 01-03-2019 End: 01-03-2019 Phone Encounter Jasper Chong [facility] Start: 01-03-2019 End: 01-03-2019 Jasper Chong MD Work Phone: [facility] Start: 11-30-2018 End: 12-08-2018 Office outpatient visit 5 minutes Jasper Chong [facility] Start: 11-30-2018 Review Jasper Chong [facility] Start: 07-29-2018 End: 07-29-2018 Phone Encounter Jasper Chong [facility] Start: 07-29-2018 End: 07-29-2018 Jasper Chong MD Work Phone: [facility] Start: 07-14-2018 End: 07-18-2018 Office outpatient visit 15 minutes Jasper Chong [facility] Start: 07-14-2018 End: 07-18-2018 Patient encounter procedure Jasper Chong MD Work Phone: [facility] Start: 07-14-2018 Review Jasper Chong [facility] Start: 06-09-2018 End: 06-09-2018 Lab Order Jasper Chong [facility] Start: 06-09-2018 End: 06-09-2018 Jasper Chong MD Work Phone: [facility] Start: 01-24-2018 End: 01-24-2018 Office outpatient visit 15 minutes Jasper Chong [facility] Start: 12-30-2017 End: 12-30-2017 Phone Encounter Jasper Chong [facility] Start: 12-30-2017 End: 12-30-2017 Jasper Chong MD Work Phone: [facility] Start: 07-23-2017 End: 07-23-2017 Phone Encounter Jasper Chong [facility] Start: 07-23-2017 End: 07-23-2017 Jasper Chong MD Work Phone: [facility] Start: 06-18-2017 End: 06-22-2017 Office outpatient visit 15 minutes Jasper Chong [facility] Start: 06-18-2017 End: 06-22-2017 Patient encounter procedure Jasper Chong MD Work Phone: [facility] Start: 02-23-2017 End: 02-23-2017 Phone Encounter Jasper Chong [facility] Start: 02-23-2017 End: 02-23-2017 Jasper Chong MD Work Phone: [facility] Start: 02-16-2017 End: 02-16-2017 Lab Order Jasper Chong [facility] Start: 02-16-2017 End: 02-16-2017 Jasper Chong MD Work Phone: [facility] Start: 12-24-2016 End: 12-24-2016 Phone Encounter Jasper Chong [facility] Start: 12-24-2016 End: 12-24-2016 Jasper Chong MD Work Phone: [facility] Start: 12-17-2016 End: 12-17-2016 Periodic preventive med est patient 18-39 yrs Jasper Chong [facility] Start: 06-18-2016 End: 06-23-2016 Office outpatient visit 40 minutes Jasper Chong [facility] Start: 06-18-2016 End: 06-23-2016 Patient encounter procedure Jasper Chong MD Work Phone: [facility] Start: 12-02-2015 End: 12-02-2015 Periodic preventive med est patient 40-64yrs Jasper Chong [facility] Start: 11-08-2015 End: 11-08-2015 Lab Order Jasper Chong [facility] Start: 11-08-2015 End: 11-08-2015 Jasper Cohng MD Work Phone: [facility] Start: 07-29-2015 End: 07-29-2015 Office outpatient visit 15 minutes Jasper Chong [facility] Start: 06-18-2015 End: 06-18-2015 Office outpatient visit 15 minutes Jasper Chong [facility] Start: 04-30-2015 End: 04-30-2015 Office outpatient visit 25 minutes Jasper Chong [facility] Start: 12-24-2014 End: 12-24-2014 Patient encounter procedure Jasper Chong MD Work Phone: [facility] Start: 12-24-2014 End: 12-24-2014 Periodic preventive med est patient 65yrs& older Jasper Chong [facility] Start: 12-24-2014 End: 12-24-2014 Physical examination Jasper Chong MD Work Phone: [facility] Start: 10-30-2014 End: 10-30-2014 Office outpatient visit 25 minutes Jasper Chong [facility] Start: 07-31-2014 End: 07-31-2014 Office outpatient visit 25 minutes Jasper Chong [facility] Start: 07-26-2014 End: 07-26-2014 Phone Encounter Jasper Chong [facility] Start: 07-26-2014 End: 07-26-2014 Jasper Chong MD Work Phone: [facility] Start: 07-23-2014 End: 07-23-2014 Office outpatient visit 25 minutes Jasper Chong [facility] Start: 07-09-2014 End: 07-09-2014 Office outpatient visit 25 minutes Jasper Chong [facility] Start: 06-26-2014 End: 06-26-2014 Lab Order Jasper Chong [facility] Start: 06-26-2014 End: 06-26-2014 Jasper Chong MD Work Phone: [facility] Start: 03-19-2014 End: 03-19-2014 Office outpatient visit 15 minutes Jasper Chong [facility] Start: 01-15-2014 End: 01-15-2014 Office outpatient visit 25 minutes Jasper Chong [facility] Start: 01-15-2014 End: 01-15-2014 Patient encounter procedure Jasper Chong MD Work Phone: [facility] Start: 07-17-2013 End: 07-17-2013 Patient encounter procedure Jasper Chong [facility] Start: 07-17-2013 End: 07-17-2013 Jasper Chong MD Work Phone: [facility] Start: 07-10-2013 End: 07-10-2013 Lab Order Jasper Chong [facility] Start: 07-10-2013 End: 07-10-2013 Jasper Chong MD Work Phone: [facility] Start: 03-30-2013 End: 03-30-2013 Patient encounter procedure Jasper Chong [facility] Start: 03-30-2013 End: 03-30-2013 Jasper Chong MD Work Phone: [facility] Start: 01-02-2013 End: 01-02-2013 Patient encounter procedure Jasper Chong [facility] Start: 01-02-2013 End: 01-02-2013 Jasper Chong MD Work Phone: [facility] Start: 12-20-2012 End: 12-20-2012 Annotation/Addendum Jasper Chong [facility] Start: 12-20-2012 End: 12-20-2012 Jasper Chong MD Work Phone: [facility] Start: 06-02-2012 End: 06-02-2012 Patient encounter procedure Jasper Chong [facility] Start: 06-02-2012 End: 06-02-2012 Jasper Chong MD Work Phone: [facility] Start: 01-01-2012 End: 01-01-2012 Patient encounter procedure Jasper Chong [facility] Start: 01-01-2012 End: 01-01-2012 Jasper Chong MD Work Phone: [facility] Start: 12-24-2011 End: 12-24-2011 Lab Order Jasper Chong [facility] Start: 12-24-2011 End: 12-24-2011 Patient encounter procedure Jasper Chong MD Work Phone: [facility] Start: 12-24-2011 End: 12-24-2011 Jasper Chong MD Work Phone: [facility] Start: 12-10-2011 End: 12-10-2011 Phone Encounter Jasper Chong [facility] Start: 12-10-2011 End: 12-10-2011 Jasper Chong MD Work Phone: [facility] Start: 05-12-2011 End: 05-12-2011 Patient encounter procedure Jasper Chong [facility] Start: 05-12-2011 End: 05-12-2011 Jasper Chong MD Work Phone: [facility] Start: 01-26-2011 End: 01-26-2011 Phone Encounter Jasper Chong [facility] Start: 01-26-2011 End: 01-26-2011 Jasper Chong MD Work Phone: [facility] Start: 10-30-2010 End: 10-30-2010 Patient encounter procedure Jasper Chong [facility] Start: 10-30-2010 End: 10-30-2010 Jasper Chong MD Work Phone: [facility] Start: 09-23-2010 End: 09-23-2010 Phone Encounter Jasper Chong [facility] Start: 09-23-2010 End: 09-23-2010 Jasper Chong MD Work Phone: [facility] Start: 05-08-2010 End: 05-08-2010 Annotation/Addendum Jasper Chong [facility] Start: 05-08-2010 End: 05-08-2010 Jasper Chong MD Work Phone: [facility] Start: 04-30-2010 End: 04-30-2010 Patient encounter procedure Jasper Chong [facility] Start: 04-30-2010 End: 04-30-2010 Jasper Chong MD Work Phone: [facility] Start: 04-08-2010 End: 04-08-2010 Phone Encounter Jasper Chong [facility] Start: 04-08-2010 End: 04-08-2010 Jasper Chong MD Work Phone: [facility] Start: 03-31-2010 End: 03-31-2010 Annotation/Addendum Jasper Chong [facility] Start: 03-31-2010 End: 03-31-2010 Patient encounter procedure Jasper Chong [facility] Start: 03-31-2010 End: 03-31-2010 Preprocedural examination done Jasper Chong MD Work Phone: [facility] Start: 03-31-2010 End: 03-31-2010 Jasper Chong MD Work Phone: [facility] Start: 01-22-2010 End: 01-22-2010 Office outpatient visit 15 minutes Jasper Chong [facility] Start: 07-24-2009 End: 07-24-2009 Patient encounter procedure Jasper Chong [facility] Start: 07-24-2009 End: 07-24-2009 Jasper Chong MD Work Phone: [facility] Start: 01-29-2009 End: 01-29-2009 Patient encounter procedure Jasper Chong [facility] Start: 01-29-2009 End: 01-29-2009 Jasper Chong MD Work Phone: [facility] Start: 07-12-2008 End: 07-12-2008 Patient encounter procedure Jasper Chong [facility] Start: 07-12-2008 End: 07-12-2008 Jasper Chong MD Work Phone: [facility] Start: 11-18-2007 End: 11-18-2007 Patient encounter procedure Jasper Chong [facility] Start: 11-18-2007 End: 11-18-2007 Jasper Chong MD Work Phone: [facility] Start: 04-25-2007 End: 04-26-2007 Office outpatient visit 15 minutes Jaspermeredith Hortonchristie [facility] Start: 12-17-2006 End: 12-17-2006 Patient encounter procedure Jasper Chong [facility] Start: 12-17-2006 End: 12-17-2006 Jasper Chong MD Work Phone: [facility] Start: 05-31-2006 End: 05-31-2006 Patient encounter procedure Jasper Chong [facility] Start: 05-31-2006 End: 05-31-2006 Jasper Chong MD Work Phone: [facility] Start: 05-26-2006 End: 05-26-2006 Historical Summary Jasper Solchristie [facility] Start: 05-26-2006 End: 05-26-2006 Jasper Chong MD Work Phone: [facility] Start: 05-17-2006 End: 05-17-2006 Historical Summary Jasper Murtazaluh [facility] Start: 05-17-2006 End: 05-17-2006 Jasper Chong MD Work Phone: [facility] Patient encounter procedure Maria Elena Suarez LPN [facility]; [facility] Work Phone: Patient encounter procedure Jasper Chong MD Work Phone: [facility]; [facility] Work Phone: Patient encounter procedure Jazmin Reyesruben [facility] Work Phone: Patient encounter procedure Jazmin Torresdalton [facility] Work Phone: Patient encounter procedure Joana Bowen [facility] Work Phone: Patient encounter procedure Maria Elena Nolenrodolfo [facility] Work Phone: Patient encounter procedure Joana Bowen [facility] Work Phone: Patient encounter procedure Joana Bowen [employer] [facility]; [facility] Work Phone: End: 06-18-2017 Physical examination EULALIA Fuentes [facility]; [facility] Work Phone: Comment on above: mammo in few weeks. bd 8-14. pap 7-13 negative never abnormal pap will do next year. colonscopy 1-13needs tetanus shingles vaccine. she will do tdap a day then end of week get shingles because will not be around immunocomprised father. End: 01-02-2013 Preprocedural examination done Film W[employer]er [facility]; [facility] Work Phone: Procedures Date Procedure Procedure Detail Performing Clinician Start: 02-23-2023 End: 02-23-2023 Procedure Note: See Note; NOTES: [facility] Imaging Services [address] [place] [address] 02/23/23 1220 MR#: [id number] Acct: [id number] Name: SHIRA OROZCO Rep #: [id number] : 1955 67 From: Ned Guardado MD PCP: Dr. Jasper Chong MD Status:DEP CLI Y Location: CT Calcium Scoring Date of Study:: 02/12/23 Indications Indications: Hypercholesterolemia Coronary Calcium Scoring: High-resolution Computed Tomographic imaging of the chest was performed on [02/12/2023], with particular attention paid to the coronary arteries. Images from the examination were analyzed for the presence and extent of coronary artery calcification , using coronary calcium quantification software. The patient tolerated the procedure well and there were no complications. The results of the coronary calcification analysis are provided below. Findings Coronary Artery Left Main (LM): 0 Left Anterior Descending (LAD): 0 Left Circumflex (LCX): 0 Right Coronary Artery (RCA): 0 Total Agatston Score: 0 Percentile Rankin percentile Calcium Scoring Interpretation: Different methods to categorize the overall amount of coronary plaque. Overall amount CAC SIS Visual of coronary plaque P1 Mild -100 <2 1-2 vessels with mild amount of plaque P2 Moderate 101-300 3-4 1-2 vessels with moderate amount, 3 vessels with mild amount of plaque P3 Severe 301-999 5-7 3 vessels with moderate amount, 1 vessel with severe amount of plaque P4 Extensive >1000 >8 2-3 vessels with severe amount of plaque Conclusion: No significant atherosclerotic plaquing noted. 02/23/23 1221 <Electronically signed by Ned Guardado MD> Date Ned Guardado MD Cosigner Signature (if applicable): Date CC: Dr. Jasper Chong MD Signed Jasper Chong MD Work Phone: Start: 02-12-2023 End: 02-15-2023 Procedure Note: See Note; NOTES: [facility] Imaging Services [address] [place] [id number] Cardiac Only MR#: [id number] Acct: [id number] Name: SHIRA OROZCO Rep #: [id number] : 1955 F 67 From: Med Stanford MD PCP: Dr. Jasper Chong MD Status: REG CLI Study: Limited Chest CT Cardiac Only Date of Exam: Exam# [id number] Ordering Dr: Jasper Chong MD INDICATION: Limited chest overread onlyCALCIUM SCORING EXAMINATION: CT CHEST WITHOUT CONTRAST - CT Chest W/O Contrast Injection TECHNIQUE: Helically acquired images were obtained of the chest. A radiation dose optimization technique was used for this scan. IV Contrast dosage and agent: None. COMPARISON: 01/07/2023 FINDINGS: LUNGS, PLEURA AND LARGE AIRWAYS: There is no change in the form of minor noncalcified nodule in the right middle lobe lung zone image 39 consistent with a noncalcified granuloma or scar. No new noncalcified nodule or mass. No pleural effusion or thickening. No pneumothorax. THYROID: No thyroid lesions. HEART AND PERICARDIUM: Heart size is normal. No pericardial effusion. CORONARY ARTERIES: Coronary artery calcification is not seen. VESSELS: Thoracic aorta is not dilated. MEDIASTINUM AND JOSE: No mediastinal or hilar adenopathy. Esophagus is unremarkable. No hiatal hernia. UPPER ABDOMEN: No acute pathology. BONES: No suspicious lytic or blastic abnormality. CT/Limited Chest CT Cardiac Only IMPRESSION: No active disease on this limited CT the chest done for coronary artery calcium scoring. The patient has had a recent complete CT of the chest. Electronically Signed: Med Stanford MD at 9:53 EDT , CC: Dr. Jasper Cohng MD [employer]: Signed Jasper Chong MD Work Phone: Start: 02-12-2023 CT angiography of coronary arteries Start: 01-07-2023 CT of chest without contrast Dr. Jasper Chong Work Phone: Start: 01-07-2023 End: 01-07-2023 Procedure Note: See Note; NOTES: [facility] Imaging Services [address] [place] [address] Chest without Contrast MR#: [id number] Acct: [id number] Name: SHIRA OROZCO Rep #: [id number] : 1955 F 67 From: Teo Modi MD PCP: Dr. Jasper Chong MD Status: REG CLI Study: Chest without Contrast Date of Exam: 01/07/23 Exam# [id number] Ordering Dr: Jasper Chong MD INDICATION: Lung nodule EXAMINATION: CT CHEST WITHOUT CONTRAST - CT Chest W/O Contrast Injection TECHNIQUE: Helically acquired images were obtained of the chest. A radiation dose optimization technique was used for this scan. IV Contrast dosage and agent: None. RADIATION DOSAGE (If Supplied By Facility): CTDIvol = ( 7.48 ) mGy, DLP = ( 280.49 ) mGycm COMPARISON: September 15, 2021 FINDINGS: LUNGS, PLEURA AND LARGE AIRWAYS: There is a stable 3 mm nodule in the right middle lobe axial image 73. There is stable reticular nodular scarring in the lung apices. No pleural effusion or thickening. No pneumothorax. THYROID: No thyroid lesions. HEART AND PERICARDIUM: Heart size is normal. No pericardial effusion. CORONARY ARTERIES: Coronary artery calcification VESSELS: Thoracic aorta is not dilated. MEDIASTINUM AND JOSE: No mediastinal or hilar adenopathy. Esophagus is unremarkable. No hiatal hernia. UPPER ABDOMEN: No acute pathology. BONES: No suspicious lytic or blastic abnormality. Bilateral breast calculations are identified. CT/Chest without Contrast IMPRESSION: Stable right middle lobe lung nodule. Continued follow-up recommended. Bilateral breast calcifications. Mammographic follow-up can be obtained for further evaluation. Electronically Signed: Teo Modi, at 9:05 EDT , CC: Dr. Jasper Chong MD [employer]: Signed Jasper Chong MD Work Phone: Start: 01-05-[address] Jasper Chong Work Phone: Start: 01-05-2023 End: 01-05-2023 Procedure Note: See Note; NOTES: [facility] Imaging Services [address] [place] [address] Kidney and Bladder MR#: [id number] Acct: [id number] Name: SHIRA OROZCO Rep #: [id number] : 1955 F 67 From: Ramesh Coronel PCP: Dr. Jasper Chong MD Status: REG CLI Study: Kidney and Bladder Date of Exam: 01/05/23 Exam# [id number] Ordering Dr: Jasper Chong MD INDICATION: Hematuria EXAMINATION: Ultrasound US Kidney(s) complete (eg, kidneys and bladder) TECHNIQUE: Martinez scale and color doppler images were obtained of the kidneys. Imaging is degraded by bowel gas, particularly for the left kidney. COMPARISON: Right upper quadrant ultrasound February 19, 2017; bilateral renal ultrasound June 23, 2016. FINDINGS: RIGHT KIDNEY: 10.57 x 3.40 x 4.39 cm. Cortical thickness is 1.24 cm.. There is no hydronephrosis. No shadowing calculus, focal lesion or perinephric collection is demonstrated. LEFT KIDNEY: 9.71 x 4.79 x 4.63 cm. Cortical thickness is 1.41 cm.. There is no hydronephrosis. No shadowing calculus, focal lesion or perinephric collection is demonstrated. URINARY BLADDER: No acute abnormality. At the time of scanning, the bladder was 7.68 x 7.80 x 9.37 cm, corresponding to a volume of 294 mL. Anterior bladder wall thickness was 5.9 mm US/Kidney and Bladder IMPRESSION: Negative renal ultrasound. Electronically Signed: Boyd Segundo MD at 16:42 EDT Reading Location ID and State: [id number] / Unknown , Service support , CC: Dr. Jasper Chong MD [employer] Internship: Signed Jasper Chong MD Work Phone: Start: 10-07-2022 End: 10-08-2022 Procedure Note: See Note; NOTES: [facility] Cardiovascular Services [address] [place] [address] 12 Lead EKG 10/07/22 1216 MR#: [id number] Acct: [id number] Name: SHIRA OROZCO Rep #: [id number] : 1955 66 From: Ned Guardado MD Attending Dr: Jose Guadalupe Rudd PA-C Status: REG CL I Ordering Dr: Jose Guadalupe Rudd PA-C Date: 10/07/22 Location: [facility] Sex: F C Admitted: Test Reason : PRE-OP Blood Pressure : / mmHG Vent. Rate : 062 BPM Atrial Rate : 062 BPM P-R Int : 176 ms QRS Dur : 112 ms QT Int : 408 ms P-R-T Axes : 057 -53 040 degrees QTc Int : 414 ms Normal sinus rhythm Left anterior fascicular block Abnormal ECG Confirmed by CARTER WELLINGTON, NED ([id number]), index editor MICHEAL BOWMAN ([id number]) on 10/08/2022 7:44:12 AM Referred By: Antonella Patel Confirmed By:NED GUARDADO MD 10/08/22 0744 Date Ned Guardado MD CC: DOMINIQUE Rudd; Dr. Jasper Chong MD; Dr. Antonella Patel MD Signed Jasper Chong MD Work Phone: Start: 05-22-2022 End: 05-22-2022 Procedure Note: See Note; NOTES: [facility] [address] [place] [address] Knee 3 Views MR#: [id number] Acct: [id number] Name: SHIRA OROZCO Rep #: [id number] : 1955 F 66 From: Marcello Rosas MD PCP: Dr. Jasper Chong MD Status: DEP AMB Study: Knee 3 Views Date of Exam: 05/22/22 Exam# [id number] Ordering Dr: Jasper Chong MD STUDY: X-RAY - RIGHT KNEE REASON FOR EXAM: Female, 66 years old. PAIN TECHNIQUE: 3 view(s) of the knee. COMPARISON: None. FINDINGS: Normal visualized distal femur. Normal visualized proximal tibia and fibula. Normal proximal tibiofibular articulation. There is no demonstrated fracture. There is mild degenerative arthrosis of the medial femorotibial compartment. There is mild degenerative arthrosis of the lateral femorotibial compartment. Normal patellofemoral articulation. The soft tissue structures are unremarkable. RAD/Knee 3 Views IMPRESSION: Degenerative arthrosis. Electronically Signed: Marcello Rosas MD at 12:00 EST , CC: Dr. Jasper Chong MD [employer]ship: Signed Jasper Chong MD Work Phone: Start: 03-17-2022 Dual energy X-ray absorptiometry Start: 03-17-2022 End: 03-19-2022 Procedure Note: See Note; NOTES: [facility] Imaging Services [address] [place] [address] Dexa Bone Density Study MR#: [id number] Acct: [id number] Name: SHIRA OROZCO Rep #: [id number] : 1955 F 66 From: Raman peck MD PCP: Dr. Jasper Chong MD Status: REG CLI Study: Dexa Bone Density Study Date of Exam: 03/17/22 Exam# [id number] Ordering Dr: Jasper Chong MD STUDY: DUAL ENERGY X-RAY ABSORPTIOMETRY / DXA REASON FOR EXAM: Female, 66 years old. Z780. The patient is postmenopausal. TECHNIQUE: Bone Mineral Density (BMD) measurements of lumbar spine and bilateral hips were obtained. COMPARISON: Comparison is made with prior study 07/28/2018. FINDINGS: Lumbar Spine (L1-L4): g/cm2 (0.831) / T-score (-1.7) / Z-score (0.3) Findings are suggestive of osteopenia with a moderate fracture risk. Left Femur Total: g/cm2 (0.872) / T-score (-0.6) / Z-score (0.8) Left Femoral Neck: g/cm2 (0.706) / T-score (-1.3) / Z-score (0.4) Right Femur Total: g/cm2 (0.879) / T-score (-0.5) / Z-score (0.9) Right Femoral Neck: g/cm2 (0.749) / T-score (-0.9) / Z-score (0.8) The T-Scores on the most recent prior examination were: Lumbar Spine (L1-L4): There has been worsening of bone density since the previous examination. Left Femur Total: which represents an improvement of 2.1%. Right Femur Total: which represents an improvement of 2.3%. BD/Dexa Bone Density Study IMPRESSION: The patient is considered osteopenic as outlined below according to World Cresencio Organization (WHO) criteria with a moderate fracture risk. There has been improvement of bone density since the previous examination. Reference Information: The T-score is the number of standard deviations above or below the standard which is normal for young adults at their peak bone mineral density. The World Health Organization (WHO) interprets the T-scores as follows: Above -1 Normal bone density Between -1 and -2.5 Osteopenia Equal to / or below -2.5 Osteoporosis As a practical clinical guideline, osteopenia may be graded as follows: Mild -1 through -1.5 Moderate -1.6 through -2.0 Severe -2.1 through -2.4 The Z-score is the number of standard deviations above or below age-matched controls. A Z-score of less than -1.5 would be considered abnormal. References: 1. NIH Osteoporosis and Related Bone Diseases www osteo.org 2. International Society for Clinical Densitometry www iscd.org 3. National Osteoporosis Foundation www nof.org Electronically Signed: Raman Peraza MD at 13:37 EDT Reading Location ID and State: [address] [place] [address] , Service support , CC: Dr. Jasper Chong MD [employer]ship: Signed Jasper Chong MD Work Phone: Start: 03-17-2022 Screening mammography Start: 03-17-2022 End: 03-17-2022 Procedure Note: See Note; NOTES: [facility] Imaging Services [address] [place] [address] SCRN MAMM (CAD)W/MALVIN BILAT MR#: [id number] Acct: [id number] Name: SHIRA OROZCO Rep #: [id number] : 1955 F 66 From: Raman peck MD PCP: Dr. Jasper Chong MD Status: REG [facility] Study: SCRN MAMM (CAD)W/MALVIN BILAT Date of Exam: 02/20 01/09 Exam# [id number] Ordering Dr: Jasper Chong MD MAMMOGRAPHY - BILATERAL SCREENING REASON FOR EXAM: Female, 66 years old. Routine annual screening examination. PERTINENT HISTORY: Aunts with breast cancer. TECHNIQUE: Digital bilateral breast malvin (3D mammographic acquisition) in the CC and MLO projections. 2-D mediolateral oblique (MLO) and craniocaudad (CC) views of both breasts were obtained. CAD: Full Field Digital Mammography with Computer Added Detection was performed. COMPARISON: Comparison is made with prior study dated 03/12/2021 and 01/22/2020. FINDINGS: Breast Composition: The breasts are heterogeneously dense, which may obscure small masses. There are no dominant masses or suspicious calcifications. Stable scattered bilateral macrocalcifications. No other significant abnormalities are identified. There has been no significant change since the prior study. BI/SCRN MAMM (CAD)W/MALVIN BILAT IMPRESSION: Stable bilateral screening mammogram. Yearly follow-up mammogram recommended. (A) ASSESSMENT CATEGORY: BIRADS Category 2: Benign. A letter regarding these results will be sent to the patient by the facility within 30 days. Approximately 10% of breast cancers are not detected by mammography. A normal mammogram should not delay biopsy of a clinically suspicious abnormality. [id number] Electronically Signed: Raman Peraza MD at 14:33 EDT Reading Location ID and State: [address] [place] [address] , Service support , CC: Dr. Jasper Chong MD [employer] Internship: Signed Jasper Chong MD Work Phone: Start: 09-15-2021 End: 09-15-2021 Comments: See Note; NOTES: [facility] Imaging Services [address] [place] [address] Chest without Contrast MR#: [id number] Acct: [id number] Name: SHIRA OROZCO Rep #: [id number] : 1955 F 65 From: Eron Coronel PCP: Dr. Jasper Chong MD Status: REG CLI Study: Chest without Contrast Date of Exam: 09/15/21 Exam# [id number] Ordering Dr: Jasper Chong MD STUDY: CT Chest W/O Contrast Injection 09/15/2021 5:43 PM REASON FOR EXAM: Female, 65 years old. LUNG NODULE Individualized dose optimization techniques were used for this CT. TECHNIQUE: Transaxial imaging was performed withoutIV contrast material. COMPARISON: 8.3.20 FINDINGS: There is no pneumothorax. There is no demonstrated pleural abnormality. 3.1 mm nodule in the right middle lobe. SE 4 IM: 75. ACR Lung CT Screening Reporting T Data System (Lung-RADS) score: 2 - Benign Appearance or Behavior. Recommend continued annual screening with low-dose CT (LDCT) in 12 months. Normal heart and pericardium with no evidence for calcifications of the coronary arteries. Normal mediastinum. Normal hilar regions. Normal pulmonary arteries. There is atherosclerotic calcification of the aortic arch with tortuosity and elongation of the aortic arch and descending thoracic aorta. There are multi-level degenerative changes of the thoracic spine. There are no acute findings of the upper abdomen. CT/Chest without Contrast IMPRESSION: 3.1 mm nodule in the right middle lobe. SE 4 IM: 75. This is decreased in size. ACR Lung CT Screening Reporting T Data System (Lung-RADS) score: 2 - Benign Appearance or Behavior. Recommend continued annual screening with low-dose CT (LDCT) in 12 months. Electronically Signed: Eron Osorio MD at 17:46 EDT , CC: Dr. Jasper Chong MD [employer]ship: Signed Jasper Chong MD Work Phone: Start: 07-16-2021 End: 07-16-2021 Comments: See Note; NOTES: [facility] [address] [place] [address] Ankle min 3 Views MR#: [id number] Acct: [id number] Name: SHIRA OROZCO Rep #: [id number] : 1955 F 65 From: Lyle Poe MD PCP: Dr. Jasper Chong MD Status: DEP AMB Study: Ankle min 3 Views Date of Exam: 07/16/21 Exam# [id number] Ordering Dr: Cheryl Acosta DPM STUDY: X-RAY - LEFT ANKLE REASON FOR EXAM: Female, 65 years old. Pain. TECHNIQUE: 3 view(s) of the ankle. COMPARISON: 06/23/2021. FINDINGS: Osteopenia. Transverse fracture of the distal fibula unchanged. Normal medial malleolus. Normal tibiotalar articulation and ankle mortise. Normal visualized talus and calcaneus. The visualized subtalar, talonavicular, calcaneocuboid and tarsal articulations are normal. The soft tissue structures are unremarkable. RAD/Ankle min 3 Views IMPRESSION: Stable osteopenia with transverse fracture of the distal fibula. No complicating features and no callus formation at this time. Electronically Signed: Lyle Poe MD at 10:33 EST , CC: DPShirin Acosta; Dr. Jasper Chong MD [employer] Internship: Signed Jasper Chong MD Work Phone: Start: 06-23-2021 End: 06-23-2021 Ankle min 3 Views Comments: See Note; NOTES: [facility] [address] [place] [address] Ankle min 3 Views MR#: [id number] Acct: [id number] Name: SHIRA OROZCO Rep #: [id number] : 1955 F 65 From: Raman peck MD PCP: Dr. Jasper Chong MD Status: DEP AMB Study: Ankle min 3 Views Date of Exam: 06/23/21 Exam# [id number] Ordering Dr: Jasper Chong MD STUDY: X-RAY - LEFT ANKLE REASON FOR EXAM: Female, 65 years old. Ankle pain/swelling -- STAT TECHNIQUE: 3 view(s) of the ankle. COMPARISON: Comparison is made with prior study dated 05/16/2021. FINDINGS: Normal visualized distal tibia and fibula. Nondisplaced transverse fracture of the lateral malleolus. Normal tibiotalar articulation and ankle mortise. Normal visualized talus and calcaneus. The visualized subtalar, talonavicular, calcaneocuboid and tarsal articulations are normal. Lateral soft tissue swelling. RAD/Ankle min 3 Views IMPRESSION: Nondisplaced transverse fracture of the lateral malleolus with overlying soft tissue swelling. Electronically Signed: Raman Peraza MD at 10:05 EST , Service support , CC: Dr. Jasper Chong MD [employer] Internship: Signed Jasper Chong MD Work Phone: Start: 05-16-2021 End: 05-16-2021 Emergency Department Summary Comments: See Note; NOTES: [facility] Medical Records Department [address] [place] [address] Emergency Department Summary 05/16/21 MR#: [id number] Acct: [id number] Name: SHIRA OROZCO Rep #: [id number] : 1955 65 From: Teo Castellanos DO PCP: Dr. Jasper Chong MD Status:DEP ER Location: ED HPI History of Present Illness Chief Complaint: Lower Extremity Injury Informant: patient Narrative Narrative: 65-year-old female arrives to the emergency department with left ankle injury. Patient states that she was playing pickle ball when she sustained a inversion injury to the left ankle. She denies any other injuries. [facility] Medical History Hypothyroidism Home Medications levothyroxine 88 mcg tablet 88 mcg PO DAILY 30 Days #30 tab 03/28/21 [History Last Taken Unknown] mohpbtid-ypl-ausj-FA-Ca carb-vit K 18 mg iron-400 mcg-500 mg tablet 1 tab PO DAILY 03/28/21 [History Last Taken Unknown] rosuvastatin 5 mg tablet 5 mg PO DAILY 28 Days #28 tab 03/28/21 [History Last Taken Unknown] Allergy/AdvReac Type Severity Reaction Status Date / Time No Known Allergies Allergy Verified 05/16/21 11:03 Family History Father CVA (cerebral vascular accident), Onset Age: 82 Surgical History H/O tubal ligation History of foot surgery Social History Smoking Status: Never smoker alcohol intake: current Alcohol type: wine ROS ROS ED Constitutional Constitutional ED: Denies chills, fever(s) or weight loss Eyes Eyes: Denies change in vision or diplopia ENT ENT ED: Denies ear pain, rhinorrhea or sore throat Cardiovascular Cardiovascular: Denies chest pain, orthopnea, palpitations or racing heartbeat Respiratory/Chest Respiratory/Chest: Denies cough, dyspnea or orthopnea Gastrointestinal Gastrointestinal: Denies abdominal pain, diarrhea, nausea or vomiting Genitourinary Genitourinary ED: Denies dysuria, hematuria or urinary frequency Musculoskeletal Musculoskeletal: Reports other Details: See history of present illness ; Denies arthralgias or myalgias Integumentary Denies abscess or rash Neurologic Neurologic: Denies headache(s) or weakness Psychiatric Psychiatric: Denies anxiety, depression, suicidal ideation or suicidal thoughts Endocrine Endocrinology: Denies polydipsia, polyphagia or polyuria Allergic/Immunologic Allergic/Immunologic ED: Denies mouth swelling, tongue swelling or urticaria EXAM Physical Exam Const Vital Signs: 05/16/21 11:01 Temperature 97.9 F Temperature Source Temporal Pulse Rate 67 Respiratory Rate 18 Blood Pressure 130/79 H Blood Pressure Mean 96 Pulse Ox 100 Oxygen Delivery Method Room Air Positive well nourished and well developed General Appearance ED: well developed HEENT Reports normocephalic, head/scalp atraumatic and moist mucous membranes normocephalic and atraumatic Eyes PERRL and EOMs intact bilaterally Neck full ROM, no lymphadenopathy, supple and no JVD Resp normal respiratory effort and clear to auscultation bilaterally Cardio regular rate, regular rhythm and no murmurs GI normal to inspection, nondistended, normoactive bowel sounds and non-tender Palpation: soft Back/Spine no CVA tenderness and normal ROM Extremity Extremity Narrative: Left ankle demonstrates swelling and tenderness over the lateral malleolus. There is no fifth metatarsal pain or fibular head pain. No medial or posterior malleoli or pain. Achilles tendon appears intact. General Extremety ED: Yes edema General Extremity: edema Neuro oriented x3 and CN's II-XII intact bilaterally Sensorium / Orientation: alert Motor Exam: strength 5/5 throughout Psych mental status grossly normal Mood Affect: Negative for depressed or tearful Skin no rashes or lesions noted and no wounds MDM MDM MDM Narrative Medical decision making narrative: My interpretation of the ankle films is no acute fracture. Patient will be treated conservatively and will use an air cast Radiography Diagnostic Testing: Clinical Impression(s) from Imaging Studies Ankle X-Ray 05/16/21 11:26 IMPRESSION: No fracture or dislocation. Electronically Signed: Antonella Jo MD at 12:04 EST Tel , Service support , Discharge Plan Triage Chief Complaint: Lower Extremity Injury ED Provider: Teo Castellanos Dx/Rx/DC Orders Clinical Impression: Left ankle sprain Instructions: ED Ankle Sprain (Adult) Prescriptions: No Action levothyroxine 88 mcg tablet 88 mcg PO DAILY 30 Days Qty: 30 RF: 0 rosuvastatin 5 mg tablet 5 mg PO DAILY 28 Days Qty: 28 RF: 0 Women's Daily Formula 18 mg iron-400 mcg-500 mg tablet 1 tab PO DAILY RF: 0 Primary Care Provider: Jasper Chong Referrals: Jasper Chong MD [Primary Care Provider] - As Needed Disposition Disposition: Home, Self Care What to do if you have Problems For any increased pain, shortness of breath, bleeding, nausea or vomiting, chest pain, or any unexpected problems, contact your Primary Care Provider. Call [facility] ([phone]) or report to the closest Emergency Room. Call 911 if necessary. 05/16/21 1412 <Electronically signed by Teo Castellanos DO> Cosigner Signature (if applicable): CC: Dr. Jasper Chong MD Signed Jasper Chong MD Work Phone: Start: 05-16-2021 End: 05-16-2021 Ankle min 3 Views Comments: See Note; NOTES: [facility] Imaging Services [address] [place] [address] Ankle min 3 Views MR#: [id number] Acct: [id number] Name: SHIRA OROZCO Rep #: [id number] : 1955 F 65 From: Antonella Jo MD PCP: Dr. Jasper Chong MD Status: REG ER Study: Ankle min 3 Views Date of Exam: 05/16/21 Exam# [id number] Ordering Dr: Provider,Ed P. No fracture or dislocation in the left ankle. Mild soft tissue swelling. STUDY: X-RAY - LEFT ANKLE REASON FOR EXAM: Female, 65 years old. Injury TECHNIQUE: 3 view(s) of the ankle. COMPARISON: None. FINDINGS: There is no evidence of fracture or dislocation. There are no significant degenerative changes. There are no radiodense foreign bodies. There is mild soft tissue swelling. RAD/Ankle min 3 Views IMPRESSION: No fracture or dislocation. Electronically Signed: Antonella Jo MD at 12:04 EST Tel , Service support , CC: Dr. Jasper Chong MD; ED PHYSICIAN PROVIDER [employer] Internship: Signed Jasper Chong MD Work Phone: Start: 03-28-2021 End: 03-28-2021 Lumbar Spine 2 or 3 Views Comments: See Note; NOTES: [facility] [address] [place] [address] Lumbar Spine 2 or 3 Views MR#: [id number] Acct: [id number] Name: SHIRA OROZCO Rep #: [id number] : 1955 F 65 From: Karla Lopes MD PCP: Dr. Jasper Chong MD Status: DEP AMB Study: Lumbar Spine 2 or 3 Views Date of Exam: Exam# [id number] Ordering Dr: Bacilio Cotto DO STUDY: X-RAY - LUMBAR SPINE REASON FOR EXAM: Female, 65 years old. Low back pain TECHNIQUE: 2 view(s) of the lumbar spine were obtained. COMPARISON: None FINDINGS: Normal lumbar lordosis. There is no substantial scoliosis. There is a normal alignment of the vertebrae. There is multilevel endplate spondylosis of the lumbar vertebrae. There is mild multi-level degenerative disc disease with multi-level disc space narrowing. The soft tissue structures are unremarkable. RAD/Lumbar Spine 2 or 3 Views IMPRESSION: Multilevel degenerative changes. Electronically Signed: Karla Lopes MD at 19:16 EDT Tel , Service support , CC: Dr. Jasper Chong MD; Dr. Bacilio Cotto DO [employer] Internship: Signed Bacliio Cotto Work Phone: Start: 03-28-2021 End: 03-28-2021 Orthopedic Visit Report Comments: See Note; NOTES: [facility] [address] [place] [address] OFFICE VISIT Date of Service: 03/28/21 MR#: [id number] Acct: [id number] Name: SHIRA OROZCO Rep #: [id number] : 1955 Provider: Dr. Bacilio chacon DO Age/Sex: 65/F Location: [facility] Status: Signed Intake Intake Visit Reasons: lumbar spine Chief Complaint: CALCIUM SCORING Allergies No Known Allergies Allergy (Unverified 04/29/18 15:28) Medications levothyroxine 88 mcg tablet 88 mcg PO DAILY 30 Days #30 tab 03/28/21 [History Confirmed 03/28/21] zxairrsv-acd-rtwz-FA-Ca carb-vit K 18 mg iron-400 mcg-500 mg tablet 1 tab PO DAILY 03/28/21 [History Confirmed 03/28/21] rosuvastatin 5 mg tablet 5 mg PO DAILY 28 Days #28 tab 03/28/21 [History Confirmed 03/28/21] PFSH Medical History Hypothyroidism Surgical History H/O tubal ligation History of foot surgery Family History Father CVA (cerebral vascular accident), Onset Age: 82 Social History Smoking Status: Never smoker alcohol intake: current Alcohol type: wine HPI lumbar spine Details: Parts of this documentation were recorded by a scribe, this documentation accurately reflects the service provided and the decisions made by , Dr. Bacilio Cotto DO 03/28/21 1048. SHIRA OROZCO is a 65 year old F here today referred by Dr. Chong for her lumbar MRI results from 03/12/21. She has more discomfort in her low back over pain. Does have radiating pain in her right buttocks and right leg. She does have numbness and tingling in the leg and buttock. She does do exercises inside [facility] that have been somewhat effective, denies any formal physical therapy. Denies any previous surgeries, injections, and injuries. Mrs. Orozco is a most pleasant young lady 65 years old that has a chief complaint of right buttocks pain that radiates down the right leg and what is described as either an S1 or an L5 dermatome. This has been going on for about 3 months. She plays a lot of pickleball and it seems that the pickleball aggravates it. He had some physical therapy for it however it has not really helped it. The pain is not severe. She states that she can walk a long ways. She denies any bowel or bladder dysfunction. She denies history of unexplained weight loss night fever sweats or chills. On examination she has no pain to speak of with extension or flexion of her lumbar spine. She is quite flexible for a lady 65 years old. She has excellent motor strength of all the major muscle groups of both lower extremities. She has 2+ patella and Achilles reflexes bilaterally. She has no muscle atrophy. She has no long tract signs. Clonus is absent Babinski's are downgoing. Plain x-rays demonstrate that she has a very early grade 1 spondylolisthesis of L4 on 5. The MRI scan that was done recently demonstrates that she does indeed have spinal stenosis at L4-5. At most it is moderate in severity or perhaps between mild and moderate. It is certainly not a surgical problem. I explained to her that if she continues to play pickle ball and exercise and lift weights as she has done that she might aggravate the symptoms but she is not really causing any damage. In some point if she can stand any further she should consider lumbar epidural steroid injections. She will think that possibility over she will return to playing her pickleball and see how she holds up. I will see her on a as needed basis. Coding Level of Care Code Off vis,new,level 3 Diagnoses Spinal stenosis at L4-L5 level M48.061 Time Spent (min) 30 Assessment and Plan Assessment and Plan (1) Spinal stenosis at L4-L5 level: Status: Acute Plan Details Other Orders: Orders: Lumbar Spine 2 or 3 Views Today M54.50 03/28/21 1157 <Electronically signed by Bacilio Cotto DO> Date Bacilio Cotto DO Cosigner Signature: Date (if applicable) CC: MD Jasper Montesinos MD Work Phone: Start: 03-12-2021 End: 03-12-2021 SCRN MAMM (CAD)W/MALVIN BILAT Comments: See Note; NOTES: [facility] Imaging Services [address] [place], [place] [id number] SCRN MAMM (CAD)W/MALVIN BILAT MR#: [id number] Acct: [id number] Name: SHIRA OROZCO Rep #: [id number] : 1955 F 65 From: Raman peck MD PCP: Dr. Jasper Chong MD Status: REG [facility] Study: SCRN MAMM (CAD)W/MALVIN BILAT Date of Exam: 02/20 08/11 Exam# [id number] Ordering Dr: Jasper Chong MD MAMMOGRAPHY - BILATERAL SCREENING REASON FOR EXAM: Female, 65 years old. Routine annual screening examination. PERTINENT HISTORY: Aunts with breast cancer. TECHNIQUE: Digital bilateral breast malvin (3D mammographic acquisition) in the CC and MLO projections. 2-D mediolateral oblique (MLO) and craniocaudad (CC) views of both breasts were obtained. CAD: Full Field Digital Mammography with Computer Added Detection was performed. COMPARISON: Comparison is made with prior study dated 01/22/2020 and 01/16/2019. FINDINGS: Breast Composition: The breasts are heterogeneously dense, which may obscure small masses. There are no dominant masses or suspicious calcifications. Stable scattered bilateral macrocalcifications. No other significant abnormalities are identified. There has been no significant change since the prior study. BI/SCRN MAMM (CAD)W/MALVIN BILAT IMPRESSION: Stable bilateral screening mammogram. Yearly follow-up mammogram recommended. (A) ASSESSMENT CATEGORY: BIRADS Category 2: Benign. A letter regarding these results will be sent to the patient by the facility within 30 days. Approximately 10% of breast cancers are not detected by mammography. A normal mammogram should not delay biopsy of a clinically suspicious abnormality. [id number] Electronically Signed: Raman Peraza MD at 9:41 EDT , Service support , CC: Dr. Jasper Chong MD [employer] Internship: Signed Jasper Chong MD Work Phone: Start: 03-12-2021 End: 03-12-2021 Spine Lumbar (Routine) Comments: See Note; NOTES: [facility] Imaging Services [address] [place] [id number] Spine Lumbar (Routine) MR#: [id number] Acct: [id number] Name: SHIRA OROZCO Rep #: [id number] : 1955 F 65 From: Charity chacon MD PCP: Dr. Jasper Chong MD Status: REG CLI Study: Spine Lumbar (Routine) Date of Exam: 03/12/21 Exam# [id number] Ordering Dr: Jasper Chong MD HISTORY: Right sciatica. TECHNIQUE: Multiplanar and multisequence MR images of the lumbar spine. IV Contrast dosage and agent: None. # of images incl. paperwork: 120. COMPARISON: None. FINDINGS: VERTEBRAE: Vertebral body heights maintained. Mild bilateral pedicle bone marrow edema at L4-5 extending to the facets. ALIGNMENT: No significant anterior or posterior subluxation. CONUS: Normal morphology and position at L1-2. SOFT TISSUES: No paraspinal fluid collection. INTERVERTEBRAL DISCS: T12-L1, L1-2: No significant posterior disc herniation, central canal stenosis, or foraminal narrowing. Small perineural cysts incidentally noted. L2-3, L3-4:Minimal disc bulges and facet arthropathy without significant central canal stenosis or foraminal narrowing. L4-5: Mild posterior disc bulge osteophyte complex with facet arthropathy resulting in moderate central canal stenosis, mild left, and very mild right foraminal narrowing. L5-S1: Mild posterior disc bulge osteophyte complex with facet arthropathy resulting in minimal narrowing of the thecal sac and bilateral foramina. MRI/Spine Lumbar (Routine) IMPRESSION: Multilevel degenerative disc disease with spinal canal stenosis at L4-5 as described above. Mild bone marrow edema in the posterior elements of L4 and L5, from arthritis or stress reaction. at 1003 Reported and signed by: Charity Blanchadr MD Electronically Signed: Charity Blanchard MD at 10:02 EDT Tel , Service support , CC: Dr. Jasper Chong MD Landscape Maintenance Internship: Signed Jasper Chong MD Work Phone: Start: 02-25-2021 End: 02-25-2021 PT D/C Summary (1) Comments: See Note; NOTES: [facility] [address] [place] [address]. [address] [place] [address] / REHABILITATION SERVICES DISCHARGE SUMMARY MR#: [id number] Acct: [id number] Name: SHIRA OROZCO Rep #: [id number] : 1955 65 From: Claudine Hernandez PT, Cert. MDT Referring Dr.: Dr. Jasper Chong MD Status: REG RCR Insurance: MEDICARE PART A B [facility] It has been my pleasure to treat SHIRA OROZCO referred by Dr. Jasper Chong MD, with the diagnosis of R SCIATICA for a total of 10 visit(s). Discharge Date: Please see the following information for a summary of their discharge status. Subjective: PATIENT REPORTS SHE WAS PAINFREE ALL DAY YESTERDAY. STATES THAT YESTERDAY SHE COOKED DINNER FOR COMPANY, DID EX'S, CLEANED, GROCERY SHOPPED AND STAYED BUSY. STATES SHE HAD A LITTLE PAIN THIS MORNING DOWN HER RIGHT LEG BUT SHE THINKS SHE GOT OUT OF BED TOO EARLY AND TOO QUICKLY. THE PAIN ONLY LASTED A FEW MINUTES. PATIENT REPORTS FEELING BETTER AFTER THE US TREATMENTS AND QUESTIONING IF SHE CAN HAVE THEM PERIODICALLY NEEDED. Lumbar Spine Pain Intensity (Out of 10): 0 % Improvement: 97 Objective/Function: PATIENT WAS SEEN TODAY FOR RE-ASSESSMENT OF PROGRESS TOWARD THE SET PT GOALS AND THE NEED FOR FURTHER PHYSICAL THERAPY VS READINESS FOR DISCHARGE. PATIENT HAS MADE GOOD PROGRESS TOWARD ALL PT GOALS AND SHE IS INDEP WITH A HEP. I AM HOPEFUL THAT SHE WILL CONTINUE TO IMPROVE WITH WHAT WE HAVE TAUGHT HER AND BE ABLE TO GET BACK TO HER PRIOR LEVEL OF FUNCTION BUT AT THIS POINT SHE IS STILL LIMITING HER ACTIVITES. UPON EXAM TODAY: Motor deficit: YOSEPH LE'S 5/5. ROM deficit: YOSEPH LE'S WFL. DURAL SIGNS: NEGATIVE YOSEPH LE'S. Lumbar mvmt loss: flex - NIL. ext - NIL. R SG - MOD. L SG - MOD. PATIENT DENIES PAIN WITH LUMBAR ROM TESTING ALL PLANES. FURTHER HEP INSTRUCTION GIVEN TODAY FOR THE ADDITION OF GTB LAE'S AND MULTIFIDUS PUSH OUTS. INCREASED MR'S TO BTB. PATIENT TOLERATED ALL INTERVENTIONS WELL TODAY. Goal 1:: DECREASE C/O LOW BACK AND RIGHT LE SX'S. Goal Progress: Goal Met Goal 2:: IMPROVE LIFTING, STANDING, SLEEP, TRAVEL AND HOMEMAKING FUNCTION Goal Progress: Goal Met Goal 3:: INSTRUCT IN PROPHYLAXIS Goal Progress: Goal Met Plan: D/C TO HEP AND FOLLOW UP WITH PCP. PATIENT AGREEABLE. If there are questions or concerns regarding this patient's physical therapy, please feel free to call me at [phone]. Thank you for the referral of this patient. Sincerely, Claudine Hernandez PT Cert T Balance/Gait/Functional tests - Balance/Special Test Scores Oswestry Low Back Score: 10 <Electronically signed by Cert. AMISH Grider PTT> 02/25/21 1046 CC: Dr. Jasper Chong MD KATTY Signed Jasper Chong MD Work Phone: Start: 01-30-2021 End: 01-30-2021 Inital Evaluation (1) - PT Comments: See Note; NOTES: [facility] [address] [place] [address] / REHABILITATION SERVICES INITIAL EVALUATION MR#: [id number] Acct: [id number] Name: SHIRA OROZCO Rep #: [id number] : 1955 65 From: Eamon Grider PT. T Referring Dr.: Dr. Jasper Chong MD Status: REG RCR Insurance: MEDICARE PART A B [facility] Patient's Visit Information SHIRA OROZCO is a 65 year old F referred to Physical Therapy by Dr. Jasper Chong MD with a diagnosis of R SCIATICA. Date of Evaluation: 01/30/21 Physical Therapist: Claudine Hernandez PT, Cert MDT - Visit Plan Frequency: 2-3x /Week Duration: 4-6 Weeks Plan: AQUATIC AND LAND PT FOR PAIN RELIEF, POSTURE CORRECTION/STRENGTHENING, INSTRUCTION IN APPROPRIATE BODY MECHANICS AND ACTIVITY MODIFICATIONS. DLS STARTING WITH A NEUTRAL SPINE PROGRE SSING ROM TOLERATED. YOSEPH LE ROM, STRETCHING AND STRENGTHENING. HEP INSTRUCTION. - Subjective Work/Leisure: RETIRED. LIKES TO PLAY PICKLE BALL AND DOES SOME HOME EX'S. Present symptoms: RIGHT LOW BACK PAIN, RIGHT THIGH, RIGHT LEG AND RIGHT FOOT PAIN. FEELS LIKE ELECTRICITY GOING THROUGH MY LEG. ALSO GETS NUMBNESS AND TINGLING ALL THE WAY DOWN THE LEG. Present since: ABOUT 8 WEEKS AGO. Pain Scale: WORST 9/10, LEAST 0/10. Currently: 06/30. Commenced as a result of: NO APPARENT REASON. Symptoms at onset: RIGHT LE. Worse: STANDING, TRYING TO GET COMFORTABLE IN BED, ROLLING OVER IN BED, GETTING OUT OF BED, INITIATING GAIT IN THE MORNING. WORKING IN THE KITCHEN. Better: FLEXION IN STANDING, SITTING ON A CHAIR, RIGHT LE EVELINA POSITION IN SITTING. Disturbed sleep: YES. Previous history/Previous treatment: STATES SHE HAD ABOUT 10 WEEKS [facility]OCTOBER [facility] FOR PLANTAR FASCITIS LEFT FOOT. STATES SHE HAD NECK, BACK AND HIP [facility] ALSO GAVE HER A LIFT IN LEFT SHOE STARTING IN AUGUST. L FOOT SX'S ARE GONE. STILL WEARING THE HEEL LIFT. [facility] 2 WEEKS A[facility] GETTING BACK THIS PAST WEDNESDAY. PATIENT REPORTS SHE ENDED UP WITH A NECK BRACE, A BACK BRACE AND A HEEL LIFT FROM THE [facility]. NOT CURRENTLY USING NECK OR BACK BRACE ANYMORE. Treatment this episode: STEROID BEFORE [employer] - PATIENT DOES NOT THINK IT HELPED. PATIENT DENIES ANY OTHER TREATMENTS SINCE ONSET OF R SCIATICA ABOUT 8 WKS AGO. SCIATICA STARTED WITHIN ABOUT A MONTH AFTER LAST [facility]. Coughing/sneezing/straining: NEGATIVE. Gait: IF IT HURTS IT CAUSES LIMP ON RIGHT LE AND PATIENT WALKS FAST SO SHE CAN GET OFF HER FEET SOON POSSIBLE. WALKING THROUGH AIRPORT WAS AWFUL. Difficulty initiating urinatin: NO. Accidents: NO. Unexplained weight loss: NO. Imaging: JUST LUMBAR X-RAY AT [facility] WHEN THERE FOR PLANTAR FASCITIS. PMH/Recent major surgery: HYPOTHYROIDISM. HIGH CHOLESTEROL. - Objective Sitting/Standing Posture: FAIR. Lordosis: REDUCED. Lateral shift: NO. Relevant shift: N/A. Active Correction of posture: NE. Other Observations: INDEP GAIT AND TRANSFERS. Motor deficit: YOSEPH LE'S 5/5 WITH MMT'ING EXCEPT R HIP 4-/5 AND L 4/5. Sensory deficit: YOSEPH LE LIGHT TOUCH SENSATION INTACT AND SYMMETRICAL. ROM deficit: YOSEPH LE'S WFL. Reflexes: 2/3 YOSEPH LE'S. DURAL SIGNS: NEGATIVE YOSEPH. Lumbar mvmt loss: flex - NIL. ext - NIL. R SG - MOD. L SG - MOD. Core strength: FAIR. Palpation: NO ACUTE LUMBAR OR SACRAL TENDERNESS. TREATMENT: NEUROMUSCULAR REEDUCATION - RETRAINING OF MVMT AND POSTURE FOR SITTING, LYING AND STANDING ACTIVITIES. - Balance/Special Test Scores Oswestry Low Back Score: 12 - Goals Goal 1:: DECREASE C/O LOW BACK AND RIGHT LE SX'S. Goal Time Frame: 4-6 Weeks Goal 2:: IMPROVE LIFTING, STANDING, SLEEP, TRAVEL AND HOMEMAKING FUNCTION Goal Time Frame: 4-6 Weeks Goal 3:: INSTRUCT IN PROPHYLAXIS Goal Time Frame: 4-6 Weeks - Anticipated Interventions Patient/Client Instruction: Educate patient on: Condition, Plan of Care, Risk Factors For the Purpose of:: To improve self management Therapeutic Exercise to Include: Strength training, Body mechanics, Postural training, Neuromotor development, In an aquatic setting, Dynamic Lumbar Stabilization For the Purpose of:: To decrease pain, To improve muscle performance and motor function, To increase tolerance to activity/condition/position, To improve ability of physical actions for home/community/work/leisure TENS: Yes IF ES: Yes Cryotherapy (ice pack, ice massage): Yes Thermo therapy (hot pack): Yes Ultrasound (thermal/non thermal): Yes For the Purpose of:: To decrease pain, To improve nutrient delivery to tissue Thank you for the opportunity to evaluate your patient. For Medicare and Medicare HMO plans, please review the plan of care and approve it. It will need to be FAXED BACK to us at [phone] for Medicare purposes. For Medicare only, by signing this I certify the plan of care. Please let me know if there are questions or concerns regarding this plan of care. Physician Signature: ___Date: <Electronically signed by Claudine Hernandez PT, Cert. T> 01/30/21 1429 CC: Dr. Jasper Chong MD KATTY Signed Jasper Chong MD Work Phone: Start: 01-22-2020 End: 01-23-2020 Chest without Contrast Comments: See Note; NOTES: [facility] Imaging Services [address] [place] [address] Chest without Contrast MR#: [id number] Acct: [id number] Name: SHIRA OROZCO Rep #: [id number] : 1955 F 64 From: Raman peck MD PCP: Dr. Jasper Chong MD Status: REG CLI Study: Chest without Contrast Date of Exam: 01/22/20 Exam# [id number] Ordering Dr: Jasper Chong MD STUDY: CT CHEST WITHOUT CONTRAST REASON FOR EXAM: Female, 64 years old. LUNG NODULE FOLLOW UP RADIATION DOSAGE (If Supplied By Facility): CTDIvol = ( 8.25 ) mGy, DLP = ( 299.47 ) mGycm TECHNIQUE: Transaxial imaging was performed without the administration of intravenous contrast material. Multiplanar coronal and sagittal images were reformatted. Individualized dose optimization techniques were used for this CT. COMPARISON: Comparison is made with prior study dated 12/20/2018. FINDINGS: Small benign-appearing bilateral axillary lymph nodes. Stable minimal scarring at the lung apices. Stable 4 mm noncalcified nodule in the anterior aspect of right middle lobe as seen on axial image #154. There is no demonstrated pleural abnormality. Normal heart and pericardium. Normal mediastinum. Normal hilar regions. Normal unenhanced pulmonary arteries. There is mild atherosclerotic calcification of the aortic arch . There are multi-level degenerative changes of the thoracic spine. There is no demonstrated abnormality of the visualized upper abdomen. CT/Chest without Contrast IMPRESSION: Stable 4 mm nodule in the anterior aspect of the right middle lobe. No other abnormality is seen. Electronically Signed: Raman Peraza, at 8:26 EDT , Service support , CC: Dr. Jasper Chong MD Landscape Maintenance Internship: Signed Jasper Chong Work Phone: Start: 01-22-2020 End: 01-22-2020 SCREEN MAMM (CAD) W/MALVIN BILAT Comments: See Note; NOTES: [facility] Imaging Services [address] [place] [address] SCREEN MAMM (CAD) W/MALVIN BILAT MR#: [id number] Acct: [id number] Name: SHIRA OROZCO Rep #: [id number] : 1955 F 64 From: Raman peck MD PCP: Dr. Jasper Chong MD Status: [facility] Study: SCREEN MAMM (CAD) W/MALVIN BILAT Date of Exam: 0 01/22/20 Exam# [id number] Ordering Dr: Jasper Chong MD MAMMOGRAPHY - BILATERAL SCREENING REASON FOR EXAM: Female, 64 years old. Routine annual screening examination. PERTINENT HISTORY: Aunts with breast cancer. TECHNIQUE: Digital bilateral breast malvin (3D mammographic acquisition) in the CC and MLO projections. 2-D mediolateral oblique (MLO) and craniocaudad (CC) views of both breasts were obtained. CAD: Full Field Digital Mammography with Computer Added Detection was performed. COMPARISON: Comparison is made with prior study dated 01/16/2019 and 01/14/2018. FINDINGS: Breast Composition: The breasts are heterogeneously dense, which may obscure small masses. There are no dominant masses or suspicious calcifications. Stable scattered macrocalcifications. No other significant abnormalities are identified. There has been no significant change since the prior study. BI/SCREEN MAMM (CAD) W/MALVIN BILAT IMPRESSION: Stable bilateral screening mammogram. Yearly follow-up mammogram recommended. (A) ASSESSMENT CATEGORY: BIRADS Category 2: Benign. A letter regarding these results will be sent to the patient by the facility within 30 days. Approximately 10% of breast cancers are not detected by mammography. A normal mammogram should not delay biopsy of a clinically suspicious abnormality. [id number] Electronically Signed: Raman Peraza, at 15:05 EDT , Service support , CC: Dr. Jasper Chong MD Landscape Maintenance Internship: Signed Jasper Chong Work Phone: Start: 01-16-2019 End: 01-16-2019 SCREEN MAMM (CAD) W/MALVIN BILAT Comments: See Note; NOTES: [facility] Imaging Services [address] [place] [address] SCREEN MAMM (CAD) W/MALVIN BILAT MR#: [id number] Acct: [id number] Name: SHIRA OROZCO Rep #: [id number] : 1955 F 63 From: Raman Peraza MD PCP: Jasper hCong MD Status: REG [facility] Study: SCREEN MAMM (CAD) W/MALVIN BILAT Date of Exam: 01/16/19 Exam# [id number] Ordering Dr: Jasper Chong MD MAMMOGRAPHY - BILATERAL SCREENING REASON FOR EXAM: Female, 63 years old. Routine annual screening examination. PERTINENT HISTORY: Aunts with breast cancer. TECHNIQUE: Digital bilateral breast malvin (3D mammographic acquisition) in the CC and MLO projections. 2-D mediolateral oblique (MLO) and craniocaudad (CC) views of both breasts were obtained. CAD: Full Field Digital Mammography with Computer Added Detection was performed. COMPARISON: Comparison is made with prior study dated January 14, 2018 and January 11, 2017. FINDINGS: Breast Composition: The breasts are heterogeneously dense, which may obscure small masses. There are no dominant masses or suspicious calcifications. Stable scattered macrocalcifications. No other significant abnormalities are identified. There has been no significant change since the prior study. BI/SCREEN MAMM (CAD) W/MALVIN BILAT IMPRESSION: Stable bilateral screening mammogram. Yearly follow-up mammogram recommended. (A) ASSESSMENT CATEGORY: BIRADS Category 2: Benign. A letter regarding these results will be sent to the patient by the facility within 30 days. Approximately 10% of breast cancers are not detected by mammography. A normal mammogram should not delay biopsy of a clinically suspicious abnormality. [id number] Electronically Signed: Raman Brooke, at 9:12 EDT , Service support , CC: Jasper Chong MD Landscape Maintenance Internship: Signed Jasper Chong Work Phone: Start: 12-20-2018 End: 12-20-2018 Chest without Contrast Comments: See Note; NOTES: [facility] Imaging Services [address] [place] [address] Chest without Contrast MR#: [id number] Acct: [id number] Name: SHIRA OROZCO Rep #: [id number] : 1955 F 63 From: Brandt Barbour MD PCP: Jasper Chong MD Status: REG CLI Study: Chest without Contrast Date of Exam: 12/20/18 Exam# [id number] Ordering Dr: Jasper Chong MD STUDY: CT CHEST WITHOUT CONTRAST REASON FOR EXAM: Female, 63 years old. Follow-up nodule RADIATION DOSAGE (If Supplied By Facility): CTDIvol = ( 8.91 ) mGy, DLP = ( 320.74 ) mGycm TECHNIQUE: Transaxial imaging was performed without the administration of intravenous contrast material. Individualized dose optimization techniques were used for this CT. COMPARISON: Previous study of July 27, 2018 FINDINGS: There is a stable 4 mm nodule of the right middle lobe image 68 series 4. No new or additional nodules are evident. There is no demonstrated pleural abnormality. Normal heart and pericardium. Normal mediastinum. Normal hilar regions. Normal unenhanced pulmonary arteries. Normal aorta arch and descending thoracic aorta. There is mild diffuse endplate spondylosis of the thoracic vertebrae. There is no demonstrated abnormality of the visualized upper abdomen. CT/Chest without Contrast IMPRESSION: Stable 4 mm nodule of the right middle lobe. Appropriate follow-up using Fleischner Society criteria is recommended. Mild diffuse endplate spondylosis of the thoracic spine. Electronically Signed: Brandt Barbour MD at 20:16 EDT , Service support , CC: Jasper Chong MD Landscape Maintenance Internship: Signed Jasper Chong Work Phone: Start: 07-28-2018 End: 07-28-2018 Dexa Bone Density Study Comments: See Note; NOTES: [facility] Imaging Services [address] [place] [address] Dexa Bone Density Study MR#: [id number] Acct: [id number] Name: SHIRA OROZCO Rep #: [id number] : 1955 F 62 From: Raman Peraza MD PCP: Jasper Chong MD Status: REG CLI Study: Dexa Bone Density Study Date of Exam: 07/28/18 Exam# [id number] Ordering Dr: Jasper Chong MD STUDY: DUAL ENERGY X-RAY ABSORPTIOMETRY / DXA REASON FOR EXAM: Female, 62 years old. The patient is postmenopausal. No loss of height. TECHNIQUE: Bone Mineral Density (BMD) measurements of lumbar spine and bilateral hips were obtained. COMPARISON: Comparison is made with prior study dated January 31, 2014. FINDINGS: Lumbar Spine (L1-L4): g/cm2 (1.081) / T-score (-0.8) / Z-score (0.7) Findings are suggestive of normal bone density with a low fracture risk. Left Femur Total: g/cm2 (0.925) / T-score (-0.7) / Z-score (0.5) Left Femoral Neck: g/cm2 (0.794) / T-score (-1.8) / Z-score (-0.3) Right Femur Total: g/cm2 (0.924) / T-score (-0.7) / Z-score (0.5) Right Femoral Neck: g/cm2 (0.868) / T-score (-1.2) / Z-score (0.2) The T-Scores on the most recent prior examination were: Lumbar Spine (L1-L4): There has been worsening of bone density since the previous examination. Left Femur Total: which represents a worsening of 2.3%. Right Femur Total: which represents a worsening of 2.0%. BD/Dexa Bone Density Study IMPRESSION: The patient is considered osteopenic as outlined below according to World Cresencio Organization (WHO) criteria with a moderate fracture risk. There has been worsening of bone density since the previous examination. Reference Information: The T-score is the number of standard deviations above or below the standard which is normal for young adults at their peak bone mineral density. The World Health Organization (WHO) interprets the T-scores as follows: Above -1 Normal bone density Between -1 and -2.5 Osteopenia Equal to / or below -2.5 Osteoporosis As a practical clinical guideline, osteopenia may be graded as follows: Mild -1 through -1.5 Moderate -1.6 through -2.0 Severe -2.1 through -2.4 The Z-score is the number of standard deviations above or below age-matched controls. A Z-score of less than -1.5 would be considered abnormal. References: 1. NIH Osteoporosis and Related Bone Diseases http://www.osteo.org 2. International Society for Clinical Densitometry http://www.iscd.org 3. National Osteoporosis Foundation http://www.nof.org Electronically Signed: Raman Peraza MD at 15:53 EST , Service support , CC: Jasper Chong MD Landscape Maintenance Internship: Signed Jasper Chong Work Phone: Start: 07-27-2018 End: 07-28-[address] w/CCTA Comments: See Note; NOTES: [facility] Imaging Services [address] [place] [address] w/CCTA MR#: [id number] Acct: [id number] Name: SHIRA OROZCO Rep #: [id number] : 1955 F 62 From: John Duggan MD PCP: Jasper Chong MD Status: REG CLI Study: Limited Chest CT w/CCTA Date of Exam: 07/27/18 Exam# [id number] Ordering Dr: Jasper Chong MD HISTORY: Hyperlipidemia. CT chest over-read only for calcium scoring. Exam: Limited CT chest without contrast for coronary artery calcium scoring. TECHNIQUE: Helically acquired images were obtained of the chest and processed for coronary artery calcium scoring. IV Contrast dosage and agent: None. Oral contrast: None. COMPARISON: Chest x-ray 07/26/2014 Findings: Coronary artery calcium scores as follows: Left main: 0 Left anterior descendin Left circumflex: 0 Right coronary artery: 0 Total calcium score: 0 Limited visualization of the lung parenchyma. On image #24, right middle lobe 5 x 3 mm circumscribed nodule which is probably benign and appears noncalcified. Normal heart size. No pericardial effusion. Numerous small calcifications within both breasts in keeping with adenosis. CT/Limited Chest CT w/CCTA IMPRESSION: 1. CT calcium score of 0. 2. Right middle lobe 5 mm nodule which is probably benign and too small to further characterize by PET scan. 3. Recommend reevaluation with follow-up CT chest without contrast in 6 months to assure stability. Individualized dose optimization techniques were used for this CT. at 0547 Reported and signed by: John Duggan MD Electronically Signed: John Duggan, at 5:46 EST Tel , Service support , CC: Jasper Chong MD [employer] Internship: Signed Jasper Chong Work Phone: Start: 04-29-2018 End: 04-29-2018 Urgent Care Visit Report Comments: See Note; NOTES: [facility] [address] [place], [place] [id number] OFFICE VISIT Date of Service: 04/29/18 MR#: [id number] Acct: [id number] Name: SHIRA OROZCO Rep #: [id number] : 1955 Provider: [place]io SYLVESTER Age/Sex: 62/F Location: [facility] Status: Signed Intake Vital Signs04/29/18 Height 5 ft 6.5 in Intake Visit Reasons: earache Allergies No Known Allergies Allergy (Unverified 04/29/18 15:28) Medications amoxicillin 875 mg-potassium clavulanate 125 mg tablet 1 tab PO Q12H 10 Days #20 tab 04/29/18 [Rx] ascorbate calcium 500 mg tablet 500 mg PO DAILY 04/29/18 [History Confirmed 04/29/18] cholecalciferol (vitamin D3) 1,000 unit capsule 1,000 unit PO DAILY 04/29/18 [History Confirmed 04/29/18] levothyroxine 88 mcg tablet PO 30 Days #36 tab 04/29/18 [History Confirmed 04/29/18] rosuvastatin 5 mg tablet PO 28 Days #12 tab 04/29/18 [History Confirmed 04/29/18] PFSH Surgical History H/O tubal ligation (Acute) History of foot surgery (Acute) Social History Smoking Status: Never smoker alcohol intake: current Alcohol type: wine HPI HPI Details: SHIRA OROZCO, is a 62 F who presents to the office today for complaint of earache and nasal drainage for the past 2 days. Patient states that just prior to air travel from [place] she started to have nasal drainage and then over the past day following her air travel has had bilateral ear pain. She denies any otorrhea or hearing change/loss. No fever, chills, sweats. No other associated symptoms or alleviating/aggravating factors. ROS Const Constitutional: No chills, fever(s), fatigue or abnormal sleep pattern ENT ENT: Positive for ear pain, nasal congestion and nasal discharge; no ear discharge, ear pressure or sore throat Resp Respiratory: No shortness of breath or chest congestion Cardio Cardiology: No chest pain at rest, chest pain with exertion or shortness of breath Skin Skin: No wounds or lesions Neuro Neurology: No behavioral changes or confusion Psych Psychiatric: No behavioral changes, No confusion, No abnormal sleep pattern Endo Endocrine: No fatigue Exam Const General: cooperative, healthy appearing HENCA Head: normocephalic, atraumatic Ears: hearing grossly normal bilaterally, EAC's normal, TM abnormal bulging on the left and erythematous on the left Nose: external nose normal Face and sinus: face symmetric, normal facial exam Mouth: oral mucosae normal Throat: posterior oropharynx normal Eyes General: appearance normal, both eyes and all related structures Pupils: PERRL Resp Effort AND Inspection: normal respiratory effort Auscultation: Bilateral: Clear to Auscultation Cardio Palpation: normal PMI Rate: regular rate Rhythm: regular rhythm Skin General: no rashes or lesions noted Neuro General: alert, CN's II-XI intact bilaterally Psych Appearance: grossly normal Mental Status: mental status grossly normal Assessment AND Plan Problems 1. Other acute nonsuppurative otitis media of left ear, recurrence not specified H65.192 Plan Augmentin as prescribed today. Encouraged to get plenty of rest, drink lots of clear liquids, and use Tylenol or Ibuprofen (unless contraindicated) for fever and comfort. Patient also educated on other symptomatic management techniques. To be seen in 7-10 days if no improvement; sooner if worsening of symptoms. Patient advised of potential red flags and when appropriate report to the ED. Patient verbalized understanding and agreement with all the above. Medications New: amoxicillin-pot clavulanate 875-125 mg (Augmentin1 tab PO Q12H 10 days 20 tabs 0RF H66.90 ) Coding Level of Care Code Off vis,new,level 3 Diagnoses Other acute nonsuppurative otitis media of left ear, recurrence not specified H65.192 Chronicity: acute Laterality: left Otitis media type: other nonsuppurative Recurrence: not specified as recurrent 04/29/18 1633 <Electronically signed by Indio SYLVESTER> Date Indio SYLVESTER Cosigner Signature: Date (if applicable) CC: Jasper Chong Start: 01-14-2018 End: 01-14-2018 SCREENING MAMM (CAD), BILAT Comments: See Note; NOTES: [facility] Imaging Services [address] [place] [address] SCREENING MAMM (CAD), BILAT MR#: [id number] Acct: [id number] Name: SHIRA OROZCO Rep #: [id number] : 1955 F 62 From: Ramesh Portillo MD PCP: Jasper Chong MD Status: REG CLI Study: SCREENING MAMM (CAD), BILAT Date of Exam: 01/14/18 Exam# [id number] Ordering Dr: Jasper Chong MD MAMMOGRAPHY - BILATERAL SCREENING 3-D MALVIN SYNTHESIS REASON FOR EXAM: Female, 62 years old. Bilateral Screening 3-D tomosynthesis PERTINENT HISTORY: Aunt with breast cancer.. TECHNIQUE: 2-D mammograms and 3-D Malvin synthesis of the breast (s) were performed. CAD was performed. COMPARISON: 01/11/2017 FINDINGS: The breast composition is heterogeneously dense that can obscure small breast masses. Scattered benign calcifications are seen. No dense spiculated masses or suspicious microcalcifications are identified. No architectural distortion is identified. There is no skin thickening or retraction. There has been no significant change since the prior study. BI/SCREENING MAMM (CAD), BILAT IMPRESSION: No mammographic signs of malignancy. Routine yearly mammograms recommended. ASSESSMENT CATEGORY: BIRADS Category 2: Benign. A letter regarding these results will be sent to the patient by the facility within 30 days. FOLLOW UP RECOMMENDATION: Yearly follow up mammogram recommended. (A) Approximately 10% of breast cancers are not detected by mammography. A normal mammogram should not delay biopsy of a clinically suspicious abnormality. Electronically Signed: Boyd Portillo MD at 8:42 EDT , Service support , CC: Jasper Chong MD [employer]: Signed Jasper Chong Work Phone: Start: 02-26-2017 End: 02-27-2017 Hepatobilliary Img w/Pharm Int Comments: See Note; NOTES: [facility] Imaging Services [address] [place] [id number] Hepatobilliary Img w/Pharm Int MR#: [id number] Acct: [id number] Name: SHIRA OROCZO Rep #: [id number] : 1955 F 61 From: Med Cross DO PCP: Jasper Chong MD Status: REG CLI Study: Hepatobilliary Img w/Pharm Int Date of Exam: 02/26/17 Exam# [id number] Ordering Dr: Jasper Chong MD CLINICAL: 61-year-old female with reported history of abdominal pain. RADIONUCLIDE HEPATOBILIARY SCINTIGRAPHY COMPARISON: Abdominal ultrasound report 02/19/2017 FINDINGS: Following the intravenous administration of 5.4 mCi of 99m Tc Mebrofenin, hepatobiliary images reveal: 1. Relatively prompt and homogeneous radiopharmaceutical concentration is noted by a normal sized liver. No parenchymal defects are identified. 2. Gallbladder activity is identified at 10 minutes post radiopharmaceutical administration. 3. Small intestinal tract is observed at 15 minutes post radiopharmaceutical administration. 4. Washout of the radiopharmaceutical by the hepatic parenchyma appears qualitatively normal. Cholecystokinin (0.02 ug/kg) was administered intravenously over a 30-minute period. The post CCK gallbladder ejection fraction calculated at 20 minutes following Cholecystokinin administration was noted to be 84.0 % (normal greater than 35%). During 30 minutes of post CCK imaging, there is no scintigraphic evidence of reflux of the radiotracer into the common hepatic duct or refilling of the gallbladder. NM/Hepatobilliary Img w/Pharm Int IMPRESSION: 1. NORMAL 99m Tc Mebrofenin hepatobiliary imaging survey with Cholecystokinin. A. A gallbladder ejection fraction calculated to be greater than 35% following the administration of Cholecystokinin makes the probability of functional hepatobiliary disease (gallbladder and/or sphincter of Oddi dyskinesia) and/or organic hepatobiliary disease (chronic acalculous cholecystitis and/or cystic duct syndrome) to be low. (Osvaldo Sal et al, Journal of Nuclear Medicine 32:1695, 1990). Electronically Signed: Med Cross DO at 13:30 EDT Tel , Service support , CC: aJsper Chong MD [employer]ship: Signed Jasper Chong Work Phone: Start: 02-19-2017 End: 02-19-2017 Abdomen Limited Comments: See Note; NOTES: [facility] Imaging Services [address] [place] [id number] Abdomen Limited MR#: [id number] Acct: [id number] Name: SHIRA OROZCO Rep #: [id number] : 1955 F 61 From: Raman Peraza MD PCP: Jasper Chong MD Status: REG CLI Study: Abdomen Limited Date of Exam: 02/19/17 Exam# [id number] Ordering Dr: Jasper Chong MD STUDY: ABDOMINAL ULTRASOUND - RIGHT UPPER QUADRANT REASON FOR VISIT: Female, 61 years old. Abdominal pain. TECHNIQUE: Ultrasound evaluation of the right upper quadrant was performed with real-time and static martinez-scale imaging. TECHNICAL QUALITY: Adequate. COMPARISON: None. FINDINGS: Liver: The liver measures 12.3 cm. There is normal echogenicity of the liver. The bile ducts are within normal limits. There is hepatic color flow. The direction of portal flow is hepatopetal. There is no demonstrated mass lesion. Gallbladder: Normal distended gallbladder. The gallbladder wall measures 2.0 mm. There is a negative sonographic Roy's sign. There is no pericholecystic fluid. There are no gallstones. Common Bile Duct (C.B.D.): The common bile duct measures 2.0 mm. Pancreas: Normal size of the head, body and tail of the pancreas. There is normal echogenicity of the pancreas. There is no demonstrated pancreatic mass or cyst. Right Kidney: Normal size of the right kidney. The right kidney measures 10.2 cm x 4.0 cm x 3.3 cm. Normal renal cortex. The right cortex measures 1.2 cm. There is no demonstrated renal mass or cyst. Fullness of the right renal pelvis. US/Abdomen Limited IMPRESSION: Normal right upper quadrant ultrasound examination. Fullness of the right renal pelvis. Electronically Signed: Raman Peraza MD at 15:29 EDT Tel [phone], Service support , CC: Jasper Chong MD [employer]ship: Signed Jasper Chong Work Phone: Start: 01-11-2017 End: 01-11-2017 SCREENING MAMM (CAD), BILAT Comments: See Note; NOTES: [facility] Imaging Services [address] [place] [address] Verdana 4d SCREENING MAMM (CAD), BILAT MR#: [id number] Acct: [id number] Name: SHIRA OROZCO Rep #: [id number] : 1955 F 61 From: Raman Peraza MD PCP: Jasper Chong MD Status: REG CLI Study: SCREENING MAMM (CAD), BILAT Date of Exam: 01/11/17 Exam# [id number] Ordering Dr: Jasper Chong MD MAMMOGRAPHY - BILATERAL SCREENING REASON FOR EXAM: Female, 61 years old. Routine annual screening examination. PERTINENT HISTORY: Aunt with breast cancer. TECHNIQUE: Digital bilateral breast malvin (3D mammographic acquisition) in the CC and MLO projections. 2-D mediolateral oblique (MLO) and craniocaudad (CC) views of both breasts were obtained. CAD: Full Field Digital Mammography with Computer Added Detection was performed. COMPARISON: Comparison is made with prior study dated January 10, 2016 and January 07, 2015. FINDINGS: Breast Composition: The breasts are heterogeneously dense, which may obscure small masses. There are no dominant masses or suspicious calcifications. No other significant abnormalities are identified. There has been no significant change since the prior study. HPBI/SCREENING MAMM (CAD), BILAT IMPRESSION: Stable bilateral screening mammogram. Yearly follow-up mammogram recommended. (A) ASSESSMENT CATEGORY: BIRADS Category 1: Negative. A letter regarding these results will be sent to the patient by the facility within 30 days. Approximately 10% of breast cancers are not detected by mammography. A normal mammogram should not delay biopsy of a clinically suspicious abnormality. [id number] Electronically Signed: Raman Peraza MD at 10:26 EDT Tel [phone], Service support , CC: Jasper Chong MD [employer]ship: Signed Jasper Chong Work Phone: Start: 06-23-2016 End: 06-30-2016 Dexa Bone Density Study (HP) Comments: See Note; NOTES: [facility] Imaging Services [address] [place] [address] Verdana 4d Dexa Bone Density Study (HP) MR#: [id number] Acct: [id number] Name: SHIRA OROZCO Rep #: [id number] : 1955 F 60 From: Raman Peraza MD PCP: Jasper Chong MD Status: REG CLI Study: Dexa Bone Density Study (HP) Date of Exam: 06/23/16 Exam# [id number] Ordering Dr: Jasper Chong MD STUDY: DUAL ENERGY X-RAY ABSORPTIOMETRY / DXA REASON FOR EXAM: Female, 60 years old. The patient is postmenopausal. Loss of height. TECHNIQUE: Bone Mineral Density (BMD) measurements of lumbar spine and bilateral hips were obtained. COMPARISON: Comparison is made with prior study dated January 31, 2014. FINDINGS: Lumbar Spine (L1-L4): g/cm2 (1.053) / T-score (-1.0) / Z-score (0.4) Findings are suggestive of normal bone density with a low fracture risk. Left Femur Total: g/cm2 (0.947) / T-score (-0.5) / Z-score (0.6) Left Femoral Neck: g/cm2 (0.821) / T-score (-1.6) / Z-score (by 0.2) Right Femur Total: g/cm2 (0.943) / T-score (-0.5) / Z-score (0.5) Right Femoral Neck: g/cm2 (0.909) / T-score (0.9) / Z-score (0.4) The T-Scores on the most recent prior examination were: Lumbar Spine (L1-L4): There has been worsening of bone density since the previous examination. Left Femur Total: which represents no significant change. . Right Femur Total: which represents a worsening of 2.0%. HPBD/Dexa Bone Density Study (HP) IMPRESSION: The patient is considered osteopenic at the level of the left femoral neck as outlined below according to World Cresenc[employer] Organization (WHO) criteria with a moderate fracture risk. There has been worsening of bone density since the previous examination. Reference Information: The T-score is the number of standard deviations above or below the standard which is normal for young adults at their peak bone mineral density. The World Health Organization (WHO) interprets the T-scores as follows: Above -1 Normal bone density Between -1 and -2.5 Osteopenia Equal to / or below -2.5 Osteoporosis As a practical clinical guideline, osteopenia may be graded as follows: Mild -1 through -1.5 Moderate -1.6 through -2.0 Severe -2.1 through -2.4 The Z-score is the number of standard deviations above or below age-matched controls. A Z-score of less than -1.5 would be considered abnormal. References: 1. NIH Osteoporosis and Related Bone Diseases http://www.osteo.org 2. International Society for Clinical Densitometry http://www.iscd.org 3. National Osteoporosis Foundation http://www.nof.org Electronically Signed: Raman Peraza MD at 10:54 EST Tel [phone], Service support [phone], CC: Jasper Chong MD Land[employer] Internship: Signed Jasper Chong Work Phone: Start: 06-23-2016 End: 06-23-2016 Kidney and Bladder Comments: See Note; NOTES: [facility] Imaging Services [address] [place] [address] Verdana 4d Kidney and Bladder MR#: [id number] Acct: [id number] Name: SHIRA OROZCO Rep #: [id number] : 1955 F 60 From: Marcello Rosas MD PCP: Jasper Chong MD Status: REG CLI Study: Kidney and Bladder Date of Exam: 06/23/16 Exam# [id number] Ordering Dr: Jasper Chong MD STUDY: RENAL ULTRASOUND - COMPLETE REASON FOR EXAM: Female, 60 years old. Hematuria. TECHNIQUE: Ultrasound evaluation of the kidneys was performed with real-time and static treviño-scale imaging. COMPARISON: May 12, 2010. FINDINGS: RIGHT KIDNEY: Normal location of the right kidney, which is normal in size. The right kidney measures 10.3 cm. There is a normal cortex of the right kidney. The renal cortex measures 1.5 cm. There is no right renal mass or cyst. There are no right renal calculi. There is no right hydronephrosis. DISTAL RIGHT URETER: There is non-visualization of the distal right ureter. There is no demonstrated right ureterovesical junction calculus. There is a visualized right ureteral jet. LEFT KIDNEY: Normal location of the left kidney, which is normal in size. The left kidney measures 10.9 cm. There is a normal cortex of the left kidney. The renal cortex measures 1.8 cm. There is no left renal mass or cyst. There are no left renal calculi. There is no left hydronephrosis. DISTAL LEFT URETER: There is non-visualization of the distal left ureter. There is no demonstrated left ureterovesical junction calculus. There is a visualized left ureteral jet. BLADDER: The distended urinary bladder has a volume of 300 ml. The empty urinary bladder has a volume of 18 ml. There is a normal wall thickness of the distended urinary bladder. There is no demonstrated mass within the urinary bladder. There are no demonstrated bladder calculi. US/Kidney and Bladder IMPRESSION: Normal ultrasound of the kidneys and urinary bladder. Electronically Signed: Marcello Rosas MD at 14:56 EST , Service support [phone], CC: Jasper Chong MD [employer] Internship: Signed Jasper Chong Work Phone: Start: 01-10-2016 End: 01-10-2016 Bilat Scrn Digital AND CAD Comments: See Note; NOTES: [facility] Imaging Services [address] [place] [address] Verdana 4d Bilat Scrn Digital AND CAD MR#: [id number] Acct: [id number] Name: SHIRA OROZCO Rep #: [id number] : 1955 F 60 From: Raman Peraza MD PCP: Jasper Chong MD Status: REG CLI Study: Bilat Scrn Digital AND CAD Date of Exam: 01/10/16 Exam# [id number] Ordering Dr: Jasper Chong MD MAMMOGRAPHY - BILATERAL SCREENING REASON FOR EXAM: Female, 60 years old. Routine annual screening examination. PERTINENT HISTORY: Aunt with breast cancer. TECHNIQUE: Digital bilateral breast malvin (3D mammographic acquisition) in the CC and MLO projections. 2-D mediolateral oblique (MLO) and craniocaudad (CC) views of both breasts were obtained. CAD: Full Field Digital Mammography with Computer Added Detection was performed. COMPARISON: Comparison is made with prior study dated January 07, 2015 and January 04, 2014. FINDINGS: Breast Composition: The breasts are heterogeneously dense, which may obscure small masses. There are no dominant masses or suspicious calcifications. Scattered bilateral benign appearing calcifications. These are unchanged. No other significant abnormalities are identified. There has been no significant change since the prior study. IMPRESSION: Stable bilateral screening mammogram. Yearly follow-up mammogram recommended. (A) ASSESSMENT CATEGORY: BIRADS Category 2: Benign. A letter regarding these results will be sent to the patient by the facility within 30 days. Approximately 10% of breast cancers are not detected by mammography. A normal mammogram should not delay biopsy of a clinically suspicious abnormality. [id number] Electronically Signed: Raman Peraza MD at 9:33 EDT Tel [phone], Service support [phone], CC: Jasper Chong MD [employer] Internship: Signed Jasper Chong Work Phone: Start: 01-07-2015 End: 01-07-2015 Bilat Scrn Digital AND CAD Comments: See Note; NOTES: [facility] Imaging Services [address] [place] [address] Breast Imaging Report MR#: [id number] Acct: [id number] Name: SHIRA OROZCO Rep #: [id number] : 1955 F 59 From: Howard Jones DO PCP: Jasper Chong MD Status: REG CLI Study: Bilat Scrn Digital AND CAD Date of Exam: 01/07/15 Exam# [id number] Ordering Dr: Jasper Chong MD MAMMOGRAPHY - BILATERAL SCREENING REASON FOR EXAM: Female, 59 years old. Routine annual screening examination. PERTINENT HISTORY: Breast cancer in 2 maternal aunts in their 70s. Personal history of left breast aspiration. TECHNIQUE: Digital examination. Mediolateral oblique (MLO) and craniocaudad (CC) views of both breasts were obtained. CAD: CAD was performed on this study. COMPARISON: January 04, 2014 and December 28, 2012. FINDINGS: Breast Composition: The breasts are heterogeneously dense, which may obscure small masses. Again seen are diffuse bilateral calcifications which appear unchanged from prior study. No other significant abnormalities are identified. IMPRESSION: Stable bilateral screening mammogram. Yearly follow-up recommended. (A) ASSESSMENT CATEGORY: BIRADS Category 2: Benign. A letter regarding these results will be sent to the patient by the facility within 30 days. According to The [employer], yearly mammograms are recommended starting at age 40 and continuing as long as a woman is in good health. Clinical Breast Exams should be part of a periodic health exam - about every 3 years for women in their 20s and 30s and every year for women 40 and over. Breast self exam is an option for women starting in their 20s. Any breast change noted on a breast self exam should be report promptly to the patient's healthcare provider. A negative Mammography report should not discourage follow up or biopsy of a clinically significant finding and/or abnormality. Dense breast tissue may obscure small neoplasms. Electronically Signed: Howard Jones DO at 11:44 EDT Tel [phone], Service support [phone], CC: Jasper Chong MD [employer] Internship: Signed Jasper Chong Work Phone: Start: 07-26-2014 End: 07-26-2014 Chest PA and Lateral Comments: See Note; NOTES: [facility] Imaging Services [address] [place] [id number] Radiology Report MR#: [id number] Acct: [id number] Name: SHIRA OROZCO Rep #: [id number] : 1955 F 58 From: Yaakov Etienne MD PCP: Jasper Chong MD Status: REG CLI Study: Chest PA and Lateral Date of Exam: 07/26/14 Exam# [id number] Ordering Dr: Jasper Chong MD STUDY: X-RAY CHEST REASON FOR EXAM: Female, 58 years old. Syncope TECHNIQUE: Frontal and lateral views of the chest. COMPARISON: 03/31/10 FINDINGS: The lungs are clear and expanded. There is no demonstrated pleural abnormality. Normal size heart. Normal mediastinum and jose. Normal visualized pulmonary arteries. Normal visualized aortic arch and descending thoracic aorta. Normal visualized thoracic spine. Normal visualized ribs, clavicles, and shoulders. There is no demonstrated abnormality of the visualized soft tissue structures of the upper abdomen. IMPRESSION: Normal x-ray examination of the chest. Electronically Signed: Yaakov Etienne MD at 20:48 EST Tel , Service support [phone], CC: Jasper Chong MD [employer] Internship: Signed Jasper Chong Work Phone: Start: 07-24-2014 End: 07-24-2014 Echocardiogram Complete Comments: See Note; NOTES: [facility] Cardiovascular Services [address] [place] [address] Echo Complete 07/24/14 1301 MR#: [id number] Acct: [id number] Name: SHIRA OROZCO Rep #: [id number] : 1955 58 From: Ned Guardado MD Attending Dr: Catarina Treviño Status: REG CLI Ordering Dr: Catarina Treviño Date: 07/24/14 Location: [facility] Sex: F C Admitted: Procedure This was a 2D Doppler, Color Flow transthoracic echocardiogram. Exam performed in department. Left Ventricle Normal LV size. Left ventricular systolic function is normal. The estimated ejection fraction is 55 %. No regional wall motion abnormalities noted. Right Ventricle Normal RV size. Normal systolic function. Atria Normal left atrium. Normal right atrium. Mitral Valve Normal mitral valve. Tricuspid Valve Normal tricuspid valve. Mild (1+) tricuspid valve insufficiency. Aortic Valve Normal aortic valve. Pulmonic Valve Normal pulmonic valve. Great Vessels Normal aortic root. The pulmonary artery is normal size. Normal inferior vena cava. Pericardium/Pleural No pericardial effusion. MMode/2D Measurements AND Calculations LVIDd: 4.4 cm IVSd: 1.0 cm Ao root diam: 2.6 cm LAV(MOD-bp): 27.9 ml LVIDs: 2.7 cm LVPWd: 0.79 cm Ao root area: 5.3 cm2 LAV(MOD-bp) Indexed: 15.9 ml/m2 RVDd: 3.4 cm FS: 38.0 % LA dimension: 3.0 cm LAV(MOD-sp2): 26.4 ml LAV(MOD-sp4): 28.3 ml LA A4 area: 13.1 cm2 RA A4 area: 13.2 cm2 Doppler Measurements AND Calculations MV E max randy: Lat Peak E' Randy: Med Peak E' Randy: Ao V2 max: 78.8 cm/sec 14.4 cm/sec 11.6 cm/sec 146.6 cm/sec MV A max randy: Ao max P.6 mmHg 67.1 cm/sec MV E/A: 1.2 LV V1 max: 130.8 cm/sec PA V2 max: 103.0 cm/sec TR max randy: 197.2 cm/sec E /E' lat: 5.5 LV V1 max P.8 mmHg PA max P.2 mmHg TR max P.6 mmHg E/E' med: 6.8 Interpretation Summary Normal LV size. Left ventricular systolic function is normal. The estimated ejection fraction is 55 %. Mild (1+) tricuspid valve insufficiency. Ordering Physician: Catarina Treviño Performed By: DONOVAN Herrmann 07/24/14 1550 Date Ned Guardado MD CC: Catarina Treviño; Jasper Chong MD Date Dictated: 07/24/14 1301 Date Transcribed: 07/24/14 1556 [employer] Internship: Signed Jasper Chong Start: 01-31-2014 End: 02-01-2014 Dexa Bone Density Study (HP) Comments: See Note; NOTES: [facility] Imaging Services [address] [place] [id number] Bone Density Report MR#: [id number] Acct: [id number] Name: SHIRA OROZCO Rep #: [id number] : 1955 F 58 From: Raman Peraza MD PCP: Jasper Chong MD Status: REG CL Study: Dexa Bone Density Study (HP) Date of Exam: 01/31/14 Exam# [id number] Ordering Dr: Jasper Chong MD STUDY: DUAL ENERGY X-RAY ABSORPTIOMETRY / DXA REASON FOR EXAM: Female, 58 years old. The patient is postmenopausal. TECHNIQUE: Bone Mineral Density (BMD) measurements of lumbar spine and bilateral hips were obtained. COMPARISON: None. FINDINGS: Lumbar Spine (L1-L4): g/cm2 (1.103) / T-score (-0.6) / Z-score (0.6) Findings are suggestive of normal bone density with a low fracture risk. Left Femur Total: g/cm2 (0.946) / T-score (-0.5) / Z-score (0.4) Left Femoral Neck: g/cm2 (0.809) / T-score (-1.6) / Z-score (-0.4) Right Femur Total: g/cm2 (0.962) / T-score (-0.4) / Z-score (0.6) Right Femoral Neck: g/cm2 (0.904) / T-score (-1.0) / Z-score (0.3) Right Forearm: g/cm2 ( ) / T-score ( ) / Z-score ( ) Left Forearm: g/cm2 ( ) / T-score ( ) / Z-score ( ) IMPRESSION: The patient is considered mildly osteopenic at the level of the femoral necks as outlined below according to World Cresencio Organization (WHO) criteria with a low fracture risk. Reference Information: The T-score is the number of standard deviations above or below the standard which is normal for young adults at their peak bone mineral density. The World Health Organization (WHO) interprets the T-scores as follows: Above -1 Normal bone density Between -1 and -2.5 Osteopenia Equal to / or below -2.5 Osteoporosis As a practical clinical guideline, osteopenia may be graded as follows: Mild -1 through -1.5 Moderate -1.6 through -2.0 Severe -2.1 through -2.4 The Z-score is the number of standard deviations above or below age-matched controls. A Z-score of less than -1.5 would be considered abnormal. References: 1. NIH Osteoporosis and Related Bone Diseases http://www.osteo.org 2. International Society for Clinical Densitometry http://www.iscd.org 3. National Osteoporosis Foundation http://www.nof.org Electronically Signed: Raman Peraza MD at 10:38 EDT Tel [phone], Service support [phone], CC: Jasper Chong MD [employer]: Signed Jasper Chong Work Phone: Start: 01-04-2014 End: 01-04-2014 Bilat Scrn Digital & CAD Comments: See Note; NOTES: [facility] Imaging Services [address] [place] [address] Breast Imaging Report MR#: [id number] Acct: [id number] Name: SHIRA OROZCO Rep #: [id number] : 1955 F 58 From: Ramesh Portillo MD PCP: Jasper Chong MD Status: REG CLI Exam# [id number] Ordering Dr: Jasper Chong MD MAMMOGRAPHY - BILATERAL SCREENING REASON FOR EXAM: Female, 58 years old. Routine annual screening examination. PERTINENT HISTORY: Non-contributory. TECHNIQUE: Digital examination. Mediolateral oblique (MLO) and craniocaudad (CC) views of both breasts were obtained. CAD: CAD was performed on this study. COMPARISON: 12/28/12 FINDINGS: The breast composition is composed of scattered areas of fibroglandular densities ranging from 25% to 50% of the total breast volume. There are no dominant masses or suspicious calcifications. Stable scattered lucent centered calcifications No other significant abnormalities are identified. There has been no significant change since the prior study. IMPRESSION: Stable bilateral screening mammogram. Yearly follow-up recommended. (A) ASSESSMENT CATEGORY: BIRADS Category 2: Benign finding(s). A letter regarding these results will be sent to the patient by the facility within 30 days. BR2 Approximately 10% of breast cancers are not detected by mammography. A normal mammogram should not delay biopsy of a clinically suspicious abnormality. Electronically Signed: Boyd Portillo MD at 10:44 EDT , Service support [phone], CC: Jasper Chong MD [employer] Internship: Signed Jasper Chong Work Phone: Knee joint operation DR CAILIN PATEL MD Comment on above: RIGHT MENISECTOMY Ligation of fallopia n tube DR ANTONELLA PATEL MD right foot surgery t o clean up arthritis 2010 EULALIA Alfredo right foot surgery t o clean up arthritis 2010 EULALIA Alfredo right foot surgery t o clean up arthritis 2010 EULALIA Alfredo right foot surgery t o clean up arthritis 2010 EULALIA Alfredo right foot surgery t o clean up arthritis 2010 Jazmin Manchak right foot surgery t o clean up arthritis 2010 Genet L Long skin 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 basal cell EULALIA Alfredo skin 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 basal cell EULALIA Alfredo skin 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 basal cell EULALIA Alfredo skin 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 basal cell EULALIA Alfredo skin 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 basal cell Jazmin Manchak skin 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 basal cell Genet L Long tubal ligation 1982 EULALIA R ussell tubal ligation 1981 EULALIA R ussell tubal ligation 1981 EULALIA R ussell tubal ligation 1981 EULALIA R ussell tubal ligation 1981 Jazmin Manchak tubal ligation 1982 Genet L Long Jazmin Manchak FIRE PREVENTION RESEARCH ENGINEER Jasper Chong MD Work Phone: Maria Elena Slarb LP N Jazmin Manchak FIRE PREVENTION RESEARCH ENGINEER Jazmin Manchak FIRE PREVENTION RESEARCH ENGINEER Joana Andrés L PN Maria Elena Slarb [facility] N Joana Andrés L PN Joana Andrés L PN Plan of Treatment Date Care Activity Detail Author Start: 03-15-2023 Procedure Education [facility] Work Phone: Start: 03-15-2023 25 hydroxy includes fractions if performed [facility]; [facility] Work Phone: Start: 03-15-2023 Comprehensive metabo lic panel [facility]; [facility] Work Phone: Start: 03-15-2023 Lipid panel [facility]; [facility] Work Phone: Start: 03-15-2023 Assay of thyroid stimulating hormone tsh [facility]; [facility] Work Phone: Start: 12-17-2022 Procedure Education [facility]; [facility] Work Phone: Start: 12-17-2022 Provider Instruction s for Treatment [facility]; [facility] Work Phone: Start: 12-17-2022 Lipid panel [facility]; [facility] Work Phone: Start: 12-17-2022 Hepatic function panel [facility]; [facility] Work Phone: Start: 12-07-2022 Procedure Education [facility]; [facility] Work Phone: Start: 08-18-2022 Procedure Education [facility]; [facility] Work Phone: Start: 06-05-2022 Procedure Education [facility]; [facility] Work Phone: Start: 05-22-2022 Procedure Education [facility]; [facility] Work Phone: Start: 01-09-2022 Procedure Education [facility]; [facility] Work Phone: Start: 01-09-2022 Provider Instruction s for Treatment [facility]; [facility] Work Phone: Start: 09-04-2021 Procedure Education [facility]; [facility] Work Phone: Start: 09-04-2021 Comprehensive metabo lic panel [facility]; [facility] Work Phone: Start: 09-04-2021 Lipid panel [facility]; [facility] Work Phone: Start: 06-23-2021 Sars-cov-2 antibody SARS-CoV-2 Semi-Quantitative Total Antibody, Pj (57624) [facility]; [facility] Work Phone: Start: 06-23-2021 Urinalysis qual/semiquant except immunoassays URINALYSIS (71240) [facility]; [facility] Work Phone: Start: 06-23-2021 Blood count manual c ell count each CBC WITH MANUAL DIFF (49824) [facility]; [facility] Work Phone: Start: 06-23-2021 Comprehensive metabo lic panel Metabolic Panel, Comprehensive (44965) [facility]; [facility] Work Phone: Start: 06-23-2021 Lipoprotein blood qu an numbers & subclasses NMR Profile (01665) [facility]; [facility] Work Phone: Start: 12-30-2020 Assay of homocysteine Homocyst eine, Plasma (60483) [facility]; [facility] Work Phone: Start: 07-02-2020 Provider Instruction s for Treatment [facility]; [facility] Work Phone: Start: 07-02-2020 Hepatic function panel HEPATIC FUNCTION PANEL (75618) [facility]; [facility] Work Phone: Comment on above: Eulalia needs to dr geri davis Start: 07-02-2020 Lipid panel LIPID PANEL (21042) [facility]; [facility] Work Phone: Start: 05-23-2020 Comprehensive metabo lic panel Metabolic Panel, Comprehensive (04665) [facility] Work Phone: Start: 05-23-2020 Blood count manual c ell count each CBC WITH MANUAL DIFF (52344) [facility] Work Phone: Start: 05-23-2020 Urinalysis qual/semiquant except immunoassays URINALYSIS (30607) [facility] Work Phone: Start: 04-26-2020 Procedure Education [facility] Work Phone: Start: 04-25-2020 Iaadiadoo influenza 2019 Novel Coronavirus (COVID-19), MARIANA (81446) [facility] Work Phone: Start: 07-10-2019 Procedure Education [facility] Work Phone: Start: 07-10-2019 Comprehensive metabo lic panel METABOLIC PANEL, COMPREHENSIVE (77654) [facility] Work Phone: Start: 07-10-2019 Lipid panel LIPID PANEL (04994) [facility] Work Phone: Start: 07-10-2019 Assay of thyroid stimulating hormone tsh [facility]; [facility] Work Phone: Start: 07-10-2019 TSH Qn TSH (41093) [facility] Work Phone: Start: 07-14-2018 Basic metabolic pane l calcium total Metabolic Panel, Basic (69036) [facility] Work Phone: Comment on above: in 6 weeks Start: 07-14-2018 Hepatitis c antibody HEPATITIS C ANTIBODY (26973) [facility] Work Phone: Comment on above: in 6 weeks Start: 07-14-2018 Lipid panel LIPID PANEL (03195) [facility] Work Phone: Start: 07-14-2018 Comprehensive metabo lic panel METABOLIC PANEL, COMPREHENSIVE (10143) [facility] Work Phone: Start: 07-14-2018 Sodium molar conc SODIUM SERUM (8429 5) [facility] Work Phone: Start: 07-14-2018 Sodium serum plasma or whole blood [facility]; [facility] Work Phone: Start: 06-09-2018 Protein mass conc LIPOPROTEIN, BLD, BY NMR (47269) [facility] Work Phone: Start: 06-09-2018 Urinalysis qual/semiquant except immunoassays URINALYSIS (22013) [facility] Work Phone: Start: 06-09-2018 Comprehensive metabo lic panel Metabolic Panel, Comprehensive (46284) [facility] Work Phone: Start: 06-09-2018 Blood count manual c ell count each CBC WITH MANUAL DIFF (18532) [facility] Work Phone: Start: 06-18-2017 Comprehensive metabo lic panel [facility] Work Phone: Start: 06-18-2017 Lipid panel [facility] Work Phone: Start: 06-18-2017 Assay of thyroid stimulating hormone tsh [facility]; [facility] Work Phone: Start: 06-18-2017 Thyrotropin Qn TSH (12642) [facility] Work Phone: Start: 06-18-2017 Hepatitis c antibody Co [facility] Work Phone: Start: 12-17-2016 Procedure Education [facility] Work Phone: Start: 06-18-2016 Procedure Education [facility] Work Phone: Start: 12-02-2015 Procedure Education [facility] Work Phone: Start: 07-29-2015 Provider Instruction s for Treatment [facility] Work Phone: Start: 06-18-2015 Provider Instruction s for Treatment [facility] Work Phone: Start: 04-30-2015 Provider Instruction s for Treatment [facility] Work Phone: Start: 12-24-2014 Procedure Education [facility] Work Phone: Start: 10-30-2014 Provider Instruction s for Treatment [facility] Work Phone: Start: 07-31-2014 Patient Education [facility]pr [facility] Work Phone: Start: 07-31-2014 Provider Instruction s for Treatment [facility] Work Phone: Start: 07-23-2014 Provider Instruction s for Treatment [facility] Work Phone: Start: 07-23-[address] gtt 3 specimens [facility] Work Phone: Start: 07-09-2014 Patient Education [facility]pr [facility] Work Phone: Start: 07-09-2014 Procedure Education [facility] Work Phone: Start: 03-19-2014 Procedure Education [facility] Work Phone: Start: 03-19-2014 Provider Instruction s for Treatment [facility] Work Phone: Start: 01-15-2014 Patient Education [facility] Work Phone: Start: 01-15-2014 Procedure Education [facility] Work Phone: Start: 07-17-2013 Patient Education [facility]pr [facility] Work Phone: Start: 03-30-2013 Patient Education [facility]pr [facility] Work Phone: Start: 03-30-2013 Provider Instruction s for Treatment [facility] Work Phone: Start: 01-02-2013 Patient Education [facility]pr [facility] Work Phone: Start: 01-02-2013 Provider Instruction s for Treatment [facility] Work Phone: Start: 01-01-2012 Provider Instruction s for Treatment [facility] Work Phone: Start: 01-01-2012 Cytp cerv/vag auto t hin layer prep mnl screen [facility] Work Phone: Start: 12-10-2011 Lipid panel [facility] Work Phone: Start: 05-12-2011 Lipid panel [facility] Work Phone: Start: 05-12-2011 Assay of thyroid stimulating hormone tsh [facility]; [facility] Work Phone: Start: 05-12-2011 Thyrotropin Qn TSH (54439) [facility] Work Phone: Start: 10-30-2010 Provider Instruction s for Treatment [facility] Work Phone: Start: 10-30-2010 Cytp cerv/vag auto t hin layer prep mnl screen [facility] Work Phone: Start: 04-30-2010 Culture bacterial quanttative colony count urine [facility] Work Phone: Start: 04-08-2010 Urnls dip stick/tabl et reagent auto microscopy [facility] Work Phone: Start: 01-22-2010 Provider Instruction s for Treatment [facility] Work Phone: Start: 07-24-2009 Provider Instruction s for Treatment [facility] Work Phone: Start: 07-24-2009 Cytp cerv/vag auto t hin layer prep mnl screen [facility] Work Phone: Start: 07-24-2009 Assay of thyroid stimulating hormone tsh [facility]; [facility] Work Phone: Start: 07-24-2009 Thyrotropin Qn TSH (50062) [facility] Work Phone: Start: 01-29-2009 Assay of thyroid stimulating hormone tsh [facility]; [facility] Work Phone: Start: 01-29-2009 Thyrotropin Qn TSH (42554) [facility] Work Phone: Start: 07-12-2008 Provider Instruction s for Treatment [facility] Work Phone: Start: 07-12-2008 Assay of thyroid stimulating hormone tsh [facility]; [facility] Work Phone: Start: 07-12-2008 Thyrotropin Qn TSH (21075) [facility] Work Phone: Start: 07-12-2008 Lipid panel [facility] Work Phone: Start: 07-12-2008 Immunoassay tumor antigen quantitative [facility] Work Phone: Start: 07-12-2008 Cytp cerv/vag auto t hin layer prep mnl screen [facility] Work Phone: Start: 11-18-2007 Assay of thyroid stimulating hormone tsh [facility]; [facility] Work Phone: Start: 11-18-2007 Thyrotropin Qn TSH (01671) [facility] Work Phone: Start: 11-18-2007 Lipid panel [facility] Work Phone: Comment on above: 06-29 Start: 04-25-2007 Assay of thyroid stimulating hormone tsh [facility]; [facility] Work Phone: Start: 04-25-2007 Thyrotropin Qn TSH (95571) [facility] Work Phone: Start: 04-25-2007 Lipid panel [facility] Work Phone: Comment on above: in three months Start: 04-25-2007 Provider Instruction s for Treatment [facility] Work Phone: Start: 05-31-2006 Provider Instruction s for Treatment [facility] Work Phone: Start: 05-31-2006 HCG.beta subunit ( test) Ql (U) Urine Test, Office (25959) [facility] Work Phone: Start: 05-31-2006 Urine test visual color cmprsn meths [facility]; [facility] Work Phone: Start: 05-31-2006 Lipid panel [facility] Work Phone: Comment on above: 12-25 Start: 05-31-2006 Assay of thyroid stimulating hormone tsh [facility]; [facility] Work Phone: Comment on above: 12-25 Start: 05-31-2006 Thyrotropin Qn TSH (78163) [facility] Work Phone: Comment on above: 12-25 Start: 05-31-2006 Cytp cerv/vag auto t hin layer prep mnl screen [facility] Work Phone: [facility] Work Phone: [facility] Work Phone: [facility] Work Phone: [facility] Work Phone: [facility] Work [facility] Phone: [facility] Phone: [facility]: [facility] Phone: [facility]: [facility] Phone: [facility] Phone: [facility] Phone: [facility] Phone: [facility] Phone: [facility] Phone: [facility] Phone: [facility] Phone: [facility] Work Phone: [facility] Phone: [facility] Work Phone: [facility] Work Phone: [facility] Phone: [facility] Phone: [facility] Phone: [facility] Work Phone: [facility] Phone: [facility] Work Phone: [facility] Work Phone: [facility] Work Phone: [facility] Work Phone: [facility] Work Phone: [facility] Work Phone: [facility] Work Phone: [facility] Work Phone[facility] Work Phone: [facility] Work Phone: [facility] Work Phone: [facility] Work Phone: [facility] Work Phone: [facility] Work Phone: [facility] Work Phone: [facility] Work Phone: [facility] Work Phone: [facility] Work Phone: [facility] Work Phone: [facility] Work Phone: [facility]; [facility] Work Phone: [facility] Work Phone: Immunizations Immunization Date Immunization Notes Care Provider [facility] 04-01-2021 COVID-Pfizer (30 MCG/0.3 ML) Jasper Chong MD Work Phone: [facility]; [facility] Work Phone: 09-10-2020 COVID-19 (Pfizer) Jasper howe MD Work Phone: [facility]; [facility] Work Phone: 08-13-2020 COVID-19 (Pfizer) Jasper howe MD Work Phone: [facility]; [facility] Work Phone: 07-22-2019 pneumococcal polysaccharide vaccine, 23 valent Jasper Chong [facility] Work Phone: 03-21-2019 zoster vaccine, live Jasper Chong [facility] Work Phone: Comment on above: erin dia 12-24-2014 tetanus toxoid, redu geraldine diphtheria toxoid, and acellular pertussis vaccine, adsorbed Jasper Chong [facility] Work Phone: Comment on above: Site: Deltoid (Left) [facility] 01-02-2013 varicella zoster imm une globulin Jasper Hauserluh [facility] Work Phone: zoster vaccine, live Jasper Castillo [facility] Work Phone: Comment on above: [facility] Payers Date Payer Category Payer Self-pay [id number] 2021 Medicare [id number] 2016 Unknown [id number] 2014 Unknown [id number] 2014 Unknown [id number] 2002 Unknown [id number] 1955 Unknown [id number] 2.16.84 [id number] 1955 Unknown [id number] 2.16.84 [id number] 1955 Unknown [id number] 2.16.84 [id number] 1955 Unknown [id number] 2.16.8 [id number] 1955 Unknown [id number] 2.16.8 [id number] 1955 Unknown [id number] 2.16.8 [id number] Unknown Unknown [facility] [employer] . 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 , Lives with spouse, Nery BOSS Adis Tobacco use: Never smoker. [facility] Work Phone: Tobacco use: Tobacco use: [facility] Work Phone: Start: 05-16-2021 End: 05-16-2021 Tobacco smoking status NHIS Unknown if ever smoked [facility] Start: 1955 Sex Assigned At Female W [facility] Start: 05-08-2024 Tobacco smoking status Never s moked tobacco (finding) [facility] Functional Status Date Assessment Result Facility 06-23-2021 LP-IR Score <25 [facility] Work Phone: 06-16-2018 LP-IR Score <25 [facility] Work Phone: Comment on above: INSULIN RESISTANCE Shirin ALARCON <--Insulin Sensitive Insulin Resistant--> Percentile in Reference PopulationInsulin Resistance ScoreLP-IR Score Low 25th 50th 75th High <27 27 45 63 >63LP-IR Score is inaccurate if patient is non-fasting. .The LP-IR score is a laboratory developed index that has beenassociated with insulin resistance and diabetes risk and should beused as one component of a physician's clinical assessment. TheLP-IR score listed above has not been cleared by the [place] Food andDrug Administration. PERFORMED BY: [facility] [facility] [address] [id number] BY: [id number] [id number] 12-07-2016 LP-IR Score <25 [facility] Work Phone: Comment on above: INSULIN RESISTANCE Shirin ALARCON <--Insulin Sensitive Insulin Resistant--> Percentile in Reference PopulationInsulin Resistance ScoreLP-IR Score Low 25th 50th 75th High <27 27 45 63 >63LP-IR Score is inaccurate if patient is non-fasting. .The LP-IR score is a laboratory developed index that has beenassociated with insulin resistance and diabetes risk and should beused as one component of a physician's clinical assessment. TheLP-IR score listed above has not been cleared by the [place] Food andDrug Administration. PATIENT WAS FASTINGP ERFORMED BY: NALINI [facility] [id number] [facility] [id number] BY: AMI [facility] [id number] [facility]At[facility] [place] [id number] Clinical Notes 05-08-2024 Note Date & Type Note Facility 05-08-2024 Note ORIGINAL EXAMINATION: CT OF THE RIGHT KNEE WITHOUT CONTRAST 05/08/2024 3:16 pm TECHNIQUE: CT of the right knee was performed without the administration of intravenous contrast. Multiplanar reformatted images are provided for review. Automated exposure control, iterative reconstruction, and/or weight based adjustment of the mA/kV was utilized to reduce the radiation dose to as low as reasonably achievable. MA KO protocol was performed with axial images through the right hip and right ankle. COMPARISON: None. HISTORY ORDERING SYSTEM PROVIDED HISTORY: Reason for Exam: Unilateral primary osteoarthritis, right knee FINDINGS: There is no acute fracture or dislocation. There is no suspicious lytic or blastic osseous lesion. There is no aggressive periosteal reaction. Limited evaluation of the partially visualized pelvis due to lack of contrast. Stool and air in the region of the rectal vault. Severe femoroacetabular joint degenerative changes most pronounced in the anterior joint space with subchondral cysts in the acetabulum. Multifocal pelvic enthesopathy. Pubic symphysis is aligned. Small knee joint effusion. Small popliteal Watts's cyst. Tricompartmental osteoarthritis severe in the medial compartment with [id number], subchondral sclerosis and marginal osteophytes. Irregular depression of the subchondral surface involving the posteromedial femoral condyle measuring 9 mm suspicious for subchondral fracturing. Quadriceps enthesopathy. There is no evidence of solid or cystic soft tissue mass. IMPRESSION: Tricompartmental osteoarthritis severe in the medial compartment in patient presenting for preop planning. There is irregular depression of the subchondral surface involving the posteromedial femoral condyle measuring 9 mm suspicious for subchondral fracturing. Small knee joint effusion. Small popliteal Watts's cyst. Additional incidental findings above. Interpreted by: Carina Smith Preliminary Report By: Carina Smith Electronically signed By Carina Smith Dictated Date: 05/08/2024 4:15:37 PM Prelim Date: 05/08/2024 4:34:02 PM Sign Date: 05/08/2024 4:34:02 PM Ordering Provider: ANTONELLA PATEL [facility] Evaluation + Plan note Future Appointments [facility] Evaluation note No assessment inform ation available [facility] Work Phone: Hospital course Narrative No data available for this section [facility] Hospital Discharge instructions No data available for this section [facility] Instructions Name How to access health information online Indication:Exposure to SARS virus Start: Instruction Type:Patient Education How to access health information online - Detail Indication:Exposure to SARS virus Start: Instruction Type:Patient Education Patient Instructions Indication:Exposure to SARS virus Start: Instruction Type:Provider Instructions for Treatment How to access health information online Indication:Hypercholesterolem ia Start:02-Jan-20 Instruction Type:Patient Education How to access health information online - Detail Indication:Hypercholesterolem ia Start:02-Jan-20 Instruction Type:Patient Education Patient Instructions Indication:Hypercholesterolem ia Start:02-Jan-20 Instruction Type:Provider Instructions for Treatment How to access health information online Indication:BMI 23.0-23.9, adult Start:10-Jul-19 Instruction Type:Patient Education How to access health information online - Detail Indication:BMI 23.0-23.9, adult Start:10-Jul-19 Instruction Type:Patient Education Patient Instructions Indication:BMI 23.0-23.9, adult Start:10-Jul-19 Instruction Type:Provider Instructions for Treatment How to access health information online Indication:Hypothyroidism Start:14-Jan-20 Instruction Type:Patient Education How to access health information online - Detail Indication:Hypothyroidism Start:14-Jan-20 Instruction Type:Patient Education Patient Instructions Indication:Hypothyroidism Start:14-Jan-20 Instruction Type:Provider Instructions for Treatment How to access health information online Indication:Well woman exam with routine gynecological exam Start:14-Jul-19 Instruction Type:Patient Education How to access health information online - Detail Indication:Well woman exam with routine gynecological exam Start:14-Jul-19 Instruction Type:Patient Education Patient Instructions Indication:Well woman exam with routine gynecological exam Start:14-Jul-19 Instruction Type:Provider Instructions for Treatment How to access health information online Indication:Well woman exam with routine gynecological exam Start:18-Jun-20 Instruction Type:Patient Education How to access health information online - Detail Indication:Well woman exam with routine gynecological exam Start:18-Jun-20 Instruction Type:Patient Education Patient Instructions Indication:Well woman exam with routine gynecological exam Start:18-Jun-20 Instruction Type:Provider Instructions for Treatment How to access health information online - Detail Indication:Hypercholesterolem ia Start:18-Dec-19 Instruction Type:Patient Education How to access health information online Indication:Hypercholesterolem ia Start:18-Dec-19 Instruction Type:Patient Education How to access health information online - Detail Indication:Hypercholesterolem ia Start:18-Dec-19 Instruction Type:Patient Education How to access health information online Indication:Hypothyroidism Start:18-Jun-20 Instruction Type:Patient Education How to access health information online - Detail Indication:Hypothyroidism Start:18-Jun-20 Instruction Type:Patient Education Patient Instructions Indication:Hypothyroidism Start:18-Jun-20 16 Instruction Type:Provider Instructions for Treatment How to access health information online Indication:Hypothyroidism Start:02-Dec-19 Instruction Type:Patient Education How to access health information online - Detail Indication:Hypothyroidism Start:02-Dec-19 Instruction Type:Patient Education Patient Instructions Indication:Hypothyroidism Start:02-Dec-19 Instruction Type:Provider Instructions for Treatment Patient Instructions Indication:Hypothyroidism Start:18-Jun-20 15 Instruction Type:Provider Instructions for Treatment Patient Instructions Indication:Hypoglycemia Start:30-Apr-20 15 Instruction Type:Provider Instructions for Treatment How to access health information online Indication:Hypothyroidism Start: 5 Instruction Type:Patient Education How to access health information online - Detail Indication:Hypothyroidism Start: Instruction Type:Patient Education Patient Instructions Indication:Hypothyroidism Start: 5 Instruction Type:Provider Instructions for Treatment Patient Instructions Indication:Sinusitis, acute Start:19-Mar-20 14 Instruction Type:Provider Instructions for Treatment How to access health information online Indication:Sinusitis, acute Start:19-Mar-20 14 Instruction Type:Patient Education How to access health information online - Detail Indication:Sinusitis, acute Start:19-Mar-20 14 Instruction Type:Patient Education How to access health information online Indication:Hypothyroidism Start:16-Jan-20 14 Instruction Type:Patient Education How to access health information online - Detail Indication:Hypothyroidism Start:16-Jan-20 14 Instruction Type:Patient Education Patient Instructions Indication:Hypothyroidism Start:16-Jan-20 14 Instruction Type:Provider Instructions for Treatment Patient Instructions Indication:Hypothyroidism Start:17-Jul-19 Instruction Type:Provider Instructions for Treatment Patient Instructions Indication:Sinusitis, acute Start:30-Mar-20 Instruction Type:Provider Instructions for Treatment Patient Instructions Indication:Cough Start:30-Mar-20 Instruction Type:Provider Instructions for Treatment Patient Instructions Indication:Well woman exam with routine gynecological exam Start:03-Jan-20 Instruction Type:Provider Instructions for Treatment [facility] Work Phone: Instructions* Name Dates Details How to access health informa tion online Indication:Exposure to SARS virus Start:26-Apr-2020 Instruction Type:Patient Education How to access health informa tion online - Detail Indication:Exposure to SARS virus Start:26-Apr-2020 Instruction Type:Patient Education Patient Instructions Indication:Exposure to SARS virus Start:26-Apr-2020 Instruction Type:Provider Instructions for Treatment How to access health informa tion online Indication:Hypercholesterolemia Start:02-Jan-2020 Instruction Type:Patient Education How to access health informa tion online - Detail Indication:Hypercholesterolemia Start:02-Jan-2020 Instruction Type:Patient Education Patient Instructions Indication:Hypercholesterolemia Start:02-Jan-2020 Instruction Type:Provider Instructions for Treatment How to access health informa tion online Indication:BMI 23.0-23.9, adult Start:10-Jul-2019 Instruction Type:Patient Education How to access health informa tion online - Detail Indication:BMI 23.0-23.9, adult Start:10-Jul-2019 Instruction Type:Patient Education Patient Instructions Indication:BMI 23.0-23.9, adult Start:10-Jul-2019 Instruction Type:Provider Instructions for Treatment How to access health informa tion online Indication:Hypothyroidism Start:13-Jan-2019 Instruction Type:Patient Education How to access health informa tion online - Detail Indication:Hypothyroidism Start:13-Jan-2019 Instruction Type:Patient Education Patient Instructions Indication:Hypothyroidism Start:13-Jan-2019 Instruction Type:Provider Instructions for Treatment How to access health informa tion online Indication:Well woman exam with routine gynecological exam Start:14-Jul-2018 Instruction Type:Patient Education How to access health informa tion online - Detail Indication:Well woman exam with routine gynecological exam Start:14-Jul-2018 Instruction Type:Patient Education Patient Instructions Indication:Well woman exam with routine gynecological exam Start:14-Jul-2018 Instruction Type:Provider Instructions for Treatment How to access health informa tion online Indication:Well woman exam with routine gynecological exam Start:18-Jun-2017 Instruction Type:Patient Education How to access health informa tion online - Detail Indication:Well woman exam with routine gynecological exam Start:18-Jun-2017 Instruction Type:Patient Education Patient Instructions Indication:Well woman exam with routine gynecological exam Start:18-Jun-2017 Instruction Type:Provider Instructions for Treatment How to access health informa tion online - Detail Indication:Hypercholesterolemia Start:17-Dec-2016 Instruction Type:Patient Education How to access health informa tion online Indication:Hypercholesterolemia Start:17-Dec-2016 Instruction Type:Patient Education How to access health informa tion online - Detail Indication:Hypercholesterolemia Start:17-Dec-2016 Instruction Type:Patient Education How to access health informa tion online Indication:Hypothyroidism Start:18-Jun-2016 Instruction Type:Patient Education How to access health informa tion online - Detail Indication:Hypothyroidism Start:18-Jun-2016 Instruction Type:Patient Education Patient Instructions Indication:Hypothyroidism Start:18-Jun-2016 Instruction Type:Provider Instructions for Treatment How to access health informa tion online Indication:Hypothyroidism Start:02-Dec-2015 Instruction Type:Patient Education How to access health informa tion online - Detail Indication:Hypothyroidism Start:02-Dec-2015 Instruction Type:Patient Education Patient Instructions Indication:Hypothyroidism Start:02-Dec-2015 Instruction Type:Provider Instructions for Treatment Patient Instructions Indication:Hypothyroidism Start:18-Jun-2015 Instruction Type:Provider Instructions for Treatment Patient Instructions Indication:Hypoglycemia Start:30-Apr-2015 Instruction Type:Provider Instructions for Treatment How to access health informa tion online Indication:Hypothyroidism Start:24-Dec-2014 Instruction Type:Patient Education How to access health informa tion online - Detail Indication:Hypothyroidism Start:24-Dec-2014 Instruction Type:Patient Education Patient Instructions Indication:Hypothyroidism Start:24-Dec-2014 Instruction Type:Provider Instructions for Treatment Patient Instructions Indication:Sinusitis, acute Start:19-Mar-2014 Instruction Type:Provider Instructions for Treatment How to access health informa tion online Indication:Sinusitis, acute Start:19-Mar-2014 Instruction Type:Patient Education How to access health informa tion online - Detail Indication:Sinusitis, acute Start:19-Mar-2014 Instruction Type:Patient Education How to access health informa tion online Indication:Hypothyroidism Start:15-Jan-2014 Instruction Type:Patient Education How to access health informa tion online - Detail Indication:Hypothyroidism Start:15-Jan-2014 Instruction Type:Patient Education Patient Instructions Indication:Hypothyroidism Start:15-Jan-2014 Instruction Type:Provider Instructions for Treatment Patient Instructions Indication:Hypothyroidism Start:17-Jul-2013 Instruction Type:Provider Instructions for Treatment Patient Instructions Indication:Sinusitis, acute Start:30-Mar-2013 Instruction Type:Provider Instructions for Treatment Patient Instructions Indication:Cough Start:30-Mar-2013 Instruction Type:Provider Instructions for Treatment Patient Instructions Indication:Well woman exam with routine gynecological exam Start:02-Jan-2013 Instruction Type:Provider Instructions for Treatment [facility] Work Phone: Instructions* Name Dates Details Patient Instructions Indication:Sciatica of right side Start:27-Feb-2021 Instruction Type:Provider Instructions for Treatment How to Access Health Informa tion Online using Patient Portal and [employer] Apps Indication:Sciatica of right side Start:27-Feb-2021 Instruction Type:Patient Education Patient Instructions Indication:Sciatica of right side Start:27-Jan-2021 Instruction Type:Provider Instructions for Treatment How to Access Health Informa tion Online using Patient Portal and [employer] Apps Indication:Sciatica of right side Start:27-Jan-2021 Instruction Type:Patient Education How to access health informa tion online Indication:Exposure to SARS virus Start:26-Apr-2020 Instruction Type:Patient Education How to access health informa tion online - Detail Indication:Exposure to SARS virus Start:26-Apr-2020 Instruction Type:Patient Education Patient Instructions Indication:Exposure to SARS virus Start:26-Apr-2020 Instruction Type:Provider Instructions for Treatment How to access health informa tion online Indication:Hypercholesterolemia Start:02-Jan-2020 Instruction Type:Patient Education How to access health informa tion online - Detail Indication:Hypercholesterolemia Start:02-Jan-2020 Instruction Type:Patient Education Patient Instructions Indication:Hypercholesterolemia Start:02-Jan-2020 Instruction Type:Provider Instructions for Treatment How to access health informa tion online Indication:BMI 23.0-23.9, adult Start:10-Jul-2019 Instruction Type:Patient Education How to access health informa tion online - Detail Indication:BMI 23.0-23.9, adult Start:10-Jul-2019 Instruction Type:Patient Education Patient Instructions Indication:BMI 23.0-23.9, adult Start:10-Jul-2019 Instruction Type:Provider Instructions for Treatment How to access health informa tion online Indication:Hypothyroidism Start:13-Jan-2019 Instruction Type:Patient Education How to access health informa tion online - Detail Indication:Hypothyroidism Start:13-Jan-2019 Instruction Type:Patient Education Patient Instructions Indication:Hypothyroidism Start:13-Jan-2019 Instruction Type:Provider Instructions for Treatment How to access health informa tion online Indication:Well woman exam with routine gynecological exam Start:14-Jul-2018 Instruction Type:Patient Education How to access health informa tion online - Detail Indication:Well woman exam with routine gynecological exam Start:14-Jul-2018 Instruction Type:Patient Education Patient Instructions Indication:Well woman exam with routine gynecological exam Start:14-Jul-2018 Instruction Type:Provider Instructions for Treatment How to access health informa tion online Indication:Well woman exam with routine gynecological exam Start:18-Jun-2017 Instruction Type:Patient Education How to access health informa tion online - Detail Indication:Well woman exam with routine gynecological exam Start:18-Jun-2017 Instruction Type:Patient Education Patient Instructions Indication:Well woman exam with routine gynecological exam Start:18-Jun-2017 Instruction Type:Provider Instructions for Treatment How to access health informa tion online - Detail Indication:Hypercholesterolemia Start:17-Dec-2016 Instruction Type:Patient Education How to access health informa tion online Indication:Hypercholesterolemia Start:17-Dec-2016 Instruction Type:Patient Education How to access health informa tion online - Detail Indication:Hypercholesterolemia Start:17-Dec-2016 Instruction Type:Patient Education How to access health informa tion online Indication:Hypothyroidism Start:18-Jun-2016 Instruction Type:Patient Education How to access health informa tion online - Detail Indication:Hypothyroidism Start:18-Jun-2016 Instruction Type:Patient Education Patient Instructions Indication:Hypothyroidism Start:18-Jun-2016 Instruction Type:Provider Instructions for Treatment How to access health informa tion online Indication:Hypothyroidism Start:02-Dec-2015 Instruction Type:Patient Education How to access health informa tion online - Detail Indication:Hypothyroidism Start:02-Dec-2015 Instruction Type:Patient Education Patient Instructions Indication:Hypothyroidism Start:02-Dec-2015 Instruction Type:Provider Instructions for Treatment Patient Instructions Indication:Hypothyroidism Start:18-Jun-2015 Instruction Type:Provider Instructions for Treatment Patient Instructions Indication:Hypoglycemia Start:30-Apr-2015 Instruction Type:Provider Instructions for Treatment How to access health informa tion online Indication:Hypothyroidism Start:24-Dec-2014 Instruction Type:Patient Education How to access health informa tion online - Detail Indication:Hypothyroidism Start:24-Dec-2014 Instruction Type:Patient Education Patient Instructions Indication:Hypothyroidism Start:24-Dec-2014 Instruction Type:Provider Instructions for Treatment Patient Instructions Indication:Sinusitis, acute Start:19-Mar-2014 Instruction Type:Provider Instructions for Treatment How to access health informa tion online Indication:Sinusitis, acute Start:19-Mar-2014 Instruction Type:Patient Education How to access health informa tion online - Detail Indication:Sinusitis, acute Start:19-Mar-2014 Instruction Type:Patient Education How to access health informa tion online Indication:Hypothyroidism Start:15-Jan-2014 Instruction Type:Patient Education How to access health informa tion online - Detail Indication:Hypothyroidism Start:15-Jan-2014 Instruction Type:Patient Education Patient Instructions Indication:Hypothyroidism Start:15-Jan-2014 Instruction Type:Provider Instructions for Treatment Patient Instructions Indication:Hypothyroidism Start:17-Jul-2013 Instruction Type:Provider Instructions for Treatment Patient Instructions Indication:Sinusitis, acute Start:30-Mar-2013 Instruction Type:Provider Instructions for Treatment Patient Instructions Indication:Cough Start:30-Mar-2013 Instruction Type:Provider Instructions for Treatment Patient Instructions Indication:Well woman exam with routine gynecological exam Start:02-Jan-2013 Instruction Type:Provider Instructions for Treatment [facility] Work Phone: Instructions* Name Dates Details Patient Instructions Indication:Sciatica of right side Start:27-Feb-2021 Instruction Type:Provider Instructions for Treatment How to Access Health Informa tion Online using Patient Portal and [employer] Apps Indication:Sciatica of right side Start:27-Feb-2021 Instruction Type:Patient Education Patient Instructions Indication:Sciatica of right side Start:27-Jan-2021 Instruction Type:Provider Instructions for Treatment How to Access Health Informa tion Online using Patient Portal and [employer] Apps Indication:Sciatica of right side Start:27-Jan-2021 Instruction Type:Patient Education How to access health informa tion online Indication:Exposure to SARS virus Start:26-Apr-2020 Instruction Type:Patient Education How to access health informa tion online - Detail Indication:Exposure to SARS virus Start:26-Apr-2020 Instruction Type:Patient Education Patient Instructions Indication:Exposure to SARS virus Start:26-Apr-2020 Instruction Type:Provider Instructions for Treatment How to access health informa tion online Indication:Hypercholesterolemia Start:02-Jan-2020 Instruction Type:Patient Education How to access health informa tion online - Detail Indication:Hypercholesterolemia Start:02-Jan-2020 Instruction Type:Patient Education Patient Instructions Indication:Hypercholesterolemia Start:02-Jan-2020 Instruction Type:Provider Instructions for Treatment How to access health informa tion online Indication:BMI 23.0-23.9, adult Start:10-Jul-2019 Instruction Type:Patient Education How to access health informa tion online - Detail Indication:BMI 23.0-23.9, adult Start:10-Jul-2019 Instruction Type:Patient Education Patient Instructions Indication:BMI 23.0-23.9, adult Start:10-Jul-2019 Instruction Type:Provider Instructions for Treatment How to access health informa tion online Indication:Hypothyroidism Start:13-Jan-2019 Instruction Type:Patient Education How to access health informa tion online - Detail Indication:Hypothyroidism Start:13-Jan-2019 Instruction Type:Patient Education Patient Instructions Indication:Hypothyroidism Start:13-Jan-2019 Instruction Type:Provider Instructions for Treatment How to access health informa tion online Indication:Well woman exam with routine gynecological exam Start:14-Jul-2018 Instruction Type:Patient Education How to access health informa tion online - Detail Indication:Well woman exam with routine gynecological exam Start:14-Jul-2018 Instruction Type:Patient Education Patient Instructions Indication:Well woman exam with routine gynecological exam Start:14-Jul-2018 Instruction Type:Provider Instructions for Treatment How to access health informa tion online Indication:Well woman exam with routine gynecological exam Start:18-Jun-2017 Instruction Type:Patient Education How to access health informa tion online - Detail Indication:Well woman exam with routine gynecological exam Start:18-Jun-2017 Instruction Type:Patient Education Patient Instructions Indication:Well woman exam with routine gynecological exam Start:18-Jun-2017 Instruction Type:Provider Instructions for Treatment How to access health informa tion online - Detail Indication:Hypercholesterolemia Start:17-Dec-2016 Instruction Type:Patient Education How to access health informa tion online Indication:Hypercholesterolemia Start:17-Dec-2016 Instruction Type:Patient Education How to access health informa tion online - Detail Indication:Hypercholesterolemia Start:17-Dec-2016 Instruction Type:Patient Education How to access health informa tion online Indication:Hypothyroidism Start:18-Jun-2016 Instruction Type:Patient Education How to access health informa tion online - Detail Indication:Hypothyroidism Start:18-Jun-2016 Instruction Type:Patient Education Patient Instructions Indication:Hypothyroidism Start:18-Jun-2016 Instruction Type:Provider Instructions for Treatment How to access health informa tion online Indication:Hypothyroidism Start:02-Dec-2015 Instruction Type:Patient Education How to access health informa tion online - Detail Indication:Hypothyroidism Start:02-Dec-2015 Instruction Type:Patient Education Patient Instructions Indication:Hypothyroidism Start:02-Dec-2015 Instruction Type:Provider Instructions for Treatment Patient Instructions Indication:Hypothyroidism Start:18-Jun-2015 Instruction Type:Provider Instructions for Treatment Patient Instructions Indication:Hypoglycemia Start:30-Apr-2015 Instruction Type:Provider Instructions for Treatment How to access health informa tion online Indication:Hypothyroidism Start:24-Dec-2014 Instruction Type:Patient Education How to access health informa tion online - Detail Indication:Hypothyroidism Start:24-Dec-2014 Instruction Type:Patient Education Patient Instructions Indication:Hypothyroidism Start:24-Dec-2014 Instruction Type:Provider Instructions for Treatment Patient Instructions Indication:Sinusitis, acute Start:19-Mar-2014 Instruction Type:Provider Instructions for Treatment How to access health informa tion online Indication:Sinusitis, acute Start:19-Mar-2014 Instruction Type:Patient Education How to access health informa tion online - Detail Indication:Sinusitis, acute Start:19-Mar-2014 Instruction Type:Patient Education How to access health informa tion online Indication:Hypothyroidism Start:15-Jan-2014 Instruction Type:Patient Education How to access health informa tion online - Detail Indication:Hypothyroidism Start:15-Jan-2014 Instruction Type:Patient Education Patient Instructions Indication:Hypothyroidism Start:15-Jan-2014 Instruction Type:Provider Instructions for Treatment Patient Instructions Indication:Hypothyroidism Start:17-Jul-2013 Instruction Type:Provider Instructions for Treatment Patient Instructions Indication:Sinusitis, acute Start:30-Mar-2013 Instruction Type:Provider Instructions for Treatment Patient Instructions Indication:Cough Start:30-Mar-2013 Instruction Type:Provider Instructions for Treatment Patient Instructions Indication:Well woman exam with routine gynecological exam Start:02-Jan-2013 Instruction Type:Provider Instructions for Treatment [facility]; [facility] Work Phone: Instructions* Name Dates Details Patient Instructions Indication:Sciatica of right side Start:27-Feb-2021 Instruction Type:Provider Instructions for Treatment How to Access Health Informa tion Online using Patient Portal and [employer] Apps Indication:Sciatica of right side Start:27-Feb-2021 Instruction Type:Patient Education Patient Instructions Indication:Sciatica of right side Start:27-Jan-2021 Instruction Type:Provider Instructions for Treatment How to Access Health Informa tion Online using Patient Portal and [employer] Apps Indication:Sciatica of right side Start:27-Jan-2021 Instruction Type:Patient Education How to access health informa tion online Indication:Exposure to SARS virus Start:26-Apr-2020 Instruction Type:Patient Education How to access health informa tion online - Detail Indication:Exposure to SARS virus Start:26-Apr-2020 Instruction Type:Patient Education Patient Instructions Indication:Exposure to SARS virus Start:26-Apr-2020 Instruction Type:Provider Instructions for Treatment How to access health informa tion online Indication:Hypercholesterolemia Start:02-Jan-2020 Instruction Type:Patient Education How to access health informa tion online - Detail Indication:Hypercholesterolemia Start:02-Jan-2020 Instruction Type:Patient Education Patient Instructions Indication:Hypercholesterolemia Start:02-Jan-2020 Instruction Type:Provider Instructions for Treatment How to access health informa tion online Indication:BMI 23.0-23.9, adult Start:10-Jul-2019 Instruction Type:Patient Education How to access health informa tion online - Detail Indication:BMI 23.0-23.9, adult Start:10-Jul-2019 Instruction Type:Patient Education Patient Instructions Indication:BMI 23.0-23.9, adult Start:10-Jul-2019 Instruction Type:Provider Instructions for Treatment How to access health informa tion online Indication:Hypothyroidism Start:13-Jan-2019 Instruction Type:Patient Education How to access health informa tion online - Detail Indication:Hypothyroidism Start:13-Jan-2019 Instruction Type:Patient Education Patient Instructions Indication:Hypothyroidism Start:13-Jan-2019 Instruction Type:Provider Instructions for Treatment How to access health informa tion online Indication:Well woman exam with routine gynecological exam Start:14-Jul-2018 Instruction Type:Patient Education How to access health informa tion online - Detail Indication:Well woman exam with routine gynecological exam Start:14-Jul-2018 Instruction Type:Patient Education Patient Instructions Indication:Well woman exam with routine gynecological exam Start:14-Jul-2018 Instruction Type:Provider Instructions for Treatment How to access health informa tion online Indication:Well woman exam with routine gynecological exam Start:18-Jun-2017 Instruction Type:Patient Education How to access health informa tion online - Detail Indication:Well woman exam with routine gynecological exam Start:18-Jun-2017 Instruction Type:Patient Education Patient Instructions Indication:Well woman exam with routine gynecological exam Start:18-Jun-2017 Instruction Type:Provider Instructions for Treatment How to access health informa tion online - Detail Indication:Hypercholesterolemia Start:17-Dec-2016 Instruction Type:Patient Education How to access health informa tion online Indication:Hypercholesterolemia Start:17-Dec-2016 Instruction Type:Patient Education How to access health informa tion online - Detail Indication:Hypercholesterolemia Start:17-Dec-2016 Instruction Type:Patient Education How to access health informa tion online Indication:Hypothyroidism Start:18-Jun-2016 Instruction Type:Patient Education How to access health informa tion online - Detail Indication:Hypothyroidism Start:18-Jun-2016 Instruction Type:Patient Education Patient Instructions Indication:Hypothyroidism Start:18-Jun-2016 Instruction Type:Provider Instructions for Treatment How to access health informa tion online Indication:Hypothyroidism Start:02-Dec-2015 Instruction Type:Patient Education How to access health informa tion online - Detail Indication:Hypothyroidism Start:02-Dec-2015 Instruction Type:Patient Education Patient Instructions Indication:Hypothyroidism Start:02-Dec-2015 Instruction Type:Provider Instructions for Treatment Patient Instructions Indication:Hypothyroidism Start:18-Jun-2015 Instruction Type:Provider Instructions for Treatment Patient Instructions Indication:Hypoglycemia Start:30-Apr-2015 Instruction Type:Provider Instructions for Treatment How to access health informa tion online Indication:Hypothyroidism Start:24-Dec-2014 Instruction Type:Patient Education How to access health informa tion online - Detail Indication:Hypothyroidism Start:24-Dec-2014 Instruction Type:Patient Education Patient Instructions Indication:Hypothyroidism Start:24-Dec-2014 Instruction Type:Provider Instructions for Treatment Patient Instructions Indication:Sinusitis, acute Start:19-Mar-2014 Instruction Type:Provider Instructions for Treatment How to access health informa tion online Indication:Sinusitis, acute Start:19-Mar-2014 Instruction Type:Patient Education How to access health informa tion online - Detail Indication:Sinusitis, acute Start:19-Mar-2014 Instruction Type:Patient Education How to access health informa tion online Indication:Hypothyroidism Start:15-Jan-2014 Instruction Type:Patient Education How to access health informa tion online - Detail Indication:Hypothyroidism Start:15-Jan-2014 Instruction Type:Patient Education Patient Instructions Indication:Hypothyroidism Start:15-Jan-2014 Instruction Type:Provider Instructions for Treatment Patient Instructions Indication:Hypothyroidism Start:17-Jul-2013 Instruction Type:Provider Instructions for Treatment Patient Instructions Indication:Sinusitis, acute Start:30-Mar-2013 Instruction Type:Provider Instructions for Treatment Patient Instructions Indication:Cough Start:30-Mar-2013 Instruction Type:Provider Instructions for Treatment Patient Instructions Indication:Well woman exam with routine gynecological exam Start:02-Jan-2013 Instruction Type:Provider Instructions for Treatment [facility]; [facility] Work Phone: Instructions* Name Dates Details Patient Instructions Indication:Current nonsmoker (Renamed from Current non-smoker) Start:04-Sep-2021 Instruction Type:Provider Instructions for Treatment How to Access Health Informa tion Online using Patient Portal and [employer] Apps Indication:Current nonsmoker (Renamed from Current non-smoker) Start:04-Sep-2021 Instruction Type:Patient Education Patient Instructions Indication:Sciatica of right side Start:27-Feb-2021 Instruction Type:Provider Instructions for Treatment How to Access Health Informa tion Online using Patient Portal and [employer] Apps Indication:Sciatica of right side Start:27-Feb-2021 Instruction Type:Patient Education Patient Instructions Indication:Sciatica of right side Start:27-Jan-2021 Instruction Type:Provider Instructions for Treatment How to Access Health Informa tion Online using Patient Portal and [employer] Apps Indication:Sciatica of right side Start:27-Jan-2021 Instruction Type:Patient Education How to access health informa tion online Indication:Exposure to SARS virus Start:26-Apr-2020 Instruction Type:Patient Education How to access health informa tion online - Detail Indication:Exposure to SARS virus Start:26-Apr-2020 Instruction Type:Patient Education Patient Instructions Indication:Exposure to SARS virus Start:26-Apr-2020 Instruction Type:Provider Instructions for Treatment How to access health informa tion online Indication:Hypercholesterolemia Start:02-Jan-2020 Instruction Type:Patient Education How to access health informa tion online - Detail Indication:Hypercholesterolemia Start:02-Jan-2020 Instruction Type:Patient Education Patient Instructions Indication:Hypercholesterolemia Start:02-Jan-2020 Instruction Type:Provider Instructions for Treatment How to access health informa tion online Indication:BMI 23.0-23.9, adult Start:10-Jul-2019 Instruction Type:Patient Education How to access health informa tion online - Detail Indication:BMI 23.0-23.9, adult Start:10-Jul-2019 Instruction Type:Patient Education Patient Instructions Indication:BMI 23.0-23.9, adult Start:10-Jul-2019 Instruction Type:Provider Instructions for Treatment How to access health informa tion online Indication:Hypothyroidism Start:13-Jan-2019 Instruction Type:Patient Education How to access health informa tion online - Detail Indication:Hypothyroidism Start:13-Jan-2019 Instruction Type:Patient Education Patient Instructions Indication:Hypothyroidism Start:13-Jan-2019 Instruction Type:Provider Instructions for Treatment How to access health informa tion online Indication:Well woman exam with routine gynecological exam Start:14-Jul-2018 Instruction Type:Patient Education How to access health informa tion online - Detail Indication:Well woman exam with routine gynecological exam Start:14-Jul-2018 Instruction Type:Patient Education Patient Instructions Indication:Well woman exam with routine gynecological exam Start:14-Jul-2018 Instruction Type:Provider Instructions for Treatment How to access health informa tion online Indication:Well woman exam with routine gynecological exam Start:18-Jun-2017 Instruction Type:Patient Education How to access health informa tion online - Detail Indication:Well woman exam with routine gynecological exam Start:18-Jun-2017 Instruction Type:Patient Education Patient Instructions Indication:Well woman exam with routine gynecological exam Start:18-Jun-2017 Instruction Type:Provider Instructions for Treatment How to access health informa tion online - Detail Indication:Hypercholesterolemia Start:17-Dec-2016 Instruction Type:Patient Education How to access health informa tion online Indication:Hypercholesterolemia Start:17-Dec-2016 Instruction Type:Patient Education How to access health informa tion online - Detail Indication:Hypercholesterolemia Start:17-Dec-2016 Instruction Type:Patient Education How to access health informa tion online Indication:Hypothyroidism Start:18-Jun-2016 Instruction Type:Patient Education How to access health informa tion online - Detail Indication:Hypothyroidism Start:18-Jun-2016 Instruction Type:Patient Education Patient Instructions Indication:Hypothyroidism Start:18-Jun-2016 Instruction Type:Provider Instructions for Treatment How to access health informa tion online Indication:Hypothyroidism Start:02-Dec-2015 Instruction Type:Patient Education How to access health informa tion online - Detail Indication:Hypothyroidism Start:02-Dec-2015 Instruction Type:Patient Education Patient Instructions Indication:Hypothyroidism Start:02-Dec-2015 Instruction Type:Provider Instructions for Treatment Patient Instructions Indication:Hypothyroidism Start:18-Jun-2015 Instruction Type:Provider Instructions for Treatment Patient Instructions Indication:Hypoglycemia Start:30-Apr-2015 Instruction Type:Provider Instructions for Treatment How to access health informa tion online Indication:Hypothyroidism Start:24-Dec-2014 Instruction Type:Patient Education How to access health informa tion online - Detail Indication:Hypothyroidism Start:24-Dec-2014 Instruction Type:Patient Education Patient Instructions Indication:Hypothyroidism Start:24-Dec-2014 Instruction Type:Provider Instructions for Treatment Patient Instructions Indication:Sinusitis, acute Start:19-Mar-2014 Instruction Type:Provider Instructions for Treatment How to access health informa tion online Indication:Sinusitis, acute Start:19-Mar-2014 Instruction Type:Patient Education How to access health informa tion online - Detail Indication:Sinusitis, acute Start:19-Mar-2014 Instruction Type:Patient Education How to access health informa tion online Indication:Hypothyroidism Start:15-Jan-2014 Instruction Type:Patient Education How to access health informa tion online - Detail Indication:Hypothyroidism Start:15-Jan-2014 Instruction Type:Patient Education Patient Instructions Indication:Hypothyroidism Start:15-Jan-2014 Instruction Type:Provider Instructions for Treatment Patient Instructions Indication:Hypothyroidism Start:17-Jul-2013 Instruction Type:Provider Instructions for Treatment Patient Instructions Indication:Sinusitis, acute Start:30-Mar-2013 Instruction Type:Provider Instructions for Treatment Patient Instructions Indication:Cough Start:30-Mar-2013 Instruction Type:Provider Instructions for Treatment Patient Instructions Indication:Well woman exam with routine gynecological exam Start:02-Jan-2013 Instruction Type:Provider Instructions for Treatment [facility]; [facility] Work Phone: Instructions* Name Dates Details Patient Instructions Indication:Current nonsmoker (Renamed from Current non-smoker) Start:04-Sep-2021 Instruction Type:Provider Instructions for Treatment How to Access Health Informa tion Online using Patient Portal and [employer] Apps Indication:Current nonsmoker (Renamed from Current non-smoker) Start:04-Sep-2021 Instruction Type:Patient Education Patient Instructions Indication:Sciatica of right side Start:27-Feb-2021 Instruction Type:Provider Instructions for Treatment How to Access Health Informa tion Online using Patient Portal and [employer] Apps Indication:Sciatica of right side Start:27-Feb-2021 Instruction Type:Patient Education Patient Instructions Indication:Sciatica of right side Start:27-Jan-2021 Instruction Type:Provider Instructions for Treatment How to Access Health Informa tion Online using Patient Portal and [employer] Apps Indication:Sciatica of right side Start:27-Jan-2021 Instruction Type:Patient Education How to access health informa tion online Indication:Exposure to SARS virus Start:26-Apr-2020 Instruction Type:Patient Education How to access health informa tion online - Detail Indication:Exposure to SARS virus Start:26-Apr-2020 Instruction Type:Patient Education Patient Instructions Indication:Exposure to SARS virus Start:26-Apr-2020 Instruction Type:Provider Instructions for Treatment How to access health informa tion online Indication:Hypercholesterolemia Start:02-Jan-2020 Instruction Type:Patient Education How to access health informa tion online - Detail Indication:Hypercholesterolemia Start:02-Jan-2020 Instruction Type:Patient Education Patient Instructions Indication:Hypercholesterolemia Start:02-Jan-2020 Instruction Type:Provider Instructions for Treatment How to access health informa tion online Indication:BMI 23.0-23.9, adult Start:10-Jul-2019 Instruction Type:Patient Education How to access health informa tion online - Detail Indication:BMI 23.0-23.9, adult Start:10-Jul-2019 Instruction Type:Patient Education Patient Instructions Indication:BMI 23.0-23.9, adult Start:10-Jul-2019 Instruction Type:Provider Instructions for Treatment How to access health informa tion online Indication:Hypothyroidism Start:13-Jan-2019 Instruction Type:Patient Education How to access health informa tion online - Detail Indication:Hypothyroidism Start:13-Jan-2019 Instruction Type:Patient Education Patient Instructions Indication:Hypothyroidism Start:13-Jan-2019 Instruction Type:Provider Instructions for Treatment How to access health informa tion online Indication:Well woman exam with routine gynecological exam Start:14-Jul-2018 Instruction Type:Patient Education How to access health informa tion online - Detail Indication:Well woman exam with routine gynecological exam Start:14-Jul-2018 Instruction Type:Patient Education Patient Instructions Indication:Well woman exam with routine gynecological exam Start:14-Jul-2018 Instruction Type:Provider Instructions for Treatment How to access health informa tion online Indication:Well woman exam with routine gynecological exam Start:18-Jun-2017 Instruction Type:Patient Education How to access health informa tion online - Detail Indication:Well woman exam with routine gynecological exam Start:18-Jun-2017 Instruction Type:Patient Education Patient Instructions Indication:Well woman exam with routine gynecological exam Start:18-Jun-2017 Instruction Type:Provider Instructions for Treatment How to access health informa tion online - Detail Indication:Hypercholesterolemia Start:17-Dec-2016 Instruction Type:Patient Education How to access health informa tion online Indication:Hypercholesterolemia Start:17-Dec-2016 Instruction Type:Patient Education How to access health informa tion online - Detail Indication:Hypercholesterolemia Start:17-Dec-2016 Instruction Type:Patient Education How to access health informa tion online Indication:Hypothyroidism Start:18-Jun-2016 Instruction Type:Patient Education How to access health informa tion online - Detail Indication:Hypothyroidism Start:18-Jun-2016 Instruction Type:Patient Education Patient Instructions Indication:Hypothyroidism Start:18-Jun-2016 Instruction Type:Provider Instructions for Treatment How to access health informa tion online Indication:Hypothyroidism Start:02-Dec-2015 Instruction Type:Patient Education How to access health informa tion online - Detail Indication:Hypothyroidism Start:02-Dec-2015 Instruction Type:Patient Education Patient Instructions Indication:Hypothyroidism Start:02-Dec-2015 Instruction Type:Provider Instructions for Treatment Patient Instructions Indication:Hypothyroidism Start:18-Jun-2015 Instruction Type:Provider Instructions for Treatment Patient Instructions Indication:Hypoglycemia Start:30-Apr-2015 Instruction Type:Provider Instructions for Treatment How to access health informa tion online Indication:Hypothyroidism Start:24-Dec-2014 Instruction Type:Patient Education How to access health informa tion online - Detail Indication:Hypothyroidism Start:24-Dec-2014 Instruction Type:Patient Education Patient Instructions Indication:Hypothyroidism Start:24-Dec-2014 Instruction Type:Provider Instructions for Treatment Patient Instructions Indication:Sinusitis, acute Start:19-Mar-2014 Instruction Type:Provider Instructions for Treatment How to access health informa tion online Indication:Sinusitis, acute Start:19-Mar-2014 Instruction Type:Patient Education How to access health informa tion online - Detail Indication:Sinusitis, acute Start:19-Mar-2014 Instruction Type:Patient Education How to access health informa tion online Indication:Hypothyroidism Start:15-Jan-2014 Instruction Type:Patient Education How to access health informa tion online - Detail Indication:Hypothyroidism Start:15-Jan-2014 Instruction Type:Patient Education Patient Instructions Indication:Hypothyroidism Start:15-Jan-2014 Instruction Type:Provider Instructions for Treatment Patient Instructions Indication:Hypothyroidism Start:17-Jul-2013 Instruction Type:Provider Instructions for Treatment Patient Instructions Indication:Sinusitis, acute Start:30-Mar-2013 Instruction Type:Provider Instructions for Treatment Patient Instructions Indication:Cough Start:30-Mar-2013 Instruction Type:Provider Instructions for Treatment Patient Instructions Indication:Well woman exam with routine gynecological exam Start:02-Jan-2013 Instruction Type:Provider Instructions for Treatment [facility]; [facility] Work Phone: Instructions* Name Dates Details Patient Instructions Indication:Current nonsmoker (Renamed from Current non-smoker) Start:09-Jan-2022 Instruction Type:Provider Instructions for Treatment How to Access Health Informa tion Online using Patient Portal and [employer] Apps Indication:Current nonsmoker (Renamed from Current non-smoker) Start:09-Jan-2022 Instruction Type:Patient Education Patient Instructions Indication:Current nonsmoker (Renamed from Current non-smoker) Start:04-Sep-2021 Instruction Type:Provider Instructions for Treatment How to Access Health Informa tion Online using Patient Portal and [employer] Apps Indication:Current nonsmoker (Renamed from Current non-smoker) Start:04-Sep-2021 Instruction Type:Patient Education Patient Instructions Indication:Sciatica of right side Start:27-Feb-2021 Instruction Type:Provider Instructions for Treatment How to Access Health Informa tion Online using Patient Portal and [employer] Indication:Sciatica of right side Start:27-Feb-2021 Instruction Type:Patient Education Patient Instructions Indication:Sciatica of right side Start:27-Jan-2021 Instruction Type:Provider Instructions for Treatment How to Access Health Informa tion Online using Patient Portal and [employer] Indication:Sciatica of right side Start:27-Jan-2021 Instruction Type:Patient Education How to access health informa tion online Indication:Exposure to SARS virus Start:26-Apr-2020 Instruction Type:Patient Education How to access health informa tion online - Detail Indication:Exposure to SARS virus Start:26-Apr-2020 Instruction Type:Patient Education Patient Instructions Indication:Exposure to SARS virus Start:26-Apr-2020 Instruction Type:Provider Instructions for Treatment How to access health informa tion online Indication:Hypercholesterolemia Start:02-Jan-2020 Instruction Type:Patient Education How to access health informa tion online - Detail Indication:Hypercholesterolemia Start:02-Jan-2020 Instruction Type:Patient Education Patient Instructions Indication:Hypercholesterolemia Start:02-Jan-2020 Instruction Type:Provider Instructions for Treatment How to access health informa tion online Indication:BMI 23.0-23.9, adult Start:10-Jul-2019 Instruction Type:Patient Education How to access health informa tion online - Detail Indication:BMI 23.0-23.9, adult Start:10-Jul-2019 Instruction Type:Patient Education Patient Instructions Indication:BMI 23.0-23.9, adult Start:10-Jul-2019 Instruction Type:Provider Instructions for Treatment How to access health informa tion online Indication:Hypothyroidism Start:13-Jan-2019 Instruction Type:Patient Education How to access health informa tion online - Detail Indication:Hypothyroidism Start:13-Jan-2019 Instruction Type:Patient Education Patient Instructions Indication:Hypothyroidism Start:13-Jan-2019 Instruction Type:Provider Instructions for Treatment How to access health informa tion online Indication:Well woman exam with routine gynecological exam Start:14-Jul-2018 Instruction Type:Patient Education How to access health informa tion online - Detail Indication:Well woman exam with routine gynecological exam Start:14-Jul-2018 Instruction Type:Patient Education Patient Instructions Indication:Well woman exam with routine gynecological exam Start:14-Jul-2018 Instruction Type:Provider Instructions for Treatment How to access health informa tion online Indication:Well woman exam with routine gynecological exam Start:18-Jun-2017 Instruction Type:Patient Education How to access health informa tion online - Detail Indication:Well woman exam with routine gynecological exam Start:18-Jun-2017 Instruction Type:Patient Education Patient Instructions Indication:Well woman exam with routine gynecological exam Start:18-Jun-2017 Instruction Type:Provider Instructions for Treatment How to access health informa tion online - Detail Indication:Hypercholesterolemia Start:17-Dec-2016 Instruction Type:Patient Education How to access health informa tion online Indication:Hypercholesterolemia Start:17-Dec-2016 Instruction Type:Patient Education How to access health informa tion online - Detail Indication:Hypercholesterolemia Start:17-Dec-2016 Instruction Type:Patient Education How to access health informa tion online Indication:Hypothyroidism Start:18-Jun-2016 Instruction Type:Patient Education How to access health informa tion online - Detail Indication:Hypothyroidism Start:18-Jun-2016 Instruction Type:Patient Education Patient Instructions Indication:Hypothyroidism Start:18-Jun-2016 Instruction Type:Provider Instructions for Treatment How to access health informa tion online Indication:Hypothyroidism Start:02-Dec-2015 Instruction Type:Patient Education How to access health informa tion online - Detail Indication:Hypothyroidism Start:02-Dec-2015 Instruction Type:Patient Education Patient Instructions Indication:Hypothyroidism Start:02-Dec-2015 Instruction Type:Provider Instructions for Treatment Patient Instructions Indication:Hypothyroidism Start:18-Jun-2015 Instruction Type:Provider Instructions for Treatment Patient Instructions Indication:Hypoglycemia Start:30-Apr-2015 Instruction Type:Provider Instructions for Treatment How to access health informa tion online Indication:Hypothyroidism Start:24-Dec-2014 Instruction Type:Patient Education How to access health informa tion online - Detail Indication:Hypothyroidism Start:24-Dec-2014 Instruction Type:Patient Education Patient Instructions Indication:Hypothyroidism Start:24-Dec-2014 Instruction Type:Provider Instructions for Treatment Patient Instructions Indication:Sinusitis, acute Start:19-Mar-2014 Instruction Type:Provider Instructions for Treatment How to access health informa tion online Indication:Sinusitis, acute Start:19-Mar-2014 Instruction Type:Patient Education How to access health informa tion online - Detail Indication:Sinusitis, acute Start:19-Mar-2014 Instruction Type:Patient Education How to access health informa tion online Indication:Hypothyroidism Start:15-Jan-2014 Instruction Type:Patient Education How to access health informa tion online - Detail Indication:Hypothyroidism Start:15-Jan-2014 Instruction Type:Patient Education Patient Instructions Indication:Hypothyroidism Start:15-Jan-2014 Instruction Type:Provider Instructions for Treatment Patient Instructions Indication:Hypothyroidism Start:17-Jul-2013 Instruction Type:Provider Instructions for Treatment Patient Instructions Indication:Sinusitis, acute Start:30-Mar-2013 Instruction Type:Provider Instructions for Treatment Patient Instructions Indication:Cough Start:30-Mar-2013 Instruction Type:Provider Instructions for Treatment Patient Instructions Indication:Well woman exam with routine gynecological exam Start:02-Jan-2013 Instruction Type:Provider Instructions for Treatment [facility]; [facility] Work Phone: Instructions* Name Dates Details Patient Instructions Indication:Current nonsmoker (Renamed from Current non-smoker) Start:09-Jan-2022 Instruction Type:Provider Instructions for Treatment How to Access Health Informa tion Online using Patient Portal and [employer] Apps Indication:Current nonsmoker (Renamed from Current non-smoker) Start:09-Jan-2022 Instruction Type:Patient Education Patient Instructions Indication:Current nonsmoker (Renamed from Current non-smoker) Start:04-Sep-2021 Instruction Type:Provider Instructions for Treatment How to Access Health Informa tion Online using Patient Portal and [employer] Apps Indication:Current nonsmoker (Renamed from Current non-smoker) Start:04-Sep-2021 Instruction Type:Patient Education Patient Instructions Indication:Sciatica of right side Start:27-Feb-2021 Instruction Type:Provider Instructions for Treatment How to Access Health Informa tion Online using Patient Portal and [employer] Apps Indication:Sciatica of right side Start:27-Feb-2021 Instruction Type:Patient Education Patient Instructions Indication:Sciatica of right side Start:27-Jan-2021 Instruction Type:Provider Instructions for Treatment How to Access Health Informa tion Online using Patient Portal and [employer] Apps Indication:Sciatica of right side Start:27-Jan-2021 Instruction Type:Patient Education How to access health informa tion online Indication:Exposure to SARS virus Start:26-Apr-2020 Instruction Type:Patient Education How to access health informa tion online - Detail Indication:Exposure to SARS virus Start:26-Apr-2020 Instruction Type:Patient Education Patient Instructions Indication:Exposure to SARS virus Start:26-Apr-2020 Instruction Type:Provider Instructions for Treatment How to access health informa tion online Indication:Hypercholesterolemia Start:02-Jan-2020 Instruction Type:Patient Education How to access health informa tion online - Detail Indication:Hypercholesterolemia Start:02-Jan-2020 Instruction Type:Patient Education Patient Instructions Indication:Hypercholesterolemia Start:02-Jan-2020 Instruction Type:Provider Instructions for Treatment How to access health informa tion online Indication:BMI 23.0-23.9, adult Start:10-Jul-2019 Instruction Type:Patient Education How to access health informa tion online - Detail Indication:BMI 23.0-23.9, adult Start:10-Jul-2019 Instruction Type:Patient Education Patient Instructions Indication:BMI 23.0-23.9, adult Start:10-Jul-2019 Instruction Type:Provider Instructions for Treatment How to access health informa tion online Indication:Hypothyroidism Start:13-Jan-2019 Instruction Type:Patient Education How to access health informa tion online - Detail Indication:Hypothyroidism Start:13-Jan-2019 Instruction Type:Patient Education Patient Instructions Indication:Hypothyroidism Start:13-Jan-2019 Instruction Type:Provider Instructions for Treatment How to access health informa tion online Indication:Well woman exam with routine gynecological exam Start:14-Jul-2018 Instruction Type:Patient Education How to access health informa tion online - Detail Indication:Well woman exam with routine gynecological exam Start:14-Jul-2018 Instruction Type:Patient Education Patient Instructions Indication:Well woman exam with routine gynecological exam Start:14-Jul-2018 Instruction Type:Provider Instructions for Treatment How to access health informa tion online Indication:Well woman exam with routine gynecological exam Start:18-Jun-2017 Instruction Type:Patient Education How to access health informa tion online - Detail Indication:Well woman exam with routine gynecological exam Start:18-Jun-2017 Instruction Type:Patient Education Patient Instructions Indication:Well woman exam with routine gynecological exam Start:18-Jun-2017 Instruction Type:Provider Instructions for Treatment How to access health informa tion online - Detail Indication:Hypercholesterolemia Start:17-Dec-2016 Instruction Type:Patient Education How to access health informa tion online Indication:Hypercholesterolemia Start:17-Dec-2016 Instruction Type:Patient Education How to access health informa tion online - Detail Indication:Hypercholesterolemia Start:17-Dec-2016 Instruction Type:Patient Education How to access health informa tion online Indication:Hypothyroidism Start:18-Jun-2016 Instruction Type:Patient Education How to access health informa tion online - Detail Indication:Hypothyroidism Start:18-Jun-2016 Instruction Type:Patient Education Patient Instructions Indication:Hypothyroidism Start:18-Jun-2016 Instruction Type:Provider Instructions for Treatment How to access health informa tion online Indication:Hypothyroidism Start:02-Dec-2015 Instruction Type:Patient Education How to access health informa tion online - Detail Indication:Hypothyroidism Start:02-Dec-2015 Instruction Type:Patient Education Patient Instructions Indication:Hypothyroidism Start:02-Dec-2015 Instruction Type:Provider Instructions for Treatment Patient Instructions Indication:Hypothyroidism Start:18-Jun-2015 Instruction Type:Provider Instructions for Treatment Patient Instructions Indication:Hypoglycemia Start:30-Apr-2015 Instruction Type:Provider Instructions for Treatment How to access health informa tion online Indication:Hypothyroidism Start:24-Dec-2014 Instruction Type:Patient Education How to access health informa tion online - Detail Indication:Hypothyroidism Start:24-Dec-2014 Instruction Type:Patient Education Patient Instructions Indication:Hypothyroidism Start:24-Dec-2014 Instruction Type:Provider Instructions for Treatment Patient Instructions Indication:Sinusitis, acute Start:19-Mar-2014 Instruction Type:Provider Instructions for Treatment How to access health informa tion online Indication:Sinusitis, acute Start:19-Mar-2014 Instruction Type:Patient Education How to access health informa tion online - Detail Indication:Sinusitis, acute Start:19-Mar-2014 Instruction Type:Patient Education How to access health informa tion online Indication:Hypothyroidism Start:15-Jan-2014 Instruction Type:Patient Education How to access health informa tion online - Detail Indication:Hypothyroidism Start:15-Jan-2014 Instruction Type:Patient Education Patient Instructions Indication:Hypothyroidism Start:15-Jan-2014 Instruction Type:Provider Instructions for Treatment Patient Instructions Indication:Hypothyroidism Start:17-Jul-2013 Instruction Type:Provider Instructions for Treatment Patient Instructions Indication:Sinusitis, acute Start:30-Mar-2013 Instruction Type:Provider Instructions for Treatment Patient Instructions Indication:Cough Start:30-Mar-2013 Instruction Type:Provider Instructions for Treatment Patient Instructions Indication:Well woman exam with routine gynecological exam Start:02-Jan-2013 Instruction Type:Provider Instructions for Treatment [facility]; [facility] Work Phone: Instructions* Name Dates Details Patient Instructions Indication:Current nonsmoker (Renamed from Current non-smoker) Start:09-Jan-2022 Instruction Type:Provider Instructions for Treatment How to Access Health Informa tion Online using Patient Portal and [employer] Apps Indication:Current nonsmoker (Renamed from Current non-smoker) Start:09-Jan-2022 Instruction Type:Patient Education Patient Instructions Indication:Current nonsmoker (Renamed from Current non-smoker) Start:04-Sep-2021 Instruction Type:Provider Instructions for Treatment How to Access Health Informa tion Online using Patient Portal and [employer] Apps Indication:Current nonsmoker (Renamed from Current non-smoker) Start:04-Sep-2021 Instruction Type:Patient Education Patient Instructions Indication:Sciatica of right side Start:27-Feb-2021 Instruction Type:Provider Instructions for Treatment How to Access Health Informa tion Online using Patient Portal and [employer] Apps Indication:Sciatica of right side Start:27-Feb-2021 Instruction Type:Patient Education Patient Instructions Indication:Sciatica of right side Start:27-Jan-2021 Instruction Type:Provider Instructions for Treatment How to Access Health Informa tion Online using Patient Portal and [employer] Apps Indication:Sciatica of right side Start:27-Jan-2021 Instruction Type:Patient Education How to access health informa tion online Indication:Exposure to SARS virus Start:26-Apr-2020 Instruction Type:Patient Education How to access health informa tion online - Detail Indication:Exposure to SARS virus Start:26-Apr-2020 Instruction Type:Patient Education Patient Instructions Indication:Exposure to SARS virus Start:26-Apr-2020 Instruction Type:Provider Instructions for Treatment How to access health informa tion online Indication:Hypercholesterolemia Start:02-Jan-2020 Instruction Type:Patient Education How to access health informa tion online - Detail Indication:Hypercholesterolemia Start:02-Jan-2020 Instruction Type:Patient Education Patient Instructions Indication:Hypercholesterolemia Start:02-Jan-2020 Instruction Type:Provider Instructions for Treatment How to access health informa tion online Indication:BMI 23.0-23.9, adult Start:10-Jul-2019 Instruction Type:Patient Education How to access health informa tion online - Detail Indication:BMI 23.0-23.9, adult Start:10-Jul-2019 Instruction Type:Patient Education Patient Instructions Indication:BMI 23.0-23.9, adult Start:10-Jul-2019 Instruction Type:Provider Instructions for Treatment How to access health informa tion online Indication:Hypothyroidism Start:13-Jan-2019 Instruction Type:Patient Education How to access health informa tion online - Detail Indication:Hypothyroidism Start:13-Jan-2019 Instruction Type:Patient Education Patient Instructions Indication:Hypothyroidism Start:13-Jan-2019 Instruction Type:Provider Instructions for Treatment How to access health informa tion online Indication:Well woman exam with routine gynecological exam Start:14-Jul-2018 Instruction Type:Patient Education How to access health informa tion online - Detail Indication:Well woman exam with routine gynecological exam Start:14-Jul-2018 Instruction Type:Patient Education Patient Instructions Indication:Well woman exam with routine gynecological exam Start:14-Jul-2018 Instruction Type:Provider Instructions for Treatment How to access health informa tion online Indication:Well woman exam with routine gynecological exam Start:18-Jun-2017 Instruction Type:Patient Education How to access health informa tion online - Detail Indication:Well woman exam with routine gynecological exam Start:18-Jun-2017 Instruction Type:Patient Education Patient Instructions Indication:Well woman exam with routine gynecological exam Start:18-Jun-2017 Instruction Type:Provider Instructions for Treatment How to access health informa tion online - Detail Indication:Hypercholesterolemia Start:17-Dec-2016 Instruction Type:Patient Education How to access health informa tion online Indication:Hypercholesterolemia Start:17-Dec-2016 Instruction Type:Patient Education How to access health informa tion online - Detail Indication:Hypercholesterolemia Start:17-Dec-2016 Instruction Type:Patient Education How to access health informa tion online Indication:Hypothyroidism Start:18-Jun-2016 Instruction Type:Patient Education How to access health informa tion online - Detail Indication:Hypothyroidism Start:18-Jun-2016 Instruction Type:Patient Education Patient Instructions Indication:Hypothyroidism Start:18-Jun-2016 Instruction Type:Provider Instructions for Treatment How to access health informa tion online Indication:Hypothyroidism Start:02-Dec-2015 Instruction Type:Patient Education How to access health informa tion online - Detail Indication:Hypothyroidism Start:02-Dec-2015 Instruction Type:Patient Education Patient Instructions Indication:Hypothyroidism Start:02-Dec-2015 Instruction Type:Provider Instructions for Treatment Patient Instructions Indication:Hypothyroidism Start:18-Jun-2015 Instruction Type:Provider Instructions for Treatment Patient Instructions Indication:Hypoglycemia Start:30-Apr-2015 Instruction Type:Provider Instructions for Treatment How to access health informa tion online Indication:Hypothyroidism Start:24-Dec-2014 Instruction Type:Patient Education How to access health informa tion online - Detail Indication:Hypothyroidism Start:24-Dec-2014 Instruction Type:Patient Education Patient Instructions Indication:Hypothyroidism Start:24-Dec-2014 Instruction Type:Provider Instructions for Treatment Patient Instructions Indication:Sinusitis, acute Start:19-Mar-2014 Instruction Type:Provider Instructions for Treatment How to access health informa tion online Indication:Sinusitis, acute Start:19-Mar-2014 Instruction Type:Patient Education How to access health informa tion online - Detail Indication:Sinusitis, acute Start:19-Mar-2014 Instruction Type:Patient Education How to access health informa tion online Indication:Hypothyroidism Start:15-Jan-2014 Instruction Type:Patient Education How to access health informa tion online - Detail Indication:Hypothyroidism Start:15-Jan-2014 Instruction Type:Patient Education Patient Instructions Indication:Hypothyroidism Start:15-Jan-2014 Instruction Type:Provider Instructions for Treatment Patient Instructions Indication:Hypothyroidism Start:17-Jul-2013 Instruction Type:Provider Instructions for Treatment Patient Instructions Indication:Sinusitis, acute Start:30-Mar-2013 Instruction Type:Provider Instructions for Treatment Patient Instructions Indication:Cough Start:30-Mar-2013 Instruction Type:Provider Instructions for Treatment Patient Instructions Indication:Well woman exam with routine gynecological exam Start:02-Jan-2013 Instruction Type:Provider Instructions for Treatment [facility]; [facility] Work Phone: Instructions* Name Dates Details Patient Instructions Indication:Unspecified Diagnosis Start:22-May-2022 Instruction Type:Provider Instructions for Treatment How to Access Health Informa tion Online using Patient Portal and [employer] Apps Indication:Unspecified Diagnosis Start:22-May-2022 Instruction Type:Patient Education Patient Instructions Indication:Current nonsmoker (Renamed from Current non-smoker) Start:09-Jan-2022 Instruction Type:Provider Instructions for Treatment How to Access Health Informa tion Online using Patient Portal and [employer] Apps Indication:Current nonsmoker (Renamed from Current non-smoker) Start:09-Jan-2022 Instruction Type:Patient Education Patient Instructions Indication:Current nonsmoker (Renamed from Current non-smoker) Start:04-Sep-2021 Instruction Type:Provider Instructions for Treatment How to Access Health Informa tion Online using Patient Portal and [employer] Apps Indication:Current nonsmoker (Renamed from Current non-smoker) Start:04-Sep-2021 Instruction Type:Patient Education Patient Instructions Indication:Sciatica of right side Start:27-Feb-2021 Instruction Type:Provider Instructions for Treatment How to Access Health Informa tion Online using Patient Portal and [employer] Apps Indication:Sciatica of right side Start:27-Feb-2021 Instruction Type:Patient Education Patient Instructions Indication:Sciatica of right side Start:27-Jan-2021 Instruction Type:Provider Instructions for Treatment How to Access Health Informa tion Online using Patient Portal and [employer] Apps Indication:Sciatica of right side Start:27-Jan-2021 Instruction Type:Patient Education How to access health informa tion online Indication:Exposure to SARS virus Start:26-Apr-2020 Instruction Type:Patient Education How to access health informa tion online - Detail Indication:Exposure to SARS virus Start:26-Apr-2020 Instruction Type:Patient Education Patient Instructions Indication:Exposure to SARS virus Start:26-Apr-2020 Instruction Type:Provider Instructions for Treatment How to access health informa tion online Indication:Hypercholesterolemia Start:02-Jan-2020 Instruction Type:Patient Education How to access health informa tion online - Detail Indication:Hypercholesterolemia Start:02-Jan-2020 Instruction Type:Patient Education Patient Instructions Indication:Hypercholesterolemia Start:02-Jan-2020 Instruction Type:Provider Instructions for Treatment How to access health informa tion online Indication:BMI 23.0-23.9, adult Start:10-Jul-2019 Instruction Type:Patient Education How to access health informa tion online - Detail Indication:BMI 23.0-23.9, adult Start:10-Jul-2019 Instruction Type:Patient Education Patient Instructions Indication:BMI 23.0-23.9, adult Start:10-Jul-2019 Instruction Type:Provider Instructions for Treatment How to access health informa tion online Indication:Hypothyroidism Start:13-Jan-2019 Instruction Type:Patient Education How to access health informa tion online - Detail Indication:Hypothyroidism Start:13-Jan-2019 Instruction Type:Patient Education Patient Instructions Indication:Hypothyroidism Start:13-Jan-2019 Instruction Type:Provider Instructions for Treatment How to access health informa tion online Indication:Well woman exam with routine gynecological exam Start:14-Jul-2018 Instruction Type:Patient Education How to access health informa tion online - Detail Indication:Well woman exam with routine gynecological exam Start:14-Jul-2018 Instruction Type:Patient Education Patient Instructions Indication:Well woman exam with routine gynecological exam Start:14-Jul-2018 Instruction Type:Provider Instructions for Treatment How to access health informa tion online Indication:Well woman exam with routine gynecological exam Start:18-Jun-2017 Instruction Type:Patient Education How to access health informa tion online - Detail Indication:Well woman exam with routine gynecological exam Start:18-Jun-2017 Instruction Type:Patient Education Patient Instructions Indication:Well woman exam with routine gynecological exam Start:18-Jun-2017 Instruction Type:Provider Instructions for Treatment How to access health informa tion online - Detail Indication:Hypercholesterolemia Start:17-Dec-2016 Instruction Type:Patient Education How to access health informa tion online Indication:Hypercholesterolemia Start:17-Dec-2016 Instruction Type:Patient Education How to access health informa tion online - Detail Indication:Hypercholesterolemia Start:17-Dec-2016 Instruction Type:Patient Education How to access health informa tion online Indication:Hypothyroidism Start:18-Jun-2016 Instruction Type:Patient Education How to access health informa tion online - Detail Indication:Hypothyroidism Start:18-Jun-2016 Instruction Type:Patient Education Patient Instructions Indication:Hypothyroidism Start:18-Jun-2016 Instruction Type:Provider Instructions for Treatment How to access health informa tion online Indication:Hypothyroidism Start:02-Dec-2015 Instruction Type:Patient Education How to access health informa tion online - Detail Indication:Hypothyroidism Start:02-Dec-2015 Instruction Type:Patient Education Patient Instructions Indication:Hypothyroidism Start:02-Dec-2015 Instruction Type:Provider Instructions for Treatment Patient Instructions Indication:Hypothyroidism Start:18-Jun-2015 Instruction Type:Provider Instructions for Treatment Patient Instructions Indication:Hypoglycemia Start:30-Apr-2015 Instruction Type:Provider Instructions for Treatment How to access health informa tion online Indication:Hypothyroidism Start:24-Dec-2014 Instruction Type:Patient Education How to access health informa tion online - Detail Indication:Hypothyroidism Start:24-Dec-2014 Instruction Type:Patient Education Patient Instructions Indication:Hypothyroidism Start:24-Dec-2014 Instruction Type:Provider Instructions for Treatment Patient Instructions Indication:Sinusitis, acute Start:19-Mar-2014 Instruction Type:Provider Instructions for Treatment How to access health informa tion online Indication:Sinusitis, acute Start:19-Mar-2014 Instruction Type:Patient Education How to access health informa tion online - Detail Indication:Sinusitis, acute Start:19-Mar-2014 Instruction Type:Patient Education How to access health informa tion online Indication:Hypothyroidism Start:15-Jan-2014 Instruction Type:Patient Education How to access health informa tion online - Detail Indication:Hypothyroidism Start:15-Jan-2014 Instruction Type:Patient Education Patient Instructions Indication:Hypothyroidism Start:15-Jan-2014 Instruction Type:Provider Instructions for Treatment Patient Instructions Indication:Hypothyroidism Start:17-Jul-2013 Instruction Type:Provider Instructions for Treatment Patient Instructions Indication:Sinusitis, acute Start:30-Mar-2013 Instruction Type:Provider Instructions for Treatment Patient Instructions Indication:Cough Start:30-Mar-2013 Instruction Type:Provider Instructions for Treatment Patient Instructions Indication:Well woman exam with routine gynecological exam Start:02-Jan-2013 Instruction Type:Provider Instructions for Treatment [facility]; [facility] Work Phone: Instructions* Name Dates Details Patient Instructions Indication:Unspecified Diagnosis Start:22-May-2022 Instruction Type:Provider Instructions for Treatment How to Access Health Informa tion Online using Patient Portal and [employer] Indication:Unspecified Diagnosis Start:22-May-2022 Instruction Type:Patient Education Patient Instructions Indication:Current nonsmoker (Renamed from Current non-smoker) Start:09-Jan-2022 Instruction Type:Provider Instructions for Treatment How to Access Health Informa tion Online using Patient Portal and [employer] Indication:Current nonsmoker (Renamed from Current non-smoker) Start:09-Jan-2022 Instruction Type:Patient Education Patient Instructions Indication:Current nonsmoker (Renamed from Current non-smoker) Start:04-Sep-2021 Instruction Type:Provider Instructions for Treatment How to Access Health Informa tion Online using Patient Portal and [employer] Apps Indication:Current nonsmoker (Renamed from Current non-smoker) Start:04-Sep-2021 Instruction Type:Patient Education Patient Instructions Indication:Sciatica of right side Start:27-Feb-2021 Instruction Type:Provider Instructions for Treatment How to Access Health Informa tion Online using Patient Portal and [employer] Indication:Sciatica of right side Start:27-Feb-2021 Instruction Type:Patient Education Patient Instructions Indication:Sciatica of right side Start:27-Jan-2021 Instruction Type:Provider Instructions for Treatment How to Access Health Informa tion Online using Patient Portal and [employer] Apps Indication:Sciatica of right side Start:27-Jan-2021 Instruction Type:Patient Education How to access health informa tion online Indication:Exposure to SARS virus Start:26-Apr-2020 Instruction Type:Patient Education How to access health informa tion online - Detail Indication:Exposure to SARS virus Start:26-Apr-2020 Instruction Type:Patient Education Patient Instructions Indication:Exposure to SARS virus Start:26-Apr-2020 Instruction Type:Provider Instructions for Treatment How to access health informa tion online Indication:Hypercholesterolemia Start:02-Jan-2020 Instruction Type:Patient Education How to access health informa tion online - Detail Indication:Hypercholesterolemia Start:02-Jan-2020 Instruction Type:Patient Education Patient Instructions Indication:Hypercholesterolemia Start:02-Jan-2020 Instruction Type:Provider Instructions for Treatment How to access health informa tion online Indication:BMI 23.0-23.9, adult Start:10-Jul-2019 Instruction Type:Patient Education How to access health informa tion online - Detail Indication:BMI 23.0-23.9, adult Start:10-Jul-2019 Instruction Type:Patient Education Patient Instructions Indication:BMI 23.0-23.9, adult Start:10-Jul-2019 Instruction Type:Provider Instructions for Treatment How to access health informa tion online Indication:Hypothyroidism Start:13-Jan-2019 Instruction Type:Patient Education How to access health informa tion online - Detail Indication:Hypothyroidism Start:13-Jan-2019 Instruction Type:Patient Education Patient Instructions Indication:Hypothyroidism Start:13-Jan-2019 Instruction Type:Provider Instructions for Treatment How to access health informa tion online Indication:Well woman exam with routine gynecological exam Start:14-Jul-2018 Instruction Type:Patient Education How to access health informa tion online - Detail Indication:Well woman exam with routine gynecological exam Start:14-Jul-2018 Instruction Type:Patient Education Patient Instructions Indication:Well woman exam with routine gynecological exam Start:14-Jul-2018 Instruction Type:Provider Instructions for Treatment How to access health informa tion online Indication:Well woman exam with routine gynecological exam Start:18-Jun-2017 Instruction Type:Patient Education How to access health informa tion online - Detail Indication:Well woman exam with routine gynecological exam Start:18-Jun-2017 Instruction Type:Patient Education Patient Instructions Indication:Well woman exam with routine gynecological exam Start:18-Jun-2017 Instruction Type:Provider Instructions for Treatment How to access health informa tion online - Detail Indication:Hypercholesterolemia Start:17-Dec-2016 Instruction Type:Patient Education How to access health informa tion online Indication:Hypercholesterolemia Start:17-Dec-2016 Instruction Type:Patient Education How to access health informa tion online - Detail Indication:Hypercholesterolemia Start:17-Dec-2016 Instruction Type:Patient Education How to access health informa tion online Indication:Hypothyroidism Start:18-Jun-2016 Instruction Type:Patient Education How to access health informa tion online - Detail Indication:Hypothyroidism Start:18-Jun-2016 Instruction Type:Patient Education Patient Instructions Indication:Hypothyroidism Start:18-Jun-2016 Instruction Type:Provider Instructions for Treatment How to access health informa tion online Indication:Hypothyroidism Start:02-Dec-2015 Instruction Type:Patient Education How to access health informa tion online - Detail Indication:Hypothyroidism Start:02-Dec-2015 Instruction Type:Patient Education Patient Instructions Indication:Hypothyroidism Start:02-Dec-2015 Instruction Type:Provider Instructions for Treatment Patient Instructions Indication:Hypothyroidism Start:18-Jun-2015 Instruction Type:Provider Instructions for Treatment Patient Instructions Indication:Hypoglycemia Start:30-Apr-2015 Instruction Type:Provider Instructions for Treatment How to access health informa tion online Indication:Hypothyroidism Start:24-Dec-2014 Instruction Type:Patient Education How to access health informa tion online - Detail Indication:Hypothyroidism Start:24-Dec-2014 Instruction Type:Patient Education Patient Instructions Indication:Hypothyroidism Start:24-Dec-2014 Instruction Type:Provider Instructions for Treatment Patient Instructions Indication:Sinusitis, acute Start:19-Mar-2014 Instruction Type:Provider Instructions for Treatment How to access health informa tion online Indication:Sinusitis, acute Start:19-Mar-2014 Instruction Type:Patient Education How to access health informa tion online - Detail Indication:Sinusitis, acute Start:19-Mar-2014 Instruction Type:Patient Education How to access health informa tion online Indication:Hypothyroidism Start:15-Jan-2014 Instruction Type:Patient Education How to access health informa tion online - Detail Indication:Hypothyroidism Start:15-Jan-2014 Instruction Type:Patient Education Patient Instructions Indication:Hypothyroidism Start:15-Jan-2014 Instruction Type:Provider Instructions for Treatment Patient Instructions Indication:Hypothyroidism Start:17-Jul-2013 Instruction Type:Provider Instructions for Treatment Patient Instructions Indication:Sinusitis, acute Start:30-Mar-2013 Instruction Type:Provider Instructions for Treatment Patient Instructions Indication:Cough Start:30-Mar-2013 Instruction Type:Provider Instructions for Treatment Patient Instructions Indication:Well woman exam with routine gynecological exam Start:02-Jan-2013 Instruction Type:Provider Instructions for Treatment [facility]; [facility] Work Phone: Instructions* Name Dates Details Patient Instructions Indication:Current nonsmoker (Renamed from Current non-smoker) Start:05-Jun-2022 Instruction Type:Provider Instructions for Treatment How to Access Health Informa tion Online using Patient Portal and [employer] Indication:Current nonsmoker (Renamed from Current non-smoker) Start:05-Jun-2022 Instruction Type:Patient Education Patient Instructions Indication:Unspecified Diagnosis Start:22-May-2022 Instruction Type:Provider Instructions for Treatment How to Access Health Informa tion Online using Patient Portal and [employer] Apps Indication:Unspecified Diagnosis Start:22-May-2022 Instruction Type:Patient Education Patient Instructions Indication:Current nonsmoker (Renamed from Current non-smoker) Start:09-Jan-2022 Instruction Type:Provider Instructions for Treatment How to Access Health Informa tion Online using Patient Portal and [employer] Apps Indication:Current nonsmoker (Renamed from Current non-smoker) Start:09-Jan-2022 Instruction Type:Patient Education Patient Instructions Indication:Current nonsmoker (Renamed from Current non-smoker) Start:04-Sep-2021 Instruction Type:Provider Instructions for Treatment How to Access Health Informa tion Online using Patient Portal and [employer] Apps Indication:Current nonsmoker (Renamed from Current non-smoker) Start:04-Sep-2021 Instruction Type:Patient Education Patient Instructions Indication:Sciatica of right side Start:27-Feb-2021 Instruction Type:Provider Instructions for Treatment How to Access Health Informa tion Online using Patient Portal and [employer] Apps Indication:Sciatica of right side Start:27-Feb-2021 Instruction Type:Patient Education Patient Instructions Indication:Sciatica of right side Start:27-Jan-2021 Instruction Type:Provider Instructions for Treatment How to Access Health Informa tion Online using Patient Portal and [employer] Apps Indication:Sciatica of right side Start:27-Jan-2021 Instruction Type:Patient Education How to access health informa tion online Indication:Exposure to SARS virus Start:26-Apr-2020 Instruction Type:Patient Education How to access health informa tion online - Detail Indication:Exposure to SARS virus Start:26-Apr-2020 Instruction Type:Patient Education Patient Instructions Indication:Exposure to SARS virus Start:26-Apr-2020 Instruction Type:Provider Instructions for Treatment How to access health informa tion online Indication:Hypercholesterolemia Start:02-Jan-2020 Instruction Type:Patient Education How to access health informa tion online - Detail Indication:Hypercholesterolemia Start:02-Jan-2020 Instruction Type:Patient Education Patient Instructions Indication:Hypercholesterolemia Start:02-Jan-2020 Instruction Type:Provider Instructions for Treatment How to access health informa tion online Indication:BMI 23.0-23.9, adult Start:10-Jul-2019 Instruction Type:Patient Education How to access health informa tion online - Detail Indication:BMI 23.0-23.9, adult Start:10-Jul-2019 Instruction Type:Patient Education Patient Instructions Indication:BMI 23.0-23.9, adult Start:10-Jul-2019 Instruction Type:Provider Instructions for Treatment How to access health informa tion online Indication:Hypothyroidism Start:13-Jan-2019 Instruction Type:Patient Education How to access health informa tion online - Detail Indication:Hypothyroidism Start:13-Jan-2019 Instruction Type:Patient Education Patient Instructions Indication:Hypothyroidism Start:13-Jan-2019 Instruction Type:Provider Instructions for Treatment How to access health informa tion online Indication:Well woman exam with routine gynecological exam Start:14-Jul-2018 Instruction Type:Patient Education How to access health informa tion online - Detail Indication:Well woman exam with routine gynecological exam Start:14-Jul-2018 Instruction Type:Patient Education Patient Instructions Indication:Well woman exam with routine gynecological exam Start:14-Jul-2018 Instruction Type:Provider Instructions for Treatment How to access health informa tion online Indication:Well woman exam with routine gynecological exam Start:18-Jun-2017 Instruction Type:Patient Education How to access health informa tion online - Detail Indication:Well woman exam with routine gynecological exam Start:18-Jun-2017 Instruction Type:Patient Education Patient Instructions Indication:Well woman exam with routine gynecological exam Start:18-Jun-2017 Instruction Type:Provider Instructions for Treatment How to access health informa tion online - Detail Indication:Hypercholesterolemia Start:17-Dec-2016 Instruction Type:Patient Education How to access health informa tion online Indication:Hypercholesterolemia Start:17-Dec-2016 Instruction Type:Patient Education How to access health informa tion online - Detail Indication:Hypercholesterolemia Start:17-Dec-2016 Instruction Type:Patient Education How to access health informa tion online Indication:Hypothyroidism Start:18-Jun-2016 Instruction Type:Patient Education How to access health informa tion online - Detail Indication:Hypothyroidism Start:18-Jun-2016 Instruction Type:Patient Education Patient Instructions Indication:Hypothyroidism Start:18-Jun-2016 Instruction Type:Provider Instructions for Treatment How to access health informa tion online Indication:Hypothyroidism Start:02-Dec-2015 Instruction Type:Patient Education How to access health informa tion online - Detail Indication:Hypothyroidism Start:02-Dec-2015 Instruction Type:Patient Education Patient Instructions Indication:Hypothyroidism Start:02-Dec-2015 Instruction Type:Provider Instructions for Treatment Patient Instructions Indication:Hypothyroidism Start:18-Jun-2015 Instruction Type:Provider Instructions for Treatment Patient Instructions Indication:Hypoglycemia Start:30-Apr-2015 Instruction Type:Provider Instructions for Treatment How to access health informa tion online Indication:Hypothyroidism Start:24-Dec-2014 Instruction Type:Patient Education How to access health informa tion online - Detail Indication:Hypothyroidism Start:24-Dec-2014 Instruction Type:Patient Education Patient Instructions Indication:Hypothyroidism Start:24-Dec-2014 Instruction Type:Provider Instructions for Treatment Patient Instructions Indication:Sinusitis, acute Start:19-Mar-2014 Instruction Type:Provider Instructions for Treatment How to access health informa tion online Indication:Sinusitis, acute Start:19-Mar-2014 Instruction Type:Patient Education How to access health informa tion online - Detail Indication:Sinusitis, acute Start:19-Mar-2014 Instruction Type:Patient Education How to access health informa tion online Indication:Hypothyroidism Start:15-Jan-2014 Instruction Type:Patient Education How to access health informa tion online - Detail Indication:Hypothyroidism Start:15-Jan-2014 Instruction Type:Patient Education Patient Instructions Indication:Hypothyroidism Start:15-Jan-2014 Instruction Type:Provider Instructions for Treatment Patient Instructions Indication:Hypothyroidism Start:17-Jul-2013 Instruction Type:Provider Instructions for Treatment Patient Instructions Indication:Sinusitis, acute Start:30-Mar-2013 Instruction Type:Provider Instructions for Treatment Patient Instructions Indication:Cough Start:30-Mar-2013 Instruction Type:Provider Instructions for Treatment Patient Instructions Indication:Well woman exam with routine gynecological exam Start:02-Jan-2013 Instruction Type:Provider Instructions for Treatment [facility]; [facility] Work Phone: Instructions* Name Dates Details Patient Instructions Indication:BMI 24.0-24.9, adult Start:18-Aug-2022 Instruction Type:Provider Instructions for Treatment How to Access Health Informa tion Online using Patient Portal and [employer] Apps Indication:BMI 24.0-24.9, adult Start:18-Aug-2022 Instruction Type:Patient Education Patient Instructions Indication:Current nonsmoker (Renamed from Current non-smoker) Start:05-Jun-2022 Instruction Type:Provider Instructions for Treatment How to Access Health Informa tion Online using Patient Portal and [employer] Apps Indication:Current nonsmoker (Renamed from Current non-smoker) Start:05-Jun-2022 Instruction Type:Patient Education Patient Instructions Indication:Unspecified Diagnosis Start:22-May-2022 Instruction Type:Provider Instructions for Treatment How to Access Health Informa tion Online using Patient Portal and [employer] Apps Indication:Unspecified Diagnosis Start:22-May-2022 Instruction Type:Patient Education Patient Instructions Indication:Current nonsmoker (Renamed from Current non-smoker) Start:09-Jan-2022 Instruction Type:Provider Instructions for Treatment How to Access Health Informa tion Online using Patient Portal and [employer] Apps Indication:Current nonsmoker (Renamed from Current non-smoker) Start:09-Jan-2022 Instruction Type:Patient Education Patient Instructions Indication:Current nonsmoker (Renamed from Current non-smoker) Start:04-Sep-2021 Instruction Type:Provider Instructions for Treatment How to Access Health Informa tion Online using Patient Portal and [employer] Apps Indication:Current nonsmoker (Renamed from Current non-smoker) Start:04-Sep-2021 Instruction Type:Patient Education Patient Instructions Indication:Sciatica of right side Start:27-Feb-2021 Instruction Type:Provider Instructions for Treatment How to Access Health Informa tion Online using Patient Portal and [employer] Apps Indication:Sciatica of right side Start:27-Feb-2021 Instruction Type:Patient Education Patient Instructions Indication:Sciatica of right side Start:27-Jan-2021 Instruction Type:Provider Instructions for Treatment How to Access Health Informa tion Online using Patient Portal and [employer] Apps Indication:Sciatica of right side Start:27-Jan-2021 Instruction Type:Patient Education How to access health informa tion online Indication:Exposure to SARS virus Start:26-Apr-2020 Instruction Type:Patient Education How to access health informa tion online - Detail Indication:Exposure to SARS virus Start:26-Apr-2020 Instruction Type:Patient Education Patient Instructions Indication:Exposure to SARS virus Start:26-Apr-2020 Instruction Type:Provider Instructions for Treatment How to access health informa tion online Indication:Hypercholesterolemia Start:02-Jan-2020 Instruction Type:Patient Education How to access health informa tion online - Detail Indication:Hypercholesterolemia Start:02-Jan-2020 Instruction Type:Patient Education Patient Instructions Indication:Hypercholesterolemia Start:02-Jan-2020 Instruction Type:Provider Instructions for Treatment How to access health informa tion online Indication:BMI 23.0-23.9, adult Start:10-Jul-2019 Instruction Type:Patient Education How to access health informa tion online - Detail Indication:BMI 23.0-23.9, adult Start:10-Jul-2019 Instruction Type:Patient Education Patient Instructions Indication:BMI 23.0-23.9, adult Start:10-Jul-2019 Instruction Type:Provider Instructions for Treatment How to access health informa tion online Indication:Hypothyroidism Start:13-Jan-2019 Instruction Type:Patient Education How to access health informa tion online - Detail Indication:Hypothyroidism Start:13-Jan-2019 Instruction Type:Patient Education Patient Instructions Indication:Hypothyroidism Start:13-Jan-2019 Instruction Type:Provider Instructions for Treatment How to access health informa tion online Indication:Well woman exam with routine gynecological exam Start:14-Jul-2018 Instruction Type:Patient Education How to access health informa tion online - Detail Indication:Well woman exam with routine gynecological exam Start:14-Jul-2018 Instruction Type:Patient Education Patient Instructions Indication:Well woman exam with routine gynecological exam Start:14-Jul-2018 Instruction Type:Provider Instructions for Treatment How to access health informa tion online Indication:Well woman exam with routine gynecological exam Start:18-Jun-2017 Instruction Type:Patient Education How to access health informa tion online - Detail Indication:Well woman exam with routine gynecological exam Start:18-Jun-2017 Instruction Type:Patient Education Patient Instructions Indication:Well woman exam with routine gynecological exam Start:18-Jun-2017 Instruction Type:Provider Instructions for Treatment How to access health informa tion online - Detail Indication:Hypercholesterolemia Start:17-Dec-2016 Instruction Type:Patient Education How to access health informa tion online Indication:Hypercholesterolemia Start:17-Dec-2016 Instruction Type:Patient Education How to access health informa tion online - Detail Indication:Hypercholesterolemia Start:17-Dec-2016 Instruction Type:Patient Education How to access health informa tion online Indication:Hypothyroidism Start:18-Jun-2016 Instruction Type:Patient Education How to access health informa tion online - Detail Indication:Hypothyroidism Start:18-Jun-2016 Instruction Type:Patient Education Patient Instructions Indication:Hypothyroidism Start:18-Jun-2016 Instruction Type:Provider Instructions for Treatment How to access health informa tion online Indication:Hypothyroidism Start:02-Dec-2015 Instruction Type:Patient Education How to access health informa tion online - Detail Indication:Hypothyroidism Start:02-Dec-2015 Instruction Type:Patient Education Patient Instructions Indication:Hypothyroidism Start:02-Dec-2015 Instruction Type:Provider Instructions for Treatment Patient Instructions Indication:Hypothyroidism Start:18-Jun-2015 Instruction Type:Provider Instructions for Treatment Patient Instructions Indication:Hypoglycemia Start:30-Apr-2015 Instruction Type:Provider Instructions for Treatment How to access health informa tion online Indication:Hypothyroidism Start:24-Dec-2014 Instruction Type:Patient Education How to access health informa tion online - Detail Indication:Hypothyroidism Start:24-Dec-2014 Instruction Type:Patient Education Patient Instructions Indication:Hypothyroidism Start:24-Dec-2014 Instruction Type:Provider Instructions for Treatment Patient Instructions Indication:Sinusitis, acute Start:19-Mar-2014 Instruction Type:Provider Instructions for Treatment How to access health informa tion online Indication:Sinusitis, acute Start:19-Mar-2014 Instruction Type:Patient Education How to access health informa tion online - Detail Indication:Sinusitis, acute Start:19-Mar-2014 Instruction Type:Patient Education How to access health informa tion online Indication:Hypothyroidism Start:15-Jan-2014 Instruction Type:Patient Education How to access health informa tion online - Detail Indication:Hypothyroidism Start:15-Jan-2014 Instruction Type:Patient Education Patient Instructions Indication:Hypothyroidism Start:15-Jan-2014 Instruction Type:Provider Instructions for Treatment Patient Instructions Indication:Hypothyroidism Start:17-Jul-2013 Instruction Type:Provider Instructions for Treatment Patient Instructions Indication:Sinusitis, acute Start:30-Mar-2013 Instruction Type:Provider Instructions for Treatment Patient Instructions Indication:Cough Start:30-Mar-2013 Instruction Type:Provider Instructions for Treatment Patient Instructions Indication:Well woman exam with routine gynecological exam Start:02-Jan-2013 Instruction Type:Provider Instructions for Treatment [facility]; [facility] Work Phone: Instructions* Name Dates Details Patient Instructions Indication:Current nonsmoker (Renamed from Current non-smoker) Start:07-Dec-2022 Instruction Type:Provider Instructions for Treatment How to Access Health Informa tion Online using Patient Portal and [employer] Indication:Current nonsmoker (Renamed from Current non-smoker) Start:07-Dec-2022 Instruction Type:Patient Education Patient Instructions Indication:BMI 24.0-24.9, adult Start:18-Aug-2022 Instruction Type:Provider Instructions for Treatment How to Access Health Informa tion Online using Patient Portal and [employer] Apps Indication:BMI 24.0-24.9, adult Start:18-Aug-2022 Instruction Type:Patient Education Patient Instructions Indication:Current nonsmoker (Renamed from Current non-smoker) Start:05-Jun-2022 Instruction Type:Provider Instructions for Treatment How to Access Health Informa tion Online using Patient Portal and [employer] Apps Indication:Current nonsmoker (Renamed from Current non-smoker) Start:05-Jun-2022 Instruction Type:Patient Education Patient Instructions Indication:Unspecified Diagnosis Start:22-May-2022 Instruction Type:Provider Instructions for Treatment How to Access Health Informa tion Online using Patient Portal and [employer] Apps Indication:Unspecified Diagnosis Start:22-May-2022 Instruction Type:Patient Education Patient Instructions Indication:Current nonsmoker (Renamed from Current non-smoker) Start:09-Jan-2022 Instruction Type:Provider Instructions for Treatment How to Access Health Informa tion Online using Patient Portal and [employer] Apps Indication:Current nonsmoker (Renamed from Current non-smoker) Start:09-Jan-2022 Instruction Type:Patient Education Patient Instructions Indication:Current nonsmoker (Renamed from Current non-smoker) Start:04-Sep-2021 Instruction Type:Provider Instructions for Treatment How to Access Health Informa tion Online using Patient Portal and [employer] Apps Indication:Current nonsmoker (Renamed from Current non-smoker) Start:04-Sep-2021 Instruction Type:Patient Education Patient Instructions Indication:Sciatica of right side Start:27-Feb-2021 Instruction Type:Provider Instructions for Treatment How to Access Health Informa tion Online using Patient Portal and [employer] Apps Indication:Sciatica of right side Start:27-Feb-2021 Instruction Type:Patient Education Patient Instructions Indication:Sciatica of right side Start:27-Jan-2021 Instruction Type:Provider Instructions for Treatment How to Access Health Informa tion Online using Patient Portal and [employer] Apps Indication:Sciatica of right side Start:27-Jan-2021 Instruction Type:Patient Education How to access health informa tion online Indication:Exposure to SARS virus Start:26-Apr-2020 Instruction Type:Patient Education How to access health informa tion online - Detail Indication:Exposure to SARS virus Start:26-Apr-2020 Instruction Type:Patient Education Patient Instructions Indication:Exposure to SARS virus Start:26-Apr-2020 Instruction Type:Provider Instructions for Treatment How to access health informa tion online Indication:Hypercholesterolemia Start:02-Jan-2020 Instruction Type:Patient Education How to access health informa tion online - Detail Indication:Hypercholesterolemia Start:02-Jan-2020 Instruction Type:Patient Education Patient Instructions Indication:Hypercholesterolemia Start:02-Jan-2020 Instruction Type:Provider Instructions for Treatment How to access health informa tion online Indication:BMI 23.0-23.9, adult Start:10-Jul-2019 Instruction Type:Patient Education How to access health informa tion online - Detail Indication:BMI 23.0-23.9, adult Start:10-Jul-2019 Instruction Type:Patient Education Patient Instructions Indication:BMI 23.0-23.9, adult Start:10-Jul-2019 Instruction Type:Provider Instructions for Treatment How to access health informa tion online Indication:Hypothyroidism Start:13-Jan-2019 Instruction Type:Patient Education How to access health informa tion online - Detail Indication:Hypothyroidism Start:13-Jan-2019 Instruction Type:Patient Education Patient Instructions Indication:Hypothyroidism Start:13-Jan-2019 Instruction Type:Provider Instructions for Treatment How to access health informa tion online Indication:Well woman exam with routine gynecological exam Start:14-Jul-2018 Instruction Type:Patient Education How to access health informa tion online - Detail Indication:Well woman exam with routine gynecological exam Start:14-Jul-2018 Instruction Type:Patient Education Patient Instructions Indication:Well woman exam with routine gynecological exam Start:14-Jul-2018 Instruction Type:Provider Instructions for Treatment How to access health informa tion online Indication:Well woman exam with routine gynecological exam Start:18-Jun-2017 Instruction Type:Patient Education How to access health informa tion online - Detail Indication:Well woman exam with routine gynecological exam Start:18-Jun-2017 Instruction Type:Patient Education Patient Instructions Indication:Well woman exam with routine gynecological exam Start:18-Jun-2017 Instruction Type:Provider Instructions for Treatment How to access health informa tion online - Detail Indication:Hypercholesterolemia Start:17-Dec-2016 Instruction Type:Patient Education How to access health informa tion online Indication:Hypercholesterolemia Start:17-Dec-2016 Instruction Type:Patient Education How to access health informa tion online - Detail Indication:Hypercholesterolemia Start:17-Dec-2016 Instruction Type:Patient Education How to access health informa tion online Indication:Hypothyroidism Start:18-Jun-2016 Instruction Type:Patient Education How to access health informa tion online - Detail Indication:Hypothyroidism Start:18-Jun-2016 Instruction Type:Patient Education Patient Instructions Indication:Hypothyroidism Start:18-Jun-2016 Instruction Type:Provider Instructions for Treatment How to access health informa tion online Indication:Hypothyroidism Start:02-Dec-2015 Instruction Type:Patient Education How to access health informa tion online - Detail Indication:Hypothyroidism Start:02-Dec-2015 Instruction Type:Patient Education Patient Instructions Indication:Hypothyroidism Start:02-Dec-2015 Instruction Type:Provider Instructions for Treatment Patient Instructions Indication:Hypothyroidism Start:18-Jun-2015 Instruction Type:Provider Instructions for Treatment Patient Instructions Indication:Hypoglycemia Start:30-Apr-2015 Instruction Type:Provider Instructions for Treatment How to access health informa tion online Indication:Hypothyroidism Start:24-Dec-2014 Instruction Type:Patient Education How to access health informa tion online - Detail Indication:Hypothyroidism Start:24-Dec-2014 Instruction Type:Patient Education Patient Instructions Indication:Hypothyroidism Start:24-Dec-2014 Instruction Type:Provider Instructions for Treatment Patient Instructions Indication:Sinusitis, acute Start:19-Mar-2014 Instruction Type:Provider Instructions for Treatment How to access health informa tion online Indication:Sinusitis, acute Start:19-Mar-2014 Instruction Type:Patient Education How to access health informa tion online - Detail Indication:Sinusitis, acute Start:19-Mar-2014 Instruction Type:Patient Education How to access health informa tion online Indication:Hypothyroidism Start:15-Jan-2014 Instruction Type:Patient Education How to access health informa tion online - Detail Indication:Hypothyroidism Start:15-Jan-2014 Instruction Type:Patient Education Patient Instructions Indication:Hypothyroidism Start:15-Jan-2014 Instruction Type:Provider Instructions for Treatment Patient Instructions Indication:Hypothyroidism Start:17-Jul-2013 Instruction Type:Provider Instructions for Treatment Patient Instructions Indication:Sinusitis, acute Start:30-Mar-2013 Instruction Type:Provider Instructions for Treatment Patient Instructions Indication:Cough Start:30-Mar-2013 Instruction Type:Provider Instructions for Treatment Patient Instructions Indication:Well woman exam with routine gynecological exam Start:02-Jan-2013 Instruction Type:Provider Instructions for Treatment [facility]; [facility] Work Phone: Instructions* Name Dates Details Patient Instructions Indication:Current nonsmoker (Renamed from Current non-smoker) Start:07-Dec-2022 Instruction Type:Provider Instructions for Treatment How to Access Health Informa tion Online using Patient Portal and [employer] Apps Indication:Current nonsmoker (Renamed from Current non-smoker) Start:07-Dec-2022 Instruction Type:Patient Education Patient Instructions Indication:BMI 24.0-24.9, adult Start:18-Aug-2022 Instruction Type:Provider Instructions for Treatment How to Access Health Informa tion Online using Patient Portal and [employer] Apps Indication:BMI 24.0-24.9, adult Start:18-Aug-2022 Instruction Type:Patient Education Patient Instructions Indication:Current nonsmoker (Renamed from Current non-smoker) Start:05-Jun-2022 Instruction Type:Provider Instructions for Treatment How to Access Health Informa tion Online using Patient Portal and [employer] Apps Indication:Current nonsmoker (Renamed from Current non-smoker) Start:05-Jun-2022 Instruction Type:Patient Education Patient Instructions Indication:Unspecified Diagnosis Start:22-May-2022 Instruction Type:Provider Instructions for Treatment How to Access Health Informa tion Online using Patient Portal and [employer] Apps Indication:Unspecified Diagnosis Start:22-May-2022 Instruction Type:Patient Education Patient Instructions Indication:Current nonsmoker (Renamed from Current non-smoker) Start:09-Jan-2022 Instruction Type:Provider Instructions for Treatment How to Access Health Informa tion Online using Patient Portal and [employer] Apps Indication:Current nonsmoker (Renamed from Current non-smoker) Start:09-Jan-2022 Instruction Type:Patient Education Patient Instructions Indication:Current nonsmoker (Renamed from Current non-smoker) Start:04-Sep-2021 Instruction Type:Provider Instructions for Treatment How to Access Health Informa tion Online using Patient Portal and [employer] Apps Indication:Current nonsmoker (Renamed from Current non-smoker) Start:04-Sep-2021 Instruction Type:Patient Education Patient Instructions Indication:Sciatica of right side Start:27-Feb-2021 Instruction Type:Provider Instructions for Treatment How to Access Health Informa tion Online using Patient Portal and [employer] Apps Indication:Sciatica of right side Start:27-Feb-2021 Instruction Type:Patient Education Patient Instructions Indication:Sciatica of right side Start:27-Jan-2021 Instruction Type:Provider Instructions for Treatment How to Access Health Informa tion Online using Patient Portal and [employer] Apps Indication:Sciatica of right side Start:27-Jan-2021 Instruction Type:Patient Education How to access health informa tion online Indication:Exposure to SARS virus Start:26-Apr-2020 Instruction Type:Patient Education How to access health informa tion online - Detail Indication:Exposure to SARS virus Start:26-Apr-2020 Instruction Type:Patient Education Patient Instructions Indication:Exposure to SARS virus Start:26-Apr-2020 Instruction Type:Provider Instructions for Treatment How to access health informa tion online Indication:Hypercholesterolemia Start:02-Jan-2020 Instruction Type:Patient Education How to access health informa tion online - Detail Indication:Hypercholesterolemia Start:02-Jan-2020 Instruction Type:Patient Education Patient Instructions Indication:Hypercholesterolemia Start:02-Jan-2020 Instruction Type:Provider Instructions for Treatment How to access health informa tion online Indication:BMI 23.0-23.9, adult Start:10-Jul-2019 Instruction Type:Patient Education How to access health informa tion online - Detail Indication:BMI 23.0-23.9, adult Start:10-Jul-2019 Instruction Type:Patient Education Patient Instructions Indication:BMI 23.0-23.9, adult Start:10-Jul-2019 Instruction Type:Provider Instructions for Treatment How to access health informa tion online Indication:Hypothyroidism Start:13-Jan-2019 Instruction Type:Patient Education How to access health informa tion online - Detail Indication:Hypothyroidism Start:13-Jan-2019 Instruction Type:Patient Education Patient Instructions Indication:Hypothyroidism Start:13-Jan-2019 Instruction Type:Provider Instructions for Treatment How to access health informa tion online Indication:Well woman exam with routine gynecological exam Start:14-Jul-2018 Instruction Type:Patient Education How to access health informa tion online - Detail Indication:Well woman exam with routine gynecological exam Start:14-Jul-2018 Instruction Type:Patient Education Patient Instructions Indication:Well woman exam with routine gynecological exam Start:14-Jul-2018 Instruction Type:Provider Instructions for Treatment How to access health informa tion online Indication:Well woman exam with routine gynecological exam Start:18-Jun-2017 Instruction Type:Patient Education How to access health informa tion online - Detail Indication:Well woman exam with routine gynecological exam Start:18-Jun-2017 Instruction Type:Patient Education Patient Instructions Indication:Well woman exam with routine gynecological exam Start:18-Jun-2017 Instruction Type:Provider Instructions for Treatment How to access health informa tion online - Detail Indication:Hypercholesterolemia Start:17-Dec-2016 Instruction Type:Patient Education How to access health informa tion online Indication:Hypercholesterolemia Start:17-Dec-2016 Instruction Type:Patient Education How to access health informa tion online - Detail Indication:Hypercholesterolemia Start:17-Dec-2016 Instruction Type:Patient Education How to access health informa tion online Indication:Hypothyroidism Start:18-Jun-2016 Instruction Type:Patient Education How to access health informa tion online - Detail Indication:Hypothyroidism Start:18-Jun-2016 Instruction Type:Patient Education Patient Instructions Indication:Hypothyroidism Start:18-Jun-2016 Instruction Type:Provider Instructions for Treatment How to access health informa tion online Indication:Hypothyroidism Start:02-Dec-2015 Instruction Type:Patient Education How to access health informa tion online - Detail Indication:Hypothyroidism Start:02-Dec-2015 Instruction Type:Patient Education Patient Instructions Indication:Hypothyroidism Start:02-Dec-2015 Instruction Type:Provider Instructions for Treatment Patient Instructions Indication:Hypothyroidism Start:18-Jun-2015 Instruction Type:Provider Instructions for Treatment Patient Instructions Indication:Hypoglycemia Start:30-Apr-2015 Instruction Type:Provider Instructions for Treatment How to access health informa tion online Indication:Hypothyroidism Start:24-Dec-2014 Instruction Type:Patient Education How to access health informa tion online - Detail Indication:Hypothyroidism Start:24-Dec-2014 Instruction Type:Patient Education Patient Instructions Indication:Hypothyroidism Start:24-Dec-2014 Instruction Type:Provider Instructions for Treatment Patient Instructions Indication:Sinusitis, acute Start:19-Mar-2014 Instruction Type:Provider Instructions for Treatment How to access health informa tion online Indication:Sinusitis, acute Start:19-Mar-2014 Instruction Type:Patient Education How to access health informa tion online - Detail Indication:Sinusitis, acute Start:19-Mar-2014 Instruction Type:Patient Education How to access health informa tion online Indication:Hypothyroidism Start:15-Jan-2014 Instruction Type:Patient Education How to access health informa tion online - Detail Indication:Hypothyroidism Start:15-Jan-2014 Instruction Type:Patient Education Patient Instructions Indication:Hypothyroidism Start:15-Jan-2014 Instruction Type:Provider Instructions for Treatment Patient Instructions Indication:Hypothyroidism Start:17-Jul-2013 Instruction Type:Provider Instructions for Treatment Patient Instructions Indication:Sinusitis, acute Start:30-Mar-2013 Instruction Type:Provider Instructions for Treatment Patient Instructions Indication:Cough Start:30-Mar-2013 Instruction Type:Provider Instructions for Treatment Patient Instructions Indication:Well woman exam with routine gynecological exam Start:02-Jan-2013 Instruction Type:Provider Instructions for Treatment [facility]; [facility] Work Phone: Instructions* Name Dates Details Patient Instructions Indication:Current nonsmoker (Renamed from Current non-smoker) Start:17-Dec-2022 Instruction Type:Provider Instructions for Treatment How to Access Health Informa tion Online using Patient Portal and [employer] Apps Indication:Current nonsmoker (Renamed from Current non-smoker) Start:17-Dec-2022 Instruction Type:Patient Education Patient Instructions Indication:Current nonsmoker (Renamed from Current non-smoker) Start:07-Dec-2022 Instruction Type:Provider Instructions for Treatment How to Access Health Informa tion Online using Patient Portal and [employer] Apps Indication:Current nonsmoker (Renamed from Current non-smoker) Start:07-Dec-2022 Instruction Type:Patient Education Patient Instructions Indication:BMI 24.0-24.9, adult Start:18-Aug-2022 Instruction Type:Provider Instructions for Treatment How to Access Health Informa tion Online using Patient Portal and [employer] Apps Indication:BMI 24.0-24.9, adult Start:18-Aug-2022 Instruction Type:Patient Education Patient Instructions Indication:Current nonsmoker (Renamed from Current non-smoker) Start:05-Jun-2022 Instruction Type:Provider Instructions for Treatment How to Access Health Informa tion Online using Patient Portal and [employer] Indication:Current nonsmoker (Renamed from Current non-smoker) Start:05-Jun-2022 Instruction Type:Patient Education Patient Instructions Indication:Unspecified Diagnosis Start:22-May-2022 Instruction Type:Provider Instructions for Treatment How to Access Health Informa tion Online using Patient Portal and [employer] Indication:Unspecified Diagnosis Start:22-May-2022 Instruction Type:Patient Education Patient Instructions Indication:Current nonsmoker (Renamed from Current non-smoker) Start:09-Jan-2022 Instruction Type:Provider Instructions for Treatment How to Access Health Informa tion Online using Patient Portal and [employer] Apps Indication:Current nonsmoker (Renamed from Current non-smoker) Start:09-Jan-2022 Instruction Type:Patient Education Patient Instructions Indication:Current nonsmoker (Renamed from Current non-smoker) Start:04-Sep-2021 Instruction Type:Provider Instructions for Treatment How to Access Health Informa tion Online using Patient Portal and [employer] Indication:Current nonsmoker (Renamed from Current non-smoker) Start:04-Sep-2021 Instruction Type:Patient Education Patient Instructions Indication:Sciatica of right side Start:27-Feb-2021 Instruction Type:Provider Instructions for Treatment How to Access Health Informa tion Online using Patient Portal and [employer] Apps Indication:Sciatica of right side Start:27-Feb-2021 Instruction Type:Patient Education Patient Instructions Indication:Sciatica of right side Start:27-Jan-2021 Instruction Type:Provider Instructions for Treatment How to Access Health Informa tion Online using Patient Portal and [employer] Indication:Sciatica of right side Start:27-Jan-2021 Instruction Type:Patient Education How to access health informa tion online Indication:Exposure to SARS virus Start:26-Apr-2020 Instruction Type:Patient Education How to access health informa tion online - Detail Indication:Exposure to SARS virus Start:26-Apr-2020 Instruction Type:Patient Education Patient Instructions Indication:Exposure to SARS virus Start:26-Apr-2020 Instruction Type:Provider Instructions for Treatment How to access health informa tion online Indication:Hypercholesterolemia Start:02-Jan-2020 Instruction Type:Patient Education How to access health informa tion online - Detail Indication:Hypercholesterolemia Start:02-Jan-2020 Instruction Type:Patient Education Patient Instructions Indication:Hypercholesterolemia Start:02-Jan-2020 Instruction Type:Provider Instructions for Treatment How to access health informa tion online Indication:BMI 23.0-23.9, adult Start:10-Jul-2019 Instruction Type:Patient Education How to access health informa tion online - Detail Indication:BMI 23.0-23.9, adult Start:10-Jul-2019 Instruction Type:Patient Education Patient Instructions Indication:BMI 23.0-23.9, adult Start:10-Jul-2019 Instruction Type:Provider Instructions for Treatment How to access health informa tion online Indication:Hypothyroidism Start:13-Jan-2019 Instruction Type:Patient Education How to access health informa tion online - Detail Indication:Hypothyroidism Start:13-Jan-2019 Instruction Type:Patient Education Patient Instructions Indication:Hypothyroidism Start:13-Jan-2019 Instruction Type:Provider Instructions for Treatment How to access health informa tion online Indication:Well woman exam with routine gynecological exam Start:14-Jul-2018 Instruction Type:Patient Education How to access health informa tion online - Detail Indication:Well woman exam with routine gynecological exam Start:14-Jul-2018 Instruction Type:Patient Education Patient Instructions Indication:Well woman exam with routine gynecological exam Start:14-Jul-2018 Instruction Type:Provider Instructions for Treatment How to access health informa tion online Indication:Well woman exam with routine gynecological exam Start:18-Jun-2017 Instruction Type:Patient Education How to access health informa tion online - Detail Indication:Well woman exam with routine gynecological exam Start:18-Jun-2017 Instruction Type:Patient Education Patient Instructions Indication:Well woman exam with routine gynecological exam Start:18-Jun-2017 Instruction Type:Provider Instructions for Treatment How to access health informa tion online - Detail Indication:Hypercholesterolemia Start:17-Dec-2016 Instruction Type:Patient Education How to access health informa tion online Indication:Hypercholesterolemia Start:17-Dec-2016 Instruction Type:Patient Education How to access health informa tion online - Detail Indication:Hypercholesterolemia Start:17-Dec-2016 Instruction Type:Patient Education How to access health informa tion online Indication:Hypothyroidism Start:18-Jun-2016 Instruction Type:Patient Education How to access health informa tion online - Detail Indication:Hypothyroidism Start:18-Jun-2016 Instruction Type:Patient Education Patient Instructions Indication:Hypothyroidism Start:18-Jun-2016 Instruction Type:Provider Instructions for Treatment How to access health informa tion online Indication:Hypothyroidism Start:02-Dec-2015 Instruction Type:Patient Education How to access health informa tion online - Detail Indication:Hypothyroidism Start:02-Dec-2015 Instruction Type:Patient Education Patient Instructions Indication:Hypothyroidism Start:02-Dec-2015 Instruction Type:Provider Instructions for Treatment Patient Instructions Indication:Hypothyroidism Start:18-Jun-2015 Instruction Type:Provider Instructions for Treatment Patient Instructions Indication:Hypoglycemia Start:30-Apr-2015 Instruction Type:Provider Instructions for Treatment How to access health informa tion online Indication:Hypothyroidism Start:24-Dec-2014 Instruction Type:Patient Education How to access health informa tion online - Detail Indication:Hypothyroidism Start:24-Dec-2014 Instruction Type:Patient Education Patient Instructions Indication:Hypothyroidism Start:24-Dec-2014 Instruction Type:Provider Instructions for Treatment Patient Instructions Indication:Sinusitis, acute Start:19-Mar-2014 Instruction Type:Provider Instructions for Treatment How to access health informa tion online Indication:Sinusitis, acute Start:19-Mar-2014 Instruction Type:Patient Education How to access health informa tion online - Detail Indication:Sinusitis, acute Start:19-Mar-2014 Instruction Type:Patient Education How to access health informa tion online Indication:Hypothyroidism Start:15-Jan-2014 Instruction Type:Patient Education How to access health informa tion online - Detail Indication:Hypothyroidism Start:15-Jan-2014 Instruction Type:Patient Education Patient Instructions Indication:Hypothyroidism Start:15-Jan-2014 Instruction Type:Provider Instructions for Treatment Patient Instructions Indication:Hypothyroidism Start:17-Jul-2013 Instruction Type:Provider Instructions for Treatment Patient Instructions Indication:Sinusitis, acute Start:30-Mar-2013 Instruction Type:Provider Instructions for Treatment Patient Instructions Indication:Cough Start:30-Mar-2013 Instruction Type:Provider Instructions for Treatment Patient Instructions Indication:Well woman exam with routine gynecological exam Start:02-Jan-2013 Instruction Type:Provider Instructions for Treatment [facility]; [facility] Work Phone: Instructions* Name Dates Details Patient Instructions Indication:Current nonsmoker (Renamed from Current non-smoker) Start:17-Dec-2022 Instruction Type:Provider Instructions for Treatment How to Access Health Informa tion Online using Patient Portal and [employer] Apps Indication:Current nonsmoker (Renamed from Current non-smoker) Start:17-Dec-2022 Instruction Type:Patient Education Patient Instructions Indication:Current nonsmoker (Renamed from Current non-smoker) Start:07-Dec-2022 Instruction Type:Provider Instructions for Treatment How to Access Health Informa tion Online using Patient Portal and [employer] Apps Indication:Current nonsmoker (Renamed from Current non-smoker) Start:07-Dec-2022 Instruction Type:Patient Education Patient Instructions Indication:BMI 24.0-24.9, adult Start:18-Aug-2022 Instruction Type:Provider Instructions for Treatment How to Access Health Informa tion Online using Patient Portal and [employer] Apps Indication:BMI 24.0-24.9, adult Start:18-Aug-2022 Instruction Type:Patient Education Patient Instructions Indication:Current nonsmoker (Renamed from Current non-smoker) Start:05-Jun-2022 Instruction Type:Provider Instructions for Treatment How to Access Health Informa tion Online using Patient Portal and [employer] Apps Indication:Current nonsmoker (Renamed from Current non-smoker) Start:05-Jun-2022 Instruction Type:Patient Education Patient Instructions Indication:Unspecified Diagnosis Start:22-May-2022 Instruction Type:Provider Instructions for Treatment How to Access Health Informa tion Online using Patient Portal and [employer] Apps Indication:Unspecified Diagnosis Start:22-May-2022 Instruction Type:Patient Education Patient Instructions Indication:Current nonsmoker (Renamed from Current non-smoker) Start:09-Jan-2022 Instruction Type:Provider Instructions for Treatment How to Access Health Informa tion Online using Patient Portal and [employer] Apps Indication:Current nonsmoker (Renamed from Current non-smoker) Start:09-Jan-2022 Instruction Type:Patient Education Patient Instructions Indication:Current nonsmoker (Renamed from Current non-smoker) Start:04-Sep-2021 Instruction Type:Provider Instructions for Treatment How to Access Health Informa tion Online using Patient Portal and [employer] Apps Indication:Current nonsmoker (Renamed from Current non-smoker) Start:04-Sep-2021 Instruction Type:Patient Education Patient Instructions Indication:Sciatica of right side Start:27-Feb-2021 Instruction Type:Provider Instructions for Treatment How to Access Health Informa tion Online using Patient Portal and [employer] Apps Indication:Sciatica of right side Start:27-Feb-2021 Instruction Type:Patient Education Patient Instructions Indication:Sciatica of right side Start:27-Jan-2021 Instruction Type:Provider Instructions for Treatment How to Access Health Informa tion Online using Patient Portal and [employer] Apps Indication:Sciatica of right side Start:27-Jan-2021 Instruction Type:Patient Education How to access health informa tion online Indication:Exposure to SARS virus Start:26-Apr-2020 Instruction Type:Patient Education How to access health informa tion online - Detail Indication:Exposure to SARS virus Start:26-Apr-2020 Instruction Type:Patient Education Patient Instructions Indication:Exposure to SARS virus Start:26-Apr-2020 Instruction Type:Provider Instructions for Treatment How to access health informa tion online Indication:Hypercholesterolemia Start:02-Jan-2020 Instruction Type:Patient Education How to access health informa tion online - Detail Indication:Hypercholesterolemia Start:02-Jan-2020 Instruction Type:Patient Education Patient Instructions Indication:Hypercholesterolemia Start:02-Jan-2020 Instruction Type:Provider Instructions for Treatment How to access health informa tion online Indication:BMI 23.0-23.9, adult Start:10-Jul-2019 Instruction Type:Patient Education How to access health informa tion online - Detail Indication:BMI 23.0-23.9, adult Start:10-Jul-2019 Instruction Type:Patient Education Patient Instructions Indication:BMI 23.0-23.9, adult Start:10-Jul-2019 Instruction Type:Provider Instructions for Treatment How to access health informa tion online Indication:Hypothyroidism Start:13-Jan-2019 Instruction Type:Patient Education How to access health informa tion online - Detail Indication:Hypothyroidism Start:13-Jan-2019 Instruction Type:Patient Education Patient Instructions Indication:Hypothyroidism Start:13-Jan-2019 Instruction Type:Provider Instructions for Treatment How to access health informa tion online Indication:Well woman exam with routine gynecological exam Start:14-Jul-2018 Instruction Type:Patient Education How to access health informa tion online - Detail Indication:Well woman exam with routine gynecological exam Start:14-Jul-2018 Instruction Type:Patient Education Patient Instructions Indication:Well woman exam with routine gynecological exam Start:14-Jul-2018 Instruction Type:Provider Instructions for Treatment How to access health informa tion online Indication:Well woman exam with routine gynecological exam Start:18-Jun-2017 Instruction Type:Patient Education How to access health informa tion online - Detail Indication:Well woman exam with routine gynecological exam Start:18-Jun-2017 Instruction Type:Patient Education Patient Instructions Indication:Well woman exam with routine gynecological exam Start:18-Jun-2017 Instruction Type:Provider Instructions for Treatment How to access health informa tion online - Detail Indication:Hypercholesterolemia Start:17-Dec-2016 Instruction Type:Patient Education How to access health informa tion online Indication:Hypercholesterolemia Start:17-Dec-2016 Instruction Type:Patient Education How to access health informa tion online - Detail Indication:Hypercholesterolemia Start:17-Dec-2016 Instruction Type:Patient Education How to access health informa tion online Indication:Hypothyroidism Start:18-Jun-2016 Instruction Type:Patient Education How to access health informa tion online - Detail Indication:Hypothyroidism Start:18-Jun-2016 Instruction Type:Patient Education Patient Instructions Indication:Hypothyroidism Start:18-Jun-2016 Instruction Type:Provider Instructions for Treatment How to access health informa tion online Indication:Hypothyroidism Start:02-Dec-2015 Instruction Type:Patient Education How to access health informa tion online - Detail Indication:Hypothyroidism Start:02-Dec-2015 Instruction Type:Patient Education Patient Instructions Indication:Hypothyroidism Start:02-Dec-2015 Instruction Type:Provider Instructions for Treatment Patient Instructions Indication:Hypothyroidism Start:18-Jun-2015 Instruction Type:Provider Instructions for Treatment Patient Instructions Indication:Hypoglycemia Start:30-Apr-2015 Instruction Type:Provider Instructions for Treatment How to access health informa tion online Indication:Hypothyroidism Start:24-Dec-2014 Instruction Type:Patient Education How to access health informa tion online - Detail Indication:Hypothyroidism Start:24-Dec-2014 Instruction Type:Patient Education Patient Instructions Indication:Hypothyroidism Start:24-Dec-2014 Instruction Type:Provider Instructions for Treatment Patient Instructions Indication:Sinusitis, acute Start:19-Mar-2014 Instruction Type:Provider Instructions for Treatment How to access health informa tion online Indication:Sinusitis, acute Start:19-Mar-2014 Instruction Type:Patient Education How to access health informa tion online - Detail Indication:Sinusitis, acute Start:19-Mar-2014 Instruction Type:Patient Education How to access health informa tion online Indication:Hypothyroidism Start:15-Jan-2014 Instruction Type:Patient Education How to access health informa tion online - Detail Indication:Hypothyroidism Start:15-Jan-2014 Instruction Type:Patient Education Patient Instructions Indication:Hypothyroidism Start:15-Jan-2014 Instruction Type:Provider Instructions for Treatment Patient Instructions Indication:Hypothyroidism Start:17-Jul-2013 Instruction Type:Provider Instructions for Treatment Patient Instructions Indication:Sinusitis, acute Start:30-Mar-2013 Instruction Type:Provider Instructions for Treatment Patient Instructions Indication:Cough Start:30-Mar-2013 Instruction Type:Provider Instructions for Treatment Patient Instructions Indication:Well woman exam with routine gynecological exam Start:02-Jan-2013 Instruction Type:Provider Instructions for Treatment [facility]; [facility] Work Phone: Instructions* Name Dates Details Patient Instructions Indication:Current nonsmoker (Renamed from Current non-smoker) Start:17-Dec-2022 Instruction Type:Provider Instructions for Treatment How to Access Health Informa tion Online using Patient Portal and [employer] Apps Indication:Current nonsmoker (Renamed from Current non-smoker) Start:17-Dec-2022 Instruction Type:Patient Education Patient Instructions Indication:Current nonsmoker (Renamed from Current non-smoker) Start:07-Dec-2022 Instruction Type:Provider Instructions for Treatment How to Access Health Informa tion Online using Patient Portal and [employer] Apps Indication:Current nonsmoker (Renamed from Current non-smoker) Start:07-Dec-2022 Instruction Type:Patient Education Patient Instructions Indication:BMI 24.0-24.9, adult Start:18-Aug-2022 Instruction Type:Provider Instructions for Treatment How to Access Health Informa tion Online using Patient Portal and [employer] Apps Indication:BMI 24.0-24.9, adult Start:18-Aug-2022 Instruction Type:Patient Education Patient Instructions Indication:Current nonsmoker (Renamed from Current non-smoker) Start:05-Jun-2022 Instruction Type:Provider Instructions for Treatment How to Access Health Informa tion Online using Patient Portal and [employer] Apps Indication:Current nonsmoker (Renamed from Current non-smoker) Start:05-Jun-2022 Instruction Type:Patient Education Patient Instructions Indication:Unspecified Diagnosis Start:22-May-2022 Instruction Type:Provider Instructions for Treatment How to Access Health Informa tion Online using Patient Portal and [employer] Apps Indication:Unspecified Diagnosis Start:22-May-2022 Instruction Type:Patient Education Patient Instructions Indication:Current nonsmoker (Renamed from Current non-smoker) Start:09-Jan-2022 Instruction Type:Provider Instructions for Treatment How to Access Health Informa tion Online using Patient Portal and [employer] Apps Indication:Current nonsmoker (Renamed from Current non-smoker) Start:09-Jan-2022 Instruction Type:Patient Education Patient Instructions Indication:Current nonsmoker (Renamed from Current non-smoker) Start:04-Sep-2021 Instruction Type:Provider Instructions for Treatment How to Access Health Informa tion Online using Patient Portal and [employer] Apps Indication:Current nonsmoker (Renamed from Current non-smoker) Start:04-Sep-2021 Instruction Type:Patient Education Patient Instructions Indication:Sciatica of right side Start:27-Feb-2021 Instruction Type:Provider Instructions for Treatment How to Access Health Informa tion Online using Patient Portal and [employer] Apps Indication:Sciatica of right side Start:27-Feb-2021 Instruction Type:Patient Education Patient Instructions Indication:Sciatica of right side Start:27-Jan-2021 Instruction Type:Provider Instructions for Treatment How to Access Health Informa tion Online using Patient Portal and [employer] Apps Indication:Sciatica of right side Start:27-Jan-2021 Instruction Type:Patient Education How to access health informa tion online Indication:Exposure to SARS virus Start:26-Apr-2020 Instruction Type:Patient Education How to access health informa tion online - Detail Indication:Exposure to SARS virus Start:26-Apr-2020 Instruction Type:Patient Education Patient Instructions Indication:Exposure to SARS virus Start:26-Apr-2020 Instruction Type:Provider Instructions for Treatment How to access health informa tion online Indication:Hypercholesterolemia Start:02-Jan-2020 Instruction Type:Patient Education How to access health informa tion online - Detail Indication:Hypercholesterolemia Start:02-Jan-2020 Instruction Type:Patient Education Patient Instructions Indication:Hypercholesterolemia Start:02-Jan-2020 Instruction Type:Provider Instructions for Treatment How to access health informa tion online Indication:BMI 23.0-23.9, adult Start:10-Jul-2019 Instruction Type:Patient Education How to access health informa tion online - Detail Indication:BMI 23.0-23.9, adult Start:10-Jul-2019 Instruction Type:Patient Education Patient Instructions Indication:BMI 23.0-23.9, adult Start:10-Jul-2019 Instruction Type:Provider Instructions for Treatment How to access health informa tion online Indication:Hypothyroidism Start:13-Jan-2019 Instruction Type:Patient Education How to access health informa tion online - Detail Indication:Hypothyroidism Start:13-Jan-2019 Instruction Type:Patient Education Patient Instructions Indication:Hypothyroidism Start:13-Jan-2019 Instruction Type:Provider Instructions for Treatment How to access health informa tion online Indication:Well woman exam with routine gynecological exam Start:14-Jul-2018 Instruction Type:Patient Education How to access health informa tion online - Detail Indication:Well woman exam with routine gynecological exam Start:14-Jul-2018 Instruction Type:Patient Education Patient Instructions Indication:Well woman exam with routine gynecological exam Start:14-Jul-2018 Instruction Type:Provider Instructions for Treatment How to access health informa tion online Indication:Well woman exam with routine gynecological exam Start:18-Jun-2017 Instruction Type:Patient Education How to access health informa tion online - Detail Indication:Well woman exam with routine gynecological exam Start:18-Jun-2017 Instruction Type:Patient Education Patient Instructions Indication:Well woman exam with routine gynecological exam Start:18-Jun-2017 Instruction Type:Provider Instructions for Treatment How to access health informa tion online - Detail Indication:Hypercholesterolemia Start:17-Dec-2016 Instruction Type:Patient Education How to access health informa tion online Indication:Hypercholesterolemia Start:17-Dec-2016 Instruction Type:Patient Education How to access health informa tion online - Detail Indication:Hypercholesterolemia Start:17-Dec-2016 Instruction Type:Patient Education How to access health informa tion online Indication:Hypothyroidism Start:18-Jun-2016 Instruction Type:Patient Education How to access health informa tion online - Detail Indication:Hypothyroidism Start:18-Jun-2016 Instruction Type:Patient Education Patient Instructions Indication:Hypothyroidism Start:18-Jun-2016 Instruction Type:Provider Instructions for Treatment How to access health informa tion online Indication:Hypothyroidism Start:02-Dec-2015 Instruction Type:Patient Education How to access health informa tion online - Detail Indication:Hypothyroidism Start:02-Dec-2015 Instruction Type:Patient Education Patient Instructions Indication:Hypothyroidism Start:02-Dec-2015 Instruction Type:Provider Instructions for Treatment Patient Instructions Indication:Hypothyroidism Start:18-Jun-2015 Instruction Type:Provider Instructions for Treatment Patient Instructions Indication:Hypoglycemia Start:30-Apr-2015 Instruction Type:Provider Instructions for Treatment How to access health informa tion online Indication:Hypothyroidism Start:24-Dec-2014 Instruction Type:Patient Education How to access health informa tion online - Detail Indication:Hypothyroidism Start:24-Dec-2014 Instruction Type:Patient Education Patient Instructions Indication:Hypothyroidism Start:24-Dec-2014 Instruction Type:Provider Instructions for Treatment Patient Instructions Indication:Sinusitis, acute Start:19-Mar-2014 Instruction Type:Provider Instructions for Treatment How to access health informa tion online Indication:Sinusitis, acute Start:19-Mar-2014 Instruction Type:Patient Education How to access health informa tion online - Detail Indication:Sinusitis, acute Start:19-Mar-2014 Instruction Type:Patient Education How to access health informa tion online Indication:Hypothyroidism Start:15-Jan-2014 Instruction Type:Patient Education How to access health informa tion online - Detail Indication:Hypothyroidism Start:15-Jan-2014 Instruction Type:Patient Education Patient Instructions Indication:Hypothyroidism Start:15-Jan-2014 Instruction Type:Provider Instructions for Treatment Patient Instructions Indication:Hypothyroidism Start:17-Jul-2013 Instruction Type:Provider Instructions for Treatment Patient Instructions Indication:Sinusitis, acute Start:30-Mar-2013 Instruction Type:Provider Instructions for Treatment Patient Instructions Indication:Cough Start:30-Mar-2013 Instruction Type:Provider Instructions for Treatment Patient Instructions Indication:Well woman exam with routine gynecological exam Start:02-Jan-2013 Instruction Type:Provider Instructions for Treatment [facility]; [facility] Work Phone: Instructions* Name Dates Details Patient Instructions Indication:Current nonsmoker (Renamed from Current non-smoker) Start:17-Dec-2022 Instruction Type:Provider Instructions for Treatment How to Access Health Informa tion Online using Patient Portal and [employer] Apps Indication:Current nonsmoker (Renamed from Current non-smoker) Start:17-Dec-2022 Instruction Type:Patient Education Patient Instructions Indication:Current nonsmoker (Renamed from Current non-smoker) Start:07-Dec-2022 Instruction Type:Provider Instructions for Treatment How to Access Health Informa tion Online using Patient Portal and [employer] Apps Indication:Current nonsmoker (Renamed from Current non-smoker) Start:07-Dec-2022 Instruction Type:Patient Education Patient Instructions Indication:BMI 24.0-24.9, adult Start:18-Aug-2022 Instruction Type:Provider Instructions for Treatment How to Access Health Informa tion Online using Patient Portal and [employer] Indication:BMI 24.0-24.9, adult Start:18-Aug-2022 Instruction Type:Patient Education Patient Instructions Indication:Current nonsmoker (Renamed from Current non-smoker) Start:05-Jun-2022 Instruction Type:Provider Instructions for Treatment How to Access Health Informa tion Online using Patient Portal and [employer] Apps Indication:Current nonsmoker (Renamed from Current non-smoker) Start:05-Jun-2022 Instruction Type:Patient Education Patient Instructions Indication:Unspecified Diagnosis Start:22-May-2022 Instruction Type:Provider Instructions for Treatment How to Access Health Informa tion Online using Patient Portal and [employer] Apps Indication:Unspecified Diagnosis Start:22-May-2022 Instruction Type:Patient Education Patient Instructions Indication:Current nonsmoker (Renamed from Current non-smoker) Start:09-Jan-2022 Instruction Type:Provider Instructions for Treatment How to Access Health Informa tion Online using Patient Portal and [employer] Apps Indication:Current nonsmoker (Renamed from Current non-smoker) Start:09-Jan-2022 Instruction Type:Patient Education Patient Instructions Indication:Current nonsmoker (Renamed from Current non-smoker) Start:04-Sep-2021 Instruction Type:Provider Instructions for Treatment How to Access Health Informa tion Online using Patient Portal and [employer] Apps Indication:Current nonsmoker (Renamed from Current non-smoker) Start:04-Sep-2021 Instruction Type:Patient Education Patient Instructions Indication:Sciatica of right side Start:27-Feb-2021 Instruction Type:Provider Instructions for Treatment How to Access Health Informa tion Online using Patient Portal and [employer] Apps Indication:Sciatica of right side Start:27-Feb-2021 Instruction Type:Patient Education Patient Instructions Indication:Sciatica of right side Start:27-Jan-2021 Instruction Type:Provider Instructions for Treatment How to Access Health Informa tion Online using Patient Portal and [employer] Apps Indication:Sciatica of right side Start:27-Jan-2021 Instruction Type:Patient Education How to access health informa tion online Indication:Exposure to SARS virus Start:26-Apr-2020 Instruction Type:Patient Education How to access health informa tion online - Detail Indication:Exposure to SARS virus Start:26-Apr-2020 Instruction Type:Patient Education Patient Instructions Indication:Exposure to SARS virus Start:26-Apr-2020 Instruction Type:Provider Instructions for Treatment How to access health informa tion online Indication:Hypercholesterolemia Start:02-Jan-2020 Instruction Type:Patient Education How to access health informa tion online - Detail Indication:Hypercholesterolemia Start:02-Jan-2020 Instruction Type:Patient Education Patient Instructions Indication:Hypercholesterolemia Start:02-Jan-2020 Instruction Type:Provider Instructions for Treatment How to access health informa tion online Indication:BMI 23.0-23.9, adult Start:10-Jul-2019 Instruction Type:Patient Education How to access health informa tion online - Detail Indication:BMI 23.0-23.9, adult Start:10-Jul-2019 Instruction Type:Patient Education Patient Instructions Indication:BMI 23.0-23.9, adult Start:10-Jul-2019 Instruction Type:Provider Instructions for Treatment How to access health informa tion online Indication:Hypothyroidism Start:13-Jan-2019 Instruction Type:Patient Education How to access health informa tion online - Detail Indication:Hypothyroidism Start:13-Jan-2019 Instruction Type:Patient Education Patient Instructions Indication:Hypothyroidism Start:13-Jan-2019 Instruction Type:Provider Instructions for Treatment How to access health informa tion online Indication:Well woman exam with routine gynecological exam Start:14-Jul-2018 Instruction Type:Patient Education How to access health informa tion online - Detail Indication:Well woman exam with routine gynecological exam Start:14-Jul-2018 Instruction Type:Patient Education Patient Instructions Indication:Well woman exam with routine gynecological exam Start:14-Jul-2018 Instruction Type:Provider Instructions for Treatment How to access health informa tion online Indication:Well woman exam with routine gynecological exam Start:18-Jun-2017 Instruction Type:Patient Education How to access health informa tion online - Detail Indication:Well woman exam with routine gynecological exam Start:18-Jun-2017 Instruction Type:Patient Education Patient Instructions Indication:Well woman exam with routine gynecological exam Start:18-Jun-2017 Instruction Type:Provider Instructions for Treatment How to access health informa tion online - Detail Indication:Hypercholesterolemia Start:17-Dec-2016 Instruction Type:Patient Education How to access health informa tion online Indication:Hypercholesterolemia Start:17-Dec-2016 Instruction Type:Patient Education How to access health informa tion online - Detail Indication:Hypercholesterolemia Start:17-Dec-2016 Instruction Type:Patient Education How to access health informa tion online Indication:Hypothyroidism Start:18-Jun-2016 Instruction Type:Patient Education How to access health informa tion online - Detail Indication:Hypothyroidism Start:18-Jun-2016 Instruction Type:Patient Education Patient Instructions Indication:Hypothyroidism Start:18-Jun-2016 Instruction Type:Provider Instructions for Treatment How to access health informa tion online Indication:Hypothyroidism Start:02-Dec-2015 Instruction Type:Patient Education How to access health informa tion online - Detail Indication:Hypothyroidism Start:02-Dec-2015 Instruction Type:Patient Education Patient Instructions Indication:Hypothyroidism Start:02-Dec-2015 Instruction Type:Provider Instructions for Treatment Patient Instructions Indication:Hypothyroidism Start:18-Jun-2015 Instruction Type:Provider Instructions for Treatment Patient Instructions Indication:Hypoglycemia Start:30-Apr-2015 Instruction Type:Provider Instructions for Treatment How to access health informa tion online Indication:Hypothyroidism Start:24-Dec-2014 Instruction Type:Patient Education How to access health informa tion online - Detail Indication:Hypothyroidism Start:24-Dec-2014 Instruction Type:Patient Education Patient Instructions Indication:Hypothyroidism Start:24-Dec-2014 Instruction Type:Provider Instructions for Treatment Patient Instructions Indication:Sinusitis, acute Start:19-Mar-2014 Instruction Type:Provider Instructions for Treatment How to access health informa tion online Indication:Sinusitis, acute Start:19-Mar-2014 Instruction Type:Patient Education How to access health informa tion online - Detail Indication:Sinusitis, acute Start:19-Mar-2014 Instruction Type:Patient Education How to access health informa tion online Indication:Hypothyroidism Start:15-Jan-2014 Instruction Type:Patient Education How to access health informa tion online - Detail Indication:Hypothyroidism Start:15-Jan-2014 Instruction Type:Patient Education Patient Instructions Indication:Hypothyroidism Start:15-Jan-2014 Instruction Type:Provider Instructions for Treatment Patient Instructions Indication:Hypothyroidism Start:17-Jul-2013 Instruction Type:Provider Instructions for Treatment Patient Instructions Indication:Sinusitis, acute Start:30-Mar-2013 Instruction Type:Provider Instructions for Treatment Patient Instructions Indication:Cough Start:30-Mar-2013 Instruction Type:Provider Instructions for Treatment Patient Instructions Indication:Well woman exam with routine gynecological exam Start:02-Jan-2013 Instruction Type:Provider Instructions for Treatment [facility]; [facility] Work Phone: Instructions* Name Dates Details Patient Instructions Indication:Current nonsmoker (Renamed from Current non-smoker) Start:17-Dec-2022 Instruction Type:Provider Instructions for Treatment How to Access Health Informa tion Online using Patient Portal and [employer] Apps Indication:Current nonsmoker (Renamed from Current non-smoker) Start:17-Dec-2022 Instruction Type:Patient Education Patient Instructions Indication:Current nonsmoker (Renamed from Current non-smoker) Start:07-Dec-2022 Instruction Type:Provider Instructions for Treatment How to Access Health Informa tion Online using Patient Portal and [employer] Apps Indication:Current nonsmoker (Renamed from Current non-smoker) Start:07-Dec-2022 Instruction Type:Patient Education Patient Instructions Indication:BMI 24.0-24.9, adult Start:18-Aug-2022 Instruction Type:Provider Instructions for Treatment How to Access Health Informa tion Online using Patient Portal and [employer] Apps Indication:BMI 24.0-24.9, adult Start:18-Aug-2022 Instruction Type:Patient Education Patient Instructions Indication:Current nonsmoker (Renamed from Current non-smoker) Start:05-Jun-2022 Instruction Type:Provider Instructions for Treatment How to Access Health Informa tion Online using Patient Portal and [employer] Apps Indication:Current nonsmoker (Renamed from Current non-smoker) Start:05-Jun-2022 Instruction Type:Patient Education Patient Instructions Indication:Unspecified Diagnosis Start:22-May-2022 Instruction Type:Provider Instructions for Treatment How to Access Health Informa tion Online using Patient Portal and [employer] Apps Indication:Unspecified Diagnosis Start:22-May-2022 Instruction Type:Patient Education Patient Instructions Indication:Current nonsmoker (Renamed from Current non-smoker) Start:09-Jan-2022 Instruction Type:Provider Instructions for Treatment How to Access Health Informa tion Online using Patient Portal and [employer] Apps Indication:Current nonsmoker (Renamed from Current non-smoker) Start:09-Jan-2022 Instruction Type:Patient Education Patient Instructions Indication:Current nonsmoker (Renamed from Current non-smoker) Start:04-Sep-2021 Instruction Type:Provider Instructions for Treatment How to Access Health Informa tion Online using Patient Portal and [employer] Apps Indication:Current nonsmoker (Renamed from Current non-smoker) Start:04-Sep-2021 Instruction Type:Patient Education Patient Instructions Indication:Sciatica of right side Start:27-Feb-2021 Instruction Type:Provider Instructions for Treatment How to Access Health Informa tion Online using Patient Portal and [employer] Apps Indication:Sciatica of right side Start:27-Feb-2021 Instruction Type:Patient Education Patient Instructions Indication:Sciatica of right side Start:27-Jan-2021 Instruction Type:Provider Instructions for Treatment How to Access Health Informa tion Online using Patient Portal and [employer] Apps Indication:Sciatica of right side Start:27-Jan-2021 Instruction Type:Patient Education How to access health informa tion online Indication:Exposure to SARS virus Start:26-Apr-2020 Instruction Type:Patient Education How to access health informa tion online - Detail Indication:Exposure to SARS virus Start:26-Apr-2020 Instruction Type:Patient Education Patient Instructions Indication:Exposure to SARS virus Start:26-Apr-2020 Instruction Type:Provider Instructions for Treatment How to access health informa tion online Indication:Hypercholesterolemia Start:02-Jan-2020 Instruction Type:Patient Education How to access health informa tion online - Detail Indication:Hypercholesterolemia Start:02-Jan-2020 Instruction Type:Patient Education Patient Instructions Indication:Hypercholesterolemia Start:02-Jan-2020 Instruction Type:Provider Instructions for Treatment How to access health informa tion online Indication:BMI 23.0-23.9, adult Start:10-Jul-2019 Instruction Type:Patient Education How to access health informa tion online - Detail Indication:BMI 23.0-23.9, adult Start:10-Jul-2019 Instruction Type:Patient Education Patient Instructions Indication:BMI 23.0-23.9, adult Start:10-Jul-2019 Instruction Type:Provider Instructions for Treatment How to access health informa tion online Indication:Hypothyroidism Start:13-Jan-2019 Instruction Type:Patient Education How to access health informa tion online - Detail Indication:Hypothyroidism Start:13-Jan-2019 Instruction Type:Patient Education Patient Instructions Indication:Hypothyroidism Start:13-Jan-2019 Instruction Type:Provider Instructions for Treatment How to access health informa tion online Indication:Well woman exam with routine gynecological exam Start:14-Jul-2018 Instruction Type:Patient Education How to access health informa tion online - Detail Indication:Well woman exam with routine gynecological exam Start:14-Jul-2018 Instruction Type:Patient Education Patient Instructions Indication:Well woman exam with routine gynecological exam Start:14-Jul-2018 Instruction Type:Provider Instructions for Treatment How to access health informa tion online Indication:Well woman exam with routine gynecological exam Start:18-Jun-2017 Instruction Type:Patient Education How to access health informa tion online - Detail Indication:Well woman exam with routine gynecological exam Start:18-Jun-2017 Instruction Type:Patient Education Patient Instructions Indication:Well woman exam with routine gynecological exam Start:18-Jun-2017 Instruction Type:Provider Instructions for Treatment How to access health informa tion online - Detail Indication:Hypercholesterolemia Start:17-Dec-2016 Instruction Type:Patient Education How to access health informa tion online Indication:Hypercholesterolemia Start:17-Dec-2016 Instruction Type:Patient Education How to access health informa tion online - Detail Indication:Hypercholesterolemia Start:17-Dec-2016 Instruction Type:Patient Education How to access health informa tion online Indication:Hypothyroidism Start:18-Jun-2016 Instruction Type:Patient Education How to access health informa tion online - Detail Indication:Hypothyroidism Start:18-Jun-2016 Instruction Type:Patient Education Patient Instructions Indication:Hypothyroidism Start:18-Jun-2016 Instruction Type:Provider Instructions for Treatment How to access health informa tion online Indication:Hypothyroidism Start:02-Dec-2015 Instruction Type:Patient Education How to access health informa tion online - Detail Indication:Hypothyroidism Start:02-Dec-2015 Instruction Type:Patient Education Patient Instructions Indication:Hypothyroidism Start:02-Dec-2015 Instruction Type:Provider Instructions for Treatment Patient Instructions Indication:Hypothyroidism Start:18-Jun-2015 Instruction Type:Provider Instructions for Treatment Patient Instructions Indication:Hypoglycemia Start:30-Apr-2015 Instruction Type:Provider Instructions for Treatment How to access health informa tion online Indication:Hypothyroidism Start:24-Dec-2014 Instruction Type:Patient Education How to access health informa tion online - Detail Indication:Hypothyroidism Start:24-Dec-2014 Instruction Type:Patient Education Patient Instructions Indication:Hypothyroidism Start:24-Dec-2014 Instruction Type:Provider Instructions for Treatment Patient Instructions Indication:Sinusitis, acute Start:19-Mar-2014 Instruction Type:Provider Instructions for Treatment How to access health informa tion online Indication:Sinusitis, acute Start:19-Mar-2014 Instruction Type:Patient Education How to access health informa tion online - Detail Indication:Sinusitis, acute Start:19-Mar-2014 Instruction Type:Patient Education How to access health informa tion online Indication:Hypothyroidism Start:15-Jan-2014 Instruction Type:Patient Education How to access health informa tion online - Detail Indication:Hypothyroidism Start:15-Jan-2014 Instruction Type:Patient Education Patient Instructions Indication:Hypothyroidism Start:15-Jan-2014 Instruction Type:Provider Instructions for Treatment Patient Instructions Indication:Hypothyroidism Start:17-Jul-2013 Instruction Type:Provider Instructions for Treatment Patient Instructions Indication:Sinusitis, acute Start:30-Mar-2013 Instruction Type:Provider Instructions for Treatment Patient Instructions Indication:Cough Start:30-Mar-2013 Instruction Type:Provider Instructions for Treatment Patient Instructions Indication:Well woman exam with routine gynecological exam Start:02-Jan-2013 Instruction Type:Provider Instructions for Treatment [facility]; [facility] Work Phone: Instructions* Name Dates Details Patient Instructions Indication:Current nonsmoker (Renamed from Current non-smoker) Start:17-Dec-2022 Instruction Type:Provider Instructions for Treatment How to Access Health Informa tion Online using Patient Portal and [employer] Apps Indication:Current nonsmoker (Renamed from Current non-smoker) Start:17-Dec-2022 Instruction Type:Patient Education Patient Instructions Indication:Current nonsmoker (Renamed from Current non-smoker) Start:07-Dec-2022 Instruction Type:Provider Instructions for Treatment How to Access Health Informa tion Online using Patient Portal and [employer] Apps Indication:Current nonsmoker (Renamed from Current non-smoker) Start:07-Dec-2022 Instruction Type:Patient Education Patient Instructions Indication:BMI 24.0-24.9, adult Start:18-Aug-2022 Instruction Type:Provider Instructions for Treatment How to Access Health Informa tion Online using Patient Portal and [employer] Apps Indication:BMI 24.0-24.9, adult Start:18-Aug-2022 Instruction Type:Patient Education Patient Instructions Indication:Current nonsmoker (Renamed from Current non-smoker) Start:05-Jun-2022 Instruction Type:Provider Instructions for Treatment How to Access Health Informa tion Online using Patient Portal and [employer] Apps Indication:Current nonsmoker (Renamed from Current non-smoker) Start:05-Jun-2022 Instruction Type:Patient Education Patient Instructions Indication:Unspecified Diagnosis Start:22-May-2022 Instruction Type:Provider Instructions for Treatment How to Access Health Informa tion Online using Patient Portal and [employer] Apps Indication:Unspecified Diagnosis Start:22-May-2022 Instruction Type:Patient Education Patient Instructions Indication:Current nonsmoker (Renamed from Current non-smoker) Start:09-Jan-2022 Instruction Type:Provider Instructions for Treatment How to Access Health Informa tion Online using Patient Portal and [employer] Apps Indication:Current nonsmoker (Renamed from Current non-smoker) Start:09-Jan-2022 Instruction Type:Patient Education Patient Instructions Indication:Current nonsmoker (Renamed from Current non-smoker) Start:04-Sep-2021 Instruction Type:Provider Instructions for Treatment How to Access Health Informa tion Online using Patient Portal and [employer] Apps Indication:Current nonsmoker (Renamed from Current non-smoker) Start:04-Sep-2021 Instruction Type:Patient Education Patient Instructions Indication:Sciatica of right side Start:27-Feb-2021 Instruction Type:Provider Instructions for Treatment How to Access Health Informa tion Online using Patient Portal and [employer] Apps Indication:Sciatica of right side Start:27-Feb-2021 Instruction Type:Patient Education Patient Instructions Indication:Sciatica of right side Start:27-Jan-2021 Instruction Type:Provider Instructions for Treatment How to Access Health Informa tion Online using Patient Portal and [employer] Apps Indication:Sciatica of right side Start:27-Jan-2021 Instruction Type:Patient Education How to access health informa tion online Indication:Exposure to SARS virus Start:26-Apr-2020 Instruction Type:Patient Education How to access health informa tion online - Detail Indication:Exposure to SARS virus Start:26-Apr-2020 Instruction Type:Patient Education Patient Instructions Indication:Exposure to SARS virus Start:26-Apr-2020 Instruction Type:Provider Instructions for Treatment How to access health informa tion online Indication:Hypercholesterolemia Start:02-Jan-2020 Instruction Type:Patient Education How to access health informa tion online - Detail Indication:Hypercholesterolemia Start:02-Jan-2020 Instruction Type:Patient Education Patient Instructions Indication:Hypercholesterolemia Start:02-Jan-2020 Instruction Type:Provider Instructions for Treatment How to access health informa tion online Indication:BMI 23.0-23.9, adult Start:10-Jul-2019 Instruction Type:Patient Education How to access health informa tion online - Detail Indication:BMI 23.0-23.9, adult Start:10-Jul-2019 Instruction Type:Patient Education Patient Instructions Indication:BMI 23.0-23.9, adult Start:10-Jul-2019 Instruction Type:Provider Instructions for Treatment How to access health informa tion online Indication:Hypothyroidism Start:13-Jan-2019 Instruction Type:Patient Education How to access health informa tion online - Detail Indication:Hypothyroidism Start:13-Jan-2019 Instruction Type:Patient Education Patient Instructions Indication:Hypothyroidism Start:13-Jan-2019 Instruction Type:Provider Instructions for Treatment How to access health informa tion online Indication:Well woman exam with routine gynecological exam Start:14-Jul-2018 Instruction Type:Patient Education How to access health informa tion online - Detail Indication:Well woman exam with routine gynecological exam Start:14-Jul-2018 Instruction Type:Patient Education Patient Instructions Indication:Well woman exam with routine gynecological exam Start:14-Jul-2018 Instruction Type:Provider Instructions for Treatment How to access health informa tion online Indication:Well woman exam with routine gynecological exam Start:18-Jun-2017 Instruction Type:Patient Education How to access health informa tion online - Detail Indication:Well woman exam with routine gynecological exam Start:18-Jun-2017 Instruction Type:Patient Education Patient Instructions Indication:Well woman exam with routine gynecological exam Start:18-Jun-2017 Instruction Type:Provider Instructions for Treatment How to access health informa tion online - Detail Indication:Hypercholesterolemia Start:17-Dec-2016 Instruction Type:Patient Education How to access health informa tion online Indication:Hypercholesterolemia Start:17-Dec-2016 Instruction Type:Patient Education How to access health informa tion online - Detail Indication:Hypercholesterolemia Start:17-Dec-2016 Instruction Type:Patient Education How to access health informa tion online Indication:Hypothyroidism Start:18-Jun-2016 Instruction Type:Patient Education How to access health informa tion online - Detail Indication:Hypothyroidism Start:18-Jun-2016 Instruction Type:Patient Education Patient Instructions Indication:Hypothyroidism Start:18-Jun-2016 Instruction Type:Provider Instructions for Treatment How to access health informa tion online Indication:Hypothyroidism Start:02-Dec-2015 Instruction Type:Patient Education How to access health informa tion online - Detail Indication:Hypothyroidism Start:02-Dec-2015 Instruction Type:Patient Education Patient Instructions Indication:Hypothyroidism Start:02-Dec-2015 Instruction Type:Provider Instructions for Treatment Patient Instructions Indication:Hypothyroidism Start:18-Jun-2015 Instruction Type:Provider Instructions for Treatment Patient Instructions Indication:Hypoglycemia Start:30-Apr-2015 Instruction Type:Provider Instructions for Treatment How to access health informa tion online Indication:Hypothyroidism Start:24-Dec-2014 Instruction Type:Patient Education How to access health informa tion online - Detail Indication:Hypothyroidism Start:24-Dec-2014 Instruction Type:Patient Education Patient Instructions Indication:Hypothyroidism Start:24-Dec-2014 Instruction Type:Provider Instructions for Treatment Patient Instructions Indication:Sinusitis, acute Start:19-Mar-2014 Instruction Type:Provider Instructions for Treatment How to access health informa tion online Indication:Sinusitis, acute Start:19-Mar-2014 Instruction Type:Patient Education How to access health informa tion online - Detail Indication:Sinusitis, acute Start:19-Mar-2014 Instruction Type:Patient Education How to access health informa tion online Indication:Hypothyroidism Start:15-Jan-2014 Instruction Type:Patient Education How to access health informa tion online - Detail Indication:Hypothyroidism Start:15-Jan-2014 Instruction Type:Patient Education Patient Instructions Indication:Hypothyroidism Start:15-Jan-2014 Instruction Type:Provider Instructions for Treatment Patient Instructions Indication:Hypothyroidism Start:17-Jul-2013 Instruction Type:Provider Instructions for Treatment Patient Instructions Indication:Sinusitis, acute Start:30-Mar-2013 Instruction Type:Provider Instructions for Treatment Patient Instructions Indication:Cough Start:30-Mar-2013 Instruction Type:Provider Instructions for Treatment Patient Instructions Indication:Well woman exam with routine gynecological exam Start:02-Jan-2013 Instruction Type:Provider Instructions for Treatment [facility]; [facility] Work Phone: Instructions* Name Dates Details Patient Instructions Indication:Current nonsmoker (Renamed from Current non-smoker) Start:17-Dec-2022 Instruction Type:Provider Instructions for Treatment How to Access Health Informa tion Online using Patient Portal and [employer] Apps Indication:Current nonsmoker (Renamed from Current non-smoker) Start:17-Dec-2022 Instruction Type:Patient Education Patient Instructions Indication:Current nonsmoker (Renamed from Current non-smoker) Start:07-Dec-2022 Instruction Type:Provider Instructions for Treatment How to Access Health Informa tion Online using Patient Portal and [employer] Indication:Current nonsmoker (Renamed from Current non-smoker) Start:07-Dec-2022 Instruction Type:Patient Education Patient Instructions Indication:BMI 24.0-24.9, adult Start:18-Aug-2022 Instruction Type:Provider Instructions for Treatment How to Access Health Informa tion Online using Patient Portal and [employer] Indication:BMI 24.0-24.9, adult Start:18-Aug-2022 Instruction Type:Patient Education Patient Instructions Indication:Current nonsmoker (Renamed from Current non-smoker) Start:05-Jun-2022 Instruction Type:Provider Instructions for Treatment How to Access Health Informa tion Online using Patient Portal and [employer] Apps Indication:Current nonsmoker (Renamed from Current non-smoker) Start:05-Jun-2022 Instruction Type:Patient Education Patient Instructions Indication:Unspecified Diagnosis Start:22-May-2022 Instruction Type:Provider Instructions for Treatment How to Access Health Informa tion Online using Patient Portal and [employer] Apps Indication:Unspecified Diagnosis Start:22-May-2022 Instruction Type:Patient Education Patient Instructions Indication:Current nonsmoker (Renamed from Current non-smoker) Start:09-Jan-2022 Instruction Type:Provider Instructions for Treatment How to Access Health Informa tion Online using Patient Portal and [employer] Apps Indication:Current nonsmoker (Renamed from Current non-smoker) Start:09-Jan-2022 Instruction Type:Patient Education Patient Instructions Indication:Current nonsmoker (Renamed from Current non-smoker) Start:04-Sep-2021 Instruction Type:Provider Instructions for Treatment How to Access Health Informa tion Online using Patient Portal and [employer] Apps Indication:Current nonsmoker (Renamed from Current non-smoker) Start:04-Sep-2021 Instruction Type:Patient Education Patient Instructions Indication:Sciatica of right side Start:27-Feb-2021 Instruction Type:Provider Instructions for Treatment How to Access Health Informa tion Online using Patient Portal and [employer] Apps Indication:Sciatica of right side Start:27-Feb-2021 Instruction Type:Patient Education Patient Instructions Indication:Sciatica of right side Start:27-Jan-2021 Instruction Type:Provider Instructions for Treatment How to Access Health Informa tion Online using Patient Portal and [employer] Apps Indication:Sciatica of right side Start:27-Jan-2021 Instruction Type:Patient Education How to access health informa tion online Indication:Exposure to SARS virus Start:26-Apr-2020 Instruction Type:Patient Education How to access health informa tion online - Detail Indication:Exposure to SARS virus Start:26-Apr-2020 Instruction Type:Patient Education Patient Instructions Indication:Exposure to SARS virus Start:26-Apr-2020 Instruction Type:Provider Instructions for Treatment How to access health informa tion online Indication:Hypercholesterolemia Start:02-Jan-2020 Instruction Type:Patient Education How to access health informa tion online - Detail Indication:Hypercholesterolemia Start:02-Jan-2020 Instruction Type:Patient Education Patient Instructions Indication:Hypercholesterolemia Start:02-Jan-2020 Instruction Type:Provider Instructions for Treatment How to access health informa tion online Indication:BMI 23.0-23.9, adult Start:10-Jul-2019 Instruction Type:Patient Education How to access health informa tion online - Detail Indication:BMI 23.0-23.9, adult Start:10-Jul-2019 Instruction Type:Patient Education Patient Instructions Indication:BMI 23.0-23.9, adult Start:10-Jul-2019 Instruction Type:Provider Instructions for Treatment How to access health informa tion online Indication:Hypothyroidism Start:13-Jan-2019 Instruction Type:Patient Education How to access health informa tion online - Detail Indication:Hypothyroidism Start:13-Jan-2019 Instruction Type:Patient Education Patient Instructions Indication:Hypothyroidism Start:13-Jan-2019 Instruction Type:Provider Instructions for Treatment How to access health informa tion online Indication:Well woman exam with routine gynecological exam Start:14-Jul-2018 Instruction Type:Patient Education How to access health informa tion online - Detail Indication:Well woman exam with routine gynecological exam Start:14-Jul-2018 Instruction Type:Patient Education Patient Instructions Indication:Well woman exam with routine gynecological exam Start:14-Jul-2018 Instruction Type:Provider Instructions for Treatment How to access health informa tion online Indication:Well woman exam with routine gynecological exam Start:18-Jun-2017 Instruction Type:Patient Education How to access health informa tion online - Detail Indication:Well woman exam with routine gynecological exam Start:18-Jun-2017 Instruction Type:Patient Education Patient Instructions Indication:Well woman exam with routine gynecological exam Start:18-Jun-2017 Instruction Type:Provider Instructions for Treatment How to access health informa tion online - Detail Indication:Hypercholesterolemia Start:17-Dec-2016 Instruction Type:Patient Education How to access health informa tion online Indication:Hypercholesterolemia Start:17-Dec-2016 Instruction Type:Patient Education How to access health informa tion online - Detail Indication:Hypercholesterolemia Start:17-Dec-2016 Instruction Type:Patient Education How to access health informa tion online Indication:Hypothyroidism Start:18-Jun-2016 Instruction Type:Patient Education How to access health informa tion online - Detail Indication:Hypothyroidism Start:18-Jun-2016 Instruction Type:Patient Education Patient Instructions Indication:Hypothyroidism Start:18-Jun-2016 Instruction Type:Provider Instructions for Treatment How to access health informa tion online Indication:Hypothyroidism Start:02-Dec-2015 Instruction Type:Patient Education How to access health informa tion online - Detail Indication:Hypothyroidism Start:02-Dec-2015 Instruction Type:Patient Education Patient Instructions Indication:Hypothyroidism Start:02-Dec-2015 Instruction Type:Provider Instructions for Treatment Patient Instructions Indication:Hypothyroidism Start:18-Jun-2015 Instruction Type:Provider Instructions for Treatment Patient Instructions Indication:Hypoglycemia Start:30-Apr-2015 Instruction Type:Provider Instructions for Treatment How to access health informa tion online Indication:Hypothyroidism Start:24-Dec-2014 Instruction Type:Patient Education How to access health informa tion online - Detail Indication:Hypothyroidism Start:24-Dec-2014 Instruction Type:Patient Education Patient Instructions Indication:Hypothyroidism Start:24-Dec-2014 Instruction Type:Provider Instructions for Treatment Patient Instructions Indication:Sinusitis, acute Start:19-Mar-2014 Instruction Type:Provider Instructions for Treatment How to access health informa tion online Indication:Sinusitis, acute Start:19-Mar-2014 Instruction Type:Patient Education How to access health informa tion online - Detail Indication:Sinusitis, acute Start:19-Mar-2014 Instruction Type:Patient Education How to access health informa tion online Indication:Hypothyroidism Start:15-Jan-2014 Instruction Type:Patient Education How to access health informa tion online - Detail Indication:Hypothyroidism Start:15-Jan-2014 Instruction Type:Patient Education Patient Instructions Indication:Hypothyroidism Start:15-Jan-2014 Instruction Type:Provider Instructions for Treatment Patient Instructions Indication:Hypothyroidism Start:17-Jul-2013 Instruction Type:Provider Instructions for Treatment Patient Instructions Indication:Sinusitis, acute Start:30-Mar-2013 Instruction Type:Provider Instructions for Treatment Patient Instructions Indication:Cough Start:30-Mar-2013 Instruction Type:Provider Instructions for Treatment Patient Instructions Indication:Well woman exam with routine gynecological exam Start:02-Jan-2013 Instruction Type:Provider Instructions for Treatment [facility] Work Phone: Instructions* Name Dates Details Patient Instructions Indication:BMI 24.0-24.9, adult Start:15-Mar-2023 Instruction Type:Provider Instructions for Treatment How to Access Health Informa tion Online using Patient Portal and [employer] Apps Indication:BMI 24.0-24.9, adult Start:15-Mar-2023 Instruction Type:Patient Education Patient Instructions Indication:Current nonsmoker (Renamed from Current non-smoker) Start:17-Dec-2022 Instruction Type:Provider Instructions for Treatment How to Access Health Informa tion Online using Patient Portal and [employer] Apps Indication:Current nonsmoker (Renamed from Current non-smoker) Start:17-Dec-2022 Instruction Type:Patient Education Patient Instructions Indication:Current nonsmoker (Renamed from Current non-smoker) Start:07-Dec-2022 Instruction Type:Provider Instructions for Treatment How to Access Health Informa tion Online using Patient Portal and [employer] Apps Indication:Current nonsmoker (Renamed from Current non-smoker) Start:07-Dec-2022 Instruction Type:Patient Education Patient Instructions Indication:BMI 24.0-24.9, adult Start:18-Aug-2022 Instruction Type:Provider Instructions for Treatment How to Access Health Informa tion Online using Patient Portal and [employer] Apps Indication:BMI 24.0-24.9, adult Start:18-Aug-2022 Instruction Type:Patient Education Patient Instructions Indication:Current nonsmoker (Renamed from Current non-smoker) Start:05-Jun-2022 Instruction Type:Provider Instructions for Treatment How to Access Health Informa tion Online using Patient Portal and [employer] Apps Indication:Current nonsmoker (Renamed from Current non-smoker) Start:05-Jun-2022 Instruction Type:Patient Education Patient Instructions Indication:Unspecified Diagnosis Start:22-May-2022 Instruction Type:Provider Instructions for Treatment How to Access Health Informa tion Online using Patient Portal and [employer]rd [employer] Apps Indication:Unspecified Diagnosis Start:22-May-2022 Instruction Type:Patient Education Patient Instructions Indication:Current nonsmoker (Renamed from Current non-smoker) Start:09-Jan-2022 Instruction Type:Provider Instructions for Treatment How to Access Health Informa tion Online using Patient Portal and [employer] Apps Indication:Current nonsmoker (Renamed from Current non-smoker) Start:09-Jan-2022 Instruction Type:Patient Education Patient Instructions Indication:Current nonsmoker (Renamed from Current non-smoker) Start:04-Sep-2021 Instruction Type:Provider Instructions for Treatment How to Access Health Informa tion Online using Patient Portal and [employer] Apps Indication:Current nonsmoker (Renamed from Current non-smoker) Start:04-Sep-2021 Instruction Type:Patient Education Patient Instructions Indication:Sciatica of right side Start:27-Feb-2021 Instruction Type:Provider Instructions for Treatment How to Access Health Informa tion Online using Patient Portal and [employer] Apps Indication:Sciatica of right side Start:27-Feb-2021 Instruction Type:Patient Education Patient Instructions Indication:Sciatica of right side Start:27-Jan-2021 Instruction Type:Provider Instructions for Treatment How to Access Health Informa tion Online using Patient Portal and [employer] Apps Indication:Sciatica of right side Start:27-Jan-2021 Instruction Type:Patient Education How to access health informa tion online Indication:Exposure to SARS virus Start:26-Apr-2020 Instruction Type:Patient Education How to access health informa tion online - Detail Indication:Exposure to SARS virus Start:26-Apr-2020 Instruction Type:Patient Education Patient Instructions Indication:Exposure to SARS virus Start:26-Apr-2020 Instruction Type:Provider Instructions for Treatment How to access health informa tion online Indication:Hypercholesterolemia Start:02-Jan-2020 Instruction Type:Patient Education How to access health informa tion online - Detail Indication:Hypercholesterolemia Start:02-Jan-2020 Instruction Type:Patient Education Patient Instructions Indication:Hypercholesterolemia Start:02-Jan-2020 Instruction Type:Provider Instructions for Treatment How to access health informa tion online Indication:BMI 23.0-23.9, adult Start:10-Jul-2019 Instruction Type:Patient Education How to access health informa tion online - Detail Indication:BMI 23.0-23.9, adult Start:10-Jul-2019 Instruction Type:Patient Education Patient Instructions Indication:BMI 23.0-23.9, adult Start:10-Jul-2019 Instruction Type:Provider Instructions for Treatment How to access health informa tion online Indication:Hypothyroidism Start:13-Jan-2019 Instruction Type:Patient Education How to access health informa tion online - Detail Indication:Hypothyroidism Start:13-Jan-2019 Instruction Type:Patient Education Patient Instructions Indication:Hypothyroidism Start:13-Jan-2019 Instruction Type:Provider Instructions for Treatment How to access health informa tion online Indication:Well woman exam with routine gynecological exam Start:14-Jul-2018 Instruction Type:Patient Education How to access health informa tion online - Detail Indication:Well woman exam with routine gynecological exam Start:14-Jul-2018 Instruction Type:Patient Education Patient Instructions Indication:Well woman exam with routine gynecological exam Start:14-Jul-2018 Instruction Type:Provider Instructions for Treatment How to access health informa tion online Indication:Well woman exam with routine gynecological exam Start:18-Jun-2017 Instruction Type:Patient Education How to access health informa tion online - Detail Indication:Well woman exam with routine gynecological exam Start:18-Jun-2017 Instruction Type:Patient Education Patient Instructions Indication:Well woman exam with routine gynecological exam Start:18-Jun-2017 Instruction Type:Provider Instructions for Treatment How to access health informa tion online - Detail Indication:Hypercholesterolemia Start:17-Dec-2016 Instruction Type:Patient Education How to access health informa tion online Indication:Hypercholesterolemia Start:17-Dec-2016 Instruction Type:Patient Education How to access health informa tion online - Detail Indication:Hypercholesterolemia Start:17-Dec-2016 Instruction Type:Patient Education How to access health informa tion online Indication:Hypothyroidism Start:18-Jun-2016 Instruction Type:Patient Education How to access health informa tion online - Detail Indication:Hypothyroidism Start:18-Jun-2016 Instruction Type:Patient Education Patient Instructions Indication:Hypothyroidism Start:18-Jun-2016 Instruction Type:Provider Instructions for Treatment How to access health informa tion online Indication:Hypothyroidism Start:02-Dec-2015 Instruction Type:Patient Education How to access health informa tion online - Detail Indication:Hypothyroidism Start:02-Dec-2015 Instruction Type:Patient Education Patient Instructions Indication:Hypothyroidism Start:02-Dec-2015 Instruction Type:Provider Instructions for Treatment Patient Instructions Indication:Hypothyroidism Start:18-Jun-2015 Instruction Type:Provider Instructions for Treatment Patient Instructions Indication:Hypoglycemia Start:30-Apr-2015 Instruction Type:Provider Instructions for Treatment How to access health informa tion online Indication:Hypothyroidism Start:24-Dec-2014 Instruction Type:Patient Education How to access health informa tion online - Detail Indication:Hypothyroidism Start:24-Dec-2014 Instruction Type:Patient Education Patient Instructions Indication:Hypothyroidism Start:24-Dec-2014 Instruction Type:Provider Instructions for Treatment Patient Instructions Indication:Sinusitis, acute Start:19-Mar-2014 Instruction Type:Provider Instructions for Treatment How to access health informa tion online Indication:Sinusitis, acute Start:19-Mar-2014 Instruction Type:Patient Education How to access health informa tion online - Detail Indication:Sinusitis, acute Start:19-Mar-2014 Instruction Type:Patient Education How to access health informa tion online Indication:Hypothyroidism Start:15-Jan-2014 Instruction Type:Patient Education How to access health informa tion online - Detail Indication:Hypothyroidism Start:15-Jan-2014 Instruction Type:Patient Education Patient Instructions Indication:Hypothyroidism Start:15-Jan-2014 Instruction Type:Provider Instructions for Treatment Patient Instructions Indication:Hypothyroidism Start:17-Jul-2013 Instruction Type:Provider Instructions for Treatment Patient Instructions Indication:Sinusitis, acute Start:30-Mar-2013 Instruction Type:Provider Instructions for Treatment Patient Instructions Indication:Cough Start:30-Mar-2013 Instruction Type:Provider Instructions for Treatment Patient Instructions Indication:Well woman exam with routine gynecological exam Start:02-Jan-2013 Instruction Type:Provider Instructions for Treatment [facility]; [facility] Work Phone: progress note No data available for this section [facility] Family History No Family History Records FoundUnknown Family Member Name Dates Details 2 maternal aunts: breast can cer Comments:in 70's Status:Active Brother 1 Comments:afib Status:Active Daughter 1 Comments:venous malformatino on leg Status:Active Father Comments:COPD CAD Status:Active maternal cousin: breast canc er Comments:in 60's Status:Active Maternal Grandfather Status:Active Mother Status:Active Sister 1 Status:Active Son 1 Status:Active Son 2 Status:Active Unknown Family Member Name Dates Details 2 maternal aunts: breast can cer Comments:in 70's Status:Active Brother 1 Comments:afib Status:Active Daughter 1 Comments:venous malformatino on leg Status:Active Father Comments:COPD CAD Status:Active maternal cousin: breast canc er Comments:in 60's Status:Active Maternal Grandfather Status:Active Mother Status:Active Sister 1 Status:Active Son 1 Status:Active Son 2 Status:Active Unknown Family Member Name Dates Details 2 maternal aunts: breast can cer Comments:in 70's Status:Active Brother 1 Comments:afib Status:Active Daughter 1 Comments:venous malformatino on leg Status:Active Father Comments:COPD CAD Status:Active maternal cousin: breast canc er Comments:in 60's Status:Active Maternal Grandfather Status:Active Mother Status:Active Sister 1 Status:Active Son 1 Status:Active Son 2 Status:Active Unknown Family Member Name Dates Details 2 maternal aunts: breast can cer Comments:in 70's Status:Active Brother 1 Comments:afib Status:Active Daughter 1 Comments:venous malformatino on leg Status:Active Father Comments:COPD CAD Status:Active maternal cousin: breast canc er Comments:in 60's Status:Active Maternal Grandfather Status:Active Mother Status:Active Sister 1 Status:Active Son 1 Status:Active Son 2 Status:Active Unknown Family Member Name Dates Details 2 maternal aunts: breast can cer Comments:in 70's Status:Active Brother 1 Comments:afib Status:Active Daughter 1 Comments:venous malformatino on leg Status:Active Father Comments:COPD CAD Status:Active maternal cousin: breast canc er Comments:in 60's Status:Active Maternal Grandfather Status:Active Mother Status:Active Sister 1 Status:Active Son 1 Status:Active Son 2 Status:Active Unknown Family Member Name Dates Details 2 maternal aunts: breast can cer Comments:in 70's Status:Active Brother 1 Comments:afib Status:Active Daughter 1 Comments:venous malformatino on leg Status:Active Father Comments:COPD CAD Status:Active maternal cousin: breast canc er Comments:in 60's Status:Active Maternal Grandfather Status:Active Mother Status:Active Sister 1 Status:Active Son 1 Status:Active Son 2 Status:Active Unknown Family Member Name Dates Details 2 maternal aunts: breast can cer Comments:in 70's Status:Active Brother 1 Comments:afib Status:Active Daughter 1 Comments:venous malformatino on leg Status:Active Father Comments:COPD CAD Status:Active maternal cousin: breast canc er Comments:in 60's Status:Active Maternal Grandfather Status:Active Mother Status:Active Sister 1 Status:Active Son 1 Status:Active Son 2 Status:Active Unknown Family Member Name Dates Details 2 maternal aunts: breast can cer Comments:in 70's Status:Active Brother 1 Comments:afib Status:Active Daughter 1 Comments:venous malformatino on leg Status:Active Father Comments:COPD CAD Status:Active maternal cousin: breast canc er Comments:in 60's Status:Active Maternal Grandfather Status:Active Mother Status:Active Sister 1 Status:Active Son 1 Status:Active Son 2 Status:Active Unknown Family Member Name Dates Details 2 maternal aunts: breast can cer Comments:in 70's Status:Active Brother 1 Comments:afib Status:Active Daughter 1 Comments:venous malformatino on leg Status:Active Father Comments:COPD CAD Status:Active maternal cousin: breast canc er Comments:in 60's Status:Active Maternal Grandfather Status:Active Mother Status:Active Sister 1 Status:Active Son 1 Status:Active Son 2 Status:Active Unknown Family Member Name Dates Details 2 maternal aunts: breast can cer Comments:in 70's Status:Active Brother 1 Comments:afib Status:Active Daughter 1 Comments:venous malformatino on leg Status:Active Father Comments:COPD CAD Status:Active maternal cousin: breast canc er Comments:in 60's Status:Active Maternal Grandfather Status:Active Mother Status:Active Sister 1 Status:Active Son 1 Status:Active Son 2 Status:Active Unknown Family Member Name Dates Details 2 maternal aunts: breast can cer Comments:in 70's Status:Active Brother 1 Comments:afib Status:Active Daughter 1 Comments:venous malformatino on leg Status:Active Father Comments:COPD CAD Status:Active maternal cousin: breast canc er Comments:in 60's Status:Active Maternal Grandfather Status:Active Mother Status:Active Sister 1 Status:Active Son 1 Status:Active Son 2 Status:Active Unknown Family Member Name Dates Details 2 maternal aunts: breast can cer Comments:in 70's Status:Active Brother 1 Comments:afib Status:Active Daughter 1 Comments:venous malformatino on leg Status:Active Father Comments:COPD CAD Status:Active maternal cousin: breast canc er Comments:in 60's Status:Active Maternal Grandfather Status:Active Mother Status:Active Sister 1 Status:Active Son 1 Status:Active Son 2 Status:Active Unknown Family Member Name Dates Details 2 maternal aunts: breast can cer Comments:in 70's Status:Active Brother 1 Comments:afib Status:Active Daughter 1 Comments:venous malformatino on leg Status:Active Father Comments:COPD CAD Status:Active maternal cousin: breast canc er Comments:in 60's Status:Active Maternal Grandfather Status:Active Mother Status:Active Sister 1 Status:Active Son 1 Status:Active Son 2 Status:Active Unknown Family Member Name Dates Details 2 maternal aunts: breast can cer Comments:in 70's Status:Active Brother 1 Comments:afib Status:Active Daughter 1 Comments:venous malformatino on leg Status:Active Father Comments:COPD CAD Status:Active maternal cousin: breast canc er Comments:in 60's Status:Active Maternal Grandfather Status:Active Mother Status:Active Sister 1 Status:Active Son 1 Status:Active Son 2 Status:Active Unknown Family Member Name Dates Details 2 maternal aunts: breast can cer Comments:in 70's Status:Active Brother 1 Comments:afib Status:Active Daughter 1 Comments:venous malformatino on leg Status:Active Father Comments:COPD CAD Status:Active maternal cousin: breast canc er Comments:in 60's Status:Active Maternal Grandfather Status:Active Mother Status:Active Sister 1 Status:Active Son 1 Status:Active Son 2 Status:Active Unknown Family Member Name Dates Details 2 maternal aunts: breast can cer Comments:in 70's Status:Active Brother 1 Comments:afib Status:Active Daughter 1 Comments:venous malformatino on leg Status:Active Father Comments:COPD CAD Status:Active maternal cousin: breast canc er Comments:in 60's Status:Active Maternal Grandfather Status:Active Mother Status:Active Sister 1 Status:Active Son 1 Status:Active Son 2 Status:Active Unknown Family Member Name Dates Details 2 maternal aunts: breast can cer Comments:in 70's Status:Active Brother 1 Comments:afib Status:Active Daughter 1 Comments:venous malformatino on leg Status:Active Father Comments:COPD CAD Status:Active maternal cousin: breast canc er Comments:in 60's Status:Active Maternal Grandfather Status:Active Mother Status:Active Sister 1 Status:Active Son 1 Status:Active Son 2 Status:Active Unknown Family Member Name Dates Details 2 maternal aunts: breast can cer Comments:in 70's Status:Active Brother 1 Comments:afib Status:Active Daughter 1 Comments:venous malformatino on leg Status:Active Father Comments:COPD CAD Status:Active maternal cousin: breast canc er Comments:in 60's Status:Active Maternal Grandfather Status:Active Mother Status:Active Sister 1 Status:Active Son 1 Status:Active Son 2 Status:Active Unknown Family Member Name Dates Details 2 maternal aunts: breast can cer Comments:in 70's Status:Active Brother 1 Comments:afib Status:Active Daughter 1 Comments:venous malformatino on leg Status:Active Father Comments:COPD CAD Status:Active maternal cousin: breast canc er Comments:in 60's Status:Active Maternal Grandfather Status:Active Mother Status:Active Sister 1 Status:Active Son 1 Status:Active Son 2 Status:Active Unknown Family Member Name Dates Details 2 maternal aunts: breast can cer Comments:in 70's Status:Active Brother 1 Comments:afib Status:Active Daughter 1 Comments:venous malformatino on leg Status:Active Father Comments:COPD CAD Status:Active maternal cousin: breast canc er Comments:in 60's Status:Active Maternal Grandfather Status:Active Mother Status:Active Sister 1 Status:Active Son 1 Status:Active Son 2 Status:Active Unknown Family Member Name Dates Details 2 maternal aunts: breast can cer Comments:in 70's Status:Active Brother 1 Comments:afib Status:Active Daughter 1 Comments:venous malformatino on leg Status:Active Father Comments:COPD CAD Status:Active maternal cousin: breast canc er Comments:in 60's Status:Active Maternal Grandfather Status:Active Mother Status:Active Sister 1 Status:Active Son 1 Status:Active Son 2 Status:Active Unknown Family Member Name Dates Details 2 maternal aunts: breast can cer Comments:in 70's Status:Active Brother 1 Comments:afib Status:Active Daughter 1 Comments:venous malformatino on leg Status:Active Father Comments:COPD CAD Status:Active maternal cousin: breast canc er Comments:in 60's Status:Active Maternal Grandfather Status:Active Mother Status:Active Sister 1 Status:Active Son 1 Status:Active Son 2 Status:Active Unknown Family Member Name Dates Details 2 maternal aunts: breast can cer Comments:in 70's Status:Active Brother 1 Comments:afib Status:Active Daughter 1 Comments:venous malformatino on leg Status:Active Father Comments:COPD CAD Status:Active maternal cousin: breast canc er Comments:in 60's Status:Active Maternal Grandfather Status:Active Mother Status:Active Sister 1 Status:Active Son 1 Status:Active Son 2 Status:Active Unknown Family Member Name Dates Details 2 maternal aunts: breast can cer Comments:in 70's Status:Active Brother 1 Comments:afib Status:Active Daughter 1 Comments:venous malformatino on leg Status:Active Father Comments:COPD CAD Status:Active maternal cousin: breast canc er Comments:in 60's Status:Active Maternal Grandfather Status:Active Mother Status:Active Sister 1 Status:Active Son 1 Status:Active Son 2 Status:Active Unknown Family Member Name Dates Details 2 maternal aunts: breast can cer Comments:in 70's Status:Active Brother 1 Comments:afib Status:Active Daughter 1 Comments:venous malformatino on leg Status:Active Father Comments:COPD CAD Status:Active maternal cousin: breast canc er Comments:in 60's Status:Active Maternal Grandfather Status:Active Mother Status:Active Sister 1 Status:Active Son 1 Status:Active Son 2 Status:Active Unknown Family Member Name Dates Details 2 maternal aunts: breast can cer Comments:in 70's Status:Active Brother 1 Comments:afib Status:Active Daughter 1 Comments:venous malformatino on leg Status:Active Father Comments:COPD CAD Status:Active maternal cousin: breast canc er Comments:in 60's Status:Active Maternal Grandfather Status:Active Mother Status:Active Sister 1 Status:Active Son 1 Status:Active Son 2 Status:Active Unknown Family Member Name Dates Details 2 maternal aunts: breast can cer Comments:in 70's Status:Active Brother 1 Comments:afib Status:Active Daughter 1 Comments:venous malformatino on leg Status:Active Father Comments:COPD CAD Status:Active maternal cousin: breast canc er Comments:in 60's Status:Active Maternal Grandfather Status:Active Mother Status:Active Sister 1 Status:Active Son 1 Status:Active Son 2 Status:Active Unknown Family Member Name Dates Details 2 maternal aunts: breast can cer Comments:in 70's Status:Active Brother 1 Comments:afib Status:Active Daughter 1 Comments:venous malformatino on leg Status:Active Father Comments:COPD CAD Status:Active maternal cousin: breast canc er Comments:in 60's Status:Active Maternal Grandfather Status:Active Mother Status:Active Sister 1 Status:Active Son 1 Status:Active Son 2 Status:Active Unknown Family Member Name Dates Details 2 maternal aunts: breast can cer Comments:in 70's Status:Active Brother 1 Comments:afib Status:Active Daughter 1 Comments:venous malformatino on leg Status:Active Father Comments:COPD CAD Status:Active maternal cousin: breast canc er Comments:in 60's Status:Active Maternal Grandfather Status:Active Mother Status:Active Sister 1 Status:Active Son 1 Status:Active Son 2 Status:Active Unknown Family Member Name Dates Details 2 maternal aunts: breast can cer Comments:in 70's Status:Active Brother 1 Comments:afib Status:Active Daughter 1 Comments:venous malformatino on leg Status:Active Father Comments:COPD CAD Status:Active maternal cousin: breast canc er Comments:in 60's Status:Active Maternal Grandfather Status:Active Mother Status:Active Sister 1 Status:Active Son 1 Status:Active Son 2 Status:Active Unknown Family Member Name Dates Details 2 maternal aunts: breast can cer Comments:in 70's Status:Active Brother 1 Comments:afib Status:Active Daughter 1 Comments:venous malformatino on leg Status:Active Father Comments:COPD CAD Status:Active maternal cousin: breast canc er Comments:in 60's Status:Active Maternal Grandfather Status:Active Mother Status:Active Sister 1 Status:Active Son 1 Status:Active Son 2 Status:Active Unknown Family Member Name Dates Details 2 maternal aunts: breast can cer Comments:in 70's Status:Active Brother 1 Comments:afib Status:Active Daughter 1 Comments:venous malformatino on leg Status:Active Father Comments:COPD CAD Status:Active maternal cousin: breast canc er Comments:in 60's Status:Active Maternal Grandfather Status:Active Mother Status:Active Sister 1 Status:Active Son 1 Status:Active Son 2 Status:Active Unknown Family Member Name Dates Details 2 maternal aunts: breast can cer Comments:in 70's Status:Active Brother 1 Comments:afib Status:Active Daughter 1 Comments:venous malformatino on leg Status:Active Father Comments:COPD CAD Status:Active maternal cousin: breast canc er Comments:in 60's Status:Active Maternal Grandfather Status:Active Mother Status:Active Sister 1 Status:Active Son 1 Status:Active Son 2 Status:Active Unknown Family Member Name Dates Details 2 maternal aunts: breast can cer Comments:in 70's Status:Active Brother 1 Comments:afib Status:Active Daughter 1 Comments:venous malformatino on leg Status:Active Father Comments:COPD CAD Status:Active maternal cousin: breast canc er Comments:in 60's Status:Active Maternal Grandfather Status:Active Mother Status:Active Sister 1 Status:Active Son 1 Status:Active Son 2 Status:Active Unknown Family Member Name Dates Details 2 maternal aunts: breast can cer Comments:in 70's Status:Active Brother 1 Comments:afib Status:Active Daughter 1 Comments:venous malformatino on leg Status:Active Father Comments:COPD CAD Status:Active maternal cousin: breast canc er Comments:in 60's Status:Active Maternal Grandfather Status:Active Mother Status:Active Sister 1 Status:Active Son 1 Status:Active Son 2 Status:Active Relationship Condition Age at Onset Recorded Date/T leann father Cerebrovascular accident (CVA) 82 Unknown Family Member Name Dates Details 2 maternal aunts: breast can cer Comments:in 70's Status:Active Brother 1 Comments:afib Status:Active Daughter 1 Comments:venous malformatino on leg Status:Active Father Comments:COPD CAD Status:Active maternal cousin: breast canc er Comments:in 60's Status:Active Maternal Grandfather Status:Active Mother Status:Active Sister 1 Status:Active Son 1 Status:Active Son 2 Status:Active Unknown Family Member Name Dates Details 2 maternal aunts: breast can cer Comments:in 70's Status:Active Brother 1 Comments:afib Status:Active Daughter 1 Comments:venous malformatino on leg Status:Active Father Comments:COPD CAD Status:Active maternal cousin: breast canc er Comments:in 60's Status:Active Maternal Grandfather Status:Active Mother Status:Active Sister 1 Status:Active Son 1 Status:Active Son 2 Status:Active Unknown Family Member Name Dates Details 2 maternal aunts: breast can cer Comments:in 70's Status:Active Brother 1 Comments:afib Status:Active Daughter 1 Comments:venous malformatino on leg Status:Active Father Comments:COPD CAD Status:Active maternal cousin: breast canc er Comments:in 60's Status:Active Maternal Grandfather Status:Active Mother Status:Active Sister 1 Status:Active Son 1 Status:Active Son 2 Status:Active Unknown Family Member Name Dates Details 2 maternal aunts: breast can cer Comments:in 70's Status:Active Brother 1 Comments:afib Status:Active Daughter 1 Comments:venous malformatino on leg Status:Active Father Comments:COPD CAD Status:Active maternal cousin: breast canc er Comments:in 60's Status:Active Maternal Grandfather Status:Active Mother Status:Active Sister 1 Status:Active Son 1 Status:Active Son 2 Status:Active Unknown Family Member Name Dates Details 2 maternal aunts: breast can cer Comments:in 70's Status:Active Brother 1 Comments:afib Status:Active Daughter 1 Comments:venous malformatino on leg Status:Active Father Comments:COPD CAD Status:Active maternal cousin: breast canc er Comments:in 60's Status:Active Maternal Grandfather Status:Active Mother Status:Active Sister 1 Status:Active Son 1 Status:Active Son 2 Status:Active Unknown Family Member Name Dates Details 2 maternal aunts: breast can cer Comments:in 70's Status:Active Brother 1 Comments:afib Status:Active Daughter 1 Comments:venous malformatino on leg Status:Active Father Comments:COPD CAD Status:Active maternal cousin: breast canc er Comments:in 60's Status:Active Maternal Grandfather Status:Active Mother Status:Active Sister 1 Status:Active Son 1 Status:Active Son 2 Status:Active Unknown Family Member Name Dates Details 2 maternal aunts: breast can cer Comments:in 70's Status:Active Brother 1 Comments:afib Status:Active Daughter 1 Comments:venous malformatino on leg Status:Active Father Comments:COPD CAD Status:Active maternal cousin: breast canc er Comments:in 60's Status:Active Maternal Grandfather Status:Active Mother Status:Active Sister 1 Status:Active Son 1 Status:Active Son 2 Status:Active Unknown Family Member Name Dates Details 2 maternal aunts: breast can cer Comments:in 70's Status:Active Brother 1 Comments:afib Status:Active Daughter 1 Comments:venous malformatino on leg Status:Active Father Comments:COPD CAD Status:Active maternal cousin: breast canc er Comments:in 60's Status:Active Maternal Grandfather Status:Active Mother Status:Active Sister 1 Status:Active Son 1 Status:Active Son 2 Status:Active Unknown Family Member Name Dates Details 2 maternal aunts: breast can cer Comments:in 70's Status:Active Brother 1 Comments:afib Status:Active Daughter 1 Comments:venous malformatino on leg Status:Active Father Comments:COPD CAD Status:Active maternal cousin: breast canc er Comments:in 60's Status:Active Maternal Grandfather Status:Active Mother Status:Active Sister 1 Status:Active Son 1 Status:Active Son 2 Status:Active Unknown Family Member Name Dates Details 2 maternal aunts: breast can cer Comments:in 70's Status:Active Brother 1 Comments:afib Status:Active Daughter 1 Comments:venous malformatino on leg Status:Active Father Comments:COPD CAD Status:Active maternal cousin: breast canc er Comments:in 60's Status:Active Maternal Grandfather Status:Active Mother Status:Active Sister 1 Status:Active Son 1 Status:Active Son 2 Status:Active Unknown Family Member Name Dates Details 2 maternal aunts: breast can cer Comments:in 70's Status:Active Brother 1 Comments:afib Status:Active Daughter 1 Comments:venous malformatino on leg Status:Active Father Comments:COPD CAD Status:Active maternal cousin: breast canc er Comments:in 60's Status:Active Maternal Grandfather Status:Active Mother Status:Active Sister 1 Status:Active Son 1 Status:Active Son 2 Status:Active Unknown Family Member Name Dates Details 2 maternal aunts: breast can cer Comments:in 70's Status:Active Brother 1 Comments:afib Status:Active Daughter 1 Comments:venous malformatino on leg Status:Active Father Comments:COPD CAD Status:Active maternal cousin: breast canc er Comments:in 60's Status:Active Maternal Grandfather Status:Active Mother Status:Active Sister 1 Status:Active Son 1 Status:Active Son 2 Status:Active Unknown Family Member Name Dates Details 2 maternal aunts: breast can cer Comments:in 70's Status:Active Brother 1 Comments:afib Status:Active Daughter 1 Comments:venous malformatino on leg Status:Active Father Comments:COPD CAD Status:Active maternal cousin: breast canc er Comments:in 60's Status:Active Maternal Grandfather Status:Active Mother Status:Active Sister 1 Status:Active Son 1 Status:Active Son 2 Status:Active Unknown Family Member Name Dates Details 2 maternal aunts: breast can cer Comments:in 70's Status:Active Brother 1 Comments:afib Status:Active Daughter 1 Comments:venous malformatino on leg Status:Active Father Comments:COPD CAD Status:Active maternal cousin: breast canc er Comments:in 60's Status:Active Maternal Grandfather Status:Active Mother Status:Active Sister 1 Status:Active Son 1 Status:Active Son 2 Status:Active Unknown Family Member Name Dates Details 2 maternal aunts: breast can cer Comments:in 70's Status:Active Brother 1 Comments:afib Status:Active Daughter 1 Comments:venous malformatino on leg Status:Active Father Comments:COPD CAD Status:Active maternal cousin: breast canc er Comments:in 60's Status:Active Maternal Grandfather Status:Active Mother Status:Active Sister 1 Status:Active Son 1 Status:Active Son 2 Status:Active Unknown Family Member Name Dates Details 2 maternal aunts: breast can cer Comments:in 70's Status:Active Brother 1 Comments:afib Status:Active Daughter 1 Comments:venous malformatino on leg Status:Active Father Comments:COPD CAD Status:Active maternal cousin: breast canc er Comments:in 60's Status:Active Maternal Grandfather Status:Active Mother Status:Active Sister 1 Status:Active Son 1 Status:Active Son 2 Status:Active Instructions Name Dates Details Well woman exam with routine gynecological exam : How to access health information online Indication:Well woman exam with routine gynecological exam Well woman exam with routine gynecological exam : How to access health information online - Detail Indication:Well woman exam with routine gynecological exam Well woman exam with routine gynecological exam : Patient Instructions Indication:Well woman exam with routine gynecological exam Hypercholesterolemia : How t o access health information online - Detail Indication:Hypercholesterolemia Hypercholesterolemia : How t o access health information online Indication:Hypercholesterolemia Hypothyroidism : How to acce ss health information online Indication:Hypothyroidism Hypothyroidism : How to acce ss health information online - Detail Indication:Hypothyroidism Hypothyroidism : Patient Ins tructions Indication:Hypothyroidism Hypoglycemia : Patient Instr uctions Indication:Hypoglycemia Sinusitis, acute : Patient I nstructions Indication:Sinusitis, acute Sinusitis, acute : How to ac cess health information online Indication:Sinusitis, acute Sinusitis, acute : How to ac cess health information online - Detail Indication:Sinusitis, acute Cough : Patient Instructions Indication:Cough Name Dates Details Well woman exam with routine gynecological exam : How to access health information online Indication:Well woman exam with routine gynecological exam Well woman exam with routine gynecological exam : How to access health information online - Detail Indication:Well woman exam with routine gynecological exam Well woman exam with routine gynecological exam : Patient Instructions Indication:Well woman exam with routine gynecological exam Hypercholesterolemia : How t o access health information online - Detail Indication:Hypercholesterolemia Hypercholesterolemia : How t o access health information online Indication:Hypercholesterolemia Hypothyroidism : How to acce ss health information online Indication:Hypothyroidism Hypothyroidism : How to acce ss health information online - Detail Indication:Hypothyroidism Hypothyroidism : Patient Ins tructions Indication:Hypothyroidism Hypoglycemia : Patient Instr uctions Indication:Hypoglycemia Sinusitis, acute : Patient I nstructions Indication:Sinusitis, acute Sinusitis, acute : How to ac cess health information online Indication:Sinusitis, acute Sinusitis, acute : How to ac cess health information online - Detail Indication:Sinusitis, acute Cough : Patient Instructions Indication:Cough Name Dates Details Well woman exam with routine gynecological exam : How to access health information online Indication:Well woman exam with routine gynecological exam Well woman exam with routine gynecological exam : How to access health information online - Detail Indication:Well woman exam with routine gynecological exam Well woman exam with routine gynecological exam : Patient Instructions Indication:Well woman exam with routine gynecological exam Hypercholesterolemia : How t o access health information online - Detail Indication:Hypercholesterolemia Hypercholesterolemia : How t o access health information online Indication:Hypercholesterolemia Hypothyroidism : How to acce ss health information online Indication:Hypothyroidism Hypothyroidism : How to acce ss health information online - Detail Indication:Hypothyroidism Hypothyroidism : Patient Ins tructions Indication:Hypothyroidism Hypoglycemia : Patient Instr uctions Indication:Hypoglycemia Sinusitis, acute : Patient I nstructions Indication:Sinusitis, acute Sinusitis, acute : How to ac cess health information online Indication:Sinusitis, acute Sinusitis, acute : How to ac cess health information online - Detail Indication:Sinusitis, acute Cough : Patient Instructions Indication:Cough Name Dates Details Well woman exam with routine gynecological exam : How to access health information online Indication:Well woman exam with routine gynecological exam Well woman exam with routine gynecological exam : How to access health information online - Detail Indication:Well woman exam with routine gynecological exam Well woman exam with routine gynecological exam : Patient Instructions Indication:Well woman exam with routine gynecological exam Hypercholesterolemia : How t o access health information online - Detail Indication:Hypercholesterolemia Hypercholesterolemia : How t o access health information online Indication:Hypercholesterolemia Hypothyroidism : How to acce ss health information online Indication:Hypothyroidism Hypothyroidism : How to acce ss health information online - Detail Indication:Hypothyroidism Hypothyroidism : Patient Ins tructions Indication:Hypothyroidism Hypoglycemia : Patient Instr uctions Indication:Hypoglycemia Sinusitis, acute : Patient I nstructions Indication:Sinusitis, acute Sinusitis, acute : How to ac cess health information online Indication:Sinusitis, acute Sinusitis, acute : How to ac cess health information online - Detail Indication:Sinusitis, acute Cough : Patient Instructions Indication:Cough Name Dates Details Well woman exam with routine gynecological exam : How to access health information online Indication:Well woman exam with routine gynecological exam Well woman exam with routine gynecological exam : How to access health information online - Detail Indication:Well woman exam with routine gynecological exam Well woman exam with routine gynecological exam : Patient Instructions Indication:Well woman exam with routine gynecological exam Hypercholesterolemia : How t o access health information online - Detail Indication:Hypercholesterolemia Hypercholesterolemia : How t o access health information online Indication:Hypercholesterolemia Hypothyroidism : How to acce ss health information online Indication:Hypothyroidism Hypothyroidism : How to acce ss health information online - Detail Indication:Hypothyroidism Hypothyroidism : Patient Ins tructions Indication:Hypothyroidism Hypoglycemia : Patient Instr uctions Indication:Hypoglycemia Sinusitis, acute : Patient I nstructions Indication:Sinusitis, acute Sinusitis, acute : How to ac cess health information online Indication:Sinusitis, acute Sinusitis, acute : How to ac cess health information online - Detail Indication:Sinusitis, acute Cough : Patient Instructions Indication:Cough Name Dates Details How to access health informa tion online Indication:Well woman exam with routine gynecological exam Start:14-Jul-2018 Instruction Type:Patient Education How to access health informa tion online - Detail Indication:Well woman exam with routine gynecological exam Start:14-Jul-2018 Instruction Type:Patient Education Patient Instructions Indication:Well woman exam with routine gynecological exam Start:14-Jul-2018 Instruction Type:Provider Instructions for Treatment How to access health informa tion online Indication:Well woman exam with routine gynecological exam Start:18-Jun-2017 Instruction Type:Patient Education How to access health informa tion online - Detail Indication:Well woman exam with routine gynecological exam Start:18-Jun-2017 Instruction Type:Patient Education Patient Instructions Indication:Well woman exam with routine gynecological exam Start:18-Jun-2017 Instruction Type:Provider Instructions for Treatment How to access health informa tion online - Detail Indication:Hypercholesterolemia Start:17-Dec-2016 Instruction Type:Patient Education How to access health informa tion online Indication:Hypercholesterolemia Start:17-Dec-2016 Instruction Type:Patient Education How to access health informa tion online Indication:Hypothyroidism Start:18-Jun-2016 Instruction Type:Patient Education How to access health informa tion online - Detail Indication:Hypothyroidism Start:18-Jun-2016 Instruction Type:Patient Education Patient Instructions Indication:Hypothyroidism Start:18-Jun-2016 Instruction Type:Provider Instructions for Treatment How to access health informa tion online Indication:Hypothyroidism Start:02-Dec-2015 Instruction Type:Patient Education How to access health informa tion online - Detail Indication:Hypothyroidism Start:02-Dec-2015 Instruction Type:Patient Education Patient Instructions Indication:Hypothyroidism Start:02-Dec-2015 Instruction Type:Provider Instructions for Treatment Patient Instructions Indication:Hypothyroidism Start:18-Jun-2015 Instruction Type:Provider Instructions for Treatment Patient Instructions Indication:Hypoglycemia Start:30-Apr-2015 Instruction Type:Provider Instructions for Treatment How to access health informa tion online Indication:Hypothyroidism Start:24-Dec-2014 Instruction Type:Patient Education How to access health informa tion online - Detail Indication:Hypothyroidism Start:24-Dec-2014 Instruction Type:Patient Education Patient Instructions Indication:Hypothyroidism Start:24-Dec-2014 Instruction Type:Provider Instructions for Treatment Patient Instructions Indication:Sinusitis, acute Start:19-Mar-2014 Instruction Type:Provider Instructions for Treatment How to access health informa tion online Indication:Sinusitis, acute Start:19-Mar-2014 Instruction Type:Patient Education How to access health informa tion online - Detail Indication:Sinusitis, acute Start:19-Mar-2014 Instruction Type:Patient Education How to access health informa tion online Indication:Hypothyroidism Start:15-Jan-2014 Instruction Type:Patient Education How to access health informa tion online - Detail Indication:Hypothyroidism Start:15-Jan-2014 Instruction Type:Patient Education Patient Instructions Indication:Hypothyroidism Start:15-Jan-2014 Instruction Type:Provider Instructions for Treatment Patient Instructions Indication:Hypothyroidism Start:17-Jul-2013 Instruction Type:Provider Instructions for Treatment Patient Instructions Indication:Sinusitis, acute Start:30-Mar-2013 Instruction Type:Provider Instructions for Treatment Patient Instructions Indication:Cough Start:30-Mar-2013 Instruction Type:Provider Instructions for Treatment Patient Instructions Indication:Well woman exam with routine gynecological exam Start:02-Jan-2013 Instruction Type:Provider Instructions for Treatment Name Dates Details How to access health informa tion online Indication:Hypothyroidism Start:13-Jan-2019 Instruction Type:Patient Education How to access health informa tion online - Detail Indication:Hypothyroidism Start:13-Jan-2019 Instruction Type:Patient Education Patient Instructions Indication:Hypothyroidism Start:13-Jan-2019 Instruction Type:Provider Instructions for Treatment How to access health informa tion online Indication:Well woman exam with routine gynecological exam Start:14-Jul-2018 Instruction Type:Patient Education How to access health informa tion online - Detail Indication:Well woman exam with routine gynecological exam Start:14-Jul-2018 Instruction Type:Patient Education Patient Instructions Indication:Well woman exam with routine gynecological exam Start:14-Jul-2018 Instruction Type:Provider Instructions for Treatment How to access health informa tion online Indication:Well woman exam with routine gynecological exam Start:18-Jun-2017 Instruction Type:Patient Education How to access health informa tion online - Detail Indication:Well woman exam with routine gynecological exam Start:18-Jun-2017 Instruction Type:Patient Education Patient Instructions Indication:Well woman exam with routine gynecological exam Start:18-Jun-2017 Instruction Type:Provider Instructions for Treatment How to access health informa tion online - Detail Indication:Hypercholesterolemia Start:17-Dec-2016 Instruction Type:Patient Education How to access health informa tion online Indication:Hypercholesterolemia Start:17-Dec-2016 Instruction Type:Patient Education How to access health informa tion online Indication:Hypothyroidism Start:18-Jun-2016 Instruction Type:Patient Education How to access health informa tion online - Detail Indication:Hypothyroidism Start:18-Jun-2016 Instruction Type:Patient Education Patient Instructions Indication:Hypothyroidism Start:18-Jun-2016 Instruction Type:Provider Instructions for Treatment How to access health informa tion online Indication:Hypothyroidism Start:02-Dec-2015 Instruction Type:Patient Education How to access health informa tion online - Detail Indication:Hypothyroidism Start:02-Dec-2015 Instruction Type:Patient Education Patient Instructions Indication:Hypothyroidism Start:02-Dec-2015 Instruction Type:Provider Instructions for Treatment Patient Instructions Indication:Hypothyroidism Start:18-Jun-2015 Instruction Type:Provider Instructions for Treatment Patient Instructions Indication:Hypoglycemia Start:30-Apr-2015 Instruction Type:Provider Instructions for Treatment How to access health informa tion online Indication:Hypothyroidism Start:24-Dec-2014 Instruction Type:Patient Education How to access health informa tion online - Detail Indication:Hypothyroidism Start:24-Dec-2014 Instruction Type:Patient Education Patient Instructions Indication:Hypothyroidism Start:24-Dec-2014 Instruction Type:Provider Instructions for Treatment Patient Instructions Indication:Sinusitis, acute Start:19-Mar-2014 Instruction Type:Provider Instructions for Treatment How to access health informa tion online Indication:Sinusitis, acute Start:19-Mar-2014 Instruction Type:Patient Education How to access health informa tion online - Detail Indication:Sinusitis, acute Start:19-Mar-2014 Instruction Type:Patient Education How to access health informa tion online Indication:Hypothyroidism Start:15-Jan-2014 Instruction Type:Patient Education How to access health informa tion online - Detail Indication:Hypothyroidism Start:15-Jan-2014 Instruction Type:Patient Education Patient Instructions Indication:Hypothyroidism Start:15-Jan-2014 Instruction Type:Provider Instructions for Treatment Patient Instructions Indication:Hypothyroidism Start:17-Jul-2013 Instruction Type:Provider Instructions for Treatment Patient Instructions Indication:Sinusitis, acute Start:30-Mar-2013 Instruction Type:Provider Instructions for Treatment Patient Instructions Indication:Cough Start:30-Mar-2013 Instruction Type:Provider Instructions for Treatment Patient Instructions Indication:Well woman exam with routine gynecological exam Start:02-Jan-2013 Instruction Type:Provider Instructions for Treatment Name Dates Details How to access health informa tion online Indication:Hypothyroidism Start:13-Jan-2019 Instruction Type:Patient Education How to access health informa tion online - Detail Indication:Hypothyroidism Start:13-Jan-2019 Instruction Type:Patient Education Patient Instructions Indication:Hypothyroidism Start:13-Jan-2019 Instruction Type:Provider Instructions for Treatment How to access health informa tion online Indication:Well woman exam with routine gynecological exam Start:14-Jul-2018 Instruction Type:Patient Education How to access health informa tion online - Detail Indication:Well woman exam with routine gynecological exam Start:14-Jul-2018 Instruction Type:Patient Education Patient Instructions Indication:Well woman exam with routine gynecological exam Start:14-Jul-2018 Instruction Type:Provider Instructions for Treatment How to access health informa tion online Indication:Well woman exam with routine gynecological exam Start:18-Jun-2017 Instruction Type:Patient Education How to access health informa tion online - Detail Indication:Well woman exam with routine gynecological exam Start:18-Jun-2017 Instruction Type:Patient Education Patient Instructions Indication:Well woman exam with routine gynecological exam Start:18-Jun-2017 Instruction Type:Provider Instructions for Treatment How to access health informa tion online - Detail Indication:Hypercholesterolemia Start:17-Dec-2016 Instruction Type:Patient Education How to access health informa tion online Indication:Hypercholesterolemia Start:17-Dec-2016 Instruction Type:Patient Education How to access health informa tion online Indication:Hypothyroidism Start:18-Jun-2016 Instruction Type:Patient Education How to access health informa tion online - Detail Indication:Hypothyroidism Start:18-Jun-2016 Instruction Type:Patient Education Patient Instructions Indication:Hypothyroidism Start:18-Jun-2016 Instruction Type:Provider Instructions for Treatment How to access health informa tion online Indication:Hypothyroidism Start:02-Dec-2015 Instruction Type:Patient Education How to access health informa tion online - Detail Indication:Hypothyroidism Start:02-Dec-2015 Instruction Type:Patient Education Patient Instructions Indication:Hypothyroidism Start:02-Dec-2015 Instruction Type:Provider Instructions for Treatment Patient Instructions Indication:Hypothyroidism Start:18-Jun-2015 Instruction Type:Provider Instructions for Treatment Patient Instructions Indication:Hypoglycemia Start:30-Apr-2015 Instruction Type:Provider Instructions for Treatment How to access health informa tion online Indication:Hypothyroidism Start:24-Dec-2014 Instruction Type:Patient Education How to access health informa tion online - Detail Indication:Hypothyroidism Start:24-Dec-2014 Instruction Type:Patient Education Patient Instructions Indication:Hypothyroidism Start:24-Dec-2014 Instruction Type:Provider Instructions for Treatment Patient Instructions Indication:Sinusitis, acute Start:19-Mar-2014 Instruction Type:Provider Instructions for Treatment How to access health informa tion online Indication:Sinusitis, acute Start:19-Mar-2014 Instruction Type:Patient Education How to access health informa tion online - Detail Indication:Sinusitis, acute Start:19-Mar-2014 Instruction Type:Patient Education How to access health informa tion online Indication:Hypothyroidism Start:15-Jan-2014 Instruction Type:Patient Education How to access health informa tion online - Detail Indication:Hypothyroidism Start:15-Jan-2014 Instruction Type:Patient Education Patient Instructions Indication:Hypothyroidism Start:15-Jan-2014 Instruction Type:Provider Instructions for Treatment Patient Instructions Indication:Hypothyroidism Start:17-Jul-2013 Instruction Type:Provider Instructions for Treatment Patient Instructions Indication:Sinusitis, acute Start:30-Mar-2013 Instruction Type:Provider Instructions for Treatment Patient Instructions Indication:Cough Start:30-Mar-2013 Instruction Type:Provider Instructions for Treatment Patient Instructions Indication:Well woman exam with routine gynecological exam Start:02-Jan-2013 Instruction Type:Provider Instructions for Treatment Name Dates Details How to access health informa tion online Indication:Hypercholesterolemia Start:02-Jan-2020 Instruction Type:Patient Education How to access health informa tion online - Detail Indication:Hypercholesterolemia Start:02-Jan-2020 Instruction Type:Patient Education Patient Instructions Indication:Hypercholesterolemia Start:02-Jan-2020 Instruction Type:Provider Instructions for Treatment How to access health informa tion online Indication:BMI 23.0-23.9, adult Start:10-Jul-2019 Instruction Type:Patient Education How to access health informa tion online - Detail Indication:BMI 23.0-23.9, adult Start:10-Jul-2019 Instruction Type:Patient Education Patient Instructions Indication:BMI 23.0-23.9, adult Start:10-Jul-2019 Instruction Type:Provider Instructions for Treatment How to access health informa tion online Indication:Hypothyroidism Start:13-Jan-2019 Instruction Type:Patient Education How to access health informa tion online - Detail Indication:Hypothyroidism Start:13-Jan-2019 Instruction Type:Patient Education Patient Instructions Indication:Hypothyroidism Start:13-Jan-2019 Instruction Type:Provider Instructions for Treatment How to access health informa tion online Indication:Well woman exam with routine gynecological exam Start:14-Jul-2018 Instruction Type:Patient Education How to access health informa tion online - Detail Indication:Well woman exam with routine gynecological exam Start:14-Jul-2018 Instruction Type:Patient Education Patient Instructions Indication:Well woman exam with routine gynecological exam Start:14-Jul-2018 Instruction Type:Provider Instructions for Treatment How to access health informa tion online Indication:Well woman exam with routine gynecological exam Start:18-Jun-2017 Instruction Type:Patient Education How to access health informa tion online - Detail Indication:Well woman exam with routine gynecological exam Start:18-Jun-2017 Instruction Type:Patient Education Patient Instructions Indication:Well woman exam with routine gynecological exam Start:18-Jun-2017 Instruction Type:Provider Instructions for Treatment How to access health informa tion online - Detail Indication:Hypercholesterolemia Start:17-Dec-2016 Instruction Type:Patient Education How to access health informa tion online Indication:Hypercholesterolemia Start:17-Dec-2016 Instruction Type:Patient Education How to access health informa tion online Indication:Hypothyroidism Start:18-Jun-2016 Instruction Type:Patient Education How to access health informa tion online - Detail Indication:Hypothyroidism Start:18-Jun-2016 Instruction Type:Patient Education Patient Instructions Indication:Hypothyroidism Start:18-Jun-2016 Instruction Type:Provider Instructions for Treatment How to access health informa tion online Indication:Hypothyroidism Start:02-Dec-2015 Instruction Type:Patient Education How to access health informa tion online - Detail Indication:Hypothyroidism Start:02-Dec-2015 Instruction Type:Patient Education Patient Instructions Indication:Hypothyroidism Start:02-Dec-2015 Instruction Type:Provider Instructions for Treatment Patient Instructions Indication:Hypothyroidism Start:18-Jun-2015 Instruction Type:Provider Instructions for Treatment Patient Instructions Indication:Hypoglycemia Start:30-Apr-2015 Instruction Type:Provider Instructions for Treatment How to access health informa tion online Indication:Hypothyroidism Start:24-Dec-2014 Instruction Type:Patient Education How to access health informa tion online - Detail Indication:Hypothyroidism Start:24-Dec-2014 Instruction Type:Patient Education Patient Instructions Indication:Hypothyroidism Start:24-Dec-2014 Instruction Type:Provider Instructions for Treatment Patient Instructions Indication:Sinusitis, acute Start:19-Mar-2014 Instruction Type:Provider Instructions for Treatment How to access health informa tion online Indication:Sinusitis, acute Start:19-Mar-2014 Instruction Type:Patient Education How to access health informa tion online - Detail Indication:Sinusitis, acute Start:19-Mar-2014 Instruction Type:Patient Education How to access health informa tion online Indication:Hypothyroidism Start:15-Jan-2014 Instruction Type:Patient Education How to access health informa tion online - Detail Indication:Hypothyroidism Start:15-Jan-2014 Instruction Type:Patient Education Patient Instructions Indication:Hypothyroidism Start:15-Jan-2014 Instruction Type:Provider Instructions for Treatment Patient Instructions Indication:Hypothyroidism Start:17-Jul-2013 Instruction Type:Provider Instructions for Treatment Patient Instructions Indication:Sinusitis, acute Start:30-Mar-2013 Instruction Type:Provider Instructions for Treatment Patient Instructions Indication:Cough Start:30-Mar-2013 Instruction Type:Provider Instructions for Treatment Patient Instructions Indication:Well woman exam with routine gynecological exam Start:02-Jan-2013 Instruction Type:Provider Instructions for Treatment Name Dates Details How to access health informa tion online Indication:Hypercholesterolemia Start:02-Jan-2020 Instruction Type:Patient Education How to access health informa tion online - Detail Indication:Hypercholesterolemia Start:02-Jan-2020 Instruction Type:Patient Education Patient Instructions Indication:Hypercholesterolemia Start:02-Jan-2020 Instruction Type:Provider Instructions for Treatment How to access health informa tion online Indication:BMI 23.0-23.9, adult Start:10-Jul-2019 Instruction Type:Patient Education How to access health informa tion online - Detail Indication:BMI 23.0-23.9, adult Start:10-Jul-2019 Instruction Type:Patient Education Patient Instructions Indication:BMI 23.0-23.9, adult Start:10-Jul-2019 Instruction Type:Provider Instructions for Treatment How to access health informa tion online Indication:Hypothyroidism Start:13-Jan-2019 Instruction Type:Patient Education How to access health informa tion online - Detail Indication:Hypothyroidism Start:13-Jan-2019 Instruction Type:Patient Education Patient Instructions Indication:Hypothyroidism Start:13-Jan-2019 Instruction Type:Provider Instructions for Treatment How to access health informa tion online Indication:Well woman exam with routine gynecological exam Start:14-Jul-2018 Instruction Type:Patient Education How to access health informa tion online - Detail Indication:Well woman exam with routine gynecological exam Start:14-Jul-2018 Instruction Type:Patient Education Patient Instructions Indication:Well woman exam with routine gynecological exam Start:14-Jul-2018 Instruction Type:Provider Instructions for Treatment How to access health informa tion online Indication:Well woman exam with routine gynecological exam Start:18-Jun-2017 Instruction Type:Patient Education How to access health informa tion online - Detail Indication:Well woman exam with routine gynecological exam Start:18-Jun-2017 Instruction Type:Patient Education Patient Instructions Indication:Well woman exam with routine gynecological exam Start:18-Jun-2017 Instruction Type:Provider Instructions for Treatment How to access health informa tion online - Detail Indication:Hypercholesterolemia Start:17-Dec-2016 Instruction Type:Patient Education How to access health informa tion online Indication:Hypercholesterolemia Start:17-Dec-2016 Instruction Type:Patient Education How to access health informa tion online Indication:Hypothyroidism Start:18-Jun-2016 Instruction Type:Patient Education How to access health informa tion online - Detail Indication:Hypothyroidism Start:18-Jun-2016 Instruction Type:Patient Education Patient Instructions Indication:Hypothyroidism Start:18-Jun-2016 Instruction Type:Provider Instructions for Treatment How to access health informa tion online Indication:Hypothyroidism Start:02-Dec-2015 Instruction Type:Patient Education How to access health informa tion online - Detail Indication:Hypothyroidism Start:02-Dec-2015 Instruction Type:Patient Education Patient Instructions Indication:Hypothyroidism Start:02-Dec-2015 Instruction Type:Provider Instructions for Treatment Patient Instructions Indication:Hypothyroidism Start:18-Jun-2015 Instruction Type:Provider Instructions for Treatment Patient Instructions Indication:Hypoglycemia Start:30-Apr-2015 Instruction Type:Provider Instructions for Treatment How to access health informa tion online Indication:Hypothyroidism Start:24-Dec-2014 Instruction Type:Patient Education How to access health informa tion online - Detail Indication:Hypothyroidism Start:24-Dec-2014 Instruction Type:Patient Education Patient Instructions Indication:Hypothyroidism Start:24-Dec-2014 Instruction Type:Provider Instructions for Treatment Patient Instructions Indication:Sinusitis, acute Start:19-Mar-2014 Instruction Type:Provider Instructions for Treatment How to access health informa tion online Indication:Sinusitis, acute Start:19-Mar-2014 Instruction Type:Patient Education How to access health informa tion online - Detail Indication:Sinusitis, acute Start:19-Mar-2014 Instruction Type:Patient Education How to access health informa tion online Indication:Hypothyroidism Start:15-Jan-2014 Instruction Type:Patient Education How to access health informa tion online - Detail Indication:Hypothyroidism Start:15-Jan-2014 Instruction Type:Patient Education Patient Instructions Indication:Hypothyroidism Start:15-Jan-2014 Instruction Type:Provider Instructions for Treatment Patient Instructions Indication:Hypothyroidism Start:17-Jul-2013 Instruction Type:Provider Instructions for Treatment Patient Instructions Indication:Sinusitis, acute Start:30-Mar-2013 Instruction Type:Provider Instructions for Treatment Patient Instructions Indication:Cough Start:30-Mar-2013 Instruction Type:Provider Instructions for Treatment Patient Instructions Indication:Well woman exam with routine gynecological exam Start:02-Jan-2013 Instruction Type:Provider Instructions for Treatment Name Dates Details How to access health informa tion online Indication:Hypercholesterolemia Start:02-Jan-2020 Instruction Type:Patient Education How to access health informa tion online - Detail Indication:Hypercholesterolemia Start:02-Jan-2020 Instruction Type:Patient Education Patient Instructions Indication:Hypercholesterolemia Start:02-Jan-2020 Instruction Type:Provider Instructions for Treatment How to access health informa tion online Indication:BMI 23.0-23.9, adult Start:10-Jul-2019 Instruction Type:Patient Education How to access health informa tion online - Detail Indication:BMI 23.0-23.9, adult Start:10-Jul-2019 Instruction Type:Patient Education Patient Instructions Indication:BMI 23.0-23.9, adult Start:10-Jul-2019 Instruction Type:Provider Instructions for Treatment How to access health informa tion online Indication:Hypothyroidism Start:13-Jan-2019 Instruction Type:Patient Education How to access health informa tion online - Detail Indication:Hypothyroidism Start:13-Jan-2019 Instruction Type:Patient Education Patient Instructions Indication:Hypothyroidism Start:13-Jan-2019 Instruction Type:Provider Instructions for Treatment How to access health informa tion online Indication:Well woman exam with routine gynecological exam Start:14-Jul-2018 Instruction Type:Patient Education How to access health informa tion online - Detail Indication:Well woman exam with routine gynecological exam Start:14-Jul-2018 Instruction Type:Patient Education Patient Instructions Indication:Well woman exam with routine gynecological exam Start:14-Jul-2018 Instruction Type:Provider Instructions for Treatment How to access health informa tion online Indication:Well woman exam with routine gynecological exam Start:18-Jun-2017 Instruction Type:Patient Education How to access health informa tion online - Detail Indication:Well woman exam with routine gynecological exam Start:18-Jun-2017 Instruction Type:Patient Education Patient Instructions Indication:Well woman exam with routine gynecological exam Start:18-Jun-2017 Instruction Type:Provider Instructions for Treatment How to access health informa tion online - Detail Indication:Hypercholesterolemia Start:17-Dec-2016 Instruction Type:Patient Education How to access health informa tion online Indication:Hypercholesterolemia Start:17-Dec-2016 Instruction Type:Patient Education How to access health informa tion online Indication:Hypothyroidism Start:18-Jun-2016 Instruction Type:Patient Education How to access health informa tion online - Detail Indication:Hypothyroidism Start:18-Jun-2016 Instruction Type:Patient Education Patient Instructions Indication:Hypothyroidism Start:18-Jun-2016 Instruction Type:Provider Instructions for Treatment How to access health informa tion online Indication:Hypothyroidism Start:02-Dec-2015 Instruction Type:Patient Education How to access health informa tion online - Detail Indication:Hypothyroidism Start:02-Dec-2015 Instruction Type:Patient Education Patient Instructions Indication:Hypothyroidism Start:02-Dec-2015 Instruction Type:Provider Instructions for Treatment Patient Instructions Indication:Hypothyroidism Start:18-Jun-2015 Instruction Type:Provider Instructions for Treatment Patient Instructions Indication:Hypoglycemia Start:30-Apr-2015 Instruction Type:Provider Instructions for Treatment How to access health informa tion online Indication:Hypothyroidism Start:24-Dec-2014 Instruction Type:Patient Education How to access health informa tion online - Detail Indication:Hypothyroidism Start:24-Dec-2014 Instruction Type:Patient Education Patient Instructions Indication:Hypothyroidism Start:24-Dec-2014 Instruction Type:Provider Instructions for Treatment Patient Instructions Indication:Sinusitis, acute Start:19-Mar-2014 Instruction Type:Provider Instructions for Treatment How to access health informa tion online Indication:Sinusitis, acute Start:19-Mar-2014 Instruction Type:Patient Education How to access health informa tion online - Detail Indication:Sinusitis, acute Start:19-Mar-2014 Instruction Type:Patient Education How to access health informa tion online Indication:Hypothyroidism Start:15-Jan-2014 Instruction Type:Patient Education How to access health informa tion online - Detail Indication:Hypothyroidism Start:15-Jan-2014 Instruction Type:Patient Education Patient Instructions Indication:Hypothyroidism Start:15-Jan-2014 Instruction Type:Provider Instructions for Treatment Patient Instructions Indication:Hypothyroidism Start:17-Jul-2013 Instruction Type:Provider Instructions for Treatment Patient Instructions Indication:Sinusitis, acute Start:30-Mar-2013 Instruction Type:Provider Instructions for Treatment Patient Instructions Indication:Cough Start:30-Mar-2013 Instruction Type:Provider Instructions for Treatment Patient Instructions Indication:Well woman exam with routine gynecological exam Start:02-Jan-2013 Instruction Type:Provider Instructions for Treatment Name Dates Details How to access health informa tion online Indication:Hypercholesterolemia Start:02-Jan-2020 Instruction Type:Patient Education How to access health informa tion online - Detail Indication:Hypercholesterolemia Start:02-Jan-2020 Instruction Type:Patient Education Patient Instructions Indication:Hypercholesterolemia Start:02-Jan-2020 Instruction Type:Provider Instructions for Treatment How to access health informa tion online Indication:BMI 23.0-23.9, adult Start:10-Jul-2019 Instruction Type:Patient Education How to access health informa tion online - Detail Indication:BMI 23.0-23.9, adult Start:10-Jul-2019 Instruction Type:Patient Education Patient Instructions Indication:BMI 23.0-23.9, adult Start:10-Jul-2019 Instruction Type:Provider Instructions for Treatment How to access health informa tion online Indication:Hypothyroidism Start:13-Jan-2019 Instruction Type:Patient Education How to access health informa tion online - Detail Indication:Hypothyroidism Start:13-Jan-2019 Instruction Type:Patient Education Patient Instructions Indication:Hypothyroidism Start:13-Jan-2019 Instruction Type:Provider Instructions for Treatment How to access health informa tion online Indication:Well woman exam with routine gynecological exam Start:14-Jul-2018 Instruction Type:Patient Education How to access health informa tion online - Detail Indication:Well woman exam with routine gynecological exam Start:14-Jul-2018 Instruction Type:Patient Education Patient Instructions Indication:Well woman exam with routine gynecological exam Start:14-Jul-2018 Instruction Type:Provider Instructions for Treatment How to access health informa tion online Indication:Well woman exam with routine gynecological exam Start:18-Jun-2017 Instruction Type:Patient Education How to access health informa tion online - Detail Indication:Well woman exam with routine gynecological exam Start:18-Jun-2017 Instruction Type:Patient Education Patient Instructions Indication:Well woman exam with routine gynecological exam Start:18-Jun-2017 Instruction Type:Provider Instructions for Treatment How to access health informa tion online - Detail Indication:Hypercholesterolemia Start:17-Dec-2016 Instruction Type:Patient Education How to access health informa tion online Indication:Hypercholesterolemia Start:17-Dec-2016 Instruction Type:Patient Education How to access health informa tion online Indication:Hypothyroidism Start:18-Jun-2016 Instruction Type:Patient Education How to access health informa tion online - Detail Indication:Hypothyroidism Start:18-Jun-2016 Instruction Type:Patient Education Patient Instructions Indication:Hypothyroidism Start:18-Jun-2016 Instruction Type:Provider Instructions for Treatment How to access health informa tion online Indication:Hypothyroidism Start:02-Dec-2015 Instruction Type:Patient Education How to access health informa tion online - Detail Indication:Hypothyroidism Start:02-Dec-2015 Instruction Type:Patient Education Patient Instructions Indication:Hypothyroidism Start:02-Dec-2015 Instruction Type:Provider Instructions for Treatment Patient Instructions Indication:Hypothyroidism Start:18-Jun-2015 Instruction Type:Provider Instructions for Treatment Patient Instructions Indication:Hypoglycemia Start:30-Apr-2015 Instruction Type:Provider Instructions for Treatment How to access health informa tion online Indication:Hypothyroidism Start:24-Dec-2014 Instruction Type:Patient Education How to access health informa tion online - Detail Indication:Hypothyroidism Start:24-Dec-2014 Instruction Type:Patient Education Patient Instructions Indication:Hypothyroidism Start:24-Dec-2014 Instruction Type:Provider Instructions for Treatment Patient Instructions Indication:Sinusitis, acute Start:19-Mar-2014 Instruction Type:Provider Instructions for Treatment How to access health informa tion online Indication:Sinusitis, acute Start:19-Mar-2014 Instruction Type:Patient Education How to access health informa tion online - Detail Indication:Sinusitis, acute Start:19-Mar-2014 Instruction Type:Patient Education How to access health informa tion online Indication:Hypothyroidism Start:15-Jan-2014 Instruction Type:Patient Education How to access health informa tion online - Detail Indication:Hypothyroidism Start:15-Jan-2014 Instruction Type:Patient Education Patient Instructions Indication:Hypothyroidism Start:15-Jan-2014 Instruction Type:Provider Instructions for Treatment Patient Instructions Indication:Hypothyroidism Start:17-Jul-2013 Instruction Type:Provider Instructions for Treatment Patient Instructions Indication:Sinusitis, acute Start:30-Mar-2013 Instruction Type:Provider Instructions for Treatment Patient Instructions Indication:Cough Start:30-Mar-2013 Instruction Type:Provider Instructions for Treatment Patient Instructions Indication:Well woman exam with routine gynecological exam Start:02-Jan-2013 Instruction Type:Provider Instructions for Treatment Name Dates Details How to access health informa tion online Indication:Exposure to SARS virus Start:26-Apr-2020 Instruction Type:Patient Education How to access health informa tion online - Detail Indication:Exposure to SARS virus Start:26-Apr-2020 Instruction Type:Patient Education Patient Instructions Indication:Exposure to SARS virus Start:26-Apr-2020 Instruction Type:Provider Instructions for Treatment How to access health informa tion online Indication:Hypercholesterolemia Start:02-Jan-2020 Instruction Type:Patient Education How to access health informa tion online - Detail Indication:Hypercholesterolemia Start:02-Jan-2020 Instruction Type:Patient Education Patient Instructions Indication:Hypercholesterolemia Start:02-Jan-2020 Instruction Type:Provider Instructions for Treatment How to access health informa tion online Indication:BMI 23.0-23.9, adult Start:10-Jul-2019 Instruction Type:Patient Education How to access health informa tion online - Detail Indication:BMI 23.0-23.9, adult Start:10-Jul-2019 Instruction Type:Patient Education Patient Instructions Indication:BMI 23.0-23.9, adult Start:10-Jul-2019 Instruction Type:Provider Instructions for Treatment How to access health informa tion online Indication:Hypothyroidism Start:13-Jan-2019 Instruction Type:Patient Education How to access health informa tion online - Detail Indication:Hypothyroidism Start:13-Jan-2019 Instruction Type:Patient Education Patient Instructions Indication:Hypothyroidism Start:13-Jan-2019 Instruction Type:Provider Instructions for Treatment How to access health informa tion online Indication:Well woman exam with routine gynecological exam Start:14-Jul-2018 Instruction Type:Patient Education How to access health informa tion online - Detail Indication:Well woman exam with routine gynecological exam Start:14-Jul-2018 Instruction Type:Patient Education Patient Instructions Indication:Well woman exam with routine gynecological exam Start:14-Jul-2018 Instruction Type:Provider Instructions for Treatment How to access health informa tion online Indication:Well woman exam with routine gynecological exam Start:18-Jun-2017 Instruction Type:Patient Education How to access health informa tion online - Detail Indication:Well woman exam with routine gynecological exam Start:18-Jun-2017 Instruction Type:Patient Education Patient Instructions Indication:Well woman exam with routine gynecological exam Start:18-Jun-2017 Instruction Type:Provider Instructions for Treatment How to access health informa tion online - Detail Indication:Hypercholesterolemia Start:17-Dec-2016 Instruction Type:Patient Education How to access health informa tion online Indication:Hypercholesterolemia Start:17-Dec-2016 Instruction Type:Patient Education How to access health informa tion online Indication:Hypothyroidism Start:18-Jun-2016 Instruction Type:Patient Education How to access health informa tion online - Detail Indication:Hypothyroidism Start:18-Jun-2016 Instruction Type:Patient Education Patient Instructions Indication:Hypothyroidism Start:18-Jun-2016 Instruction Type:Provider Instructions for Treatment How to access health informa tion online Indication:Hypothyroidism Start:02-Dec-2015 Instruction Type:Patient Education How to access health informa tion online - Detail Indication:Hypothyroidism Start:02-Dec-2015 Instruction Type:Patient Education Patient Instructions Indication:Hypothyroidism Start:02-Dec-2015 Instruction Type:Provider Instructions for Treatment Patient Instructions Indication:Hypothyroidism Start:18-Jun-2015 Instruction Type:Provider Instructions for Treatment Patient Instructions Indication:Hypoglycemia Start:30-Apr-2015 Instruction Type:Provider Instructions for Treatment How to access health informa tion online Indication:Hypothyroidism Start:24-Dec-2014 Instruction Type:Patient Education How to access health informa tion online - Detail Indication:Hypothyroidism Start:24-Dec-2014 Instruction Type:Patient Education Patient Instructions Indication:Hypothyroidism Start:24-Dec-2014 Instruction Type:Provider Instructions for Treatment Patient Instructions Indication:Sinusitis, acute Start:19-Mar-2014 Instruction Type:Provider Instructions for Treatment How to access health informa tion online Indication:Sinusitis, acute Start:19-Mar-2014 Instruction Type:Patient Education How to access health informa tion online - Detail Indication:Sinusitis, acute Start:19-Mar-2014 Instruction Type:Patient Education How to access health informa tion online Indication:Hypothyroidism Start:15-Jan-2014 Instruction Type:Patient Education How to access health informa tion online - Detail Indication:Hypothyroidism Start:15-Jan-2014 Instruction Type:Patient Education Patient Instructions Indication:Hypothyroidism Start:15-Jan-2014 Instruction Type:Provider Instructions for Treatment Patient Instructions Indication:Hypothyroidism Start:17-Jul-2013 Instruction Type:Provider Instructions for Treatment Patient Instructions Indication:Sinusitis, acute Start:30-Mar-2013 Instruction Type:Provider Instructions for Treatment Patient Instructions Indication:Cough Start:30-Mar-2013 Instruction Type:Provider Instructions for Treatment Patient Instructions Indication:Well woman exam with routine gynecological exam Start:02-Jan-2013 Instruction Type:Provider Instructions for Treatment Name Dates Details How to access health informa tion online Indication:Exposure to SARS virus Start:26-Apr-2020 Instruction Type:Patient Education How to access health informa tion online - Detail Indication:Exposure to SARS virus Start:26-Apr-2020 Instruction Type:Patient Education Patient Instructions Indication:Exposure to SARS virus Start:26-Apr-2020 Instruction Type:Provider Instructions for Treatment How to access health informa tion online Indication:Hypercholesterolemia Start:02-Jan-2020 Instruction Type:Patient Education How to access health informa tion online - Detail Indication:Hypercholesterolemia Start:02-Jan-2020 Instruction Type:Patient Education Patient Instructions Indication:Hypercholesterolemia Start:02-Jan-2020 Instruction Type:Provider Instructions for Treatment How to access health informa tion online Indication:BMI 23.0-23.9, adult Start:10-Jul-2019 Instruction Type:Patient Education How to access health informa tion online - Detail Indication:BMI 23.0-23.9, adult Start:10-Jul-2019 Instruction Type:Patient Education Patient Instructions Indication:BMI 23.0-23.9, adult Start:10-Jul-2019 Instruction Type:Provider Instructions for Treatment How to access health informa tion online Indication:Hypothyroidism Start:13-Jan-2019 Instruction Type:Patient Education How to access health informa tion online - Detail Indication:Hypothyroidism Start:13-Jan-2019 Instruction Type:Patient Education Patient Instructions Indication:Hypothyroidism Start:13-Jan-2019 Instruction Type:Provider Instructions for Treatment How to access health informa tion online Indication:Well woman exam with routine gynecological exam Start:14-Jul-2018 Instruction Type:Patient Education How to access health informa tion online - Detail Indication:Well woman exam with routine gynecological exam Start:14-Jul-2018 Instruction Type:Patient Education Patient Instructions Indication:Well woman exam with routine gynecological exam Start:14-Jul-2018 Instruction Type:Provider Instructions for Treatment How to access health informa tion online Indication:Well woman exam with routine gynecological exam Start:18-Jun-2017 Instruction Type:Patient Education How to access health informa tion online - Detail Indication:Well woman exam with routine gynecological exam Start:18-Jun-2017 Instruction Type:Patient Education Patient Instructions Indication:Well woman exam with routine gynecological exam Start:18-Jun-2017 Instruction Type:Provider Instructions for Treatment How to access health informa tion online - Detail Indication:Hypercholesterolemia Start:17-Dec-2016 Instruction Type:Patient Education How to access health informa tion online Indication:Hypercholesterolemia Start:17-Dec-2016 Instruction Type:Patient Education How to access health informa tion online Indication:Hypothyroidism Start:18-Jun-2016 Instruction Type:Patient Education How to access health informa tion online - Detail Indication:Hypothyroidism Start:18-Jun-2016 Instruction Type:Patient Education Patient Instructions Indication:Hypothyroidism Start:18-Jun-2016 Instruction Type:Provider Instructions for Treatment How to access health informa tion online Indication:Hypothyroidism Start:02-Dec-2015 Instruction Type:Patient Education How to access health informa tion online - Detail Indication:Hypothyroidism Start:02-Dec-2015 Instruction Type:Patient Education Patient Instructions Indication:Hypothyroidism Start:02-Dec-2015 Instruction Type:Provider Instructions for Treatment Patient Instructions Indication:Hypothyroidism Start:18-Jun-2015 Instruction Type:Provider Instructions for Treatment Patient Instructions Indication:Hypoglycemia Start:30-Apr-2015 Instruction Type:Provider Instructions for Treatment How to access health informa tion online Indication:Hypothyroidism Start:24-Dec-2014 Instruction Type:Patient Education How to access health informa tion online - Detail Indication:Hypothyroidism Start:24-Dec-2014 Instruction Type:Patient Education Patient Instructions Indication:Hypothyroidism Start:24-Dec-2014 Instruction Type:Provider Instructions for Treatment Patient Instructions Indication:Sinusitis, acute Start:19-Mar-2014 Instruction Type:Provider Instructions for Treatment How to access health informa tion online Indication:Sinusitis, acute Start:19-Mar-2014 Instruction Type:Patient Education How to access health informa tion online - Detail Indication:Sinusitis, acute Start:19-Mar-2014 Instruction Type:Patient Education How to access health informa tion online Indication:Hypothyroidism Start:15-Jan-2014 Instruction Type:Patient Education How to access health informa tion online - Detail Indication:Hypothyroidism Start:15-Jan-2014 Instruction Type:Patient Education Patient Instructions Indication:Hypothyroidism Start:15-Jan-2014 Instruction Type:Provider Instructions for Treatment Patient Instructions Indication:Hypothyroidism Start:17-Jul-2013 Instruction Type:Provider Instructions for Treatment Patient Instructions Indication:Sinusitis, acute Start:30-Mar-2013 Instruction Type:Provider Instructions for Treatment Patient Instructions Indication:Cough Start:30-Mar-2013 Instruction Type:Provider Instructions for Treatment Patient Instructions Indication:Well woman exam with routine gynecological exam Start:02-Jan-2013 Instruction Type:Provider Instructions for Treatment Name Dates Details How to access health informa tion online Indication:Exposure to SARS virus Start:26-Apr-2020 Instruction Type:Patient Education How to access health informa tion online - Detail Indication:Exposure to SARS virus Start:26-Apr-2020 Instruction Type:Patient Education Patient Instructions Indication:Exposure to SARS virus Start:26-Apr-2020 Instruction Type:Provider Instructions for Treatment How to access health informa tion online Indication:Hypercholesterolemia Start:02-Jan-2020 Instruction Type:Patient Education How to access health informa tion online - Detail Indication:Hypercholesterolemia Start:02-Jan-2020 Instruction Type:Patient Education Patient Instructions Indication:Hypercholesterolemia Start:02-Jan-2020 Instruction Type:Provider Instructions for Treatment How to access health informa tion online Indication:BMI 23.0-23.9, adult Start:10-Jul-2019 Instruction Type:Patient Education How to access health informa tion online - Detail Indication:BMI 23.0-23.9, adult Start:10-Jul-2019 Instruction Type:Patient Education Patient Instructions Indication:BMI 23.0-23.9, adult Start:10-Jul-2019 Instruction Type:Provider Instructions for Treatment How to access health informa tion online Indication:Hypothyroidism Start:13-Jan-2019 Instruction Type:Patient Education How to access health informa tion online - Detail Indication:Hypothyroidism Start:13-Jan-2019 Instruction Type:Patient Education Patient Instructions Indication:Hypothyroidism Start:13-Jan-2019 Instruction Type:Provider Instructions for Treatment How to access health informa tion online Indication:Well woman exam with routine gynecological exam Start:14-Jul-2018 Instruction Type:Patient Education How to access health informa tion online - Detail Indication:Well woman exam with routine gynecological exam Start:14-Jul-2018 Instruction Type:Patient Education Patient Instructions Indication:Well woman exam with routine gynecological exam Start:14-Jul-2018 Instruction Type:Provider Instructions for Treatment How to access health informa tion online Indication:Well woman exam with routine gynecological exam Start:18-Jun-2017 Instruction Type:Patient Education How to access health informa tion online - Detail Indication:Well woman exam with routine gynecological exam Start:18-Jun-2017 Instruction Type:Patient Education Patient Instructions Indication:Well woman exam with routine gynecological exam Start:18-Jun-2017 Instruction Type:Provider Instructions for Treatment How to access health informa tion online - Detail Indication:Hypercholesterolemia Start:17-Dec-2016 Instruction Type:Patient Education How to access health informa tion online Indication:Hypercholesterolemia Start:17-Dec-2016 Instruction Type:Patient Education How to access health informa tion online Indication:Hypothyroidism Start:18-Jun-2016 Instruction Type:Patient Education How to access health informa tion online - Detail Indication:Hypothyroidism Start:18-Jun-2016 Instruction Type:Patient Education Patient Instructions Indication:Hypothyroidism Start:18-Jun-2016 Instruction Type:Provider Instructions for Treatment How to access health informa tion online Indication:Hypothyroidism Start:02-Dec-2015 Instruction Type:Patient Education How to access health informa tion online - Detail Indication:Hypothyroidism Start:02-Dec-2015 Instruction Type:Patient Education Patient Instructions Indication:Hypothyroidism Start:02-Dec-2015 Instruction Type:Provider Instructions for Treatment Patient Instructions Indication:Hypothyroidism Start:18-Jun-2015 Instruction Type:Provider Instructions for Treatment Patient Instructions Indication:Hypoglycemia Start:30-Apr-2015 Instruction Type:Provider Instructions for Treatment How to access health informa tion online Indication:Hypothyroidism Start:24-Dec-2014 Instruction Type:Patient Education How to access health informa tion online - Detail Indication:Hypothyroidism Start:24-Dec-2014 Instruction Type:Patient Education Patient Instructions Indication:Hypothyroidism Start:24-Dec-2014 Instruction Type:Provider Instructions for Treatment Patient Instructions Indication:Sinusitis, acute Start:19-Mar-2014 Instruction Type:Provider Instructions for Treatment How to access health informa tion online Indication:Sinusitis, acute Start:19-Mar-2014 Instruction Type:Patient Education How to access health informa tion online - Detail Indication:Sinusitis, acute Start:19-Mar-2014 Instruction Type:Patient Education How to access health informa tion online Indication:Hypothyroidism Start:15-Jan-2014 Instruction Type:Patient Education How to access health informa tion online - Detail Indication:Hypothyroidism Start:15-Jan-2014 Instruction Type:Patient Education Patient Instructions Indication:Hypothyroidism Start:15-Jan-2014 Instruction Type:Provider Instructions for Treatment Patient Instructions Indication:Hypothyroidism Start:17-Jul-2013 Instruction Type:Provider Instructions for Treatment Patient Instructions Indication:Sinusitis, acute Start:30-Mar-2013 Instruction Type:Provider Instructions for Treatment Patient Instructions Indication:Cough Start:30-Mar-2013 Instruction Type:Provider Instructions for Treatment Patient Instructions Indication:Well woman exam with routine gynecological exam Start:02-Jan-2013 Instruction Type:Provider Instructions for Treatment Name Dates Details How to access health informa tion online Indication:Exposure to SARS virus Start:26-Apr-2020 Instruction Type:Patient Education How to access health informa tion online - Detail Indication:Exposure to SARS virus Start:26-Apr-2020 Instruction Type:Patient Education Patient Instructions Indication:Exposure to SARS virus Start:26-Apr-2020 Instruction Type:Provider Instructions for Treatment How to access health informa tion online Indication:Hypercholesterolemia Start:02-Jan-2020 Instruction Type:Patient Education How to access health informa tion online - Detail Indication:Hypercholesterolemia Start:02-Jan-2020 Instruction Type:Patient Education Patient Instructions Indication:Hypercholesterolemia Start:02-Jan-2020 Instruction Type:Provider Instructions for Treatment How to access health informa tion online Indication:BMI 23.0-23.9, adult Start:10-Jul-2019 Instruction Type:Patient Education How to access health informa tion online - Detail Indication:BMI 23.0-23.9, adult Start:10-Jul-2019 Instruction Type:Patient Education Patient Instructions Indication:BMI 23.0-23.9, adult Start:10-Jul-2019 Instruction Type:Provider Instructions for Treatment How to access health informa tion online Indication:Hypothyroidism Start:13-Jan-2019 Instruction Type:Patient Education How to access health informa tion online - Detail Indication:Hypothyroidism Start:13-Jan-2019 Instruction Type:Patient Education Patient Instructions Indication:Hypothyroidism Start:13-Jan-2019 Instruction Type:Provider Instructions for Treatment How to access health informa tion online Indication:Well woman exam with routine gynecological exam Start:14-Jul-2018 Instruction Type:Patient Education How to access health informa tion online - Detail Indication:Well woman exam with routine gynecological exam Start:14-Jul-2018 Instruction Type:Patient Education Patient Instructions Indication:Well woman exam with routine gynecological exam Start:14-Jul-2018 Instruction Type:Provider Instructions for Treatment How to access health informa tion online Indication:Well woman exam with routine gynecological exam Start:18-Jun-2017 Instruction Type:Patient Education How to access health informa tion online - Detail Indication:Well woman exam with routine gynecological exam Start:18-Jun-2017 Instruction Type:Patient Education Patient Instructions Indication:Well woman exam with routine gynecological exam Start:18-Jun-2017 Instruction Type:Provider Instructions for Treatment How to access health informa tion online - Detail Indication:Hypercholesterolemia Start:17-Dec-2016 Instruction Type:Patient Education How to access health informa tion online Indication:Hypercholesterolemia Start:17-Dec-2016 Instruction Type:Patient Education How to access health informa tion online Indication:Hypothyroidism Start:18-Jun-2016 Instruction Type:Patient Education How to access health informa tion online - Detail Indication:Hypothyroidism Start:18-Jun-2016 Instruction Type:Patient Education Patient Instructions Indication:Hypothyroidism Start:18-Jun-2016 Instruction Type:Provider Instructions for Treatment How to access health informa tion online Indication:Hypothyroidism Start:02-Dec-2015 Instruction Type:Patient Education How to access health informa tion online - Detail Indication:Hypothyroidism Start:02-Dec-2015 Instruction Type:Patient Education Patient Instructions Indication:Hypothyroidism Start:02-Dec-2015 Instruction Type:Provider Instructions for Treatment Patient Instructions Indication:Hypothyroidism Start:18-Jun-2015 Instruction Type:Provider Instructions for Treatment Patient Instructions Indication:Hypoglycemia Start:30-Apr-2015 Instruction Type:Provider Instructions for Treatment How to access health informa tion online Indication:Hypothyroidism Start:24-Dec-2014 Instruction Type:Patient Education How to access health informa tion online - Detail Indication:Hypothyroidism Start:24-Dec-2014 Instruction Type:Patient Education Patient Instructions Indication:Hypothyroidism Start:24-Dec-2014 Instruction Type:Provider Instructions for Treatment Patient Instructions Indication:Sinusitis, acute Start:19-Mar-2014 Instruction Type:Provider Instructions for Treatment How to access health informa tion online Indication:Sinusitis, acute Start:19-Mar-2014 Instruction Type:Patient Education How to access health informa tion online - Detail Indication:Sinusitis, acute Start:19-Mar-2014 Instruction Type:Patient Education How to access health informa tion online Indication:Hypothyroidism Start:15-Jan-2014 Instruction Type:Patient Education How to access health informa tion online - Detail Indication:Hypothyroidism Start:15-Jan-2014 Instruction Type:Patient Education Patient Instructions Indication:Hypothyroidism Start:15-Jan-2014 Instruction Type:Provider Instructions for Treatment Patient Instructions Indication:Hypothyroidism Start:17-Jul-2013 Instruction Type:Provider Instructions for Treatment Patient Instructions Indication:Sinusitis, acute Start:30-Mar-2013 Instruction Type:Provider Instructions for Treatment Patient Instructions Indication:Cough Start:30-Mar-2013 Instruction Type:Provider Instructions for Treatment Patient Instructions Indication:Well woman exam with routine gynecological exam Start:02-Jan-2013 Instruction Type:Provider Instructions for Treatment Name Dates Details How to access health informa tion online Indication:Exposure to SARS virus Start:26-Apr-2020 Instruction Type:Patient Education How to access health informa tion online - Detail Indication:Exposure to SARS virus Start:26-Apr-2020 Instruction Type:Patient Education Patient Instructions Indication:Exposure to SARS virus Start:26-Apr-2020 Instruction Type:Provider Instructions for Treatment How to access health informa tion online Indication:Hypercholesterolemia Start:02-Jan-2020 Instruction Type:Patient Education How to access health informa tion online - Detail Indication:Hypercholesterolemia Start:02-Jan-2020 Instruction Type:Patient Education Patient Instructions Indication:Hypercholesterolemia Start:02-Jan-2020 Instruction Type:Provider Instructions for Treatment How to access health informa tion online Indication:BMI 23.0-23.9, adult Start:10-Jul-2019 Instruction Type:Patient Education How to access health informa tion online - Detail Indication:BMI 23.0-23.9, adult Start:10-Jul-2019 Instruction Type:Patient Education Patient Instructions Indication:BMI 23.0-23.9, adult Start:10-Jul-2019 Instruction Type:Provider Instructions for Treatment How to access health informa tion online Indication:Hypothyroidism Start:13-Jan-2019 Instruction Type:Patient Education How to access health informa tion online - Detail Indication:Hypothyroidism Start:13-Jan-2019 Instruction Type:Patient Education Patient Instructions Indication:Hypothyroidism Start:13-Jan-2019 Instruction Type:Provider Instructions for Treatment How to access health informa tion online Indication:Well woman exam with routine gynecological exam Start:14-Jul-2018 Instruction Type:Patient Education How to access health informa tion online - Detail Indication:Well woman exam with routine gynecological exam Start:14-Jul-2018 Instruction Type:Patient Education Patient Instructions Indication:Well woman exam with routine gynecological exam Start:14-Jul-2018 Instruction Type:Provider Instructions for Treatment How to access health informa tion online Indication:Well woman exam with routine gynecological exam Start:18-Jun-2017 Instruction Type:Patient Education How to access health informa tion online - Detail Indication:Well woman exam with routine gynecological exam Start:18-Jun-2017 Instruction Type:Patient Education Patient Instructions Indication:Well woman exam with routine gynecological exam Start:18-Jun-2017 Instruction Type:Provider Instructions for Treatment How to access health informa tion online - Detail Indication:Hypercholesterolemia Start:17-Dec-2016 Instruction Type:Patient Education How to access health informa tion online Indication:Hypercholesterolemia Start:17-Dec-2016 Instruction Type:Patient Education How to access health informa tion online Indication:Hypothyroidism Start:18-Jun-2016 Instruction Type:Patient Education How to access health informa tion online - Detail Indication:Hypothyroidism Start:18-Jun-2016 Instruction Type:Patient Education Patient Instructions Indication:Hypothyroidism Start:18-Jun-2016 Instruction Type:Provider Instructions for Treatment How to access health informa tion online Indication:Hypothyroidism Start:02-Dec-2015 Instruction Type:Patient Education How to access health informa tion online - Detail Indication:Hypothyroidism Start:02-Dec-2015 Instruction Type:Patient Education Patient Instructions Indication:Hypothyroidism Start:02-Dec-2015 Instruction Type:Provider Instructions for Treatment Patient Instructions Indication:Hypothyroidism Start:18-Jun-2015 Instruction Type:Provider Instructions for Treatment Patient Instructions Indication:Hypoglycemia Start:30-Apr-2015 Instruction Type:Provider Instructions for Treatment How to access health informa tion online Indication:Hypothyroidism Start:24-Dec-2014 Instruction Type:Patient Education How to access health informa tion online - Detail Indication:Hypothyroidism Start:24-Dec-2014 Instruction Type:Patient Education Patient Instructions Indication:Hypothyroidism Start:24-Dec-2014 Instruction Type:Provider Instructions for Treatment Patient Instructions Indication:Sinusitis, acute Start:19-Mar-2014 Instruction Type:Provider Instructions for Treatment How to access health informa tion online Indication:Sinusitis, acute Start:19-Mar-2014 Instruction Type:Patient Education How to access health informa tion online - Detail Indication:Sinusitis, acute Start:19-Mar-2014 Instruction Type:Patient Education How to access health informa tion online Indication:Hypothyroidism Start:15-Jan-2014 Instruction Type:Patient Education How to access health informa tion online - Detail Indication:Hypothyroidism Start:15-Jan-2014 Instruction Type:Patient Education Patient Instructions Indication:Hypothyroidism Start:15-Jan-2014 Instruction Type:Provider Instructions for Treatment Patient Instructions Indication:Hypothyroidism Start:17-Jul-2013 Instruction Type:Provider Instructions for Treatment Patient Instructions Indication:Sinusitis, acute Start:30-Mar-2013 Instruction Type:Provider Instructions for Treatment Patient Instructions Indication:Cough Start:30-Mar-2013 Instruction Type:Provider Instructions for Treatment Patient Instructions Indication:Well woman exam with routine gynecological exam Start:02-Jan-2013 Instruction Type:Provider Instructions for Treatment Name Dates Details How to access health informa tion online Indication:Exposure to SARS virus Start:26-Apr-2020 Instruction Type:Patient Education How to access health informa tion online - Detail Indication:Exposure to SARS virus Start:26-Apr-2020 Instruction Type:Patient Education Patient Instructions Indication:Exposure to SARS virus Start:26-Apr-2020 Instruction Type:Provider Instructions for Treatment How to access health informa tion online Indication:Hypercholesterolemia Start:02-Jan-2020 Instruction Type:Patient Education How to access health informa tion online - Detail Indication:Hypercholesterolemia Start:02-Jan-2020 Instruction Type:Patient Education Patient Instructions Indication:Hypercholesterolemia Start:02-Jan-2020 Instruction Type:Provider Instructions for Treatment How to access health informa tion online Indication:BMI 23.0-23.9, adult Start:10-Jul-2019 Instruction Type:Patient Education How to access health informa tion online - Detail Indication:BMI 23.0-23.9, adult Start:10-Jul-2019 Instruction Type:Patient Education Patient Instructions Indication:BMI 23.0-23.9, adult Start:10-Jul-2019 Instruction Type:Provider Instructions for Treatment How to access health informa tion online Indication:Hypothyroidism Start:13-Jan-2019 Instruction Type:Patient Education How to access health informa tion online - Detail Indication:Hypothyroidism Start:13-Jan-2019 Instruction Type:Patient Education Patient Instructions Indication:Hypothyroidism Start:13-Jan-2019 Instruction Type:Provider Instructions for Treatment How to access health informa tion online Indication:Well woman exam with routine gynecological exam Start:14-Jul-2018 Instruction Type:Patient Education How to access health informa tion online - Detail Indication:Well woman exam with routine gynecological exam Start:14-Jul-2018 Instruction Type:Patient Education Patient Instructions Indication:Well woman exam with routine gynecological exam Start:14-Jul-2018 Instruction Type:Provider Instructions for Treatment How to access health informa tion online Indication:Well woman exam with routine gynecological exam Start:18-Jun-2017 Instruction Type:Patient Education How to access health informa tion online - Detail Indication:Well woman exam with routine gynecological exam Start:18-Jun-2017 Instruction Type:Patient Education Patient Instructions Indication:Well woman exam with routine gynecological exam Start:18-Jun-2017 Instruction Type:Provider Instructions for Treatment How to access health informa tion online - Detail Indication:Hypercholesterolemia Start:17-Dec-2016 Instruction Type:Patient Education How to access health informa tion online Indication:Hypercholesterolemia Start:17-Dec-2016 Instruction Type:Patient Education How to access health informa tion online Indication:Hypothyroidism Start:18-Jun-2016 Instruction Type:Patient Education How to access health informa tion online - Detail Indication:Hypothyroidism Start:18-Jun-2016 Instruction Type:Patient Education Patient Instructions Indication:Hypothyroidism Start:18-Jun-2016 Instruction Type:Provider Instructions for Treatment How to access health informa tion online Indication:Hypothyroidism Start:02-Dec-2015 Instruction Type:Patient Education How to access health informa tion online - Detail Indication:Hypothyroidism Start:02-Dec-2015 Instruction Type:Patient Education Patient Instructions Indication:Hypothyroidism Start:02-Dec-2015 Instruction Type:Provider Instructions for Treatment Patient Instructions Indication:Hypothyroidism Start:18-Jun-2015 Instruction Type:Provider Instructions for Treatment Patient Instructions Indication:Hypoglycemia Start:30-Apr-2015 Instruction Type:Provider Instructions for Treatment How to access health informa tion online Indication:Hypothyroidism Start:24-Dec-2014 Instruction Type:Patient Education How to access health informa tion online - Detail Indication:Hypothyroidism Start:24-Dec-2014 Instruction Type:Patient Education Patient Instructions Indication:Hypothyroidism Start:24-Dec-2014 Instruction Type:Provider Instructions for Treatment Patient Instructions Indication:Sinusitis, acute Start:19-Mar-2014 Instruction Type:Provider Instructions for Treatment How to access health informa tion online Indication:Sinusitis, acute Start:19-Mar-2014 Instruction Type:Patient Education How to access health informa tion online - Detail Indication:Sinusitis, acute Start:19-Mar-2014 Instruction Type:Patient Education How to access health informa tion online Indication:Hypothyroidism Start:15-Jan-2014 Instruction Type:Patient Education How to access health informa tion online - Detail Indication:Hypothyroidism Start:15-Jan-2014 Instruction Type:Patient Education Patient Instructions Indication:Hypothyroidism Start:15-Jan-2014 Instruction Type:Provider Instructions for Treatment Patient Instructions Indication:Hypothyroidism Start:17-Jul-2013 Instruction Type:Provider Instructions for Treatment Patient Instructions Indication:Sinusitis, acute Start:30-Mar-2013 Instruction Type:Provider Instructions for Treatment Patient Instructions Indication:Cough Start:30-Mar-2013 Instruction Type:Provider Instructions for Treatment Patient Instructions Indication:Well woman exam with routine gynecological exam Start:02-Jan-2013 Instruction Type:Provider Instructions for Treatment Name Dates Details How to access health informa tion online Indication:Hypercholesterolemia Start:02-Jan-2020 Instruction Type:Patient Education How to access health informa tion online - Detail Indication:Hypercholesterolemia Start:02-Jan-2020 Instruction Type:Patient Education Patient Instructions Indication:Hypercholesterolemia Start:02-Jan-2020 Instruction Type:Provider Instructions for Treatment How to access health informa tion online Indication:BMI 23.0-23.9, adult Start:10-Jul-2019 Instruction Type:Patient Education How to access health informa tion online - Detail Indication:BMI 23.0-23.9, adult Start:10-Jul-2019 Instruction Type:Patient Education Patient Instructions Indication:BMI 23.0-23.9, adult Start:10-Jul-2019 Instruction Type:Provider Instructions for Treatment How to access health informa tion online Indication:Hypothyroidism Start:13-Jan-2019 Instruction Type:Patient Education How to access health informa tion online - Detail Indication:Hypothyroidism Start:13-Jan-2019 Instruction Type:Patient Education Patient Instructions Indication:Hypothyroidism Start:13-Jan-2019 Instruction Type:Provider Instructions for Treatment How to access health informa tion online Indication:Well woman exam with routine gynecological exam Start:14-Jul-2018 Instruction Type:Patient Education How to access health informa tion online - Detail Indication:Well woman exam with routine gynecological exam Start:14-Jul-2018 Instruction Type:Patient Education Patient Instructions Indication:Well woman exam with routine gynecological exam Start:14-Jul-2018 Instruction Type:Provider Instructions for Treatment How to access health informa tion online Indication:Well woman exam with routine gynecological exam Start:18-Jun-2017 Instruction Type:Patient Education How to access health informa tion online - Detail Indication:Well woman exam with routine gynecological exam Start:18-Jun-2017 Instruction Type:Patient Education Patient Instructions Indication:Well woman exam with routine gynecological exam Start:18-Jun-2017 Instruction Type:Provider Instructions for Treatment How to access health informa tion online - Detail Indication:Hypercholesterolemia Start:17-Dec-2016 Instruction Type:Patient Education How to access health informa tion online Indication:Hypercholesterolemia Start:17-Dec-2016 Instruction Type:Patient Education How to access health informa tion online Indication:Hypothyroidism Start:18-Jun-2016 Instruction Type:Patient Education How to access health informa tion online - Detail Indication:Hypothyroidism Start:18-Jun-2016 Instruction Type:Patient Education Patient Instructions Indication:Hypothyroidism Start:18-Jun-2016 Instruction Type:Provider Instructions for Treatment How to access health informa tion online Indication:Hypothyroidism Start:02-Dec-2015 Instruction Type:Patient Education How to access health informa tion online - Detail Indication:Hypothyroidism Start:02-Dec-2015 Instruction Type:Patient Education Patient Instructions Indication:Hypothyroidism Start:02-Dec-2015 Instruction Type:Provider Instructions for Treatment Patient Instructions Indication:Hypothyroidism Start:18-Jun-2015 Instruction Type:Provider Instructions for Treatment Patient Instructions Indication:Hypoglycemia Start:30-Apr-2015 Instruction Type:Provider Instructions for Treatment How to access health informa tion online Indication:Hypothyroidism Start:24-Dec-2014 Instruction Type:Patient Education How to access health informa tion online - Detail Indication:Hypothyroidism Start:24-Dec-2014 Instruction Type:Patient Education Patient Instructions Indication:Hypothyroidism Start:24-Dec-2014 Instruction Type:Provider Instructions for Treatment Patient Instructions Indication:Sinusitis, acute Start:19-Mar-2014 Instruction Type:Provider Instructions for Treatment How to access health informa tion online Indication:Sinusitis, acute Start:19-Mar-2014 Instruction Type:Patient Education How to access health informa tion online - Detail Indication:Sinusitis, acute Start:19-Mar-2014 Instruction Type:Patient Education How to access health informa tion online Indication:Hypothyroidism Start:15-Jan-2014 Instruction Type:Patient Education How to access health informa tion online - Detail Indication:Hypothyroidism Start:15-Jan-2014 Instruction Type:Patient Education Patient Instructions Indication:Hypothyroidism Start:15-Jan-2014 Instruction Type:Provider Instructions for Treatment Patient Instructions Indication:Hypothyroidism Start:17-Jul-2013 Instruction Type:Provider Instructions for Treatment Patient Instructions Indication:Sinusitis, acute Start:30-Mar-2013 Instruction Type:Provider Instructions for Treatment Patient Instructions Indication:Cough Start:30-Mar-2013 Instruction Type:Provider Instructions for Treatment Patient Instructions Indication:Well woman exam with routine gynecological exam Start:02-Jan-2013 Instruction Type:Provider Instructions for Treatment Name Dates Details How to access health informa tion online Indication:Exposure to SARS virus Start:26-Apr-2020 Instruction Type:Patient Education How to access health informa tion online - Detail Indication:Exposure to SARS virus Start:26-Apr-2020 Instruction Type:Patient Education Patient Instructions Indication:Exposure to SARS virus Start:26-Apr-2020 Instruction Type:Provider Instructions for Treatment How to access health informa tion online Indication:Hypercholesterolemia Start:02-Jan-2020 Instruction Type:Patient Education How to access health informa tion online - Detail Indication:Hypercholesterolemia Start:02-Jan-2020 Instruction Type:Patient Education Patient Instructions Indication:Hypercholesterolemia Start:02-Jan-2020 Instruction Type:Provider Instructions for Treatment How to access health informa tion online Indication:BMI 23.0-23.9, adult Start:10-Jul-2019 Instruction Type:Patient Education How to access health informa tion online - Detail Indication:BMI 23.0-23.9, adult Start:10-Jul-2019 Instruction Type:Patient Education Patient Instructions Indication:BMI 23.0-23.9, adult Start:10-Jul-2019 Instruction Type:Provider Instructions for Treatment How to access health informa tion online Indication:Hypothyroidism Start:13-Jan-2019 Instruction Type:Patient Education How to access health informa tion online - Detail Indication:Hypothyroidism Start:13-Jan-2019 Instruction Type:Patient Education Patient Instructions Indication:Hypothyroidism Start:13-Jan-2019 Instruction Type:Provider Instructions for Treatment How to access health informa tion online Indication:Well woman exam with routine gynecological exam Start:14-Jul-2018 Instruction Type:Patient Education How to access health informa tion online - Detail Indication:Well woman exam with routine gynecological exam Start:14-Jul-2018 Instruction Type:Patient Education Patient Instructions Indication:Well woman exam with routine gynecological exam Start:14-Jul-2018 Instruction Type:Provider Instructions for Treatment How to access health informa tion online Indication:Well woman exam with routine gynecological exam Start:18-Jun-2017 Instruction Type:Patient Education How to access health informa tion online - Detail Indication:Well woman exam with routine gynecological exam Start:18-Jun-2017 Instruction Type:Patient Education Patient Instructions Indication:Well woman exam with routine gynecological exam Start:18-Jun-2017 Instruction Type:Provider Instructions for Treatment How to access health informa tion online - Detail Indication:Hypercholesterolemia Start:17-Dec-2016 Instruction Type:Patient Education How to access health informa tion online Indication:Hypercholesterolemia Start:17-Dec-2016 Instruction Type:Patient Education How to access health informa tion online Indication:Hypothyroidism Start:18-Jun-2016 Instruction Type:Patient Education How to access health informa tion online - Detail Indication:Hypothyroidism Start:18-Jun-2016 Instruction Type:Patient Education Patient Instructions Indication:Hypothyroidism Start:18-Jun-2016 Instruction Type:Provider Instructions for Treatment How to access health informa tion online Indication:Hypothyroidism Start:02-Dec-2015 Instruction Type:Patient Education How to access health informa tion online - Detail Indication:Hypothyroidism Start:02-Dec-2015 Instruction Type:Patient Education Patient Instructions Indication:Hypothyroidism Start:02-Dec-2015 Instruction Type:Provider Instructions for Treatment Patient Instructions Indication:Hypothyroidism Start:18-Jun-2015 Instruction Type:Provider Instructions for Treatment Patient Instructions Indication:Hypoglycemia Start:30-Apr-2015 Instruction Type:Provider Instructions for Treatment How to access health informa tion online Indication:Hypothyroidism Start:24-Dec-2014 Instruction Type:Patient Education How to access health informa tion online - Detail Indication:Hypothyroidism Start:24-Dec-2014 Instruction Type:Patient Education Patient Instructions Indication:Hypothyroidism Start:24-Dec-2014 Instruction Type:Provider Instructions for Treatment Patient Instructions Indication:Sinusitis, acute Start:19-Mar-2014 Instruction Type:Provider Instructions for Treatment How to access health informa tion online Indication:Sinusitis, acute Start:19-Mar-2014 Instruction Type:Patient Education How to access health informa tion online - Detail Indication:Sinusitis, acute Start:19-Mar-2014 Instruction Type:Patient Education How to access health informa tion online Indication:Hypothyroidism Start:15-Jan-2014 Instruction Type:Patient Education How to access health informa tion online - Detail Indication:Hypothyroidism Start:15-Jan-2014 Instruction Type:Patient Education Patient Instructions Indication:Hypothyroidism Start:15-Jan-2014 Instruction Type:Provider Instructions for Treatment Patient Instructions Indication:Hypothyroidism Start:17-Jul-2013 Instruction Type:Provider Instructions for Treatment Patient Instructions Indication:Sinusitis, acute Start:30-Mar-2013 Instruction Type:Provider Instructions for Treatment Patient Instructions Indication:Cough Start:30-Mar-2013 Instruction Type:Provider Instructions for Treatment Patient Instructions Indication:Well woman exam with routine gynecological exam Start:02-Jan-2013 Instruction Type:Provider Instructions for Treatment Name Dates Details How to access health informa tion online Indication:Exposure to SARS virus Start:26-Apr-2020 Instruction Type:Patient Education How to access health informa tion online - Detail Indication:Exposure to SARS virus Start:26-Apr-2020 Instruction Type:Patient Education Patient Instructions Indication:Exposure to SARS virus Start:26-Apr-2020 Instruction Type:Provider Instructions for Treatment How to access health informa tion online Indication:Hypercholesterolemia Start:02-Jan-2020 Instruction Type:Patient Education How to access health informa tion online - Detail Indication:Hypercholesterolemia Start:02-Jan-2020 Instruction Type:Patient Education Patient Instructions Indication:Hypercholesterolemia Start:02-Jan-2020 Instruction Type:Provider Instructions for Treatment How to access health informa tion online Indication:BMI 23.0-23.9, adult Start:10-Jul-2019 Instruction Type:Patient Education How to access health informa tion online - Detail Indication:BMI 23.0-23.9, adult Start:10-Jul-2019 Instruction Type:Patient Education Patient Instructions Indication:BMI 23.0-23.9, adult Start:10-Jul-2019 Instruction Type:Provider Instructions for Treatment How to access health informa tion online Indication:Hypothyroidism Start:13-Jan-2019 Instruction Type:Patient Education How to access health informa tion online - Detail Indication:Hypothyroidism Start:13-Jan-2019 Instruction Type:Patient Education Patient Instructions Indication:Hypothyroidism Start:13-Jan-2019 Instruction Type:Provider Instructions for Treatment How to access health informa tion online Indication:Well woman exam with routine gynecological exam Start:14-Jul-2018 Instruction Type:Patient Education How to access health informa tion online - Detail Indication:Well woman exam with routine gynecological exam Start:14-Jul-2018 Instruction Type:Patient Education Patient Instructions Indication:Well woman exam with routine gynecological exam Start:14-Jul-2018 Instruction Type:Provider Instructions for Treatment How to access health informa tion online Indication:Well woman exam with routine gynecological exam Start:18-Jun-2017 Instruction Type:Patient Education How to access health informa tion online - Detail Indication:Well woman exam with routine gynecological exam Start:18-Jun-2017 Instruction Type:Patient Education Patient Instructions Indication:Well woman exam with routine gynecological exam Start:18-Jun-2017 Instruction Type:Provider Instructions for Treatment How to access health informa tion online - Detail Indication:Hypercholesterolemia Start:17-Dec-2016 Instruction Type:Patient Education How to access health informa tion online Indication:Hypercholesterolemia Start:17-Dec-2016 Instruction Type:Patient Education How to access health informa tion online Indication:Hypothyroidism Start:18-Jun-2016 Instruction Type:Patient Education How to access health informa tion online - Detail Indication:Hypothyroidism Start:18-Jun-2016 Instruction Type:Patient Education Patient Instructions Indication:Hypothyroidism Start:18-Jun-2016 Instruction Type:Provider Instructions for Treatment How to access health informa tion online Indication:Hypothyroidism Start:02-Dec-2015 Instruction Type:Patient Education How to access health informa tion online - Detail Indication:Hypothyroidism Start:02-Dec-2015 Instruction Type:Patient Education Patient Instructions Indication:Hypothyroidism Start:02-Dec-2015 Instruction Type:Provider Instructions for Treatment Patient Instructions Indication:Hypothyroidism Start:18-Jun-2015 Instruction Type:Provider Instructions for Treatment Patient Instructions Indication:Hypoglycemia Start:30-Apr-2015 Instruction Type:Provider Instructions for Treatment How to access health informa tion online Indication:Hypothyroidism Start:24-Dec-2014 Instruction Type:Patient Education How to access health informa tion online - Detail Indication:Hypothyroidism Start:24-Dec-2014 Instruction Type:Patient Education Patient Instructions Indication:Hypothyroidism Start:24-Dec-2014 Instruction Type:Provider Instructions for Treatment Patient Instructions Indication:Sinusitis, acute Start:19-Mar-2014 Instruction Type:Provider Instructions for Treatment How to access health informa tion online Indication:Sinusitis, acute Start:19-Mar-2014 Instruction Type:Patient Education How to access health informa tion online - Detail Indication:Sinusitis, acute Start:19-Mar-2014 Instruction Type:Patient Education How to access health informa tion online Indication:Hypothyroidism Start:15-Jan-2014 Instruction Type:Patient Education How to access health informa tion online - Detail Indication:Hypothyroidism Start:15-Jan-2014 Instruction Type:Patient Education Patient Instructions Indication:Hypothyroidism Start:15-Jan-2014 Instruction Type:Provider Instructions for Treatment Patient Instructions Indication:Hypothyroidism Start:17-Jul-2013 Instruction Type:Provider Instructions for Treatment Patient Instructions Indication:Sinusitis, acute Start:30-Mar-2013 Instruction Type:Provider Instructions for Treatment Patient Instructions Indication:Cough Start:30-Mar-2013 Instruction Type:Provider Instructions for Treatment Patient Instructions Indication:Well woman exam with routine gynecological exam Start:02-Jan-2013 Instruction Type:Provider Instructions for Treatment Name Dates Details How to access health informa tion online Indication:Hypercholesterolemia Start:02-Jan-2020 Instruction Type:Patient Education How to access health informa tion online - Detail Indication:Hypercholesterolemia Start:02-Jan-2020 Instruction Type:Patient Education Patient Instructions Indication:Hypercholesterolemia Start:02-Jan-2020 Instruction Type:Provider Instructions for Treatment How to access health informa tion online Indication:BMI 23.0-23.9, adult Start:10-Jul-2019 Instruction Type:Patient Education How to access health informa tion online - Detail Indication:BMI 23.0-23.9, adult Start:10-Jul-2019 Instruction Type:Patient Education Patient Instructions Indication:BMI 23.0-23.9, adult Start:10-Jul-2019 Instruction Type:Provider Instructions for Treatment How to access health informa tion online Indication:Hypothyroidism Start:13-Jan-2019 Instruction Type:Patient Education How to access health informa tion online - Detail Indication:Hypothyroidism Start:13-Jan-2019 Instruction Type:Patient Education Patient Instructions Indication:Hypothyroidism Start:13-Jan-2019 Instruction Type:Provider Instructions for Treatment How to access health informa tion online Indication:Well woman exam with routine gynecological exam Start:14-Jul-2018 Instruction Type:Patient Education How to access health informa tion online - Detail Indication:Well woman exam with routine gynecological exam Start:14-Jul-2018 Instruction Type:Patient Education Patient Instructions Indication:Well woman exam with routine gynecological exam Start:14-Jul-2018 Instruction Type:Provider Instructions for Treatment How to access health informa tion online Indication:Well woman exam with routine gynecological exam Start:18-Jun-2017 Instruction Type:Patient Education How to access health informa tion online - Detail Indication:Well woman exam with routine gynecological exam Start:18-Jun-2017 Instruction Type:Patient Education Patient Instructions Indication:Well woman exam with routine gynecological exam Start:18-Jun-2017 Instruction Type:Provider Instructions for Treatment How to access health informa tion online - Detail Indication:Hypercholesterolemia Start:17-Dec-2016 Instruction Type:Patient Education How to access health informa tion online Indication:Hypercholesterolemia Start:17-Dec-2016 Instruction Type:Patient Education How to access health informa tion online Indication:Hypothyroidism Start:18-Jun-2016 Instruction Type:Patient Education How to access health informa tion online - Detail Indication:Hypothyroidism Start:18-Jun-2016 Instruction Type:Patient Education Patient Instructions Indication:Hypothyroidism Start:18-Jun-2016 Instruction Type:Provider Instructions for Treatment How to access health informa tion online Indication:Hypothyroidism Start:02-Dec-2015 Instruction Type:Patient Education How to access health informa tion online - Detail Indication:Hypothyroidism Start:02-Dec-2015 Instruction Type:Patient Education Patient Instructions Indication:Hypothyroidism Start:02-Dec-2015 Instruction Type:Provider Instructions for Treatment Patient Instructions Indication:Hypothyroidism Start:18-Jun-2015 Instruction Type:Provider Instructions for Treatment Patient Instructions Indication:Hypoglycemia Start:30-Apr-2015 Instruction Type:Provider Instructions for Treatment How to access health informa tion online Indication:Hypothyroidism Start:24-Dec-2014 Instruction Type:Patient Education How to access health informa tion online - Detail Indication:Hypothyroidism Start:24-Dec-2014 Instruction Type:Patient Education Patient Instructions Indication:Hypothyroidism Start:24-Dec-2014 Instruction Type:Provider Instructions for Treatment Patient Instructions Indication:Sinusitis, acute Start:19-Mar-2014 Instruction Type:Provider Instructions for Treatment How to access health informa tion online Indication:Sinusitis, acute Start:19-Mar-2014 Instruction Type:Patient Education How to access health informa tion online - Detail Indication:Sinusitis, acute Start:19-Mar-2014 Instruction Type:Patient Education How to access health informa tion online Indication:Hypothyroidism Start:15-Jan-2014 Instruction Type:Patient Education How to access health informa tion online - Detail Indication:Hypothyroidism Start:15-Jan-2014 Instruction Type:Patient Education Patient Instructions Indication:Hypothyroidism Start:15-Jan-2014 Instruction Type:Provider Instructions for Treatment Patient Instructions Indication:Hypothyroidism Start:17-Jul-2013 Instruction Type:Provider Instructions for Treatment Patient Instructions Indication:Sinusitis, acute Start:30-Mar-2013 Instruction Type:Provider Instructions for Treatment Patient Instructions Indication:Cough Start:30-Mar-2013 Instruction Type:Provider Instructions for Treatment Patient Instructions Indication:Well woman exam with routine gynecological exam Start:02-Jan-2013 Instruction Type:Provider Instructions for Treatment Name Dates Details How to access health informa tion online Indication:BMI 23.0-23.9, adult Start:10-Jul-2019 Instruction Type:Patient Education How to access health informa tion online - Detail Indication:BMI 23.0-23.9, adult Start:10-Jul-2019 Instruction Type:Patient Education Patient Instructions Indication:BMI 23.0-23.9, adult Start:10-Jul-2019 Instruction Type:Provider Instructions for Treatment How to access health informa tion online Indication:Hypothyroidism Start:13-Jan-2019 Instruction Type:Patient Education How to access health informa tion online - Detail Indication:Hypothyroidism Start:13-Jan-2019 Instruction Type:Patient Education Patient Instructions Indication:Hypothyroidism Start:13-Jan-2019 Instruction Type:Provider Instructions for Treatment How to access health informa tion online Indication:Well woman exam with routine gynecological exam Start:14-Jul-2018 Instruction Type:Patient Education How to access health informa tion online - Detail Indication:Well woman exam with routine gynecological exam Start:14-Jul-2018 Instruction Type:Patient Education Patient Instructions Indication:Well woman exam with routine gynecological exam Start:14-Jul-2018 Instruction Type:Provider Instructions for Treatment How to access health informa tion online Indication:Well woman exam with routine gynecological exam Start:18-Jun-2017 Instruction Type:Patient Education How to access health informa tion online - Detail Indication:Well woman exam with routine gynecological exam Start:18-Jun-2017 Instruction Type:Patient Education Patient Instructions Indication:Well woman exam with routine gynecological exam Start:18-Jun-2017 Instruction Type:Provider Instructions for Treatment How to access health informa tion online - Detail Indication:Hypercholesterolemia Start:17-Dec-2016 Instruction Type:Patient Education How to access health informa tion online Indication:Hypercholesterolemia Start:17-Dec-2016 Instruction Type:Patient Education How to access health informa tion online Indication:Hypothyroidism Start:18-Jun-2016 Instruction Type:Patient Education How to access health informa tion online - Detail Indication:Hypothyroidism Start:18-Jun-2016 Instruction Type:Patient Education Patient Instructions Indication:Hypothyroidism Start:18-Jun-2016 Instruction Type:Provider Instructions for Treatment How to access health informa tion online Indication:Hypothyroidism Start:02-Dec-2015 Instruction Type:Patient Education How to access health informa tion online - Detail Indication:Hypothyroidism Start:02-Dec-2015 Instruction Type:Patient Education Patient Instructions Indication:Hypothyroidism Start:02-Dec-2015 Instruction Type:Provider Instructions for Treatment Patient Instructions Indication:Hypothyroidism Start:18-Jun-2015 Instruction Type:Provider Instructions for Treatment Patient Instructions Indication:Hypoglycemia Start:30-Apr-2015 Instruction Type:Provider Instructions for Treatment How to access health informa tion online Indication:Hypothyroidism Start:24-Dec-2014 Instruction Type:Patient Education How to access health informa tion online - Detail Indication:Hypothyroidism Start:24-Dec-2014 Instruction Type:Patient Education Patient Instructions Indication:Hypothyroidism Start:24-Dec-2014 Instruction Type:Provider Instructions for Treatment Patient Instructions Indication:Sinusitis, acute Start:19-Mar-2014 Instruction Type:Provider Instructions for Treatment How to access health informa tion online Indication:Sinusitis, acute Start:19-Mar-2014 Instruction Type:Patient Education How to access health informa tion online - Detail Indication:Sinusitis, acute Start:19-Mar-2014 Instruction Type:Patient Education How to access health informa tion online Indication:Hypothyroidism Start:15-Jan-2014 Instruction Type:Patient Education How to access health informa tion online - Detail Indication:Hypothyroidism Start:15-Jan-2014 Instruction Type:Patient Education Patient Instructions Indication:Hypothyroidism Start:15-Jan-2014 Instruction Type:Provider Instructions for Treatment Patient Instructions Indication:Hypothyroidism Start:17-Jul-2013 Instruction Type:Provider Instructions for Treatment Patient Instructions Indication:Sinusitis, acute Start:30-Mar-2013 Instruction Type:Provider Instructions for Treatment Patient Instructions Indication:Cough Start:30-Mar-2013 Instruction Type:Provider Instructions for Treatment Patient Instructions Indication:Well woman exam with routine gynecological exam Start:02-Jan-2013 Instruction Type:Provider Instructions for Treatment Name Dates Details How to access health informa tion online Indication:Well woman exam with routine gynecological exam Start:14-Jul-2018 Instruction Type:Patient Education How to access health informa tion online - Detail Indication:Well woman exam with routine gynecological exam Start:14-Jul-2018 Instruction Type:Patient Education Patient Instructions Indication:Well woman exam with routine gynecological exam Start:14-Jul-2018 Instruction Type:Provider Instructions for Treatment How to access health informa tion online Indication:Well woman exam with routine gynecological exam Start:18-Jun-2017 Instruction Type:Patient Education How to access health informa tion online - Detail Indication:Well woman exam with routine gynecological exam Start:18-Jun-2017 Instruction Type:Patient Education Patient Instructions Indication:Well woman exam with routine gynecological exam Start:18-Jun-2017 Instruction Type:Provider Instructions for Treatment How to access health informa tion online - Detail Indication:Hypercholesterolemia Start:17-Dec-2016 Instruction Type:Patient Education How to access health informa tion online Indication:Hypercholesterolemia Start:17-Dec-2016 Instruction Type:Patient Education How to access health informa tion online Indication:Hypothyroidism Start:18-Jun-2016 Instruction Type:Patient Education How to access health informa tion online - Detail Indication:Hypothyroidism Start:18-Jun-2016 Instruction Type:Patient Education Patient Instructions Indication:Hypothyroidism Start:18-Jun-2016 Instruction Type:Provider Instructions for Treatment How to access health informa tion online Indication:Hypothyroidism Start:02-Dec-2015 Instruction Type:Patient Education How to access health informa tion online - Detail Indication:Hypothyroidism Start:02-Dec-2015 Instruction Type:Patient Education Patient Instructions Indication:Hypothyroidism Start:02-Dec-2015 Instruction Type:Provider Instructions for Treatment Patient Instructions Indication:Hypothyroidism Start:18-Jun-2015 Instruction Type:Provider Instructions for Treatment Patient Instructions Indication:Hypoglycemia Start:30-Apr-2015 Instruction Type:Provider Instructions for Treatment How to access health informa tion online Indication:Hypothyroidism Start:24-Dec-2014 Instruction Type:Patient Education How to access health informa tion online - Detail Indication:Hypothyroidism Start:24-Dec-2014 Instruction Type:Patient Education Patient Instructions Indication:Hypothyroidism Start:24-Dec-2014 Instruction Type:Provider Instructions for Treatment Patient Instructions Indication:Sinusitis, acute Start:19-Mar-2014 Instruction Type:Provider Instructions for Treatment How to access health informa tion online Indication:Sinusitis, acute Start:19-Mar-2014 Instruction Type:Patient Education How to access health informa tion online - Detail Indication:Sinusitis, acute Start:19-Mar-2014 Instruction Type:Patient Education How to access health informa tion online Indication:Hypothyroidism Start:15-Jan-2014 Instruction Type:Patient Education How to access health informa tion online - Detail Indication:Hypothyroidism Start:15-Jan-2014 Instruction Type:Patient Education Patient Instructions Indication:Hypothyroidism Start:15-Jan-2014 Instruction Type:Provider Instructions for Treatment Patient Instructions Indication:Hypothyroidism Start:17-Jul-2013 Instruction Type:Provider Instructions for Treatment Patient Instructions Indication:Sinusitis, acute Start:30-Mar-2013 Instruction Type:Provider Instructions for Treatment Patient Instructions Indication:Cough Start:30-Mar-2013 Instruction Type:Provider Instructions for Treatment Patient Instructions Indication:Well woman exam with routine gynecological exam Start:02-Jan-2013 Instruction Type:Provider Instructions for Treatment Name Dates Details How to access health informa tion online Indication:Well woman exam with routine gynecological exam Start:14-Jul-2018 Instruction Type:Patient Education How to access health informa tion online - Detail Indication:Well woman exam with routine gynecological exam Start:14-Jul-2018 Instruction Type:Patient Education Patient Instructions Indication:Well woman exam with routine gynecological exam Start:14-Jul-2018 Instruction Type:Provider Instructions for Treatment How to access health informa tion online Indication:Well woman exam with routine gynecological exam Start:18-Jun-2017 Instruction Type:Patient Education How to access health informa tion online - Detail Indication:Well woman exam with routine gynecological exam Start:18-Jun-2017 Instruction Type:Patient Education Patient Instructions Indication:Well woman exam with routine gynecological exam Start:18-Jun-2017 Instruction Type:Provider Instructions for Treatment How to access health informa tion online - Detail Indication:Hypercholesterolemia Start:17-Dec-2016 Instruction Type:Patient Education How to access health informa tion online Indication:Hypercholesterolemia Start:17-Dec-2016 Instruction Type:Patient Education How to access health informa tion online Indication:Hypothyroidism Start:18-Jun-2016 Instruction Type:Patient Education How to access health informa tion online - Detail Indication:Hypothyroidism Start:18-Jun-2016 Instruction Type:Patient Education Patient Instructions Indication:Hypothyroidism Start:18-Jun-2016 Instruction Type:Provider Instructions for Treatment How to access health informa tion online Indication:Hypothyroidism Start:02-Dec-2015 Instruction Type:Patient Education How to access health informa tion online - Detail Indication:Hypothyroidism Start:02-Dec-2015 Instruction Type:Patient Education Patient Instructions Indication:Hypothyroidism Start:02-Dec-2015 Instruction Type:Provider Instructions for Treatment Patient Instructions Indication:Hypothyroidism Start:18-Jun-2015 Instruction Type:Provider Instructions for Treatment Patient Instructions Indication:Hypoglycemia Start:30-Apr-2015 Instruction Type:Provider Instructions for Treatment How to access health informa tion online Indication:Hypothyroidism Start:24-Dec-2014 Instruction Type:Patient Education How to access health informa tion online - Detail Indication:Hypothyroidism Start:24-Dec-2014 Instruction Type:Patient Education Patient Instructions Indication:Hypothyroidism Start:24-Dec-2014 Instruction Type:Provider Instructions for Treatment Patient Instructions Indication:Sinusitis, acute Start:19-Mar-2014 Instruction Type:Provider Instructions for Treatment How to access health informa tion online Indication:Sinusitis, acute Start:19-Mar-2014 Instruction Type:Patient Education How to access health informa tion online - Detail Indication:Sinusitis, acute Start:19-Mar-2014 Instruction Type:Patient Education How to access health informa tion online Indication:Hypothyroidism Start:15-Jan-2014 Instruction Type:Patient Education How to access health informa tion online - Detail Indication:Hypothyroidism Start:15-Jan-2014 Instruction Type:Patient Education Patient Instructions Indication:Hypothyroidism Start:15-Jan-2014 Instruction Type:Provider Instructions for Treatment Patient Instructions Indication:Hypothyroidism Start:17-Jul-2013 Instruction Type:Provider Instructions for Treatment Patient Instructions Indication:Sinusitis, acute Start:30-Mar-2013 Instruction Type:Provider Instructions for Treatment Patient Instructions Indication:Cough Start:30-Mar-2013 Instruction Type:Provider Instructions for Treatment Patient Instructions Indication:Well woman exam with routine gynecological exam Start:02-Jan-2013 Instruction Type:Provider Instructions for Treatment Name Dates Details How to access health informa tion online Indication:Exposure to SARS virus Start:26-Apr-2020 Instruction Type:Patient Education How to access health informa tion online - Detail Indication:Exposure to SARS virus Start:26-Apr-2020 Instruction Type:Patient Education Patient Instructions Indication:Exposure to SARS virus Start:26-Apr-2020 Instruction Type:Provider Instructions for Treatment How to access health informa tion online Indication:Hypercholesterolemia Start:02-Jan-2020 Instruction Type:Patient Education How to access health informa tion online - Detail Indication:Hypercholesterolemia Start:02-Jan-2020 Instruction Type:Patient Education Patient Instructions Indication:Hypercholesterolemia Start:02-Jan-2020 Instruction Type:Provider Instructions for Treatment How to access health informa tion online Indication:BMI 23.0-23.9, adult Start:10-Jul-2019 Instruction Type:Patient Education How to access health informa tion online - Detail Indication:BMI 23.0-23.9, adult Start:10-Jul-2019 Instruction Type:Patient Education Patient Instructions Indication:BMI 23.0-23.9, adult Start:10-Jul-2019 Instruction Type:Provider Instructions for Treatment How to access health informa tion online Indication:Hypothyroidism Start:13-Jan-2019 Instruction Type:Patient Education How to access health informa tion online - Detail Indication:Hypothyroidism Start:13-Jan-2019 Instruction Type:Patient Education Patient Instructions Indication:Hypothyroidism Start:13-Jan-2019 Instruction Type:Provider Instructions for Treatment How to access health informa tion online Indication:Well woman exam with routine gynecological exam Start:14-Jul-2018 Instruction Type:Patient Education How to access health informa tion online - Detail Indication:Well woman exam with routine gynecological exam Start:14-Jul-2018 Instruction Type:Patient Education Patient Instructions Indication:Well woman exam with routine gynecological exam Start:14-Jul-2018 Instruction Type:Provider Instructions for Treatment How to access health informa tion online Indication:Well woman exam with routine gynecological exam Start:18-Jun-2017 Instruction Type:Patient Education How to access health informa tion online - Detail Indication:Well woman exam with routine gynecological exam Start:18-Jun-2017 Instruction Type:Patient Education Patient Instructions Indication:Well woman exam with routine gynecological exam Start:18-Jun-2017 Instruction Type:Provider Instructions for Treatment How to access health informa tion online - Detail Indication:Hypercholesterolemia Start:17-Dec-2016 Instruction Type:Patient Education How to access health informa tion online Indication:Hypercholesterolemia Start:17-Dec-2016 Instruction Type:Patient Education How to access health informa tion online Indication:Hypothyroidism Start:18-Jun-2016 Instruction Type:Patient Education How to access health informa tion online - Detail Indication:Hypothyroidism Start:18-Jun-2016 Instruction Type:Patient Education Patient Instructions Indication:Hypothyroidism Start:18-Jun-2016 Instruction Type:Provider Instructions for Treatment How to access health informa tion online Indication:Hypothyroidism Start:02-Dec-2015 Instruction Type:Patient Education How to access health informa tion online - Detail Indication:Hypothyroidism Start:02-Dec-2015 Instruction Type:Patient Education Patient Instructions Indication:Hypothyroidism Start:02-Dec-2015 Instruction Type:Provider Instructions for Treatment Patient Instructions Indication:Hypothyroidism Start:18-Jun-2015 Instruction Type:Provider Instructions for Treatment Patient Instructions Indication:Hypoglycemia Start:30-Apr-2015 Instruction Type:Provider Instructions for Treatment How to access health informa tion online Indication:Hypothyroidism Start:24-Dec-2014 Instruction Type:Patient Education How to access health informa tion online - Detail Indication:Hypothyroidism Start:24-Dec-2014 Instruction Type:Patient Education Patient Instructions Indication:Hypothyroidism Start:24-Dec-2014 Instruction Type:Provider Instructions for Treatment Patient Instructions Indication:Sinusitis, acute Start:19-Mar-2014 Instruction Type:Provider Instructions for Treatment How to access health informa tion online Indication:Sinusitis, acute Start:19-Mar-2014 Instruction Type:Patient Education How to access health informa tion online - Detail Indication:Sinusitis, acute Start:19-Mar-2014 Instruction Type:Patient Education How to access health informa tion online Indication:Hypothyroidism Start:15-Jan-2014 Instruction Type:Patient Education How to access health informa tion online - Detail Indication:Hypothyroidism Start:15-Jan-2014 Instruction Type:Patient Education Patient Instructions Indication:Hypothyroidism Start:15-Jan-2014 Instruction Type:Provider Instructions for Treatment Patient Instructions Indication:Hypothyroidism Start:17-Jul-2013 Instruction Type:Provider Instructions for Treatment Patient Instructions Indication:Sinusitis, acute Start:30-Mar-2013 Instruction Type:Provider Instructions for Treatment Patient Instructions Indication:Cough Start:30-Mar-2013 Instruction Type:Provider Instructions for Treatment Patient Instructions Indication:Well woman exam with routine gynecological exam Start:02-Jan-2013 Instruction Type:Provider Instructions for Treatment Name Dates Details How to access health informa tion online Indication:Exposure to SARS virus Start:26-Apr-2020 Instruction Type:Patient Education How to access health informa tion online - Detail Indication:Exposure to SARS virus Start:26-Apr-2020 Instruction Type:Patient Education Patient Instructions Indication:Exposure to SARS virus Start:26-Apr-2020 Instruction Type:Provider Instructions for Treatment How to access health informa tion online Indication:Hypercholesterolemia Start:02-Jan-2020 Instruction Type:Patient Education How to access health informa tion online - Detail Indication:Hypercholesterolemia Start:02-Jan-2020 Instruction Type:Patient Education Patient Instructions Indication:Hypercholesterolemia Start:02-Jan-2020 Instruction Type:Provider Instructions for Treatment How to access health informa tion online Indication:BMI 23.0-23.9, adult Start:10-Jul-2019 Instruction Type:Patient Education How to access health informa tion online - Detail Indication:BMI 23.0-23.9, adult Start:10-Jul-2019 Instruction Type:Patient Education Patient Instructions Indication:BMI 23.0-23.9, adult Start:10-Jul-2019 Instruction Type:Provider Instructions for Treatment How to access health informa tion online Indication:Hypothyroidism Start:13-Jan-2019 Instruction Type:Patient Education How to access health informa tion online - Detail Indication:Hypothyroidism Start:13-Jan-2019 Instruction Type:Patient Education Patient Instructions Indication:Hypothyroidism Start:13-Jan-2019 Instruction Type:Provider Instructions for Treatment How to access health informa tion online Indication:Well woman exam with routine gynecological exam Start:14-Jul-2018 Instruction Type:Patient Education How to access health informa tion online - Detail Indication:Well woman exam with routine gynecological exam Start:14-Jul-2018 Instruction Type:Patient Education Patient Instructions Indication:Well woman exam with routine gynecological exam Start:14-Jul-2018 Instruction Type:Provider Instructions for Treatment How to access health informa tion online Indication:Well woman exam with routine gynecological exam Start:18-Jun-2017 Instruction Type:Patient Education How to access health informa tion online - Detail Indication:Well woman exam with routine gynecological exam Start:18-Jun-2017 Instruction Type:Patient Education Patient Instructions Indication:Well woman exam with routine gynecological exam Start:18-Jun-2017 Instruction Type:Provider Instructions for Treatment How to access health informa tion online - Detail Indication:Hypercholesterolemia Start:17-Dec-2016 Instruction Type:Patient Education How to access health informa tion online Indication:Hypercholesterolemia Start:17-Dec-2016 Instruction Type:Patient Education How to access health informa tion online Indication:Hypothyroidism Start:18-Jun-2016 Instruction Type:Patient Education How to access health informa tion online - Detail Indication:Hypothyroidism Start:18-Jun-2016 Instruction Type:Patient Education Patient Instructions Indication:Hypothyroidism Start:18-Jun-2016 Instruction Type:Provider Instructions for Treatment How to access health informa tion online Indication:Hypothyroidism Start:02-Dec-2015 Instruction Type:Patient Education How to access health informa tion online - Detail Indication:Hypothyroidism Start:02-Dec-2015 Instruction Type:Patient Education Patient Instructions Indication:Hypothyroidism Start:02-Dec-2015 Instruction Type:Provider Instructions for Treatment Patient Instructions Indication:Hypothyroidism Start:18-Jun-2015 Instruction Type:Provider Instructions for Treatment Patient Instructions Indication:Hypoglycemia Start:30-Apr-2015 Instruction Type:Provider Instructions for Treatment How to access health informa tion online Indication:Hypothyroidism Start:24-Dec-2014 Instruction Type:Patient Education How to access health informa tion online - Detail Indication:Hypothyroidism Start:24-Dec-2014 Instruction Type:Patient Education Patient Instructions Indication:Hypothyroidism Start:24-Dec-2014 Instruction Type:Provider Instructions for Treatment Patient Instructions Indication:Sinusitis, acute Start:19-Mar-2014 Instruction Type:Provider Instructions for Treatment How to access health informa tion online Indication:Sinusitis, acute Start:19-Mar-2014 Instruction Type:Patient Education How to access health informa tion online - Detail Indication:Sinusitis, acute Start:19-Mar-2014 Instruction Type:Patient Education How to access health informa tion online Indication:Hypothyroidism Start:15-Jan-2014 Instruction Type:Patient Education How to access health informa tion online - Detail Indication:Hypothyroidism Start:15-Jan-2014 Instruction Type:Patient Education Patient Instructions Indication:Hypothyroidism Start:15-Jan-2014 Instruction Type:Provider Instructions for Treatment Patient Instructions Indication:Hypothyroidism Start:17-Jul-2013 Instruction Type:Provider Instructions for Treatment Patient Instructions Indication:Sinusitis, acute Start:30-Mar-2013 Instruction Type:Provider Instructions for Treatment Patient Instructions Indication:Cough Start:30-Mar-2013 Instruction Type:Provider Instructions for Treatment Patient Instructions Indication:Well woman exam with routine gynecological exam Start:02-Jan-2013 Instruction Type:Provider Instructions for Treatment Advance Directives No Advanced Directives Records Found Name Dates Details Immunization Registry [place] - Effective on 01/02/2020. Expiration date unspecified Effective:02-Jan-2020 Name Dates Details Immunization Registry [place] - Effective on 01/02/2020. Expiration date unspecified Effective:02-Jan-2020 Name Dates Details Immunization Registry [place] - Effective on 01/02/2020. Expiration date unspecified Effective:02-Jan-2020 Name Dates Details Immunization Registry [place] - Effective on 01/02/2020. Expiration date unspecified Effective:02-Jan-2020 Name Dates Details Immunization Registry [place] - Effective on 01/02/2020. Expiration date unspecified Effective:02-Jan-2020 Name Dates Details Immunization Registry [place] - Effective on 01/02/2020. Expiration date unspecified Effective:02-Jan-2020 Name Dates Details Immunization Registry [place] - Effective on 01/02/2020. Expiration date unspecified Effective:02-Jan-2020 Name Dates Details Immunization Registry [place] - Effective on 01/02/2020. Expiration date unspecified Effective:02-Jan-2020 Name Dates Details Immunization Registry [place] - Effective on 01/02/2020. Expiration date unspecified Effective:02-Jan-2020 Name Dates Details Immunization Registry [place] - Effective on 01/02/2020. Expiration date unspecified Effective:02-Jan-2020 Name Dates Details Immunization Registry [place] - Effective on 01/02/2020. Expiration date unspecified Effective:02-Jan-2020 Name Dates Details Immunization Registry [place] - Effective on 01/02/2020. Expiration date unspecified Effective:02-Jan-2020 Name Dates Details Immunization Registry [place] - Effective on 01/02/2020. Expiration date unspecified Effective:02-Jan-2020 Name Dates Details Immunization Registry [place] - Effective on 01/02/2020. Expiration date unspecified Effective:02-Jan-2020 Name Dates Details Immunization Registry [place] - Effective on 01/02/2020. Expiration date unspecified Effective:02-Jan-2020 Name Dates Details Immunization Registry [place] - Effective on 01/02/2020. Expiration date unspecified Effective:02-Jan-2020 Name Dates Details Immunization Registry [place] - Effective on 01/02/2020. Expiration date unspecified Effective:02-Jan-2020 Name Dates Details Immunization Registry [place] - Effective on 01/02/2020. Expiration date unspecified Effective:02-Jan-2020 Name Dates Details Immunization Registry [place] - Effective on 01/02/2020. Expiration date unspecified Effective:02-Jan-2020 Name Dates Details Immunization Registry [place] - Effective on 01/02/2020. Expiration date unspecified Effective:02-Jan-2020 Name Dates Details Immunization Registry [place] - Effective on 01/02/2020. Expiration date unspecified Effective:02-Jan-2020 Name Dates Details Immunization Registry [place] - Effective on 01/02/2020. Expiration date unspecified Effective:02-Jan-2020 Name Dates Details Immunization Registry [place] - Effective on 01/02/2020. Expiration date unspecified Effective:02-Jan-2020 Advance Directive Response Recorded Date/ Time Living Will Yes May 16 12:24pm Power of Visual Designer Yes May 16, 2021 12:24pm Name Dates Details Immunization Registry [place] - Effective on 01/02/2020. Expiration date unspecified Effective:02-Jan-2020 Name Dates Details Immunization Registry [place] - Effective on 01/02/2020. Expiration date unspecified Effective:02-Jan-2020 Advance Directive Response Recorded Date/ Time Living Will Yes May 16, 11:24am Power of Visual Designer Yes May 16, 2021 11:24am Name Dates Details Immunization Registry [place] - Effective on 01/02/2020. Expiration date unspecified Effective:02-Jan-2020 Name Dates Details Immunization Registry [place] - Effective on 01/02/2020. Expiration date unspecified Effective:02-Jan-2020 Name Dates Details Immunization Registry [place] - Effective on 01/02/2020. Expiration date unspecified Effective:02-Jan-2020 Name Dates Details Immunization Registry [place] - Effective on 01/02/2020. Expiration date unspecified Effective:02-Jan-2020 Name Dates Details Immunization Registry [place] - Effective on 01/02/2020. Expiration date unspecified Effective:02-Jan-2020 Name Dates Details Immunization Registry [place] - Effective on 01/02/2020. Expiration date unspecified Effective:02-Jan-2020 Name Dates Details Immunization Registry [place] - Effective on 01/02/2020. Expiration date unspecified Effective:02-Jan-2020 Name Dates Details Immunization Registry [place] - Effective on 01/02/2020. Expiration date unspecified Effective:02-Jan-2020 Name Dates Details Immunization Registry [place] - Effective on 01/02/2020. Expiration date unspecified Effective:02-Jan-2020 Name Dates Details Immunization Registry [place] - Effective on 01/02/2020. Expiration date unspecified Effective:02-Jan-2020 Name Dates Details Immunization Registry [place] - Effective on 01/02/2020. Expiration date unspecified Effective:02-Jan-2020 Name Dates Details Immunization Registry [place] - Effective on 01/02/2020. Expiration date unspecified Effective:02-Jan-2020 Summary Purpose Chief Complaint and Reason for Visit Chief Complaint SCREENING, POSTMENO, LUNG NODULE Chief Complaint PRE OP PRE OP Chief Complaint PRE OP PRE OP HEMATURIA LUNG NODULE Chief Complaint HEMATURIA LUNG NODULE HYPERCHOLESTEROLEMIA Additional Source Comments INFORMATION SOURCE (unrecogn ized section and content) DATE CREATED AUTHOR 09/17/2020 [facility] DATE CREATED AUTHOR AUTHOR'S ORGANIZ ATION 11/05/2022 [facility] DATE CREATED AUTHOR AUTHOR'S ORGANIZ ATION 04/17/2024 [facility] DATE CREATED AUTHOR AUTHOR'S ORGANIZ ATION 06/02/2024 [facility] Goals (unrecognized section and content) Goals may be documented in a n alternate sectionGoals may be documented in an alternate sectionGoals may be documented in an alternate sectionGoals may be documented in an alternate sectionGoals may be documented in an alternate section No data available for this section No data available for this section Care Teams (unrecognized sec tion and content) Team Status: Active Member Role Status Dates Dr. Jasper Chong MD Family Provider Active Dr. Jasper Chong MD Primary Care Provider Active Team Status: Active Member Role Status Dates Dr. Jasper Chong MD Primary Care Provider Active Dr. Ned Guardado MD Attending Provider Active Jose Guadalupe SYLVESTER PA-C Referring Provider Active Team Status: Inactive Member Role Status Dates Dr. Jasper Chong MD Primary Care Provider Active Jose Guadalupe SYLVESTER PA-C Attending Provider Active Dr. Antonella Patel MD Referring Provider Active Team Status: Inactive Member Role Status Dates Dr. Jasper Chong MD Primary Care Provi [email or web address], Attending Provider, Referring Provider Active Team Status: Active Member Role Status Dates Dr. Jasper Chong MD Primary Care Provi [email or web address], Attending Provider, Referring Provider Active FOR RECORDS PERTAINING TO PATIENTS WHO ARE OR HAVE BEEN ENROLLED IN A CHEMICAL DEPENDENCY/SUBSTANCEABUSE PROGRAM, SOME INFORMATION MAY BE OMITTED. This clinical summary was aggregated from multiple sources. Caution should be exercised in using it in the provision of clinical care. This summary normalizes information from multiple sources, and as a consequence, information in this document may materially change the coding, format and clinical context of patient data. In addition, data may be omitted in some cases. CLINICAL DECISIONS SHOULD BE BASED ON THE PRIMARY CLINICAL RECORDS. [employer] provides no warranty or guarantee of the accuracy or completeness of information in this document.
--- NOTE | 2025-02-25 01:20 | CT_ITS ---
PROCEDURE: CTA CHEST W/WO CONTRAST 02/24/2025 REASON FOR EXAM: PLEURITIC CHEST PAIN TECHNIQUE: Procedure Code: [id number] Modality: CT Procedure: CTA CHEST W/WO CONTRAST Multiplanar Sagittal and Coronal images were obtained. CONTRAST: 100 cc of Isovue 370 intravenous contrast. One or more dose reduction techniques were used (e.g., Automated exposure control, adjustment of the mA and/or kV according to patient size, use of iterative reconstruction technique). COMPARISON: Suggest 01/07/2022 FINDINGS: Hardware: None. Lymph nodes: No enlarged mediastinal, hilar, or axillary lymph nodes. Heart: Nonenlarged. No pericardial effusion. Thoracic Aorta: No aneurysm or dissection. Pulmonary Vessels: No pulmonary embolism. The pulmonary artery is normal in caliber. Lungs and Airways: Mild pulmonary vascular congestion. Stable 3 mm nodule in the right middle lobe, axial image 110 of 241. No focal consolidation or discrete pulmonary mass. Airways are patent. Pleura: No effusion or pneumothorax. Upper Abdomen: Unremarkable. Bones: Degenerative changes of the thoracic spine. No acute fractures. CT/CTA Chest W/WO Contrast IMPRESSION: 1. No acute aortic findings. No aneurysm or dissection. 2. No evidence of any pulmonary embolism. 3. Mild diffuse pulmonary vascular congestion. 4. Stable 3 mm nodule in the right middle lobe. Reading [facility]
[2025-02-25 01:30] LABS: Hematocrit 37.2 % (37-47); Hemoglobin 12.5 g/dL (12.0-15.0); Immature Granulocytes Count 0.020 X10^3/uL (0.0-0.0); Mean Corp Hgb Conc 33.6 g/dL (32-36); Mean Corpuscular Volume 91.0 fL (81-99); Mean Platelet Vol. 8.9 fl (6.2-12.0); NRBC Flagged by Analyzer 0 % (0-5); Platelet Count 238 K/mm3 (150-450); RBC Distribution Width CV 12.8 % (11.6-14.6); RBC Distribution Width SD 42.3 fl (35.1-43.9); Red Blood Count 4.09 M/mm3 (4.2-5.4); White Blood Count 9.6 K/mm3 (4.4-11.0)
[2025-02-25] MEDS: 0.9% Normal Saline (1000mL) 1,000 ML 999 ML IV (01:30)
[2025-02-25 02:01] LABS: Anion Gap 12 (5-15); BUN 29 mg/dL (4-19); BUN/Creat Ratio 30.1 RATIO (10-20); Calcium,Total 9.1 mg/dL (7.6-11.0); Carbon Dioxide 26.2 mmol/L (21.0-32.0); Chloride 104 mmol/L (98-108); Estimated Creatinine Clearance 50.32 ml/min (50-250); Glucose 132 mg/dL (70-99); Magnesium 2.2 mg/dL (1.5-2.2); Potassium 3.6 mmol/L (3.3-5.1); Troponin T High Sensitivity < 6 ng/L (<=14)
[2025-02-25 02:05] LABS: Prothrombin Time (Protime)PT. 12.1 SECONDS (11.7-14.9)
[2025-02-25 02:07] LABS: Partial Thromboplast Time 22.7 Seconds (24.1-36.2)
[2025-02-25 04:10] LABS: Troponin T High Sens 2 HR 9 ng/L (<=14)
--- NOTE | 2025-02-25 05:43 | ED.VIS.CHEST ---
HPI History of Present Illness Chief Complaint: Chest Pain Informant: patient and spouse/S.O. Narrative Narrative: Patient is a 69-year-old female with past medical history of hypothyroidism. She states that she was watching football this evening when she noticed pain in the left upper chest/shoulder region. She states that it was worse with inspiration. She states that there was no recent trauma or excessive activity that could have brought on the pain. She states that the pain has been present for approximately 2 hours and now it is moved down towards the middle of her chest. She states there is no associated nausea vomiting diaphoresis or shortness of breath. She denies any history of DVT/PE but does admit to recent travel to and from [place] over the past 2 weeks. She also states that she ate more pizza tonight than she is used to and is unsure if this could be related to a GI issue. Therefore with concern for potential cardiac event versus gastric issue and persistent pain she presents for evaluation [facility] Medical History Hypothyroidism Home Medications ?Medication ?Instructions ?Recorded ?Last Taken ?Type levothyroxine 88 mcg tablet 88 mcg PO DAILY 30 days #30 tabs 03/28/21 Unknown History [id number] carb-vit K 1 tab PO DAILY 03/28/21 Unknown History 18 mg iron-400 mcg-500 mg tablet (Women's Daily Formula) ezetimibe 10 mg tablet (Zetia) 10 mg PO DAILY 02/25/25 Unknown History Allergy/AdvReac Type Severity Reaction Status Date / Time No Known Allergies Allergy Verified 02/25/25 00:57 Family History Father CVA (cerebral vascular accident), Onset Age: 82 Surgical History H/O tubal ligation History of foot surgery Social History Smoking Status: Never smoker alcohol intake: current Alcohol type: wine ROS ROS ED Constitutional Constitutional ED: Denies chills or fever(s) Eyes Eyes: Denies change in vision ENT ENT ED: Denies sore throat Cardiovascular Cardiovascular: Reports chest pain; Denies palpitations or racing heartbeat Respiratory/Chest Respiratory/Chest: Denies cough or dyspnea Gastrointestinal Gastrointestinal: Denies abdominal pain, diarrhea, nausea or vomiting Genitourinary Genitourinary ED: Denies dysuria Musculoskeletal Musculoskeletal: Denies back pain Integumentary Denies rash Neurologic Neurologic: Denies headache(s) Hematologic/Lymphatic Hematologic/Lymphatic: Denies easy bleeding or easy bruising EXAM Physical Exam Const Vital Signs: 02/25/25 00:57 02/25/25 00:57 02/25/25 01:31 Temperature 98 F Temperature Source Temporal Pulse Rate 56 L 62 Respiratory Rate 18 19 H Respiratory Effort Normal Non-Labored Blood Pressure 103/66 103/67 Blood Pressure Mean 78 79 Pulse Ox 99 97 Oxygen Delivery Method Room Air Room Air 02/25/25 02:00 02/25/25 03:00 02/25/25 04:00 Temperature Temperature Source Pulse Rate 72 74 73 Respiratory Rate 23 H 17 16 Respiratory Effort Blood Pressure 112/76 124/84 H Blood Pressure Mean 88 97 Pulse Ox 97 98 96 Oxygen Delivery Method Room Air Room Air Room Air 02/25/25 05:00 Temperature Temperature Source Pulse Rate 70 Respiratory Rate 18 Respiratory Effort Blood Pressure Blood Pressure Mean Pulse Ox 99 Oxygen Delivery Method Room Air Positive well nourished and well developed General Appearance ED: well developed; Negative for pallor HEENT HEENT Narrative: Normocephalic atraumatic Eyes PERRL and EOMs intact bilaterally General Eye ED: Negative for scleral icterus Neck supple Neck Narrative: No nuchal rigidity or meningeal signs Chest Wall palpation of chest normal Chest Narrative: No reproducible pain with palpation no bony deformity or subcutaneous emphysema noted Resp normal respiratory effort and clear to auscultation bilaterally Cardio regular rhythm Rate: bradycardia and other Other Details: Slightly bradycardic rate with regular rhythm Radial and carotid pulses are equal and symmetric GI normal to inspection, nondistended, normoactive bowel sounds, soft to palpation, non-tender, non-distended and no masses GI Narrative: No voluntary guarding or rigidity or pulsatile mass Auscultation: normoactive bowel sounds Palpation: soft Back/Spine no CVA tenderness Extremity normal to inspection Extremity Narrative: No asymmetric edema no pitting edema negative Homans' sign bilaterally Neuro oriented x3, CN's II-XII intact bilaterally and no sensory deficits noted Sensorium / Orientation: alert Motor Exam: strength 5/5 throughout Psych mental status grossly normal Skin no rashes or lesions noted and no wounds Skin Narrative: No overlying ecchymosis or erythema to suggest infection or trauma General Skin Exam: Negative for jaundice or pallor Heart Score History: Moderately Suspicious ECG: Nonspecific Repolarization Age: >/= 65 years Risk Factors: 1 or 2 Risk Factors Troponin: </= Normal Limit Score: 5 MDM MDM MDM Narrative Medical decision making narrative: Patient arrived to the ER with stable vitals. She reported roughly 2 hours of left shoulder/upper chest pain that was pleuritic in nature. In order to rule out acute coronary syndrome versus cardiac dysrhythmia basic blood work with troponins will be obtained. The patient does not have a history of DVT or PE but she does report pleuritic chest pain and had a recent travel to and from [place] so therefore I will obtain a CTA of the chest to rule out PE or lung pathology such as pneumonia or pneumothorax. The patient is initial troponin was less than 6 the 2-hour delta increased by a value of 3 which is not clinically significant going against acute coronary syndrome. She was kept on the patient monitor and there was no cardiac dysrhythmia noted. The patient CTA did not reveal any sign of PE or dissection or pneumonia or pneumothorax. Her TSH is elevated but only by approximately 4 points which should not be clinically significant enough to cause symptoms. On reevaluation vitals remained stable and she is resting comfortably. As workup does not show acute coronary syndrome cardiac dysrhythmia PE dissection pneumonia or pneumothorax and physical exam does not suggest infectious cause such as cellulitis or abscess I do not feel the need for further intervention or workup and she is otherwise safe for discharge. History & Record Review Discussion w/independent historian: Patient and Significant other Lab Data Attestation: I reviewed the patient's lab results. Labs: Laboratory Results - last 24 hr 02/25/25 02/25/25 01:02 03:04 WBC 9.6 RBC 4.09 L Hgb 12.5 Hct 37.2 MCV 91.0 MCH 30.6 MCHC 33.6 RDW Std Deviation 42.3 RDW Coeff of Mitch 12.8 Plt Count 238 MPV 8.9 Immature Gran % (Auto) 0.200 Neut % (Auto) 63.7 Lymph % (Auto) 28.7 [place] % (Auto) 4.6 Eos % (Auto) 2.4 Baso % (Auto) 0.4 Absolute Neuts (auto) 6.1 Absolute Lymphs (auto) 2.75 Nucleated RBC % 0 PT 12.1 INR 0.9 APTT 22.7 L Sodium 141 Potassium 3.6 Chloride 104 Carbon Dioxide 26.2 Anion Gap 12 BUN 29 H Creatinine 0.96 Estim Creat Clear Calc 50.32 Est GFR (MDRD) Non-Af 63 BUN/Creatinine Ratio 30.1 H Glucose 132 H Calcium 9.1 Magnesium 2.2 Troponin T High Sens < 6 Troponin T Hi Sens 2 Hr 9 TSH 8.300 H Radiography Diagnostic Testing: Clinical Impression(s) from Imaging Studies Chest CTA 02/25/25 01:20 IMPRESSION: 1. No acute aortic findings. No aneurysm or dissection. 2. No evidence of any pulmonary embolism. 3. Mild diffuse pulmonary vascular congestion. 4. Stable 3 mm nodule in the right middle lobe. Reading Location: [facility] Discharge Plan Triage Chief Complaint: Chest Pain ED Provider: Saroj Haywood Dx/Rx/DC Orders Clinical Impression: Nonspecific chest pain, Hypothyroidism Instructions: ED Chest Pain, Uncertain Cause Prescriptions: No Action levothyroxine 88 mcg tablet 88 mcg PO DAILY 30 Days Qty: 30 Rx Instructions: Take 1/2 on Sundays Women's Daily Formula 18 mg iron-400 mcg-500 mg tablet 1 tab PO DAILY ezetimibe [Zetia] 10 mg tablet 10 mg PO DAILY Primary Care Provider: Merly Wesley Referrals: Merly Wesley MD [Primary Care Provider] - Activity Restrictions/Additional Instructions: Your workup today revealed no sign of active heart damage signs of blood clot pneumonia or tear off your aorta. Follow-up with your family doctor to discuss potential outpatient stress test and echo if symptoms persist and return to the ER should you have any further concerns. Print Language: Cypriot Disposition Disposition: Home, Self Care
== END 2025-02-25 06:10 | disposition home or self-care (01) ==
PROVIDERS: Emergency Provider Emergency Medicine; PCP Internal Medicine; Visit Provider Emergency Medicine
DX: R07.89 Other chest pain (principal); E03.9 Hypothyroidism, unspecified; Z79.890 Hormone replacement therapy; Z79.899 Other long term (current) drug therapy
CPT/HCPCS: 71275; 80048; 83735; 84443; 84484; 85025; 85610; 85730; 93005; 96360; 96361; 99283; Q9967; A4216

== ENCOUNTER → 2025-03-29 | Outpatient (CLI) | payer MEDICARE, OTHER, SELFPAY ==
--- NOTE | 2025-03-29 13:46 | BD_ITS ---
PROCEDURE: DEXA BONE DENSITY STUDY 03/29/2025 REASON FOR EXAM: F, age 69 y/o . Postmenopausal. TECHNIQUE: Procedure Code: [id number] Modality: DX Procedure: DEXA BONE DENSITY STUDY COMPARISON: None FINDINGS: BMD and T-SCORES Lumbar spine: 0.850 g/cm2, T-score -1.5 Levels: L1 through L4 Left femoral neck: 0.717 g/cm2, T-score -1.2 Left total hip: 0.874 g/cm2, T-score -0.6 Right femoral neck: 0.733 g/cm2, T-score -1.0 Right total hip: 0.870 g/cm2, T-score -0.6 The World Health Organization has defined the following categories based on bone density: Normal bone density: T-score equal to or greater than -1.0 Osteopenia: T-score between -1.0 and -2.5 Osteoporosis: T-score equal to or less than -2.5 FRAX (or Comparable) Fracture Risk Assessment: 10 Year Probability of Fracture: Major Osteoporotic Fracture: 22% Hip Fracture: 4.8% (Note: FRAX is not to be reported in setting of normal range bone density, osteoporosis on DEXA, known history of osteoporosis, prior osteoporotic hip or vertebral fracture, or for any patient undergoing pharmacological treatment for bone loss.) The National Osteoporosis Foundation (NOF) recommends pharmacological treatment for patients with a FRAX 10-year risk of 3% or higher for a hip fracture, or 20% or higher for a major osteoporotic fracture, to prevent osteoporosis and reduce fracture risk. The patient does not meet the pharmacological treatment recommendations for prevention of osteoporosis. BD/Dexa Bone Density Study IMPRESSION: OSTEOPENIA. Recommend follow-up as clinically warranted. Reading Location: [id number]
--- NOTE | 2025-03-29 13:46 | BI_ITS ---
EXAM: SCRN MAMM (CAD)W/LUCILLE BILAT DATE: 03/29/2025 CLINICAL HISTORY: F, Age 69 y/o , SCREENING TECHNIQUE: Procedure Code: [id number] Modality: MG Procedure: SCRN MAMM (CAD)W/LUCILLE BILAT COMPARISON: Prior exam(s) dated 03/27/2024, 03/22/2023. FINDINGS: TISSUE DENSITY: The breasts are heterogeneously dense, which may obscure small masses. The mammogram demonstrates that the patient has dense breasts. Supplemental screening with whole breast ultrasound or MRI may be considered for further evaluation. Bilateral Breast Mammographic Findings: No significant masses, calcifications or other abnormalities are identified. BI/SCRN MAMM (CAD)W/LUCILLE BILAT IMPRESSION: There is no mammographic evidence of malignancy. OVERALL FINAL ASSESSMENT BI-RADS 1: NEGATIVE. RECOMMENDATION: Routine annual follow-up in 1 Year Additional Recommendation none A letter with findings and recommendations will be mailed to the patient. Reading Location: [id number]
== END | disposition home or self-care (01) ==
LOC: OPBD 13:42
PROVIDERS: PCP Internal Medicine; Referring Provider Internal Medicine; Visit Provider Internal Medicine
DX: Z13.820 Encounter for screening for osteoporosis (principal); Z78.0 Asymptomatic menopausal state; Z12.31 Encounter for screening mammogram for malignant neoplasm of breast
CPT/HCPCS: 77063; 77067; 77080

== ENCOUNTER → 2025-04-26 | Outpatient (CLI) | payer MEDICARE, OTHER, SELFPAY | END | disposition home or self-care (01) | LOC: CIMLAB 07:19 | PROVIDERS: PCP Internal Medicine; Referring Provider Internal Medicine; Visit Provider Internal Medicine | DX: E03.9 Hypothyroidism, unspecified (principal) | CPT/HCPCS: 36415; 84439; 84443 ==